=== PATIENT | male | born 1950 | race Hispanic/Latino ===

== ENCOUNTER 2016-08-06 22:38 | Observation (INO) | payer OTHER ==
[2016-08-06 22:49] VITALS: BMI 24.3
--- NOTE | 2016-08-06 23:01 | ED PDOC ---
Arrival/HPI - General Chief Complaint: Alcohol Ingestion Time Seen by Provider: 08/06/16 22:49 Historian: Patient, EMS - History of Present Illness Narrative History of Present Illness (Text): 08/06/16 23:00 Lloyd Sharma is a 65 year old male, whose past medical history includes gastritis, depression, anxiety, hypertension, chronic alcohol abuse, who presents to the Emergency department brought in by EMS for alcohol intoxication. Patient also admits to drinking alcohol. Patient has a history of rib fracture and reports he is also experiencing chronic left-sided rib pain. Patient denies any fever, chills, shortness of breath, nausea, vomiting, diarrhea, urinary symptoms, back pain, neck pain, headache, dizziness, or any other complaints. Time/Duration: Other (tonight) Symptom Onset: Gradual Symptom Course: Unchanged Activities at Onset: Rest, Light Context: Home Past Medical History - Provider Review Nursing Documentation Reviewed: Yes - Infectious Disease Hx of Infectious Diseases: None - Tetanus Immunization Tetanus Immunization: Unknown - Past Medical History Past Medical History: Unable to Obtain - Cardiac Hx Cardiac Disorders: No Hx Hypertension: No - Pulmonary Hx Pneumonia: Yes (01-06-15) - Neurological Hx Seizures: No - HEENT Hx HEENT Disorder: Yes - Renal Hx Renal Disorder: No - Endocrine/Metabolic Hx Endocrine Disorders: No - Hematological/Oncological Hx Blood Disorders: No Hx Cancer: No - Integumentary Hx Dermatological Disorder: Yes Other/Comment: multiple long scars to left forearm, multiple abrasions to right knee and b/l lower legs, poor hygiene - Musculoskeletal/Rheumatological Hx Fractures: Yes (LEFT HIP,LEFT ARM LEG) - Gastrointestinal Hx Gastritis: Yes Hx Gastrointestinal Ulcer: Yes - Genitourinary/Gynecological Hx Sexually Transmitted Diseases: No - Psychiatric Hx Anxiety: Yes Hx Bipolar Disorder: No Hx Depression: Yes Hx Schizophrenia: No Hx Substance Use: No (DENIES) - Past Surgical History Past Surgical History: Unable to Obtain - Surgical History Hx Appendectomy: Yes Hx Cholecystectomy: Yes - Anesthesia Hx Anesthesia: Yes Hx Anesthesia Reactions: No Hx Malignant Hyperthermia: No - Suicidal Assessment Feels Threatened In Home Enviroment: No Family/Social History - Physician Review Nursing Documentation Reviewed: Yes Family/Social History: No Known Family HX Smoking Status: Current Some Days Smoker Hx Alcohol Use: Yes (DRINKS DAILY VODKA 1.5 LITER) Hx Substance Use: No (DENIES) Hx Substance Use Treatment: Yes Allergies/Home Meds Allergies/Adverse Reactions: Allergies No Known Allergies Allergy (Verified 07/24/16 17:32) Home Medications: Home Meds Medication Instructions Recorded Confirmed Docusate Sodium [Col-Rite] 1 - 2 cap PO Q8 PRN 04/28/16 04/28/16 Lubiprostone [Amitiza] 8 mcg PO DAILY 04/28/16 04/28/16 Review of Systems - Physician Review All systems were reviewed & negative as marked: Yes - Review of Systems Constitutional: Normal. absent: Fevers Eyes: Normal ENT: Normal Respiratory: Normal. absent: SOB, Cough Gastrointestinal: Normal. absent: Abdominal Pain, Diarrhea, Nausea, Vomiting Genitourinary Male: Normal. absent: Dysuria, Frequency, Hematuria, Urinary Output Changes Musculoskeletal: Other (+left-sided rib pain). absent: Back Pain, Neck Pain Skin: Normal. absent: Rash Neurological: Normal. absent: Headache, Dizziness Endocrine: Normal Hemo/Lymphatic: Normal Psychiatric: Normal Physical Exam Vital Signs Reviewed: Yes Vital Signs Temp Pulse Resp BP Pulse Ox 08/07/16 18:00 98 F 96 H 18 119/71 96 08/07/16 16:00 95 H 18 111/88 96 08/07/16 13:57 92 H 18 116/88 96 08/07/16 11:50 95 H 20 100/90 96 08/07/16 10:14 102 H 18 105/50 L 97 08/07/16 07:51 99 H 18 123/74 95 08/07/16 05:10 101 H 18 124/79 94 L 08/07/16 04:12 98 H 18 111/67 95 08/07/16 02:05 97.8 F 93 H 16 104/66 95 08/06/16 23:19 97.6 F 100 H 18 112/76 96 Temperature: Afebrile Blood Pressure: Normal Pulse: Regular Respiratory Rate: Normal Appearance: Positive for: Well-Appearing, Non-Toxic, Comfortable Pain Distress: None Mental Status: Positive for: Alert and Oriented X 3 - Systems Exam Head: Present: Atraumatic, Normocephalic Pupils: Present: PERRL Extroacular Muscles: Present: EOMI Conjunctiva: Present: Normal Mouth: Present: Moist Mucous Membranes Neck: Present: Normal Range of Motion Respiratory/Chest: Present: Clear to Auscultation, Good Air Exchange. No: Respiratory Distress, Accessory Muscle Use Cardiovascular: Present: Regular Rate and Rhythm, Normal S1, S2. No: Murmurs Abdomen: Present: Normal Bowel Sounds. No: Tenderness, Distention, Peritoneal Signs Back: Present: Normal Inspection Upper Extremity: Present: Normal Inspection. No: Cyanosis, Edema Lower Extremity: Present: Normal Inspection. No: Edema Neurological: Present: GCS=15, CN II-XII Intact, Speech Normal Skin: Present: Warm, Dry, Normal Color. No: Rashes Psychiatric: Present: Alert, Oriented x 3, Normal Insight, Normal Concentration Medical Decision Making ED Course and Treatment: 08/06/16 23:00 Impression: 65 year old male brought in by EMS for left-sided rib pain and alcohol intoxication tonight. Differential Diagnosis include but are not limited to: alcohol intoxication vs. chronic pain vs. musculoskeletal pain Plan: -- EKG -- Chest X-ray -- Labs, alcohol level -- Reassess and disposition Prior Visits: Notes and results from previous visits were reviewed. - Lab Interpretations I have reviewed the lab results: Yes - EKG Interpretation Interpreted by ED Physician: Yes Type: 12 lead EKG - Medication Orders Current Medication Orders: Discontinued Medications Diazepam (Valium) 2 mg PO STAT STA PRN Reason: Protocol Stop: 08/07/16 07:49 Last Admin: 08/07/16 07:55 Dose: 2 MG Behavioural Document 08/07/16 07:55 [facility] (Rec: 08/07/16 07:55 [facility] [id number]) Maintenance Maintenance Dose No Nonmedicinal Nonmedicinal Interventions See nurse's notes Behavior Behavior for Medication: Anxiety Lorazepam (Ativan) 1 mg PO ONCE ONE PRN Reason: Protocol Stop: 08/07/16 10:00 Last Admin: 08/07/16 10:12 Dose: 1 MG Behavioural Document 08/07/16 10:12 [facility] (Rec: 08/07/16 10:12 [facility] [id number]) Maintenance Maintenance Dose No Nonmedicinal Nonmedicinal Interventions See nurse's notes Behavior Behavior for Medication: Anxiety Lorazepam (Ativan) 1 mg PO ONCE ONE PRN Reason: Protocol Stop: 08/07/16 13:47 Last Admin: 08/07/16 13:55 Dose: 1 MG Behavioural Document 08/07/16 13:55 [facility] (Rec: 08/07/16 13:55 [facility] [id number]) Maintenance Maintenance Dose No Nonmedicinal Nonmedicinal Interventions See nurse's notes Behavior Behavior for Medication: Anxiety ED OBSERVATION Date of observation admission: 08/06/16 Time of observation admission: 23:00 - Observation admission statement Patient is being placed in observation because:: alcohol intoxication - Goals of Observation Goals of observation are:: sobriety, observe for signs of withdrawal - Progress Note Progress Note: 08/06/16 23:00 Pt brought in for alcohol intoxication, chronic left-sided rib pain. Pt in no acute distress. Will observe until morning pending sobriety. 08/07/16 01:00 Reviewed radiology, Chest X-ray shows no active disease, no evidence of acute fracture. 08/07/16 01:41 reviewed labs, alcohol level:343. Pt resting comfortably, in no acute distress. 08/07/16 01:58 Reviewed EKG, sinus tachycardia at 102 bpm. No acute changes. Pt resting comfortably, no new complaints. 08/07/16 03:17 Pt sleeping currently, in no acute distress. 08/07/16 05:17 Pt resting comfortably, no new complaints. 08/07/16 07:[address] Crespo, pending sobriety, re-evaluation, and final disposition. - Scribe Statement The provider has reviewed the documentation as recorded by the Nadiya Jarrett Provider Attestation: All medical record entries made by the Khloeibadán were at my direction and personally dictated by me. I have reviewed the chart and agree that the record accurately reflects my personal performance of the history, physical exam, medical decision making, and the department course for this patient. I have also personally directed, reviewed, and agree with the discharge instructions and disposition. Disposition/Present on Arrival - Present on Arrival Any Indicators Present on Arrival: No History of DVT/PE: No History of Uncontrolled Diabetes: No Urinary Catheter: No History of Decub. Ulcer: No History Surgical Site Infection Following: None - Disposition Have Diagnosis and Disposition been Completed?: No Diagnosis: Alcohol intoxication Disposition: HOME/ ROUTINE Disposition Time: 07:00 Condition: STABLE
[2016-08-07 00:45] LABS: HEMATOCRIT 38.1 % (42.0-52.0); MEAN CORPUSCULAR HEMOGLOBIN 31.5 pg (25.0-35.0); MEAN CORPUSCULAR HGB CONC 35.4 g/dl (31.0-37.0); RED CELL DISTRIBUTION WIDTH 17.4 % (11.5-14.5); WHITE BLOOD COUNT 8.7 10^3/ul (4.5-11.0)
[2016-08-07 01:00] LABS: ALB/GLOB RATIO 1.2 (1.1-1.8); ALKALINE PHOSPHATASE 106 U/L (38-133); ALT/SGPT 40 U/L (7-56); AST/SGOT 67 U/L (15-59); BILIRUBIN,TOTAL 0.7 mg/dL (0.2-1.3); BLOOD UREA NITROGEN 9 mg/dL (7-21); CALCIUM 8.8 mg/dL (8.4-10.5); CARBON DIOXIDE 30 mmol/L (21-33); CHLORIDE 99 mmol/L (95-110); GFR AFRICAN-AMERICAN > 60; GLUCOSE,RANDOM 94 mg/dL (70-110); POTASSIUM 4.1 mmol/L (3.6-5.0); SODIUM 144 mmol/L (132-148); TOTAL PROTEIN 7.4 g/dL (5.8-8.3)
--- NOTE | 2016-08-07 07:46 | RAD ---
HISTORY: fever COMPARISON: Comparison chest dated 07/25/2016. FINDINGS: LUNGS: Hyperinflation consistent with underlying chronic changes of COPD and or emphysema. Mild biapical pleural thickening and associated adjacent parenchymal scarring/ fibrosis right greater than left. Bibasilar atelectasis and or scarring changes left greater than right. . . Re- demonstrated is apparent tiny granuloma left lung apex PLEURA: No significant pleural effusion identified, no pneumothorax apparent. CARDIOVASCULAR: Heart size is within range of normal. OSSEOUS STRUCTURES: No significant abnormalities. VISUALIZED UPPER ABDOMEN: Normal. OTHER FINDINGS: None. IMPRESSION: Hyperinflation consistent with underlying chronic changes of COPD and or emphysema. Mild biapical pleural thickening and associated adjacent parenchymal scarring/ fibrosis right greater than left. Bibasilar atelectasis and or scarring changes left greater than right. . . Re- demonstrated is apparent tiny granuloma left lung apex
--- NOTE | 2016-08-07 08:13 | ED PDOC ---
Physical Exam Vital Signs Reviewed: Yes Vital Signs Temp Pulse Resp BP Pulse Ox 08/07/16 13:57 92 H 18 116/88 96 08/07/16 11:50 95 H 20 100/90 96 08/07/16 10:14 102 H 18 105/50 L 97 08/07/16 07:51 99 H 18 123/74 95 08/07/16 05:10 101 H 18 124/79 94 L 08/07/16 04:12 98 H 18 111/67 95 08/07/16 02:05 97.8 F 93 H 16 104/66 95 08/06/16 23:19 97.6 F 100 H 18 112/76 96 Temperature: Afebrile Blood Pressure: Normal Pulse: Tachycardic Respiratory Rate: Normal Appearance: Positive for: Well-Appearing Pain Distress: None Mental Status: Positive for: Alert and Oriented X 3 Medical Decision Making ED Course and Treatment: 08/07/16 08:12 Patient was brought in to emergency department for public alcohol intoxication. Patient endorsed to me by , pending sobriety and reevaluation. Patient sober and steady. Sister arrived to take patient home. - Medication Orders Current Medication Orders: Discontinued Medications Diazepam (Valium) 2 mg PO STAT STA PRN Reason: Protocol Stop: 08/07/16 07:49 Last Admin: 08/07/16 07:55 Dose: 2 MG Behavioural Document 08/07/16 07:55 [facility] (Rec: 08/07/16 07:55 [facility] [id number]) Maintenance Maintenance Dose No Nonmedicinal Nonmedicinal Interventions See nurse's notes Behavior Behavior for Medication: Anxiety Lorazepam (Ativan) 1 mg PO ONCE ONE PRN Reason: Protocol Stop: 08/07/16 10:00 Last Admin: 08/07/16 10:12 Dose: 1 MG Behavioural Document 08/07/16 10:12 [facility] (Rec: 08/07/16 10:12 [facility] [id number]) Maintenance Maintenance Dose No Nonmedicinal Nonmedicinal Interventions See nurse's notes Behavior Behavior for Medication: Anxiety Lorazepam (Ativan) 1 mg PO ONCE ONE PRN Reason: Protocol Stop: 08/07/16 13:47 Last Admin: 08/07/16 13:55 Dose: 1 MG Behavioural Document 08/07/16 13:55 [facility] (Rec: 08/07/16 13:55 [facility] [place] [id number]) Maintenance Maintenance Dose No Nonmedicinal Nonmedicinal Interventions See nurse's notes Behavior Behavior for Medication: Anxiety Disposition/Present on Arrival - Present on Arrival Any Indicators Present on Arrival: No History of DVT/PE: No History of Uncontrolled Diabetes: No Urinary Catheter: No History of Decub. Ulcer: No History Surgical Site Infection Following: None - Disposition Have Diagnosis and Disposition been Completed?: Yes Diagnosis: Alcohol intoxication Disposition: HOME/ ROUTINE Disposition Time: 16:54 Patient Plan: Discharge Patient Problems: Current Active Problems Problem Status Diagnosed Alcohol intoxication Acute Condition: STABLE
[2016-08-07 11:53] VITALS: O2SAT 96
[2016-08-07 14:00] VITALS: RESP 18
[2016-08-07 18:41] VITALS: BP 119/71; PULSE 96; TEMP 98
--- NOTE | 2016-08-07 20:02 | CARD ---
APPROVED REPORT EKG Measurement Heart [id number] <Conclusion> Sinus tachycardia Otherwise normal ECG
== END 2016-08-07 16:55 | disposition home or self-care (01) ==
LOC: ED 22:38 → EROBSV 23:00
PROVIDERS: ADMIT Emergency Medicine; ATTEND Emergency Medicine
DX: F10.129 Alcohol abuse with intoxication, unspecified (principal); Y90.8 Blood alcohol level of 240 mg/100 ml or more; I10 Essential (primary) hypertension
CPT/HCPCS: 71010; 80053; 80320; 85027; 93005; 99285; G0378

== ENCOUNTER 2016-08-17 09:43 | Inpatient (IN) | payer OTHER, MEDICAID ==
[2016-08-17 09:51] VITALS: BMI 18.6
--- NOTE | 2016-08-17 10:05 | ED PDOC ---
Arrival/HPI - General Chief Complaint: Trauma Time Seen by Provider: 08/17/16 09:50 Historian: Patient - History of Present Illness Narrative History of Present Illness (Text): 08/17/16 10:02 65 year old male with a past medical history that includes gastritis, depression , anxiety, hypertension, hepatomegaly, chronic alcohol abuse, presents to the emergency department after fall today. Patient reports last drink was yesterday. pt angelito historian, well known to er for multiple visits for etoh abuse. No family members present at bedside to give further history. Time/Duration: Prior to Arrival Symptom Onset: Sudden Symptom Course: Unchanged Modifying Factors (Text): None Associated Symptoms (Text): None Past Medical History - Provider Review Nursing Documentation Reviewed: Yes - Infectious Disease Hx of Infectious Diseases: None - Tetanus Immunization Tetanus Immunization: Unknown - Past Medical History Past Medical History: Unable to Obtain - Cardiac Hx Cardiac Disorders: No Hx Hypertension: No - Pulmonary Hx Pneumonia: Yes (01-06-15) - Neurological Hx Seizures: No - HEENT Hx HEENT Disorder: Yes - Renal Hx Renal Disorder: No - Endocrine/Metabolic Hx Endocrine Disorders: No - Hematological/Oncological Hx Blood Disorders: No Hx Cancer: No - Integumentary Hx Dermatological Disorder: Yes Other/Comment: multiple long scars to left forearm, multiple abrasions to right knee and b/l lower legs, poor hygiene - Musculoskeletal/Rheumatological Hx Fractures: Yes (LEFT HIP,LEFT ARM LEG) - Gastrointestinal Hx Gastritis: Yes Hx Gastrointestinal Ulcer: Yes - Genitourinary/Gynecological Hx Sexually Transmitted Diseases: No - Psychiatric Hx Anxiety: Yes Hx Bipolar Disorder: No Hx Depression: Yes Hx Schizophrenia: No Hx Substance Use: No (DENIES) - Past Surgical History Past Surgical History: Unable to Obtain - Surgical History Hx Appendectomy: Yes Hx Cholecystectomy: Yes - Anesthesia Hx Anesthesia: Yes Hx Anesthesia Reactions: No Hx Malignant Hyperthermia: No - Suicidal Assessment Feels Threatened In Home Enviroment: No Family/Social History - Physician Review Nursing Documentation Reviewed: Yes Family/Social History: Unknown Family HX Smoking Status: Current Some Days Smoker Hx Alcohol Use: Yes (DRINKS DAILY VODKA 1.5 LITER) Hx Substance Use: No (DENIES) Hx Substance Use Treatment: Yes Allergies/Home Meds Allergies/Adverse Reactions: Allergies No Known Allergies Allergy (Verified 08/17/16 21:58) Home Medications: Home Meds Medication Instructions Recorded Confirmed No Known Home Med 08/17/16 08/17/16 Physical Exam Vital Signs Reviewed: Yes Vital Signs Temp Pulse Resp BP Pulse Ox 08/17/16 20:13 98.2 F 117 H 22 118/79 95 08/17/16 16:15 90 16 97/59 L 95 08/17/16 15:00 87 18 116/65 95 08/17/16 13:58 111 H 21 118/61 96 08/17/16 12:39 106 H 18 111/73 95 08/17/16 11:43 95 H 16 109/77 92 L 08/17/16 09:51 98.3 F 107 H 18 125/85 100 Temperature: Afebrile Blood Pressure: Normal Pulse: Tachycardic Respiratory Rate: Normal Appearance: Positive for: Well-Appearing, Non-Toxic, Comfortable Pain Distress: None Mental Status: Positive for: other (Awake, alert, cooperative) Finger Stick Blood Glucose: 69 - Systems Exam Head: Present: Normocephalic, Abrasion (to the right side of the forehead) Conjunctiva: Present: Injected (right eye injected, left eye normal) Neck: Present: Normal Range of Motion Respiratory/Chest: Present: Clear to Auscultation, Good Air Exchange. No: Respiratory Distress, Accessory Muscle Use Cardiovascular: Present: Normal S1, S2. No: Murmurs Abdomen: Present: Normal Bowel Sounds. No: Tenderness, Distention, Peritoneal Signs Upper Extremity: Present: Normal Inspection. No: Cyanosis, Edema Lower Extremity: Present: Normal Inspection. No: Edema Neurological: Present: GCS=15, CN II-XII Intact, Speech Normal Skin: Present: Warm, Dry, Normal Color. No: Rashes Psychiatric: Present: Alert, Normal Concentration Medical Decision Making ED Course and Treatment: Impression: 65 year old male, pmhx that includes gastritis, depression, anxiety , htn, hepatomegaly, chronic alcohol abuse, presents to the emergency department with abrasion to the right side of the face s/p fall today. Differential Diagnosis include but are not limited to: Plan: -- CT head, Chest X-ray -- Librium -- Labs -- Reassess and disposition Prior Visits: Notes and results from previous visits were reviewed. Patient last seen in ED on 08/06/16 for alcohol intoxication and discharged home. EKG: Ordered, reviewed, and independently interpreted the EKG. Rate : 100 BPM Rhythm : NSR Interpretation : No ST/T wave changes Comparison : No changes from previous EKG Progress Notes: 08/17/16 11:47 noted mild thromobcytopenia, pt has had in past. suspected 2/2 etoh abuse, hepatosplenomegaly. no e/o of active bleeding. 08/17/16 12:22 pt sleeping in nad. head ct neg. cxr neg as read by me. pt given food/juice for mild hypoglycemia 08/17/16 17:33 pt reassessed. now tachcardic to 130, tremlous. h/o of etoh w/d. ativan givne. dr park accepts - Lab Interpretations Lab Results: 08/17/16 10:45 08/17/16 10:45 Lab Results 08/17/16 10:45: WBC 9.1, RBC 4.35, Hgb 13.8 L, Hct 39.7 L, MCV 91.3, MCH 31.7, MCHC 34.8, RDW 17.7 H, Plt Count 73 L, MPV 11.0, Gran % 85.3 H, Lymph % (Auto) 8.1 L, Haakon % (Auto) 6.5 H, Eos % (Auto) 0.0 L, Baso % (Auto) 0.1, Gran # 7.78 H , Lymph # 0.7 L, Haakon # 0.6, Eos # 0.0, Baso # 0.01, PT 10.0, INR 0.93, APTT 30.5, Sodium 135, Potassium 3.3 L, Chloride 89 L, Carbon Dioxide 21, Anion Gap 28 H, BUN 17, Creatinine 0.7, Est GFR ( Amer) > 60, Est GFR (Non-Af Amer ) > 60, Random Glucose 66 L, Calcium 8.6, Phosphorus 3.6, Magnesium 2.1, Total Bilirubin 1.2, AST 135 H, ALT 67 H, Alkaline Phosphatase 114, Lactate Dehydrogenase 801 H, Total Creatine Kinase 179, Troponin I < 0.01, Total Protein 7.8, Albumin 4.4, Globulin 3.4, Albumin/Globulin Ratio 1.3, Lipase 290, Alcohol, Quantitative 190 H - RAD Interpretation Narrative RAD Interpretations (Text): CT Head Foundation Relations Manager: Dr. Miller Selina Normal CT of the head Radiology Orders: 08/17/16 10:01 HEAD W/O CONTRAST [CT] Stat 08/17/16 10:02 CHEST PORTABLE [RAD] Stat Core Feeder: Radiologist - EKG Interpretation Interpreted by ED Physician: Yes Type: 12 lead EKG - Medication Orders Current Medication Orders: Multivitamins/Vitamin C 10 ml/Thiamine HCl 100 mg/ Folic Acid 1 mg/ Sodium Chloride 1,011.2 mls @ 100 mls/hr IV .[id number] ONE Stop: 08/18/16 17:05 Lorazepam (Ativan) 2 mg IVP Q2H PRN; Protocol PRN Reason: Symptoms of alcohol withdrawl Last Admin: 08/17/16 20:00 Dose: 2 MG Behavioural Document 08/17/16 20:00 [facility] (Rec: 08/17/16 20:01 [id number] Maintenance Maintenance Dose No Nonmedicinal Nonmedicinal Interventions See nurse's notes Behavior Behavior for Medication: Anxiety Behavior Comment alcohol withdrawal IVP Administration Document 08/17/16 20:00 MMA (Rec: 08/17/16 20:01 [id number] Charges for Administration # of IVP Administrations 1 Re-Assess: Reassess Psych Meds Document 08/17/16 20:30 DS (Rec: 08/17/16 20:37 DS [id number]) Reassess Psych Med Effective Lorazepam (Ativan) 2 mg IVP Q4H SUMIT PRN Reason: Protocol Last Admin: 08/18/16 03:46 Dose: 2 MG Behavioural Document 08/18/16 03:46 DS (Rec: 08/18/16 03:47 DS [id number]) Nonmedicinal Nonmedicinal Interventions Therapeutic Communication Behavior Behavior for Medication: Anxiety Continuous pacing/restlessness IVP Administration Document 08/18/16 03:46 DS (Rec: 08/18/16 03:47 DS [id number]) Charges for Administration # of IVP Administrations 1 Re-Assess: Reassess Psych Meds Document 08/18/16 04:16 DS (Rec: 08/18/16 04:22 DS [id number]) Reassess Psych Med Effective Ondansetron HCl (Zofran Inj) 4 mg IVP Q6H PRN PRN Reason: Nausea/Vomiting Pantoprazole Sodium (Protonix Inj) 40 mg IVP DAILY SUMIT Discontinued Medications Chlordiazepoxide (Librium) 50 mg PO STAT STA PRN Reason: Protocol Stop: 08/17/16 10:04 Last Admin: 08/17/16 10:48 Dose: 50 MG Behavioural Document 08/17/16 10:48 [facility] (Rec: 08/17/16 10:48 [id number]) Maintenance Maintenance Dose No Nonmedicinal Nonmedicinal Interventions Redirect Behavior Behavior for Medication: Anxiety Multivitamins/Vitamin C 10 ml/Thiamine HCl 100 mg/ Folic Acid 1 mg/ Potassium Chloride 40 meq/ Sodium Chloride 1,031.2 mls @ 100 mls/hr IV .[id number] ONE Stop: 08/18/16 05:52 Last Admin: 08/17/16 22:15 Dose: 100 MLS/HR eMAR Start Stop Document 08/17/16 22:15 DS (Rec: 08/17/16 22:15 DS [id number]) Intravenous Solution Start Date 08/17/16 Start Time 22:15 End Date 08/18/16 Lorazepam (Ativan) 1 mg IVP STAT STA PRN Reason: Protocol Stop: 08/17/16 17:22 Last Admin: 08/17/16 17:42 Dose: 1 MG Behavioural Document 08/17/16 17:42 MMA (Rec: 08/17/16 17:43 [id number] Maintenance Maintenance Dose No Nonmedicinal Nonmedicinal Interventions Redirect Behavior Behavior for Medication: Anxiety IVP Administration Document 08/17/16 17:42 MMA (Rec: 08/17/16 17:43 MMA [id number]) Charges for Administration # of IVP Administrations 1 Pneumococcal Polyvalent Vaccine (Pneumovax 23 Vaccine) 0.5 ml IM .ONCE ONE Stop: 08/17/16 22:37 Last Admin: 08/17/16 23:39 Dose: Potassium Chloride (K-Dur 20 Meq Er Tab) 40 meq PO STAT STA Stop: 08/17/16 11:42 Last Admin: 08/17/16 12:31 Dose: 40 MEQ ED OBSERVATION Date of observation admission: 08/17/16 Time of observation admission: 12:30 - Observation admission statement Patient is being placed in observation because:: alcohol intoxication - Goals of Observation Goals of observation are:: pending sobriety - Progress Note Progress Note: 08/17/16 12:31 Patient resting comfortably in no acute distress. - Scribe Statement The provider has reviewed the documentation as recorded by the Nadiya Mclean Provider Scribe Attestation: All medical record entries made by the Khloeibe were at my direction and personally dictated by me. I have reviewed the chart and agree that the record accurately reflects my personal performance of the history, physical exam, medical decision making, and the department course for this patient. I have also personally directed, reviewed, and agree with the discharge instructions and disposition. Disposition/Present on Arrival - Present on Arrival Any Indicators Present on Arrival: No History of DVT/PE: No History of Uncontrolled Diabetes: No Urinary Catheter: No History of Decub. Ulcer: No History Surgical Site Infection Following: None - Disposition Have Diagnosis and Disposition been Completed?: Yes Diagnosis: Alcohol withdrawal Disposition: HOSPITALIZED Disposition Time: 18:06 Patient Problems: Current Active Problems Problem Status Diagnosed Alcohol withdrawal Acute Condition: FAIR
[2016-08-17] MEDS ORDERED: TDAP Vaccine 0.5 mL Syr IM ONE (10:32)
[2016-08-17 10:57] LABS: ADD MANUAL DIFF? NO
[2016-08-17 11:00] LABS: BASO # 0.01 K/mm3 (0.0-2.0); BASO % 0.1 % (0.0-3.0); GRAN # 7.78 (1.4-6.5); GRAN % 85.3 % (50.0-68.0); HEMATOCRIT 39.7 % (42.0-52.0); LYMPH # 0.7 (1.2-3.4); LYMPH % 8.1 % (22.0-35.0); MEAN CELL VOLUME 91.3 fL (80.0-105.0); MEAN CORPUSCULAR HEMOGLOBIN 31.7 pg (25.0-35.0); MEAN CORPUSCULAR HGB CONC 34.8 g/dl (31.0-37.0); MONO # 0.6 (0.1-0.6); MONO % 6.5 % (1.0-6.0); PLATELET COUNT 73 10^3/uL (120.0-450.0); RED CELL DISTRIBUTION WIDTH 17.7 % (11.5-14.5); WHITE BLOOD COUNT 9.1 10^3/ul (4.5-11.0)
[2016-08-17 11:10] LABS: ALB/GLOB RATIO 1.3 (1.1-1.8); ALKALINE PHOSPHATASE 114 U/L (38-133); ALT/SGPT 67 U/L (7-56); AST/SGOT 135 U/L (15-59); BILIRUBIN,TOTAL 1.2 mg/dL (0.2-1.3); BLOOD UREA NITROGEN 17 mg/dL (7-21); CALCIUM 8.6 mg/dL (8.4-10.5); CARBON DIOXIDE 21 mmol/L (21-33); CHLORIDE 89 mmol/L (98-107); GFR AFRICAN-AMERICAN > 60; GLUCOSE,RANDOM 66 mg/dL (70-110); POTASSIUM 3.3 mmol/L (3.6-5.0); SODIUM 135 mmol/L (132-148); TOTAL PROTEIN 7.8 g/dL (5.8-8.3)
[2016-08-17 11:11] LABS: INR 0.93 (0.93-1.08); PARTIAL THROMBOPLASTIN TIME 30.5 Seconds (23.7-30.8)
[2016-08-17 11:38] LABS: TROPONIN I < 0.01 ng/mL
[2016-08-17] MEDS ORDERED: Potassium Chloride 20 mEq ER Tab PO STA (11:41)
--- NOTE | 2016-08-17 12:21 | CT ---
PROCEDURE: CT HEAD WITHOUT CONTRAST. HISTORY: fall COMPARISON: None available. TECHNIQUE: Axial computed tomography images were obtained through the head/brain without intravenous contrast. Radiation dose: Total exam DLP = 1500 mGy-cm. FINDINGS: HEMORRHAGE: No intracranial hemorrhage. BRAIN: No mass effect or edema. No atrophy or chronic microvascular ischemic changes. VENTRICLES: Unremarkable. No hydrocephalus. CALVARIUM: Unremarkable. PARANASAL SINUSES: Unremarkable as visualized. No significant inflammatory changes. MASTOID AIR CELLS: Unremarkable as visualized. No inflammatory changes. OTHER FINDINGS: None. IMPRESSION: Normal CT of the Head.
--- NOTE | 2016-08-17 13:48 | RAD ---
HISTORY: fall COMPARISON: No prior. FINDINGS: LUNGS: No active pulmonary disease. PLEURA: No significant pleural effusion identified, no pneumothorax apparent. CARDIOVASCULAR: Normal. OSSEOUS STRUCTURES: No significant abnormalities. VISUALIZED UPPER ABDOMEN: Normal. OTHER FINDINGS: None. IMPRESSION: No active disease.
--- NOTE | 2016-08-17 18:41 | CARD ---
APPROVED REPORT EKG Measurement Heart [id number] <Conclusion> Normal sinus rhythm Voltage criteria for left ventricular hypertrophy Abnormal ECG
[2016-08-17] MEDS ORDERED: Multivitamin (MVI) 10 ML, Thiamine 100 MG, Folic Acid 1 MG, Potassium Chloride 40 MEQ i... IV ONE (19:34)
[2016-08-17 19:59] LABS: URINE BILIRUBIN NEGATIVE (NEGATIVE); URINE BLOOD NEGATIVE (NEGATIVE); URINE GLUCOSE (UA) NEGATIVE (NEGATIVE); URINE KETONE 40 mg/dL (NEGATIVE); URINE LEUKOCYTE ESTERASE NEGATIVE Leu/uL (NEGATIVE); URINE PROTEIN 100 mg/dL (<30 mg/dL)
[2016-08-17 20:02] LABS: URINE APPEARANCE SL CLOUDY (CLEAR); URINE COLOR YELLOW (YELLOW)
--- NOTE | 2016-08-17 20:03 | CP.PCM.HP ---
History of Present Illness - History of Present Illness History of Present Illness: cc: Fall HPI: Patient is a 65 yo Male with past medical history of depression, anxiety, hypertension, hepatomegaly, chronic ETOH abuse that was brought in by EMS s/p fall at home. Patient states that he had one pint of vodka to drink earlier and shortly thereafter fell. He reported that his sister called EMS and he does not recall the specifics of his fall, however denies loss of consciousness. He reported poor appetite, epigastric abdominal tenderness as well as nausea but no vomiting. On arrival to the ED, patient's vitals were as follows: temperature 98.3F, heart rate 107bpm, BP 125/85, RR 18, O2sat 100% on room air. EKG revealed normal sinus rhythm at 100bpm with no acute ST-T wave changes. CXR was negative for acute pathology. Head CT was negative for fractures and acute intracranial pathology. Patient denied chest pain, palpitations, SOB, melena, hematochezia, hematemesis, fever, chills, cough. 12point ROS completed and as stated above, otherwise negative PMHx: depression, anxiety, hypertension, hepatomegaly, chronic ETOH abuse PSHx: Elzbieta oscar Family Hx: Non contributory Social Hx: Chronic ETOH abuse ~1liter vodka everyday, active tobacco user ~1ppd , denies illicit drug use Allergy: NKDA Present on Admission - Present on Admission Any Indicators Present on Admission: No Past Patient History - Infectious Disease Hx of Infectious Diseases: None - Tetanus Immunizations Tetanus Immunization: Unknown - Past Medical History & Family History Past Medical History?: Yes - Past Social History Smoking Status: Current Some Days Smoker - CARDIAC Hx Cardiac Disorders: No Hx Hypertension: No - PULMONARY Hx Pneumonia: Yes (01-06-15) - NEUROLOGICAL Hx Seizures: No - HEENT Hx HEENT Problems: Yes - RENAL Hx Chronic Kidney Disease: No - ENDOCRINE/METABOLIC Hx Endocrine Disorders: No - HEMATOLOGICAL/ONCOLOGICAL Hx Blood Disorders: No Hx Cancer: No - INTEGUMENTARY Hx Dermatological Problems: Yes Other/Comment: multiple long scars to left forearm, multiple abrasions to right knee and b/l lower legs, poor hygiene - MUSCULOSKELETAL/RHEUMATOLOGICAL Hx Fractures: Yes (LEFT HIP,LEFT ARM LEG) - GASTROINTESTINAL Hx Gastritis: Yes - GENITOURINARY/GYNECOLOGICAL Hx Sexually Transmitted Disorders: No - PSYCHIATRIC Hx Anxiety: Yes Hx Bipolar Disorder: No Hx Depression: Yes Hx Schizophrenia: No Hx Substance Use: No (DENIES) - SURGICAL HISTORY Hx Appendectomy: Yes Hx Cholecystectomy: Yes - ANESTHESIA Hx Anesthesia: Yes Hx Anesthesia Reactions: No Hx Malignant Hyperthermia: No Meds Allergies/Adverse Reactions: Allergies Allergy/AdvReac Type Severity Reaction Status Date / Time No Known Allergies Allergy Verified 08/17/16 09:47 Physical Exam - Constitutional Appears: No Acute Distress, Unkempt, Cachectic - Head Exam Head Exam: NORMOCEPHALIC - Eye Exam Eye Exam: EOMI, PERRL. absent: Periorbital swelling, Periorbital tenderness, Scleral icterus Additional comments: right eye conjuctival hemorrhage EOMI, PERRLA - ENT Exam ENT Exam: Mucous Membranes Moist - Respiratory Exam Respiratory Exam: Clear to Auscultation Bilateral. absent: Accessory Muscle Use , Chest Wall Tenderness, Rales, Rhonchi, Wheezes - Cardiovascular Exam Cardiovascular Exam: RRR, +S1, +S2. absent: Clicks, Diastolic murmur, Gallop, Rubs, Systolic Murmur - GI/Abdominal Exam GI & Abdominal Exam: Normal Bowel Sounds, Soft. absent: Distended, Firm, Guarding, Rebound, Tenderness - Neurological Exam Neurological exam: Alert, CN II-XII Intact, Oriented x3 Additional comments: tremulous - Psychiatric Exam Psychiatric exam: Anxious - Skin Skin Exam: Abrasion, Dry, Intact, Normal Color, Warm Results - Vital Signs Recent Vital Signs: Last Vital Signs Temp 98.3 F 08/17/16 09:51 Pulse 90 08/17/16 16:15 Resp 16 08/17/16 16:15 BP 97/59 L 08/17/16 16:15 Pulse Ox 95 08/17/16 16:15 - Labs Result Diagrams: 08/17/16 10:45 08/17/16 10:45 Assessment & Plan - Assessment and Plan (Free Text) Assessment: 65 yo Male with history of depression, anxiety, hypertension, hepatomegaly, chronic ETOH abuse that was brought in by EMS s/p fall at home. Admitted to chronic ETOH abuse and having had one pint of vodka today. 1. Alcohol intoxication/withdrawal 2. Thrombocytopenia likely 2/2 alcohol abuse 3. Hypokalemia 4. Transaminitis Plan: -Ativan 2q2 PRN and 2q4 SUMIT -Banana bag w/ potassium repletion -CIWA protocol -Aspiration/Seizure precautions -Lipase/Magnesium/Phosph pending -Drug screen pending -NPO diet -SCD's -Protonix for GI prophylaxis -EKG reviewed -CT Head and CXR reviewed - Date & Time Date: 08/17/16 Time: 20:12
[2016-08-17 20:06] LABS: URINE RBC NEGATIVE /hpf (0-2); URINE WBC 0 - 2 /hpf (0-6)
[2016-08-17 20:14] LABS: MAGNESIUM 2.1 mg/dL (1.7-2.2); PHOSPHOROUS 3.6 mg/dL (2.5-4.5)
[2016-08-17] MEDS ORDERED: Pneumococcal 23-Valent Vaccine IM ONE (22:36)
[2016-08-18 06:53] LABS: ADD MANUAL DIFF? NO
[2016-08-18] MEDS ORDERED: Multivitamin (MVI) 10 ML, Thiamine 100 MG, Folic Acid 1 MG in Sodium Chloride 0.9% 1,00... IV ONE (06:59)
[2016-08-18 07:01] LABS: GRAN % 84.1 % (50.0-68.0); HEMATOCRIT 33.5 % (42.0-52.0); LYMPH # 1.1 (1.2-3.4); LYMPH % 10.1 % (22.0-35.0); MEAN CELL VOLUME 90.3 fL (80.0-105.0); MEAN CORPUSCULAR HEMOGLOBIN 31.5 pg (25.0-35.0); MEAN CORPUSCULAR HGB CONC 34.9 g/dl (31.0-37.0); MEAN PLATELET VOLUME 10.4 fl (7.0-11.0); MONO # 0.6 (0.1-0.6); MONO % 5.8 % (1.0-6.0); PLATELET COUNT 63 10^3/uL (120.0-450.0); RED CELL DISTRIBUTION WIDTH 17.7 % (11.5-14.5); WHITE BLOOD COUNT 11.1 10^3/ul (4.5-11.0)
[2016-08-18 07:13] LABS: ALB/GLOB RATIO 1.2 (1.1-1.8); ALKALINE PHOSPHATASE 87 U/L (38-133); ALT/SGPT 44 U/L (7-56); AST/SGOT 86 U/L (15-59); BILIRUBIN,TOTAL 1.4 mg/dL (0.2-1.3); BLOOD UREA NITROGEN 17 mg/dL (7-21); CALCIUM 8.9 mg/dL (8.4-10.5); CARBON DIOXIDE 30 mmol/L (21-33); CHLORIDE 93 mmol/L (98-107); GFR AFRICAN-AMERICAN > 60; GLUCOSE,RANDOM 93 mg/dL (70-110); MAGNESIUM 1.9 mg/dL (1.7-2.2); PHOSPHOROUS 2.6 mg/dL (2.5-4.5); POTASSIUM 3.4 mmol/L (3.6-5.0); SODIUM 133 mmol/L (132-148); TOTAL PROTEIN 6.5 g/dL (5.8-8.3)
[2016-08-18] MEDS: Potassium Chloride 20 mEq 100 ML IVPB SCH ×2 (08:38→15:05)
--- NOTE | 2016-08-18 20:21 | CP.PCM.PN ---
Subjective - Date & Time of Evaluation Date of Evaluation: 08/18/16 Time of Evaluation: 20:20 - Subjective Subjective: # 22 angiocath was inserted in right arm. Dx:Poor venous access. Objective - Vital Signs/Intake and Output Vital Signs (last 24 hours): Temp Pulse Resp BP Pulse Ox 99.5 F 108 H 22 127/78 97 08/18/16 18:00 08/18/16 18:00 08/18/16 18:00 08/18/16 18:00 08/18/16 18:00 Intake and Output: 08/18/16 08/19/16 18:59 06:59 Intake Total 1320 Balance 1320 - Medications Medications: Current Medications Chlordiazepoxide (Librium) 25 mg PO Q8 PRN; Protocol PRN Reason: Symptoms of alcohol withdrawl Famotidine (Pepcid) 20 mg PO 1000,2200 [facility] Folic Acid (Folic Acid) 1 mg PO DAILY [facility] Lorazepam (Ativan) 2 mg IVP Q2H PRN; Protocol PRN Reason: Symptoms of alcohol withdrawl Last Admin: 08/18/16 15:11 Dose: 2 mg Lorazepam (Ativan) 2 mg IVP Q4H [facility] PRN Reason: Protocol Last Admin: 08/18/16 20:17 Dose: 2 mg Multivitamins (Thera Tab) 1 tab PO DAILY [facility] Ondansetron HCl (Zofran Inj) 4 mg IVP Q6H PRN PRN Reason: Nausea/Vomiting Thiamine HCl (Vitamin B1 Tab) 100 mg PO DAILY [facility]IT - Labs Labs: 08/18/16 06:51 08/18/16 06:51 PT 10.0 Seconds (9.9-11.8) 08/17/16 10:45 INR 0.93 (0.93-1.08) 08/17/16 10:45 APTT 30.5 Seconds (23.7-30.8) 08/17/16 10:45
[2016-08-19 06:46] LABS: HEMATOCRIT 33.7 % (42.0-52.0); MEAN CELL VOLUME 90.8 fL (80.0-105.0); MEAN CORPUSCULAR HEMOGLOBIN 31.3 pg (25.0-35.0); MEAN CORPUSCULAR HGB CONC 34.4 g/dl (31.0-37.0); MEAN PLATELET VOLUME 10.8 fl (7.0-11.0); RED CELL DISTRIBUTION WIDTH 17.3 % (11.5-14.5); WHITE BLOOD COUNT 7.6 10^3/ul (4.5-11.0)
[2016-08-19 07:11] LABS: ALKALINE PHOSPHATASE 88 U/L (38-133); ALT/SGPT 42 U/L (7-56); AST/SGOT 66 U/L (15-59); BILIRUBIN,TOTAL 1.2 mg/dL (0.2-1.3); BLOOD UREA NITROGEN 10 mg/dL (7-21); CALCIUM 8.9 mg/dL (8.4-10.5); CARBON DIOXIDE 28 mmol/L (21-33); CHLORIDE 95 mmol/L (95-110); GFR AFRICAN-AMERICAN > 60; GLUCOSE,RANDOM 85 mg/dL (70-110); MAGNESIUM 1.7 mg/dL (1.7-2.2); POTASSIUM 3.5 mmol/L (3.6-5.0); SODIUM 133 mmol/L (132-148); TOTAL PROTEIN 6.9 g/dL (5.8-8.3)
[2016-08-19] MEDS: Multivitamin Therapeutic Tab PO SCH (09:41)
--- NOTE | 2016-08-19 11:05 | CP.PCM.PN ---
<Mann Briscoe - Last Filed: 08/19/16 11:01> Subjective - Date & Time of Evaluation Date of Evaluation: 08/19/16 Time of Evaluation: 11:01 - Subjective Subjective: Pt seen and examined at bedside. Pt is lethargic this morning and unable to answer questions. Pt had no acute events overnight. Pt was agitated yesterday and received multiple doses of ativan during the day. Objective - Vital Signs/Intake and Output Vital Signs (last 24 hours): Temp Pulse Resp BP Pulse Ox 98 F 91 H 19 114/79 96 08/19/16 05:32 08/19/16 05:32 08/19/16 05:32 08/19/16 05:32 08/19/16 05:32 Intake and Output: 08/19/16 08/19/16 06:59 18:59 Intake Total 1320 Output Total 0 Balance 1320 - Medications Medications: Current Medications Chlordiazepoxide (Librium) 12.5 mg PO Q8 PRN; Protocol PRN Reason: Symptoms of alcohol withdrawl Famotidine (Pepcid) 20 mg PO 1000,2200 [facility] Last Admin: 08/19/16 09:41 Dose: 20 mg Folic Acid (Folic Acid) 1 mg PO DAILY [facility] Last Admin: 08/19/16 09:41 Dose: 1 mg Lorazepam (Ativan) 2 mg IVP Q2H PRN; Protocol PRN Reason: Symptoms of alcohol withdrawl Last Admin: 08/18/16 15:11 Dose: 2 mg Lorazepam (Ativan) 2 mg IVP Q4H [facility] PRN Reason: Protocol Last Admin: 08/19/16 08:42 Dose: 2 mg Multivitamins (Thera Tab) 1 tab PO DAILY [facility] Last Admin: 08/19/16 09:41 Dose: 1 tab Ondansetron HCl (Zofran Inj) 4 mg IVP Q6H PRN PRN Reason: Nausea/Vomiting Thiamine HCl (Vitamin B1 Tab) 100 mg PO DAILY [facility] Last Admin: 08/19/16 09:41 Dose: 100 mg - Labs Labs: 08/19/16 05:30 08/19/16 05:30 PT 10.0 Seconds (9.9-11.8) 08/17/16 10:45 INR 0.93 (0.93-1.08) 08/17/16 10:45 APTT 30.5 Seconds (23.7-30.8) 08/17/16 10:45 - Constitutional Appears: Non-toxic, No Acute Distress - Head Exam Head Exam: NORMOCEPHALIC - Eye Exam Additional comments: Right orbit hematoma - ENT Exam ENT Exam: Mucous Membranes Moist, Normal Exam - Respiratory Exam Respiratory Exam: Clear to Ausculation Bilateral, NORMAL BREATHING PATTERN. absent: Rhonchi, Wheezes - Cardiovascular Exam Cardiovascular Exam: RRR, +S1, +S2 - GI/Abdominal Exam GI & Abdominal Exam: Soft, Normal Bowel Sounds. absent: Tenderness - Extremities Exam Extremities Exam: Normal Inspection. absent: Calf Tenderness, Pedal Edema - Neurological Exam Neurological Exam: Awake - Skin Skin Exam: Normal Color, Warm Additional comments: Multiple abrasions over the legs b/l Assessment and Plan - Assessment and Plan (Free Text) Plan: 65 y/o M with PMH of depression, anxiety, hypertension, hepatomegaly, chronic ETOH abuse that presents for alcohol intoxication s/p fall. Pt had head CT in ED which was negative for acute pathology. Pt agitated yesterday and was given multiple doses of ativan for sedation. Pt is currently on a ymrna, but is lethargic, likely due to sedation. Pt will have librium tapered today. 1. Alcohol withdrawal - Banana bag - Librium changed to 12.5 mg q8h - Ativan prn - Seizure precautions - Aspiration precautions 2. Thrombocytopenia - likely secondary to alcohol induced bone-marrow suppression - Stable - Continue to monitor 3. Hypokalemia - K-rider given 4. PPX - Pepcid - SCDs Seen, reviewed, and discussed with attending. Luis Felipe, PGY-1 <Christy GOYAL,Lauren - Last Filed: 08/19/16 18:01> Objective - Vital Signs/Intake and Output Vital Signs (last 24 hours): Temp Pulse Resp BP Pulse Ox 98.9 F 103 H 20 108/73 98 08/19/16 15:43 08/19/16 15:43 08/19/16 15:43 08/19/16 15:43 08/19/16 15:43 Intake and Output: 08/19/16 08/19/16 06:59 18:59 Intake Total 1320 Output Total 0 Balance 1320 - Medications Medications: Current Medications Chlordiazepoxide (Librium) 12.5 mg PO Q8 PRN; Protocol PRN Reason: Symptoms of alcohol withdrawl Famotidine (Pepcid) 20 mg PO 1000,2200 [facility] Last Admin: 08/19/16 09:41 Dose: 20 mg Folic Acid (Folic Acid) 1 mg PO DAILY [facility] Last Admin: 08/19/16 09:41 Dose: 1 mg Lorazepam (Ativan) 2 mg IVP Q2H PRN; Protocol PRN Reason: Symptoms of alcohol withdrawl Last Admin: 08/18/16 15:11 Dose: 2 mg Lorazepam (Ativan) 2 mg IVP Q4H [facility] PRN Reason: Protocol Last Admin: 08/19/16 16:01 Dose: 2 mg Multivitamins (Thera Tab) 1 tab PO DAILY [facility] Last Admin: 08/19/16 09:41 Dose: 1 tab Ondansetron HCl (Zofran Inj) 4 mg IVP Q6H PRN PRN Reason: Nausea/Vomiting Thiamine HCl (Vitamin B1 Tab) 100 mg PO DAILY [facility] Last Admin: 08/19/16 09:41 Dose: 100 mg - Labs Labs: 08/19/16 05:30 08/19/16 05:30 PT 10.0 Seconds (9.9-11.8) 08/17/16 10:45 INR 0.93 (0.93-1.08) 08/17/16 10:45 APTT 30.5 Seconds (23.7-30.8) 08/17/16 10:45 Attending/Attestation - Attestation I have personally seen and examined this patient.: Yes I have fully participated in the care of the patient.: Yes I have reviewed all pertinent clinical information, including history, physical exam and plan: Yes Notes (Text): Patient was seen and examined with medical and scientific illustrator .Agreed with resident assessment and plan. Patient alcohol withdrawal are improving, no arrhythmia on telemetry, we will discontinue telemetry.Patient is high risk for fall.We will continue monitoring. Prognosis is guarded due to non compliance.
[2016-08-19] MEDS: Potassium Chloride 10 mEq 100 ML IVPB SCH ×2 (12:04→16:44)
--- NOTE | 2016-08-19 12:55 | CP.PCM.PN ---
Subjective - Date & Time of Evaluation Date of Evaluation: 08/18/16 Time of Evaluation: 08:15 - Subjective Subjective: Patient seen and examined at bedside. No acute events reported overnight. He complaints of tremor. Admits to still drinking about 1 pint daily. He appears comfortable eating breakfast without any other complaints. Review of Systems - Review of Systems All systems: reviewed and no additional remarkable complaints except - Constitutional Constitutional: Weakness. absent: Fever, Chills - EENT Eyes: absent: Blurred Vision Ears: absent: Dizziness - Cardiovascular Cardiovascular: absent: Chest Pain, Dyspnea - Respiratory Respiratory: absent: Cough, Dyspnea - Gastrointestinal Gastrointestinal: absent: Abdominal Pain, Nausea, Vomiting - Genitourinary Genitourinary: absent: Dysuria - Musculoskeletal Additional comments: tremor - Neurological Neurological: Tremor, Weakness - Psychiatric Psychiatric: absent: Anxiety Objective - Vital Signs/Intake and Output Vital Signs (last 24 hours): Temp Pulse Resp BP Pulse Ox 97.8 F 99 H 19 110/78 96 08/18/16 06:00 08/18/16 06:00 08/18/16 06:00 08/18/16 06:00 08/18/16 06:00 Intake and Output: 08/18/16 08/18/16 06:59 18:59 Intake Total 875 Output Total 400 Balance 475 - Medications Medications: Current Medications Multivitamins/Vitamin C 10 ml/Thiamine HCl 100 mg/ Folic Acid 1 mg/ Sodium Chloride 1,011.2 mls @ 100 mls/hr IV .Q10H7M ONE Stop: 08/18/16 17:05 Potassium Chloride (Potassium Chloride 20 Meq/100 Ml) 100 mls @ 50 mls/hr IVPB Q2H [facility] Stop: 08/18/16 11:44 Last Admin: 08/18/16 08:38 Dose: 50 mls/hr Lorazepam (Ativan) 2 mg IVP Q2H PRN; Protocol PRN Reason: Symptoms of alcohol withdrawl Last Admin: 08/17/16 20:00 Dose: 2 mg Lorazepam (Ativan) 2 mg IVP Q4H [facility] PRN Reason: Protocol Last Admin: 08/18/16 08:37 Dose: 2 mg Ondansetron HCl (Zofran Inj) 4 mg IVP Q6H PRN PRN Reason: Nausea/Vomiting Pantoprazole Sodium (Protonix Inj) 40 mg IVP DAILY [facility] Last Admin: 08/18/16 09:33 Dose: 40 mg - Labs Labs: 08/18/16 06:51 08/18/16 06:51 PT 10.0 Seconds (9.9-11.8) 08/17/16 10:45 INR 0.93 (0.93-1.08) 08/17/16 10:45 APTT 30.5 Seconds (23.7-30.8) 08/17/16 10:45 - Constitutional Appears: Well, No Acute Distress - Head Exam Additional comments: superficial cuts on face - Eye Exam Additional comments: eccymosis around right eye - ENT Exam ENT Exam: Normal Exam - Neck Exam Neck Exam: Full ROM - Respiratory Exam Respiratory Exam: Clear to Ausculation Bilateral. absent: Rales, Wheezes - Cardiovascular Exam Cardiovascular Exam: REGULAR RHYTHM, +S1, +S2 - GI/Abdominal Exam GI & Abdominal Exam: Soft, Normal Bowel Sounds. absent: Tenderness, Organomegaly - Extremities Exam Additional comments: +tremor of outstretched hands - Neurological Exam Neurological Exam: Awake, Oriented x3 - Psychiatric Exam Psychiatric exam: Normal Affect Assessment and Plan - Assessment and Plan (Free Text) Plan: This is a 65 year old male with past medical history of chronic alcohol abuse with multiple admissions for alcohol intoxication/withdrawal presented s/p fall at home. Found to have alcohol intoxication in ER, later complicated with withdrawals. 1. Alcohol withdrawal - Continue with banana bag, ativan deepak and ativan prn for withdrawal symptoms. He was counselled on risks of continued alcohol abuse. 2. S/p fall at home - Likely secondary to alcohol intoxication. CT head was negative. Will request for PT evaluation. 3. Elevated LFTs - Likely secondary to chronic etoh abuse. LFTs today are improving; will monitor. Last hepatitis panel was negative. 4. Hypokalemia - Will replete and repeat. 5. Thrombocytopenia - Likely secondary to chronic ETOH abuse. Will continue to monitor. Continue with SCDs for DVT prophylaxis and pepcid for GI prophylaxis.
[2016-08-19] MEDS ORDERED: Potassium Chloride 20 mEq/15 ml LIQ UD PO STA (16:41)
[2016-08-20 07:19] LABS: HEMATOCRIT 31.7 % (42.0-52.0); MEAN CELL VOLUME 92.2 fL (80.0-105.0); MEAN CORPUSCULAR HEMOGLOBIN 31.4 pg (25.0-35.0); MEAN CORPUSCULAR HGB CONC 34.1 g/dl (31.0-37.0); MEAN PLATELET VOLUME 10.4 fl (7.0-11.0); RED CELL DISTRIBUTION WIDTH 17.6 % (11.5-14.5); WHITE BLOOD COUNT 6.9 10^3/ul (4.5-11.0)
[2016-08-20 07:46] LABS: ALKALINE PHOSPHATASE 82 U/L (38-133); ALT/SGPT 41 U/L (7-56); AST/SGOT 54 U/L (15-59); BILIRUBIN,TOTAL 0.8 mg/dL (0.2-1.3); BLOOD UREA NITROGEN 15 mg/dL (7-21); CARBON DIOXIDE 26 mmol/L (21-33); CHLORIDE 96 mmol/L (98-107); GFR AFRICAN-AMERICAN > 60; GLUCOSE,RANDOM 92 mg/dL (70-110); POTASSIUM 4.3 mmol/L (3.6-5.0); SODIUM 130 mmol/L (132-148); TOTAL PROTEIN 6.5 g/dL (5.8-8.3)
[2016-08-20] MEDS ORDERED: Sodium Chloride 0.9% 1,000 ML IV STA (08:48)
[2016-08-20] MEDS: Multivitamin Therapeutic Tab PO SCH (09:39)
[2016-08-20 12:04] LABS: ARTERIAL BLOOD GAS HCO3 27.3 mmol/L (21-28); ARTERIAL BLOOD GAS O2 CAPACITY 14.4 mL/dl (16-24); ARTERIAL BLOOD GAS O2 CONTENT 14.2 ML/dl (15-23); ARTERIAL BLOOD HGB O2 SAT 95.1 % (95.0-98.0); CARBOXYHEMOGLOBIN 2.5 % (0.5-1.5); HHB 1.1 % (0-5); METHEMOGLOBIN 1.3 % (0.0-3.0)
[2016-08-21 07:17] LABS: MEAN CELL VOLUME 92.5 fL (80.0-105.0); MEAN CORPUSCULAR HEMOGLOBIN 31.3 pg (25.0-35.0); MEAN CORPUSCULAR HGB CONC 33.9 g/dl (31.0-37.0); MEAN PLATELET VOLUME 10.2 fl (7.0-11.0); RED CELL DISTRIBUTION WIDTH 17.6 % (11.5-14.5); WHITE BLOOD COUNT 8.5 10^3/ul (4.5-11.0)
[2016-08-21 07:25] LABS: ALKALINE PHOSPHATASE 77 U/L (38-133); ALT/SGPT 45 U/L (7-56); AST/SGOT 54 U/L (15-59); BILIRUBIN,TOTAL 0.7 mg/dL (0.2-1.3); BLOOD UREA NITROGEN 15 mg/dL (7-21); CALCIUM 9.2 mg/dL (8.4-10.5); CARBON DIOXIDE 27 mmol/L (21-33); CHLORIDE 95 mmol/L (98-107); GFR AFRICAN-AMERICAN > 60; GLUCOSE,RANDOM 92 mg/dL (70-110); POTASSIUM 4.1 mmol/L (3.6-5.0); SODIUM 131 mmol/L (132-148); TOTAL PROTEIN 6.6 g/dL (5.8-8.3)
[2016-08-21] MEDS: Multivitamin Therapeutic Tab PO SCH (10:35)
--- NOTE | 2016-08-21 13:06 | CP.PCM.PN ---
<Mann Briscoe - Last Filed: 08/21/16 13:07> Subjective - Date & Time of Evaluation Date of Evaluation: 08/20/16 Time of Evaluation: 09:00 - Subjective Subjective: Pt seen and examined at bedside. Pt not arousable and lethargic. No acute events overnight. Pt awake, but not responding to questions. ROS not obtainable. Objective - Vital Signs/Intake and Output Vital Signs (last 24 hours): Temp Pulse Resp BP Pulse Ox 98 F 93 H 20 108/70 94 L 08/21/16 08:11 08/21/16 08:11 08/21/16 08:11 08/21/16 08:11 08/21/16 08:11 Intake and Output: 08/21/16 08/21/16 06:59 18:59 Intake Total 540 Output Total 500 Balance 40 - Medications Medications: Current Medications Acetaminophen (Tylenol 325mg Tab) 650 mg PO Q4H PRN PRN Reason: Pain, moderate (4-7) Famotidine (Pepcid) 20 mg PO 1000,2200 [facility] Last Admin: 08/21/16 10:35 Dose: 20 mg Folic Acid (Folic Acid) 1 mg PO DAILY [facility] Last Admin: 08/21/16 10:34 Dose: 1 mg Multivitamins (Thera Tab) 1 tab PO DAILY [facility] Last Admin: 08/21/16 10:35 Dose: 1 tab Ondansetron HCl (Zofran Inj) 4 mg IVP Q6H PRN PRN Reason: Nausea/Vomiting Thiamine HCl (Vitamin B1 Tab) 100 mg PO DAILY [facility] Last Admin: 08/21/16 10:35 Dose: 100 mg - Labs Labs: 08/21/16 05:30 08/21/16 05:30 PT 10.0 Seconds (9.9-11.8) 08/17/16 10:45 INR 0.93 (0.93-1.08) 08/17/16 10:45 APTT 30.5 Seconds (23.7-30.8) 08/17/16 10:45 - Constitutional Appears: Non-toxic, No Acute Distress - Head Exam Head Exam: ATRAUMATIC, NORMAL INSPECTION, NORMOCEPHALIC - Respiratory Exam Respiratory Exam: Clear to Ausculation Bilateral, NORMAL BREATHING PATTERN. absent: Rhonchi, Wheezes - Cardiovascular Exam Cardiovascular Exam: RRR, +S1, +S2 - GI/Abdominal Exam GI & Abdominal Exam: Soft, Normal Bowel Sounds. absent: Tenderness - Extremities Exam Extremities Exam: Normal Inspection. absent: Calf Tenderness, Pedal Edema - Neurological Exam Neurological Exam: Alert, Awake Additional comments: Tremulous - Psychiatric Exam Psychiatric exam: Normal Affect, Normal Mood - Skin Skin Exam: Intact, Normal Color, Warm Assessment and Plan - Assessment and Plan (Free Text) Plan: 65 y/o M with PMH of depression, anxiety, hypertension, hepatomegaly, chronic ETOH abuse that presents for alcohol intoxication s/p fall. Head CT was negative. Pt too drowsy, all ativan and librium stopped at this time. Pt is off myrna at this time. Will continue to monitor for alcohol withdrawal. 1. Alcohol withdrawal - IVF stopped - Librium and ativan stopped 2. Thrombocytopenia - likely secondary to alcohol induced bone-marrow suppression - Stable - Continue to monitor 3. PPX - Pepcid - SCDs Seen, reviewed, and discussed with attending. Luis Felipe, PGY-1 <Christy GOYAL,Lauren - Last Filed: 08/21/16 16:59> Objective - Vital Signs/Intake and Output Vital Signs (last 24 hours): Temp Pulse Resp BP Pulse Ox 97.3 F L 98 H 20 97/71 L 97 08/21/16 16:00 08/21/16 16:00 08/21/16 16:00 08/21/16 16:00 08/21/16 16:00 Intake and Output: 08/21/16 08/21/16 06:59 18:59 Intake Total 540 Output Total 500 Balance 40 - Medications Medications: Current Medications Acetaminophen (Tylenol 325mg Tab) 650 mg PO Q4H PRN PRN Reason: Pain, moderate (4-7) Famotidine (Pepcid) 20 mg PO 1000,2200 [facility] Last Admin: 08/21/16 10:35 Dose: 20 mg Folic Acid (Folic Acid) 1 mg PO DAILY [facility] Last Admin: 08/21/16 10:34 Dose: 1 mg Multivitamins (Thera Tab) 1 tab PO DAILY [facility] Last Admin: 08/21/16 10:35 Dose: 1 tab Ondansetron HCl (Zofran Inj) 4 mg IVP Q6H PRN PRN Reason: Nausea/Vomiting Thiamine HCl (Vitamin B1 Tab) 100 mg PO DAILY [facility] Last Admin: 08/21/16 10:35 Dose: 100 mg - Labs Labs: 08/21/16 05:30 08/21/16 05:30 PT 10.0 Seconds (9.9-11.8) 08/17/16 10:45 INR 0.93 (0.93-1.08) 08/17/16 10:45 APTT 30.5 Seconds (23.7-30.8) 08/17/16 10:45 Attending/Attestation - Attestation I have personally seen and examined this patient.: Yes I have fully participated in the care of the patient.: Yes I have reviewed all pertinent clinical information, including history, physical exam and plan: Yes Notes (Text): 08/21/16 16:56 Patient was seen and examined with medical social consultant .Agreed with resident assessment and plan. Patient does not has any sign of alcohol withdrawal at this time.He is drowsy due to ativan given to him, benzodiazepam has been discontinued.There is no focal deficit.We will get physical therapy evaluation.He is very deconditioned , may need to go to rehab. Prognosis is guarded due to non compliance and ongoing alcohol abuse.
--- NOTE | 2016-08-21 13:15 | CP.PCM.PN ---
<Mann Briscoe - Last Filed: 08/21/16 13:12> Subjective - Date & Time of Evaluation Date of Evaluation: 08/21/16 Time of Evaluation: 13:12 - Subjective Subjective: Pt seen and examined at bedside. Pt states he is having left-sided rib pain today, worst with inspiration. Pt received one dose of ativan overnight, but has since been stopped due to prior lethargy. Denies CP, SOB, N/V/D. Objective - Vital Signs/Intake and Output Vital Signs (last 24 hours): Temp Pulse Resp BP Pulse Ox 98 F 93 H 20 108/70 94 L 08/21/16 08:11 08/21/16 08:11 08/21/16 08:11 08/21/16 08:11 08/21/16 08:11 Intake and Output: 08/21/16 08/21/16 06:59 18:59 Intake Total 540 Output Total 500 Balance 40 - Medications Medications: Current Medications Acetaminophen (Tylenol 325mg Tab) 650 mg PO Q4H PRN PRN Reason: Pain, moderate (4-7) Famotidine (Pepcid) 20 mg PO 1000,2200 [facility] Last Admin: 08/21/16 10:35 Dose: 20 mg Folic Acid (Folic Acid) 1 mg PO DAILY [facility] Last Admin: 08/21/16 10:34 Dose: 1 mg Multivitamins (Thera Tab) 1 tab PO DAILY [facility] Last Admin: 08/21/16 10:35 Dose: 1 tab Ondansetron HCl (Zofran Inj) 4 mg IVP Q6H PRN PRN Reason: Nausea/Vomiting Thiamine HCl (Vitamin B1 Tab) 100 mg PO DAILY [facility] Last Admin: 08/21/16 10:35 Dose: 100 mg - Labs Labs: 08/21/16 05:30 08/21/16 05:30 PT 10.0 Seconds (9.9-11.8) 08/17/16 10:45 INR 0.93 (0.93-1.08) 08/17/16 10:45 APTT 30.5 Seconds (23.7-30.8) 08/17/16 10:45 - Constitutional Appears: Non-toxic, No Acute Distress - Head Exam Head Exam: ATRAUMATIC, NORMAL INSPECTION, NORMOCEPHALIC - Eye Exam Eye Exam: absent: Periorbital swelling, Periorbital tenderness Additional comments: Right periorbital trace edema - ENT Exam ENT Exam: Mucous Membranes Moist, Normal Exam - Respiratory Exam Respiratory Exam: Clear to Ausculation Bilateral, NORMAL BREATHING PATTERN. absent: Rhonchi, Wheezes - Cardiovascular Exam Cardiovascular Exam: RRR, +S1, +S2 Additional comments: Left lower ribs tender to palpation - GI/Abdominal Exam GI & Abdominal Exam: Soft, Normal Bowel Sounds. absent: Tenderness - Extremities Exam Extremities Exam: Normal Inspection. absent: Calf Tenderness, Pedal Edema - Neurological Exam Neurological Exam: Alert, Awake, Oriented x3 - Psychiatric Exam Psychiatric exam: Normal Affect, Normal Mood - Skin Skin Exam: Normal Color, Warm Additional comments: Stage 2 ulcerations on lower back and right buttocks. Assessment and Plan - Assessment and Plan (Free Text) Plan: 65 y/o M with PMH of depression, anxiety, hypertension, hepatomegaly, chronic ETOH abuse that presents for alcohol intoxication s/p fall. Head CT negative after fall. Pt has been taken off all sedative medication. Pt will undergo left rib x-ray after complaining of pain today. Pt denied physical therapy today. 1. Alcohol withdrawal - Resolved, at baseline - No ativan or librium at this time - Monitor for worsening 2. Thrombocytopenia - Resolved - Continue to monitor 3. PPX - Pepcid - SCDs Seen, reviewed, and discussed with attending. Luis Felipe, PGY-1 <Christy GOYAL,Lauren - Last Filed: 08/21/16 17:01> Objective - Vital Signs/Intake and Output Vital Signs (last 24 hours): Temp Pulse Resp BP Pulse Ox 97.3 F L 98 H 20 97/71 L 97 08/21/16 16:00 08/21/16 16:00 08/21/16 16:00 08/21/16 16:00 08/21/16 16:00 Intake and Output: 08/21/16 08/21/16 06:59 18:59 Intake Total 540 Output Total 500 Balance 40 - Medications Medications: Current Medications Acetaminophen (Tylenol 325mg Tab) 650 mg PO Q4H PRN PRN Reason: Pain, moderate (4-7) Famotidine (Pepcid) 20 mg PO 1000,2200 [facility] Last Admin: 08/21/16 10:35 Dose: 20 mg Folic Acid (Folic Acid) 1 mg PO DAILY [facility] Last Admin: 08/21/16 10:34 Dose: 1 mg Multivitamins (Thera Tab) 1 tab PO DAILY [facility] Last Admin: 08/21/16 10:35 Dose: 1 tab Ondansetron HCl (Zofran Inj) 4 mg IVP Q6H PRN PRN Reason: Nausea/Vomiting Thiamine HCl (Vitamin B1 Tab) 100 mg PO DAILY [facility] Last Admin: 08/21/16 10:35 Dose: 100 mg - Labs Labs: 08/21/16 05:30 08/21/16 05:30 PT 10.0 Seconds (9.9-11.8) 08/17/16 10:45 INR 0.93 (0.93-1.08) 08/17/16 10:45 APTT 30.5 Seconds (23.7-30.8) 08/17/16 10:45 Attending/Attestation - Attestation I have personally seen and examined this patient.: Yes I have fully participated in the care of the patient.: Yes I have reviewed all pertinent clinical information, including history, physical exam and plan: Yes
[2016-08-22 07:23] LABS: HEMATOCRIT 31.5 % (42.0-52.0); MEAN CELL VOLUME 93.5 fL (80.0-105.0); MEAN CORPUSCULAR HEMOGLOBIN 31.2 pg (25.0-35.0); MEAN CORPUSCULAR HGB CONC 33.3 g/dl (31.0-37.0); MEAN PLATELET VOLUME 9.9 fl (7.0-11.0); RED CELL DISTRIBUTION WIDTH 17.5 % (11.5-14.5); WHITE BLOOD COUNT 4.9 10^3/ul (4.5-11.0)
[2016-08-22 07:25] LABS: ALB/GLOB RATIO 1.1 (1.1-1.8); ALKALINE PHOSPHATASE 70 U/L (38-133); ALT/SGPT 40 U/L (7-56); AST/SGOT 44 U/L (15-59); BILIRUBIN,TOTAL 0.7 mg/dL (0.2-1.3); BLOOD UREA NITROGEN 18 mg/dL (7-21); CALCIUM 8.9 mg/dL (8.4-10.5); CARBON DIOXIDE 29 mmol/L (21-33); CHLORIDE 98 mmol/L (98-107); GFR AFRICAN-AMERICAN > 60; GLUCOSE,RANDOM 96 mg/dL (70-110); POTASSIUM 3.9 mmol/L (3.6-5.0); SODIUM 133 mmol/L (132-148); TOTAL PROTEIN 6.7 g/dL (5.8-8.3)
[2016-08-22] MEDS: Multivitamin Therapeutic Tab PO SCH (09:22)
--- NOTE | 2016-08-22 16:02 | CP.PCM.PN ---
<Mann Briscoe - Last Filed: 08/22/16 16:25> Subjective - Date & Time of Evaluation Date of Evaluation: 08/22/16 Time of Evaluation: 15:59 - Subjective Subjective: Pt seen and examined at bedside. Pt states he is having pain on the left side of his ribs. Pt received tylenol overnight for his pain. Pt denies SOB, fever, chills, diarrhea, vomiting. Objective - Vital Signs/Intake and Output Vital Signs (last 24 hours): Temp Pulse Resp BP Pulse Ox 97.8 F 83 20 103/69 98 08/22/16 07:30 08/22/16 07:30 08/22/16 07:30 08/22/16 07:30 08/22/16 07:30 Intake and Output: 08/22/16 08/22/16 06:59 18:59 Intake Total 960 1420 Output Total 400 900 Balance 560 520 - Medications Medications: Current Medications Famotidine (Pepcid) 20 mg PO 1000,2200 [facility] Last Admin: 08/22/16 09:22 Dose: 20 mg Folic Acid (Folic Acid) 1 mg PO DAILY [facility] Last Admin: 08/22/16 09:21 Dose: 1 mg Ibuprofen (Motrin Tab) 400 mg PO Q6H PRN PRN Reason: Pain, moderate (4-7) Last Admin: 08/22/16 15:27 Dose: 400 mg Lorazepam (Ativan) 0.5 mg PO Q8H PRN; Protocol PRN Reason: Agitation Multivitamins (Thera Tab) 1 tab PO DAILY [facility] Last Admin: 08/22/16 09:22 Dose: 1 tab Ondansetron HCl (Zofran Tab) 4 mg PO Q8H PRN PRN Reason: Nausea/Vomiting Last Admin: 08/22/16 10:39 Dose: 4 mg Thiamine HCl (Vitamin B1 Tab) 100 mg PO DAILY [facility] Last Admin: 08/22/16 09:22 Dose: 100 mg - Labs Labs: 08/22/16 06:15 08/22/16 06:15 PT 10.0 Seconds (9.9-11.8) 08/17/16 10:45 INR 0.93 (0.93-1.08) 08/17/16 10:45 APTT 30.5 Seconds (23.7-30.8) 08/17/16 10:45 - Constitutional Appears: Non-toxic, No Acute Distress - Head Exam Head Exam: NORMOCEPHALIC - Eye Exam Eye Exam: EOMI, Periorbital swelling (Improving), Periorbital tenderness - Respiratory Exam Respiratory Exam: Clear to Ausculation Bilateral, NORMAL BREATHING PATTERN. absent: Rales, Rhonchi, Wheezes - Cardiovascular Exam Cardiovascular Exam: RRR, +S1, +S2 Additional comments: Pain on palpation of left lower ribs at midaxillary line. - GI/Abdominal Exam GI & Abdominal Exam: Soft, Normal Bowel Sounds. absent: Tenderness - Extremities Exam Extremities Exam: Normal Inspection. absent: Calf Tenderness, Pedal Edema - Neurological Exam Neurological Exam: Alert, Awake, Oriented x3 Additional comments: Tremulous, more than previous day - Psychiatric Exam Psychiatric exam: Normal Affect, Normal Mood - Skin Skin Exam: Intact, Normal Color, Warm Assessment and Plan - Assessment and Plan (Free Text) Plan: 65 y/o M with PMH of depression, anxiety, hypertension, hepatomegaly, chronic ETOH abuse that presents for alcohol intoxication s/p fall. Head CT negative. Pt anxious and tremulous earlier today, ativan 0.5 mg q8h added. Pt refusing physical therapy and rib xrays. Will get case management to aid in discharge planning as pt is homeless. Will also get psychiatry eval as pt is displaying increased level of anxiety. 1. Alcohol withdrawal - Tremulous today - Ativan regimen added, will not give too much to sedate pt further - Monitor for worsening symptoms 2. Anxiety - Ativan will help with restlessness and anxiety - Psych consulted - Monitor for worsening of symptoms. 3. PPX - Pepcid - SCDs Seen, reviewed, and discussed with attending. Luis Felipe, PGY-1 <Christy GOYAL,Lauren - Last Filed: 08/22/16 16:42> Objective - Vital Signs/Intake and Output Vital Signs (last 24 hours): Temp Pulse Resp BP Pulse Ox 97.8 F 83 20 103/69 98 08/22/16 07:30 08/22/16 07:30 08/22/16 07:30 08/22/16 07:30 08/22/16 07:30 Intake and Output: 08/22/16 08/22/16 06:59 18:59 Intake Total 960 1420 Output Total 400 900 Balance 560 520 - Medications Medications: Current Medications Famotidine (Pepcid) 20 mg PO 1000,2200 [facility] Last Admin: 08/22/16 09:22 Dose: 20 mg Folic Acid (Folic Acid) 1 mg PO DAILY [facility] Last Admin: 08/22/16 09:21 Dose: 1 mg Ibuprofen (Motrin Tab) 400 mg PO Q6H PRN PRN Reason: Pain, moderate (4-7) Last Admin: 08/22/16 15:27 Dose: 400 mg Lorazepam (Ativan) 0.5 mg PO Q8H PRN; Protocol PRN Reason: Agitation Multivitamins (Thera Tab) 1 tab PO DAILY [facility] Last Admin: 08/22/16 09:22 Dose: 1 tab Ondansetron HCl (Zofran Tab) 4 mg PO Q8H PRN PRN Reason: Nausea/Vomiting Last Admin: 08/22/16 10:39 Dose: 4 mg Thiamine HCl (Vitamin B1 Tab) 100 mg PO DAILY [facility] Last Admin: 08/22/16 09:22 Dose: 100 mg - Labs Labs: 08/22/16 06:15 08/22/16 06:15 PT 10.0 Seconds (9.9-11.8) 08/17/16 10:45 INR 0.93 (0.93-1.08) 08/17/16 10:45 APTT 30.5 Seconds (23.7-30.8) 08/17/16 10:45 Attending/Attestation - Attestation I have personally seen and examined this patient.: Yes I have fully participated in the care of the patient.: Yes I have reviewed all pertinent clinical information, including history, physical exam and plan: Yes Notes (Text): Patient was seen and examined with medical office assistant .Agreed with resident assessment and plan. Patient is having intermittent agitation, no sign of alcohol withdrawal, likely have severe anxiety, also seem depressed, not suicidal, we will get Psychiatry evaluation.
--- NOTE | 2016-08-22 22:39 | CP.PCM.PN ---
Subjective - Date & Time of Evaluation Date of Evaluation: 08/22/16 Time of Evaluation: 22:39 - Subjective Subjective: # 24 angiocath was inserted in right hand dorsum with difficulty. Dx:Poor venous access. Objective - Vital Signs/Intake and Output Vital Signs (last 24 hours): Temp Pulse Resp BP Pulse Ox 97.7 F 86 18 116/78 96 08/22/16 16:00 08/22/16 16:00 08/22/16 16:00 08/22/16 16:00 08/22/16 16:00 Intake and Output: 08/22/16 08/23/16 18:59 06:59 Intake Total 1420 1600 Output Total 900 1200 Balance 520 400 - Medications Medications: Current Medications Famotidine (Pepcid) 20 mg PO 1000,2200 [facility] Last Admin: 08/22/16 09:22 Dose: 20 mg Folic Acid (Folic Acid) 1 mg PO DAILY [facility] Last Admin: 08/22/16 09:21 Dose: 1 mg Ibuprofen (Motrin Tab) 400 mg PO Q6H PRN PRN Reason: Pain, moderate (4-7) Last Admin: 08/22/16 21:25 Dose: 400 mg Lorazepam (Ativan) 1 mg IVP Q4H PRN; Protocol PRN Reason: Anxiety Last Admin: 08/22/16 21:55 Dose: 1 mg Multivitamins (Thera Tab) 1 tab PO DAILY [facility] Last Admin: 08/22/16 09:22 Dose: 1 tab Ondansetron HCl (Zofran Tab) 4 mg PO Q8H PRN PRN Reason: Nausea/Vomiting Last Admin: 08/22/16 20:21 Dose: 4 mg Thiamine HCl (Vitamin B1 Tab) 100 mg PO DAILY [facility] Last Admin: 08/22/16 09:22 Dose: 100 mg - Labs Labs: 08/22/16 06:15 08/22/16 06:15 PT 10.0 Seconds (9.9-11.8) 08/17/16 10:45 INR 0.93 (0.93-1.08) 08/17/16 10:45 APTT 30.5 Seconds (23.7-30.8) 08/17/16 10:45
[2016-08-23] MEDS: Multivitamin Therapeutic Tab PO SCH (11:21)
--- NOTE | 2016-08-23 15:36 | CON ---
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 The patient also has history of delirium tremens. The patient was admitted on the medical floor status post fall. Psych consult was called for evaluation of anxi ety and alcohol withdrawal symptoms. The patient is very familiar to this data analyst report writer from the previous a dmissions on the medical floor as a plan consultant and psychiatric inpatient unit for depressive symptoms . The patient remembered this data analyst report writer by name, knows that he is in the hospital. Besides that, the p atient was not willing to have interview. The patient was staring at this data analyst report writer, vague glance. The patient denied thoughts of harming himself or others, denied intent or plan. VITAL SIGNS: Stable, temperature 97.7, pulse is 83, respirations 18, oxygen saturation is 97, blood pressure 97/60. MEDICATIONS: Reviewed. The patient is on Pepcid, folic acid, Motrin, multivitamins, Zofran, vitamin B1 and Geodon 10 mg q. 8 hours as needed will be given by this data analyst report writer. PAST PSYCHIATRIC HISTORY: The patient has history of depressive symptoms, history of depressive diso rder, history of suicidal attempts which are mostly related to alcohol withdrawal symptoms. The nasreen ent was admitted to the psychiatric inpatient unit, most recently more than a year and a half ago for depression. This data analyst report writer is not sure was he followed up with his outpatient provider or not. The eugene portillo has multiple ER visits and medical floor admissions for alcohol withdrawal symptoms. Medical t earonald did not call for consult in the past, most likely because patient was doing fine. LABORATORY DATA: Reviewed. Hemoglobin and hematocrit are 10.5 and 31.5. Coagulation reviewed. Ethel sobeida reviewed, seems within normal limits. Urinalysis seems to be within normal limits with protei n improving. Toxicology: Benzodiazepines were positive and alcohol 190 at the time of admission. MENTAL STATUS EXAMINATION: The patient appears to be alert. Poor personal hygiene, had hematoma und er his right eye. The patient did not look well, sick looking, seems to have lost a lot of weight. Fair eye contact. Speech was under-productive. Mood described "I'm fine, but anxious." Affect was constricted. Thought process was circumstantial. Thought content: The patient denied thoughts of h arming himself or others, denied intent or plan. Insight and judgment are very limited to the addict ion problems. The patient denied thoughts of harming himself or others. IMPRESSION: The patient has long history of alcohol use disorder, rule out alcohol withdrawal deli rium. The patient has history of mood disorder which is related to alcohol addiction and withdrawal. The patient has multiple medical issues. Please see medical team notes for more detailed informati on. PLAN: Continue current management. Multivitamins, thiamine and folic acid were started medical team . For agitation, Geodon could be given 10 mg q. 8 hours. The patient needs to be evaluated by socia l services in order to get into the rehab. The patient has long and debilitating history of opioid a ddiction. Family involvement. We will follow up and advise accordingly. Thank you very much for letting me to participate in the care of your patient. Should you have any q uestions, give me a call back. In regards of treatment of withdrawal symptoms, the patient was admit marc on 08/17 and today is 08/23. For the past 6 days, vital signs are within normal limits. Withdrawal symptoms are least likely. Viral signs are stable. The patient has fine tremor in upper extremities with episodes of confusion which could be related to alcohol withdrawal delirium as well as delirium due to general medical condition. Dr. Major will follow up on this patient over the weekend. Shoul d you have any questions, give me a call back. Emmie Cardona MD cc: [id number] TT: 08/23/2016 15:35:31 Confirmation # [id number] Dictation # [id number] tn
--- NOTE | 2016-08-23 15:41 | CP.PCM.PN ---
<Mann Briscoe - Last Filed: 08/23/16 15:38> Subjective - Date & Time of Evaluation Date of Evaluation: 08/23/16 Time of Evaluation: 15:38 - Subjective Subjective: Pt seen and examined at bedside. Pt doing very well overnight with no agitation. Pt with no complaints at this time except for stomach pain that he chronically has. Pt denies CP, SOB, N/V/D, fevers, chills. Objective - Vital Signs/Intake and Output Vital Signs (last 24 hours): Temp Pulse Resp BP Pulse Ox 97.7 F 83 18 97/60 L 97 08/23/16 07:30 08/23/16 07:30 08/23/16 07:30 08/23/16 07:30 08/23/16 07:30 Intake and Output: 08/23/16 08/23/16 06:59 18:59 Intake Total 1600 Output Total 1200 Balance 400 - Medications Medications: Current Medications Famotidine (Pepcid) 20 mg PO 1000,2200 [facility] Last Admin: 08/23/16 11:22 Dose: 20 mg Folic Acid (Folic Acid) 1 mg PO DAILY [facility] Last Admin: 08/23/16 11:21 Dose: 1 mg Ibuprofen (Motrin Tab) 400 mg PO Q6H PRN PRN Reason: Pain, moderate (4-7) Last Admin: 08/23/16 11:21 Dose: 400 mg Multivitamins (Thera Tab) 1 tab PO DAILY [facility] Last Admin: 08/23/16 11:21 Dose: 1 tab Ondansetron HCl (Zofran Tab) 4 mg PO Q8H PRN PRN Reason: Nausea/Vomiting Last Admin: 08/22/16 20:21 Dose: 4 mg Thiamine HCl (Vitamin B1 Tab) 100 mg PO DAILY [facility] Last Admin: 08/23/16 11:21 Dose: 100 mg Ziprasidone (Geodon Inj) 10 mg IM Q8H PRN; Protocol PRN Reason: agitation/psychosis - Labs Labs: 08/22/16 06:15 08/22/16 06:15 PT 10.0 Seconds (9.9-11.8) 08/17/16 10:45 INR 0.93 (0.93-1.08) 08/17/16 10:45 APTT 30.5 Seconds (23.7-30.8) 08/17/16 10:45 - Constitutional Appears: Well, No Acute Distress - Head Exam Head Exam: ATRAUMATIC, NORMAL INSPECTION, NORMOCEPHALIC - Respiratory Exam Respiratory Exam: Clear to Ausculation Bilateral, NORMAL BREATHING PATTERN. absent: Rhonchi, Wheezes - Cardiovascular Exam Cardiovascular Exam: RRR, +S1, +S2 - GI/Abdominal Exam GI & Abdominal Exam: Soft, Tenderness (Epigastric), Normal Bowel Sounds - Extremities Exam Extremities Exam: Normal Inspection. absent: Calf Tenderness, Pedal Edema - Neurological Exam Neurological Exam: Alert, Awake, Oriented x3 Additional comments: Baseline tremor - Psychiatric Exam Psychiatric exam: Normal Affect, Normal Mood - Skin Skin Exam: Intact, Normal Color, Warm Assessment and Plan - Assessment and Plan (Free Text) Plan: 65 y/o M with PMH of depression, anxiety, hypertension, hepatomegaly, chronic ETOH abuse that presents for alcohol intoxication s/p fall. Pt will be discharged tomorrow morning. Pt will have all ativan stopped at this time. Psych has seen patient and added Geodon as needed for restlessness and agitation. 1. Alcohol withdrawal - No ativan or librium at this time - Monitor for worsening symptoms 2. Anxiety - Psych consulted, recommends geodon for agitation - Monitor for worsening of symptoms. 3. PPX - Pepcid - SCDs Seen, reviewed, and discussed with attending. Luis Felipe, PGY-1 <Christy GOYAL,Lauren - Last Filed: 08/23/16 16:51> Objective - Vital Signs/Intake and Output Vital Signs (last 24 hours): Temp Pulse Resp BP Pulse Ox 97.6 F 96 H 20 100/61 97 08/23/16 16:00 08/23/16 16:00 08/23/16 16:00 08/23/16 16:00 08/23/16 16:00 Intake and Output: 08/23/16 08/23/16 06:59 18:59 Intake Total 1600 Output Total 1200 Balance 400 - Medications Medications: Current Medications Famotidine (Pepcid) 20 mg PO 1000,2200 [facility] Last Admin: 08/23/16 11:22 Dose: 20 mg Folic Acid (Folic Acid) 1 mg PO DAILY [facility] Last Admin: 08/23/16 11:21 Dose: 1 mg Ibuprofen (Motrin Tab) 400 mg PO Q6H PRN PRN Reason: Pain, moderate (4-7) Last Admin: 08/23/16 11:21 Dose: 400 mg Multivitamins (Thera Tab) 1 tab PO DAILY [facility] Last Admin: 08/23/16 11:21 Dose: 1 tab Ondansetron HCl (Zofran Tab) 4 mg PO Q8H PRN PRN Reason: Nausea/Vomiting Last Admin: 08/22/16 20:21 Dose: 4 mg Thiamine HCl (Vitamin B1 Tab) 100 mg PO DAILY [facility] Last Admin: 08/23/16 11:21 Dose: 100 mg Ziprasidone (Geodon Inj) 10 mg IM Q8H PRN; Protocol PRN Reason: agitation/psychosis - Labs Labs: 08/22/16 06:15 08/22/16 06:15 PT 10.0 Seconds (9.9-11.8) 08/17/16 10:45 INR 0.93 (0.93-1.08) 08/17/16 10:45 APTT 30.5 Seconds (23.7-30.8) 08/17/16 10:45 Attending/Attestation - Attestation I have personally seen and examined this patient.: Yes I have fully participated in the care of the patient.: Yes I have reviewed all pertinent clinical information, including history, physical exam and plan: Yes Notes (Text): Patient was seen and examined with medical clinic manager .Agreed with resident assessment and plan. 65 yrs old male with PMH of depression, anxiety, hypertension, chronic ETOH abuse was admitted with fall and alcohol withdrawal.He is not in any alcohol withdrawal today.He is ambulatory.He will be discharged home today. The issue of ongoing alcohol abuse was discussed in detail with patient. Management plan was discussed in detail with patient Education was provided.
--- NOTE | 2016-08-23 16:34 | CP.PCM.DIS ---
<Mann Briscoe - Last Filed: 08/23/16 18:17> Provider - Provider Date of Admission: 08/17/16 17:32 Attending physician: Brenda Hernandez MD Primary care physician: NO PRIMARY CARE PROVIDER Consults: Psych - Dr. Olea Time Spent in preparation of Discharge (in minutes): 45 Diagnosis - Discharge Diagnosis (1) Alcohol withdrawal Status: Acute Priority: Low (2) Abdominal pain Status: Chronic Priority: Medium (3) Alcohol abuse Status: Chronic Priority: Medium (4) Alcohol intoxication Status: Chronic Priority: Medium (5) Anxiety and depression Status: Chronic Priority: Medium (6) Head injury Status: Acute Hospital Course - Lab Results Lab Results: Most Recent Lab Values WBC 4.9 10^3/ul (4.5-11.0) D 08/22/16 06:15 RBC 3.37 10^6/uL (3.5-6.1) L 08/22/16 06:15 Hgb 10.5 gm/dL (14.0-18.0) L 08/22/16 06:15 Hct 31.5 % (42.0-52.0) L 08/22/16 06:15 MCV 93.5 fL (80.0-105.0) 08/22/16 06:15 MCH 31.2 pg (25.0-35.0) 08/22/16 06:15 MCHC 33.3 g/dl (31.0-37.0) 08/22/16 06:15 RDW 17.5 % (11.5-14.5) H 08/22/16 06:15 Plt Count 209 10^3/uL (120.0-450.0) 08/22/16 06:15 MPV 9.9 fl (7.0-11.0) 08/22/16 06:15 Gran % 84.1 % (50.0-68.0) H 08/18/16 06:51 Lymph % (Auto) 10.1 % (22.0-35.0) L 08/18/16 06:51 [place] % (Auto) 5.8 % (1.0-6.0) 08/18/16 06:51 Eos % (Auto) 0.0 % (1.5-5.0) L 08/18/16 06:51 Baso % (Auto) 0.0 % (0.0-3.0) 08/18/16 06:51 Gran # 9.30 (1.4-6.5) H 08/18/16 06:51 Lymph # 1.1 (1.2-3.4) L 08/18/16 06:51 [place] # 0.6 (0.1-0.6) 08/18/16 06:51 Eos # 0.0 (0.0-0.7) 08/18/16 06:51 Baso # 0.00 K/mm3 (0.0-2.0) 08/18/16 06:51 PT 10.0 Seconds (9.9-11.8) 08/17/16 10:45 INR 0.93 (0.93-1.08) 08/17/16 10:45 APTT 30.5 Seconds (23.7-30.8) 08/17/16 10:45 pCO2 35 mm/Hg (35-45) 08/20/16 12:00 pO2 93.0 mm/Hg (80-100) 08/20/16 12:00 HCO3 27.3 mmol/L (21-28) 08/20/16 12:00 ABG pH 7.50 (7.35-7.45) H 08/20/16 12:00 ABG Total CO2 28.4 mmol.L (22-28) H 08/20/16 12:00 ABG O2 Saturation 98.9 % (95-98) H 08/20/16 12:00 ABG O2 Content 14.2 ML/dl (15-23) L 08/20/16 12:00 ABG Base Excess 4.1 mmol/L (-2.0-3.0) H 08/20/16 12:00 ABG Hemoglobin 10.5 g/dL (11.7-17.4) L 08/20/16 12:00 ABG Carboxyhemoglobin 2.5 % (0.5-1.5) H 08/20/16 12:00 POC ABG HHb (Measured) 1.1 % (0-5) 08/20/16 12:00 ABG Methemoglobin 1.3 % (0.0-3.0) 08/20/16 12:00 ABG O2 Capacity 14.4 mL/dl (16-24) L 08/20/16 12:00 Hgb O2 Saturation 95.1 % (95.0-98.0) 08/20/16 12:00 FiO2 21.0 % 08/20/16 12:00 Sodium 133 mmol/L (132-148) 08/22/16 06:15 Potassium 3.9 mmol/L (3.6-5.0) 08/22/16 06:15 Chloride 98 mmol/L (98-107) 08/22/16 06:15 Carbon Dioxide 29 mmol/L (21-33) 08/22/16 06:15 Anion Gap 10 (10-20) 08/22/16 06:15 BUN 18 mg/dL (7-21) 08/22/16 06:15 Creatinine 0.7 mg/dL (0.5-1.4) 08/22/16 06:15 Est GFR ( Amer) > 60 08/22/16 06:15 Est GFR (Non-Af Amer) > 60 08/22/16 06:15 POC Glucose (mg/dL) 69 mg/dL (65-110) 08/17/16 09:54 Random Glucose 96 mg/dL (70-110) 08/22/16 06:15 Calcium 8.9 mg/dL (8.4-10.5) 08/22/16 06:15 Phosphorus 2.6 mg/dL (2.5-4.5) 08/18/16 06:51 Magnesium 1.7 mg/dL (1.7-2.2) 08/19/16 05:30 Total Bilirubin 0.7 mg/dL (0.2-1.3) 08/22/16 06:15 AST 44 U/L (15-59) 08/22/16 06:15 ALT 40 U/L (7-56) 08/22/16 06:15 Alkaline Phosphatase 70 U/L (38-133) 08/22/16 06:15 Lactate Dehydrogenase 801 U/L (333-699) H 08/17/16 10:45 Total Creatine Kinase 179 U/L (35-230) 08/17/16 10:45 Troponin I < 0.01 ng/mL 08/17/16 10:45 Total Protein 6.7 g/dL (5.8-8.3) 08/22/16 06:15 Albumin 3.5 g/dL (3.0-4.8) 08/22/16 06:15 Globulin 3.2 gm/dL 08/22/16 06:15 Albumin/Globulin Ratio 1.1 (1.1-1.8) 08/22/16 06:15 Lipase 290 U/L (23-300) 08/17/16 10:45 Urine Color Yellow (YELLOW) 08/17/16 19:40 Urine Appearance Sl cloudy (CLEAR) 08/17/16 19:40 Urine pH 6.0 (4.7-8.0) 08/17/16 19:40 Ur Specific [place] 1.025 (1.005-1.035) 08/17/16 19:40 Urine Protein 100 mg/dL (<30 mg/dL) H 08/17/16 19:40 Urine Glucose (UA) Negative mg/dL (NEGATIVE) 08/17/16 19:40 Urine Ketones 40 mg/dL (NEGATIVE) H 08/17/16 19:40 Urine Blood Negative (NEGATIVE) 08/17/16 19:40 Urine Nitrate Negative (NEGATIVE) 08/17/16 19:40 Urine Bilirubin Negative (NEGATIVE) 08/17/16 19:40 Urine Urobilinogen 1.0 E.U./dL (<1 E.U./dL) H 08/17/16 19:40 Ur Leukocyte Esterase Negative Gely/uL (NEGATIVE) 08/17/16 19:40 Urine RBC Negative /hpf (0-2) 08/17/16 19:40 Urine WBC 0 - 2 /hpf (0-6) 08/17/16 19:40 Urine Other Mucus 08/17/16 19:40 Urine Opiates Screen Negative (NEGATIVE) 08/17/16 19:40 Urine Methadone Screen Negative (NEGATIVE) 08/17/16 19:40 Ur Barbiturates Screen Negative (NEGATIVE) 08/17/16 19:40 Ur Phencyclidine Scrn Negative (NEGATIVE) 08/17/16 19:40 Ur Amphetamines Screen Negative (NEGATIVE) 08/17/16 19:40 U Benzodiazepines Scrn Positive (NEGATIVE) H 08/17/16 19:40 U Oth Cocaine Metabols Negative (NEGATIVE) 08/17/16 19:40 U Cannabinoids Screen Negative (NEGATIVE) 08/17/16 19:40 Alcohol, Quantitative 190 mg/dL (0-10) H 08/17/16 10:45 - Hospital Course Hospital Course: 65 y/o Male with PMH of depression, anxiety, hypertension, hepatomegaly, chronic ETOH abuse presented to the hospital s/p fall after alcohol intoxication. Pt was brought to the ED. Pt was found to have hematoma on the right side of his face and eye. Pt received Head CT which showed no acute bleed. Pt was admitted for alcohol withdrawal and intoxication. Pt was placed on ativan and librium, then tapered accordingly. Pt began to have slight agitation towards the end of tapering. Pt was seen by Dr. Olea and placed on [place] prn. Pt will be sent home and was given counseling on alcohol abstinence. Discharge Exam - Head Exam Head Exam: ATRAUMATIC, NORMAL INSPECTION, NORMOCEPHALIC - ENT Exam ENT Exam: Mucous Membranes Moist, Normal Exam - Respiratory Exam Respiratory Exam: NORMAL BREATHING PATTERN, UNREMARKABLE - Cardiovascular Exam Cardiovascular Exam: RRR, +S1, +S2 - GI/Abdominal Exam GI & Abdominal Exam: Normal Bowel Sounds, Soft, Tenderness (Epigastric) - Extremities Exam Extremities exam: normal inspection - Neurological Exam Neurological exam: Alert, Oriented x3 - Psychiatric Exam Psychiatric exam: Normal Affect, Normal Mood - Skin Skin Exam: Intact, Normal Color, Warm Discharge Plan - Discharge Medications Prescriptions: Folic Acid 1 mg PO DAILY #7 tab Famotidine [Pepcid] 20 mg PO 1000,2200 #14 tab Multivitamin Therapeutic Tab [Thera Tab] 1 tab PO DAILY #7 tab Thiamine [Vitamin B1 Tab] 100 mg PO DAILY #7 tab - Follow Up Plan Condition: FAIR Disposition: HOME/ ROUTINE Instructions: Generalized Anxiety Disorder (DC), Abuse of Alcohol (DC), Alcohol Withdrawal (DC), Alcohol Use Disorder (DC) Additional Instructions: Alcohol abstinence Follow up with PMD within 1 week If symptoms worsen, please return to hospital for further treatment Referrals: PCP,NO [Primary Care Provider] - <Christy GOYAL,Lauren - Last Filed: 08/25/16 11:51> Provider - Provider Date of Admission: 08/17/16 17:32 Attending physician: Brenda Hernandez MD Primary care physician: NO PRIMARY CARE PROVIDER Hospital Course - Lab Results Lab Results: Most Recent Lab Values WBC 4.9 10^3/ul (4.5-11.0) D 08/22/16 06:15 RBC 3.37 10^6/uL (3.5-6.1) L 08/22/16 06:15 Hgb 10.5 gm/dL (14.0-18.0) L 08/22/16 06:15 Hct 31.5 % (42.0-52.0) L 08/22/16 06:15 MCV 93.5 fL (80.0-105.0) 08/22/16 06:15 MCH 31.2 pg (25.0-35.0) 08/22/16 06:15 MCHC 33.3 g/dl (31.0-37.0) 08/22/16 06:15 RDW 17.5 % (11.5-14.5) H 08/22/16 06:15 Plt Count 209 10^3/uL (120.0-450.0) 08/22/16 06:15 MPV 9.9 fl (7.0-11.0) 08/22/16 06:15 Gran % 84.1 % (50.0-68.0) H 08/18/16 06:51 Lymph % (Auto) 10.1 % (22.0-35.0) L 08/18/16 06:51 [place] % (Auto) 5.8 % (1.0-6.0) 08/18/16 06:51 Eos % (Auto) 0.0 % (1.5-5.0) L 08/18/16 06:51 Baso % (Auto) 0.0 % (0.0-3.0) 08/18/16 06:51 Gran # 9.30 (1.4-6.5) H 08/18/16 06:51 Lymph # 1.1 (1.2-3.4) L 08/18/16 06:51 [place] # 0.6 (0.1-0.6) 08/18/16 06:51 Eos # 0.0 (0.0-0.7) 08/18/16 06:51 Baso # 0.00 K/mm3 (0.0-2.0) 08/18/16 06:51 PT 10.0 Seconds (9.9-11.8) 08/17/16 10:45 INR 0.93 (0.93-1.08) 08/17/16 10:45 APTT 30.5 Seconds (23.7-30.8) 08/17/16 10:45 pCO2 35 mm/Hg (35-45) 08/20/16 12:00 pO2 93.0 mm/Hg (80-100) 08/20/16 12:00 HCO3 27.3 mmol/L (21-28) 08/20/16 12:00 ABG pH 7.50 (7.35-7.45) H 08/20/16 12:00 ABG Total CO2 28.4 mmol.L (22-28) H 08/20/16 12:00 ABG O2 Saturation 98.9 % (95-98) H 08/20/16 12:00 ABG O2 Content 14.2 ML/dl (15-23) L 08/20/16 12:00 ABG Base Excess 4.1 mmol/L (-2.0-3.0) H 08/20/16 12:00 ABG Hemoglobin 10.5 g/dL (11.7-17.4) L 08/20/16 12:00 ABG Carboxyhemoglobin 2.5 % (0.5-1.5) H 08/20/16 12:00 POC ABG HHb (Measured) 1.1 % (0-5) 08/20/16 12:00 ABG Methemoglobin 1.3 % (0.0-3.0) 08/20/16 12:00 ABG O2 Capacity 14.4 mL/dl (16-24) L 08/20/16 12:00 Hgb O2 Saturation 95.1 % (95.0-98.0) 08/20/16 12:00 FiO2 21.0 % 08/20/16 12:00 Sodium 133 mmol/L (132-148) 08/22/16 06:15 Potassium 3.9 mmol/L (3.6-5.0) 08/22/16 06:15 Chloride 98 mmol/L (98-107) 08/22/16 06:15 Carbon Dioxide 29 mmol/L (21-33) 08/22/16 06:15 Anion Gap 10 (10-20) 08/22/16 06:15 BUN 18 mg/dL (7-21) 08/22/16 06:15 Creatinine 0.7 mg/dL (0.5-1.4) 08/22/16 06:15 Est GFR ( Amer) > 60 08/22/16 06:15 Est GFR (Non-Af Amer) > 60 08/22/16 06:15 POC Glucose (mg/dL) 69 mg/dL (65-110) 08/17/16 09:54 Random Glucose 96 mg/dL (70-110) 08/22/16 06:15 Calcium 8.9 mg/dL (8.4-10.5) 08/22/16 06:15 Phosphorus 2.6 mg/dL (2.5-4.5) 08/18/16 06:51 Magnesium 1.7 mg/dL (1.7-2.2) 08/19/16 05:30 Total Bilirubin 0.7 mg/dL (0.2-1.3) 08/22/16 06:15 AST 44 U/L (15-59) 08/22/16 06:15 ALT 40 U/L (7-56) 08/22/16 06:15 Alkaline Phosphatase 70 U/L (38-133) 08/22/16 06:15 Lactate Dehydrogenase 801 U/L (333-699) H 08/17/16 10:45 Total Creatine Kinase 179 U/L (35-230) 08/17/16 10:45 Troponin I < 0.01 ng/mL 08/17/16 10:45 Total Protein 6.7 g/dL (5.8-8.3) 08/22/16 06:15 Albumin 3.5 g/dL (3.0-4.8) 08/22/16 06:15 Globulin 3.2 gm/dL 08/22/16 06:15 Albumin/Globulin Ratio 1.1 (1.1-1.8) 08/22/16 06:15 Lipase 290 U/L (23-300) 08/17/16 10:45 Urine Color Yellow (YELLOW) 08/17/16 19:40 Urine Appearance Sl cloudy (CLEAR) 08/17/16 19:40 Urine pH 6.0 (4.7-8.0) 08/17/16 19:40 Ur Specific [place] 1.025 (1.005-1.035) 08/17/16 19:40 Urine Protein 100 mg/dL (<30 mg/dL) H 08/17/16 19:40 Urine Glucose (UA) Negative mg/dL (NEGATIVE) 08/17/16 19:40 Urine Ketones 40 mg/dL (NEGATIVE) H 08/17/16 19:40 Urine Blood Negative (NEGATIVE) 08/17/16 19:40 Urine Nitrate Negative (NEGATIVE) 08/17/16 19:40 Urine Bilirubin Negative (NEGATIVE) 08/17/16 19:40 Urine Urobilinogen 1.0 E.U./dL (<1 E.U./dL) H 08/17/16 19:40 Ur Leukocyte Esterase Negative Gely/uL (NEGATIVE) 08/17/16 19:40 Urine RBC Negative /hpf (0-2) 08/17/16 19:40 Urine WBC 0 - 2 /hpf (0-6) 08/17/16 19:40 Urine Other Mucus 08/17/16 19:40 Urine Opiates Screen Negative (NEGATIVE) 08/17/16 19:40 Urine Methadone Screen Negative (NEGATIVE) 08/17/16 19:40 Ur Barbiturates Screen Negative (NEGATIVE) 08/17/16 19:40 Ur Phencyclidine Scrn Negative (NEGATIVE) 08/17/16 19:40 Ur Amphetamines Screen Negative (NEGATIVE) 08/17/16 19:40 U Benzodiazepines Scrn Positive (NEGATIVE) H 08/17/16 19:40 U Oth Cocaine Metabols Negative (NEGATIVE) 08/17/16 19:40 U Cannabinoids Screen Negative (NEGATIVE) 08/17/16 19:40 Alcohol, Quantitative 190 mg/dL (0-10) H 08/17/16 10:45 Attending/Attestation - Attestation I have personally seen and examined this patient.: Yes I have fully participated in the care of the patient.: Yes I have reviewed all pertinent clinical information, including history, physical exam and plan: Yes Notes (Text): Patient was seen and examined with director biomedical engineering .Agreed with resident assessment and plan. 65 yrs old male with PMH of depression, anxiety, hypertension, chronic ETOH abuse was admitted with fall and alcohol withdrawal.He is not in any alcohol withdrawal today.He is ambulatory.He will be discharged home today. The issue of ongoing alcohol abuse was discussed in detail with patient. Management plan was discussed in detail with patient Education was provided.
[2016-08-23 16:40] VITALS: RESP 20
[2016-08-24 07:58] VITALS: BP 102/71; PULSE 86; TEMP 98.7; O2SAT 98
[2016-08-24] MEDS: Multivitamin Therapeutic Tab PO SCH (09:12)
--- NOTE | 2016-08-24 12:24 | CP.PCM.PN ---
<Lucian Alvarez - Last Filed: 08/24/16 12:21> Subjective - Date & Time of Evaluation Date of Evaluation: 08/24/16 Time of Evaluation: 07:50 - Subjective Subjective: Medicine Progress note. Dr. Harrison Patient was discharged yesterday, however, refused to leave yesterday. Patient's family was contacted by nursing staff and states that they will be arriving this afternoon in order to help the patient home. Patient's prescriptions were electronically sent to the [facility] pharmacy yesterday. Since the patient did not pick them up yesterday, We will hand write all necessary prescriptions. Patient was again advised on the importance of alcohol abstinence. Prescriptions on chart: Folic Acid 1mg PO Daily Motrin 400mg PO q6 prn Pepcid 20mg PO BID Multivitamin 1tab PO Daily Thiamine 100mg PO Daily Objective - Vital Signs/Intake and Output Vital Signs (last 24 hours): Temp Pulse Resp BP Pulse Ox 98.7 F 86 20 102/71 98 08/24/16 07:57 08/24/16 07:57 08/24/16 07:57 08/24/16 07:57 08/24/16 07:57 Intake and Output: 08/24/16 08/24/16 06:59 18:59 Intake Total 1260 Output Total 700 Balance 560 - Medications Medications: Current Medications Famotidine (Pepcid) 20 mg PO 1000,2200 [facility] Last Admin: 08/24/16 09:12 Dose: 20 mg Folic Acid (Folic Acid) 1 mg PO DAILY [facility] Last Admin: 08/24/16 09:12 Dose: 1 mg Ibuprofen (Motrin Tab) 400 mg PO Q6H PRN PRN Reason: Pain, moderate (4-7) Last Admin: 08/23/16 21:27 Dose: 400 mg Multivitamins (Thera Tab) 1 tab PO DAILY [facility] Last Admin: 08/24/16 09:12 Dose: 1 tab Ondansetron HCl (Zofran Tab) 4 mg PO Q8H PRN PRN Reason: Nausea/Vomiting Last Admin: 08/22/16 20:21 Dose: 4 mg Thiamine HCl (Vitamin B1 Tab) 100 mg PO DAILY [facility] Last Admin: 08/24/16 09:13 Dose: 100 mg Ziprasidone (Geodon Inj) 10 mg IM Q8H PRN; Protocol PRN Reason: agitation/psychosis - Labs Labs: 08/22/16 06:15 08/22/16 06:15 PT 10.0 Seconds (9.9-11.8) 08/17/16 10:45 INR 0.93 (0.93-1.08) 08/17/16 10:45 APTT 30.5 Seconds (23.7-30.8) 08/17/16 10:45 - Constitutional Appears: Well, No Acute Distress - Head Exam Head Exam: ATRAUMATIC, NORMAL INSPECTION, NORMOCEPHALIC - Eye Exam Eye Exam: EOMI, PERRL Additional comments: Right eye conjunctival hemorrage - ENT Exam ENT Exam: Mucous Membranes Moist - Respiratory Exam Respiratory Exam: Clear to Ausculation Bilateral, NORMAL BREATHING PATTERN. absent: Wheezes - Cardiovascular Exam Cardiovascular Exam: REGULAR RHYTHM, RRR, +S1, +S2. absent: JVD - GI/Abdominal Exam GI & Abdominal Exam: Soft, Normal Bowel Sounds. absent: Tenderness - Extremities Exam Extremities Exam: Normal Inspection - Neurological Exam Neurological Exam: Alert, Awake, Normal Gait, Oriented x3 - Psychiatric Exam Psychiatric exam: Anxious, Normal Affect, Normal Mood - Skin Skin Exam: Dry, Intact, Normal Color, Warm <Christy GOYAL,Lauren - Last Filed: 08/25/16 11:53> Objective - Vital Signs/Intake and Output Vital Signs (last 24 hours): Temp Pulse Resp BP Pulse Ox 98.7 F 86 20 102/71 98 08/24/16 07:57 08/24/16 07:57 08/24/16 07:57 08/24/16 07:57 08/24/16 07:57 - Labs Labs: 08/22/16 06:15 08/22/16 06:15 PT 10.0 Seconds (9.9-11.8) 08/17/16 10:45 INR 0.93 (0.93-1.08) 08/17/16 10:45 APTT 30.5 Seconds (23.7-30.8) 08/17/16 10:45 Attending/Attestation - Attestation I have personally seen and examined this patient.: Yes I have fully participated in the care of the patient.: Yes I have reviewed all pertinent clinical information, including history, physical exam and plan: Yes Notes (Text): 08/25/16 11:52 Patient was seen and examined with medical sonographer .Agreed with resident assessment and plan. 65 yrs old male with PMH of depression, anxiety, hypertension, chronic ETOH abuse was admitted with fall and alcohol withdrawal.He is not in any alcohol withdrawal.He did not leave yesterday.His family is coming to pick him.He remain stable overnight.There is no overnight issue.Patient will be discharged home and will follow up with PCP. The issue of ongoing alcohol abuse was discussed in detail with patient. Management plan was discussed in detail with patient Education was provided.
--- NOTE | 2016-08-24 12:26 | CP.PCM.PCO ---
Addendum Addendum: 08/24/16 12:24 Patient was restless during my visit this AM and indicated that he did not want to participate in an interview even with the aid of a billposter. He did not appear overtly psychotic or disorganized. Appeared anxious for discharge, pacing the room. No threats or agitation noted. Ativan given for anxiety and restlessness.
[2016-08-24] MEDS ORDERED: Alum-Mag Hydrox-Simethicone Susp (30 mL) PO ONE (15:22)
== END 2016-08-24 16:22 | disposition home or self-care (01) | DRG 750 ==
LOC: ED 09:43 → EROBSV 12:33 → ERH 17:32 → OBSVTOIN 17:32 → ERH 18:43 → 2RNO 20:16 → 5RNO 08-19 14:51
PROVIDERS: ADMIT Internal Medicine; ATTEND Internal Medicine
DX: F10.239 Alcohol dependence with withdrawal, unspecified (principal); D69.6 Thrombocytopenia, unspecified; F05 Delirium due to known physiological condition; S09.90XA Unspecified injury of head, initial encounter; R16.2 Hepatomegaly with splenomegaly, not elsewhere classified; E87.6 Hypokalemia; F32.89 Other specified depressive episodes; I10 Essential (primary) hypertension; R74.0 Nonspecific elevation of levels of transaminase and lactic acid dehydrogenase [LDH]; F10.229 Alcohol dependence with intoxication, unspecified; Z72.0 Tobacco use; Z87.01 Personal history of pneumonia (recurrent); Z87.11 Personal history of peptic ulcer disease; Z90.49 Acquired absence of other specified parts of digestive tract; Z91.19 Patient's noncompliance with other medical treatment and regimen; K29.70 Gastritis, unspecified, without bleeding; R00.0 Tachycardia, unspecified; S00.81XA Abrasion of other part of head, initial encounter; E16.2 Hypoglycemia, unspecified; S80.211A Abrasion, right knee, initial encounter; S80.812A Abrasion, left lower leg, initial encounter; S80.811A Abrasion, right lower leg, initial encounter; R10.9 Unspecified abdominal pain; S00.11XA Contusion of right eyelid and periocular area, initial encounter; S00.83XA Contusion of other part of head, initial encounter; F41.1 Generalized anxiety disorder; Y90.6 Blood alcohol level of 120-199 mg/100 ml; W19.XXXA Unspecified fall, initial encounter

== ENCOUNTER 2016-09-04 19:30 | Inpatient (IN) | payer OTHER, MEDICAID ==
[2016-09-04 19:33] VITALS: BMI 20.9
[2016-09-04] MEDS ORDERED: Sodium Chloride 0.9% 1,000 ML IV STA (19:48)
[2016-09-04] MEDS: Folic Acid 1 MG, Thiamine 100 MG, Multivitamin (MVI) 10 ML in Dextrose 5% In Water 1,00... IV SCH (20:48)
[2016-09-04 20:55] LABS: HEMATOCRIT 41.8 % (42.0-52.0); MEAN CORPUSCULAR HEMOGLOBIN 31.6 pg (25.0-35.0); MEAN CORPUSCULAR HGB CONC 32.5 g/dl (31.0-37.0); MEAN PLATELET VOLUME 8.5 fl (7.0-11.0); RED CELL DISTRIBUTION WIDTH 17.6 % (11.5-14.5); WHITE BLOOD COUNT 8.7 10^3/ul (4.5-11.0)
[2016-09-04 21:03] LABS: ALB/GLOB RATIO 1.2 (1.1-1.8); ALKALINE PHOSPHATASE 75 U/L (38-133); ALT/SGPT 27 U/L (7-56); AST/SGOT 33 U/L (15-59); BILIRUBIN,TOTAL 0.4 mg/dL (0.2-1.3); BLOOD UREA NITROGEN 9 mg/dL (7-21); CALCIUM 8.2 mg/dL (8.4-10.5); CARBON DIOXIDE 20 mmol/L (21-33); CHLORIDE 113 mmol/L (98-107); GFR AFRICAN-AMERICAN > 60; GLUCOSE,RANDOM 80 mg/dL (70-110); POTASSIUM 3.6 mmol/L (3.6-5.0); SODIUM 147 mmol/L (132-148); TOTAL PROTEIN 7.1 g/dL (5.8-8.3)
--- NOTE | 2016-09-04 21:11 | ED PDOC ---
Arrival/HPI - General Historian: Patient - History of Present Illness Time/Duration: Other Symptom Onset: Gradual Symptom Course: Unchanged Activities at Onset: Rest, Light Context: Street <Miller Rodarte - Last Filed: 09/05/16 05:12> <Ludwig Villegas - Last Filed: 09/05/16 15:51> - General Chief Complaint: Alcohol Ingestion Time Seen by Provider: 09/04/16 19:39 - History of Present Illness Narrative History of Present Illness (Text): 09/04/16 19:45 Lloyd Sharma is a 65 year old male, whose past medical history includes alcohol abuse, who presents to the Emergency department brought in by EMS for public intoxication tonight. Patient was found outside inebriated and admits to drinking alcohol tonight. Patient denies any fever, chills, chest pain, shortness of breath, nausea, vomiting, diarrhea, urinary symptoms, back pain, neck pain, headache, dizziness, or any other complaints. (Miller Rodarte) Past Medical History - Provider Review Nursing Documentation Reviewed: Yes - Infectious Disease Hx of Infectious Diseases: None - Tetanus Immunization Tetanus Immunization: Unknown - Past Medical History Past Medical History: Unable to Obtain - Cardiac Hx Hypertension: Yes - Pulmonary Hx Pneumonia: Yes (01-06-15) - Neurological Hx Seizures: No - HEENT Hx HEENT Disorder: Yes - Renal Hx Renal Disorder: No - Endocrine/Metabolic Hx Endocrine Disorders: No - Hematological/Oncological Hx Blood Disorders: No Hx Cancer: No - Integumentary Hx Dermatological Disorder: Yes Other/Comment: multiple long scars to left forearm, multiple abrasions to right knee and b/l lower legs, poor hygiene - Musculoskeletal/Rheumatological Hx Fractures: Yes (LEFT HIP,LEFT ARM LEG) - Gastrointestinal Hx Gastritis: Yes Hx Gastrointestinal Ulcer: Yes - Genitourinary/Gynecological Hx Sexually Transmitted Diseases: No - Psychiatric Hx Anxiety: Yes Hx Bipolar Disorder: No Hx Depression: Yes Hx Schizophrenia: No Hx Substance Use: No (DENIES) - Past Surgical History Past Surgical History: Unable to Obtain - Surgical History Hx Appendectomy: Yes Hx Cholecystectomy: Yes - Anesthesia Hx Anesthesia: Yes Hx Anesthesia Reactions: No Hx Malignant Hyperthermia: No - Suicidal Assessment Feels Threatened In Home Enviroment: No <Miller Rodarte - Last Filed: 09/05/16 05:12> Family/Social History - Physician Review Nursing Documentation Reviewed: Yes Family/Social History: No Known Family HX Smoking Status: Current Some Days Smoker Hx Alcohol Use: Yes (DRINKS DAILY VODKA 1.5 LITER) Hx Substance Use: No (DENIES) Hx Substance Use Treatment: Yes <Miller Rodarte - Last Filed: 09/05/16 05:12> Allergies/Home Meds <iMller Rodarte - Last Filed: 09/05/16 05:12> <Ludwig Villegas - Last Filed: 09/05/16 15:51> Allergies/Adverse Reactions: Allergies No Known Allergies Allergy (Verified 08/17/16 21:58) Review of Systems - Physician Review All systems were reviewed & negative as marked: Yes - Review of Systems Constitutional: Normal. absent: Fevers Eyes: Normal ENT: Normal Respiratory: Normal. absent: SOB, Cough Cardiovascular: Normal. absent: Chest Pain Gastrointestinal: Normal. absent: Abdominal Pain, Diarrhea, Nausea, Vomiting Genitourinary Male: Normal. absent: Dysuria, Frequency, Hematuria, Urinary Output Changes Musculoskeletal: Normal. absent: Back Pain, Neck Pain Skin: Normal. absent: Rash Neurological: Normal. absent: Headache, Dizziness Endocrine: Normal Hemo/Lymphatic: Normal Psychiatric: Normal <Miller Rodarte - Last Filed: 09/05/16 05:12> Physical Exam Vital Signs Reviewed: Yes Temperature: Afebrile Blood Pressure: Hypotensive Pulse: Regular Respiratory Rate: Normal Appearance: Positive for: Well-Appearing, Comfortable Pain Distress: None Mental Status: Positive for: Alert and Oriented X 3 - Systems Exam Head: Present: Atraumatic, Normocephalic Pupils: Present: PERRL Extroacular Muscles: Present: EOMI Conjunctiva: Present: Normal Mouth: Present: Moist Mucous Membranes Neck: Present: Normal Range of Motion Respiratory/Chest: Present: Clear to Auscultation, Good Air Exchange. No: Respiratory Distress, Accessory Muscle Use Cardiovascular: Present: Regular Rate and Rhythm, Normal S1, S2. No: Murmurs Abdomen: Present: Normal Bowel Sounds. No: Tenderness, Distention, Peritoneal Signs Back: Present: Normal Inspection Upper Extremity: Present: Normal Inspection. No: Cyanosis, Edema Lower Extremity: Present: Normal Inspection. No: Edema Neurological: Present: GCS=15, CN II-XII Intact, Speech Normal Skin: Present: Warm, Dry, Normal Color. No: Rashes Psychiatric: Present: Alert, Oriented x 3, Normal Insight, Normal Concentration <Miller Rodarte - Last Filed: 09/05/16 05:12> Vital Signs Pulse Resp BP Pulse Ox 09/05/16 13:55 84 18 133/75 98 09/05/16 09:54 71 18 120/78 98 09/05/16 07:40 67 18 108/63 100 09/05/16 06:07 79 18 108/65 97 09/05/16 05:19 75 18 122/60 95 09/05/16 03:15 71 18 93/62 L 100 09/05/16 01:12 71 18 100/65 96 09/04/16 23:30 88 18 95/74 L 95 09/04/16 21:41 75 18 112/50 L 95 09/04/16 19:44 77 18 83/48 L 97 Medical Decision Making <Miller Rodarte - Last Filed: 09/05/16 05:12> <Ludwig Villegas - Last Filed: 09/05/16 15:51> ED Course and Treatment: 09/04/16 19:45 Impression: 65 year old male brought in for public intoxication tonight. Differential Diagnosis included but are not limited to: alcohol intoxication Plan: -- Labs, alcohol level -- IV fluids, banana bag -- Reassess and disposition Prior Visits: Notes and results from previous visits were reviewed. Progress Notes: (Miller Rodarte) - Lab Interpretations Lab Results: 09/04/16 20:46 09/04/16 20:46 Lab Results 09/05/16 09:50: Lactate Dehydrogenase 411, Total Creatine Kinase 50, Troponin I 0.02 D 09/04/16 20:46: WBC 8.7 D, RBC 4.31, Hgb 13.6 L, Hct 41.8 L, MCV 97.0, MCH 31.6 , MCHC 32.5, RDW 17.6 H, Plt Count 453 H, MPV 8.5, Sodium 147, Potassium 3.6, Chloride 113 H, Carbon Dioxide 20 L, Anion Gap 18, BUN 9, Creatinine 0.5, Est GFR ( Amer) > 60, Est GFR (Non-Af Amer) > 60, Random Glucose 80, Calcium 8.2 L, Total Bilirubin 0.4, AST 33, ALT 27, Alkaline Phosphatase 75, Total Protein 7.1, Albumin 3.8, Globulin 3.3, Albumin/Globulin Ratio 1.2, Alcohol, Quantitative 410 H* - RAD Interpretation Radiology Orders: 09/05/16 09:17 CHEST PORTABLE [RAD] Stat - Medication Orders Current Medication Orders: Acetaminophen (Tylenol 325mg Tab) 650 mg PO Q4 PRN PRN Reason: Pain, moderate (4-7) Al Hydrox/Mg Hydrox/Simethicone (Maalox Plus 30 Ml) 30 ml PO DAILY PRN PRN Reason: Indigestion / Heartburn Chlordiazepoxide (Librium) 25 mg PO Q8 SUMIT PRN Reason: Protocol Last Admin: 09/05/16 14:38 Dose: 25 MG Behavioural Document 09/05/16 14:38 ADRIANA (Rec: 09/05/16 14:39 ADRIANA [id number]) Nonmedicinal Nonmedicinal Interventions See nurse's notes Heparin Sodium (Porcine) (Heparin) 5,000 units SC Q12 SUMIT PRN Reason: Protocol Folic Acid 1 mg/ Thiamine HCl 100 mg/ Multivitamins/Vitamin C 10 ml/ Dextrose 1 ,011.2 mls @ 100 mls/hr IV .Q10H7M SUMIT Last Admin: 09/04/16 20:48 Dose: 100 MLS/HR eMAR Start Stop Document 09/04/16 20:48 SB (Rec: 09/04/16 20:48 SB [id number]) Intravenous Solution Start Date 09/04/16 Start Time 20:48 End Date 09/04/16 Lorazepam (Ativan) 2 mg IVP Q3H PRN; Protocol PRN Reason: Agitation Pantoprazole Sodium (Protonix Ec Tab) 40 mg PO 0630 SUMIT Discontinued Medications Al Hydrox/Mg Hydrox/Simethicone (Maalox Plus 30 Ml) 30 ml PO ONCE ONE Stop: 09/05/16 15:44 Sodium Chloride (Sodium Chloride 0.9%) 1,000 mls @ 999 mls/hr IV .Q1H1M STA Stop: 09/04/16 20:48 Last Admin: 09/04/16 20:48 Dose: 999 MLS/HR eMAR Start Stop Document 09/04/16 20:48 SB (Rec: 09/04/16 20:48 SB [id number]) Intravenous Solution Start Date 09/04/16 Start Time 20:48 End Date 09/04/16 Lorazepam (Ativan) 1 mg IVP ONCE ONE Stop: 09/05/16 09:05 Last Admin: 09/05/16 09:30 Dose: 1 MG Behavioural Document 09/05/16 09:30 ADRIANA (Rec: 09/05/16 09:30 ADRIANA [id number]) Nonmedicinal Nonmedicinal Interventions See nurse's notes Behavior Behavior for Medication: Anxiety IVP Administration Document 09/05/16 09:30 ADRIANA (Rec: 09/05/16 09:30 ADRIANA [id number]) Charges for Administration # of IVP Administrations 1 Lorazepam (Ativan) 1 mg IVP ONCE ONE Stop: 09/05/16 12:05 Last Admin: 09/05/16 12:15 Dose: 1 MG Behavioural Document 09/05/16 12:15 ADRIANA (Rec: 09/05/16 12:15 ADRIANA [id number]) Nonmedicinal Nonmedicinal Interventions See nurse's notes Behavior Behavior for Medication: Anxiety IVP Administration Document 09/05/16 12:15 ADRIANA (Rec: 09/05/16 12:15 ADRIANA [id number]) Charges for Administration # of IVP Administrations 1 ED OBSERVATION Date of observation admission: 09/04/16 Time of observation admission: 19:45 <Miller Rodarte - Last Filed: 09/05/16 05:12> <Ludwig Villegas - Last Filed: 09/05/16 15:51> - Observation admission statement Patient is being placed in observation because:: Alcohol abuse (Miller Rodarte) - Goals of Observation Goals of observation are:: sobriety, observe for signs of withdrawal (Miller Rodarte) - Progress Note Progress Note: 09/04/16 19:45 Pt brought in for public intoxication. Will observe pending sobriety. 09/04/16 21:45 Alcohol level: 410. Pt resting comfortably, no new complaints. 09/05/16 23:45 Pt sleeping currently, in no acute distress. 09/05/16 01:45 Pt resting comfortably, no new complaints. 09/05/16 03:45 Pt sleeping currently, in no acute distress. 09/05/16 05:45 Pt resting comfortably, no new complaints. 09/05/16 07:[address] Villegas, pending sobriety, re-evaluation, and final disposition. (Miller Rodarte) 09/05/16 07:00 Patient signed out to be by Dr. Rodarte. Pending sobriety. Patient sleeping currently, in no acute distress. 09/05/16 09:00 Patient resting comfortably, no new complaints. Report Date : 09/05/2016 10:12:48 Procedure: Chest xray Dictator : Zakia Srivastava MD IMPRESSION: No active pulmonary disease. COPD. 09/05/16 11:00 Patient resting currently, in no acute distress. 09/05/16 12:06 On re-examination, patient is tremulous, unsteady on feet with a heart rate of 105. Patient alcohol level was 410 at 08:45 pm last night. Current symptoms are consistent with alcohol withdrawal. IV Ativan administered. Patient will be admitted to telemetry bed. (Ludwig Villegas) - Scribe Statement The provider has reviewed the documentation as recorded by the Scribe <Miller Rodarte - Last Filed: 09/05/16 05:12> <Ludwig Villegas - Last Filed: 09/05/16 15:51> - Scribe Statement Aida Jarrett (Miller Rodarte) Provider Attestation: All medical record entries made by the Scribe were at my direction and personally dictated by me. I have reviewed the chart and agree that the record accurately reflects my personal performance of the history, physical exam, medical decision making, and the department course for this patient. I have also personally directed, reviewed, and agree with the discharge instructions and disposition. (Miller Rodarte) Disposition/Present on Arrival - Present on Arrival Any Indicators Present on Arrival: No History of DVT/PE: No History of Uncontrolled Diabetes: No Urinary Catheter: No History of Decub. Ulcer: No History Surgical Site Infection Following: None - Disposition Have Diagnosis and Disposition been Completed?: No <Miller Rodarte - Last Filed: 09/05/16 05:12> - Disposition Have Diagnosis and Disposition been Completed?: Yes Disposition Time: 11:00 Patient Plan: Admission, Telemetry <Ludwig Villegas - Last Filed: 09/05/16 15:51> - Disposition Diagnosis: Alcohol intoxication, Alcohol withdrawal Disposition: HOSPITALIZED Patient Problems: Current Active Problems Problem Status Diagnosed Alcohol withdrawal Acute Alcohol intoxication Chronic Condition: SERIOUS
--- NOTE | 2016-09-05 10:14 | RAD ---
HISTORY: Chest pain COMPARISON: No prior. FINDINGS: LUNGS: The lungs are hyperinflated and there is peribronchial thickening with chronic changes in both lungs. There is left basilar scarring. There is no focal consolidation. PLEURA: No significant pleural effusion identified, no pneumothorax apparent. CARDIOVASCULAR: Normal. OSSEOUS STRUCTURES: No significant abnormalities. VISUALIZED UPPER ABDOMEN: Normal. OTHER FINDINGS: None. IMPRESSION: No active pulmonary disease. COPD.
[2016-09-05 10:28] LABS: TROPONIN I 0.02 ng/mL
--- NOTE | 2016-09-05 15:23 | CARD ---
APPROVED REPORT EKG Measurement Heart [id number] <Conclusion> Sinus rhythm with premature supraventricular complexes Otherwise normal ECG
[2016-09-05] MEDS ORDERED: Alum-Mag Hydrox-Simethicone Susp (30 mL) PO ONE (15:43)
--- NOTE | 2016-09-05 15:49 | CP.PCM.HP ---
<Lisa Faria - Last Filed: 09/05/16 16:14> History of Present Illness - History of Present Illness History of Present Illness: 65 yo M w/PMHx of alcohol abuse, gerd, gastritis, presents to ED via EMS who found him publicly intoxicated. As per ED note, pt drank 2 L vodka the night before. Pt reports vomiting 7 times without blood. Pt is currently a poor historian. c/o SOB, dizziness, [place], epigastric pain with radiation to midline chest. Denies urinary symptoms and changes in BM. PMHx: alcohol abuse, gerd, gastritis Sx: cholecystectomy, appendectomy all: NKDA social: 1.5 L vodka per day, casual intermittent smoking and unknown illicit drug use. Present on Admission - Present on Admission Any Indicators Present on Admission: No Review of Systems - Review of Systems All systems: reviewed and no additional remarkable complaints except - Constitutional Constitutional: Headache. absent: Fever - Cardiovascular Cardiovascular: Dyspnea. absent: Chest Pain - Gastrointestinal Gastrointestinal: Abdominal Pain, Vomiting. absent: Hematemesis - Genitourinary Genitourinary: absent: Dysuria, Hematuria Past Patient History - Infectious Disease Hx of Infectious Diseases: None - Tetanus Immunizations Tetanus Immunization: Unknown - Past Medical History & Family History Past Medical History?: Yes - Past Social History Smoking Status: Current Some Days Smoker - CARDIAC Hx Hypertension: Yes - PULMONARY Hx Pneumonia: Yes (01-06-15) - NEUROLOGICAL Hx Seizures: No - HEENT Hx HEENT Problems: Yes - RENAL Hx Chronic Kidney Disease: No - ENDOCRINE/METABOLIC Hx Endocrine Disorders: No - HEMATOLOGICAL/ONCOLOGICAL Hx Blood Disorders: No Hx Cancer: No - INTEGUMENTARY Hx Dermatological Problems: Yes Other/Comment: multiple long scars to left forearm, multiple abrasions to right knee and b/l lower legs, poor hygiene - MUSCULOSKELETAL/RHEUMATOLOGICAL Hx Fractures: Yes (LEFT HIP,LEFT ARM LEG) - GASTROINTESTINAL Hx Gastritis: Yes - GENITOURINARY/GYNECOLOGICAL Hx Sexually Transmitted Disorders: No - PSYCHIATRIC Hx Anxiety: Yes Hx Bipolar Disorder: No Hx Depression: Yes Hx Schizophrenia: No Hx Substance Use: No (DENIES) - SURGICAL HISTORY Hx Appendectomy: Yes Hx Cholecystectomy: Yes - ANESTHESIA Hx Anesthesia: Yes Hx Anesthesia Reactions: No Hx Malignant Hyperthermia: No Meds Allergies/Adverse Reactions: Allergies Allergy/AdvReac Type Severity Reaction Status Date / Time No Known Allergies Allergy Verified 08/17/16 21:58 Physical Exam - Constitutional Appears: Unkempt, Agitated - Eye Exam Eye Exam: EOMI, Normal appearance - ENT Exam ENT Exam: Mucous Membranes Moist, Normal Exam - Respiratory Exam Respiratory Exam: Clear to Auscultation Bilateral, NORMAL BREATHING PATTERN - Cardiovascular Exam Cardiovascular Exam: +S1, +S2. absent: Bradycardia - GI/Abdominal Exam GI & Abdominal Exam: Soft. absent: Tenderness - Exam External exam: absent: Erythema, Swelling - Extremities Exam Extremities exam: Negative for: pedal edema, tenderness - Neurological Exam Neurological exam: Alert, Oriented x3 - Psychiatric Exam Psychiatric exam: Anxious - Skin Skin Exam: Intact, Pallor Results - Vital Signs Recent Vital Signs: Last Vital Signs Temp Pulse 84 09/05/16 13:55 Resp 18 09/05/16 13:55 BP 133/75 09/05/16 13:55 Pulse Ox 98 09/05/16 13:55 - Labs Result Diagrams: 09/04/16 20:46 09/04/16 20:46 Assessment & Plan - Assessment and Plan (Free Text) Plan: 65 yo M w/PMhx alcohol abuse, gerd, gastritis, presents from EMS for public intoxication. Alcohol level is 410. Pt is admitted for ETOH intoxication and withdrawal. Etoh withdrawal/intoxication: banana Bag with multivitamin/folic acid/thiamine CIWA protocol ativan and librium PRN abdominal pain with radiation to chest midline: troponins trend, first one negative EKG without ST elevations or depressions Gerd: Maalox prn protonix PPx measures: heparin protonix <Brenda Hernandez - Last Filed: 09/05/16 17:48> Results - Vital Signs Recent Vital Signs: Last Vital Signs Temp Pulse 85 09/05/16 17:36 Resp 16 09/05/16 17:36 BP 125/78 09/05/16 17:36 Pulse Ox 97 09/05/16 17:36 - Labs Result Diagrams: 09/04/16 20:46 09/04/16 20:46 Attending/Attestation - Attestation I have personally seen and examined this patient.: Yes I have fully participated in the care of the patient.: Yes I have reviewed all pertinent clinical information: Yes Notes (Text): 09/05/16 17:45 65 year old male with past medical history of chronic ETOH abuse, GERD, and gastritis who was brought in for alcohol intoxication last night. He is admitted this morning due to alcohol withdrawal. Continue with banana bag, librium and ativan prn for withdrawal symptoms. He was counselled on alcohol abstinence, unfortunately he fails to comply. He also complains of epigastric/chest pain which he states is like heartburn. EKG without any acute changes. Will obtain serial cardiac enzymes and continue with protonix. Brenda Hernandez MD Hospitalist.
[2016-09-05] MEDS: Folic Acid 1 MG, Thiamine 100 MG, Multivitamin (MVI) 10 ML in Dextrose 5% In Water 1,00... IV SCH (21:56)
[2016-09-06] MEDS: Alum-Mag Hydrox-Simethicone Susp (30 mL) PO PRN (00:47)
[2016-09-06 03:12] LABS: TROPONIN I < 0.01 ng/mL
[2016-09-06] MEDS: Pantoprazole 40 mg EC Tab PO SCH (05:32)
[2016-09-06] MEDS: Folic Acid 1 MG, Thiamine 100 MG, Multivitamin (MVI) 10 ML in Dextrose 5% In Water 1,00... IV SCH ×5 (07:31→22:08)
[2016-09-06 07:33] LABS: MEAN CELL VOLUME 94.5 fL (80.0-105.0); MEAN CORPUSCULAR HEMOGLOBIN 31.5 pg (25.0-35.0); MEAN CORPUSCULAR HGB CONC 33.3 g/dl (31.0-37.0); RED CELL DISTRIBUTION WIDTH 16.5 % (11.5-14.5); WHITE BLOOD COUNT 9.5 10^3/ul (4.5-11.0)
[2016-09-06 07:58] LABS: TROPONIN I < 0.01 ng/mL
[2016-09-06 08:24] LABS: ALB/GLOB RATIO 1.1 (1.1-1.8); ALKALINE PHOSPHATASE 66 U/L (38-133); ALT/SGPT 28 U/L (7-56); AST/SGOT 48 U/L (15-59); BILIRUBIN,TOTAL 0.9 mg/dL (0.2-1.3); BLOOD UREA NITROGEN 9 mg/dL (7-21); CALCIUM 8.8 mg/dL (8.4-10.5); CARBON DIOXIDE 27 mmol/L (21-33); CHLORIDE 103 mmol/L (98-107); GFR AFRICAN-AMERICAN > 60; GLUCOSE,RANDOM 85 mg/dL (70-110); POTASSIUM 3.5 mmol/L (3.6-5.0); SODIUM 137 mmol/L (132-148); TOTAL PROTEIN 6.5 g/dL (5.8-8.3)
[2016-09-06] MEDS ORDERED: Potassium Chloride 40 mEq/30 ml LIQ UD PO ONE (09:26)
--- NOTE | 2016-09-06 13:32 | RAD ---
PROCEDURE: Right ribs HISTORY: pain after fall COMPARISON: TECHNIQUE: Three views FINDINGS: There is no displaced fracture. No pneumothorax IMPRESSION: Negative study
--- NOTE | 2016-09-06 16:05 | CP.PCM.PN ---
<BienvenidoLisa - Last Filed: 09/06/16 16:09> Subjective - Date & Time of Evaluation Date of Evaluation: 09/06/16 Time of Evaluation: 08:10 - Subjective Subjective: Pt seen and evaluated at bedside. Pt still tremulous, and has R chest pain complaint. Denies SOB, and N/V. Afebrile overnight. Objective - Vital Signs/Intake and Output Vital Signs (last 24 hours): Temp Pulse Resp BP Pulse Ox 98.6 F 80 20 126/74 97 09/06/16 05:41 09/06/16 05:41 09/06/16 05:41 09/06/16 05:41 09/06/16 05:41 Intake and Output: 09/06/16 09/06/16 06:59 18:59 Intake Total 2040 840 Output Total 2125 2200 Balance -85 -1360 - Medications Medications: Current Medications Acetaminophen (Tylenol 325mg Tab) 650 mg PO Q4 PRN PRN Reason: Pain, moderate (4-7) Last Admin: 09/06/16 14:43 Dose: 650 mg Al Hydrox/Mg Hydrox/Simethicone (Maalox Plus 30 Ml) 30 ml PO DAILY PRN PRN Reason: Indigestion / Heartburn Last Admin: 09/06/16 00:47 Dose: 30 ml Chlordiazepoxide (Librium) 25 mg PO Q8 SUMIT PRN Reason: Protocol Last Admin: 09/06/16 14:41 Dose: 25 mg Heparin Sodium (Porcine) (Heparin) 5,000 units SC Q12 SUMIT PRN Reason: Protocol Last Admin: 09/06/16 09:55 Dose: 5,000 units Folic Acid 1 mg/ Thiamine HCl 100 mg/ Multivitamins/Vitamin C 10 ml/ Dextrose 1 ,011.2 mls @ 100 mls/hr IV .Q10H7M [facility] Last Admin: 09/06/16 12:50 Dose: 100 mls/hr Lorazepam (Ativan) 2 mg IVP Q3H PRN; Protocol PRN Reason: Agitation Last Admin: 09/05/16 19:25 Dose: 2 mg Pantoprazole Sodium (Protonix Ec Tab) 40 mg PO 0630 [facility] Last Admin: 09/06/16 05:32 Dose: 40 mg - Labs Labs: 09/06/16 07:00 09/06/16 07:00 - Constitutional Appears: Unkempt, Agitated - Eye Exam Eye Exam: EOMI, Normal appearance - ENT Exam ENT Exam: Mucous Membranes Moist, Normal Exam - Respiratory Exam Respiratory Exam: Clear to Ausculation Bilateral, NORMAL BREATHING PATTERN - Cardiovascular Exam Cardiovascular Exam: +S1, +S2. absent: Bradycardia - GI/Abdominal Exam GI & Abdominal Exam: Soft. absent: Tenderness - Extremities Exam Extremities Exam: absent: Pedal Edema, Tenderness - Back Exam Back Exam: absent: CVA tenderness (L), CVA tenderness (R) - Neurological Exam Neurological Exam: Alert, Awake, Oriented x3 - Skin Skin Exam: Normal Color, Warm Assessment and Plan - Assessment and Plan (Free Text) Plan: 65 yo M w/PMhx alcohol abuse, gerd, gastritis, presents from EMS for public intoxication. Alcohol level is 410. Pt is admitted for ETOH intoxication and withdrawal. ETOH withdrawal/intoxication: banana Bag with multivitamin/folic acid/thiamine CIWA protocol ativan and librium PRN Abdominal pain with radiation to chest midline: troponins trend, trops neg x3 EKG without ST elevations or depressions Gerd: Maalox prn protonix R chest pain: Rib XR ordered and negative for frx Tylenol prn for pain PPx measures: heparin protonix <Brenda Hernandez - Last Filed: 09/06/16 16:27> Objective - Vital Signs/Intake and Output Vital Signs (last 24 hours): Temp Pulse Resp BP Pulse Ox 98.6 F 80 20 126/74 97 09/06/16 05:41 09/06/16 05:41 09/06/16 05:41 09/06/16 05:41 09/06/16 05:41 Intake and Output: 09/06/16 09/06/16 06:59 18:59 Intake Total 2040 840 Output Total 2125 2200 Balance -85 -1360 - Medications Medications: Current Medications Acetaminophen (Tylenol 325mg Tab) 650 mg PO Q4 PRN PRN Reason: Pain, moderate (4-7) Last Admin: 09/06/16 14:43 Dose: 650 mg Al Hydrox/Mg Hydrox/Simethicone (Maalox Plus 30 Ml) 30 ml PO DAILY PRN PRN Reason: Indigestion / Heartburn Last Admin: 09/06/16 00:47 Dose: 30 ml Chlordiazepoxide (Librium) 25 mg PO Q8 SUMIT PRN Reason: Protocol Last Admin: 09/06/16 14:41 Dose: 25 mg Heparin Sodium (Porcine) (Heparin) 5,000 units SC Q12 SUMIT PRN Reason: Protocol Last Admin: 09/06/16 09:55 Dose: 5,000 units Folic Acid 1 mg/ Thiamine HCl 100 mg/ Multivitamins/Vitamin C 10 ml/ Dextrose 1 ,011.2 mls @ 100 mls/hr IV .Q10H7M [facility] Last Admin: 09/06/16 12:50 Dose: 100 mls/hr Lorazepam (Ativan) 2 mg IVP Q3H PRN; Protocol PRN Reason: Agitation Last Admin: 09/05/16 19:25 Dose: 2 mg Pantoprazole Sodium (Protonix Ec Tab) 40 mg PO 0630 [facility] Last Admin: 09/06/16 05:32 Dose: 40 mg - Labs Labs: 09/06/16 07:00 09/06/16 07:00 Attending/Attestation - Attestation I have personally seen and examined this patient.: Yes I have fully participated in the care of the patient.: Yes I have reviewed all pertinent clinical information, including history, physical exam and plan: Yes Notes (Text): 09/06/16 16:25 65 year old male with past medical history of chronic ETOH abuse, GERD, and gastritis who was brought in for alcohol intoxication. He was admitted for alcohol withdrawal. Continue with banana bag. He is also on librium and ativan prn for withdrawal symptoms. He was counselled on alcohol abstinence. He complains of right sided chest wall pain. He has history of rib fracture. Rib series was ordered by negative for acute fracture. Serial cardiac enzymes were negative and ACS was ruled out. Will replete and repeat potassium. Brenda Hernandez MD Hospitalist.
[2016-09-07] MEDS: Pantoprazole 40 mg EC Tab PO SCH (05:34)
[2016-09-07] MEDS: Folic Acid 1 MG, Thiamine 100 MG, Multivitamin (MVI) 10 ML in Dextrose 5% In Water 1,00... IV SCH (05:34)
[2016-09-07 07:56] LABS: ADD MANUAL DIFF? NO
[2016-09-07 08:01] LABS: BASO # 0.02 K/mm3 (0.0-2.0); BASO % 0.2 % (0.0-3.0); EOS # 0.2 (0.0-0.7); EOS % 1.9 % (1.5-5.0); GRAN # 6.39 (1.4-6.5); GRAN % 72.1 % (50.0-68.0); LYMPH # 1.4 (1.2-3.4); LYMPH % 15.9 % (22.0-35.0); MEAN CELL VOLUME 95.2 fL (80.0-105.0); MEAN CORPUSCULAR HEMOGLOBIN 31.6 pg (25.0-35.0); MEAN CORPUSCULAR HGB CONC 33.2 g/dl (31.0-37.0); MEAN PLATELET VOLUME 8.6 fl (7.0-11.0); MONO # 0.9 (0.1-0.6); MONO % 9.9 % (1.0-6.0); PLATELET COUNT 293 10^3/uL (120.0-450.0); RED CELL DISTRIBUTION WIDTH 16.1 % (11.5-14.5); WHITE BLOOD COUNT 8.9 10^3/ul (4.5-11.0)
[2016-09-07] MEDS ORDERED: Potassium Chloride 20 mEq ER Tab PO STA (08:14)
[2016-09-07 08:22] LABS: ALB/GLOB RATIO 1.2 (1.1-1.8); ALKALINE PHOSPHATASE 68 U/L (38-133); ALT/SGPT 22 U/L (7-56); AST/SGOT 26 U/L (15-59); BILIRUBIN,TOTAL 0.5 mg/dL (0.2-1.3); BLOOD UREA NITROGEN 9 mg/dL (7-21); CARBON DIOXIDE 26 mmol/L (21-33); CHLORIDE 101 mmol/L (95-110); GFR AFRICAN-AMERICAN > 60; GLUCOSE,RANDOM 88 mg/dL (70-110); POTASSIUM 3.9 mmol/L (3.6-5.0); SODIUM 136 mmol/L (132-148); TOTAL PROTEIN 6.5 g/dL (5.8-8.3)
--- NOTE | 2016-09-07 11:38 | CP.PCM.PN ---
<Shorty Najera - Last Filed: 09/07/16 11:35> Subjective - Date & Time of Evaluation Date of Evaluation: 09/07/16 Time of Evaluation: 08:00 - Subjective Subjective: Dr. Najera PGY 1 Hospitalist Note Patient seen and evaluated at bedside with attending physician. Patient continues to complain of chest pain and tenderness in right leg where IV is placed. He exhibits minor withdrawal symptoms but denies any nausea, vomiting, SOB, diarrhea, fever, or chills. He is tolerating his diet well. He reports drinking 3 pints of Vodka daily. Objective - Vital Signs/Intake and Output Vital Signs (last 24 hours): Temp Pulse Resp BP Pulse Ox 97.4 F L 68 18 112/62 96 09/07/16 05:49 09/07/16 05:49 09/07/16 05:49 09/07/16 05:49 09/07/16 05:49 Intake and Output: 09/07/16 09/07/16 06:59 18:59 Intake Total 2620 Output Total 4580 Balance -1960 - Medications Medications: Current Medications Acetaminophen (Tylenol 325mg Tab) 650 mg PO Q4 PRN PRN Reason: Pain, moderate (4-7) Last Admin: 09/06/16 14:43 Dose: 650 mg Al Hydrox/Mg Hydrox/Simethicone (Maalox Plus 30 Ml) 30 ml PO DAILY PRN PRN Reason: Indigestion / Heartburn Last Admin: 09/06/16 00:47 Dose: 30 ml Chlordiazepoxide (Librium) 10 mg PO Q8 [facility] PRN Reason: Protocol Heparin Sodium (Porcine) (Heparin) 5,000 units SC Q12 [facility] PRN Reason: Protocol Last Admin: 09/07/16 09:59 Dose: 5,000 units Folic Acid 1 mg/ Thiamine HCl 100 mg/ Multivitamins/Vitamin C 10 ml/ Dextrose 1 ,011.2 mls @ 100 mls/hr IV .Q10H7M [facility] Last Admin: 09/07/16 05:34 Dose: 100 mls/hr Ketorolac Tromethamine (Toradol) 15 mg IVP Q6 PRN PRN Reason: Pain, severe (8-10) Last Admin: 09/07/16 09:43 Dose: 15 mg Lorazepam (Ativan) 2 mg IVP Q3H PRN; Protocol PRN Reason: Agitation Last Admin: 09/05/16 19:25 Dose: 2 mg Pantoprazole Sodium (Protonix Ec Tab) 40 mg PO 0630 [facility] Last Admin: 09/07/16 05:34 Dose: 40 mg - Labs Labs: 09/07/16 07:53 09/07/16 07:53 - Constitutional Appears: Older Than Stated Age - Head Exam Head Exam: NORMOCEPHALIC. absent: ATRAUMATIC (contusions and echymosis under both eyes) - Eye Exam Eye Exam: EOMI, Normal appearance, PERRL Pupil Exam: NORMAL ACCOMODATION, PERRL - ENT Exam ENT Exam: Mucous Membranes Moist. absent: Normal Oropharynx (poor dentition) - Respiratory Exam Respiratory Exam: Chest Wall Tenderness, NORMAL BREATHING PATTERN. absent: Rales, Rhonchi, Wheezes - Cardiovascular Exam Cardiovascular Exam: REGULAR RHYTHM, +S1, +S2. absent: Gallop, Rubs, Murmur - GI/Abdominal Exam GI & Abdominal Exam: Soft, Normal Bowel Sounds. absent: Tenderness - Extremities Exam Extremities Exam: absent: Normal Inspection (IV in right leg, asterixis, multiple bruises) - Back Exam Back Exam: NORMAL INSPECTION. absent: muscle spasm, rash noted, tenderness - Neurological Exam Neurological Exam: Alert, Awake, CN II-XII Intact, Oriented x3 Additional comments: asterixis - Psychiatric Exam Psychiatric exam: Normal Affect, Normal Mood - Skin Skin Exam: Abrasion, Dry, Normal Color, Warm. absent: Intact (multpiple) Assessment and Plan - Assessment and Plan (Free Text) Assessment: 65 yo M w/PMhx alcohol abuse, gerd, gastritis, presents from EMS for public intoxication. Alcohol level 410 on admission. Pt is admitted for ETOH intoxication and withdrawal symptoms. Plan: ETOH withdrawal/intoxication: * banana Bag with multivitamin/folic acid/thiamine * Continue CIWA protocol * Decreased Librium to 10 mg Q8H * Continue Ativan taper * Monitor for seizure activity Chest pain: * Initial EKG showed Sinus rhythm with PSVC rate 83bpm * Cardiac enzymes negative x3 * Initial Xray showed no acute disease, COPD * Rib series ordered, negative for fractures [see full report] * Likely musculoskeletal in nature * XR ordered and negative for frx * Tylenol prn minor esperanza * Toradol 15mg IVP prn severe pain Hx of GERD * Protonix 40mg PO daily * Maalox prn PPx measures: * heparin * protonix Assessment and plan discussed with attending physician. <Lauren Harrison MD - Last Filed: 09/07/16 13:03> Objective - Vital Signs/Intake and Output Vital Signs (last 24 hours): Temp Pulse Resp BP Pulse Ox 98 F 65 18 111/72 96 09/07/16 12:00 09/07/16 12:00 09/07/16 12:00 09/07/16 12:00 09/07/16 05:49 Intake and Output: 09/07/16 09/07/16 06:59 18:59 Intake Total 2620 Output Total 4580 Balance -1960 - Medications Medications: Current Medications Acetaminophen (Tylenol 325mg Tab) 650 mg PO Q4 PRN PRN Reason: Pain, moderate (4-7) Last Admin: 09/06/16 14:43 Dose: 650 mg Al Hydrox/Mg Hydrox/Simethicone (Maalox Plus 30 Ml) 30 ml PO DAILY PRN PRN Reason: Indigestion / Heartburn Last Admin: 09/06/16 00:47 Dose: 30 ml Chlordiazepoxide (Librium) 10 mg PO Q8 [facility] PRN Reason: Protocol Heparin Sodium (Porcine) (Heparin) 5,000 units SC Q12 [facility] PRN Reason: Protocol Last Admin: 09/07/16 09:59 Dose: 5,000 units Folic Acid 1 mg/ Thiamine HCl 100 mg/ Multivitamins/Vitamin C 10 ml/ Dextrose 1 ,011.2 mls @ 100 mls/hr IV .Q10H7M [facility] Last Admin: 09/07/16 05:34 Dose: 100 mls/hr Ketorolac Tromethamine (Toradol) 15 mg IVP Q6 PRN PRN Reason: Pain, severe (8-10) Last Admin: 09/07/16 09:43 Dose: 15 mg Lorazepam (Ativan) 2 mg IVP Q3H PRN; Protocol PRN Reason: Agitation Last Admin: 09/05/16 19:25 Dose: 2 mg Pantoprazole Sodium (Protonix Ec Tab) 40 mg PO 0630 [facility] Last Admin: 09/07/16 05:34 Dose: 40 mg - Labs Labs: 09/07/16 07:53 09/07/16 07:53 Attending/Attestation - Attestation I have personally seen and examined this patient.: Yes I have fully participated in the care of the patient.: Yes I have reviewed all pertinent clinical information, including history, physical exam and plan: Yes Notes (Text): Patient was seen and examined with medical representative .Agreed with resident assessment and plan. Patient alcohol withdrawal are improving, we will decrease dose of Librium to 10 mg PO TID. We will monitor closely.IV fluid can be discontinued. Management plan was discussed in detail with patient Education was provided.
[2016-09-08] MEDS: Alum-Mag Hydrox-Simethicone Susp (30 mL) PO PRN ×2 (02:01→22:38)
[2016-09-08] MEDS: Pantoprazole 40 mg EC Tab PO SCH (06:30)
[2016-09-08 07:59] LABS: ADD MANUAL DIFF? NO
[2016-09-08 08:04] LABS: BASO # 0.03 K/mm3 (0.0-2.0); BASO % 0.5 % (0.0-3.0); EOS # 0.2 (0.0-0.7); EOS % 3.7 % (1.5-5.0); GRAN # 4.05 (1.4-6.5); HEMATOCRIT 37.7 % (42.0-52.0); LYMPH # 1.6 (1.2-3.4); LYMPH % 24.2 % (22.0-35.0); MEAN CELL VOLUME 96.4 fL (80.0-105.0); MEAN CORPUSCULAR HEMOGLOBIN 31.7 pg (25.0-35.0); MEAN CORPUSCULAR HGB CONC 32.9 g/dl (31.0-37.0); MEAN PLATELET VOLUME 9.5 fl (7.0-11.0); MONO # 0.6 (0.1-0.6); MONO % 9.6 % (1.0-6.0); PLATELET COUNT 246 10^3/uL (120.0-450.0); RED CELL DISTRIBUTION WIDTH 16.1 % (11.5-14.5); WHITE BLOOD COUNT 6.5 10^3/ul (4.5-11.0)
[2016-09-08 08:12] LABS: ALB/GLOB RATIO 1.1 (1.1-1.8); ALKALINE PHOSPHATASE 71 U/L (38-133); ALT/SGPT 19 U/L (7-56); AST/SGOT 24 U/L (15-59); BILIRUBIN,TOTAL 0.3 mg/dL (0.2-1.3); BLOOD UREA NITROGEN 17 mg/dL (7-21); CALCIUM 9.2 mg/dL (8.4-10.5); CARBON DIOXIDE 26 mmol/L (21-33); CHLORIDE 99 mmol/L (95-110); GFR AFRICAN-AMERICAN > 60; GLUCOSE,RANDOM 82 mg/dL (70-110); POTASSIUM 4.4 mmol/L (3.6-5.0); SODIUM 135 mmol/L (132-148); TOTAL PROTEIN 6.8 g/dL (5.8-8.3)
[2016-09-08] MEDS: Multivitamin Therapeutic Tab PO SCH (09:15)
--- NOTE | 2016-09-08 13:36 | CP.PCM.PN ---
<Shorty Najera - Last Filed: 09/08/16 14:03> Subjective - Date & Time of Evaluation Date of Evaluation: 09/08/16 Time of Evaluation: 10:05 - Subjective Subjective: Dr. Najera PGY 1 Hospitalist Note Patient seen and evaluated at bedside with attending physician. He continues to report pain in the chest and face where he fell on the ground but pain is improved. He denies any SOB, palpitations, nausea, vomiting, diarrhea, constipation, fever, or chills. His withdrawal symptoms are noticeably improved. Nursing attempted to ambulate patient and he was unsteady. No other adverse events reported by nursing. Objective - Vital Signs/Intake and Output Vital Signs (last 24 hours): Temp Pulse Resp BP Pulse Ox 97.6 F 70 18 112/70 97 09/08/16 12:00 09/08/16 12:00 09/08/16 12:00 09/08/16 12:00 09/08/16 06:00 Intake and Output: 09/08/16 09/08/16 06:59 18:59 Intake Total 4940 Output Total 7350 Balance -2410 - Medications Medications: Current Medications Acetaminophen (Tylenol 325mg Tab) 650 mg PO Q4 PRN PRN Reason: Pain, moderate (4-7) Last Admin: 09/07/16 15:40 Dose: 650 mg Al Hydrox/Mg Hydrox/Simethicone (Maalox Plus 30 Ml) 30 ml PO DAILY PRN PRN Reason: Indigestion / Heartburn Last Admin: 09/08/16 02:01 Dose: 30 ml Chlordiazepoxide (Librium) 10 mg PO Q8 [facility] PRN Reason: Protocol Last Admin: 09/07/16 21:30 Dose: 10 mg Famotidine (Pepcid) 20 mg PO 1000,2200 [facility] Last Admin: 09/08/16 09:15 Dose: 20 mg Folic Acid (Folic Acid) 1 mg PO DAILY [facility] Last Admin: 09/08/16 09:15 Dose: 1 mg Heparin Sodium (Porcine) (Heparin) 5,000 units SC Q12 [facility] PRN Reason: Protocol Last Admin: 09/08/16 09:15 Dose: 5,000 units Ketorolac Tromethamine (Toradol) 15 mg IVP Q6 PRN PRN Reason: Pain, severe (8-10) Last Admin: 09/08/16 01:52 Dose: 15 mg Lorazepam (Ativan) 1 mg IVP Q4H PRN; Protocol PRN Reason: Symptoms of alcohol withdrawl Multivitamins (Thera Tab) 1 tab PO DAILY [facility] Last Admin: 09/08/16 09:15 Dose: 1 tab Pantoprazole Sodium (Protonix Ec Tab) 40 mg PO 0630 [facility] Last Admin: 09/08/16 06:30 Dose: 40 mg Thiamine HCl (Vitamin B1 Tab) 100 mg PO DAILY [facility] Last Admin: 09/08/16 09:16 Dose: 100 mg - Labs Labs: 09/08/16 07:57 09/08/16 07:57 - Constitutional Appears: Non-toxic, No Acute Distress - Head Exam Head Exam: NORMOCEPHALIC. absent: ATRAUMATIC (broek nose, hematoma below both eyes ), NORMAL INSPECTION - Eye Exam Eye Exam: EOMI, Normal appearance, PERRL Pupil Exam: NORMAL ACCOMODATION, PERRL - ENT Exam ENT Exam: Mucous Membranes Moist. absent: Normal Oropharynx (poor dentition) - Neck Exam Neck Exam: Normal Inspection. absent: Tenderness, Thyromegaly - Respiratory Exam Respiratory Exam: Chest Wall Tenderness, Clear to Ausculation Bilateral, NORMAL BREATHING PATTERN. absent: Rales, Rhonchi, Wheezes - Cardiovascular Exam Cardiovascular Exam: REGULAR RHYTHM, +S1, +S2. absent: Gallop, Rubs, Murmur - GI/Abdominal Exam GI & Abdominal Exam: Soft, Normal Bowel Sounds. absent: Distended, Firm, Tenderness - Extremities Exam Extremities Exam: Normal Capillary Refill, Normal Inspection. absent: Pedal Edema, Tenderness - Back Exam Back Exam: NORMAL INSPECTION. absent: rash noted - Neurological Exam Neurological Exam: Abnormal Gait, Alert, Awake, CN II-XII Intact, Oriented x3 - Psychiatric Exam Psychiatric exam: Depressed, Flat Affect - Skin Skin Exam: Dry, Intact, Normal Color, Warm Assessment and Plan - Assessment and Plan (Free Text) Assessment: 65 yo M w/PMhx alcohol abuse, gerd, gastritis, presents from EMS for public intoxication. Alcohol level 410 on admission. Pt is admitted for ETOH intoxication and withdrawal symptoms. Patient unsteady on his feet this morning. Plan: ETOH withdrawal/intoxication: * Continuemultivitamin/folic acid/thiamine * Continue CIWA protocol * Continue Librium to 10 mg Q8H * Continue Ativan taper- decreased to 1mg Q4H * Monitor for seizure activity * PT evaluation and treatment Chest pain: * Initial EKG showed Sinus rhythm with PSVC rate 83bpm * Cardiac enzymes negative x3 * Initial Xray showed no acute disease, COPD * Rib series ordered, negative for fractures [see full report] * Likely musculo-skeletal in nature * XR ordered and negative for frx * Tylenol prn minor pain * Toradol 15mg IVP prn severe pain Hx of GERD * Protonix 40mg PO daily * Maalox prn PPx measures: * heparin * protonix Assessment and plan discussed with attending physician. <Christy GOYAL,Lauren - Last Filed: 09/08/16 14:25> Objective - Vital Signs/Intake and Output Vital Signs (last 24 hours): Temp Pulse Resp BP Pulse Ox 97.6 F 70 18 112/70 97 09/08/16 12:00 09/08/16 12:00 09/08/16 12:00 09/08/16 12:00 09/08/16 06:00 Intake and Output: 09/08/16 09/08/16 06:59 18:59 Intake Total 4940 Output Total 7350 Balance -2410 - Medications Medications: Current Medications Acetaminophen (Tylenol 325mg Tab) 650 mg PO Q4 PRN PRN Reason: Pain, moderate (4-7) Last Admin: 09/07/16 15:40 Dose: 650 mg Al Hydrox/Mg Hydrox/Simethicone (Maalox Plus 30 Ml) 30 ml PO DAILY PRN PRN Reason: Indigestion / Heartburn Last Admin: 09/08/16 02:01 Dose: 30 ml Chlordiazepoxide (Librium) 10 mg PO Q8 [facility] PRN Reason: Protocol Last Admin: 09/07/16 21:30 Dose: 10 mg Famotidine (Pepcid) 20 mg PO 1000,2200 [facility] Last Admin: 09/08/16 09:15 Dose: 20 mg Folic Acid (Folic Acid) 1 mg PO DAILY [facility] Last Admin: 09/08/16 09:15 Dose: 1 mg Heparin Sodium (Porcine) (Heparin) 5,000 units SC Q12 [facility] PRN Reason: Protocol Last Admin: 09/08/16 09:15 Dose: 5,000 units Ketorolac Tromethamine (Toradol) 15 mg IVP Q6 PRN PRN Reason: Pain, severe (8-10) Last Admin: 09/08/16 01:52 Dose: 15 mg Lorazepam (Ativan) 1 mg IVP Q4H PRN; Protocol PRN Reason: Symptoms of alcohol withdrawl Multivitamins (Thera Tab) 1 tab PO DAILY [facility] Last Admin: 09/08/16 09:15 Dose: 1 tab Pantoprazole Sodium (Protonix Ec Tab) 40 mg PO 0630 [facility] Last Admin: 09/08/16 06:30 Dose: 40 mg Thiamine HCl (Vitamin B1 Tab) 100 mg PO DAILY [facility] Last Admin: 09/08/16 09:16 Dose: 100 mg - Labs Labs: 09/08/16 07:57 09/08/16 07:57 Attending/Attestation - Attestation I have personally seen and examined this patient.: Yes I have fully participated in the care of the patient.: Yes I have reviewed all pertinent clinical information, including history, physical exam and plan: Yes Notes (Text): Patient was seen and examined with medical record specialist .Agreed with resident assessment and plan. 65 year old male who was admitted with ETOH withdrawal, Patient alcohol withdrawal are improved.Chest pain is muscular in nature, better with NSAID, no fracture of ribs on chest X ray.Patient could not go home as he is unsteady, PT evaluation has been requested, if OK by PT , can be discharged home. Management plan was discussed in detail with patient Education was provided.
[2016-09-09] MEDS: Pantoprazole 40 mg EC Tab PO SCH (06:36)
[2016-09-09 07:46] LABS: ADD MANUAL DIFF? NO
[2016-09-09 07:51] LABS: BASO # 0.04 K/mm3 (0.0-2.0); BASO % 0.5 % (0.0-3.0); EOS # 0.3 (0.0-0.7); EOS % 3.9 % (1.5-5.0); GRAN # 5.16 (1.4-6.5); GRAN % 67.3 % (50.0-68.0); HEMATOCRIT 37.8 % (42.0-52.0); LYMPH # 1.5 (1.2-3.4); LYMPH % 19.7 % (22.0-35.0); MEAN CELL VOLUME 95.7 fL (80.0-105.0); MEAN CORPUSCULAR HEMOGLOBIN 31.4 pg (25.0-35.0); MEAN CORPUSCULAR HGB CONC 32.8 g/dl (31.0-37.0); MONO # 0.7 (0.1-0.6); MONO % 8.6 % (1.0-6.0); PLATELET COUNT 276 10^3/uL (120.0-450.0); RED CELL DISTRIBUTION WIDTH 15.6 % (11.5-14.5); WHITE BLOOD COUNT 7.7 10^3/ul (4.5-11.0)
[2016-09-09 08:12] LABS: ALB/GLOB RATIO 1.1 (1.1-1.8); ALKALINE PHOSPHATASE 66 U/L (38-133); ALT/SGPT 21 U/L (7-56); AST/SGOT 30 U/L (15-59); BILIRUBIN,TOTAL 0.5 mg/dL (0.2-1.3); BLOOD UREA NITROGEN 19 mg/dL (7-21); CALCIUM 8.9 mg/dL (8.4-10.5); CARBON DIOXIDE 27 mmol/L (21-33); CHLORIDE 100 mmol/L (95-110); GFR AFRICAN-AMERICAN > 60; GLUCOSE,RANDOM 83 mg/dL (70-110); POTASSIUM 4.6 mmol/L (3.6-5.0); SODIUM 135 mmol/L (132-148); TOTAL PROTEIN 6.9 g/dL (5.8-8.3)
[2016-09-09] MEDS: Multivitamin Therapeutic Tab PO SCH (10:51)
[2016-09-09] MEDS: Alum-Mag Hydrox-Simethicone Susp (30 mL) PO PRN (11:49)
--- NOTE | 2016-09-09 14:25 | CP.PCM.PN ---
<Lisa Faria - Last Filed: 09/09/16 14:29> Subjective - Date & Time of Evaluation Date of Evaluation: 09/09/16 Time of Evaluation: 07:30 - Subjective Subjective: Pt seen and evaluated at the bedside. Pt is lying in bed, arms are tremulous and denies SOB. Pt is responding to some questions and not others. Pt is eating and had not had stool in 2 days. Afebrile overnight. Objective - Vital Signs/Intake and Output Vital Signs (last 24 hours): Temp Pulse Resp BP Pulse Ox 98.2 F 68 20 98/70 L 96 09/09/16 12:00 09/09/16 12:00 09/09/16 12:00 09/09/16 12:00 09/09/16 06:00 Intake and Output: 09/09/16 09/09/16 06:59 18:59 Intake Total 1320 Output Total 1575 Balance -255 - Medications Medications: Current Medications Acetaminophen (Tylenol 325mg Tab) 650 mg PO Q4 PRN PRN Reason: Pain, moderate (4-7) Last Admin: 09/07/16 15:40 Dose: 650 mg Al Hydrox/Mg Hydrox/Simethicone (Maalox Plus 30 Ml) 30 ml PO DAILY PRN PRN Reason: Indigestion / Heartburn Last Admin: 09/09/16 11:49 Dose: 30 ml Chlordiazepoxide (Librium) 10 mg PO Q12 [facility] PRN Reason: Protocol Last Admin: 09/09/16 10:51 Dose: 10 mg Famotidine (Pepcid) 20 mg PO 1000,2200 [facility] Last Admin: 09/09/16 10:51 Dose: 20 mg Folic Acid (Folic Acid) 1 mg PO DAILY [facility] Last Admin: 09/09/16 10:51 Dose: 1 mg Heparin Sodium (Porcine) (Heparin) 5,000 units SC Q12 [facility] PRN Reason: Protocol Last Admin: 09/09/16 10:51 Dose: 5,000 units Lorazepam (Ativan) 1 mg IVP Q6H PRN; Protocol PRN Reason: Symptoms of alcohol withdrawl Multivitamins (Thera Tab) 1 tab PO DAILY [facility] Last Admin: 09/09/16 10:51 Dose: 1 tab Pantoprazole Sodium (Protonix Ec Tab) 40 mg PO 0630 [facility] Last Admin: 09/09/16 06:36 Dose: Not Given Thiamine HCl (Vitamin B1 Tab) 100 mg PO DAILY [facility] Last Admin: 09/09/16 10:51 Dose: 100 mg Tramadol HCl (Ultram) 25 mg PO TID [facility] Last Admin: 09/09/16 11:50 Dose: 25 mg - Labs Labs: 09/09/16 07:30 09/09/16 07:30 - Constitutional Appears: Non-toxic, No Acute Distress - Eye Exam Eye Exam: EOMI, Normal appearance - ENT Exam ENT Exam: Mucous Membranes Moist, Normal Exam - Respiratory Exam Respiratory Exam: Clear to Ausculation Bilateral, NORMAL BREATHING PATTERN - Cardiovascular Exam Cardiovascular Exam: +S1, +S2. absent: Tachycardia - GI/Abdominal Exam GI & Abdominal Exam: Soft. absent: Tenderness - Exam External exam: absent: Ecchymosis, Erythema - Extremities Exam Extremities Exam: Normal Capillary Refill. absent: Tenderness - Neurological Exam Neurological Exam: Alert, Awake - Psychiatric Exam Psychiatric exam: Depressed. absent: Normal Mood - Skin Skin Exam: Intact, Normal Color Assessment and Plan - Assessment and Plan (Free Text) Plan: 65 yo M w/PMhx alcohol abuse, gerd, gastritis, presents from EMS for public intoxication. Alcohol level 410 on admission. Pt is admitted for ETOH intoxication and withdrawal symptoms. Patient unsteady on his feet today. ETOH withdrawal/intoxication: * Continue multivitamin/folic acid/thiamine * Continue CIWA protocol * Continue Librium to 10 mg Q12H, continue taper * Continue Ativan taper- decreased to 1mg Q6H * Monitor for seizure activity * PT evaluation and treatment * OOB to chair ordered and transfer order to med/surg placed. Chest pain: * Initial EKG showed Sinus rhythm with PSVC rate 83bpm * Cardiac enzymes negative x3 * Initial Xray showed no acute disease, COPD * Rib series ordered, negative for fractures [see full report] * Likely musculo-skeletal in nature * XR ordered and negative for frx * Tylenol prn minor pain * Tramadol 25mg PO TID prn severe pain Hx of GERD * Protonix 40mg PO daily * Maalox prn PPx measures: * heparin * protonix Assessment and plan discussed with attending physician. <Brenda Hernandez - Last Filed: 09/09/16 14:55> Objective - Vital Signs/Intake and Output Vital Signs (last 24 hours): Temp Pulse Resp BP Pulse Ox 98.2 F 68 20 98/70 L 96 09/09/16 12:00 09/09/16 12:00 09/09/16 12:00 09/09/16 12:00 09/09/16 06:00 Intake and Output: 09/09/16 09/09/16 06:59 18:59 Intake Total 1320 Output Total 1575 Balance -255 - Medications Medications: Current Medications Acetaminophen (Tylenol 325mg Tab) 650 mg PO Q4 PRN PRN Reason: Pain, moderate (4-7) Last Admin: 09/07/16 15:40 Dose: 650 mg Al Hydrox/Mg Hydrox/Simethicone (Maalox Plus 30 Ml) 30 ml PO DAILY PRN PRN Reason: Indigestion / Heartburn Last Admin: 09/09/16 11:49 Dose: 30 ml Chlordiazepoxide (Librium) 10 mg PO Q12 [facility] PRN Reason: Protocol Last Admin: 09/09/16 10:51 Dose: 10 mg Famotidine (Pepcid) 20 mg PO 1000,2200 [facility] Last Admin: 09/09/16 10:51 Dose: 20 mg Folic Acid (Folic Acid) 1 mg PO DAILY [facility] Last Admin: 09/09/16 10:51 Dose: 1 mg Heparin Sodium (Porcine) (Heparin) 5,000 units SC Q12 [facility] PRN Reason: Protocol Last Admin: 09/09/16 10:51 Dose: 5,000 units Lorazepam (Ativan) 1 mg IVP Q6H PRN; Protocol PRN Reason: Symptoms of alcohol withdrawl Multivitamins (Thera Tab) 1 tab PO DAILY [facility] Last Admin: 09/09/16 10:51 Dose: 1 tab Pantoprazole Sodium (Protonix Ec Tab) 40 mg PO 0630 [facility] Last Admin: 09/09/16 06:36 Dose: Not Given Thiamine HCl (Vitamin B1 Tab) 100 mg PO DAILY [facility] Last Admin: 09/09/16 10:51 Dose: 100 mg Tramadol HCl (Ultram) 25 mg PO TID [facility] Last Admin: 09/09/16 11:50 Dose: 25 mg - Labs Labs: 09/09/16 07:30 09/09/16 07:30 Attending/Attestation - Attestation I have personally seen and examined this patient.: Yes I have fully participated in the care of the patient.: Yes I have reviewed all pertinent clinical information, including history, physical exam and plan: Yes Notes (Text): 09/09/16 14:51 65 year old male with past medical history of chronic ETOH abuse who presented with alcohol intoxication. He was admitted for alcohol withdrawal which is improving as his librium and ativan are being tapered. Continue with multivitamin, folic acid and thiamine. He was counselled on alcohol abstinence. He complains of some chest wall discomfort, likely muscular in nature. Serial cardiac enzymes were negative and ACS was ruled out. Rib series were negative for fracture. He has flat affect on examination. Admits to depressed mood. Will request for psychiatry evaluation. He was seen by PT today. He continues to be unsteady at this time. Continue with physical therapy. Out of bed to chair with assistance. D/c planning once cleared by PT. Brenda Hernandez MD Hospitalist.
--- NOTE | 2016-09-09 15:53 | CON ---
DATE: 09/09/2016 HISTORY OF PRESENT ILLNESS: Shortly, patient is a 65-year-old male, [place] descent. The p atient has history of alcohol use disorder, multiple complications because of that problem. Most lik nilson, patient has mood disorder related to chronic alcoholism as well as possible substance induced mo od disorder. The patient also has history of being admitted to the psychiatric inpatient unit, histo ry of noncompliance with outpatient programs and follow ups. The patient lives in [place] with his m other as well as sister. The patient was admitted on the medical floor for evaluation of alcohol wit hdrawal symptoms after patient was found intoxicated in public. Psych consult was called for evaluat ion of mood symptoms and possible alcohol withdrawal symptoms. The patient was seen and examined tod ay with the medical office assistant. The patient presented to be alert. The patient not willing to partici sarabia in interview that much. Majority of the answers were "I don't know." The patient is [place] pinky kendall and this junior copywriter utilized [place] journalism professor #[id number]. The patient reported that he was drinking o n daily basis, about 1 liter of vodka. The patient reported that at present moment he does not feel good because he has pain all over his body. As per medical team, patient complained of the chest denver n earlier. That is why he was not discharged. The patient reported that he has thoughts of dying be cause of his pain. The patient denied any intent or plan to kill himself. The patient denied hearin g voices or seeing things. The patient does not present to be psychotic. The patient complained of anxiety which could be related to withdrawal symptoms. The patient does not have clear explanation w hy he did not follow up with outpatient psychiatrist, as well as does not have clear explanation why he keeps drinking. The patient also not able to have explanation of why he refused to have physical therapy. This junior copywriter had prolonged conversation with the nursing staff. The patient does not have a ny behavioral disturbances. The patient sleeps through the night. The patient has good appetite and asks for double portions. There are no signs of depression. The patient did not verbalize any thou ghts of killing himself, did not verbalize thoughts of killing others. The patient expressed his int erest to go to inpatient rehab. This junior copywriter spoke to social sciences instructor, Marion Murray. Will ask to prov barby information about [facility]. Besides that, there are no acute changes with the patient's pr esentation. VITAL SIGNS: Temperature 98.2, pulse is 68, blood pressure 98/70, respirations ____, saturation 97. MEDICATIONS: Reviewed. The patient is on Tylenol, ____. The patient is on Librium 10 mg q.12 hours , Pepcid 20 mg twice a day, folic acid, heparin. Vistaril will be recommended 25 mg q.8 hours as nee ded for anxiety. The patient is on p.r.n. order of Ativan, multivitamins, Protonix, thiamine, and tr amadol. LABORATORY DATA: Labs reviewed. Most recent was from today. Hemoglobin and hematocrit 12.4 and 37. 8. Chemistry also reviewed, within normal limits. Toxicology: Benzodiazepines were positive as wel l as alcohol at the time of admission was 410. PAST PSYCHIATRIC HISTORY: The patient had a few admissions to the psychiatric inpatient unit, most r ecent was in 04/2015. MENTAL STATUS EXAMINATION: The patient appears older than his chronological age, has no deformity fr om the old trauma. The patient is thin built. Has ecchymosis under his eye. Personal hygiene is fa r from being ideal, but acceptable. Speech was normal rate, tone, quality, and quantity. Mood descr ibed "I have pain all over the body. That's why I feel depressed." Affect was constricted. Thought process was coherent and goal directed. Thought content: The patient denied visual, auditory, or t actile hallucinations. Denied paranoid ideation. The patient denied thoughts of harming himself or others, denied intent or plan. But, passive wish to be because of pain all over his body. Insi ght and judgment are limited into his alcohol addiction, but is improving because patient verbalized interest to go to inpatient rehab. Impulses are well controlled. IMPRESSION: Rule out substance-induced mood disorder. Rule out alcohol withdrawal, but is improving . Rule out substance-induced anxiety disorder. The patient has alcohol use disorder. The patient h as multiple medical problems because of chronic alcohol consumption. Please see medical team note fo r more detailed information. PLAN: The patient does not have any signs of withdrawal symptoms, fine tremor in upper extremities, vital signs are within normal limits. Physical therapy is recommended. For anxiety, Vistaril could be given as 25 mg q.8 hours as needed. Family involvement. The patient expressed his interest to go to inpatient rehab for alcohol. optical worker involved. Besides that, there is nothing else this w chris could implement into the patient treatment. Thank you very much for letting me participate in care of your patient. This junior copywriter will sign off. Emmie Cardona MD cc: [id number] TT: 09/09/2016 15:52:51 Confirmation # [id number] Dictation # [id number]
[2016-09-10 08:06] LABS: ADD MANUAL DIFF? NO
[2016-09-10 08:09] LABS: BASO # 0.02 K/mm3 (0.0-2.0); BASO % 0.4 % (0.0-3.0); EOS # 0.3 (0.0-0.7); EOS % 4.6 % (1.5-5.0); GRAN # 2.96 (1.4-6.5); HEMATOCRIT 39.6 % (42.0-52.0); LYMPH # 1.9 (1.2-3.4); LYMPH % 33.3 % (22.0-35.0); MEAN CELL VOLUME 97.1 fL (80.0-105.0); MEAN CORPUSCULAR HEMOGLOBIN 31.6 pg (25.0-35.0); MEAN CORPUSCULAR HGB CONC 32.6 g/dl (31.0-37.0); MEAN PLATELET VOLUME 9.2 fl (7.0-11.0); MONO # 0.6 (0.1-0.6); MONO % 9.7 % (1.0-6.0); PLATELET COUNT 265 10^3/uL (120.0-450.0); RED CELL DISTRIBUTION WIDTH 15.6 % (11.5-14.5); WHITE BLOOD COUNT 5.7 10^3/ul (4.5-11.0)
[2016-09-10 08:23] LABS: ALB/GLOB RATIO 1.2 (1.1-1.8); ALKALINE PHOSPHATASE 68 U/L (38-133); ALT/SGPT 23 U/L (7-56); AST/SGOT 28 U/L (15-59); BILIRUBIN,TOTAL 0.5 mg/dL (0.2-1.3); BLOOD UREA NITROGEN 15 mg/dL (7-21); CALCIUM 9.4 mg/dL (8.4-10.5); CARBON DIOXIDE 27 mmol/L (21-33); CHLORIDE 100 mmol/L (95-110); GFR AFRICAN-AMERICAN > 60; GLUCOSE,RANDOM 77 mg/dL (70-110); POTASSIUM 4.3 mmol/L (3.6-5.0); SODIUM 137 mmol/L (132-148); TOTAL PROTEIN 7.1 g/dL (5.8-8.3)
[2016-09-10] MEDS: Multivitamin Therapeutic Tab PO SCH (10:34)
--- NOTE | 2016-09-10 14:54 | CP.PCM.PN ---
<Lisa Faria - Last Filed: 09/10/16 14:56> Subjective - Date & Time of Evaluation Date of Evaluation: 09/10/16 Time of Evaluation: 07:30 - Subjective Subjective: Pt seen and evaluated at bedside. Pt deneis SOB, n/v, and continues to have R chest pain. Afebrile overnight. Objective - Vital Signs/Intake and Output Vital Signs (last 24 hours): Temp Pulse Resp BP Pulse Ox 99 F 57 L 18 97/64 L 97 09/10/16 08:00 09/10/16 08:00 09/10/16 08:00 09/10/16 08:00 09/10/16 08:00 Intake and Output: 09/10/16 09/10/16 06:59 18:59 Intake Total 1260 1680 Output Total 1700 1625 Balance -440 55 - Medications Medications: Current Medications Acetaminophen (Tylenol 325mg Tab) 650 mg PO Q4 PRN PRN Reason: Pain, moderate (4-7) Last Admin: 09/10/16 01:04 Dose: 650 mg Al Hydrox/Mg Hydrox/Simethicone (Maalox Plus 30 Ml) 30 ml PO DAILY PRN PRN Reason: Indigestion / Heartburn Last Admin: 09/09/16 11:49 Dose: 30 ml Famotidine (Pepcid) 20 mg PO 1000,2200 [facility] Last Admin: 09/10/16 10:34 Dose: 20 mg Folic Acid (Folic Acid) 1 mg PO DAILY [facility] Last Admin: 09/10/16 10:34 Dose: 1 mg Heparin Sodium (Porcine) (Heparin) 5,000 units SC Q12 [facility] PRN Reason: Protocol Last Admin: 09/10/16 10:33 Dose: 5,000 units Hydroxyzine Pamoate (Vistaril) 25 mg PO Q8 PRN; Protocol PRN Reason: Anxiety Last Admin: 09/10/16 03:33 Dose: 25 mg Lorazepam (Ativan) 0.5 mg PO TID PRN; Protocol PRN Reason: Symptoms of alcohol withdrawl Multivitamins (Thera Tab) 1 tab PO DAILY [facility] Last Admin: 09/10/16 10:34 Dose: 1 tab Pantoprazole Sodium (Protonix Ec Tab) 40 mg PO 0630 [facility] Last Admin: 09/09/16 06:36 Dose: Not Given Thiamine HCl (Vitamin B1 Tab) 100 mg PO DAILY [facility] Last Admin: 09/10/16 10:34 Dose: 100 mg Tramadol HCl (Ultram) 25 mg PO TID [facility] Last Admin: 09/10/16 10:34 Dose: 25 mg - Labs Labs: 09/10/16 07:36 09/10/16 07:36 - Additional Findings Additional findings: - Constitutional Appears: Non-toxic, No Acute Distress - Eye Exam Eye Exam: EOMI, Normal appearance - ENT Exam ENT Exam: Mucous Membranes Moist, Normal Exam - Respiratory Exam Respiratory Exam: Clear to Ausculation Bilateral, NORMAL BREATHING PATTERN - Cardiovascular Exam Cardiovascular Exam: bradycardia +S1, +S2. - GI/Abdominal Exam GI & Abdominal Exam: Soft. absent: Tenderness - Exam External exam: absent: Ecchymosis, Erythema - Extremities Exam Extremities Exam: Normal Capillary Refill. absent: Tenderness - Neurological Exam Neurological Exam: Alert, Awake - Psychiatric Exam Psychiatric exam: Depressed. absent: Normal Mood - Skin Skin Exam: Intact, Normal Color Assessment and Plan - Assessment and Plan (Free Text) Plan: 65 yo M w/PMhx alcohol abuse, gerd, gastritis, presents from EMS for public intoxication. Alcohol level 410 on admission. Pt is admitted for ETOH intoxication and withdrawal symptoms. Patient unsteady on his feet today. ETOH withdrawal/intoxication: * Continue multivitamin/folic acid/thiamine * Continue CIWA protocol * Continue Ativan taper- decreased to 0.5mg PO TID prn * Monitor for seizure activity * PT evaluation and treatment * OOB to chair ordered and transfer order to med/surg placed. Chest pain: * Initial EKG showed Sinus rhythm with PSVC rate 83bpm * Cardiac enzymes negative x3 * Initial Xray showed no acute disease, COPD * Rib series ordered, negative for fractures [see full report] * Likely musculo-skeletal in nature * XR ordered and negative for frx * Tylenol prn minor pain * Tramadol 25mg PO TID prn severe pain Hx of GERD * Protonix 40mg PO daily * Maalox prn PPx measures: * heparin * protonix Assessment and plan discussed with attending physician. <Brenda Hernandez - Last Filed: 09/10/16 16:32> Objective - Vital Signs/Intake and Output Vital Signs (last 24 hours): Temp Pulse Resp BP Pulse Ox 99 F 57 L 18 97/64 L 97 09/10/16 08:00 09/10/16 08:00 09/10/16 08:00 09/10/16 08:00 09/10/16 08:00 Intake and Output: 09/10/16 09/10/16 06:59 18:59 Intake Total 1260 1680 Output Total 1700 1625 Balance -440 55 - Medications Medications: Current Medications Acetaminophen (Tylenol 325mg Tab) 650 mg PO Q4 PRN PRN Reason: Pain, moderate (4-7) Last Admin: 09/10/16 01:04 Dose: 650 mg Al Hydrox/Mg Hydrox/Simethicone (Maalox Plus 30 Ml) 30 ml PO DAILY PRN PRN Reason: Indigestion / Heartburn Last Admin: 09/09/16 11:49 Dose: 30 ml Famotidine (Pepcid) 20 mg PO 1000,2200 [facility] Last Admin: 09/10/16 10:34 Dose: 20 mg Folic Acid (Folic Acid) 1 mg PO DAILY [facility] Last Admin: 09/10/16 10:34 Dose: 1 mg Heparin Sodium (Porcine) (Heparin) 5,000 units SC Q12 [facility] PRN Reason: Protocol Last Admin: 09/10/16 10:33 Dose: 5,000 units Hydroxyzine Pamoate (Vistaril) 25 mg PO Q8 PRN; Protocol PRN Reason: Anxiety Last Admin: 09/10/16 03:33 Dose: 25 mg Lorazepam (Ativan) 0.5 mg PO TID PRN; Protocol PRN Reason: Symptoms of alcohol withdrawl Multivitamins (Thera Tab) 1 tab PO DAILY [facility] Last Admin: 09/10/16 10:34 Dose: 1 tab Pantoprazole Sodium (Protonix Ec Tab) 40 mg PO 0630 [facility] Last Admin: 09/09/16 06:36 Dose: Not Given Thiamine HCl (Vitamin B1 Tab) 100 mg PO DAILY [facility] Last Admin: 09/10/16 10:34 Dose: 100 mg Tramadol HCl (Ultram) 25 mg PO TID [facility] Last Admin: 09/10/16 16:10 Dose: 25 mg - Labs Labs: 09/10/16 07:36 09/10/16 07:36 Attending/Attestation - Attestation I have personally seen and examined this patient.: Yes I have fully participated in the care of the patient.: Yes I have reviewed all pertinent clinical information, including history, physical exam and plan: Yes Notes (Text): 09/10/16 16:30 65 year old male with past medical history of chronic ETOH abuse who presented with alcohol intoxication and then admitted for alcohol withdrawal. This has improved and his ativan is being tapered. He is on multivitamin, folic acid and thiamine. He was counselled on alcohol abstinence. He continues to have weakness and gait instability. PT is following. His abdominal/chest pain has improved. Serial cardiac enzymes were negative and ACS was ruled out. Rib series were negative for fracture. Psychiatry evaluation was appreciated who added vistaril prn. D/c planning once cleared by PT. Brenda Hernandez MD Hospitalist.
[2016-09-11] MEDS: Pantoprazole 40 mg EC Tab PO SCH ×2 (03:56→05:37)
[2016-09-11] MEDS: Multivitamin Therapeutic Tab PO SCH (11:01)
--- NOTE | 2016-09-11 15:26 | CP.PCM.PN ---
<Lisa Faria - Last Filed: 09/11/16 15:35> Subjective - Date & Time of Evaluation Date of Evaluation: 09/11/16 Time of Evaluation: 07:30 - Subjective Subjective: Pt seen and evaluated at bedside. Pt denies SOB, vomiting, urinary symptoms. C /O of constant and unchanged R chest pain. BM yesterday. Afebrile overnight Objective - Vital Signs/Intake and Output Vital Signs (last 24 hours): Temp Pulse Resp BP Pulse Ox 98.1 F 60 20 114/76 97 09/11/16 08:57 09/11/16 08:57 09/11/16 08:57 09/11/16 08:57 09/11/16 08:57 Intake and Output: 09/11/16 09/11/16 06:59 18:59 Intake Total 600 840 Output Total 2025 800 Balance -1425 40 - Medications Medications: Current Medications Acetaminophen (Tylenol 325mg Tab) 650 mg PO Q4 PRN PRN Reason: Pain, moderate (4-7) Last Admin: 09/11/16 02:51 Dose: 650 mg Al Hydrox/Mg Hydrox/Simethicone (Maalox Plus 30 Ml) 30 ml PO DAILY PRN PRN Reason: Indigestion / Heartburn Last Admin: 09/09/16 11:49 Dose: 30 ml Famotidine (Pepcid) 20 mg PO 1000,2200 [facility] Last Admin: 09/11/16 10:06 Dose: 20 mg Folic Acid (Folic Acid) 1 mg PO DAILY [facility] Last Admin: 09/11/16 10:06 Dose: 1 mg Heparin Sodium (Porcine) (Heparin) 5,000 units SC Q12 [facility] PRN Reason: Protocol Last Admin: 09/11/16 10:05 Dose: 5,000 units Hydroxyzine Pamoate (Vistaril) 25 mg PO Q8 PRN; Protocol PRN Reason: Anxiety Last Admin: 09/10/16 21:39 Dose: 25 mg Lorazepam (Ativan) 0.5 mg PO TID PRN; Protocol PRN Reason: Symptoms of alcohol withdrawl Multivitamins (Thera Tab) 1 tab PO DAILY [facility] Last Admin: 09/11/16 11:01 Dose: 1 tab Pantoprazole Sodium (Protonix Ec Tab) 40 mg PO 0630 [facility] Last Admin: 09/11/16 05:37 Dose: 40 mg Thiamine HCl (Vitamin B1 Tab) 100 mg PO DAILY [facility] Last Admin: 09/11/16 10:06 Dose: 100 mg Tramadol HCl (Ultram) 25 mg PO TID [facility] Last Admin: 09/11/16 13:34 Dose: 25 mg - Labs Labs: 09/10/16 07:36 09/10/16 07:36 - Eye Exam Eye Exam: EOMI, Normal appearance Pupil Exam: NORMAL ACCOMODATION, PERRL - Respiratory Exam Respiratory Exam: Clear to Ausculation Bilateral, NORMAL BREATHING PATTERN - Cardiovascular Exam Cardiovascular Exam: +S1, +S2. absent: Bradycardia - GI/Abdominal Exam GI & Abdominal Exam: Soft. absent: Tenderness - Exam External exam: absent: Ecchymosis, Erythema - Neurological Exam Neurological Exam: Alert, Awake - Skin Skin Exam: Dry, Intact Assessment and Plan - Assessment and Plan (Free Text) Plan: 65 yo M w/PMhx alcohol abuse, gerd, gastritis, presents from EMS for public intoxication. Alcohol level 410 on admission. Pt is admitted for ETOH intoxication and withdrawal symptoms. Patient remains unsteady on his feet. ETOH withdrawal/intoxication: * Continue multivitamin/folic acid/thiamine * Continue CIWA protocol * Continue Ativan taper- decreased to 0.5mg PO TID prn * Monitor for seizure activity * PT evaluation and treatment * OOB to chair ordered Chest pain: * Initial EKG showed Sinus rhythm with PSVC rate 83bpm * Cardiac enzymes negative x3 * Initial Xray showed no acute disease, COPD * Rib series ordered, negative for fractures [see full report] * Likely musculo-skeletal in nature * XR ordered and negative for frx * Tylenol prn minor pain * Tramadol 25mg PO TID prn severe pain * Chest CT ordered today Hx of GERD * Protonix 40mg PO daily * Maalox prn PPx measures: * heparin * protonix * Assessment and plan discussed with attending physician. <Brenda Hernandez - Last Filed: 09/11/16 15:55> Objective - Vital Signs/Intake and Output Vital Signs (last 24 hours): Temp Pulse Resp BP Pulse Ox 98.1 F 60 20 114/76 97 09/11/16 08:57 09/11/16 08:57 09/11/16 08:57 09/11/16 08:57 09/11/16 08:57 Intake and Output: 09/11/16 09/11/16 06:59 18:59 Intake Total 600 840 Output Total 2025 800 Balance -1425 40 - Medications Medications: Current Medications Acetaminophen (Tylenol 325mg Tab) 650 mg PO Q4 PRN PRN Reason: Pain, moderate (4-7) Last Admin: 09/11/16 02:51 Dose: 650 mg Al Hydrox/Mg Hydrox/Simethicone (Maalox Plus 30 Ml) 30 ml PO DAILY PRN PRN Reason: Indigestion / Heartburn Last Admin: 09/09/16 11:49 Dose: 30 ml Famotidine (Pepcid) 20 mg PO 1000,2200 [facility] Last Admin: 09/11/16 10:06 Dose: 20 mg Folic Acid (Folic Acid) 1 mg PO DAILY [facility] Last Admin: 09/11/16 10:06 Dose: 1 mg Heparin Sodium (Porcine) (Heparin) 5,000 units SC Q12 [facility] PRN Reason: Protocol Last Admin: 09/11/16 10:05 Dose: 5,000 units Hydroxyzine Pamoate (Vistaril) 25 mg PO Q8 PRN; Protocol PRN Reason: Anxiety Last Admin: 09/10/16 21:39 Dose: 25 mg Lorazepam (Ativan) 0.5 mg PO TID PRN; Protocol PRN Reason: Symptoms of alcohol withdrawl Multivitamins (Thera Tab) 1 tab PO DAILY [facility] Last Admin: 09/11/16 11:01 Dose: 1 tab Pantoprazole Sodium (Protonix Ec Tab) 40 mg PO 0630 [facility] Last Admin: 09/11/16 05:37 Dose: 40 mg Thiamine HCl (Vitamin B1 Tab) 100 mg PO DAILY [facility] Last Admin: 09/11/16 10:06 Dose: 100 mg Tramadol HCl (Ultram) 25 mg PO TID [facility] Last Admin: 09/11/16 13:34 Dose: 25 mg - Labs Labs: 09/10/16 07:36 09/10/16 07:36 Attending/Attestation - Attestation I have personally seen and examined this patient.: Yes I have fully participated in the care of the patient.: Yes I have reviewed all pertinent clinical information, including history, physical exam and plan: Yes Notes (Text): 09/11/16 15:50 65 year old male with past medical history of chronic ETOH abuse who presented with alcohol intoxication and then admitted for alcohol withdrawal. This has improved with tapering doses of ativan. He is on multivitamin, folic acid and thiamine. He was counselled on alcohol abstinence. He is being followed by PT for gait instability. Today he refused to ambulate with physical therapist complaining of dizziness and tremor. We will request for psychiatry follow up. Today he complains of persistent chest wall pain. Serial cardiac enzymes were negative and ACS was ruled out. Rib series were negative for fracture. He is on tramadol prn. Will obtain CT chest. D/c planning once cleared by PT. Brenda Hernandez MD Hospitalist.
[2016-09-12] MEDS: Pantoprazole 40 mg EC Tab PO SCH (05:31)
[2016-09-12] MEDS: Alum-Mag Hydrox-Simethicone Susp (30 mL) PO PRN ×2 (09:49→16:07)
[2016-09-12] MEDS: Multivitamin Therapeutic Tab PO SCH (09:49)
--- NOTE | 2016-09-12 10:36 | CT ---
PROCEDURE: CT Chest without contrast HISTORY: R chest pain COMPARISON: None. TECHNIQUE: Contiguous axial images were obtained through the chest without intravenous contrast enhancement. Sagittal and coronal reconstructions were performed. Radiation dose (DLP): 254 mGy-cm. This CT exam was performed using one or more of the following dose reduction techniques: Automated exposure control, adjustment of the mA and/or kV according to patient size, and/or use of iterative reconstruction technique. FINDINGS: LUNGS: Multiple bulla are seen in both lung apices. Emphysematous changes are seen throughout the lungs especially the upper lobes. There is no mass or infiltrate. MEDIASTINUM: Unremarkable thoracic aorta. No aneurysm. Normal sized heart. Main pulmonary artery unremarkable. No vascular congestion. No lymphadenopathy. PLEURA: No pleural fluid. No pneumothorax. BONES: No fracture. No destructive lesion. UPPER ABDOMEN: Grossly unremarkable. OTHER FINDINGS: None. IMPRESSION: Multiple bulla are seen in both lung apices. Emphysematous changes are seen throughout the lungs especially the upper lobes. There is no mass or infiltrate.
--- NOTE | 2016-09-12 12:28 | CP.PCM.PN ---
<Lisa Faria - Last Filed: 09/12/16 16:30> Subjective - Date & Time of Evaluation Date of Evaluation: 09/12/16 Time of Evaluation: 09:05 - Subjective Subjective: Pt seen and evaluated at the bedside. Patient is eating, and denies N/V. No hand tremors observed. Afebrile overnight and Pt went for chest CT earlier in morning. Objective - Vital Signs/Intake and Output Vital Signs (last 24 hours): Temp Pulse Resp BP Pulse Ox 97.9 F 61 20 102/59 L 96 09/12/16 09:06 09/12/16 09:06 09/12/16 09:06 09/12/16 09:06 09/12/16 09:06 Intake and Output: 09/12/16 09/12/16 06:59 18:59 Intake Total 840 Output Total 200 Balance 640 - Medications Medications: Current Medications Acetaminophen (Tylenol 325mg Tab) 650 mg PO Q4 PRN PRN Reason: Pain, moderate (4-7) Last Admin: 09/12/16 09:49 Dose: 650 mg Al Hydrox/Mg Hydrox/Simethicone (Maalox Plus 30 Ml) 30 ml PO DAILY PRN PRN Reason: Indigestion / Heartburn Last Admin: 09/12/16 09:49 Dose: 30 ml Famotidine (Pepcid) 20 mg PO 1000,2200 [facility] Last Admin: 09/12/16 09:49 Dose: 20 mg Folic Acid (Folic Acid) 1 mg PO DAILY [facility] Last Admin: 09/12/16 09:49 Dose: 1 mg Heparin Sodium (Porcine) (Heparin) 5,000 units SC Q12 [facility] PRN Reason: Protocol Last Admin: 09/12/16 10:00 Dose: 5,000 units Hydroxyzine Pamoate (Vistaril) 50 mg PO Q8 PRN; Protocol PRN Reason: Anxiety Ibuprofen (Motrin Tab) 400 mg PO Q6H PRN PRN Reason: Pain, moderate (4-7) Last Admin: 09/12/16 11:06 Dose: 400 mg Multivitamins (Thera Tab) 1 tab PO DAILY [facility] Last Admin: 09/12/16 09:49 Dose: 1 tab Pantoprazole Sodium (Protonix Ec Tab) 40 mg PO 0630 [facility] Last Admin: 09/12/16 05:31 Dose: 40 mg Thiamine HCl (Vitamin B1 Tab) 100 mg PO DAILY [facility] Last Admin: 09/12/16 09:49 Dose: 100 mg - Labs Labs: 09/10/16 07:36 09/10/16 07:36 - Constitutional Appears: Non-toxic, No Acute Distress - Eye Exam Eye Exam: EOMI, Normal appearance - ENT Exam ENT Exam: Mucous Membranes Moist, Normal Exam - Respiratory Exam Respiratory Exam: Clear to Ausculation Bilateral, NORMAL BREATHING PATTERN - Cardiovascular Exam Cardiovascular Exam: +S1, +S2. absent: Tachycardia - GI/Abdominal Exam GI & Abdominal Exam: Soft. absent: Tenderness - Exam External exam: absent: Erythema, Lacerations - Extremities Exam Extremities Exam: Normal Capillary Refill. absent: Pedal Edema, Tenderness - Neurological Exam Neurological Exam: Alert, Awake - Skin Skin Exam: Intact, Normal Color Assessment and Plan - Assessment and Plan (Free Text) Plan: 65 yo M w/PMhx alcohol abuse, gerd, gastritis, presents from EMS for public intoxication. Alcohol level 410 on admission. Pt is admitted for ETOH intoxication and withdrawal symptoms. Patient remains unsteady on his feet. ETOH withdrawal/intoxication: * Continue multivitamin/folic acid/thiamine * PT evaluation and treatment * OOB to chair ordered Chest pain: * Initial EKG showed Sinus rhythm with PSVC rate 83bpm * Cardiac enzymes negative x3 * Initial Xray showed no acute disease, COPD * Rib series ordered, negative for fractures [see full report] * Likely musculo-skeletal in nature * XR ordered and negative for frx * Tylenol and motrin prn for minor pain * Chest CT, no contributory findings Depression, anxiety consult Dr. Cardona, help appreciated Vistaril increased today Hx of GERD * Protonix 40mg PO daily * Maalox prn PPx measures: * heparin * protonix * Assessment and plan discussed with attending physician. <Christy GOYAL,Lauren - Last Filed: 09/12/16 17:38> Objective - Vital Signs/Intake and Output Vital Signs (last 24 hours): Temp Pulse Resp BP Pulse Ox 97 F L 62 20 110/64 97 09/12/16 16:00 09/12/16 16:00 09/12/16 16:00 09/12/16 16:00 09/12/16 16:00 Intake and Output: 09/12/16 09/12/16 06:59 18:59 Intake Total 840 1320 Output Total 200 800 Balance 640 520 - Medications Medications: Current Medications Acetaminophen (Tylenol 325mg Tab) 650 mg PO Q4 PRN PRN Reason: Pain, moderate (4-7) Last Admin: 09/12/16 09:49 Dose: 650 mg Al Hydrox/Mg Hydrox/Simethicone (Maalox Plus 30 Ml) 30 ml PO DAILY PRN PRN Reason: Indigestion / Heartburn Last Admin: 09/12/16 16:07 Dose: 30 ml Famotidine (Pepcid) 20 mg PO 1000,2200 [facility] Last Admin: 09/12/16 09:49 Dose: 20 mg Folic Acid (Folic Acid) 1 mg PO DAILY [facility] Last Admin: 09/12/16 09:49 Dose: 1 mg Heparin Sodium (Porcine) (Heparin) 5,000 units SC Q12 [facility] PRN Reason: Protocol Last Admin: 09/12/16 10:00 Dose: 5,000 units Hydroxyzine Pamoate (Vistaril) 50 mg PO Q8 PRN; Protocol PRN Reason: Anxiety Last Admin: 09/12/16 12:38 Dose: 50 mg Ibuprofen (Motrin Tab) 400 mg PO Q6H PRN PRN Reason: Pain, moderate (4-7) Last Admin: 09/12/16 11:06 Dose: 400 mg Multivitamins (Thera Tab) 1 tab PO DAILY [facility] Last Admin: 09/12/16 09:49 Dose: 1 tab Pantoprazole Sodium (Protonix Ec Tab) 40 mg PO 0630 [facility] Last Admin: 09/12/16 05:31 Dose: 40 mg Thiamine HCl (Vitamin B1 Tab) 100 mg PO DAILY [facility] Last Admin: 09/12/16 09:49 Dose: 100 mg - Labs Labs: 09/10/16 07:36 09/10/16 07:36 Attending/Attestation - Attestation I have personally seen and examined this patient.: Yes I have fully participated in the care of the patient.: Yes I have reviewed all pertinent clinical information, including history, physical exam and plan: Yes Notes (Text): Patient was seen and examined with medical assistant prn .Agreed with resident assessment and plan. 65 Yrs old male with history of alcohol abuse and atypical chest pain , CT chest negative for any acute abnormality, will avoid Narcotic as paient is not participating in physical therapy.He is at [place] and is not in any alcohol withdrawal, once cleared by Physical therapy, will discharge home. Management plan was discussed in detail with patient Education was provided.
--- NOTE | 2016-09-12 16:04 | PN ---
DATE: 09/12/2016 This software writer signed off from this case. Medical team consulted this software writer again for evaluation of an xiety symptoms. The patient was seen and examined today. The patient presented well, observed eatin g with good appetite, ate 100% of his meal. The patient reported that he feels anxious, but he has r elief of the symptoms on Vistaril. This software writer offered to increase the dose of Vistaril. The patien t is willing to do so. The patient denied feeling hopeless or helpless. Denied thoughts of harming himself or others, denied intent or plan. The patient has no behavioral problems. VITAL SIGNS: Reviewed, seem to be stable. MEDICATIONS: Reviewed. As this software writer mentioned above, Vistaril will be increased to 50 mg q. 8 tremaine rs as needed for anxiety. LABORATORY DATA: Reviewed. Seems to be stable. Most recent was from the . MENTAL STATUS EXAMINATION: The patient appears to be alert and oriented, pleasant, cooperative. No psychosis. Mood described as nervous. Affect was constricted, but reactive, mood congruent. Though t process was coherent and goal directed. Thought content: The patient denied visual, auditory, tac tile hallucinations. Denied paranoid ideations. The patient denied thoughts of harming himself or o thers, denied intent or plan. Insight and judgment are limited, but improving. Impulses are well pr edictable. IMPRESSION: Alcohol use disorder, rule out substance-induced anxiety disorder, alcohol withdrawal sy mptoms are better, multiple medical issues, please see medical team notes for more detailed informati on. PLAN: Risperdal was increased. Physical therapy recommended. The patient seemed not to be a danger to self or others. This software writer will sign off. Should you have any questions, give me a call back. The patient would benefit from AA meeting meeting. Also, follow up with [facility] program or rehab . Should you have any questions, give me a call back. Emmie Cardona MD cc: [id number] TT: 09/12/2016 16:03:21 Confirmation # [id number] Dictation # [id number]
[2016-09-13] MEDS: Pantoprazole 40 mg EC Tab PO SCH (06:41)
[2016-09-13] MEDS: Multivitamin Therapeutic Tab PO SCH (09:24)
--- NOTE | 2016-09-13 13:15 | CP.PCM.PN ---
<Lisa Faria - Last Filed: 09/13/16 15:12> Subjective - Date & Time of Evaluation Date of Evaluation: 09/13/16 Time of Evaluation: 07:55 - Subjective Subjective: Pt seen and evaluated at bedside. Pt has Rt chest pain unchanged from day before. Denies SOB, N/V. Is eating. Afebrile overnight. Objective - Vital Signs/Intake and Output Vital Signs (last 24 hours): Temp Pulse Resp BP Pulse Ox 97.9 F 61 18 102/62 95 09/13/16 08:00 09/13/16 08:00 09/13/16 08:00 09/13/16 08:00 09/13/16 08:00 Intake and Output: 09/13/16 09/13/16 06:59 18:59 Intake Total 1200 Output Total 1050 Balance 150 - Medications Medications: Current Medications Acetaminophen (Tylenol 325mg Tab) 650 mg PO Q4 PRN PRN Reason: Pain, moderate (4-7) Last Admin: 09/12/16 09:49 Dose: 650 mg Al Hydrox/Mg Hydrox/Simethicone (Maalox Plus 30 Ml) 30 ml PO DAILY PRN PRN Reason: Indigestion / Heartburn Last Admin: 09/12/16 16:07 Dose: 30 ml Famotidine (Pepcid) 20 mg PO 1000,2200 [facility] Last Admin: 09/13/16 09:24 Dose: 20 mg Folic Acid (Folic Acid) 1 mg PO DAILY [facility] Last Admin: 09/13/16 09:24 Dose: 1 mg Heparin Sodium (Porcine) (Heparin) 5,000 units SC Q12 [facility] PRN Reason: Protocol Last Admin: 09/13/16 09:25 Dose: 5,000 units Hydroxyzine Pamoate (Vistaril) 50 mg PO Q8 PRN; Protocol PRN Reason: Anxiety Last Admin: 09/12/16 21:54 Dose: 50 mg Ibuprofen (Motrin Tab) 400 mg PO Q6H PRN PRN Reason: Pain, moderate (4-7) Last Admin: 09/13/16 09:28 Dose: 400 mg Multivitamins (Thera Tab) 1 tab PO DAILY [facility] Last Admin: 09/13/16 09:24 Dose: 1 tab Pantoprazole Sodium (Protonix Ec Tab) 40 mg PO 0630 [facility] Last Admin: 09/13/16 06:41 Dose: 40 mg Thiamine HCl (Vitamin B1 Tab) 100 mg PO DAILY [facility] Last Admin: 09/13/16 09:24 Dose: 100 mg - Labs Labs: 09/10/16 07:36 09/10/16 07:36 - Constitutional Appears: Non-toxic, No Acute Distress - ENT Exam ENT Exam: Mucous Membranes Moist, Normal Exam - Respiratory Exam Respiratory Exam: Clear to Ausculation Bilateral, NORMAL BREATHING PATTERN - Cardiovascular Exam Cardiovascular Exam: +S1, +S2. absent: Bradycardia - GI/Abdominal Exam GI & Abdominal Exam: Soft. absent: Tenderness - Exam External exam: absent: Ecchymosis, Erythema - Extremities Exam Extremities Exam: absent: Pedal Edema, Tenderness - Back Exam Back Exam: absent: CVA tenderness (L), CVA tenderness (R) - Neurological Exam Neurological Exam: Alert, Awake - Skin Skin Exam: Intact, Normal Color Assessment and Plan - Assessment and Plan (Free Text) Plan: 65 yo M w/PMhx alcohol abuse, gerd, gastritis, presents from EMS for public intoxication. Alcohol level 410 on admission. Pt is admitted for ETOH intoxication and withdrawal symptoms. ETOH withdrawal/intoxication: * Continue multivitamin/folic acid/thiamine * PT evaluation and treatment * OOB to chair ordered Chest pain: * Initial EKG showed Sinus rhythm with PSVC rate 83bpm * Cardiac enzymes negative x3 * Initial Xray showed no acute disease, COPD * Rib series ordered, negative for fractures [see full report] * Likely musculo-skeletal in nature * XR ordered and negative for frx * Tylenol and motrin prn for minor pain * Chest CT, no contributory findings * lidocaine patch Depression, anxiety consult Dr. Cardona, help appreciated Vistaril 50mg q8 PRN Hx of GERD * Protonix 40mg PO daily * Maalox prn PPx measures: * heparin * protonix Assessment and plan discussed with attending physician. <Christy GOYAL,Lauren - Last Filed: 09/13/16 15:52> Objective - Vital Signs/Intake and Output Vital Signs (last 24 hours): Temp Pulse Resp BP Pulse Ox 97.9 F 61 18 102/62 95 09/13/16 08:00 09/13/16 08:00 09/13/16 08:00 09/13/16 08:00 09/13/16 15:39 Intake and Output: 09/13/16 09/13/16 06:59 18:59 Intake Total 1200 Output Total 1050 Balance 150 - Medications Medications: Current Medications Acetaminophen (Tylenol 325mg Tab) 650 mg PO Q4 PRN PRN Reason: Pain, moderate (4-7) Last Admin: 09/12/16 09:49 Dose: 650 mg Al Hydrox/Mg Hydrox/Simethicone (Maalox Plus 30 Ml) 30 ml PO DAILY PRN PRN Reason: Indigestion / Heartburn Last Admin: 09/12/16 16:07 Dose: 30 ml Famotidine (Pepcid) 20 mg PO 1000,2200 [facility] Last Admin: 09/13/16 09:24 Dose: 20 mg Folic Acid (Folic Acid) 1 mg PO DAILY [facility] Last Admin: 09/13/16 09:24 Dose: 1 mg Heparin Sodium (Porcine) (Heparin) 5,000 units SC Q12 [facility] PRN Reason: Protocol Last Admin: 09/13/16 09:25 Dose: 5,000 units Hydroxyzine Pamoate (Vistaril) 50 mg PO Q8 PRN; Protocol PRN Reason: Anxiety Last Admin: 09/13/16 14:29 Dose: 50 mg Ibuprofen (Motrin Tab) 400 mg PO Q6H PRN PRN Reason: Pain, moderate (4-7) Last Admin: 09/13/16 09:28 Dose: 400 mg Lidocaine (Lidoderm) 1 ea TD DAILY [facility] Last Admin: 09/13/16 14:31 Dose: 1 ea Multivitamins (Thera Tab) 1 tab PO DAILY [facility] Last Admin: 09/13/16 09:24 Dose: 1 tab Pantoprazole Sodium (Protonix Ec Tab) 40 mg PO 0630 [facility] Last Admin: 09/13/16 06:41 Dose: 40 mg Thiamine HCl (Vitamin B1 Tab) 100 mg PO DAILY [facility] Last Admin: 09/13/16 09:24 Dose: 100 mg - Labs Labs: 09/10/16 07:36 09/10/16 07:36 Attending/Attestation - Attestation I have personally seen and examined this patient.: Yes I have fully participated in the care of the patient.: Yes I have reviewed all pertinent clinical information, including history, physical exam and plan: Yes Notes (Text): Patient was seen and examined with medical claims manager .Agreed with resident assessment and plan. 65 year old male admitted with ETOH withdrawal. Patient has chronic Chest pain, no obvious etiology, Chest X ray and CT chest is negative for any fracture , has chromic emphysematous changes. . Patient is not participating in physical therapy.He is unsteady.Physical therapy has recommended sub acute rehab.He is awaiting for placement. Management plan was discussed in detail with patient Education was provided.
[2016-09-13] MEDS: Lidocaine 5% Patch TD SCH (14:31)
[2016-09-13] MEDS: Alum-Mag Hydrox-Simethicone Susp (30 mL) PO PRN (16:28)
[2016-09-14] MEDS: Pantoprazole 40 mg EC Tab PO SCH (05:40)
[2016-09-14] MEDS: Lidocaine 5% Patch TD SCH (10:15)
[2016-09-14] MEDS: Multivitamin Therapeutic Tab PO SCH (10:28)
--- NOTE | 2016-09-14 10:39 | CP.PCM.PN ---
<Naina Finley - Last Filed: 09/14/16 10:32> Subjective - Date & Time of Evaluation Date of Evaluation: 09/14/16 Time of Evaluation: 10:32 - Subjective Subjective: HOSPITALIST PROGRESS NOTE Pt seen and examined at bedside. No acute events overnight. patient c/o epigastric pain not alleviated by motrin or tylenol. No N/V/D/C, fvers or chills. Objective - Vital Signs/Intake and Output Vital Signs (last 24 hours): Temp Pulse Resp BP Pulse Ox 98.8 F 61 18 106/64 98 09/14/16 08:00 09/14/16 08:00 09/14/16 08:00 09/14/16 08:00 09/14/16 08:00 Intake and Output: 09/14/16 09/14/16 06:59 18:59 Intake Total 840 Output Total 800 Balance 40 - Medications Medications: Current Medications Acetaminophen (Tylenol 325mg Tab) 650 mg PO Q4 PRN PRN Reason: Pain, moderate (4-7) Last Admin: 09/12/16 09:49 Dose: 650 mg Al Hydrox/Mg Hydrox/Simethicone (Maalox Plus 30 Ml) 30 ml PO DAILY PRN PRN Reason: Indigestion / Heartburn Last Admin: 09/13/16 16:28 Dose: 30 ml Famotidine (Pepcid) 20 mg PO 1000,2200 [facility] Last Admin: 09/14/16 10:28 Dose: 20 mg Folic Acid (Folic Acid) 1 mg PO DAILY [facility] Last Admin: 09/14/16 10:28 Dose: 1 mg Heparin Sodium (Porcine) (Heparin) 5,000 units SC Q12 [facility] PRN Reason: Protocol Last Admin: 09/14/16 10:15 Dose: 5,000 units Hydroxyzine Pamoate (Vistaril) 50 mg PO Q8 PRN; Protocol PRN Reason: Anxiety Last Admin: 09/13/16 22:02 Dose: 50 mg Ibuprofen (Motrin Tab) 400 mg PO Q6H PRN PRN Reason: Pain, moderate (4-7) Last Admin: 09/14/16 10:08 Dose: 400 mg Lidocaine (Lidoderm) 1 ea TD DAILY [facility] Last Admin: 09/14/16 10:15 Dose: 1 ea Multivitamins (Thera Tab) 1 tab PO DAILY [facility] Last Admin: 09/14/16 10:28 Dose: 1 tab Pantoprazole Sodium (Protonix Ec Tab) 40 mg PO 0630 [facility] Last Admin: 09/14/16 05:40 Dose: 40 mg Thiamine HCl (Vitamin B1 Tab) 100 mg PO DAILY [facility] Last Admin: 09/14/16 10:28 Dose: 100 mg - Labs Labs: 09/10/16 07:36 09/10/16 07:36 - Constitutional Appears: Non-toxic, No Acute Distress - Head Exam Head Exam: ATRAUMATIC - ENT Exam ENT Exam: Mucous Membranes Moist - Respiratory Exam Respiratory Exam: Clear to Ausculation Bilateral. absent: Rales, Rhonchi, Wheezes, Respiratory Distress - Cardiovascular Exam Cardiovascular Exam: REGULAR RHYTHM, +S1, +S2 - GI/Abdominal Exam GI & Abdominal Exam: Soft, Normal Bowel Sounds. absent: Distended, Firm, Guarding, Rigid, Tenderness - Neurological Exam Neurological Exam: Alert, Awake, Oriented x3 - Psychiatric Exam Psychiatric exam: Normal Affect, Normal Mood - Skin Skin Exam: Dry, Intact, Normal Color, Warm Assessment and Plan - Assessment and Plan (Free Text) Assessment: 65 yo M w/PMhx alcohol abuse, gerd, gastritis, presents from EMS for public intoxication. Alcohol level 410 on admission. Pt is admitted for ETOH intoxication and withdrawal symptoms. ETOH withdrawal/intoxication: * Continue multivitamin/folic acid/thiamine * Continue physical therapy * OOB to chair ordered Chest pain: * Initial EKG showed Sinus rhythm with PSVC rate 83bpm * Cardiac enzymes negative x3 * Initial Xray showed no acute disease, COPD * Rib series ordered, negative for fractures [see full report] * Likely musculo-skeletal in nature * XR ordered and negative for frx * Tylenol and motrin prn for minor pain * Chest CT, no contributory findings * lidocaine patch Depression, anxiety consult Dr. Cardona, help appreciated Vistaril 50mg q8 PRN Hx of GERD * Continue Protonix 40 qd * Maalox prn * Heart healthy diet PPx measures: * heparin * protonix Dispo: awaiting placement Assessment and plan discussed with attending physician. <Brenda Hernandez - Last Filed: 09/14/16 11:02> Objective - Vital Signs/Intake and Output Vital Signs (last 24 hours): Temp Pulse Resp BP Pulse Ox 98.8 F 61 18 106/64 98 09/14/16 08:00 09/14/16 08:00 09/14/16 08:00 09/14/16 08:00 09/14/16 08:00 Intake and Output: 09/14/16 09/14/16 06:59 18:59 Intake Total 840 Output Total 800 Balance 40 - Medications Medications: Current Medications Acetaminophen (Tylenol 325mg Tab) 650 mg PO Q4 PRN PRN Reason: Pain, moderate (4-7) Last Admin: 09/12/16 09:49 Dose: 650 mg Al Hydrox/Mg Hydrox/Simethicone (Maalox Plus 30 Ml) 30 ml PO DAILY PRN PRN Reason: Indigestion / Heartburn Last Admin: 09/13/16 16:28 Dose: 30 ml Folic Acid (Folic Acid) 1 mg PO DAILY [facility] Last Admin: 09/14/16 10:28 Dose: 1 mg Heparin Sodium (Porcine) (Heparin) 5,000 units SC Q12 [facility] PRN Reason: Protocol Last Admin: 09/14/16 10:15 Dose: 5,000 units Hydroxyzine Pamoate (Vistaril) 50 mg PO Q8 PRN; Protocol PRN Reason: Anxiety Last Admin: 09/13/16 22:02 Dose: 50 mg Ibuprofen (Motrin Tab) 400 mg PO Q6H PRN PRN Reason: Pain, moderate (4-7) Last Admin: 09/14/16 10:08 Dose: 400 mg Lidocaine (Lidoderm) 1 ea TD DAILY [facility] Last Admin: 09/14/16 10:15 Dose: 1 ea Multivitamins (Thera Tab) 1 tab PO DAILY [facility] Last Admin: 09/14/16 10:28 Dose: 1 tab Pantoprazole Sodium (Protonix Ec Tab) 40 mg PO 0630 [facility] Last Admin: 09/14/16 05:40 Dose: 40 mg Thiamine HCl (Vitamin B1 Tab) 100 mg PO DAILY [facility] Last Admin: 09/14/16 10:28 Dose: 100 mg - Labs Labs: 09/10/16 07:36 09/10/16 07:36 Attending/Attestation - Attestation I have personally seen and examined this patient.: Yes I have fully participated in the care of the patient.: Yes I have reviewed all pertinent clinical information, including history, physical exam and plan: Yes Notes (Text): 09/14/16 10:59 65 year old male with past medical history of chronic ETOH abuse who presented initially with alcohol intoxication. He was then admitted for alcohol withdrawal. His ativan was tapered. He is on multivitamin, folic acid and thiamine. He was counselled on alcohol abstinence. He complains of chronic chest wall pain. Serial cardiac enzymes were negative and ACS was ruled out. CXR and CT chest were negative for fracture, showed chronic emphysematous changes. He complains of generalized weakness and gait instability. He is being followed by PT who are currently recommending [facility]. Brenda Hernandez MD Hospitalist.
[2016-09-15] MEDS: Pantoprazole 40 mg EC Tab PO SCH (06:48)
[2016-09-15] MEDS: Multivitamin Therapeutic Tab PO SCH (09:13)
[2016-09-15] MEDS: Lidocaine 5% Patch TD SCH (09:13)
[2016-09-15 09:31] LABS: ADD MANUAL DIFF? NO
[2016-09-15 09:41] LABS: BASO # 0.03 K/mm3 (0.0-2.0); BASO % 0.3 % (0.0-3.0); EOS # 0.2 (0.0-0.7); EOS % 2.6 % (1.5-5.0); GRAN # 5.66 (1.4-6.5); GRAN % 62.9 % (50.0-68.0); LYMPH # 1.9 (1.2-3.4); LYMPH % 21.4 % (22.0-35.0); MEAN CELL VOLUME 95.4 fL (80.0-105.0); MEAN CORPUSCULAR HEMOGLOBIN 31.3 pg (25.0-35.0); MEAN CORPUSCULAR HGB CONC 32.8 g/dl (31.0-37.0); MEAN PLATELET VOLUME 9.4 fl (7.0-11.0); MONO # 1.2 (0.1-0.6); MONO % 12.8 % (1.0-6.0); PLATELET COUNT 236 10^3/uL (120.0-450.0); RED CELL DISTRIBUTION WIDTH 14.7 % (11.5-14.5)
[2016-09-15 09:57] LABS: ALB/GLOB RATIO 1.2 (1.1-1.8); ALKALINE PHOSPHATASE 67 U/L (38-133); ALT/SGPT 23 U/L (7-56); AST/SGOT 26 U/L (15-59); BILIRUBIN,TOTAL 0.5 mg/dL (0.2-1.3); BLOOD UREA NITROGEN 16 mg/dL (7-21); CALCIUM 9.4 mg/dL (8.4-10.5); CARBON DIOXIDE 23 mmol/L (21-33); CHLORIDE 104 mmol/L (95-110); GFR AFRICAN-AMERICAN > 60; GLUCOSE,RANDOM 90 mg/dL (70-110); POTASSIUM 4.2 mmol/L (3.6-5.0); SODIUM 138 mmol/L (132-148); TOTAL PROTEIN 7.3 g/dL (5.8-8.3)
--- NOTE | 2016-09-15 10:02 | CP.PCM.PN ---
Subjective - Date & Time of Evaluation Date of Evaluation: 09/15/16 Time of Evaluation: 09:00 - Subjective Subjective: Patient seen and examined at bedside. No acute events reported overnight. Complains of chronic chest wall pain. Denies any other complaints. Appears comfortable watching TV this morning. Review of Systems - Review of Systems All systems: reviewed and no additional remarkable complaints except - Constitutional Constitutional: Weakness. absent: Fever - EENT Eyes: absent: Blurred Vision Ears: absent: Dizziness - Cardiovascular Cardiovascular: As Per HPI - Respiratory Respiratory: absent: Cough, Dyspnea - Gastrointestinal Gastrointestinal: absent: Nausea, Vomiting - Genitourinary Genitourinary: absent: Dysuria - Musculoskeletal Musculoskeletal: absent: Back Pain - Neurological Neurological: Weakness. absent: Tremor - Psychiatric Psychiatric: absent: Anxiety Objective - Vital Signs/Intake and Output Vital Signs (last 24 hours): Temp Pulse Resp BP Pulse Ox 97.7 F 60 18 99/62 L 96 09/15/16 07:30 09/15/16 07:30 09/15/16 07:30 09/15/16 07:30 09/15/16 07:30 Intake and Output: 09/15/16 09/15/16 06:59 18:59 Intake Total 1200 Balance 1200 - Medications Medications: Current Medications Acetaminophen (Tylenol 325mg Tab) 650 mg PO Q4 PRN PRN Reason: Pain, moderate (4-7) Last Admin: 09/14/16 19:55 Dose: 650 mg Al Hydrox/Mg Hydrox/Simethicone (Maalox Plus 30 Ml) 30 ml PO DAILY PRN PRN Reason: Indigestion / Heartburn Last Admin: 09/13/16 16:28 Dose: 30 ml Folic Acid (Folic Acid) 1 mg PO DAILY [facility] Last Admin: 09/15/16 09:12 Dose: 1 mg Heparin Sodium (Porcine) (Heparin) 5,000 units SC Q12 [facility] PRN Reason: Protocol Last Admin: 09/15/16 09:12 Dose: 5,000 units Hydroxyzine Pamoate (Vistaril) 50 mg PO Q8 PRN; Protocol PRN Reason: Anxiety Last Admin: 09/15/16 02:00 Dose: 50 mg Ibuprofen (Motrin Tab) 400 mg PO Q6H PRN PRN Reason: Pain, moderate (4-7) Last Admin: 04/30/17 09:13 Dose: 400 mg Lidocaine (Lidoderm) 1 ea TD DAILY [facility] Last Admin: 09/15/16 09:13 Dose: 1 ea Multivitamins (Thera Tab) 1 tab PO DAILY [facility] Last Admin: 09/15/16 09:13 Dose: 1 tab Pantoprazole Sodium (Protonix Ec Tab) 40 mg PO 0630 [facility] Last Admin: 09/15/16 06:48 Dose: 40 mg Thiamine HCl (Vitamin B1 Tab) 100 mg PO DAILY [facility] Last Admin: 09/15/16 09:13 Dose: 100 mg - Labs Labs: 09/10/16 07:36 09/10/16 07:36 - Constitutional Appears: Well, No Acute Distress - Head Exam Head Exam: NORMAL INSPECTION - Eye Exam Eye Exam: EOMI - ENT Exam ENT Exam: Normal Exam - Respiratory Exam Respiratory Exam: Clear to Ausculation Bilateral. absent: Rales, Wheezes - Cardiovascular Exam Cardiovascular Exam: REGULAR RHYTHM, +S1, +S2 - GI/Abdominal Exam GI & Abdominal Exam: Soft, Normal Bowel Sounds. absent: Tenderness, Organomegaly - Extremities Exam Extremities Exam: Normal Inspection - Neurological Exam Neurological Exam: Alert, Awake, Oriented x3 - Psychiatric Exam Psychiatric exam: Normal Affect, Normal Mood Assessment and Plan - Assessment and Plan (Free Text) Plan: This is a 65 year old male with past medical history of chronic ETOH abuse and GERD who presented initially with alcohol intoxication. He was admitted for alcohol withdrawal. 1. Alcohol withdrawal - This has resolved. He is on multivitamin, folic acid and thiamine. He was counselled on alcohol abstinence. 2. Chest wall pain - Likely musculoskeletal. EKG showed no acute changes. Serial cardiac enzymes were negative and ACS was ruled out. Xray was negative for acute rib fracture. He also had a CT chest which was also negative for fracture, showed chronic emphysematous changes. He is on motrin prn. He is also on lidoderm patch. 3. Gait instability / weakness - Continue with physical therapy as tolerated. 4. GERD - Continue with protonix. Continue with maalox prn. 5. Depression/anxiety - Psychiatry evaluation was appreciated. He is on vistaril prn. Continue with protonix for GI prophylaxis and heparin for DVT prophylaxis. Continue with physical therapy who is currently recommending [facility].
[2016-09-16] MEDS: Pantoprazole 40 mg EC Tab PO SCH (05:58)
[2016-09-16 07:27] LABS: ADD MANUAL DIFF? NO
[2016-09-16 07:35] LABS: BASO # 0.02 K/mm3 (0.0-2.0); BASO % 0.2 % (0.0-3.0); EOS # 0.2 (0.0-0.7); GRAN # 5.01 (1.4-6.5); GRAN % 61.4 % (50.0-68.0); HEMATOCRIT 37.7 % (42.0-52.0); LYMPH # 2.1 (1.2-3.4); LYMPH % 26.1 % (22.0-35.0); MEAN CORPUSCULAR HEMOGLOBIN 31.4 pg (25.0-35.0); MEAN CORPUSCULAR HGB CONC 33.4 g/dl (31.0-37.0); MEAN PLATELET VOLUME 9.2 fl (7.0-11.0); MONO # 0.8 (0.1-0.6); MONO % 10.3 % (1.0-6.0); PLATELET COUNT 248 10^3/uL (120.0-450.0); RED CELL DISTRIBUTION WIDTH 14.5 % (11.5-14.5); WHITE BLOOD COUNT 8.2 10^3/ul (4.5-11.0)
[2016-09-16 08:00] LABS: ALB/GLOB RATIO 1.1 (1.1-1.8); ALKALINE PHOSPHATASE 72 U/L (38-133); ALT/SGPT 27 U/L (7-56); AST/SGOT 29 U/L (15-59); BILIRUBIN,TOTAL 0.5 mg/dL (0.2-1.3); BLOOD UREA NITROGEN 13 mg/dL (7-21); CALCIUM 9.3 mg/dL (8.4-10.5); CARBON DIOXIDE 26 mmol/L (21-33); CHLORIDE 102 mmol/L (98-107); GFR AFRICAN-AMERICAN > 60; GLUCOSE,RANDOM 84 mg/dL (70-110); POTASSIUM 3.9 mmol/L (3.6-5.0); SODIUM 138 mmol/L (132-148); TOTAL PROTEIN 7.2 g/dL (5.8-8.3)
[2016-09-16] MEDS: Lidocaine 5% Patch TD SCH (09:56)
[2016-09-16] MEDS: Multivitamin Therapeutic Tab PO SCH (09:56)
--- NOTE | 2016-09-16 10:50 | CP.PCM.PN ---
<Lisa Faria - Last Filed: 09/16/16 10:55> Subjective - Date & Time of Evaluation Date of Evaluation: 09/16/16 Time of Evaluation: 07:45 - Subjective Subjective: Pt seen and evaluated at bedside. Pt continues to have chronic R chest wall pain complaint, but denies SOB, N/V, and urinary symptoms. Afebrile overnight. Objective - Vital Signs/Intake and Output Vital Signs (last 24 hours): Temp Pulse Resp BP Pulse Ox 97.4 F L 60 19 102/58 L 98 09/16/16 08:35 09/16/16 08:35 09/16/16 08:35 09/16/16 08:35 09/16/16 08:35 - Medications Medications: Current Medications Acetaminophen (Tylenol 325mg Tab) 650 mg PO Q4 PRN PRN Reason: Pain, moderate (4-7) Last Admin: 09/15/16 21:38 Dose: 650 mg Al Hydrox/Mg Hydrox/Simethicone (Maalox Plus 30 Ml) 30 ml PO DAILY PRN PRN Reason: Indigestion / Heartburn Last Admin: 09/13/16 16:28 Dose: 30 ml Folic Acid (Folic Acid) 1 mg PO DAILY [facility] Last Admin: 09/16/16 09:56 Dose: 1 mg Heparin Sodium (Porcine) (Heparin) 5,000 units SC Q12 [facility] PRN Reason: Protocol Last Admin: 09/16/16 09:56 Dose: 5,000 units Hydroxyzine Pamoate (Vistaril) 50 mg PO Q8 PRN; Protocol PRN Reason: Anxiety Last Admin: 09/16/16 01:40 Dose: 50 mg Ibuprofen (Motrin Tab) 400 mg PO Q6H PRN PRN Reason: Pain, moderate (4-7) Last Admin: 09/15/16 15:38 Dose: 400 mg Lidocaine (Lidoderm) 1 ea TD DAILY [facility] Last Admin: 09/16/16 09:56 Dose: 1 ea Multivitamins (Thera Tab) 1 tab PO DAILY [facility] Last Admin: 09/16/16 09:56 Dose: 1 tab Pantoprazole Sodium (Protonix Ec Tab) 40 mg PO 0630 [facility] Last Admin: 09/16/16 05:58 Dose: 40 mg Thiamine HCl (Vitamin B1 Tab) 100 mg PO DAILY [facility] Last Admin: 09/16/16 09:56 Dose: 100 mg - Labs Labs: 09/16/16 06:30 09/16/16 06:30 - Constitutional Appears: Non-toxic, No Acute Distress - Eye Exam Eye Exam: EOMI, Normal appearance - ENT Exam ENT Exam: Mucous Membranes Moist, Normal External Ear Exam - Respiratory Exam Respiratory Exam: Clear to Ausculation Bilateral, NORMAL BREATHING PATTERN - Cardiovascular Exam Cardiovascular Exam: +S1, +S2. absent: Tachycardia - GI/Abdominal Exam GI & Abdominal Exam: Soft. absent: Tenderness - Exam External exam: absent: Ecchymosis, Erythema - Extremities Exam Extremities Exam: absent: Pedal Edema, Tenderness - Neurological Exam Neurological Exam: Alert, Awake - Skin Skin Exam: Intact, Normal Color Assessment and Plan - Assessment and Plan (Free Text) Plan: 65 yo M year w/PMHx of chronic ETOH abuse and GERD who presented initially with alcohol intoxication and admitted for alcohol withdrawal. Alcohol withdrawal: * Resolved * multivitamin, folic acid and thiamine * Counselled on alcohol abstinence R Chest wall pain - * Likely musculoskeletal. EKG showed no acute changes. Serial cardiac enzymes were negative and ACS was ruled out. Xray was negative for acute rib fracture. * CT chest which was also negative for fracture, showed chronic emphysematous changes. He is on motrin prn. He is also on lidoderm patch. Gait instability / weakness * Continue with physical therapy as tolerated. GERD * Continue with protonix. * Continue with maalox prn. Depression/anxiety - * Psychiatry evaluation was appreciated. * vistaril prn PPx measures: * GI prophylaxis protonix * heparin for DVT prophylaxis. Continue with physical therapy who is currently recommending [facility]. <Christy GOYAL,Lauren - Last Filed: 09/16/16 12:00> Objective - Vital Signs/Intake and Output Vital Signs (last 24 hours): Temp Pulse Resp BP Pulse Ox 97.4 F L 60 19 102/58 L 98 09/16/16 08:35 09/16/16 08:35 09/16/16 08:35 09/16/16 08:35 09/16/16 08:35 - Medications Medications: Current Medications Acetaminophen (Tylenol 325mg Tab) 650 mg PO Q4 PRN PRN Reason: Pain, moderate (4-7) Last Admin: 09/15/16 21:38 Dose: 650 mg Al Hydrox/Mg Hydrox/Simethicone (Maalox Plus 30 Ml) 30 ml PO DAILY PRN PRN Reason: Indigestion / Heartburn Last Admin: 09/13/16 16:28 Dose: 30 ml Folic Acid (Folic Acid) 1 mg PO DAILY [facility] Last Admin: 09/16/16 09:56 Dose: 1 mg Heparin Sodium (Porcine) (Heparin) 5,000 units SC Q12 [facility] PRN Reason: Protocol Last Admin: 09/16/16 09:56 Dose: 5,000 units Hydroxyzine Pamoate (Vistaril) 50 mg PO Q8 PRN; Protocol PRN Reason: Anxiety Last Admin: 09/16/16 01:40 Dose: 50 mg Ibuprofen (Motrin Tab) 400 mg PO Q6H PRN PRN Reason: Pain, moderate (4-7) Last Admin: 09/15/16 15:38 Dose: 400 mg Lidocaine (Lidoderm) 1 ea TD DAILY [facility] Last Admin: 09/16/16 09:56 Dose: 1 ea Multivitamins (Thera Tab) 1 tab PO DAILY [facility] Last Admin: 09/16/16 09:56 Dose: 1 tab Pantoprazole Sodium (Protonix Ec Tab) 40 mg PO 0630 [facility] Last Admin: 09/16/16 05:58 Dose: 40 mg Thiamine HCl (Vitamin B1 Tab) 100 mg PO DAILY [facility] Last Admin: 09/16/16 09:56 Dose: 100 mg - Labs Labs: 09/16/16 06:30 09/16/16 06:30 Attending/Attestation - Attestation I have personally seen and examined this patient.: Yes I have fully participated in the care of the patient.: Yes I have reviewed all pertinent clinical information, including history, physical exam and plan: Yes Notes (Text): Patient was seen and examined with medical office specialist .Agreed with resident assessment and plan. 65 year old male admitted with ETOH withdrawal. Patient has chronic Chest pain, no obvious etiology, Chest X ray and CT chest is negative for any fracture, has chromic emphysematous changes. . Patient is unsteady.Physical therapy has recommended sub acute rehab.Patient is also not participation in physical therapy. He is awaiting for placement.He is stable medically and can be discharged once OK by PT or placement is arranged for [facility]. Management plan was discussed in detail with patient Education was provided.
[2016-09-16] MEDS: Alum-Mag Hydrox-Simethicone Susp (30 mL) PO PRN (19:53)
[2016-09-17] MEDS: Pantoprazole 40 mg EC Tab PO SCH (06:05)
[2016-09-17 07:56] LABS: ADD MANUAL DIFF? NO
[2016-09-17 07:59] LABS: BASO # 0.04 K/mm3 (0.0-2.0); BASO % 0.5 % (0.0-3.0); EOS # 0.2 (0.0-0.7); EOS % 2.1 % (1.5-5.0); GRAN # 4.68 (1.4-6.5); GRAN % 60.3 % (50.0-68.0); HEMATOCRIT 39.8 % (42.0-52.0); LYMPH # 2.2 (1.2-3.4); LYMPH % 27.8 % (22.0-35.0); MEAN CELL VOLUME 93.9 fL (80.0-105.0); MEAN CORPUSCULAR HEMOGLOBIN 31.8 pg (25.0-35.0); MEAN CORPUSCULAR HGB CONC 33.9 g/dl (31.0-37.0); MONO # 0.7 (0.1-0.6); MONO % 9.3 % (1.0-6.0); PLATELET COUNT 243 10^3/uL (120.0-450.0); RED CELL DISTRIBUTION WIDTH 14.7 % (11.5-14.5); WHITE BLOOD COUNT 7.8 10^3/ul (4.5-11.0)
[2016-09-17 08:11] LABS: ALB/GLOB RATIO 1.1 (1.1-1.8); ALKALINE PHOSPHATASE 74 U/L (38-133); ALT/SGPT 25 U/L (7-56); AST/SGOT 23 U/L (15-59); BILIRUBIN,TOTAL 0.6 mg/dL (0.2-1.3); BLOOD UREA NITROGEN 15 mg/dL (7-21); CALCIUM 9.6 mg/dL (8.4-10.5); CARBON DIOXIDE 26 mmol/L (21-33); CHLORIDE 101 mmol/L (98-107); GFR AFRICAN-AMERICAN > 60; GLUCOSE,RANDOM 81 mg/dL (70-110); POTASSIUM 4.2 mmol/L (3.6-5.0); SODIUM 139 mmol/L (132-148); TOTAL PROTEIN 7.8 g/dL (5.8-8.3)
[2016-09-17] MEDS: Multivitamin Therapeutic Tab PO SCH (09:38)
[2016-09-17] MEDS: Lidocaine 5% Patch TD SCH (09:38)
--- NOTE | 2016-09-17 15:26 | CP.PCM.PN ---
<Lisa Faria - Last Filed: 09/17/16 15:28> Subjective - Date & Time of Evaluation Date of Evaluation: 09/17/16 Time of Evaluation: 07:50 - Subjective Subjective: Pt seen and evaluated at bedside. Pt makes chronic R chest wall pain complaint. Denies SOB, n/v, urinary symptoms or irregularity of BM. Afebrile overnight. Objective - Vital Signs/Intake and Output Vital Signs (last 24 hours): Temp Pulse Resp BP Pulse Ox 98 F 58 L 20 100/63 98 09/17/16 08:44 09/17/16 08:44 09/17/16 08:44 09/17/16 08:44 09/17/16 11:42 Intake and Output: 09/17/16 09/17/16 06:59 18:59 Intake Total 1260 960 Output Total 1150 700 Balance 110 260 - Medications Medications: Current Medications Acetaminophen (Tylenol 325mg Tab) 650 mg PO Q4 PRN PRN Reason: Pain, moderate (4-7) Last Admin: 09/15/16 21:38 Dose: 650 mg Al Hydrox/Mg Hydrox/Simethicone (Maalox Plus 30 Ml) 30 ml PO DAILY PRN PRN Reason: Indigestion / Heartburn Last Admin: 09/16/16 19:53 Dose: 30 ml Folic Acid (Folic Acid) 1 mg PO DAILY [facility] Last Admin: 09/17/16 09:38 Dose: 1 mg Heparin Sodium (Porcine) (Heparin) 5,000 units SC Q12 [facility] PRN Reason: Protocol Last Admin: 09/17/16 09:38 Dose: 5,000 units Hydroxyzine Pamoate (Vistaril) 50 mg PO Q8 PRN; Protocol PRN Reason: Anxiety Last Admin: 09/17/16 13:50 Dose: 50 mg Ibuprofen (Motrin Tab) 400 mg PO Q6H PRN PRN Reason: Pain, moderate (4-7) Last Admin: 09/16/16 13:30 Dose: 400 mg Lidocaine (Lidoderm) 1 ea TD DAILY [facility] Last Admin: 09/17/16 09:38 Dose: 1 ea Multivitamins (Thera Tab) 1 tab PO DAILY [facility] Last Admin: 09/17/16 09:38 Dose: 1 tab Pantoprazole Sodium (Protonix Ec Tab) 40 mg PO 0630 [facility] Last Admin: 09/17/16 06:05 Dose: 40 mg Thiamine HCl (Vitamin B1 Tab) 100 mg PO DAILY [facility] Last Admin: 09/17/16 09:38 Dose: 100 mg - Labs Labs: 09/17/16 07:30 09/17/16 07:30 - Constitutional Appears: Non-toxic, No Acute Distress - Head Exam Head Exam: ATRAUMATIC, NORMOCEPHALIC - Eye Exam Eye Exam: EOMI, Normal appearance Pupil Exam: NORMAL ACCOMODATION, PERRL - ENT Exam ENT Exam: Mucous Membranes Moist, Normal Exam - Respiratory Exam Respiratory Exam: Clear to Ausculation Bilateral, NORMAL BREATHING PATTERN - Cardiovascular Exam Cardiovascular Exam: +S1, +S2. absent: Tachycardia - GI/Abdominal Exam GI & Abdominal Exam: Soft. absent: Tenderness - Exam External exam: absent: Ecchymosis, Erythema - Extremities Exam Extremities Exam: absent: Pedal Edema, Tenderness - Neurological Exam Neurological Exam: Alert, Awake - Skin Skin Exam: Intact, Normal Color Assessment and Plan - Assessment and Plan (Free Text) Plan: 65 yo M year w/PMHx of chronic ETOH abuse and GERD who presented initially with alcohol intoxication and admitted for alcohol withdrawal. Alcohol withdrawal: * Resolved * multivitamin, folic acid and thiamine * Counselled on alcohol abstinence R Chest wall pain - * Likely musculoskeletal. EKG showed no acute changes. Serial cardiac enzymes were negative and ACS was ruled out. Xray was negative for acute rib fracture. * CT chest which was also negative for fracture, showed chronic emphysematous changes. He is on motrin prn. He is also on lidoderm patch. Gait instability / weakness * Continue with physical therapy as tolerated. GERD * Continue with protonix. * Continue with maalox prn. Depression/anxiety - * Psychiatry evaluation was appreciated. * vistaril prn PPx measures: * GI prophylaxis protonix * heparin for DVT prophylaxis. Continue with physical therapy who is currently recommending [facility]. <Christy GOYAL,Janessalos angelesjuju - Last Filed: 09/18/16 15:41> Objective - Vital Signs/Intake and Output Vital Signs (last 24 hours): Temp Pulse Resp BP Pulse Ox 98.1 F 61 18 101/67 98 09/18/16 07:43 09/18/16 07:43 09/18/16 07:43 09/18/16 07:43 09/18/16 07:43 Intake and Output: 09/18/16 09/18/16 06:59 18:59 Intake Total 540 1020 Output Total 800 Balance 540 220 - Medications Medications: Current Medications Acetaminophen (Tylenol 325mg Tab) 650 mg PO Q4 PRN PRN Reason: Pain, moderate (4-7) Last Admin: 09/18/16 14:47 Dose: 650 mg Al Hydrox/Mg Hydrox/Simethicone (Maalox Plus 30 Ml) 30 ml PO DAILY PRN PRN Reason: Indigestion / Heartburn Last Admin: 09/18/16 05:46 Dose: 30 ml Folic Acid (Folic Acid) 1 mg PO DAILY [facility] Last Admin: 09/18/16 09:09 Dose: 1 mg Heparin Sodium (Porcine) (Heparin) 5,000 units SC Q12 [facility] PRN Reason: Protocol Last Admin: 09/18/16 09:13 Dose: 5,000 units Hydroxyzine Pamoate (Vistaril) 50 mg PO Q8 PRN; Protocol PRN Reason: Anxiety Last Admin: 09/18/16 12:19 Dose: 50 mg Ibuprofen (Motrin Tab) 400 mg PO Q6H PRN PRN Reason: Pain, moderate (4-7) Last Admin: 09/16/16 13:30 Dose: 400 mg Lidocaine (Lidoderm) 1 ea TD DAILY [facility] Last Admin: 09/18/16 09:09 Dose: 1 ea Multivitamins (Thera Tab) 1 tab PO DAILY [facility] Last Admin: 09/18/16 09:09 Dose: 1 tab Pantoprazole Sodium (Protonix Ec Tab) 40 mg PO 0630 [facility] Last Admin: 09/18/16 05:46 Dose: 40 mg Thiamine HCl (Vitamin B1 Tab) 100 mg PO DAILY [facility] Last Admin: 09/18/16 09:09 Dose: 100 mg - Labs Labs: 09/17/16 07:30 09/17/16 07:30 Attending/Attestation - Attestation I have personally seen and examined this patient.: Yes I have fully participated in the care of the patient.: Yes I have reviewed all pertinent clinical information, including history, physical exam and plan: Yes Notes (Text): Patient was seen and examined with medical van driver .Agreed with resident assessment and plan. 65 yo M with PMHx of chronic ETOH abuse and GERD who presented initially with alcohol intoxication and alcohol withdrawal.His alcohol withdrawal has improved.He has chronic chest wall pain, work up was negative, patient was found to be unsteady.Physical therapy has recommended [facility].Patient is awaiting for placement.
--- NOTE | 2016-09-17 16:14 | CP.PCM.PCO ---
Physician Communication Note - Physician Communication Note Physician Communication Note: pt saw thisMD on the floor asked meds for "nervous ",educated about Vistaril
[2016-09-18] MEDS: Alum-Mag Hydrox-Simethicone Susp (30 mL) PO PRN (05:46)
[2016-09-18] MEDS: Pantoprazole 40 mg EC Tab PO SCH (05:46)
[2016-09-18] MEDS: Multivitamin Therapeutic Tab PO SCH (09:09)
[2016-09-18] MEDS: Lidocaine 5% Patch TD SCH (09:09)
--- NOTE | 2016-09-18 16:29 | CP.PCM.PN ---
<Lisa Faria - Last Filed: 09/18/16 16:30> Subjective - Date & Time of Evaluation Date of Evaluation: 09/18/16 Time of Evaluation: 07:25 - Subjective Subjective: Pt seen and evaluated at bedside. Pt denies SOB, fever, n/v. Has chronic R chest and abdominal pain complaint. Afebrile overnight. Reports eating. Objective - Vital Signs/Intake and Output Vital Signs (last 24 hours): Temp Pulse Resp BP Pulse Ox 98.1 F 61 18 101/67 98 09/18/16 07:43 09/18/16 07:43 09/18/16 07:43 09/18/16 07:43 09/18/16 07:43 Intake and Output: 09/18/16 09/18/16 06:59 18:59 Intake Total 540 1020 Output Total 800 Balance 540 220 - Medications Medications: Current Medications Acetaminophen (Tylenol 325mg Tab) 650 mg PO Q4 PRN PRN Reason: Pain, moderate (4-7) Last Admin: 09/18/16 14:47 Dose: 650 mg Al Hydrox/Mg Hydrox/Simethicone (Maalox Plus 30 Ml) 30 ml PO DAILY PRN PRN Reason: Indigestion / Heartburn Last Admin: 09/18/16 05:46 Dose: 30 ml Folic Acid (Folic Acid) 1 mg PO DAILY [facility] Last Admin: 09/18/16 09:09 Dose: 1 mg Heparin Sodium (Porcine) (Heparin) 5,000 units SC Q12 [facility] PRN Reason: Protocol Last Admin: 09/18/16 09:13 Dose: 5,000 units Hydroxyzine Pamoate (Vistaril) 50 mg PO Q8 PRN; Protocol PRN Reason: Anxiety Last Admin: 09/18/16 12:19 Dose: 50 mg Ibuprofen (Motrin Tab) 400 mg PO Q6H PRN PRN Reason: Pain, moderate (4-7) Last Admin: 09/16/16 13:30 Dose: 400 mg Lidocaine (Lidoderm) 1 ea TD DAILY [facility] Last Admin: 09/18/16 09:09 Dose: 1 ea Multivitamins (Thera Tab) 1 tab PO DAILY [facility] Last Admin: 09/18/16 09:09 Dose: 1 tab Pantoprazole Sodium (Protonix Ec Tab) 40 mg PO 0630 [facility] Last Admin: 09/18/16 05:46 Dose: 40 mg Thiamine HCl (Vitamin B1 Tab) 100 mg PO DAILY [facility] Last Admin: 09/18/16 09:09 Dose: 100 mg - Labs Labs: 09/17/16 07:30 09/17/16 07:30 - Constitutional Appears: Non-toxic, No Acute Distress - Head Exam Head Exam: ATRAUMATIC, NORMOCEPHALIC - Eye Exam Eye Exam: EOMI, Normal appearance - ENT Exam ENT Exam: Mucous Membranes Moist, Normal Exam - Respiratory Exam Respiratory Exam: Clear to Ausculation Bilateral, NORMAL BREATHING PATTERN - Cardiovascular Exam Cardiovascular Exam: +S1, +S2. absent: Bradycardia - GI/Abdominal Exam GI & Abdominal Exam: Soft. absent: Tenderness - Exam External exam: absent: Ecchymosis, Erythema - Extremities Exam Extremities Exam: absent: Pedal Edema, Tenderness - Neurological Exam Neurological Exam: Alert, Awake - Skin Skin Exam: Intact, Normal Color Assessment and Plan - Assessment and Plan (Free Text) Plan: 65 yo M year w/PMHx of chronic ETOH abuse and GERD who presented initially with alcohol intoxication and admitted for alcohol withdrawal. Alcohol withdrawal: * Resolved * multivitamin, folic acid and thiamine * Counselled on alcohol abstinence R Chest wall pain - * Likely musculoskeletal. EKG showed no acute changes. Serial cardiac enzymes were negative and ACS was ruled out. Xray was negative for acute rib fracture. * CT chest which was also negative for fracture, showed chronic emphysematous changes. He is on motrin prn. He is also on lidoderm patch. Gait instability / weakness * Continue with physical therapy as tolerated. GERD * Continue with protonix. * Continue with maalox prn. Depression/anxiety - * Psychiatry evaluation was appreciated. * vistaril prn PPx measures: * GI prophylaxis protonix * heparin for DVT prophylaxis. Continue with physical therapy who is currently recommending [facility]. Pt refused Physical therapy today. <Chrisyt GOYAL,Janessamenifeejuju - Last Filed: 09/19/16 16:43> Objective - Vital Signs/Intake and Output Vital Signs (last 24 hours): Temp Pulse Resp BP Pulse Ox 97.6 F 66 20 114/69 98 09/19/16 08:35 09/19/16 08:35 09/19/16 08:35 09/19/16 08:35 09/19/16 08:35 Intake and Output: 09/19/16 09/19/16 06:59 18:59 Intake Total 960 Output Total 925 Balance 35 - Labs Labs: 09/17/16 07:30 09/17/16 07:30 Attending/Attestation - Attestation I have fully participated in the care of the patient.: Yes I have reviewed all pertinent clinical information, including history, physical exam and plan: Yes Notes (Text): 09/19/16 16:41 Patient was seen and examined with medical imaging specialist .Agreed with resident assessment and plan. Patient is stable at base line, he is not participating in Physical therapy but has been found walking with out any assistance by nursing staff.We will ambulate him, and will discharge home . The issue of chronic alcohol abuse was discussed in detail with patient.
[2016-09-18 16:50] VITALS: RESP 20
[2016-09-19] MEDS: Pantoprazole 40 mg EC Tab PO SCH (05:33)
[2016-09-19 08:37] VITALS: BP 114/69; PULSE 66; TEMP 97.6; O2SAT 98
[2016-09-19] MEDS: Lidocaine 5% Patch TD SCH (10:01)
[2016-09-19] MEDS: Multivitamin Therapeutic Tab PO SCH (10:02)
--- NOTE | 2016-09-19 12:36 | CP.PCM.DIS ---
<Lisa Faria - Last Filed: 09/19/16 16:05> Provider - Provider Date of Admission: 09/05/16 12:07 Attending physician: Lauren Harrison MD Primary care physician: Austin Arce MD Consults: Dr. rodriguez, Psychiatry Time Spent in preparation of Discharge (in minutes): 35 Hospital Course - Lab Results Lab Results: Most Recent Lab Values WBC 7.8 10^3/ul (4.5-11.0) 09/17/16 07:30 RBC 4.24 10^6/uL (3.5-6.1) 09/17/16 07:30 Hgb 13.5 gm/dL (14.0-18.0) L 09/17/16 07:30 Hct 39.8 % (42.0-52.0) L 09/17/16 07:30 MCV 93.9 fL (80.0-105.0) 09/17/16 07:30 MCH 31.8 pg (25.0-35.0) 09/17/16 07:30 MCHC 33.9 g/dl (31.0-37.0) 09/17/16 07:30 RDW 14.7 % (11.5-14.5) H 09/17/16 07:30 Plt Count 243 10^3/uL (120.0-450.0) 09/17/16 07:30 MPV 9.0 fl (7.0-11.0) 09/17/16 07:30 Gran % 60.3 % (50.0-68.0) 09/17/16 07:30 Lymph % (Auto) 27.8 % (22.0-35.0) 09/17/16 07:30 [place] % (Auto) 9.3 % (1.0-6.0) H 09/17/16 07:30 Eos % (Auto) 2.1 % (1.5-5.0) 09/17/16 07:30 Baso % (Auto) 0.5 % (0.0-3.0) 09/17/16 07:30 Gran # 4.68 (1.4-6.5) 09/17/16 07:30 Lymph # 2.2 (1.2-3.4) 09/17/16 07:30 [place] # 0.7 (0.1-0.6) H 09/17/16 07:30 Eos # 0.2 (0.0-0.7) 09/17/16 07:30 Baso # 0.04 K/mm3 (0.0-2.0) 09/17/16 07:30 Sodium 139 mmol/L (132-148) 09/17/16 07:30 Potassium 4.2 mmol/L (3.6-5.0) 09/17/16 07:30 Chloride 101 mmol/L (98-107) 09/17/16 07:30 Carbon Dioxide 26 mmol/L (21-33) 09/17/16 07:30 Anion Gap 16 (10-20) 09/17/16 07:30 BUN 15 mg/dL (7-21) 09/17/16 07:30 Creatinine 0.8 mg/dL (0.5-1.4) 09/17/16 07:30 Est GFR ( Amer) > 60 09/17/16 07:30 Est GFR (Non-Af Amer) > 60 09/17/16 07:30 Random Glucose 81 mg/dL (70-110) 09/17/16 07:30 Calcium 9.6 mg/dL (8.4-10.5) 09/17/16 07:30 Magnesium 2.0 mg/dL (1.7-2.2) 09/06/16 07:00 Total Bilirubin 0.6 mg/dL (0.2-1.3) 09/17/16 07:30 AST 23 U/L (15-59) 09/17/16 07:30 ALT 25 U/L (7-56) 09/17/16 07:30 Alkaline Phosphatase 74 U/L (38-133) 09/17/16 07:30 Lactate Dehydrogenase 397 U/L (333-699) 09/06/16 07:00 Total Creatine Kinase 35 U/L (35-230) 09/06/16 07:00 Troponin I < 0.01 ng/mL 09/06/16 07:00 Total Protein 7.8 g/dL (5.8-8.3) 09/17/16 07:30 Albumin 4.1 g/dL (3.0-4.8) 09/17/16 07:30 Globulin 3.6 gm/dL 09/17/16 07:30 Albumin/Globulin Ratio 1.1 (1.1-1.8) 09/17/16 07:30 Urine Opiates Screen Negative (NEGATIVE) 09/06/16 20:05 Urine Methadone Screen Negative (NEGATIVE) 09/06/16 20:05 Ur Barbiturates Screen Negative (NEGATIVE) 09/06/16 20:05 Ur Phencyclidine Scrn Negative (NEGATIVE) 09/06/16 20:05 Ur Amphetamines Screen Negative (NEGATIVE) 09/06/16 20:05 U Benzodiazepines Scrn Positive (NEGATIVE) H 09/06/16 20:05 U Oth Cocaine Metabols Negative (NEGATIVE) 09/06/16 20:05 U Cannabinoids Screen Negative (NEGATIVE) 09/06/16 20:05 Alcohol, Quantitative 410 mg/dL (0-10) H* 09/04/16 20:46 - Hospital Course Hospital Course: 65 yo M w/PMhx alcohol abuse, gerd, gastritis, presents from EMS for public intoxication. Alcohol level is 410. Pt is admitted for ETOH intoxication and withdrawal. Pt was placed on CIWA protocol, IVF and on librium and ativan prn for withdrawal symptoms. He was counselled on alcohol abstinence. LIbrium and ativan were tapered down, and ETOH withdrawal resolved. Pt made right sided chest wall pain complaint, serial cardiac enzymes were negative and ACS was ruled out. He has history of rib fracture. Rib series was ordered and were negative for acute fracture, subsequent CT chest is negative for any fracture. Pain controlled with toradol, tramadol then lidocaine patch. Psychiatry consulted for admitted pt depression and anxiety, for which consult recommended vistaril, which was made available to pt and requested by pt. GERD was treated with protonix and maalox. Pt's unsteady gait was treated with physical therapy. Gait improved throughout admission and deemed independent by physical therapy upon final eval. Pt discharged home in fair condition with instructions to follow with PMD of choice, and [facility], with prescriptions for folic acid, thiamine, multivitamin, lidocaine patch and vistaril 50 mg q8 PO PRN. Discharge Exam - Head Exam Head Exam: NORMAL INSPECTION, NORMOCEPHALIC - Eye Exam Eye Exam: EOMI, Normal appearance Pupil Exam: NORMAL ACCOMODATION, PERRL - ENT Exam ENT Exam: Mucous Membranes Moist, Normal External Ear Exam - Respiratory Exam Respiratory Exam: NORMAL BREATHING PATTERN, UNREMARKABLE - Cardiovascular Exam Cardiovascular Exam: +S1, +S2. absent: Bradycardia - GI/Abdominal Exam GI & Abdominal Exam: Soft. absent: Tenderness - Exam External exam: absent: Ecchymosis, Erythema - Extremities Exam Extremities exam: normal capillary refill, normal inspection - Neurological Exam Neurological exam: Alert - Skin Skin Exam: Intact, Normal Color Discharge Plan - Discharge Medications Prescriptions: Folic Acid 1 mg PO DAILY #14 tab hydrOXYzine Pamoate [Vistaril] 50 mg PO Q8 PRN #10 cap PRN Reason: Anxiety Lidocaine 5% [Lidoderm] 1 ea TD DAILY #14 patch Multivitamin Therapeutic Tab [Thera Tab] 1 tab PO DAILY #14 tab Thiamine [Vitamin B1 Tab] 100 mg PO DAILY #14 tab - Follow Up Plan Condition: FAIR Disposition: HOME/ ROUTINE Instructions: Alcohol Intoxication (DC), Abuse of Alcohol (DC), Alcohol Withdrawal (DC), Anxiety (DC), Alcohol Dependence (GEN) Additional Instructions: You are discharged home. You should follow-up with your primary medical physician of choice within a week. You should follow up with [facility] clinic at within a week. You should continue home medications and take the following new medications: Vistaril 50 mg by mouth every 8 hours as needed for anxiety, folic acid one tab by mouth daily, thiamine one tab by mouth daily and multivitamin one tab by mouth daily. Please return to the emergency department for worsening of symptoms. Referrals: Austin Arce MD [Primary Care Provider] - <Christy GOYAL,Lauren - Last Filed: 09/19/16 16:29> Provider - Provider Date of Admission: 09/05/16 12:07 Attending physician: Lauren Harrison MD Primary care physician: Austin Arce MD Hospital Course - Lab Results Lab Results: Most Recent Lab Values WBC 7.8 10^3/ul (4.5-11.0) 09/17/16 07:30 RBC 4.24 10^6/uL (3.5-6.1) 09/17/16 07:30 Hgb 13.5 gm/dL (14.0-18.0) L 09/17/16 07:30 Hct 39.8 % (42.0-52.0) L 09/17/16 07:30 MCV 93.9 fL (80.0-105.0) 09/17/16 07:30 MCH 31.8 pg (25.0-35.0) 09/17/16 07:30 MCHC 33.9 g/dl (31.0-37.0) 09/17/16 07:30 RDW 14.7 % (11.5-14.5) H 09/17/16 07:30 Plt Count 243 10^3/uL (120.0-450.0) 09/17/16 07:30 MPV 9.0 fl (7.0-11.0) 09/17/16 07:30 Gran % 60.3 % (50.0-68.0) 09/17/16 07:30 Lymph % (Auto) 27.8 % (22.0-35.0) 09/17/16 07:30 [place] % (Auto) 9.3 % (1.0-6.0) H 09/17/16 07:30 Eos % (Auto) 2.1 % (1.5-5.0) 09/17/16 07:30 Baso % (Auto) 0.5 % (0.0-3.0) 09/17/16 07:30 Gran # 4.68 (1.4-6.5) 09/17/16 07:30 Lymph # 2.2 (1.2-3.4) 09/17/16 07:30 [place] # 0.7 (0.1-0.6) H 09/17/16 07:30 Eos # 0.2 (0.0-0.7) 09/17/16 07:30 Baso # 0.04 K/mm3 (0.0-2.0) 09/17/16 07:30 Sodium 139 mmol/L (132-148) 09/17/16 07:30 Potassium 4.2 mmol/L (3.6-5.0) 09/17/16 07:30 Chloride 101 mmol/L (98-107) 09/17/16 07:30 Carbon Dioxide 26 mmol/L (21-33) 09/17/16 07:30 Anion Gap 16 (10-20) 09/17/16 07:30 BUN 15 mg/dL (7-21) 09/17/16 07:30 Creatinine 0.8 mg/dL (0.5-1.4) 09/17/16 07:30 Est GFR ( Amer) > 60 09/17/16 07:30 Est GFR (Non-Af Amer) > 60 09/17/16 07:30 Random Glucose 81 mg/dL (70-110) 09/17/16 07:30 Calcium 9.6 mg/dL (8.4-10.5) 09/17/16 07:30 Magnesium 2.0 mg/dL (1.7-2.2) 09/06/16 07:00 Total Bilirubin 0.6 mg/dL (0.2-1.3) 09/17/16 07:30 AST 23 U/L (15-59) 09/17/16 07:30 ALT 25 U/L (7-56) 09/17/16 07:30 Alkaline Phosphatase 74 U/L (38-133) 09/17/16 07:30 Lactate Dehydrogenase 397 U/L (333-699) 09/06/16 07:00 Total Creatine Kinase 35 U/L (35-230) 09/06/16 07:00 Troponin I < 0.01 ng/mL 09/06/16 07:00 Total Protein 7.8 g/dL (5.8-8.3) 09/17/16 07:30 Albumin 4.1 g/dL (3.0-4.8) 09/17/16 07:30 Globulin 3.6 gm/dL 09/17/16 07:30 Albumin/Globulin Ratio 1.1 (1.1-1.8) 09/17/16 07:30 Urine Opiates Screen Negative (NEGATIVE) 09/06/16 20:05 Urine Methadone Screen Negative (NEGATIVE) 09/06/16 20:05 Ur Barbiturates Screen Negative (NEGATIVE) 09/06/16 20:05 Ur Phencyclidine Scrn Negative (NEGATIVE) 09/06/16 20:05 Ur Amphetamines Screen Negative (NEGATIVE) 09/06/16 20:05 U Benzodiazepines Scrn Positive (NEGATIVE) H 09/06/16 20:05 U Oth Cocaine Metabols Negative (NEGATIVE) 09/06/16 20:05 U Cannabinoids Screen Negative (NEGATIVE) 09/06/16 20:05 Alcohol, Quantitative 410 mg/dL (0-10) H* 09/04/16 20:46 Attending/Attestation - Attestation I have personally seen and examined this patient.: Yes I have fully participated in the care of the patient.: Yes I have reviewed all pertinent clinical information, including history, physical exam and plan: Yes Notes (Text): Patient was seen and examined with medical review specialist .Agreed with resident assessment and plan. 65 Yrs old male was admitted with alcohol intoxication , was watched for alcohol withdrawal, has chronic chest pain , work up Chest X ray, EKG and CT Chest is normal.Patient is chronic and constant got better with tyelnol and lidocain patch.Patient was unsteady initially and NATALIE was recommended as patient was not taking part in PT.At the time of discharge, patient is ambulatory with out any assistance. He is at his base line. Management plan was discussed in detail with patient Education was provided.
== END 2016-09-19 15:30 | disposition home or self-care (01) | DRG 750 ==
LOC: ED 19:30 → EROBSV 19:45 → OBSVTOIN 09-05 12:07 → ERH 09-05 12:07 → 2RSO 09-05 21:22 → 5RSO 09-09 17:41
PROVIDERS: ADMIT Internal Medicine; ATTEND Internal Medicine
DX: F10.239 Alcohol dependence with withdrawal, unspecified (principal); J44.9 Chronic obstructive pulmonary disease, unspecified; F19.94 Other psychoactive substance use, unspecified with psychoactive substance-induced mood disorder; I10 Essential (primary) hypertension; F32.89 Other specified depressive episodes; W19.XXXA Unspecified fall, initial encounter; F41.9 Anxiety disorder, unspecified; F10.229 Alcohol dependence with intoxication, unspecified; G89.29 Other chronic pain; R07.89 Other chest pain; K21.9 Gastro-esophageal reflux disease without esophagitis; Y90.8 Blood alcohol level of 240 mg/100 ml or more; Z87.01 Personal history of pneumonia (recurrent); Z87.11 Personal history of peptic ulcer disease; Z90.49 Acquired absence of other specified parts of digestive tract; Z91.19 Patient's noncompliance with other medical treatment and regimen; K29.70 Gastritis, unspecified, without bleeding; R40.2412 Glasgow coma scale score 13-15, at arrival to emergency department; L90.5 Scar conditions and fibrosis of skin; S80.211A Abrasion, right knee, initial encounter; S80.812A Abrasion, left lower leg, initial encounter; S80.811A Abrasion, right lower leg, initial encounter; Z87.81 Personal history of (healed) traumatic fracture; R26.81 Unsteadiness on feet

== ENCOUNTER 2016-10-03 15:45 | Emergency (ER) | payer OTHER, MEDICAID ==
[2016-10-03 23:20] LABS: ALB/GLOB RATIO 1.3 (1.1-1.8); ALKALINE PHOSPHATASE 111 U/L (38-133); ALT/SGPT 46 U/L (7-56); AST/SGOT 80 U/L (15-59); BILIRUBIN,TOTAL 1.1 mg/dL (0.2-1.3); BLOOD UREA NITROGEN 11 mg/dL (7-21); CALCIUM 9.1 mg/dL (8.4-10.5); CARBON DIOXIDE 24 mmol/L (21-33); CHLORIDE 98 mmol/L (98-107); GFR AFRICAN-AMERICAN > 60; GLUCOSE,RANDOM 95 mg/dL (70-110); POTASSIUM 4.3 mmol/L (3.6-5.0); SODIUM 141 mmol/L (132-148); TOTAL PROTEIN 8.7 g/dL (5.8-8.3)
[2016-10-04 00:10] LABS: URINE BILIRUBIN NEGATIVE (NEGATIVE); URINE BLOOD MODERATE (NEGATIVE); URINE GLUCOSE (UA) NEGATIVE (NEGATIVE); URINE KETONE NEGATIVE (NEGATIVE); URINE LEUKOCYTE ESTERASE NEGATIVE Leu/uL (NEGATIVE); URINE PROTEIN 100 mg/dL (<30 mg/dL)
[2016-10-04 00:24] LABS: URINE APPEARANCE SL CLOUDY (CLEAR); URINE COLOR YELLOW (YELLOW)
[2016-10-04 00:27] LABS: URINE BACTERIA FEW (NEG); URINE EPITHELIAL CELLS 0 - 2 /hpf (0-5); URINE WBC 0 - 2 /hpf (0-6)
--- NOTE | 2016-10-04 13:24 | CT ---
PROCEDURE: CT HEAD WITHOUT CONTRAST. HISTORY: COMPARISON: None available. TECHNIQUE: Axial computed tomography images were obtained through the head/brain without intravenous contrast. Radiation dose: Total exam DLP = 774.23 mGy-cm. This CT exam was performed using one or more of the following dose reduction techniques: Automated exposure control, adjustment of the mA and/or kV according to patient size, and/or use of iterative reconstruction technique. FINDINGS: HEMORRHAGE: No intracranial hemorrhage. BRAIN: Encephalomalacia change left frontal region. No atrophy or chronic microvascular ischemic changes. VENTRICLES: Unremarkable. No hydrocephalus. CALVARIUM: Evidence of prior craniotomy left frontal parietal region. PARANASAL SINUSES: Unremarkable as visualized. No significant inflammatory changes. MASTOID AIR CELLS: Unremarkable as visualized. No inflammatory changes. OTHER FINDINGS: Remote nasal bone fractures. IMPRESSION: Additional benign and/or incidental findings described above. Concordant results (preliminary interpretation) provided by [employer]. Procedure Completed: 23:16 Preliminary ([facility]) Report: Dictated and Authenticated: 23:54. Final Interpretation: 08:07. October 04, 2016.
--- NOTE | 2016-10-04 15:39 | RAD ---
HISTORY: COMPARISON: No prior. FINDINGS: LUNGS: No active pulmonary disease. PLEURA: No significant pleural effusion identified, no pneumothorax apparent. CARDIOVASCULAR: Normal. OSSEOUS STRUCTURES: No significant abnormalities. VISUALIZED UPPER ABDOMEN: Normal. OTHER FINDINGS: None. IMPRESSION: No active disease.
== END 2016-10-03 22:58 | disposition home or self-care (01) ==
LOC: ED 15:45
DX: F10.129 Alcohol abuse with intoxication, unspecified (principal); Y90.8 Blood alcohol level of 240 mg/100 ml or more

== ENCOUNTER 2016-10-29 10:05 | Inpatient (IN) | payer OTHER, MEDICAID ==
[2016-10-29] MEDS ORDERED: Sodium Chloride 0.9% 2,000 ML IV STA (10:40)
[2016-10-29] MEDS ORDERED: Folic Acid 1 MG, Thiamine 100 MG, Multivitamin (MVI) 10 ML in Dextrose 5% In Water 1,00... IV SCH (10:45)
--- NOTE | 2016-10-29 10:55 | ED PDOC ---
Arrival/HPI - General Chief Complaint: Altered Mental Status Time Seen by Provider: 10/29/16 10:17 Historian: Patient, EMS EM Caveat: Altered Mental Status - History of Present Illness Narrative History of Present Illness (Text): 10/29/16 11:03 A 66 year old male brought in by EMS to emergency department for poor living conditions with fecal matter all over house. Neighbors called EMS. Patient with altered mental status. Time/Duration: Prior to Arrival Symptom Onset: Sudden Symptom Course: Unchanged Activities at Onset: Rest Context: Home Past Medical History - Provider Review Nursing Documentation Reviewed: Yes - Infectious Disease Hx of Infectious Diseases: None - Tetanus Immunization Tetanus Immunization: Unknown - Past Medical History Past Medical History: Unable to Obtain - Cardiac Hx Cardiac Disorders: Yes Hx Hypertension: Yes - Pulmonary Hx Chronic Obstructive Pulmonary Disease (COPD): Yes - Neurological HX Cerebrovascular Accident: Yes - HEENT Hx HEENT Disorder: Yes - Renal Hx Renal Disorder: No - Endocrine/Metabolic Hx Endocrine Disorders: No - Hematological/Oncological Hx Blood Disorders: No Hx Cancer: No - Integumentary Hx Dermatological Disorder: Yes Other/Comment: multiple long scars to left forearm, multiple abrasions to right knee and b/l lower legs, poor hygiene - Musculoskeletal/Rheumatological Hx Musculoskeletal Disorders: Yes Hx Falls: Yes Hx Fractures: Yes (LEFT HIP,LEFT ARM LEG) Hx Rhabdomyolysis: Yes - Gastrointestinal Hx Gastrointestinal Disorders: Yes Hx Gastroesophageal Reflux: Yes Hx Gastrointestinal Ulcer: Yes - Genitourinary/Gynecological Hx Sexually Transmitted Diseases: No - Psychiatric Hx Psychophysiologic Disorder: Yes Hx Anxiety: Yes Hx Bipolar Disorder: No Hx Depression: Yes Hx Psychosis: Yes Hx Schizophrenia: No Hx Substance Use: No (DENIES) - Past Surgical History Past Surgical History: Unable to Obtain - Surgical History Hx Appendectomy: Yes Hx Cholecystectomy: Yes Hx Orthopedic Surgery: Yes Other/Comment: Left hip sx. Left arm and left leg sx - Anesthesia Hx Anesthesia: Yes Hx Anesthesia Reactions: No Hx Malignant Hyperthermia: No - Suicidal Assessment Feels Threatened In Home Enviroment: No Family/Social History - Physician Review Nursing Documentation Reviewed: Yes Family/Social History: No Known Family HX Smoking Status: Heavy Smoker > 10 Cigarettes Daily Hx Alcohol Use: Yes (DRINKS DAILY VODKA 1.5 LITER) Hx Substance Use: No (DENIES) Hx Substance Use Treatment: Yes Allergies/Home Meds Allergies/Adverse Reactions: Allergies No Known Allergies Allergy (Verified 10/29/16 10:21) Review of Systems - Review of Systems Systems not reviewed;Unavailable: Altered Mental Status Physical Exam - Physical Exam Narrative Physical Exam (Text): 10/29/16 10:49 - Physical exam Patient appears age appropriate, speaking full sentences without difficulty - Systems Exam Head: Present: Atraumatic, Normocephalic Pupils: Present: PERRL Extraocular Muscles: Present: EOMI Conjunctiva: Present: Normal Mouth: Present: Dry mucous membrane Neck: Present: Normal Range of Motion. No: MIDLINE TENDERNESS, Paraspinal Tenderness Respiratory/Chest: Present: Clear to Auscultation, Good Air Exchange. No: Respiratory Distress, Accessory Muscle Use, Tachypnic Cardiovascular: Present: Tachycardic No: Murmurs Abdomen: Present: Normal Bowel Sounds, No: Tenderness, Peritoneal Signs, Rebound, Guarding, Distention Back: Present: Normal Inspection. No: Midline Tenderness, Paraspinal Tenderness Upper Extremity: Present: Normal Inspection. No: Cyanosis, Edema Lower Extremity: Present: Normal Inspection. No: Edema Neurological: Present: GCS=15, Speech Normal, cranial nerves II through XII fully intact with no cerebellar abnormality, neuro-sensory fully intact. No focal neurological deficits. Skin: Present: stage 1 DQ over coccyx (unkept) No: Rashes Lymphatic: Present: OX3, NI, NC Psychiatric: Present: Alert, not anxious Vital Signs Reviewed: Yes Vital Signs Temp Pulse Resp BP Pulse Ox 10/29/16 10:51 99.0 F 122 H 18 119/74 95 10/29/16 10:07 98.9 F 130 H 20 139/59 L 95 Temperature: Afebrile Blood Pressure: Normal Pulse: Tachycardic Respiratory Rate: Normal Appearance: Positive for: Well-Appearing, Non-Toxic, Comfortable Pain Distress: None Medical Decision Making ED Course and Treatment: 10/29/16 10:47 Impression: A 66 year old male with AMS. On physical exam, stage 1 DQ over coccyx, no focal neurological deficits Differential Diagnosis included but are not limited to: rhabdomyolysis vs. dehydration vs AKA Plan: -- CT head -- EKG -- chest xray -- labs -- Urinalysis -- Ativan, IV fluids, Dextrose -- Reassess and disposition Prior Visits: Notes and results from previous visits were reviewed. Patient last reported to the emergency department on 10/03/16 for evaluation of alcohol intoxication. Progress Notes: EKG: Ordered, reviewed, and independently interpreted the EKG. Rate : 127 BPM Rhythm : Sinus tachycardia Interpretation : No ST-segment elevations or depressions Comparison : No previous EKG for comparison. CT HEAD WITHOUT CONTRAST Creator : Zakia Srivastava MD 10/29/2016 11:32 IMPRESSION: No acute intracranial abnormality. 2. Cystic encephalomalacia in the left inferior frontal lobe and paramedian posterior frontal lobe. Old lacunar infarction in the right caudate head. 3. Moderate chronic microangiopathic changes and mild age-related global parenchymal volume loss. chest xray: Creator : Zakia Srivastava MD 10/29/2016 12:21 IMPRESSION: No active pulmonary disease. COPD. 10/29/16 13:37 labs reviewed pt has an elevated anion gap, ketones in urine ABG ordered possible aka hospitalist paged for admission 10/29/16 14:[address] Santizo, accepted admission to telemetry pt in no distress awake and alert protecting his airway - Lab Interpretations Lab Results: 10/29/16 10:41 10/29/16 10:41 Lab Results 10/29/16 13:00: pCO2 25 L, pO2 86.0, HCO3 13.2 L, ABG pH 7.33 L, ABG Total CO2 14.0 L, ABG O2 Saturation 97.0, ABG O2 Content 15.3, ABG Base Excess -11.2 L, ABG Hemoglobin 11.5 L, ABG Carboxyhemoglobin 2.0 H, POC ABG HHb (Measured) 2.9, ABG Methemoglobin 1.3, ABG O2 Capacity 15.8 L, Hgb O2 Saturation 93.8 L, FiO2 21.0 10/29/16 12:15: Urine Color Yellow, Urine Appearance Clear, Urine pH 6.0, Ur Specific Hana >= 1.030, Urine Protein 100 H, Urine Glucose (UA) Negative, Urine Ketones 40 H, Urine Blood Small H, Urine Nitrate Negative, Urine Bilirubin Negative, Urine Urobilinogen 1.0 H, Ur Leukocyte Esterase Negative, Urine RBC 5 - 10, Urine WBC 0 - 2, Ur Epithelial Cells 0 - 2, Urine Bacteria Mod , Hyaline Casts 2 - 5, Fine Granular Casts 0 - 2, Coarse Granular Casts Trace H , Urine Other Fiber 10/29/16 10:41: Total Creatine Kinase 486 H, CK-MB (CK-2) 2.1, CK-MB (CK-2) % Cancelled 10/29/16 10:41: Sodium 143, Potassium 3.9, Chloride 93 L, Carbon Dioxide 12 L, Anion Gap 42 H, BUN 26 H, Creatinine 1.2, Est GFR ( Amer) > 60, Est GFR ( Non-Af Amer) > 60, Random Glucose 96, Calcium 8.7, Total Bilirubin 0.9, AST 162 H, ALT 74 H, Alkaline Phosphatase 148 H, Total Protein 8.2, Albumin 4.7, Globulin 3.5, Albumin/Globulin Ratio 1.3 10/29/16 10:41: PT 10.5, INR 0.97, APTT 27.5 10/29/16 10:41: WBC 11.7 H D, RBC 4.51, Hgb 14.0, Hct 41.6 L, MCV 92.2, MCH 31.0 , MCHC 33.7, RDW 14.3, Plt Count 153, MPV 9.8, Gran % 94.5 H, Lymph % (Auto) 3.7 L, [place] % (Auto) 1.8, Eos % (Auto) 0.0 L, Baso % (Auto) 0.0, Gran # 11.04 H , Lymph # 0.4 L, [place] # 0.2, Eos # 0.0, Baso # 0.00 I have reviewed the lab results: Yes - RAD Interpretation Radiology Orders: 10/29/16 10:41 HEAD W/O CONTRAST [CT] Stat CHEST ONE VIEW [RAD] Stat - EKG Interpretation Interpreted by ED Physician: Yes Type: 12 lead EKG - Medication Orders Current Medication Orders: Folic Acid 1 mg/ Thiamine HCl 100 mg/ Multivitamins/Vitamin C 10 ml/ Dextrose 1 ,011.2 mls @ 100 mls/hr IV .Q10H7M SUMIT Last Admin: 10/29/16 12:07 Dose: 100 mls/hr Dextrose/Sodium Chloride (Dextrose 5%/0.9% Ns 1000 Ml) 1,000 mls @ 100 mls/hr IV .Q10H STA Stop: 10/29/16 23:30 Discontinued Medications Sodium Chloride (Sodium Chloride 0.9%) 2,000 mls @ 1,000 mls/hr IV .Q2H STA Stop: 10/29/16 12:39 Last Admin: 10/29/16 11:24 Dose: 1,000 mls/hr Lorazepam (Ativan) 2 mg IVP ONCE ONE Stop: 10/29/16 10:41 Last Admin: 10/29/16 11:25 Dose: 2 mg - Scribe Statement The provider has reviewed the documentation as recorded by the Nadiya Jeffery Provider Scribe Attestation: All medical record entries made by the Nadiya were at my direction and personally dictated by me. I have reviewed the chart and agree that the record accurately reflects my personal performance of the history, physical exam, medical decision making, and the department course for this patient. I have also personally directed, reviewed, and agree with the discharge instructions and disposition. Disposition/Present on Arrival - Present on Arrival Any Indicators Present on Arrival: No History of DVT/PE: No History of Uncontrolled Diabetes: No Urinary Catheter: No History of Decub. Ulcer: No History Surgical Site Infection Following: None - Disposition Have Diagnosis and Disposition been Completed?: Yes Diagnosis: Alcoholic ketoacidosis Disposition: HOSPITALIZED Disposition Time: 14:13 Patient Plan: Admission Condition: FAIR Referrals: Austin Arce MD [Primary Care Provider] - Follow up with primary
[2016-10-29 11:11] LABS: ADD MANUAL DIFF? NO
[2016-10-29 11:25] LABS: GRAN # 11.04 (1.4-6.5); GRAN % 94.5 % (50.0-68.0); HEMATOCRIT 41.6 % (42.0-52.0); LYMPH # 0.4 (1.2-3.4); LYMPH % 3.7 % (22.0-35.0); MEAN CELL VOLUME 92.2 fL (80.0-105.0); MEAN CORPUSCULAR HGB CONC 33.7 g/dl (31.0-37.0); MEAN PLATELET VOLUME 9.8 fl (7.0-11.0); MONO # 0.2 (0.1-0.6); MONO % 1.8 % (1.0-6.0); PLATELET COUNT 153 10^3/uL (120.0-450.0); RED CELL DISTRIBUTION WIDTH 14.3 % (11.5-14.5); WHITE BLOOD COUNT 11.7 10^3/ul (4.5-11.0)
--- NOTE | 2016-10-29 11:29 | CT ---
PROCEDURE: CT HEAD WITHOUT CONTRAST. HISTORY: AMS COMPARISON: 10/03/2016. TECHNIQUE: Axial computed tomography images were obtained through the head/brain without intravenous contrast. Radiation dose: Total exam DLP = 774.23 mGy-cm. This CT exam was performed using one or more of the following dose reduction techniques: Automated exposure control, adjustment of the mA and/or kV according to patient size, and/or use of iterative reconstruction technique. FINDINGS: HEMORRHAGE: No intracranial hemorrhage. BRAIN: Again seen is cystic encephalomalacia in the left inferior frontal lobe predominantly in the subcortical white matter and left paramedian posterior parietal lobe. . There is an old lacunar infarction the right caudate head. There are moderate chronic microangiopathic changes. There is no mass, mass effect or abnormal extra-axial fluid collection. VENTRICLES: There is mild age-related global parenchymal volume loss and proportionate enlargement of the ventricles and cortical sulci. CALVARIUM: The skull base and calvarium are normal. PARANASAL SINUSES: There is a retention cyst/ polyp in the left maxillary sinus. The remaining included paranasal sinuses are predominantly clear. MASTOID AIR CELLS: Predominantly clear. OTHER FINDINGS: There are old fracture deformities in the nasal bones. IMPRESSION: No acute intracranial abnormality. 2. Cystic encephalomalacia in the left inferior frontal lobe and paramedian posterior frontal lobe. Old lacunar infarction in the right caudate head. 3. Moderate chronic microangiopathic changes and mild age-related global parenchymal volume loss.
[2016-10-29 11:30] LABS: ALB/GLOB RATIO 1.3 (1.1-1.8); ALKALINE PHOSPHATASE 148 U/L (38-133); ALT/SGPT 74 U/L (7-56); AST/SGOT 162 U/L (15-59); BILIRUBIN,TOTAL 0.9 mg/dL (0.2-1.3); BLOOD UREA NITROGEN 26 mg/dL (7-21); CALCIUM 8.7 mg/dL (8.4-10.5); CARBON DIOXIDE 12 mmol/L (21-33); CHLORIDE 93 mmol/L (98-107); GFR AFRICAN-AMERICAN > 60; GLUCOSE,RANDOM 96 mg/dL (70-110); POTASSIUM 3.9 mmol/L (3.6-5.0); SODIUM 143 mmol/L (132-148); TOTAL PROTEIN 8.2 g/dL (5.8-8.3)
[2016-10-29 11:35] LABS: INR 0.97 (0.93-1.08); PARTIAL THROMBOPLASTIN TIME 27.5 Seconds (23.7-30.8)
--- NOTE | 2016-10-29 12:19 | RAD ---
PROCEDURE: CHEST RADIOGRAPH, 1 VIEW HISTORY: Cough COMPARISON: 09/06/2016 FINDINGS: LUNGS: The lungs are hyperinflated and there is peribronchial thickening with chronic changes in both lungs. There is no lobar pneumonia. PLEURA: No pneumothorax or pleural fluid seen. CARDIOVASCULAR: Normal. OSSEOUS STRUCTURES: No significant abnormalities. VISUALIZED UPPER ABDOMEN: Normal. OTHER FINDINGS: None. IMPRESSION: No active pulmonary disease. COPD.
[2016-10-29 12:24] LABS: URINE BILIRUBIN NEGATIVE (NEGATIVE); URINE BLOOD SMALL (NEGATIVE); URINE GLUCOSE (UA) NEGATIVE (NEGATIVE); URINE KETONE 40 mg/dL (NEGATIVE); URINE LEUKOCYTE ESTERASE NEGATIVE Leu/uL (NEGATIVE); URINE PROTEIN 100 mg/dL (<30 mg/dL)
[2016-10-29 12:26] LABS: URINE APPEARANCE CLEAR (CLEAR); URINE COLOR YELLOW (YELLOW)
[2016-10-29 12:44] LABS: URINE EPITHELIAL CELLS 0 - 2 /hpf (0-5); URINE WBC 0 - 2 /hpf (0-6)
[2016-10-29 12:45] LABS: URINE BACTERIA MOD (NEG)
[2016-10-29] MEDS ORDERED: Dextrose 5%/0.9% NS 1,000 ML IV STA (13:31)
[2016-10-29 13:51] LABS: ARTERIAL BLOOD GAS HCO3 13.2 mmol/L (21-28); ARTERIAL BLOOD GAS O2 CAPACITY 15.8 mL/dl (16-24); ARTERIAL BLOOD GAS O2 CONTENT 15.3 ML/dl (15-23); ARTERIAL BLOOD GAS PH 7.33 (7.35-7.45); ARTERIAL BLOOD HGB O2 SAT 93.8 % (95.0-98.0); HHB 2.9 % (0-5); METHEMOGLOBIN 1.3 % (0.0-3.0)
[2016-10-29] MEDS ORDERED: cefTRIAXone 1 gm 1 GM/100 ML BAG IVPB STA (15:00)
--- NOTE | 2016-10-29 15:06 | CP.PCM.HP ---
<Lalo Cat - Last Filed: 10/29/16 15:02> History of Present Illness - History of Present Illness History of Present Illness: This is a 66 yo male with past medical hx of alcoholism, GERD, gastritis presenting from home with altered mental status. Very limited history obtained due to patient's mental status and intoxication. Alcohol level 349 in ER. Apparently pt's neighbors called police because smell coming from pt's home was intolerable. EMS found pt in home, altered, covered in fecal matter. Pt is unable to answer basic questions during evaluation. He is unkempt in appearance with multiple skin abrasions and looks cachetic. Further hx obtained through previous records. PMH: alcoholism, gerd, gastritis PSH: cholecystectomy, appendectomy Allergies: NKDA FH: unknown Social hx: Current smoker. Alcoholic. Unknown if other illicit drug use. Lives alone. Present on Admission - Present on Admission Any Indicators Present on Admission: No History of DVT/PE: No History of Uncontrolled Diabetes: No Urinary Catheter: No Decubitus Ulcer Present: No Review of Systems - Review of Systems Systems not reviewed;Unavailable: Altered Mental Status Past Patient History - Infectious Disease Hx of Infectious Diseases: None - Tetanus Immunizations Tetanus Immunization: Unknown - Past Medical History & Family History Past Medical History?: Yes Past Family History: Reviewed and not pertinent - Past Social History Smoking Status: Heavy Smoker > 10 Cigarettes Daily Chewing Tobacco Use: No Cigar Use: No Alcohol: > 2 Drinks/Day Drugs: Denies Home Situation {Lives}: Alone Domestic Violence: Negative - CARDIAC Hx Cardiac Disorders: Yes Hx Hypertension: Yes - PULMONARY Hx Chronic Obstructive Pulmonary Disease (COPD): Yes - NEUROLOGICAL HX Cerebrovascular Accident: Yes - HEENT Hx HEENT Problems: Yes - RENAL Hx Chronic Kidney Disease: No - ENDOCRINE/METABOLIC Hx Endocrine Disorders: No - HEMATOLOGICAL/ONCOLOGICAL Hx Blood Disorders: No Hx Cancer: No - INTEGUMENTARY Hx Dermatological Problems: Yes Other/Comment: multiple long scars to left forearm, multiple abrasions to right knee and b/l lower legs, poor hygiene - MUSCULOSKELETAL/RHEUMATOLOGICAL Hx Musculoskeletal Disorders: Yes Hx Falls: Yes Hx Fractures: Yes (LEFT HIP,LEFT ARM LEG) Hx Rhabdomyolysis: Yes - GASTROINTESTINAL Hx Gastrointestinal Disorders: Yes Hx Gastroesophageal Reflux: Yes - GENITOURINARY/GYNECOLOGICAL Hx Sexually Transmitted Disorders: No - PSYCHIATRIC Hx Psychophysiologic Disorder: Yes Hx Anxiety: Yes Hx Bipolar Disorder: No Hx Depression: Yes Hx Psychosis: Yes Hx Schizophrenia: No Hx Substance Use: No (DENIES) - SURGICAL HISTORY Hx Appendectomy: Yes Hx Cholecystectomy: Yes Hx Orthopedic Surgery: Yes Other/Comment: Left hip sx. Left arm and left leg sx - ANESTHESIA Hx Anesthesia: Yes Hx Anesthesia Reactions: No Hx Malignant Hyperthermia: No Meds Allergies/Adverse Reactions: Allergies Allergy/AdvReac Type Severity Reaction Status Date / Time No Known Allergies Allergy Verified 10/29/16 10:21 Physical Exam - Constitutional Appears: Unkempt, Confused, Cachectic - Head Exam Head Exam: absent: NORMAL INSPECTION Additional comments: Pt has sutures on face - Eye Exam Eye Exam: EOMI - ENT Exam ENT Exam: Mucous Membranes Dry - Neck Exam Neck exam: Positive for: Full Rom, Normal Inspection - Respiratory Exam Respiratory Exam: NORMAL BREATHING PATTERN. absent: Respiratory Distress - Cardiovascular Exam Cardiovascular Exam: Tachycardia, +S1, +S2 - GI/Abdominal Exam GI & Abdominal Exam: Normal Bowel Sounds, Soft. absent: Tenderness - Extremities Exam Extremities exam: Negative for: full ROM, normal inspection Additional comments: Multiple abrasions along B/L lower extremities - Neurological Exam Neurological exam: Altered - Psychiatric Exam Additional comments: Unable to assess - Skin Skin Exam: Rash Additional comments: Fungal rash in groin area. Results - Vital Signs Recent Vital Signs: Last Vital Signs Temp 99.0 F 10/29/16 10:51 Pulse 109 H 10/29/16 14:27 Resp 20 10/29/16 14:27 BP 127/75 10/29/16 14:27 Pulse Ox 94 L 10/29/16 14:27 - Labs Result Diagrams: 10/29/16 10:41 10/29/16 10:41 Assessment & Plan - Assessment and Plan (Free Text) Assessment: This is a 66 yo male with past medical hx of alcoholism, gerd, gastritis presenting with alcoholic intoxication, ams, and ketones in urine 1. Alcoholic ketoacidosis -start banana bag with MVs, thiamine, folic acid -will start D5 NS -IV rocephin for skin abrasion -telemetry bed -trop pending -urine drug screen pending -alc level 349 -[facility] protocol ativan 1 q 4 prn -fall precautions -aspiration precautions -seizure precautions 2. Rash in groin -will add topical antifungal 3. GI/DVT ppx -protonix 40 daily -scds discussed with Dr. Santizo <DarlynChris - Last Filed: 10/29/16 17:48> Results - Vital Signs Recent Vital Signs: Last Vital Signs Temp 99.0 F 10/29/16 10:51 Pulse 96 H 10/29/16 16:00 Resp 20 10/29/16 16:00 BP 125/55 L 10/29/16 16:00 Pulse Ox 94 L 10/29/16 16:00 - Labs Result Diagrams: 10/29/16 10:41 10/29/16 10:41 Attending/Attestation - Attestation I have personally seen and examined this patient.: Yes I have fully participated in the care of the patient.: Yes I have reviewed all pertinent clinical information: Yes Notes (Text): 10/29/16 17:37 Attending note; Patient seen and examined with resident in ER. Patient was brought in by EMS to emergency department for poor living conditions with fecal matter all over house. Neighbors called EMS. Patient with altered mental status. Patient is currently alert and awake. Poor historian. Acute alcohol intoxication with alcohol level of 349. Also significant alcoholic ketoacidosis. Continue IV fluids with multivitamin, thiamine, folic acid. CIWA protocaol. IV Ativan for withdrawal symptoms. Follow-up BMP. CT head is negative for any acute ischemic changes. Showed chronic microvascular disease. Monitored mental status closely. Patient with a history of mild cognitive dysfunction. Multiple abrasions in knees and foot. started on IV rocephin. Follow-up culture results. cement worker evaluation requested for discharge planning.
[2016-10-29 17:36] VITALS: BMI 17.2
[2016-10-29] MEDS ORDERED: Pneumococcal 23-Valent Vaccine IM ONE (17:36)
[2016-10-29] MEDS: Folic Acid 1 MG, Thiamine 100 MG, Multivitamin (MVI) 10 ML, Potassium Chloride 40 MEQ i... IV SCH (17:44)
[2016-10-29] MEDS ORDERED: Bacitracin 500 Units/gm Oint Foilpak UD TOP SCH ×2 (18:00)
[2016-10-29 18:03] LABS: BLOOD UREA NITROGEN 21 mg/dL (7-21); CALCIUM 7.5 mg/dL (8.4-10.5); CARBON DIOXIDE 15 mmol/L (21-33); CHLORIDE 93 mmol/L (98-107); GFR AFRICAN-AMERICAN > 60; GLUCOSE,RANDOM 203 mg/dL (70-110); MAGNESIUM 1.8 mg/dL (1.7-2.2); POTASSIUM 4.1 mmol/L (3.6-5.0); SODIUM 133 mmol/L (132-148)
[2016-10-29 18:15] LABS: TROPONIN I 0.03 ng/mL
[2016-10-29] MEDS: Bacitracin Ointment 30 GM TUBE TOP SCH (18:32)
[2016-10-29] MEDS: Nystatin 100,000 Units/gm Topical Pow(15 gm) TOP SCH (18:33)
--- NOTE | 2016-10-29 22:28 | CARD ---
APPROVED REPORT EKG Measurement Heart [id number] <Conclusion> Sinus tachycardia Voltage criteria for left ventricular hypertrophy Abnormal ECG
[2016-10-30] MEDS: Folic Acid 1 MG, Thiamine 100 MG, Multivitamin (MVI) 10 ML, Potassium Chloride 40 MEQ i... IV SCH ×2 (04:15→17:38)
[2016-10-30 10:03] LABS: ADD MANUAL DIFF? NO
[2016-10-30 10:17] LABS: BASO # 0.01 K/mm3 (0.0-2.0); BASO % 0.1 % (0.0-3.0); GRAN # 9.08 (1.4-6.5); GRAN % 83.9 % (50.0-68.0); HEMATOCRIT 34.3 % (42.0-52.0); LYMPH # 0.9 (1.2-3.4); LYMPH % 8.1 % (22.0-35.0); MEAN CORPUSCULAR HGB CONC 34.4 g/dl (31.0-37.0); MEAN PLATELET VOLUME 10.1 fl (7.0-11.0); MONO # 0.9 (0.1-0.6); MONO % 7.9 % (1.0-6.0); PLATELET COUNT 101 10^3/uL (120.0-450.0); RED CELL DISTRIBUTION WIDTH 13.9 % (11.5-14.5); WHITE BLOOD COUNT 10.8 10^3/ul (4.5-11.0)
[2016-10-30 10:24] LABS: ALB/GLOB RATIO 1.3 (1.1-1.8); ALKALINE PHOSPHATASE 114 U/L (38-133); ALT/SGPT 63 U/L (7-56); AST/SGOT 107 U/L (15-59); BILIRUBIN,TOTAL 1.7 mg/dL (0.2-1.3); BLOOD UREA NITROGEN 15 mg/dL (7-21); CALCIUM 8.9 mg/dL (8.4-10.5); CARBON DIOXIDE 27 mmol/L (21-33); CHLORIDE 92 mmol/L (98-107); GFR AFRICAN-AMERICAN > 60; GLUCOSE,RANDOM 170 mg/dL (70-110); MAGNESIUM 1.6 mg/dL (1.7-2.2); POTASSIUM 3.8 mmol/L (3.6-5.0); SODIUM 131 mmol/L (132-148); TOTAL PROTEIN 6.5 g/dL (5.8-8.3)
[2016-10-30 10:32] LABS: PHOSPHOROUS 1.1 mg/dL (2.5-4.5)
[2016-10-30] MEDS: Bacitracin Ointment 30 GM TUBE TOP SCH ×2 (10:58→17:35)
[2016-10-30] MEDS: Nystatin 100,000 Units/gm Topical Pow(15 gm) TOP SCH ×2 (10:58→17:35)
[2016-10-30] MEDS ORDERED: Vancomycin 1gm in NS 250ml 1 GM/250 ML BAG IVPB SCH (12:15)
[2016-10-30] MEDS: Vancomycin 750mg 750 MG/250 ML BAG IVPB SCH (13:07)
--- NOTE | 2016-10-30 13:24 | CP.PCM.PN ---
<Lalo Cat - Last Filed: 10/30/16 13:25> Subjective - Date & Time of Evaluation Date of Evaluation: 10/30/16 Time of Evaluation: 13:20 - Subjective Subjective: Medicine progress note. Attending: Dr. Santizo Pt seen and examined at bedside. No acute distress. No events overnight. CIWA 4 this morning. No fevers, chills, vomiting, diarrhea. Pt not lucid as he alternates between Persian and [place]. ROS limited. Blood cultures positive. Objective - Vital Signs/Intake and Output Vital Signs (last 24 hours): Temp Pulse Resp BP Pulse Ox 99 F 85 16 120/70 99 10/30/16 11:47 10/30/16 11:47 10/30/16 11:47 10/30/16 11:47 10/30/16 06:00 Intake and Output: 10/30/16 10/30/16 06:59 18:59 Intake Total 0 0 Output Total 850 850 Balance -850 -850 - Medications Medications: Current Medications Bacitracin (Bacitracin) 0 gm TOP BID [facility] Last Admin: 10/30/16 10:58 Dose: 1 applic Folic Acid 1 mg/ Thiamine HCl 100 mg/ Multivitamins/Vitamin C 10 ml/ Potassium Chloride 40 meq/ Dextrose 1,031.2 mls @ 100 mls/hr IV .[id number] [facility] Last Admin: 10/30/16 04:15 Dose: 100 mls/hr Vancomycin HCl (Vancomycin 750 Mg In Ns) 750 mg in 250 mls @ 167 mls/hr IVPB Q12H [facility] PRN Reason: Protocol Last Admin: 10/30/16 13:07 Dose: 167 mls/hr Vancomycin HCl 1.5 gm/ Sodium (Chloride) 250 mls @ 167 mls/hr IVPB ONCE ONE PRN Reason: Protocol Stop: 10/31/16 01:24 Lorazepam (Ativan) 1 mg IVP Q4 PRN; Protocol PRN Reason: Seizure activity Last Admin: 10/30/16 12:08 Dose: 1 mg Nystatin (Nystop Topical Powder) 0 gm TOP BID [facility] Last Admin: 10/30/16 10:58 Dose: 1 applic Pantoprazole Sodium (Protonix Inj) 40 mg IVP DAILY [facility] Last Admin: 10/30/16 10:57 Dose: 40 mg - Labs Labs: 10/30/16 10:02 10/30/16 10:02 PT 10.5 Seconds (9.9-11.8) 10/29/16 10:41 INR 0.97 (0.93-1.08) 10/29/16 10:41 APTT 27.5 Seconds (23.7-30.8) 10/29/16 10:41 - Constitutional Appears: Non-toxic, No Acute Distress, Unkempt, Cachectic - Head Exam Head Exam: absent: NORMAL INSPECTION - Eye Exam Eye Exam: EOMI - ENT Exam ENT Exam: Mucous Membranes Moist - Neck Exam Neck Exam: Full ROM, Normal Inspection - Respiratory Exam Respiratory Exam: NORMAL BREATHING PATTERN. absent: Respiratory Distress - Cardiovascular Exam Cardiovascular Exam: +S1, +S2 - GI/Abdominal Exam GI & Abdominal Exam: Soft, Normal Bowel Sounds. absent: Tenderness - Extremities Exam Extremities Exam: absent: Full ROM, Normal Inspection Additional comments: Multiple abrasions along b/l lower extremities - Neurological Exam Neurological Exam: Altered, Awake. absent: Oriented x3 - Psychiatric Exam Psychiatric exam: Flat Affect - Skin Skin Exam: Abrasion Assessment and Plan - Assessment and Plan (Free Text) Assessment: This is a 66 yo male with past medical hx of alcoholism, gerd, gastritis presenting with alcoholic intoxication, ams, and ketones in urine 1. Alcoholic ketoacidosis -continue banana bag with MVs, thiamine, folic acid -telemetry bed -trop neg x 1 -urine drug screen positive for benzos -alc level 349 -wa protocol ativan 1 q 4 prn -fall precautions -aspiration precautions -seizure precautions -will add pureed diet 2. Positive blood culture -2 positive blood cultures -ID consult. Dr. Chowdary. recs appreciated. -IV vancomycin 1 g daily 3. Rash in groin -will add topical antifungal 4. GI/DVT ppx -protonix 40 daily -scds discussed with Dr. Santizo <Chris Santizo - Last Filed: 10/30/16 17:30> Objective - Vital Signs/Intake and Output Vital Signs (last 24 hours): Temp Pulse Resp BP Pulse Ox 99 F 115 H 16 120/70 99 10/30/16 11:47 10/30/16 14:00 10/30/16 11:47 10/30/16 11:47 10/30/16 06:00 Intake and Output: 10/30/16 10/30/16 06:59 18:59 Intake Total 0 240 Output Total 850 1350 Balance -850 -1110 - Medications Medications: Current Medications Bacitracin (Bacitracin) 0 gm TOP BID [facility] Last Admin: 10/30/16 10:58 Dose: 1 applic Folic Acid (Folic Acid) 1 mg PO DAILY [facility] Last Admin: 10/30/16 16:09 Dose: 1 mg Vancomycin HCl (Vancomycin 750 Mg In Ns) 750 mg in 250 mls @ 167 mls/hr IVPB Q12H [facility] PRN Reason: Protocol Last Admin: 10/30/16 13:07 Dose: 167 mls/hr Vancomycin HCl 1.5 gm/ Sodium (Chloride) 250 mls @ 167 mls/hr IVPB ONCE ONE PRN Reason: Protocol Stop: 10/31/16 01:24 Potassium Phosphate 30 mmole/ (Sodium Chloride) 260 mls @ 42.5 mls/hr IVPB ONCE ONE Stop: 10/30/16 21:46 Lorazepam (Ativan) 1 mg IVP Q4 PRN; Protocol PRN Reason: Seizure activity Last Admin: 10/30/16 16:09 Dose: 1 mg Multivitamins/Minerals (Therapeutic-M Tab) 1 tab PO 0800 [facility] Nystatin (Nystop Topical Powder) 0 gm TOP BID [facility] Last Admin: 10/30/16 10:58 Dose: 1 applic Pantoprazole Sodium (Protonix Inj) 40 mg IVP DAILY [facility] Last Admin: 10/30/16 10:57 Dose: 40 mg Potassium Phos/Sodium Phos (Neutra-Phos) 1 pkt PO TID [facility] Thiamine HCl (Vitamin B1 Tab) 100 mg PO DAILY [facility] Last Admin: 10/30/16 16:09 Dose: 100 mg - Labs Labs: 10/30/16 10:02 10/30/16 10:02 PT 10.5 Seconds (9.9-11.8) 10/29/16 10:41 INR 0.97 (0.93-1.08) 10/29/16 10:41 APTT 27.5 Seconds (23.7-30.8) 10/29/16 10:41 Attending/Attestation - Attestation I have personally seen and examined this patient.: Yes I have fully participated in the care of the patient.: Yes I have reviewed all pertinent clinical information, including history, physical exam and plan: Yes Notes (Text): 10/30/16 17:28 Attending note; Patient seen and examined with resident. Patient is currently alert and awake. Able to communicate. Asking for food. Not in any acute distress. alcoholic ketoacidosis.Resolving . Continue multivitamin, thiamine, folic acid. Hypophosphatemia ; IV supplementation given . CT head is negative for any acute ischemic changes. Showed chronic microvascular disease. Monitored mental status closely. Patient with a history of mild cognitive dysfunction. Multiple abrasions in knees and foot. started on IV rocephin. Blood culture is positive for gram-positive cocci. bilingual patient support caseworker evaluation requested for discharge planning. Monitor closely for withdrawal symptoms.
[2016-10-30] MEDS ORDERED: Potassium & Sodium Phosphate PO ONE (15:34)
[2016-10-30] MEDS ORDERED: Potassium Phosphate 30 MMOLE in Sodium Chloride 0.9% 250 ML IVPB ONE (15:39)
--- NOTE | 2016-10-30 20:58 | CP.PCM.CON ---
History of Present Illness - History of Present Illness History of Present Illness: 66 year old male with PMH of chronic alcoholism, GERD, gastritis, S/P cholecystectomy, S/P appendectomy was brought in to [facility] because of altered mental status after neighbors called in and EMS saw the patient lethargic and covered in feces. The patient is now more awake and alert but still with bouts of confusion as well as agitation and shakiness. There is no note of fever, no convulsions, no vomiting, no diarrhea. The patient answers simple questions but there is difficulty in understanding him completely because of language barrier. Blood cx were part of the initial work up and now is showing gram positive cocci. Infectious Diseases consult is requested to further evaluate and manage. Review of Systems - Review of Systems Systems not reviewed;Unavailable: Language Barrier Past Patient History - Infectious Disease Hx of Infectious Diseases: None - Tetanus Immunizations Tetanus Immunization: Unknown - Past Medical History & Family History Past Medical History?: Yes Past Family History: Reviewed and not pertinent - Past Social History Smoking Status: Heavy Smoker > 10 Cigarettes Daily - CARDIAC Hx Cardiac Disorders: Yes Hx Hypertension: Yes - PULMONARY Hx Chronic Obstructive Pulmonary Disease (COPD): Yes Hx Pneumonia: Yes (01/06/15) - NEUROLOGICAL HX Cerebrovascular Accident: Yes - HEENT Hx HEENT Problems: Yes (nasal deformity boxing injury) - RENAL Hx Chronic Kidney Disease: No - ENDOCRINE/METABOLIC Hx Endocrine Disorders: No - HEMATOLOGICAL/ONCOLOGICAL Hx Blood Disorders: No Hx Cancer: No - INTEGUMENTARY Hx Dermatological Problems: Yes Other/Comment: multiple long scars to left forearm, multiple abrasions to both knees and b/l lower legs, poor hygiene,red rash to groin reddened scrotum, 2 small abrasions to forehead and stitches to abrasion between eyebrows, tatoo left arm, left elbow abrasion, multiple abrasions to b/l feet, left foot 2nd toenail black, scrape andreddened, reddened buttocks, and multiple red wounds to sacrum small amt bleeding noted, tip of r great toe small dry wound surrounded by dry skin, poor hygeine - MUSCULOSKELETAL/RHEUMATOLOGICAL Hx Musculoskeletal Disorders: Yes (rhabdomylysis) Hx Falls: Yes (multiple abrasions) Hx Fractures: Yes (LEFT HIP,LEFT ARM LEG) Hx Rhabdomyolysis: Yes Hx Unsteady Gait: Yes Other/Comment: left hip left arm left leg fx - GASTROINTESTINAL Hx Gastrointestinal Disorders: Yes (gastritis) Hx Gastroesophageal Reflux: Yes Hx Ulcer: Yes - GENITOURINARY/GYNECOLOGICAL Hx Sexually Transmitted Disorders: No - PSYCHIATRIC Hx Psychophysiologic Disorder: Yes Hx Anxiety: Yes Hx Bipolar Disorder: No Hx Depression: Yes Hx Panic Symptoms: Yes Hx Psychosis: Yes Hx Schizophrenia: No Hx Substance Use: No Other/Comment: 1.5 liters vodka daily, suicide attempt 40 yrs ago - SURGICAL HISTORY Hx Appendectomy: Yes Hx Cholecystectomy: Yes Hx Orthopedic Surgery: Yes Other/Comment: left femur metal implant, fell off roof of house, sx to left elbow, left hip, left arm - ANESTHESIA Hx Anesthesia: Yes Hx Anesthesia Reactions: No Hx Malignant Hyperthermia: No Meds Allergies/Adverse Reactions: Allergies Allergy/AdvReac Type Severity Reaction Status Date / Time No Known Allergies Allergy Verified 10/29/16 10:21 - Medications Medications: Current Medications Bacitracin (Bacitracin) 0 gm TOP BID [facility] Last Admin: 10/30/16 10:58 Dose: 1 applic Folic Acid 1 mg/ Thiamine HCl 100 mg/ Multivitamins/Vitamin C 10 ml/ Potassium Chloride 40 meq/ Dextrose 1,031.2 mls @ 100 mls/hr IV .[id number] [facility] Last Admin: 10/30/16 04:15 Dose: 100 mls/hr Vancomycin HCl (Vancomycin 1gm) 1 gm in 250 mls @ 167 mls/hr IVPB DAILY [facility] PRN Reason: Protocol Lorazepam (Ativan) 1 mg IVP Q4 PRN; Protocol PRN Reason: Seizure activity Last Admin: 10/30/16 12:08 Dose: 1 mg Nystatin (Nystop Topical Powder) 0 gm TOP BID [facility] Last Admin: 10/30/16 10:58 Dose: 1 applic Pantoprazole Sodium (Protonix Inj) 40 mg IVP DAILY [facility] Last Admin: 10/30/16 10:57 Dose: 40 mg Physical Exam - Constitutional Appears: Non-toxic, No Acute Distress - Head Exam Head Exam: NORMAL INSPECTION - ENT Exam ENT Exam: Mucous Membranes Moist - Neck Exam Neck exam: Negative for: Lymphadenopathy, Meningismus - Respiratory Exam Respiratory Exam: Decreased Breath Sounds - Cardiovascular Exam Cardiovascular Exam: +S1, +S2 - GI/Abdominal Exam GI & Abdominal Exam: Soft. absent: Tenderness Results - Vital Signs Recent Vital Signs: Last Vital Signs Temp 99 F 10/30/16 11:47 Pulse 85 10/30/16 11:47 Resp 16 10/30/16 11:47 BP 120/70 10/30/16 11:47 Pulse Ox 99 10/30/16 06:00 - Labs Result Diagrams: 10/30/16 10:02 10/30/16 10:02 Labs: Laboratory Results - last 24 hr 10/29/16 10/29/16 10/30/16 17:35 17:35 10:02 WBC 10.8 RBC 3.81 Hgb 11.8 L Hct 34.3 L MCV 90.0 MCH 31.0 MCHC 34.4 RDW 13.9 Plt Count 101 L MPV 10.1 Gran % 83.9 H Lymph % (Auto) 8.1 L Cowley % (Auto) 7.9 H Eos % (Auto) 0.0 L Baso % (Auto) 0.1 Gran # 9.08 H Lymph # 0.9 L Cowley # 0.9 H Eos # 0.0 Baso # 0.01 Sodium 133 Potassium 4.1 Chloride 93 L Carbon Dioxide 15 L Anion Gap 29 H BUN 21 Creatinine 0.7 Est GFR ( Amer) > 60 Est GFR (Non-Af Amer) > 60 Random Glucose 203 H Calcium 7.5 L Phosphorus Magnesium 1.8 Total Bilirubin AST ALT Alkaline Phosphatase Lactate Dehydrogenase 704 H Troponin I 0.03 D Total Protein Albumin Globulin Albumin/Globulin Ratio Urine Opiates Screen Negative Urine Methadone Screen Negative Ur Barbiturates Screen Negative Ur Phencyclidine Scrn Negative Ur Amphetamines Screen Negative U Benzodiazepines Scrn Positive H U Oth Cocaine Metabols Negative U Cannabinoids Screen Negative 10/30/16 10:02 WBC RBC Hgb Hct MCV MCH MCHC RDW Plt Count MPV Gran % Lymph % (Auto) Cowley % (Auto) Eos % (Auto) Baso % (Auto) Gran # Lymph # Cowley # Eos # Baso # Sodium 131 L Potassium 3.8 Chloride 92 L Carbon Dioxide 27 Anion Gap 16 BUN 15 Creatinine 0.5 Est GFR ( Amer) > 60 Est GFR (Non-Af Amer) > 60 Random Glucose 170 H Calcium 8.9 Phosphorus 1.1 L* Magnesium 1.6 L Total Bilirubin 1.7 H AST 107 H ALT 63 H Alkaline Phosphatase 114 Lactate Dehydrogenase Troponin I Total Protein 6.5 Albumin 3.7 Globulin 2.8 Albumin/Globulin Ratio 1.3 Urine Opiates Screen Urine Methadone Screen Ur Barbiturates Screen Ur Phencyclidine Scrn Ur Amphetamines Screen U Benzodiazepines Scrn U Oth Cocaine Metabols U Cannabinoids Screen Assessment & Plan - Assessment and Plan (Free Text) Plan: Assessment Gram positive cocci bacteremia, source yet to be determined, R/O contamination Probable alcohol withdrawal syndrome chronic alcoholism GERD gastritis S/P cholecystectomy S/P appendectomy Plan Started Vancomycin pending identification and sensitivities of the gram positive cocci in the blood cx; follow up repeat blood cx will monitor clinically
[2016-10-31] MEDS: Vancomycin 750mg 750 MG/250 ML BAG IVPB SCH ×2 (03:22→15:06)
[2016-10-31 09:14] LABS: ADD MANUAL DIFF? NO
--- NOTE | 2016-10-31 09:22 | PN ---
DATE: 10/31/2016 The patient is in bed in no acute distress. PHYSICAL EXAMINATION: VITAL SIGNS: Temperature is 98. Blood pressure is 115/70, respiratory rate of 16. HEENT: Unremarkable. NECK: Supple. LUNGS: Have decreased breath sounds. HEART: Normal S1, S2. ABDOMEN: Soft, nontender. LABORATORY EXAMINATION: Reveals the white count of 10,000, hemoglobin of 11, platelets of 101. Chem istries reveal the BUN of 15, creatinine of 0.5. LFTs are noted. Microbiology is noted. There is a gram-positive cocci in the blood cultures. Coag negative staph by PNA FISH. Review of the orders reveals that the patient's repeat blood cultures ordered today by Dr. Chavis are pending. The patient is currently on vancomycin. ASSESSMENT AND PLAN: This is a 66-year-old male with chronic alcoholism, gastroesophageal reflux dis ease, gastritis, history of cholecystectomy, history of appendectomy with a gram-positive cocci bacte remia, most likely a contamination in this patient who has coag negative, but it is 2 bottles. We wi ll check on the repeat cultures and continue the vancomycin for now pending initial workup results. Roque Chowdary MD cc: [id number] TT: 10/31/2016 09:21:40 Confirmation # [id number] Dictation # [id number] isabell
[2016-10-31 09:28] LABS: ALB/GLOB RATIO 1.1 (1.1-1.8); ALKALINE PHOSPHATASE 117 U/L (38-133); ALT/SGPT 60 U/L (7-56); AST/SGOT 100 U/L (15-59); BILIRUBIN,TOTAL 1.4 mg/dL (0.2-1.3); BLOOD UREA NITROGEN 11 mg/dL (7-21); CALCIUM 9.4 mg/dL (8.4-10.5); CARBON DIOXIDE 32 mmol/L (21-33); CHLORIDE 89 mmol/L (98-107); GFR AFRICAN-AMERICAN > 60; GLUCOSE,RANDOM 85 mg/dL (70-110); MAGNESIUM 1.5 mg/dL (1.7-2.2); PHOSPHOROUS 2.7 mg/dL (2.5-4.5); POTASSIUM 3.1 mmol/L (3.6-5.0); SODIUM 131 mmol/L (132-148); TOTAL PROTEIN 7.5 g/dL (5.8-8.3)
[2016-10-31 09:40] LABS: TROPONIN I < 0.01 ng/mL
[2016-10-31 09:41] LABS: EOS % 0.3 % (1.5-5.0); GRAN # 7.12 (1.4-6.5); GRAN % 80.1 % (50.0-68.0); HEMATOCRIT 36.8 % (42.0-52.0); LYMPH # 1.2 (1.2-3.4); LYMPH % 13.3 % (22.0-35.0); MEAN CELL VOLUME 90.2 fL (80.0-105.0); MEAN CORPUSCULAR HEMOGLOBIN 30.6 pg (25.0-35.0); MONO # 0.6 (0.1-0.6); MONO % 6.3 % (1.0-6.0); PLATELET COUNT 97 10^3/uL (120.0-450.0); RED CELL DISTRIBUTION WIDTH 13.9 % (11.5-14.5); WHITE BLOOD COUNT 8.9 10^3/ul (4.5-11.0)
[2016-10-31] MEDS: Nystatin 100,000 Units/gm Topical Pow(15 gm) TOP SCH ×2 (10:00→17:59)
[2016-10-31] MEDS: Bacitracin Ointment 30 GM TUBE TOP SCH ×2 (10:00→17:58)
[2016-10-31] MEDS: Multivitamin With Minerals Tab PO SCH (10:00)
--- NOTE | 2016-10-31 12:52 | CP.PCM.PN ---
<Lalo Cat - Last Filed: 10/31/16 12:52> Subjective - Date & Time of Evaluation Date of Evaluation: 10/31/16 Time of Evaluation: 12:50 - Subjective Subjective: Medicine progress note. Attending: Dr. Santizo Pt seen and examined at bedside. No acute distress. Pt agitated and greta out rios overnight. No fevers, chills, vomiting, diarrhea. Objective - Vital Signs/Intake and Output Vital Signs (last 24 hours): Temp Pulse Resp BP Pulse Ox 98.4 F 82 20 115/75 98 10/31/16 05:57 10/31/16 05:57 10/31/16 05:57 10/31/16 05:57 10/31/16 05:57 Intake and Output: 10/31/16 10/31/16 06:59 18:59 Intake Total 1260 Output Total 2500 Balance -1240 - Medications Medications: Current Medications Bacitracin (Bacitracin) 0 gm TOP BID [facility] Last Admin: 10/31/16 10:00 Dose: 1 applic Cephalexin Monohydrate (Keflex) 250 mg PO Q6 [facility] PRN Reason: Protocol Doxycycline Hyclate (Doryx) 100 mg PO Q12 [facility] PRN Reason: Protocol Folic Acid (Folic Acid) 1 mg PO DAILY [facility] Last Admin: 10/31/16 10:00 Dose: 1 mg Vancomycin HCl (Vancomycin 750 Mg In Ns) 750 mg in 250 mls @ 167 mls/hr IVPB Q12H [facility] PRN Reason: Protocol Last Admin: 10/31/16 03:22 Dose: 167 mls/hr Lorazepam (Ativan) 1 mg IVP Q4 PRN; Protocol PRN Reason: Seizure activity Last Admin: 10/30/16 23:18 Dose: 1 mg Lorazepam (Ativan) 1 mg PO Q4 PRN; Protocol PRN Reason: Anxiety Multivitamins/Minerals (Therapeutic-M Tab) 1 tab PO 0800 [facility] Last Admin: 10/31/16 10:00 Dose: 1 tab Nystatin (Nystop Topical Powder) 0 gm TOP BID [facility] Last Admin: 10/31/16 10:00 Dose: 1 applic Potassium Phos/Sodium Phos (Neutra-Phos) 1 pkt PO TID [facility] Thiamine HCl (Vitamin B1 Tab) 100 mg PO DAILY [facility] Last Admin: 10/31/16 10:33 Dose: 100 mg - Labs Labs: 10/31/16 09:13 10/31/16 09:13 PT 10.5 Seconds (9.9-11.8) 10/29/16 10:41 INR 0.97 (0.93-1.08) 10/29/16 10:41 APTT 27.5 Seconds (23.7-30.8) 10/29/16 10:41 - Constitutional Appears: Non-toxic, No Acute Distress - Head Exam Head Exam: absent: NORMAL INSPECTION - Eye Exam Eye Exam: EOMI - ENT Exam ENT Exam: Mucous Membranes Moist - Neck Exam Neck Exam: Full ROM, Normal Inspection - Respiratory Exam Respiratory Exam: NORMAL BREATHING PATTERN. absent: Respiratory Distress - Cardiovascular Exam Cardiovascular Exam: Tachycardia, +S1, +S2 - GI/Abdominal Exam GI & Abdominal Exam: Soft, Normal Bowel Sounds. absent: Tenderness - Extremities Exam Extremities Exam: absent: Normal Inspection Additional comments: Multiple abrasions along b/l lower extremities - Neurological Exam Neurological Exam: Altered, Awake. absent: Oriented x3 - Psychiatric Exam Psychiatric exam: Flat Affect - Skin Skin Exam: Abrasion, Rash Additional comments: Rash in groin Assessment and Plan - Assessment and Plan (Free Text) Assessment: This is a 66 yo male with past medical hx of alcoholism, gerd, gastritis presenting with alcoholic intoxication, ams, and ketones in urine 1. Alcoholic ketoacidosis -po thiamine, folic acid, MVs -will dc tele -urine drug screen positive for benzos -alc level 349 -[facility] protocol -po ativan -fall precautions -aspiration precautions -seizure precautions -will add pureed diet 2. Positive blood culture -2 positive blood cultures -ID consult. Dr. Chowdary. recs appreciated. -IV vancomycin 1 g daily>>> changed to PO doxy and keflex because unable to get iv -repeat cultures pending 3. Rash in groin -will add topical antifungal 4. GI/DVT ppx -protonix 40 daily -scds discussed with Dr. Santizo <Chris Santizo - Last Filed: 10/31/16 17:18> Objective - Vital Signs/Intake and Output Vital Signs (last 24 hours): Temp Pulse Resp BP Pulse Ox 98.4 F 82 20 115/75 98 10/31/16 05:57 10/31/16 05:57 10/31/16 05:57 10/31/16 05:57 10/31/16 05:57 Intake and Output: 10/31/16 10/31/16 06:59 18:59 Intake Total 1260 Output Total 2500 Balance -1240 - Medications Medications: Current Medications Bacitracin (Bacitracin) 0 gm TOP BID [facility] Last Admin: 10/31/16 10:00 Dose: 1 applic Cephalexin Monohydrate (Keflex) 250 mg PO Q6 [facility] PRN Reason: Protocol Doxycycline Hyclate (Doryx) 100 mg PO Q12 [facility] PRN Reason: Protocol Last Admin: 10/31/16 13:05 Dose: 100 mg Folic Acid (Folic Acid) 1 mg PO DAILY [facility] Last Admin: 10/31/16 10:00 Dose: 1 mg Vancomycin HCl (Vancomycin 750 Mg In Ns) 750 mg in 250 mls @ 167 mls/hr IVPB Q12H [facility] PRN Reason: Protocol Last Admin: 10/31/16 15:06 Dose: 167 mls/hr Lorazepam (Ativan) 1 mg IVP Q4 PRN; Protocol PRN Reason: Seizure activity Last Admin: 10/31/16 14:40 Dose: 1 mg Lorazepam (Ativan) 1 mg PO Q4 PRN; Protocol PRN Reason: Anxiety Magnesium Oxide (Mag-Ox) 400 mg PO BID [facility] Multivitamins/Minerals (Therapeutic-M Tab) 1 tab PO 0800 [facility] Last Admin: 10/31/16 10:00 Dose: 1 tab Nystatin (Nystop Topical Powder) 0 gm TOP BID [facility] Last Admin: 10/31/16 10:00 Dose: 1 applic Pantoprazole Sodium (Protonix Ec Tab) 40 mg PO 0600 [facility] Potassium Chloride (K-Dur 20 Meq Er Tab) 40 meq PO STAT STA Stop: 10/31/16 17:14 Potassium Phos/Sodium Phos (Neutra-Phos) 1 pkt PO TID [facility] Thiamine HCl (Vitamin B1 Tab) 100 mg PO DAILY [facility] Last Admin: 10/31/16 10:33 Dose: 100 mg - Labs Labs: 10/31/16 09:13 10/31/16 09:13 PT 10.5 Seconds (9.9-11.8) 10/29/16 10:41 INR 0.97 (0.93-1.08) 10/29/16 10:41 APTT 27.5 Seconds (23.7-30.8) 10/29/16 10:41 Attending/Attestation - Attestation I have personally seen and examined this patient.: Yes I have fully participated in the care of the patient.: Yes I have reviewed all pertinent clinical information, including history, physical exam and plan: Yes Notes (Text): 10/31/16 17:15 Attending note; Patient seen and examined with resident. Patient is currently alert and awake. agitated on anf off. Not in any acute distress. alcoholic ketoacidosis.Resolved. Continue multivitamin, thiamine, folic acid. hypokalemia:po potassium supplementation ordered. CT head is negative for any acute ischemic changes. Showed chronic microvascular disease. Monitored mental status closely. Patient with a history of mild cognitive dysfunction. Multiple abrasions in knees and foot. On IV vancomycin. Blood culture is positive for gram-positive cocci. follow up repeat blood culture results. poor IV access; we try to get peripheral line. child abuse worker evaluation requested for discharge planning. Monitor closely for withdrawal symptoms.
--- NOTE | 2016-10-31 16:17 | CP.PCM.PN ---
Subjective - Date & Time of Evaluation Date of Evaluation: 10/31/16 Time of Evaluation: 14:15 - Subjective Subjective: pt needs angiocath insertion. Objective - Vital Signs/Intake and Output Vital Signs (last 24 hours): Temp Pulse Resp BP Pulse Ox 98.4 F 82 20 115/75 98 10/31/16 05:57 10/31/16 05:57 10/31/16 05:57 10/31/16 05:57 10/31/16 05:57 Intake and Output: 10/31/16 10/31/16 06:59 18:59 Intake Total 1260 Output Total 2500 Balance -1240 - Medications Medications: Current Medications Bacitracin (Bacitracin) 0 gm TOP BID [facility] Last Admin: 10/31/16 10:00 Dose: 1 applic Cephalexin Monohydrate (Keflex) 250 mg PO Q6 [facility] PRN Reason: Protocol Doxycycline Hyclate (Doryx) 100 mg PO Q12 [facility] PRN Reason: Protocol Last Admin: 10/31/16 13:05 Dose: 100 mg Folic Acid (Folic Acid) 1 mg PO DAILY [facility] Last Admin: 10/31/16 10:00 Dose: 1 mg Vancomycin HCl (Vancomycin 750 Mg In Ns) 750 mg in 250 mls @ 167 mls/hr IVPB Q12H [facility] PRN Reason: Protocol Last Admin: 10/31/16 15:06 Dose: 167 mls/hr Lorazepam (Ativan) 1 mg IVP Q4 PRN; Protocol PRN Reason: Seizure activity Last Admin: 10/31/16 14:40 Dose: 1 mg Lorazepam (Ativan) 1 mg PO Q4 PRN; Protocol PRN Reason: Anxiety Multivitamins/Minerals (Therapeutic-M Tab) 1 tab PO 0800 [facility] Last Admin: 10/31/16 10:00 Dose: 1 tab Nystatin (Nystop Topical Powder) 0 gm TOP BID [facility] Last Admin: 10/31/16 10:00 Dose: 1 applic Pantoprazole Sodium (Protonix Ec Tab) 40 mg PO 0600 [facility] Potassium Phos/Sodium Phos (Neutra-Phos) 1 pkt PO TID [facility] Thiamine HCl (Vitamin B1 Tab) 100 mg PO DAILY [facility] Last Admin: 10/31/16 10:33 Dose: 100 mg - Labs Labs: 10/31/16 09:13 10/31/16 09:13 PT 10.5 Seconds (9.9-11.8) 10/29/16 10:41 INR 0.97 (0.93-1.08) 10/29/16 10:41 APTT 27.5 Seconds (23.7-30.8) 10/29/16 10:41 Assessment and Plan - Assessment and Plan (Free Text) Assessment: 20 guage angiocath inseted in rt leg area.
[2016-10-31] MEDS ORDERED: Potassium Chloride 20 mEq ER Tab PO STA (17:13)
[2016-10-31] MEDS: Potassium & Sodium Phosphate PO SCH (18:01)
[2016-10-31] MEDS: Magnesium Oxide 400 mg Tab UD PO SCH (18:01)
--- NOTE | 2016-10-31 22:50 | CARD ---
APPROVED REPORT EKG Measurement Heart [id number] <Conclusion> Sinus tachycardia Voltage criteria for left ventricular hypertrophy Abnormal ECG
[2016-11-01] MEDS: Vancomycin 750mg 750 MG/250 ML BAG IVPB SCH ×2 (00:21→14:26)
[2016-11-01] MEDS: Pantoprazole 40 mg EC Tab PO SCH (05:40)
[2016-11-01 06:53] LABS: ADD MANUAL DIFF? NO
[2016-11-01 07:05] LABS: BASO # 0.01 K/mm3 (0.0-2.0); BASO % 0.1 % (0.0-3.0); EOS # 0.1 (0.0-0.7); EOS % 0.9 % (1.5-5.0); GRAN # 6.04 (1.4-6.5); GRAN % 74.3 % (50.0-68.0); HEMATOCRIT 34.5 % (42.0-52.0); LYMPH # 1.3 (1.2-3.4); LYMPH % 16.1 % (22.0-35.0); MEAN CELL VOLUME 90.8 fL (80.0-105.0); MEAN CORPUSCULAR HEMOGLOBIN 30.5 pg (25.0-35.0); MEAN CORPUSCULAR HGB CONC 33.6 g/dl (31.0-37.0); MEAN PLATELET VOLUME 10.9 fl (7.0-11.0); MONO # 0.7 (0.1-0.6); MONO % 8.6 % (1.0-6.0); PLATELET COUNT 89 10^3/uL (120.0-450.0); RED CELL DISTRIBUTION WIDTH 14.2 % (11.5-14.5); WHITE BLOOD COUNT 8.1 10^3/ul (4.5-11.0)
[2016-11-01 07:19] LABS: ALB/GLOB RATIO 1.2 (1.1-1.8); ALKALINE PHOSPHATASE 107 U/L (38-133); ALT/SGPT 57 U/L (7-56); AST/SGOT 89 U/L (15-59); BILIRUBIN,TOTAL 1.3 mg/dL (0.2-1.3); BLOOD UREA NITROGEN 10 mg/dL (7-21); CALCIUM 9.1 mg/dL (8.4-10.5); CARBON DIOXIDE 26 mmol/L (21-33); CHLORIDE 95 mmol/L (98-107); GFR AFRICAN-AMERICAN > 60; GLUCOSE,RANDOM 88 mg/dL (70-110); MAGNESIUM 1.5 mg/dL (1.7-2.2); PHOSPHOROUS 3.1 mg/dL (2.5-4.5); POTASSIUM 3.5 mmol/L (3.6-5.0); SODIUM 131 mmol/L (132-148); TOTAL PROTEIN 7.1 g/dL (5.8-8.3)
[2016-11-01] MEDS: Multivitamin With Minerals Tab PO SCH (08:16)
[2016-11-01] MEDS ORDERED: Potassium Chloride 20 mEq ER Tab PO ONE (08:46)
[2016-11-01] MEDS ORDERED: Magnesium Sulfate 2 GM in Sodium Chloride 0.9% 100 ML IVPB ONE (08:47)
[2016-11-01] MEDS: Magnesium Oxide 400 mg Tab UD PO SCH ×2 (09:31→17:21)
[2016-11-01] MEDS: Potassium & Sodium Phosphate PO SCH ×2 (09:31→17:22)
[2016-11-01] MEDS: Nystatin 100,000 Units/gm Topical Pow(15 gm) TOP SCH ×2 (09:31→17:25)
[2016-11-01] MEDS: Bacitracin Ointment 30 GM TUBE TOP SCH ×2 (09:32→17:25)
[2016-11-01] MEDS: Enoxaparin 40 mg Syringe SC SCH (09:33)
--- NOTE | 2016-11-01 10:16 | CP.PCM.PN ---
<Lalo Cat - Last Filed: 11/01/16 10:16> Subjective - Date & Time of Evaluation Date of Evaluation: 11/01/16 Time of Evaluation: 10:15 - Subjective Subjective: Medicine progress note. Attending: Dr. Santizo Pt seen and examined at bedside. No acute distress. No events overnight. pt now has iv line in his foot. Repeat blood cultures negative. Objective - Vital Signs/Intake and Output Vital Signs (last 24 hours): Temp Pulse Resp BP Pulse Ox 99.4 F 94 H 18 125/76 98 11/01/16 05:31 11/01/16 05:31 11/01/16 05:31 11/01/16 05:31 11/01/16 05:31 - Medications Medications: Current Medications Bacitracin (Bacitracin) 0 gm TOP BID [facility] Last Admin: 11/01/16 09:32 Dose: 1 applic Doxycycline Hyclate (Doryx) 100 mg PO Q12 [facility] PRN Reason: Protocol Last Admin: 11/01/16 09:32 Dose: 100 mg Enoxaparin Sodium (Lovenox) 40 mg SC DAILY [facility] PRN Reason: Protocol Last Admin: 11/01/16 09:33 Dose: 40 mg Folic Acid (Folic Acid) 1 mg PO DAILY [facility] Last Admin: 11/01/16 09:31 Dose: 1 mg Vancomycin HCl (Vancomycin 750 Mg In Ns) 750 mg in 250 mls @ 167 mls/hr IVPB Q12H [facility] PRN Reason: Protocol Last Admin: 11/01/16 00:21 Dose: 167 mls/hr Lorazepam (Ativan) 1 mg IVP Q4 PRN; Protocol PRN Reason: Seizure activity Last Admin: 11/01/16 04:33 Dose: 1 mg Lorazepam (Ativan) 1 mg PO Q4 PRN; Protocol PRN Reason: Anxiety Last Admin: 11/01/16 07:09 Dose: 1 mg Magnesium Oxide (Mag-Ox) 400 mg PO BID [facility] Last Admin: 11/01/16 09:31 Dose: 400 mg Multivitamins/Minerals (Therapeutic-M Tab) 1 tab PO 0800 [facility] Last Admin: 11/01/16 08:16 Dose: 1 tab Nystatin (Nystop Topical Powder) 0 gm TOP BID [facility] Last Admin: 11/01/16 09:31 Dose: 1 applic Pantoprazole Sodium (Protonix Ec Tab) 40 mg PO 0600 [facility] Last Admin: 11/01/16 05:40 Dose: Not Given Potassium Phos/Sodium Phos (Neutra-Phos) 1 pkt PO TID [facility] Last Admin: 11/01/16 09:31 Dose: 1 pkt Thiamine HCl (Vitamin B1 Tab) 100 mg PO DAILY [facility] Last Admin: 11/01/16 09:37 Dose: 100 mg - Labs Labs: 11/01/16 06:00 11/01/16 06:00 PT 10.5 Seconds (9.9-11.8) 10/29/16 10:41 INR 0.97 (0.93-1.08) 10/29/16 10:41 APTT 27.5 Seconds (23.7-30.8) 10/29/16 10:41 - Constitutional Appears: Non-toxic, No Acute Distress, Cachectic - Head Exam Head Exam: absent: NORMAL INSPECTION - Eye Exam Eye Exam: EOMI - ENT Exam ENT Exam: Mucous Membranes Dry - Respiratory Exam Respiratory Exam: NORMAL BREATHING PATTERN. absent: Respiratory Distress - Cardiovascular Exam Cardiovascular Exam: +S1, +S2 - GI/Abdominal Exam GI & Abdominal Exam: Soft, Normal Bowel Sounds. absent: Tenderness - Extremities Exam Extremities Exam: absent: Full ROM, Normal Inspection - Neurological Exam Neurological Exam: Awake. absent: Oriented x3 - Psychiatric Exam Psychiatric exam: Flat Affect - Skin Skin Exam: Abrasion Assessment and Plan - Assessment and Plan (Free Text) Assessment: This is a 66 yo male with past medical hx of alcoholism, gerd, gastritis presenting with alcoholic intoxication, ams, and ketones in urine 1. Alcoholic ketoacidosis -po thiamine, folic acid, MVs -will dc tele -urine drug screen positive for benzos -alc level 349 -[facility] protocol -po ativan -fall precautions -aspiration precautions -seizure precautions -will add pureed diet 2. Positive blood culture -2 positive blood cultures -ID consult. Dr. Chowdary. recs appreciated. -repeat blood cultures negative -added doxycycline and keflex yesterday, may need to restart vanco depending on ID recs 3. Rash in groin -will add topical antifungal nystatin cream 4. GI/DVT ppx -protonix 40 daily -scds discussed with Dr. Santizo <Chris Santizo - Last Filed: 11/01/16 16:12> Objective - Vital Signs/Intake and Output Vital Signs (last 24 hours): Temp Pulse Resp BP Pulse Ox 98.5 F 91 H 16 107/77 98 11/01/16 12:00 11/01/16 12:00 11/01/16 12:00 11/01/16 12:00 11/01/16 05:31 - Medications Medications: Current Medications Bacitracin (Bacitracin) 0 gm TOP BID [facility] Last Admin: 11/01/16 09:32 Dose: 1 applic Doxycycline Hyclate (Doryx) 100 mg PO Q12 [facility] PRN Reason: Protocol Last Admin: 11/01/16 09:32 Dose: 100 mg Enoxaparin Sodium (Lovenox) 40 mg SC DAILY [facility] PRN Reason: Protocol Last Admin: 11/01/16 09:33 Dose: 40 mg Folic Acid (Folic Acid) 1 mg PO DAILY [facility] Last Admin: 11/01/16 09:31 Dose: 1 mg Vancomycin HCl (Vancomycin 750 Mg In Ns) 750 mg in 250 mls @ 167 mls/hr IVPB Q12H [facility] PRN Reason: Protocol Last Admin: 11/01/16 14:26 Dose: 167 mls/hr Lorazepam (Ativan) 1 mg IVP Q4 PRN; Protocol PRN Reason: Seizure activity Last Admin: 11/01/16 13:17 Dose: 1 mg Lorazepam (Ativan) 1 mg PO Q4 PRN; Protocol PRN Reason: Anxiety Last Admin: 11/01/16 07:09 Dose: 1 mg Magnesium Oxide (Mag-Ox) 400 mg PO BID [facility] Last Admin: 11/01/16 09:31 Dose: 400 mg Multivitamins/Minerals (Therapeutic-M Tab) 1 tab PO 0800 [facility] Last Admin: 11/01/16 08:16 Dose: 1 tab Nystatin (Nystop Topical Powder) 0 gm TOP BID [facility] Last Admin: 11/01/16 09:31 Dose: 1 applic Pantoprazole Sodium (Protonix Ec Tab) 40 mg PO 0600 [facility] Last Admin: 11/01/16 05:40 Dose: Not Given Potassium Phos/Sodium Phos (Neutra-Phos) 1 pkt PO TID [facility] Last Admin: 11/01/16 09:31 Dose: 1 pkt Thiamine HCl (Vitamin B1 Tab) 100 mg PO DAILY [facility] Last Admin: 11/01/16 09:37 Dose: 100 mg - Labs Labs: 11/01/16 06:00 11/01/16 06:00 PT 10.5 Seconds (9.9-11.8) 10/29/16 10:41 INR 0.97 (0.93-1.08) 10/29/16 10:41 APTT 27.5 Seconds (23.7-30.8) 10/29/16 10:41 Attending/Attestation - Attestation I have personally seen and examined this patient.: Yes I have fully participated in the care of the patient.: Yes I have reviewed all pertinent clinical information, including history, physical exam and plan: Yes Notes (Text): 11/01/16 16:07 Attending note; Patient seen and examined with resident. Patient is currently alert and awake. agitated on anf off. 1;1 by bed side. alcoholic abuse: Continue multivitamin, thiamine, folic acid. hypomagnesemia; IV supplementation ordered. CT head is negative for any acute ischemic changes. Showed chronic microvascular disease. Monitored mental status closely. Patient with a history of mild cognitive dysfunction. Multiple abrasions in knees and foot. Blood culture is positive coagulase-negative staph. repeat blood culture is negative. Case discussed with ID. We will discontinue IV vancomycin. spring salvage worker evaluation requested for discharge planning. Monitor closely for withdrawal symptoms.
--- NOTE | 2016-11-01 18:50 | CP.PCM.PN ---
Subjective - Date & Time of Evaluation Date of Evaluation: 11/01/16 Time of Evaluation: 09:50 - Subjective Subjective: Comfortable, not in distress, afebrile. Objective - Vital Signs/Intake and Output Vital Signs (last 24 hours): Temp Pulse Resp BP Pulse Ox 98.4 F 107 H 20 109/83 98 11/01/16 16:00 11/01/16 16:00 11/01/16 16:00 11/01/16 16:00 11/01/16 16:00 - Medications Medications: Current Medications Bacitracin (Bacitracin) 0 gm TOP BID [facility] Last Admin: 11/01/16 17:25 Dose: 1 applic Doxycycline Hyclate (Doryx) 100 mg PO Q12 [facility] PRN Reason: Protocol Last Admin: 11/01/16 09:32 Dose: 100 mg Enoxaparin Sodium (Lovenox) 40 mg SC DAILY [facility] PRN Reason: Protocol Last Admin: 11/01/16 09:33 Dose: 40 mg Folic Acid (Folic Acid) 1 mg PO DAILY [facility] Last Admin: 11/01/16 09:31 Dose: 1 mg Lorazepam (Ativan) 1 mg IVP Q4 PRN; Protocol PRN Reason: Seizure activity Last Admin: 11/01/16 13:17 Dose: 1 mg Lorazepam (Ativan) 1 mg PO Q4 PRN; Protocol PRN Reason: Anxiety Last Admin: 11/01/16 07:09 Dose: 1 mg Magnesium Oxide (Mag-Ox) 400 mg PO BID [facility] Last Admin: 11/01/16 17:21 Dose: 400 mg Multivitamins/Minerals (Therapeutic-M Tab) 1 tab PO 0800 [facility] Last Admin: 11/01/16 08:16 Dose: 1 tab Nystatin (Nystop Topical Powder) 0 gm TOP BID [facility] Last Admin: 11/01/16 17:25 Dose: 1 applic Pantoprazole Sodium (Protonix Ec Tab) 40 mg PO 0600 [facility] Last Admin: 11/01/16 05:40 Dose: Not Given Potassium Phos/Sodium Phos (Neutra-Phos) 1 pkt PO TID [facility] Last Admin: 11/01/16 17:22 Dose: 1 pkt Thiamine HCl (Vitamin B1 Tab) 100 mg PO DAILY [facility] Last Admin: 11/01/16 09:37 Dose: 100 mg - Labs Labs: 11/01/16 06:00 11/01/16 06:00 PT 10.5 Seconds (9.9-11.8) 10/29/16 10:41 INR 0.97 (0.93-1.08) 10/29/16 10:41 APTT 27.5 Seconds (23.7-30.8) 10/29/16 10:41 - Constitutional Appears: Non-toxic, No Acute Distress - Head Exam Head Exam: NORMAL INSPECTION - Neck Exam Neck Exam: absent: Meningismus - Respiratory Exam Respiratory Exam: Decreased Breath Sounds - Cardiovascular Exam Cardiovascular Exam: +S1, +S2 - GI/Abdominal Exam GI & Abdominal Exam: Soft. absent: Tenderness Assessment and Plan - Assessment and Plan (Free Text) Plan: Assessment coagulase negative staph bacteremia, probably contamination Probable alcohol withdrawal syndrome, clinically improving chronic alcoholism GERD gastritis S/P cholecystectomy S/P appendectomy Plan will d/c Vancomycin and monitor off antibiotics
[2016-11-02] MEDS: Pantoprazole 40 mg EC Tab PO SCH (06:20)
[2016-11-02 07:47] LABS: ALB/GLOB RATIO 1.1 (1.1-1.8); ALKALINE PHOSPHATASE 90 U/L (38-133); ALT/SGPT 62 U/L (7-56); AST/SGOT 81 U/L (15-59); BILIRUBIN,TOTAL 0.7 mg/dL (0.2-1.3); BLOOD UREA NITROGEN 13 mg/dL (7-21); CALCIUM 8.9 mg/dL (8.4-10.5); CARBON DIOXIDE 24 mmol/L (21-33); CHLORIDE 99 mmol/L (98-107); GFR AFRICAN-AMERICAN > 60; GLUCOSE,RANDOM 85 mg/dL (70-110); PHOSPHOROUS 4.1 mg/dL (2.5-4.5); POTASSIUM 4.1 mmol/L (3.6-5.0); SODIUM 134 mmol/L (132-148); TOTAL PROTEIN 6.3 g/dL (5.8-8.3)
[2016-11-02 08:09] LABS: ADD MANUAL DIFF? NO
[2016-11-02 08:11] LABS: BASO # 0.02 K/mm3 (0.0-2.0); BASO % 0.2 % (0.0-3.0); EOS # 0.3 (0.0-0.7); EOS % 3.3 % (1.5-5.0); GRAN # 4.87 (1.4-6.5); HEMATOCRIT 36.3 % (42.0-52.0); LYMPH # 2.6 (1.2-3.4); LYMPH % 31.6 % (22.0-35.0); MEAN CELL VOLUME 84.2 fL (80.0-105.0); MEAN CORPUSCULAR HEMOGLOBIN 27.1 pg (25.0-35.0); MEAN CORPUSCULAR HGB CONC 32.2 g/dl (31.0-37.0); MONO # 0.5 (0.1-0.6); MONO % 5.9 % (1.0-6.0); PLATELET COUNT 292 10^3/uL (120.0-450.0); RED CELL DISTRIBUTION WIDTH 15.5 % (11.5-14.5); WHITE BLOOD COUNT 8.3 10^3/ul (4.5-11.0)
[2016-11-02] MEDS: Bacitracin Ointment 30 GM TUBE TOP SCH ×2 (10:24→17:36)
[2016-11-02] MEDS: Nystatin 100,000 Units/gm Topical Pow(15 gm) TOP SCH ×2 (10:24→17:36)
[2016-11-02] MEDS: Magnesium Oxide 400 mg Tab UD PO SCH ×2 (10:34→17:35)
[2016-11-02] MEDS: Multivitamin With Minerals Tab PO SCH (10:34)
[2016-11-02] MEDS: Enoxaparin 40 mg Syringe SC SCH (10:35)
[2016-11-02] MEDS: Potassium & Sodium Phosphate PO SCH ×3 (10:35→17:35)
--- NOTE | 2016-11-02 10:42 | CP.PCM.PN ---
Subjective - Date & Time of Evaluation Date of Evaluation: 11/02/16 Time of Evaluation: 08:10 - Subjective Subjective: Patient seen and examined at bedside. He complains of generalized pain. He is a poor historian. Overnight he was reported as agitated requiring ativan and geodon. However at this time he is calm. Review of Systems - Review of Systems All systems: reviewed and no additional remarkable complaints except - Constitutional Constitutional: absent: Fever, Chills - EENT Eyes: absent: Blurred Vision Ears: absent: Dizziness - Cardiovascular Cardiovascular: absent: Chest Pain, Dyspnea - Respiratory Respiratory: absent: Cough, Dyspnea - Gastrointestinal Gastrointestinal: absent: Abdominal Pain, Nausea, Vomiting - Genitourinary Genitourinary: absent: Dysuria - Musculoskeletal Additional comments: generalized pain - Neurological Neurological: Tremor. absent: Dizziness - Psychiatric Psychiatric: absent: Depression Objective - Vital Signs/Intake and Output Vital Signs (last 24 hours): Temp Pulse Resp BP Pulse Ox 98.4 F 107 H 20 109/83 98 11/01/16 16:00 11/01/16 16:00 11/01/16 16:00 11/01/16 16:00 11/01/16 16:00 - Medications Medications: Current Medications Bacitracin (Bacitracin) 0 gm TOP BID [facility] Last Admin: 11/01/16 17:25 Dose: 1 applic Doxycycline Hyclate (Doryx) 100 mg PO Q12 [facility] PRN Reason: Protocol Last Admin: 11/01/16 21:04 Dose: 100 mg Enoxaparin Sodium (Lovenox) 40 mg SC DAILY [facility] PRN Reason: Protocol Last Admin: 11/01/16 09:33 Dose: 40 mg Folic Acid (Folic Acid) 1 mg PO DAILY [facility] Last Admin: 11/01/16 09:31 Dose: 1 mg Lorazepam (Ativan) 1 mg IVP Q4 PRN; Protocol PRN Reason: Seizure activity Last Admin: 11/01/16 13:17 Dose: 1 mg Lorazepam (Ativan) 2 mg PO Q4 PRN; Protocol PRN Reason: Anxiety Last Admin: 11/01/16 21:04 Dose: 2 mg Magnesium Oxide (Mag-Ox) 400 mg PO BID [facility] Last Admin: 11/01/16 17:21 Dose: 400 mg Multivitamins/Minerals (Therapeutic-M Tab) 1 tab PO 0800 [facility] Last Admin: 11/01/16 08:16 Dose: 1 tab Nystatin (Nystop Topical Powder) 0 gm TOP BID [facility] Last Admin: 11/01/16 17:25 Dose: 1 applic Pantoprazole Sodium (Protonix Ec Tab) 40 mg PO 0600 [facility] Last Admin: 11/02/16 06:20 Dose: 40 mg Potassium Phos/Sodium Phos (Neutra-Phos) 1 pkt PO TID [facility] Last Admin: 11/01/16 17:22 Dose: 1 pkt Thiamine HCl (Vitamin B1 Tab) 100 mg PO DAILY [facility] Last Admin: 11/01/16 09:37 Dose: 100 mg Tramadol HCl (Ultram) 50 mg PO Q8H PRN PRN Reason: Pain, moderate (4-7) Last Admin: 11/01/16 19:40 Dose: 50 mg Ziprasidone (Geodon Inj) 20 mg IM HS PRN; Protocol PRN Reason: Last Admin: 11/01/16 22:46 Dose: 20 mg - Labs Labs: 11/02/16 07:00 11/02/16 07:00 PT 10.5 Seconds (9.9-11.8) 10/29/16 10:41 INR 0.97 (0.93-1.08) 10/29/16 10:41 APTT 27.5 Seconds (23.7-30.8) 10/29/16 10:41 - Constitutional Appears: Well, No Acute Distress - Head Exam Head Exam: NORMAL INSPECTION - Eye Exam Eye Exam: EOMI - ENT Exam ENT Exam: Normal Exam - Respiratory Exam Respiratory Exam: Clear to Ausculation Bilateral. absent: Rales - Cardiovascular Exam Cardiovascular Exam: REGULAR RHYTHM, +S1, +S2 - GI/Abdominal Exam GI & Abdominal Exam: Soft, Normal Bowel Sounds. absent: Tenderness, Organomegaly - Extremities Exam Extremities Exam: Normal Inspection - Neurological Exam Neurological Exam: Alert, Awake, Oriented x3 - Psychiatric Exam Psychiatric exam: absent: Agitated Assessment and Plan - Assessment and Plan (Free Text) Plan: This is a 66 year old male with past medical history of alcohol abuse who presented with alcohol intoxication complicated with alcohol withdrawal. 1. Alcohol withdrawal - Continue with multivitamin, folic acid and thiamine. Continue with ativan prn for withdrawal symptoms. He has been on 1:1 for past few days for agitation. We can seen this afternoon if this can be discontinued. Out of bed to chair is ordered. 2. Positive blood culture - Initial blood cultures grew coag negative staph; likely contaminant. Repeat blood cultures are negative to date. Will continue to monitor off antibiotics as per ID. 3. Elevated LFTs - Likely secondary to chronic ETOH abuse. Will continue to monitor. His last hepatitis panel was negative. Continue with protonix for GI prophylaxis and SCDs for DVT prophylaxis.
--- NOTE | 2016-11-02 15:45 | CARD ---
APPROVED REPORT EKG Measurement Heart [id number] <Conclusion> Sinus rhythm with premature atrial complexes Voltage criteria for left ventricular hypertrophy Abnormal ECG
[2016-11-02 16:00] LABS: TROPONIN I < 0.01 ng/mL
[2016-11-03] MEDS: Pantoprazole 40 mg EC Tab PO SCH (06:47)
[2016-11-03] MEDS: Multivitamin With Minerals Tab PO SCH (08:41)
[2016-11-03] MEDS: Potassium & Sodium Phosphate PO SCH ×3 (09:46→17:16)
[2016-11-03] MEDS: Magnesium Oxide 400 mg Tab UD PO SCH ×2 (09:46→17:17)
[2016-11-03] MEDS: Bacitracin Ointment 30 GM TUBE TOP SCH ×2 (09:47→17:17)
[2016-11-03] MEDS: Enoxaparin 40 mg Syringe SC SCH (09:47)
[2016-11-03] MEDS: Nystatin 100,000 Units/gm Topical Pow(15 gm) TOP SCH ×2 (09:47→17:17)
[2016-11-03 10:19] LABS: ADD MANUAL DIFF? NO
[2016-11-03 10:33] LABS: BLOOD UREA NITROGEN 13 mg/dL (7-21); CALCIUM 9.1 mg/dL (8.4-10.5); CARBON DIOXIDE 29 mmol/L (21-33); CHLORIDE 95 mmol/L (98-107); GFR AFRICAN-AMERICAN > 60; GLUCOSE,RANDOM 101 mg/dL (70-110); POTASSIUM 4.2 mmol/L (3.6-5.0); SODIUM 129 mmol/L (132-148)
[2016-11-03 10:44] LABS: BASO # 0.01 K/mm3 (0.0-2.0); BASO % 0.1 % (0.0-3.0); EOS # 0.1 (0.0-0.7); EOS % 1.7 % (1.5-5.0); GRAN # 4.88 (1.4-6.5); GRAN % 62.8 % (50.0-68.0); HEMATOCRIT 32.9 % (42.0-52.0); LYMPH # 1.5 (1.2-3.4); LYMPH % 19.2 % (22.0-35.0); MEAN CELL VOLUME 92.2 fL (80.0-105.0); MEAN CORPUSCULAR HEMOGLOBIN 30.8 pg (25.0-35.0); MEAN CORPUSCULAR HGB CONC 33.4 g/dl (31.0-37.0); MEAN PLATELET VOLUME 9.9 fl (7.0-11.0); MONO # 1.3 (0.1-0.6); MONO % 16.2 % (1.0-6.0); PLATELET COUNT 187 10^3/uL (120.0-450.0); RED CELL DISTRIBUTION WIDTH 14.3 % (11.5-14.5); WHITE BLOOD COUNT 7.8 10^3/ul (4.5-11.0)
[2016-11-03 10:52] LABS: TROPONIN I < 0.01 ng/mL
--- NOTE | 2016-11-03 11:19 | CP.PCM.PN ---
Subjective - Date & Time of Evaluation Date of Evaluation: 11/03/16 Time of Evaluation: 08:10 - Subjective Subjective: Patient seen and examined at bedside. He complains of chronic chest wall pain. Denies any nausea, vomiting or abdominal pain. Per nursing staff he requires few doses of ativan last night for agitation/ anxiety and tremor. He has been off 1:1 since yesterday. He states he doesn't want to go home today and will go home tomorrow. Review of Systems - Review of Systems All systems: reviewed and no additional remarkable complaints except - Constitutional Constitutional: absent: Fever, Chills - EENT Eyes: absent: Blurred Vision Ears: absent: Dizziness - Cardiovascular Cardiovascular: As Per HPI. absent: Dyspnea - Respiratory Respiratory: absent: Cough, Dyspnea - Gastrointestinal Gastrointestinal: absent: Abdominal Pain, Nausea, Vomiting - Musculoskeletal Musculoskeletal: absent: Back Pain - Neurological Neurological: Tremor - Psychiatric Psychiatric: Anxiety Objective - Vital Signs/Intake and Output Vital Signs (last 24 hours): Temp Pulse Resp BP Pulse Ox 98 F 73 20 109/76 99 11/03/16 08:28 11/03/16 08:28 11/03/16 08:28 11/03/16 08:28 11/03/16 08:28 Intake and Output: 11/03/16 11/03/16 06:59 18:59 Intake Total 1960 Output Total 1250 Balance 710 - Medications Medications: Current Medications Bacitracin (Bacitracin) 0 gm TOP BID [facility] Last Admin: 11/03/16 09:47 Dose: 1 applic Doxycycline Hyclate (Doryx) 100 mg PO Q12 [facility] PRN Reason: Protocol Last Admin: 11/03/16 09:47 Dose: 100 mg Enoxaparin Sodium (Lovenox) 40 mg SC DAILY [facility] PRN Reason: Protocol Last Admin: 11/03/16 09:47 Dose: 40 mg Folic Acid (Folic Acid) 1 mg PO DAILY [facility] Last Admin: 11/03/16 09:46 Dose: 1 mg Lorazepam (Ativan) 1 mg PO Q4 PRN; Protocol PRN Reason: Anxiety Magnesium Oxide (Mag-Ox) 400 mg PO BID [facility] Last Admin: 11/03/16 09:46 Dose: 400 mg Multivitamins/Minerals (Therapeutic-M Tab) 1 tab PO 0800 [facility] Last Admin: 11/03/16 08:41 Dose: 1 tab Nystatin (Nystop Topical Powder) 0 gm TOP BID [facility] Last Admin: 11/03/16 09:47 Dose: 1 applic Pantoprazole Sodium (Protonix Ec Tab) 40 mg PO 0600 [facility] Last Admin: 11/03/16 06:47 Dose: 40 mg Potassium Phos/Sodium Phos (Neutra-Phos) 1 pkt PO TID [facility] Last Admin: 11/03/16 09:46 Dose: 1 pkt Thiamine HCl (Vitamin B1 Tab) 100 mg PO DAILY [facility] Last Admin: 11/03/16 09:46 Dose: 100 mg Tramadol HCl (Ultram) 50 mg PO Q8H PRN PRN Reason: Pain, moderate (4-7) Last Admin: 11/03/16 06:47 Dose: 50 mg - Labs Labs: 11/03/16 10:00 11/03/16 10:00 PT 10.5 Seconds (9.9-11.8) 10/29/16 10:41 INR 0.97 (0.93-1.08) 10/29/16 10:41 APTT 27.5 Seconds (23.7-30.8) 10/29/16 10:41 - Constitutional Appears: Chronically Ill - Head Exam Head Exam: NORMAL INSPECTION - Eye Exam Eye Exam: EOMI - ENT Exam ENT Exam: Normal Exam - Respiratory Exam Respiratory Exam: Clear to Ausculation Bilateral. absent: Rales, Wheezes - Cardiovascular Exam Cardiovascular Exam: REGULAR RHYTHM, +S1, +S2 - GI/Abdominal Exam GI & Abdominal Exam: Soft, Normal Bowel Sounds. absent: Tenderness, Organomegaly - Extremities Exam Extremities Exam: Normal Inspection - Neurological Exam Neurological Exam: Alert, Awake, Oriented x3 - Psychiatric Exam Psychiatric exam: Normal Affect, Normal Mood Assessment and Plan - Assessment and Plan (Free Text) Plan: This is a 66 year old male with past medical history of alcohol abuse who presented with alcohol intoxication complicated with alcohol withdrawal. 1. Alcohol withdrawal - Continue with multivitamin, folic acid and thiamine. Continue with ativan prn for withdrawal symptoms. Will begin to taper his ativan and monitor. He has been off 1:1 since yesterday. Again out of bed to chair is ordered for today. bench worker apprentice evaluation was requested for d/c planning. He was counselled on alcohol abstinence on multiple occasions, unfortunately he fails to comply. 2. Positive blood culture - Initial blood cultures grew coag negative staph; likely contaminant. Repeat blood cultures are negative to date. Will continue to monitor off antibiotics as per ID. 3. Elevated LFTs - Likely secondary to chronic ETOH abuse. Will continue to monitor. His last hepatitis panel was negative. 4. Atypical chest pain - EKG did not show any acute changes and serial cardiac enzymes have been negative. Continue with protonix for GI prophylaxis and SCDs for DVT prophylaxis. bench worker apprentice evaluation was requested for d/c planning.
--- NOTE | 2016-11-03 23:47 | CP.PCM.PN ---
Subjective - Date & Time of Evaluation Date of Evaluation: 11/03/16 Time of Evaluation: 23:46 - Subjective Subjective: # 24 angiocath was inserted in right forearm. Dx: Poor venous access. Objective - Vital Signs/Intake and Output Vital Signs (last 24 hours): Temp Pulse Resp BP Pulse Ox 97.4 F L 98 H 20 109/69 100 11/03/16 16:00 11/03/16 16:00 11/03/16 16:00 11/03/16 16:00 11/03/16 16:00 Intake and Output: 11/03/16 11/04/16 18:59 06:59 Intake Total 4000 Output Total 2400 Balance 1600 - Medications Medications: Current Medications Bacitracin (Bacitracin) 0 gm TOP BID [facility] Last Admin: 11/03/16 17:17 Dose: 1 applic Doxycycline Hyclate (Doryx) 100 mg PO Q12 [facility] PRN Reason: Protocol Last Admin: 11/03/16 21:14 Dose: 100 mg Enoxaparin Sodium (Lovenox) 40 mg SC DAILY [facility] PRN Reason: Protocol Last Admin: 11/03/16 09:47 Dose: 40 mg Folic Acid (Folic Acid) 1 mg PO DAILY [facility] Last Admin: 11/03/16 09:46 Dose: 1 mg Lorazepam (Ativan) 1 mg PO Q4 PRN; Protocol PRN Reason: Anxiety Last Admin: 11/03/16 21:14 Dose: 1 mg Magnesium Oxide (Mag-Ox) 400 mg PO BID [facility] Last Admin: 11/03/16 17:17 Dose: 400 mg Multivitamins/Minerals (Therapeutic-M Tab) 1 tab PO 0800 [facility] Last Admin: 11/03/16 08:41 Dose: 1 tab Nystatin (Nystop Topical Powder) 0 gm TOP BID [facility] Last Admin: 11/03/16 17:17 Dose: 1 applic Pantoprazole Sodium (Protonix Ec Tab) 40 mg PO 0600 [facility] Last Admin: 11/03/16 06:47 Dose: 40 mg Potassium Phos/Sodium Phos (Neutra-Phos) 1 pkt PO TID [facility] Last Admin: 11/03/16 17:16 Dose: 1 pkt Thiamine HCl (Vitamin B1 Tab) 100 mg PO DAILY [facility] Last Admin: 11/03/16 09:46 Dose: 100 mg Tramadol HCl (Ultram) 50 mg PO Q8H PRN PRN Reason: Pain, moderate (4-7) Last Admin: 11/03/16 22:27 Dose: 50 mg - Labs Labs: 11/03/16 10:00 11/03/16 10:00 PT 10.5 Seconds (9.9-11.8) 10/29/16 10:41 INR 0.97 (0.93-1.08) 10/29/16 10:41 APTT 27.5 Seconds (23.7-30.8) 10/29/16 10:41
[2016-11-04] MEDS: Pantoprazole 40 mg EC Tab PO SCH (05:45)
[2016-11-04 08:07] LABS: ADD MANUAL DIFF? NO
[2016-11-04 08:10] LABS: EOS # 0.1 (0.0-0.7); EOS % 1.8 % (1.5-5.0); GRAN # 4.93 (1.4-6.5); GRAN % 62.4 % (50.0-68.0); HEMATOCRIT 32.5 % (42.0-52.0); LYMPH # 1.3 (1.2-3.4); LYMPH % 16.3 % (22.0-35.0); MEAN CELL VOLUME 91.5 fL (80.0-105.0); MEAN CORPUSCULAR HEMOGLOBIN 30.7 pg (25.0-35.0); MEAN CORPUSCULAR HGB CONC 33.5 g/dl (31.0-37.0); MEAN PLATELET VOLUME 9.7 fl (7.0-11.0); MONO # 1.5 (0.1-0.6); MONO % 19.5 % (1.0-6.0); PLATELET COUNT 251 10^3/uL (120.0-450.0); RED CELL DISTRIBUTION WIDTH 14.3 % (11.5-14.5); WHITE BLOOD COUNT 7.9 10^3/ul (4.5-11.0)
[2016-11-04 08:40] LABS: ALB/GLOB RATIO 1.1 (1.1-1.8); ALKALINE PHOSPHATASE 92 U/L (38-133); ALT/SGPT 52 U/L (7-56); AST/SGOT 52 U/L (15-59); BILIRUBIN,TOTAL 0.5 mg/dL (0.2-1.3); BLOOD UREA NITROGEN 10 mg/dL (7-21); CALCIUM 9.1 mg/dL (8.4-10.5); CARBON DIOXIDE 28 mmol/L (21-33); CHLORIDE 96 mmol/L (98-107); GFR AFRICAN-AMERICAN > 60; GLUCOSE,RANDOM 86 mg/dL (70-110); PHOSPHOROUS 3.7 mg/dL (2.5-4.5); POTASSIUM 3.8 mmol/L (3.6-5.0); SODIUM 130 mmol/L (132-148); TOTAL PROTEIN 6.8 g/dL (5.8-8.3)
[2016-11-04] MEDS: Potassium & Sodium Phosphate PO SCH ×3 (10:17→17:44)
[2016-11-04] MEDS: Magnesium Oxide 400 mg Tab UD PO SCH ×2 (10:18→17:47)
[2016-11-04] MEDS: Enoxaparin 40 mg Syringe SC SCH (10:18)
[2016-11-04] MEDS: Nystatin 100,000 Units/gm Topical Pow(15 gm) TOP SCH (10:19)
[2016-11-04] MEDS: Bacitracin Ointment 30 GM TUBE TOP SCH (12:43)
[2016-11-04] MEDS: Multivitamin With Minerals Tab PO SCH (12:43)
--- NOTE | 2016-11-04 12:53 | CP.PCM.PN ---
<Lalo Cat - Last Filed: 11/04/16 12:58> Subjective - Date & Time of Evaluation Date of Evaluation: 11/04/16 Time of Evaluation: 12:50 - Subjective Subjective: Med progress note. Attending: Dr. Hernandez Pt seen and examined at bedside. Pt is very anxious and shaking a little bit. No fevers, chills, vomiting, diarrhea. Psych consult pending. Objective - Vital Signs/Intake and Output Vital Signs (last 24 hours): Temp Pulse Resp BP Pulse Ox 97.9 F 92 H 20 128/86 95 11/04/16 08:46 11/04/16 08:46 11/04/16 08:46 11/04/16 08:46 11/04/16 08:46 Intake and Output: 11/04/16 11/04/16 06:59 18:59 Intake Total 5500 Output Total 3300 Balance 2200 - Medications Medications: Current Medications Bacitracin (Bacitracin) 0 gm TOP BID [facility] Last Admin: 11/04/16 12:43 Dose: 1 applic Doxycycline Hyclate (Doryx) 100 mg PO Q12 [facility] PRN Reason: Protocol Last Admin: 11/04/16 10:18 Dose: 100 mg Enoxaparin Sodium (Lovenox) 40 mg SC DAILY [facility] PRN Reason: Protocol Last Admin: 11/04/16 10:18 Dose: 40 mg Folic Acid (Folic Acid) 1 mg PO DAILY [facility] Last Admin: 11/04/16 10:18 Dose: 1 mg Lorazepam (Ativan) 1 mg IVP Q6H PRN; Protocol PRN Reason: Anxiety Last Admin: 11/04/16 10:39 Dose: 1 mg Magnesium Oxide (Mag-Ox) 400 mg PO BID [facility] Last Admin: 11/04/16 10:18 Dose: 400 mg Multivitamins/Minerals (Therapeutic-M Tab) 1 tab PO 0800 [facility] Last Admin: 11/04/16 12:43 Dose: Not Given Nystatin (Nystop Topical Powder) 0 gm TOP BID [facility] Last Admin: 11/04/16 10:19 Dose: 1 applic Pantoprazole Sodium (Protonix Ec Tab) 40 mg PO 0600 [facility] Last Admin: 11/04/16 05:45 Dose: 40 mg Potassium Phos/Sodium Phos (Neutra-Phos) 1 pkt PO TID [facility] Last Admin: 11/04/16 10:17 Dose: 1 pkt Thiamine HCl (Vitamin B1 Tab) 100 mg PO DAILY [facility] Last Admin: 11/04/16 10:18 Dose: 100 mg Tramadol HCl (Ultram) 50 mg PO Q8H PRN PRN Reason: Pain, moderate (4-7) Last Admin: 11/04/16 06:31 Dose: 50 mg - Labs Labs: 11/04/16 07:45 11/04/16 07:45 PT 10.5 Seconds (9.9-11.8) 10/29/16 10:41 INR 0.97 (0.93-1.08) 10/29/16 10:41 APTT 27.5 Seconds (23.7-30.8) 10/29/16 10:41 - Constitutional Appears: Non-toxic, No Acute Distress - Head Exam Head Exam: ATRAUMATIC, NORMAL INSPECTION, NORMOCEPHALIC - Eye Exam Eye Exam: EOMI - ENT Exam ENT Exam: Mucous Membranes Moist - Neck Exam Neck Exam: Full ROM, Normal Inspection - Respiratory Exam Respiratory Exam: NORMAL BREATHING PATTERN. absent: Respiratory Distress - Cardiovascular Exam Cardiovascular Exam: +S1, +S2 - GI/Abdominal Exam GI & Abdominal Exam: Soft, Normal Bowel Sounds. absent: Tenderness - Back Exam Back Exam: NORMAL INSPECTION - Neurological Exam Neurological Exam: Alert, Awake, Oriented x3 - Psychiatric Exam Psychiatric exam: Anxious, Flat Affect - Skin Skin Exam: Dry, Intact, Normal Color, Warm Assessment and Plan - Assessment and Plan (Free Text) Assessment: This is a 66 yo male with past medical hx of alcoholism, gerd, gastritis presenting with alcoholic intoxication, ams, and ketones in urine 1. Alcoholic ketoacidosis -po thiamine, folic acid, MVs -will dc tele -urine drug screen positive for benzos -alc level 349 -[facility] protocol -po ativan 1mg q 4 prn -fall precautions -aspiration precautions -seizure precautions -pt still anxious with tremors -psych consult placed. recs appreciated. 2. Positive blood culture -2 positive blood cultures -ID consult. Dr. Chowdary. recs appreciated. -repeat blood cultures negative -continue doxy 100 q 12 3. Rash in groin -will add topical antifungal nystatin cream 4. Elevated LFTs -continue to monitor -trending down 5. GI/DVT ppx -protonix 40 daily -scds dw Dr. Hernandez <Brenda Hernandez - Last Filed: 11/04/16 17:25> Objective - Vital Signs/Intake and Output Vital Signs (last 24 hours): Temp Pulse Resp BP Pulse Ox 97.9 F 108 H 20 134/93 H 98 11/04/16 16:00 11/04/16 16:00 11/04/16 16:00 11/04/16 16:00 11/04/16 16:00 Intake and Output: 11/04/16 11/04/16 06:59 18:59 Intake Total 5500 960 Output Total 3300 575 Balance 2200 385 - Medications Medications: Current Medications Bacitracin (Bacitracin) 0 gm TOP BID [facility] Last Admin: 11/04/16 12:43 Dose: 1 applic Doxycycline Hyclate (Doryx) 100 mg PO Q12 [facility] PRN Reason: Protocol Last Admin: 11/04/16 10:18 Dose: 100 mg Enoxaparin Sodium (Lovenox) 40 mg SC DAILY [facility] PRN Reason: Protocol Last Admin: 11/04/16 10:18 Dose: 40 mg Folic Acid (Folic Acid) 1 mg PO DAILY [facility] Last Admin: 11/04/16 10:18 Dose: 1 mg Lorazepam (Ativan) 1 mg IVP Q6H PRN; Protocol PRN Reason: Anxiety Last Admin: 11/04/16 10:39 Dose: 1 mg Magnesium Oxide (Mag-Ox) 400 mg PO BID [facility] Last Admin: 11/04/16 10:18 Dose: 400 mg Mirtazapine (Remeron) 30 mg PO HS [facility] Multivitamins/Minerals (Therapeutic-M Tab) 1 tab PO 0800 [facility] Last Admin: 11/04/16 12:43 Dose: Not Given Nystatin (Nystop Topical Powder) 0 gm TOP BID [facility] Last Admin: 11/04/16 10:19 Dose: 1 applic Pantoprazole Sodium (Protonix Ec Tab) 40 mg PO 0600 [facility] Last Admin: 11/04/16 05:45 Dose: 40 mg Potassium Phos/Sodium Phos (Neutra-Phos) 1 pkt PO TID [facility] Last Admin: 11/04/16 10:17 Dose: 1 pkt Thiamine HCl (Vitamin B1 Tab) 100 mg PO DAILY [facility] Last Admin: 11/04/16 10:18 Dose: 100 mg Tramadol HCl (Ultram) 50 mg PO Q8H PRN PRN Reason: Pain, moderate (4-7) Last Admin: 11/04/16 06:31 Dose: 50 mg Ziprasidone (Geodon Inj) 20 mg IM Q8 PRN; Protocol PRN Reason: Agitation Last Admin: 11/04/16 15:57 Dose: 20 mg - Labs Labs: 11/04/16 07:45 11/04/16 07:45 PT 10.5 Seconds (9.9-11.8) 10/29/16 10:41 INR 0.97 (0.93-1.08) 10/29/16 10:41 APTT 27.5 Seconds (23.7-30.8) 10/29/16 10:41 Attending/Attestation - Attestation I have personally seen and examined this patient.: Yes I have fully participated in the care of the patient.: Yes I have reviewed all pertinent clinical information, including history, physical exam and plan: Yes Notes (Text): 11/04/16 17:20 66 year old male with past medical history of chronic ETOH abuse who presented with alcohol intoxication complicated with alcohol withdrawal. He is on multivitamin, folic acid and thiamine. He was on tapering ativan. Over past 24 hours he has been increasingly anxious. I'm not sure if this is panic attack or seeking secondary gain to stay in hospital as he had been doing well the prior days. Will switch po to iv ativan and request psychiatry evaluation. Will need to discuss with addiction social worker as well. He continues to complain of chronic chest wall pain. He is on tramadol. Serial cardiac enzymes were negative. His LFTs have improved. Likely were elevated secondary to chronic ETOH abuse. His initial blood cultures grew coag negative staph; likely contaminant. Repeat blood cultures are negative to date. Will continue to monitor off antibiotics as per ID. Brenda Hernandez MD Hospitalist.
[2016-11-05] MEDS: Pantoprazole 40 mg EC Tab PO SCH (06:23)
[2016-11-05 07:34] LABS: ADD MANUAL DIFF? NO
[2016-11-05 07:44] LABS: BASO # 0.01 K/mm3 (0.0-2.0); BASO % 0.2 % (0.0-3.0); EOS # 0.1 (0.0-0.7); EOS % 1.8 % (1.5-5.0); GRAN % 49.8 % (50.0-68.0); HEMATOCRIT 33.3 % (42.0-52.0); LYMPH # 1.4 (1.2-3.4); LYMPH % 23.2 % (22.0-35.0); MEAN CORPUSCULAR HEMOGLOBIN 29.9 pg (25.0-35.0); MEAN CORPUSCULAR HGB CONC 32.1 g/dl (31.0-37.0); MEAN PLATELET VOLUME 9.2 fl (7.0-11.0); MONO # 1.5 (0.1-0.6); PLATELET COUNT 316 10^3/uL (120.0-450.0); RED CELL DISTRIBUTION WIDTH 14.7 % (11.5-14.5)
[2016-11-05 07:47] LABS: ALB/GLOB RATIO 1.1 (1.1-1.8); ALKALINE PHOSPHATASE 92 U/L (38-133); ALT/SGPT 56 U/L (7-56); AST/SGOT 66 U/L (15-59); BILIRUBIN,TOTAL 0.4 mg/dL (0.2-1.3); BLOOD UREA NITROGEN 11 mg/dL (7-21); CALCIUM 9.1 mg/dL (8.4-10.5); CARBON DIOXIDE 31 mmol/L (21-33); CHLORIDE 98 mmol/L (98-107); GFR AFRICAN-AMERICAN > 60; GLUCOSE,RANDOM 78 mg/dL (70-110); MAGNESIUM 2.3 mg/dL (1.7-2.2); PHOSPHOROUS 3.7 mg/dL (2.5-4.5); POTASSIUM 3.7 mmol/L (3.6-5.0); SODIUM 133 mmol/L (132-148); TOTAL PROTEIN 7.2 g/dL (5.8-8.3)
[2016-11-05] MEDS: Magnesium Oxide 400 mg Tab UD PO SCH ×2 (09:00→18:33)
[2016-11-05] MEDS: Enoxaparin 40 mg Syringe SC SCH (09:01)
[2016-11-05] MEDS: Potassium & Sodium Phosphate PO SCH ×3 (09:02→18:33)
[2016-11-05] MEDS: Multivitamin With Minerals Tab PO SCH (09:02)
--- NOTE | 2016-11-05 11:55 | CP.PCM.PN ---
<Lalo Cat - Last Filed: 11/05/16 11:55> Subjective - Date & Time of Evaluation Date of Evaluation: 11/05/16 Time of Evaluation: 11:55 - Subjective Subjective: Med progress note. Attending: Dr. Hernandez Pt seen and examined at bedside. Pt doing much better. Pt less anxious and sitting comfortably in chair. No fevers, chills, vomiting, diarrhea. Objective - Vital Signs/Intake and Output Vital Signs (last 24 hours): Temp Pulse Resp BP Pulse Ox 98.6 F 98 H 20 134/88 98 11/05/16 07:30 11/05/16 07:30 11/05/16 07:30 11/05/16 07:30 11/05/16 07:30 Intake and Output: 11/05/16 11/05/16 06:59 18:59 Intake Total 2160 Balance 2160 - Medications Medications: Current Medications Bacitracin (Bacitracin) 0 gm TOP BID [facility] Last Admin: 11/04/16 12:43 Dose: 1 applic Doxycycline Hyclate (Doryx) 100 mg PO Q12 [facility] PRN Reason: Protocol Last Admin: 11/05/16 09:00 Dose: 100 mg Enoxaparin Sodium (Lovenox) 40 mg SC DAILY [facility] PRN Reason: Protocol Last Admin: 11/05/16 09:01 Dose: 40 mg Folic Acid (Folic Acid) 1 mg PO DAILY [facility] Last Admin: 11/05/16 09:03 Dose: 1 mg Lorazepam (Ativan) 1 mg PO Q6H PRN; Protocol PRN Reason: Anxiety Last Admin: 11/05/16 09:01 Dose: 1 mg Magnesium Oxide (Mag-Ox) 400 mg PO BID [facility] Last Admin: 11/05/16 09:00 Dose: 400 mg Mirtazapine (Remeron) 30 mg PO HS [facility] Last Admin: 11/04/16 21:18 Dose: 30 mg Multivitamins/Minerals (Therapeutic-M Tab) 1 tab PO 0800 [facility] Last Admin: 11/05/16 09:02 Dose: 1 tab Nystatin (Nystop Topical Powder) 0 gm TOP BID [facility] Last Admin: 11/04/16 10:19 Dose: 1 applic Pantoprazole Sodium (Protonix Ec Tab) 40 mg PO 0600 [facility] Last Admin: 11/05/16 06:23 Dose: 40 mg Potassium Phos/Sodium Phos (Neutra-Phos) 1 pkt PO TID [facility] Last Admin: 11/05/16 09:02 Dose: 1 pkt Thiamine HCl (Vitamin B1 Tab) 100 mg PO DAILY [facility] Last Admin: 11/05/16 09:02 Dose: 100 mg Tramadol HCl (Ultram) 50 mg PO Q8H PRN PRN Reason: Pain, moderate (4-7) Last Admin: 11/05/16 09:02 Dose: 50 mg Ziprasidone (Geodon Inj) 20 mg IM Q8 PRN; Protocol PRN Reason: Agitation Last Admin: 11/05/16 00:56 Dose: 20 mg - Labs Labs: 11/05/16 07:00 11/05/16 07:00 PT 10.5 Seconds (9.9-11.8) 10/29/16 10:41 INR 0.97 (0.93-1.08) 10/29/16 10:41 APTT 27.5 Seconds (23.7-30.8) 10/29/16 10:41 - Constitutional Appears: Non-toxic, No Acute Distress, Cachectic, Chronically Ill - Head Exam Head Exam: ATRAUMATIC, NORMAL INSPECTION, NORMOCEPHALIC - Eye Exam Eye Exam: EOMI - ENT Exam ENT Exam: Mucous Membranes Moist - Respiratory Exam Respiratory Exam: NORMAL BREATHING PATTERN. absent: Respiratory Distress - Cardiovascular Exam Cardiovascular Exam: +S1, +S2 - GI/Abdominal Exam GI & Abdominal Exam: Soft, Normal Bowel Sounds. absent: Tenderness - Extremities Exam Extremities Exam: Full ROM, Normal Inspection - Neurological Exam Neurological Exam: Alert, Awake - Psychiatric Exam Psychiatric exam: Flat Affect - Skin Skin Exam: Dry, Intact, Normal Color, Warm Assessment and Plan - Assessment and Plan (Free Text) Assessment: This is a 66 yo male with past medical hx of alcoholism, gerd, gastritis presenting with alcoholic intoxication, ams, and ketones in urine 1. Alcoholic ketoacidosis -po thiamine, folic acid, MVs -will dc tele -urine drug screen positive for benzos -alc level 349 -[facility] protocol -po ativan 1mg q 6 prn -fall precautions -aspiration precautions -seizure precautions -continue mirtazapine 30 mg po hs -continue ziprasidone 20 IM q 8 prn -psych consult placed. recs appreciated. 2. Positive blood culture -2 positive blood cultures -ID consult. Dr. Chowdary. recs appreciated. -repeat blood cultures negative -continue doxy 100 q 12 3. Rash in groin -will add topical antifungal nystatin cream 4. Elevated LFTs -continue to monitor -trending down 5. GI/DVT ppx -protonix 40 daily -scds -repleting phos with neutra phos dw Dr. Hernandez <Brenda Hernandez - Last Filed: 11/05/16 17:30> Objective - Vital Signs/Intake and Output Vital Signs (last 24 hours): Temp Pulse Resp BP Pulse Ox 98.6 F 98 H 20 134/88 98 11/05/16 07:30 11/05/16 07:30 11/05/16 07:30 11/05/16 07:30 11/05/16 07:30 Intake and Output: 11/05/16 11/05/16 06:59 18:59 Intake Total 2160 Balance 2160 - Medications Medications: Current Medications Bacitracin (Bacitracin) 0 gm TOP BID [facility] Last Admin: 11/05/16 13:08 Dose: Not Given Doxycycline Hyclate (Doryx) 100 mg PO Q12 [facility] PRN Reason: Protocol Last Admin: 11/05/16 09:00 Dose: 100 mg Enoxaparin Sodium (Lovenox) 40 mg SC DAILY [facility] PRN Reason: Protocol Last Admin: 11/05/16 09:01 Dose: 40 mg Folic Acid (Folic Acid) 1 mg PO DAILY [facility] Last Admin: 11/05/16 09:03 Dose: 1 mg Lorazepam (Ativan) 1.5 mg PO Q6H PRN; Protocol PRN Reason: Anxiety Last Admin: 11/05/16 16:41 Dose: 1.5 mg Magnesium Oxide (Mag-Ox) 400 mg PO BID [facility] Last Admin: 11/05/16 09:00 Dose: 400 mg Mirtazapine (Remeron) 30 mg PO HS [facility] Last Admin: 11/04/16 21:18 Dose: 30 mg Multivitamins/Minerals (Therapeutic-M Tab) 1 tab PO 0800 [facility] Last Admin: 11/05/16 09:02 Dose: 1 tab Nystatin (Nystop Topical Powder) 0 gm TOP BID [facility] Last Admin: 11/05/16 13:08 Dose: Not Given Pantoprazole Sodium (Protonix Ec Tab) 40 mg PO 0600 [facility] Last Admin: 11/05/16 06:23 Dose: 40 mg Potassium Phos/Sodium Phos (Neutra-Phos) 1 pkt PO TID [facility] Last Admin: 11/05/16 09:02 Dose: 1 pkt Thiamine HCl (Vitamin B1 Tab) 100 mg PO DAILY [facility] Last Admin: 11/05/16 09:02 Dose: 100 mg Tramadol HCl (Ultram) 50 mg PO Q8H PRN PRN Reason: Pain, moderate (4-7) Last Admin: 11/05/16 16:40 Dose: 50 mg Ziprasidone (Geodon Inj) 20 mg IM Q8 PRN; Protocol PRN Reason: Agitation Last Admin: 11/05/16 13:25 Dose: 20 mg - Labs Labs: 11/05/16 07:00 11/05/16 07:00 PT 10.5 Seconds (9.9-11.8) 10/29/16 10:41 INR 0.97 (0.93-1.08) 10/29/16 10:41 APTT 27.5 Seconds (23.7-30.8) 10/29/16 10:41 Attending/Attestation - Attestation I have personally seen and examined this patient.: Yes I have fully participated in the care of the patient.: Yes I have reviewed all pertinent clinical information, including history, physical exam and plan: Yes Notes (Text): 11/05/16 17:27 66 year old male with past medical history of chronic ETOH abuse who presented with alcohol intoxication complicated with alcohol withdrawal. He is on multivitamin, folic acid and thiamine. He is on ativan prn. He has been increasingly anxious for the past few days, rule out anxiety disorder vs seeking secondary gain to stay in hospital. Psychiatry evaluation was requested. Will follow up with her recommendations. Today his anxiety and tremor seem to be improved. He is out of bed to chair. Chest wall pain also has improved. He is on tramadol. Serial cardiac enzymes were negative. His LFTs have improved. Likely were elevated secondary to chronic ETOH abuse. His initial blood cultures grew coag negative staph; likely contaminant. Repeat blood cultures are negative to date. Brenda Hernandez MD Hospitalist.
[2016-11-05] MEDS: Bacitracin Ointment 30 GM TUBE TOP SCH ×2 (13:08→18:27)
[2016-11-05] MEDS: Nystatin 100,000 Units/gm Topical Pow(15 gm) TOP SCH ×2 (13:08→18:28)
--- NOTE | 2016-11-05 16:21 | CON ---
DATE: 11/05/2016 Shortly, the patient is a 66-year-old [place] descent male. The patient has long history of alcohol u se disorder. The patient also has history of being admitted to the psychiatric inpatient unit. The patient has chronic noncompliance with medications and followup appointments. The patient was admitted to the medical floor for evaluation of altered mental status. Alcohol level at the time of admission was 349. Neighbors called police because of fecal smell was coming from th e patient's apartment. The patient was found to be in altered mental status and covered in fecal mat ter. The patient was admitted on the medical side on 10/29. Psych consult was called yesterday on 0 11/04. The patient was seen and examined today. The patient presented better to compare with the previous a dmissions to the psychiatric inpatient unit. The patient was alert and oriented, seems to gain a lit tle weight. The patient was calm. The patient denied being depressed. Denied thoughts of killing h imself or others. The patient reported to feel anxious, most likely due to alcohol withdrawal sympto ms. The patient denied hearing voices, denied seeing things, denied paranoid ideations. The patient does not present to be psychotic. The patient has good appetite, but has insomnia. That is why thi s service writer advisor initiated Remeron yesterday. The patient ate 100% of his meal. There are no behavioral iss ues. PAST PSYCHIATRIC HISTORY: The patient was admitted on the psychiatric inpatient unit in 2014 most re cently, and the patient was not followed up by psychiatrist, and did not go to inpatient rehab and di d not go to [facility]. SOCIAL HISTORY: The patient has stable home. The patient lives with his mother, as well as the nasreen ent has a sister who used to be very involved in the patient's care. VITAL SIGNS: Stable. Temperature 98.6. Pulse is 98, blood pressure 134/88, respirations 20. Oxyge n saturation is 98. MEDICATIONS: Reviewed. This service writer advisor initiated Librium as needed 25 mg 3 times a day for alcohol with drawal symptoms. The patient is on bacitracin, doxycycline, folic acid, Ativan as needed. The patie nt is on magnesium oxide, Remeron 30 mg at the nighttime, multivitamins, thiamine, Ultram, and Geodon as needed for agitation. MENTAL STATUS EXAMINATION: The patient appears to be alert and oriented, pleasant, appears to be bet ter to compare with the previous admissions to the psychiatric inpatient unit. The patient seems to have gained some weight. Intermittent eye contact. Speech was underproductive. Mood described "I a m fine." Affect was constricted. Thought process seems to be goal-directed. Thought content: The patient denied visual, auditory, or tactile hallucinations. Denied paranoid ideation. The patient d enied thoughts of killing himself or others, denied intent or plan. Insight and judgment in regards of his alcohol addiction is very poor, but at the same time ____ the patient does not feel good. He comes to the hospital. Impulses are well-controlled. There is no agitation, no aggression. No beha vioral incident. The patient has good appetite, eating 100% of his meal. IMPRESSION: Alcohol use disorder, rule out substance-induced mood disorder, rule out mood disorder d ue to general medical condition. The patient has multiple medical issues. Please see medical team n bob for more detailed information. PLAN: Continue current management. Continue multivitamins, Tylenol, and folic acid. For insomnia, Remeron was started. The patient is on Ativan as needed for anxiety and alcohol withdrawal symptoms. Meanwhile, the patient needs to be seen by physical therapy. This service writer advisor will sign off. The patie nt is not agitated, not aggressive, not psychotic. The patient needs to be seen by a web content & social media manager soo n order to explore if the patient wants to go to inpatient rehab. Family involvement. Should you jaramillo ve any questions, give me a call back, but the patient is deemed not to be in danger to self or other s, but ____ is very high for this patient. Emmie Cardona MD cc: [id number] TT: 11/05/2016 15:20:21 Confirmation # [id number] Dictation # [id number]
[2016-11-06] MEDS: Pantoprazole 40 mg EC Tab PO SCH (05:11)
[2016-11-06 07:35] LABS: ADD MANUAL DIFF? NO
[2016-11-06 07:39] LABS: BASO # 0.02 K/mm3 (0.0-2.0); BASO % 0.3 % (0.0-3.0); EOS # 0.1 (0.0-0.7); EOS % 1.1 % (1.5-5.0); GRAN # 3.49 (1.4-6.5); GRAN % 53.2 % (50.0-68.0); HEMATOCRIT 32.2 % (42.0-52.0); LYMPH % 15.7 % (22.0-35.0); MEAN CELL VOLUME 93.3 fL (80.0-105.0); MEAN CORPUSCULAR HEMOGLOBIN 29.9 pg (25.0-35.0); MEAN PLATELET VOLUME 9.1 fl (7.0-11.0); MONO % 29.7 % (1.0-6.0); PLATELET COUNT 397 10^3/uL (120.0-450.0); RED CELL DISTRIBUTION WIDTH 14.6 % (11.5-14.5); WHITE BLOOD COUNT 6.6 10^3/ul (4.5-11.0)
[2016-11-06 08:25] LABS: ALB/GLOB RATIO 1.1 (1.1-1.8); ALKALINE PHOSPHATASE 86 U/L (38-133); ALT/SGPT 46 U/L (7-56); AST/SGOT 53 U/L (15-59); BILIRUBIN,TOTAL 0.3 mg/dL (0.2-1.3); BLOOD UREA NITROGEN 15 mg/dL (7-21); CALCIUM 9.1 mg/dL (8.4-10.5); CARBON DIOXIDE 29 mmol/L (21-33); CHLORIDE 101 mmol/L (95-110); GFR AFRICAN-AMERICAN > 60; GLUCOSE,RANDOM 86 mg/dL (70-110); MAGNESIUM 2.1 mg/dL (1.7-2.2); PHOSPHOROUS 4.4 mg/dL (2.5-4.5); POTASSIUM 3.8 mmol/L (3.6-5.0); SODIUM 136 mmol/L (132-148); TOTAL PROTEIN 6.6 g/dL (5.8-8.3)
[2016-11-06] MEDS: Potassium & Sodium Phosphate PO SCH ×3 (09:38→19:25)
[2016-11-06] MEDS: Magnesium Oxide 400 mg Tab UD PO SCH ×2 (09:42→17:03)
[2016-11-06] MEDS: Enoxaparin 40 mg Syringe SC SCH (09:42)
[2016-11-06] MEDS: Multivitamin With Minerals Tab PO SCH (09:43)
--- NOTE | 2016-11-06 10:54 | CP.PCM.PN ---
<Lalo Cat - Last Filed: 11/06/16 10:54> Subjective - Date & Time of Evaluation Date of Evaluation: 11/06/16 Time of Evaluation: 10:50 - Subjective Subjective: Med progress note. Attending: Dr. Hernandez Pt seen/examined at bedside. No acute distress. Pt feeling better, less shaking and tremor. Psych has signed off. No fevers, chills, vomiting, diarrhea. Objective - Vital Signs/Intake and Output Vital Signs (last 24 hours): Temp Pulse Resp BP Pulse Ox 98.2 F 103 H 20 131/86 97 11/06/16 07:30 11/06/16 07:30 11/06/16 07:30 11/06/16 07:30 11/06/16 07:30 Intake and Output: 11/06/16 11/06/16 06:59 18:59 Intake Total 2100 Output Total 400 Balance 1700 - Medications Medications: Current Medications Bacitracin (Bacitracin) 0 gm TOP BID [facility] Last Admin: 11/05/16 18:27 Dose: Not Given Doxycycline Hyclate (Doryx) 100 mg PO Q12 [facility] PRN Reason: Protocol Last Admin: 11/06/16 09:41 Dose: 100 mg Enoxaparin Sodium (Lovenox) 40 mg SC DAILY [facility] PRN Reason: Protocol Last Admin: 11/06/16 09:42 Dose: 40 mg Folic Acid (Folic Acid) 1 mg PO DAILY [facility] Last Admin: 11/06/16 09:42 Dose: 1 mg Lorazepam (Ativan) 1.5 mg PO Q6H PRN; Protocol PRN Reason: Anxiety Last Admin: 11/06/16 08:51 Dose: 1.5 mg Magnesium Oxide (Mag-Ox) 400 mg PO BID [facility] Last Admin: 11/06/16 09:42 Dose: 400 mg Mirtazapine (Remeron) 30 mg PO HS [facility] Last Admin: 11/05/16 21:01 Dose: 30 mg Multivitamins/Minerals (Therapeutic-M Tab) 1 tab PO 0800 [facility] Last Admin: 11/06/16 09:43 Dose: 1 tab Nystatin (Nystop Topical Powder) 0 gm TOP BID [facility] Last Admin: 11/05/16 18:28 Dose: Not Given Pantoprazole Sodium (Protonix Ec Tab) 40 mg PO 0600 [facility] Last Admin: 11/06/16 05:11 Dose: Not Given Potassium Phos/Sodium Phos (Neutra-Phos) 1 pkt PO TID [facility] Last Admin: 11/06/16 09:38 Dose: 1 pkt Thiamine HCl (Vitamin B1 Tab) 100 mg PO DAILY [facility] Last Admin: 11/06/16 09:43 Dose: 100 mg Tramadol HCl (Ultram) 50 mg PO Q8H PRN PRN Reason: Pain, moderate (4-7) Last Admin: 11/05/16 23:40 Dose: 50 mg Ziprasidone (Geodon Inj) 20 mg IM Q8 PRN; Protocol PRN Reason: Agitation Last Admin: 11/06/16 09:35 Dose: 20 mg - Labs Labs: 11/06/16 07:20 11/06/16 07:20 PT 10.5 Seconds (9.9-11.8) 10/29/16 10:41 INR 0.97 (0.93-1.08) 10/29/16 10:41 APTT 27.5 Seconds (23.7-30.8) 10/29/16 10:41 - Constitutional Appears: Non-toxic, No Acute Distress - Head Exam Head Exam: ATRAUMATIC, NORMOCEPHALIC - Eye Exam Eye Exam: EOMI - ENT Exam ENT Exam: Mucous Membranes Moist - Neck Exam Neck Exam: Full ROM, Normal Inspection - Respiratory Exam Respiratory Exam: NORMAL BREATHING PATTERN. absent: Chest Wall Tenderness, Respiratory Distress - Cardiovascular Exam Cardiovascular Exam: +S1, +S2 - GI/Abdominal Exam GI & Abdominal Exam: Soft, Normal Bowel Sounds. absent: Tenderness - Extremities Exam Extremities Exam: Full ROM, Normal Inspection - Back Exam Back Exam: NORMAL INSPECTION - Neurological Exam Neurological Exam: Alert, Awake - Psychiatric Exam Psychiatric exam: Normal Affect, Normal Mood - Skin Skin Exam: Dry, Intact, Normal Color, Warm Assessment and Plan - Assessment and Plan (Free Text) Assessment: This is a 66 yo male with past medical hx of alcoholism, gerd, gastritis presenting with alcoholic intoxication, ams, and ketones in urine 1. Alcoholic ketoacidosis -po thiamine, folic acid, MVs -will dc tele -urine drug screen positive for benzos -alc level 349 -[facility] protocol -po ativan 1.5 mg q 6 prn -fall precautions -aspiration precautions -seizure precautions -continue mirtazapine 30 mg po hs -continue ziprasidone 20 IM q 8 prn -psych consult placed. recs appreciated. -psychiatry has signed off -pt's tremor greatly improved 2. Positive blood culture -2 positive blood cultures -ID consult. Dr. Chowdary. recs appreciated. -repeat blood cultures negative -will stop doxycycline 3. Rash in groin -will add topical antifungal nystatin cream 4. Elevated LFTs -continue to monitor -trending down 5. GI/DVT ppx -protonix 40 daily -scds -repleting phos with neutra phos dw Dr. Hernandez <Brenda Hernandez - Last Filed: 11/06/16 17:52> Objective - Vital Signs/Intake and Output Vital Signs (last 24 hours): Temp Pulse Resp BP Pulse Ox 98.2 F 84 20 101/68 98 11/06/16 16:00 11/06/16 16:00 11/06/16 16:00 11/06/16 16:00 11/06/16 16:00 Intake and Output: 11/06/16 11/06/16 06:59 18:59 Intake Total 2100 840 Output Total 400 Balance 1700 840 - Medications Medications: Current Medications Bacitracin (Bacitracin) 0 gm TOP BID [facility] Last Admin: 11/05/16 18:27 Dose: Not Given Enoxaparin Sodium (Lovenox) 40 mg SC DAILY [facility] PRN Reason: Protocol Last Admin: 11/06/16 09:42 Dose: 40 mg Folic Acid (Folic Acid) 1 mg PO DAILY [facility] Last Admin: 11/06/16 09:42 Dose: 1 mg Lorazepam (Ativan) 1.5 mg PO Q6H PRN; Protocol PRN Reason: Anxiety Last Admin: 11/06/16 17:03 Dose: 1.5 mg Magnesium Oxide (Mag-Ox) 400 mg PO BID [facility] Last Admin: 11/06/16 17:03 Dose: 400 mg Mirtazapine (Remeron) 30 mg PO HS [facility] Last Admin: 11/05/16 21:01 Dose: 30 mg Multivitamins/Minerals (Therapeutic-M Tab) 1 tab PO 0800 [facility] Last Admin: 11/06/16 09:43 Dose: 1 tab Nystatin (Nystop Topical Powder) 0 gm TOP BID [facility] Last Admin: 11/05/16 18:28 Dose: Not Given Pantoprazole Sodium (Protonix Ec Tab) 40 mg PO 0600 [facility] Last Admin: 11/06/16 05:11 Dose: Not Given Potassium Phos/Sodium Phos (Neutra-Phos) 1 pkt PO TID [facility] Last Admin: 11/06/16 09:38 Dose: 1 pkt Thiamine HCl (Vitamin B1 Tab) 100 mg PO DAILY [facility] Last Admin: 11/06/16 09:43 Dose: 100 mg Tramadol HCl (Ultram) 50 mg PO Q8H PRN PRN Reason: Pain, moderate (4-7) Last Admin: 11/06/16 15:09 Dose: 50 mg Ziprasidone (Geodon Inj) 20 mg IM Q8 PRN; Protocol PRN Reason: Agitation Last Admin: 11/06/16 09:35 Dose: 20 mg - Labs Labs: 11/06/16 07:20 11/06/16 07:20 PT 10.5 Seconds (9.9-11.8) 10/29/16 10:41 INR 0.97 (0.93-1.08) 10/29/16 10:41 APTT 27.5 Seconds (23.7-30.8) 10/29/16 10:41 Attending/Attestation - Attestation I have personally seen and examined this patient.: Yes I have fully participated in the care of the patient.: Yes I have reviewed all pertinent clinical information, including history, physical exam and plan: Yes Notes (Text): 11/06/16 17:50 66 year old male with past medical history of chronic ETOH abuse who presented with alcohol intoxication complicated with alcohol withdrawal. He is on multivitamin, folic acid and thiamine. He is on ativan prn. Psychiatry had seen him yesterday for increased agitation and anxiety. Today he is doing better. States he will go home tomorrow. He is restless at times as per nursing staff. Psychiatry follow up was requested. Chest wall pain has improved. He is on tramadol. Serial cardiac enzymes were negative. His LFTs have improved. Likely were elevated secondary to chronic ETOH abuse. His initial blood cultures grew coag negative staph; likely contaminant. Repeat blood cultures are negative to date. Brenda Hernandez MD Hospitalist.
--- NOTE | 2016-11-06 17:49 | CP.PCM.PN ---
Subjective - Date & Time of Evaluation Date of Evaluation: 11/06/16 Time of Evaluation: 11:40 - Subjective Subjective: Comfortable, afebrile, not in distress, at times with agitation. Objective - Vital Signs/Intake and Output Vital Signs (last 24 hours): Temp Pulse Resp BP Pulse Ox 98.2 F 103 H 20 131/86 97 11/06/16 07:30 11/06/16 07:30 11/06/16 07:30 11/06/16 07:30 11/06/16 07:30 Intake and Output: 11/06/16 11/06/16 06:59 18:59 Intake Total 2100 Output Total 400 Balance 1700 - Medications Medications: Current Medications Bacitracin (Bacitracin) 0 gm TOP BID [facility] Last Admin: 11/05/16 18:27 Dose: Not Given Doxycycline Hyclate (Doryx) 100 mg PO Q12 [facility] PRN Reason: Protocol Last Admin: 11/05/16 21:00 Dose: 100 mg Enoxaparin Sodium (Lovenox) 40 mg SC DAILY [facility] PRN Reason: Protocol Last Admin: 11/05/16 09:01 Dose: 40 mg Folic Acid (Folic Acid) 1 mg PO DAILY [facility] Last Admin: 11/05/16 09:03 Dose: 1 mg Lorazepam (Ativan) 1.5 mg PO Q6H PRN; Protocol PRN Reason: Anxiety Last Admin: 11/06/16 08:51 Dose: 1.5 mg Magnesium Oxide (Mag-Ox) 400 mg PO BID [facility] Last Admin: 11/05/16 18:33 Dose: 400 mg Mirtazapine (Remeron) 30 mg PO HS [facility] Last Admin: 11/05/16 21:01 Dose: 30 mg Multivitamins/Minerals (Therapeutic-M Tab) 1 tab PO 0800 [facility] Last Admin: 11/05/16 09:02 Dose: 1 tab Nystatin (Nystop Topical Powder) 0 gm TOP BID [facility] Last Admin: 11/05/16 18:28 Dose: Not Given Pantoprazole Sodium (Protonix Ec Tab) 40 mg PO 0600 [facility] Last Admin: 11/06/16 05:11 Dose: Not Given Potassium Phos/Sodium Phos (Neutra-Phos) 1 pkt PO TID [facility] Last Admin: 11/05/16 18:33 Dose: 1 pkt Thiamine HCl (Vitamin B1 Tab) 100 mg PO DAILY [facility] Last Admin: 11/05/16 09:02 Dose: 100 mg Tramadol HCl (Ultram) 50 mg PO Q8H PRN PRN Reason: Pain, moderate (4-7) Last Admin: 11/05/16 23:40 Dose: 50 mg Ziprasidone (Geodon Inj) 20 mg IM Q8 PRN; Protocol PRN Reason: Agitation Last Admin: 11/06/16 01:30 Dose: 20 mg - Labs Labs: 11/06/16 07:20 11/06/16 07:20 PT 10.5 Seconds (9.9-11.8) 10/29/16 10:41 INR 0.97 (0.93-1.08) 10/29/16 10:41 APTT 27.5 Seconds (23.7-30.8) 10/29/16 10:41 - Constitutional Appears: Non-toxic, No Acute Distress - Head Exam Head Exam: NORMAL INSPECTION - Neck Exam Neck Exam: absent: Meningismus - Respiratory Exam Respiratory Exam: Decreased Breath Sounds - Cardiovascular Exam Cardiovascular Exam: +S1, +S2 - GI/Abdominal Exam GI & Abdominal Exam: Soft. absent: Tenderness Assessment and Plan - Assessment and Plan (Free Text) Plan: Assessment coagulase negative staph bacteremia, probably contamination Probable alcohol withdrawal syndrome, clinically improving chronic alcoholism GERD gastritis S/P cholecystectomy S/P appendectomy Plan continue to monitor off antibiotics since he is at risk for nosocomial infections
[2016-11-07] MEDS: Pantoprazole 40 mg EC Tab PO SCH (05:23)
[2016-11-07 07:17] LABS: ADD MANUAL DIFF? NO
[2016-11-07 07:30] LABS: BASO # 0.05 K/mm3 (0.0-2.0); BASO % 0.8 % (0.0-3.0); EOS # 0.1 (0.0-0.7); EOS % 1.7 % (1.5-5.0); GRAN # 2.87 (1.4-6.5); GRAN % 47.7 % (50.0-68.0); HEMATOCRIT 34.8 % (42.0-52.0); LYMPH # 1.7 (1.2-3.4); LYMPH % 28.3 % (22.0-35.0); MEAN CELL VOLUME 94.3 fL (80.0-105.0); MEAN CORPUSCULAR HEMOGLOBIN 30.1 pg (25.0-35.0); MEAN CORPUSCULAR HGB CONC 31.9 g/dl (31.0-37.0); MONO # 1.3 (0.1-0.6); MONO % 21.5 % (1.0-6.0); PLATELET COUNT 505 10^3/uL (120.0-450.0); RED CELL DISTRIBUTION WIDTH 14.7 % (11.5-14.5)
[2016-11-07 07:37] LABS: ALB/GLOB RATIO 1.2 (1.1-1.8); ALKALINE PHOSPHATASE 86 U/L (38-133); ALT/SGPT 44 U/L (7-56); AST/SGOT 44 U/L (15-59); BILIRUBIN,TOTAL 0.3 mg/dL (0.2-1.3); BLOOD UREA NITROGEN 13 mg/dL (7-21); CALCIUM 9.1 mg/dL (8.4-10.5); CARBON DIOXIDE 30 mmol/L (21-33); CHLORIDE 100 mmol/L (95-110); GFR AFRICAN-AMERICAN > 60; GLUCOSE,RANDOM 86 mg/dL (70-110); MAGNESIUM 2.2 mg/dL (1.7-2.2); PHOSPHOROUS 4.1 mg/dL (2.5-4.5); POTASSIUM 4.2 mmol/L (3.6-5.0); SODIUM 138 mmol/L (132-148); TOTAL PROTEIN 6.9 g/dL (5.8-8.3)
[2016-11-07] MEDS: Magnesium Oxide 400 mg Tab UD PO SCH ×2 (10:03→18:05)
[2016-11-07] MEDS: Bacitracin Ointment 30 GM TUBE TOP SCH ×2 (10:03→18:02)
[2016-11-07] MEDS: Nystatin 100,000 Units/gm Topical Pow(15 gm) TOP SCH (10:04)
[2016-11-07] MEDS: Potassium & Sodium Phosphate PO SCH ×3 (10:04→18:03)
[2016-11-07] MEDS: Enoxaparin 40 mg Syringe SC SCH (10:11)
--- NOTE | 2016-11-07 14:17 | CP.PCM.PN ---
<Lalo Cat - Last Filed: 11/07/16 14:18> Subjective - Date & Time of Evaluation Date of Evaluation: 11/07/16 Time of Evaluation: 14:15 - Subjective Subjective: Med progress note. Attending: Dr Hernandez Pt seen/examined at bedside. No acute distress. Pt getting geodon because of agitation. Pt now ambulating without difficulty. DC plan for tomorrow. No fevers , chills, vomiting, diarrhea. Objective - Vital Signs/Intake and Output Vital Signs (last 24 hours): Temp Pulse Resp BP Pulse Ox 98.4 F 90 17 115/78 98 11/07/16 09:50 11/07/16 09:50 11/07/16 09:50 11/07/16 09:50 11/07/16 09:50 Intake and Output: 11/07/16 11/07/16 06:59 18:59 Intake Total 1500 Output Total 650 Balance 850 - Medications Medications: Current Medications Bacitracin (Bacitracin) 0 gm TOP BID [facility] Last Admin: 11/05/16 18:27 Dose: Not Given Enoxaparin Sodium (Lovenox) 40 mg SC DAILY [facility] PRN Reason: Protocol Last Admin: 11/06/16 09:42 Dose: 40 mg Folic Acid (Folic Acid) 1 mg PO DAILY [facility] Last Admin: 11/06/16 09:42 Dose: 1 mg Lorazepam (Ativan) 1.5 mg PO Q6H PRN; Protocol PRN Reason: Anxiety Last Admin: 11/07/16 05:23 Dose: 1.5 mg Magnesium Oxide (Mag-Ox) 400 mg PO BID [facility] Last Admin: 11/06/16 17:03 Dose: 400 mg Mirtazapine (Remeron) 45 mg PO HS [facility] Multivitamins/Minerals (Therapeutic-M Tab) 1 tab PO 0800 [facility] Last Admin: 11/06/16 09:43 Dose: 1 tab Nystatin (Nystop Topical Powder) 0 gm TOP BID [facility] Last Admin: 11/05/16 18:28 Dose: Not Given Pantoprazole Sodium (Protonix Ec Tab) 40 mg PO 0600 [facility] Last Admin: 11/07/16 05:23 Dose: 40 mg Potassium Phos/Sodium Phos (Neutra-Phos) 1 pkt PO TID [facility] Last Admin: 11/06/16 19:25 Dose: Not Given Thiamine HCl (Vitamin B1 Tab) 100 mg PO DAILY [facility] Last Admin: 11/06/16 09:43 Dose: 100 mg Tramadol HCl (Ultram) 50 mg PO Q8H PRN PRN Reason: Pain, moderate (4-7) Last Admin: 11/06/16 22:12 Dose: 50 mg - Labs Labs: 11/07/16 07:00 11/07/16 07:00 PT 10.5 Seconds (9.9-11.8) 10/29/16 10:41 INR 0.97 (0.93-1.08) 10/29/16 10:41 APTT 27.5 Seconds (23.7-30.8) 10/29/16 10:41 - Constitutional Appears: Non-toxic, No Acute Distress, Cachectic, Chronically Ill - Head Exam Head Exam: ATRAUMATIC, NORMAL INSPECTION, NORMOCEPHALIC - Eye Exam Eye Exam: EOMI - ENT Exam ENT Exam: Mucous Membranes Moist - Neck Exam Neck Exam: Full ROM - Respiratory Exam Respiratory Exam: NORMAL BREATHING PATTERN. absent: Respiratory Distress - Cardiovascular Exam Cardiovascular Exam: +S1, +S2 - GI/Abdominal Exam GI & Abdominal Exam: Soft, Normal Bowel Sounds. absent: Tenderness - Extremities Exam Extremities Exam: Full ROM, Normal Inspection - Back Exam Back Exam: NORMAL INSPECTION - Neurological Exam Neurological Exam: Alert, Awake - Psychiatric Exam Psychiatric exam: Flat Affect - Skin Skin Exam: Dry, Intact, Normal Color, Warm Assessment and Plan - Assessment and Plan (Free Text) Assessment: This is a 66 yo male with past medical hx of alcoholism, gerd, gastritis presenting with alcoholic intoxication, ams, and ketones in urine 1. Alcoholic ketoacidosis -po thiamine, folic acid, MVs -will dc tele -urine drug screen positive for benzos -alc level 349 -[facility] protocol -po ativan 1.5 mg q 6 prn -fall precautions -aspiration precautions -seizure precautions -continue mirtazapine 30 mg po hs -continue ziprasidone 20 IM q 8 prn>> we will discontinue -psych consult placed. recs appreciated. -psychiatry has signed off -pt's tremor greatly improved -plan for dc tomorrow -pt ambulating without difficulty 2. Positive blood culture -2 positive blood cultures -ID consult. Dr. Chowdary. recs appreciated. -repeat blood cultures negative -will stop doxycycline 3. Rash in groin -will add topical antifungal nystatin cream 4. Elevated LFTs -continue to monitor -trending down 5. GI/DVT ppx -protonix 40 daily -scds -repleting phos with neutra phos dw Dr. Hernandez <Brenda Hernandez - Last Filed: 11/07/16 16:57> Objective - Vital Signs/Intake and Output Vital Signs (last 24 hours): Temp Pulse Resp BP Pulse Ox 98.4 F 90 17 115/78 98 11/07/16 09:50 11/07/16 09:50 11/07/16 09:50 11/07/16 09:50 11/07/16 09:50 Intake and Output: 11/07/16 11/07/16 06:59 18:59 Intake Total 1500 Output Total 650 Balance 850 - Medications Medications: Current Medications Bacitracin (Bacitracin) 0 gm TOP BID [facility] Last Admin: 11/07/16 10:03 Dose: Not Given Enoxaparin Sodium (Lovenox) 40 mg SC DAILY [facility] PRN Reason: Protocol Last Admin: 11/06/16 09:42 Dose: 40 mg Folic Acid (Folic Acid) 1 mg PO DAILY [facility] Last Admin: 11/06/16 09:42 Dose: 1 mg Lorazepam (Ativan) 1.5 mg PO Q6H PRN; Protocol PRN Reason: Anxiety Last Admin: 11/07/16 05:23 Dose: 1.5 mg Magnesium Oxide (Mag-Ox) 400 mg PO BID [facility] Last Admin: 11/07/16 10:03 Dose: Not Given Mirtazapine (Remeron) 45 mg PO HS [facility] Multivitamins/Minerals (Therapeutic-M Tab) 1 tab PO 0800 [facility] Last Admin: 11/06/16 09:43 Dose: 1 tab Nystatin (Nystop Topical Powder) 0 gm TOP BID [facility] Last Admin: 11/07/16 10:04 Dose: Not Given Pantoprazole Sodium (Protonix Ec Tab) 40 mg PO 0600 [facility] Last Admin: 11/07/16 05:23 Dose: 40 mg Potassium Phos/Sodium Phos (Neutra-Phos) 1 pkt PO TID [facility] Last Admin: 11/07/16 10:04 Dose: Not Given Thiamine HCl (Vitamin B1 Tab) 100 mg PO DAILY [facility] Last Admin: 11/06/16 09:43 Dose: 100 mg Tramadol HCl (Ultram) 50 mg PO Q8H PRN PRN Reason: Pain, moderate (4-7) Last Admin: 11/06/16 22:12 Dose: 50 mg - Labs Labs: 11/07/16 07:00 11/07/16 07:00 PT 10.5 Seconds (9.9-11.8) 10/29/16 10:41 INR 0.97 (0.93-1.08) 10/29/16 10:41 APTT 27.5 Seconds (23.7-30.8) 10/29/16 10:41 Attending/Attestation - Attestation I have personally seen and examined this patient.: Yes I have fully participated in the care of the patient.: Yes I have reviewed all pertinent clinical information, including history, physical exam and plan: Yes Notes (Text): 11/07/16 16:49 66 year old male with past medical history of chronic ETOH abuse who presented with alcohol intoxication complicated with alcohol withdrawal. He is on multivitamin, folic acid and thiamine. He is on ativan prn. His anxiety and tremor is better. He is still on geodon prn. Psychiatry follow up was requested for medication adjustment for d/c planning tomorrow. We spoke with the patient with psychotherapist social worker and Romanian speaking nurse regarding d/c planning. Patient stated he feels unsteady with leg pain and other nonspecific complaints. However nurse has noted several times during the day he is ambulating in the room and hallways. Chest wall pain has improved. He is on tramadol. Serial cardiac enzymes were negative. His LFTs have improved. Likely were elevated secondary to chronic ETOH abuse. His initial blood cultures grew coag negative staph; likely contaminant. Repeat blood cultures are negative to date. Brenda Hernandez MD Hospitalist.
--- NOTE | 2016-11-07 16:12 | PN ---
DATE: 11/07/2016 Medical team requested followup for this patient because the patient was on p.r.n. Geodon and needed to have IM through the night and medical team was planning to discharge patient and they needed to jaramillo ve advice about medications. The patient was seen today for followup. The patient presented to be s leepy, easily arousable. The patient reported that he feels okay. Denied being depressed, denied th oughts of killing himself. This sheet writer had prolonged conversation with the nursing staff. Overnight patient had episodes of wandering behavior, but was not agitated or aggressive. That is why Geodon IM was given. From this sheet writer's perspective, the patient does not need to be IM as long as patient is not a danger to self or others. Going back to the patient, the patient was alert and oriented to self, place. The patient remembered this sheet writer by her name. The patient reported to have good appe tite, ate 100% of his meal. Denied feeling anxious at the moment of the interview. Vital signs are stable. MEDICATIONS: Reviewed. This sheet writer will increase the dose of Remeron to 45 mg for insomnia and depr essive symptoms. Geodon was discontinued. This sheet writer will implement Seroquel 50 mg at the nighttim e. The patient was on that medication before for mood stabilization. Labs reviewed. MENTAL STATUS EXAMINATION: The patient presented to be sleepy, easily arousable. The patient knows that he is in the hospital and knows this sheet writer by name. Intermittent eye contact. Speech was unde rproductive. Yes/no answers. The patient is Grenadian speaking, but has basic understanding of Yi . Mood described okay. Affect is constricted, mood congruent. Thought process was concrete. Thoug ht content: The patient denied visual, auditory, tactile hallucinations. Denied paranoid ideation. Denied thoughts of harming himself or others, denied intent or plan. Insight and judgment into his addiction to the alcohol is limited. Impulses are predictable. IMPRESSION: Rule out alcohol withdrawal delirium, alcohol use disorder, alcohol withdrawal symptoms which are better. The patient has history of mood disorder secondary to chronic alcohol consumption, has history of alcohol withdrawal delirium. Please see medical team notes for more detailed informa tion. PLAN: Continue current management. Continue multivitamins, thiamine and folic acid. Discontinue Ge odon. Seroquel 50 mg will be started. Remeron was increased to 45 mg for depressive symptoms and in somnia. Social work evaluation. The patient is able to ambulate. This sheet writer will follow up on thi s patient tomorrow, but most likely patient does not need to be in the psychiatric inpatient unit. Thank you very much for letting me participate in the care of your patient. Should you have any ques tions, give me a call back. The patient was discussed with Dr. Hernandez. Emmie Cardona MD cc: [phone] TT: 11/07/2016 16:12:19 Confirmation # [id number] Dictation # [id number] barron
[2016-11-07] MEDS: Multivitamin With Minerals Tab PO SCH (18:05)
--- NOTE | 2016-11-07 18:57 | PN ---
DATE: 11/07/2016 The patient is in bed in no acute distress, nontoxic. PHYSICAL EXAMINATION: VITAL SIGNS: Temperature is 98, blood pressure is 130/80, respiratory rate of 20. HEENT: Unremarkable. NECK: Supple. LUNGS: Have decreased breath sounds. HEART: Normal S1, S2. ABDOMEN: Soft, nontender. LABORATORY DATA: Reveals a white count of 6, hemoglobin of 11, platelets of 505. BUN of 13, creatini ne of 0.7. ASSESSMENT AND PLAN: This is a 66-year-old male with coagulase negative staph, probable contaminatio n in patient with alcoholism, gastroesophageal reflux disease and gastritis. Currently, patient seen early this morning. Off of antibiotics. Review of the orders reveals the patient to be off of anti biotics, afebrile with a white count of 6.0. He is at risk for developing nosocomial infections. Roque Chowdary MD cc: [id number] TT: 11/07/2016 18:56:48 Confirmation # [id number] Dictation # [id number] barron
[2016-11-08] MEDS: Pantoprazole 40 mg EC Tab PO SCH (09:07)
[2016-11-08] MEDS: Magnesium Oxide 400 mg Tab UD PO SCH (10:06)
[2016-11-08] MEDS: Enoxaparin 40 mg Syringe SC SCH (10:06)
[2016-11-08] MEDS: Potassium & Sodium Phosphate PO SCH ×2 (10:07→14:57)
[2016-11-08] MEDS: Multivitamin With Minerals Tab PO SCH (10:07)
--- NOTE | 2016-11-08 10:14 | PN ---
DATE: 11/08/2016 The patient is in bed, in no acute distress, nontoxic. PHYSICAL EXAMINATION: VITAL SIGNS: Temperature is 98, blood pressure is 116/70, respiratory rate 22, heart rate of 90. HEENT: Unremarkable. NECK: Supple. LUNGS: Decreased. HEART: Normal S1, S2. ABDOMEN: Soft, nontender. LABORATORY DATA: Reveals a white count of 6.0 and hemoglobin of 11. Chemistries are noted. Urinaly sis is noted. Review of orders reveals the patient to be off of antibiotics. ASSESSMENT AND PLAN: This is a 66-year-old male with coagulase-negative Staphylococcus most likely c onsistent with a contamination. The patient with alcoholism, gastroesophageal reflux disease and gas tritis. Currently off of antibiotics, afebrile, normal white count. The patient is at risk for deve loping nosocomial infections. Roque Chowdary MD cc: 350 TT: 11/08/2016 10:13:51 Confirmation # [id number] Dictation # [id number] mn
[2016-11-08] MEDS: Bacitracin Ointment 30 GM TUBE TOP SCH ×3 (10:44→12:49)
[2016-11-08] MEDS: Nystatin 100,000 Units/gm Topical Pow(15 gm) TOP SCH (12:50)
--- NOTE | 2016-11-08 15:40 | PN ---
DATE: 11/08/2016 Shortly, the patient is a 66-year-old alcoholic Azeri speaking nancy. This group underwriter was involved into t he patient's care because of possible change in mental status. The patient also has alcohol withdraw al symptoms. This group underwriter adjusted medications. The patient was followed up today. The patient tole rates medications well. No acute events overnight. The patient tolerated Remeron well. Ativan was on tapering dose. Labs within normal limits. The patient is able to ambulate. Case was discussed w ith the nursing staff. The patient does not have any behavioral incidents. The patient had a good n ight sleep. No behavioral disturbances. MENTAL STATUS EXAMINATION: The patient is alert. The patient has good appetite and sleep. The nasreen ent ate 100% of his meal. Intermittent eye contact. Speech was underproductive, yes/no answers. Mo od described, "I'm fine." Affect was flat. Thought process seems to be goal directed. Thought cont ent: The patient denied visual, auditory, tactile hallucinations; denied paranoid ideations. The pa bandar denied thoughts of harming himself or others, denied intent or plan. Insight and judgment are limited into his addiction problems. Impulses are better controlled. IMPRESSION: Alcohol withdrawal symptoms are better. The patient has tolerated Remeron well. On tap ering dose of Ativan. Vital signs are stable. PLAN: The patient was educated about importance to go to inpatient rehab. The patient has history o f noncompliance with medications and feeling resistance with day treatment program. Meanwhile, the p reuben has stable home. The patient has mother and sister who are involved into the patient's care. At the same time, the patient suffers from severe addiction to alcohol. The patient also would bene fit from AA meeting and NA meeting. Physical therapy evaluation in order to make sure that patient i s able to ambulate. Meanwhile, this group underwriter will sign off. The patient needs to be continued on mult ivitamins, thiamine and folic acid. Discussed with the medical team. Thank you very much for letting me participate in the care of your patient. Should you have any ques tions, give me a call back. Emmie Cardona MD cc: [phone] TT: 11/08/2016 12:47:03 Confirmation # [id number] Dictation # [id number] mn
[2016-11-08 17:56] VITALS: BP 141/86; PULSE 107; RESP 20; TEMP 98.7; O2SAT 96
--- NOTE | 2016-11-09 09:55 | CP.PCM.DIS ---
<Lalo Cat - Last Filed: 11/09/16 10:00> Provider - Provider Date of Admission: 10/29/16 14:14 Attending physician: Brenda Hernandez MD Primary care physician: Austin Arce MD Consults: Consults Dr. Dimitris Chowdary/[place] Time Spent in preparation of Discharge (in minutes): 45 Hospital Course - Lab Results Lab Results: Micro Results 10/30/16 21:30 Blood-Venous Blood Culture - Final NO GROWTH AFTER 5 DAYS 10/30/16 21:30 Blood-Venous Gram Stain - Final TEST NOT PERFORMED 10/30/16 21:15 Blood-Venous Blood Culture - Final NO GROWTH AFTER 5 DAYS 10/30/16 21:15 Blood-Venous Gram Stain - Final TEST NOT PERFORMED Most Recent Lab Values WBC 6.0 10^3/ul (4.5-11.0) 11/07/16 07:00 RBC 3.69 10^6/uL (3.5-6.1) 11/07/16 07:00 Hgb 11.1 gm/dL (14.0-18.0) L 11/07/16 07:00 Hct 34.8 % (42.0-52.0) L 11/07/16 07:00 MCV 94.3 fL (80.0-105.0) 11/07/16 07:00 MCH 30.1 pg (25.0-35.0) 11/07/16 07:00 MCHC 31.9 g/dl (31.0-37.0) 11/07/16 07:00 RDW 14.7 % (11.5-14.5) H 11/07/16 07:00 Plt Count 505 10^3/uL (120.0-450.0) H 11/07/16 07:00 MPV 9.0 fl (7.0-11.0) 11/07/16 07:00 Gran % 47.7 % (50.0-68.0) L 11/07/16 07:00 Lymph % (Auto) 28.3 % (22.0-35.0) 11/07/16 07:00 Hartley % (Auto) 21.5 % (1.0-6.0) H 11/07/16 07:00 Eos % (Auto) 1.7 % (1.5-5.0) 11/07/16 07:00 Baso % (Auto) 0.8 % (0.0-3.0) 11/07/16 07:00 Gran # 2.87 (1.4-6.5) 11/07/16 07:00 Lymph # 1.7 (1.2-3.4) 11/07/16 07:00 Hartley # 1.3 (0.1-0.6) H 11/07/16 07:00 Eos # 0.1 (0.0-0.7) 11/07/16 07:00 Baso # 0.05 K/mm3 (0.0-2.0) 11/07/16 07:00 PT 10.5 Seconds (9.9-11.8) 10/29/16 10:41 INR 0.97 (0.93-1.08) 10/29/16 10:41 APTT 27.5 Seconds (23.7-30.8) 10/29/16 10:41 pCO2 25 mm/Hg (35-45) L 10/29/16 13:00 pO2 86.0 mm/Hg (80-100) 10/29/16 13:00 HCO3 13.2 mmol/L (21-28) L 10/29/16 13:00 ABG pH 7.33 (7.35-7.45) L 10/29/16 13:00 ABG Total CO2 14.0 mmol.L (22-28) L 10/29/16 13:00 ABG O2 Saturation 97.0 % (95-98) 10/29/16 13:00 ABG O2 Content 15.3 ML/dl (15-23) 10/29/16 13:00 ABG Base Excess -11.2 mmol/L (-2.0-3.0) L 10/29/16 13:00 ABG Hemoglobin 11.5 g/dL (11.7-17.4) L 10/29/16 13:00 ABG Carboxyhemoglobin 2.0 % (0.5-1.5) H 10/29/16 13:00 POC ABG HHb (Measured) 2.9 % (0-5) 10/29/16 13:00 ABG Methemoglobin 1.3 % (0.0-3.0) 10/29/16 13:00 ABG O2 Capacity 15.8 mL/dl (16-24) L 10/29/16 13:00 Hgb O2 Saturation 93.8 % (95.0-98.0) L 10/29/16 13:00 FiO2 21.0 % 10/29/16 13:00 Sodium 138 mmol/L (132-148) 11/07/16 07:00 Potassium 4.2 mmol/L (3.6-5.0) 11/07/16 07:00 Chloride 100 mmol/L (95-110) 11/07/16 07:00 Carbon Dioxide 30 mmol/L (21-33) 11/07/16 07:00 Anion Gap 12 (10-20) 11/07/16 07:00 BUN 13 mg/dL (7-21) 11/07/16 07:00 Creatinine 0.7 mg/dL (0.5-1.4) 11/07/16 07:00 Est GFR ( Amer) > 60 11/07/16 07:00 Est GFR (Non-Af Amer) > 60 11/07/16 07:00 Random Glucose 86 mg/dL (70-110) 11/07/16 07:00 Calcium 9.1 mg/dL (8.4-10.5) 11/07/16 07:00 Phosphorus 4.1 mg/dL (2.5-4.5) 11/07/16 07:00 Magnesium 2.2 mg/dL (1.7-2.2) 11/07/16 07:00 Total Bilirubin 0.3 mg/dL (0.2-1.3) 11/07/16 07:00 AST 44 U/L (15-59) 11/07/16 07:00 ALT 44 U/L (7-56) 11/07/16 07:00 Alkaline Phosphatase 86 U/L (38-133) 11/07/16 07:00 Lactate Dehydrogenase 438 U/L (333-699) 11/03/16 10:00 Total Creatine Kinase 23 U/L (35-230) L 11/03/16 10:00 CK-MB (CK-2) 2.1 ng/mL (0.0-3.6) 10/29/16 10:41 CK-MB (CK-2) % Cancelled 10/29/16 10:41 Troponin I < 0.01 ng/mL 11/03/16 10:00 Total Protein 6.9 g/dL (5.8-8.3) 11/07/16 07:00 Albumin 3.8 g/dL (3.0-4.8) 11/07/16 07:00 Globulin 3.1 gm/dL 11/07/16 07:00 Albumin/Globulin Ratio 1.2 (1.1-1.8) 11/07/16 07:00 Urine Color Yellow (YELLOW) 10/29/16 12:15 Urine Appearance Clear (CLEAR) 10/29/16 12:15 Urine pH 6.0 (4.7-8.0) 10/29/16 12:15 Ur Specific [place] >= 1.030 (1.005-1.035) 10/29/16 12:15 Urine Protein 100 mg/dL (<30 mg/dL) H 10/29/16 12:15 Urine Glucose (UA) Negative mg/dL (NEGATIVE) 10/29/16 12:15 Urine Ketones 40 mg/dL (NEGATIVE) H 10/29/16 12:15 Urine Blood Small (NEGATIVE) H 10/29/16 12:15 Urine Nitrate Negative (NEGATIVE) 10/29/16 12:15 Urine Bilirubin Negative (NEGATIVE) 10/29/16 12:15 Urine Urobilinogen 1.0 E.U./dL (<1 E.U./dL) H 10/29/16 12:15 Ur Leukocyte Esterase Negative Gely/uL (NEGATIVE) 10/29/16 12:15 Urine RBC 5 - 10 /hpf (0-2) 10/29/16 12:15 Urine WBC 0 - 2 /hpf (0-6) 10/29/16 12:15 Ur Epithelial Cells 0 - 2 /hpf (0-5) 10/29/16 12:15 Urine Bacteria Mod (NEG) 10/29/16 12:15 Hyaline Casts 2 - 5 /hpf 10/29/16 12:15 Fine Granular Casts 0 - 2 /hpf (0-2) 10/29/16 12:15 Coarse Granular Casts Trace /hpf (0-2) H 10/29/16 12:15 Urine Other Fiber 10/29/16 12:15 Urine Opiates Screen Negative (NEGATIVE) 10/29/16 17:35 Urine Methadone Screen Negative (NEGATIVE) 10/29/16 17:35 Ur Barbiturates Screen Negative (NEGATIVE) 10/29/16 17:35 Ur Phencyclidine Scrn Negative (NEGATIVE) 10/29/16 17:35 Ur Amphetamines Screen Negative (NEGATIVE) 10/29/16 17:35 U Benzodiazepines Scrn Positive (NEGATIVE) H 10/29/16 17:35 U Oth Cocaine Metabols Negative (NEGATIVE) 10/29/16 17:35 U Cannabinoids Screen Negative (NEGATIVE) 10/29/16 17:35 Alcohol, Quantitative 349 mg/dL (0-10) H* 10/29/16 14:00 - Hospital Course Hospital Course: Admit date- 10/29 DC date- 11-08 Attending: Mary Consults Psych ID Procedures- none Complications- none Stable for dc HPI: see h/p Labs: see lab data Hospital course This is a 66 yo male with past medical hx of alcoholism, gerd, gastritis presenting with alcoholic intoxication, ams, and ketones in urine 1. Alcoholic ketoacidosis -initially banana bag then po thiamine, folic acid, MVs -will dc tele -urine drug screen positive for benzos -alc level 349 -[facility] protocol -po ativan 1.5 mg q 6 prn -fall precautions -aspiration precautions -seizure precautions -continue mirtazapine 30 mg po hs -continue ziprasidone 20 IM q 8 prn>> we will discontinue -psych consult placed. recs appreciated. -psychiatry has signed off -pt's tremor greatly improved -PT eval -pt ambulating without difficulty 2. Positive blood culture -2 positive blood cultures -ID consult. Dr. Chowdary. recs appreciated. -repeat blood cultures negative -doxy and vanco given -will stop doxycycline and vanco 3. Rash in groin -will add topical antifungal nystatin cream 4. Elevated LFTs -continue to monitor -trending down 5. GI/DVT ppx -protonix 40 daily -scds -repleting phos with neutra phos DC instructions Please return if condition worsens. Please f/u with PMD in 3 days. Please stop drinking all meds and take all meds. DC meds 1. folic acid 2. remeron 3. MVs 4. thiamine - Date & Time of H&P Date of H&P: 10/29/16 Time of H&P: 15:02 Discharge Exam - Head Exam Head Exam: ATRAUMATIC, NORMAL INSPECTION, NORMOCEPHALIC - Eye Exam Eye Exam: EOMI - ENT Exam ENT Exam: Mucous Membranes Moist - Neck Exam Neck exam: Full Rom, Normal Inspection - Respiratory Exam Respiratory Exam: NORMAL BREATHING PATTERN, UNREMARKABLE - Cardiovascular Exam Cardiovascular Exam: +S1, +S2 - GI/Abdominal Exam GI & Abdominal Exam: Normal Bowel Sounds - Extremities Exam Extremities exam: full ROM, normal inspection - Neurological Exam Neurological exam: Alert, CN II-XII Intact - Psychiatric Exam Psychiatric exam: Flat Affect - Skin Skin Exam: Dry, Intact, Normal Color, Warm Discharge Plan - Discharge Medications Prescriptions: Folic Acid 1 mg PO DAILY #30 tab Mirtazapine [Remeron] 45 mg PO HS #30 tab Multimineral/Multivitamin [Therapeutic-M Tab] 1 tab PO 0800 #30 tab Thiamine [Vitamin B1 Tab] 100 mg PO DAILY #30 tab - Follow Up Plan Condition: STABLE Disposition: HOME/ ROUTINE Instructions: Depression (DC), Fall Prevention for Older Adults (GEN), Alcohol Intoxication (DC), Abuse of Alcohol (DC), At-Risk Alcohol Use (DC), Anxiety (DC) Additional Instructions: Follow up with PMD in 2-3 days. If your symptoms recur come back to the closest ED. Take your meds as prescribed. Referrals: Austin Arce MD [Primary Care Provider] - <Brenda Hernandez - Last Filed: 11/09/16 13:53> Provider - Provider Date of Admission: 10/29/16 14:14 Attending physician: Brenda Hernandez MD Primary care physician: Austin Arce MD Hospital Course - Lab Results Lab Results: Micro Results 10/30/16 21:30 Blood-Venous Blood Culture - Final NO GROWTH AFTER 5 DAYS 10/30/16 21:30 Blood-Venous Gram Stain - Final TEST NOT PERFORMED 10/30/16 21:15 Blood-Venous Blood Culture - Final NO GROWTH AFTER 5 DAYS 10/30/16 21:15 Blood-Venous Gram Stain - Final TEST NOT PERFORMED Most Recent Lab Values WBC 6.0 10^3/ul (4.5-11.0) 11/07/16 07:00 RBC 3.69 10^6/uL (3.5-6.1) 11/07/16 07:00 Hgb 11.1 gm/dL (14.0-18.0) L 11/07/16 07:00 Hct 34.8 % (42.0-52.0) L 11/07/16 07:00 MCV 94.3 fL (80.0-105.0) 11/07/16 07:00 MCH 30.1 pg (25.0-35.0) 11/07/16 07:00 MCHC 31.9 g/dl (31.0-37.0) 11/07/16 07:00 RDW 14.7 % (11.5-14.5) H 11/07/16 07:00 Plt Count 505 10^3/uL (120.0-450.0) H 11/07/16 07:00 MPV 9.0 fl (7.0-11.0) 11/07/16 07:00 Gran % 47.7 % (50.0-68.0) L 11/07/16 07:00 Lymph % (Auto) 28.3 % (22.0-35.0) 11/07/16 07:00 Hartley % (Auto) 21.5 % (1.0-6.0) H 11/07/16 07:00 Eos % (Auto) 1.7 % (1.5-5.0) 11/07/16 07:00 Baso % (Auto) 0.8 % (0.0-3.0) 11/07/16 07:00 Gran # 2.87 (1.4-6.5) 11/07/16 07:00 Lymph # 1.7 (1.2-3.4) 11/07/16 07:00 Hartley # 1.3 (0.1-0.6) H 11/07/16 07:00 Eos # 0.1 (0.0-0.7) 11/07/16 07:00 Baso # 0.05 K/mm3 (0.0-2.0) 11/07/16 07:00 PT 10.5 Seconds (9.9-11.8) 10/29/16 10:41 INR 0.97 (0.93-1.08) 10/29/16 10:41 APTT 27.5 Seconds (23.7-30.8) 10/29/16 10:41 pCO2 25 mm/Hg (35-45) L 10/29/16 13:00 pO2 86.0 mm/Hg (80-100) 10/29/16 13:00 HCO3 13.2 mmol/L (21-28) L 10/29/16 13:00 ABG pH 7.33 (7.35-7.45) L 10/29/16 13:00 ABG Total CO2 14.0 mmol.L (22-28) L 10/29/16 13:00 ABG O2 Saturation 97.0 % (95-98) 10/29/16 13:00 ABG O2 Content 15.3 ML/dl (15-23) 10/29/16 13:00 ABG Base Excess -11.2 mmol/L (-2.0-3.0) L 10/29/16 13:00 ABG Hemoglobin 11.5 g/dL (11.7-17.4) L 10/29/16 13:00 ABG Carboxyhemoglobin 2.0 % (0.5-1.5) H 10/29/16 13:00 POC ABG HHb (Measured) 2.9 % (0-5) 10/29/16 13:00 ABG Methemoglobin 1.3 % (0.0-3.0) 10/29/16 13:00 ABG O2 Capacity 15.8 mL/dl (16-24) L 10/29/16 13:00 Hgb O2 Saturation 93.8 % (95.0-98.0) L 10/29/16 13:00 FiO2 21.0 % 10/29/16 13:00 Sodium 138 mmol/L (132-148) 11/07/16 07:00 Potassium 4.2 mmol/L (3.6-5.0) 11/07/16 07:00 Chloride 100 mmol/L (95-110) 11/07/16 07:00 Carbon Dioxide 30 mmol/L (21-33) 11/07/16 07:00 Anion Gap 12 (10-20) 11/07/16 07:00 BUN 13 mg/dL (7-21) 11/07/16 07:00 Creatinine 0.7 mg/dL (0.5-1.4) 11/07/16 07:00 Est GFR ( Amer) > 60 11/07/16 07:00 Est GFR (Non-Af Amer) > 60 11/07/16 07:00 Random Glucose 86 mg/dL (70-110) 11/07/16 07:00 Calcium 9.1 mg/dL (8.4-10.5) 11/07/16 07:00 Phosphorus 4.1 mg/dL (2.5-4.5) 11/07/16 07:00 Magnesium 2.2 mg/dL (1.7-2.2) 11/07/16 07:00 Total Bilirubin 0.3 mg/dL (0.2-1.3) 11/07/16 07:00 AST 44 U/L (15-59) 11/07/16 07:00 ALT 44 U/L (7-56) 11/07/16 07:00 Alkaline Phosphatase 86 U/L (38-133) 11/07/16 07:00 Lactate Dehydrogenase 438 U/L (333-699) 11/03/16 10:00 Total Creatine Kinase 23 U/L (35-230) L 11/03/16 10:00 CK-MB (CK-2) 2.1 ng/mL (0.0-3.6) 10/29/16 10:41 CK-MB (CK-2) % Cancelled 10/29/16 10:41 Troponin I < 0.01 ng/mL 11/03/16 10:00 Total Protein 6.9 g/dL (5.8-8.3) 11/07/16 07:00 Albumin 3.8 g/dL (3.0-4.8) 11/07/16 07:00 Globulin 3.1 gm/dL 11/07/16 07:00 Albumin/Globulin Ratio 1.2 (1.1-1.8) 11/07/16 07:00 Urine Color Yellow (YELLOW) 10/29/16 12:15 Urine Appearance Clear (CLEAR) 10/29/16 12:15 Urine pH 6.0 (4.7-8.0) 10/29/16 12:15 Ur Specific [place] >= 1.030 (1.005-1.035) 10/29/16 12:15 Urine Protein 100 mg/dL (<30 mg/dL) H 10/29/16 12:15 Urine Glucose (UA) Negative mg/dL (NEGATIVE) 10/29/16 12:15 Urine Ketones 40 mg/dL (NEGATIVE) H 10/29/16 12:15 Urine Blood Small (NEGATIVE) H 10/29/16 12:15 Urine Nitrate Negative (NEGATIVE) 10/29/16 12:15 Urine Bilirubin Negative (NEGATIVE) 10/29/16 12:15 Urine Urobilinogen 1.0 E.U./dL (<1 E.U./dL) H 10/29/16 12:15 Ur Leukocyte Esterase Negative Gely/uL (NEGATIVE) 10/29/16 12:15 Urine RBC 5 - 10 /hpf (0-2) 10/29/16 12:15 Urine WBC 0 - 2 /hpf (0-6) 10/29/16 12:15 Ur Epithelial Cells 0 - 2 /hpf (0-5) 10/29/16 12:15 Urine Bacteria Mod (NEG) 10/29/16 12:15 Hyaline Casts 2 - 5 /hpf 10/29/16 12:15 Fine Granular Casts 0 - 2 /hpf (0-2) 10/29/16 12:15 Coarse Granular Casts Trace /hpf (0-2) H 10/29/16 12:15 Urine Other Fiber 10/29/16 12:15 Urine Opiates Screen Negative (NEGATIVE) 10/29/16 17:35 Urine Methadone Screen Negative (NEGATIVE) 10/29/16 17:35 Ur Barbiturates Screen Negative (NEGATIVE) 10/29/16 17:35 Ur Phencyclidine Scrn Negative (NEGATIVE) 10/29/16 17:35 Ur Amphetamines Screen Negative (NEGATIVE) 10/29/16 17:35 U Benzodiazepines Scrn Positive (NEGATIVE) H 10/29/16 17:35 U Oth Cocaine Metabols Negative (NEGATIVE) 10/29/16 17:35 U Cannabinoids Screen Negative (NEGATIVE) 10/29/16 17:35 Alcohol, Quantitative 349 mg/dL (0-10) H* 10/29/16 14:00 Attending/Attestation - Attestation I have personally seen and examined this patient.: Yes I have fully participated in the care of the patient.: Yes I have reviewed all pertinent clinical information, including history, physical exam and plan: Yes Notes (Text): 11/09/16 13:49 66 year old male with past medical history of chronic ETOH abuse who presented with alcohol intoxication complicated with alcohol withdrawal. He was started on ativan prn, multivitamin, folic acid and thiamine. His anxiety and tremor improved. He is still on geodon prn. He was seen by psychiatry and started on remeron. He was counselled on alcohol abstinence. He complained on nonspecific chest wall pain which improved. Serial cardiac enzymes were negative and ACS was ruled out. He had elevated LFTs, likely secondary to chronic ETOH abuse, which improved. His initial blood cultures grew coag negative staph; likely contaminant. Repeat blood cultures are negative to date. He is discharged home to follow up with pmd. Counselled on alcohol abstinence. Brenda Hernandez MD Hospitalist.
== END 2016-11-08 07:39 | disposition home or self-care (01) | DRG 750 ==
LOC: ED 10:05 → ERH 14:14 → 2RSO 17:18 → 5RSO 11-01 12:25
PROVIDERS: ADMIT Internal Medicine; ATTEND Internal Medicine
DX: F10.231 Alcohol dependence with withdrawal delirium (principal); E87.2 Acidosis; E87.6 Hypokalemia; R64 Cachexia; F10.229 Alcohol dependence with intoxication, unspecified; K29.70 Gastritis, unspecified, without bleeding; K21.9 Gastro-esophageal reflux disease without esophagitis; R21 Rash and other nonspecific skin eruption; E83.39 Other disorders of phosphorus metabolism; E83.42 Hypomagnesemia; R07.89 Other chest pain; F10.24 Alcohol dependence with alcohol-induced mood disorder; Y90.8 Blood alcohol level of 240 mg/100 ml or more; Z68.1 Body mass index [BMI] 19.9 or less, adult; Z91.14 Patient's other noncompliance with medication regimen

== ENCOUNTER 2016-11-16 11:33 | Emergency (ER) | payer SELFPAY ==
[2016-11-16 11:34] VITALS: BMI 17.2
[2016-11-16 22:44] VITALS: TEMP 99.9
[2016-11-17 01:58] VITALS: BP 123/77; PULSE 105; RESP 18; O2SAT 97
== END 2016-11-17 06:38 | disposition home or self-care (01) ==
LOC: ED 11:33
DX: F10.129 Alcohol abuse with intoxication, unspecified (principal); F41.9 Anxiety disorder, unspecified

== ENCOUNTER 2016-12-27 11:00 | Observation (INO) | payer OTHER, MEDICAID ==
[2016-12-27 11:01] VITALS: BMI 17.2
[2016-12-27 11:54] VITALS: TEMP 97.8
[2016-12-27] MEDS ORDERED: Sodium Chloride 0.9% 1,000 ML IV SCH (12:00)
[2016-12-27 13:35] LABS: BASO # 0.01 K/mm3 (0.0-2.0); BASO % 0.1 % (0.0-3.0); GRAN # 6.31 (1.4-6.5); GRAN % 78.4 % (50.0-68.0); HEMOGLOBIN 13.2 g/dL (14.0-18.0); LYMPH % 12.7 % (22.0-35.0); MEAN CELL VOLUME 88.7 fl (80.0-105.0); MEAN CORPUSCULAR HEMOGLOBIN 30.6 pg (25.0-35.0); MEAN CORPUSCULAR HGB CONC 34.5 g/dl (31.0-37.0); MEAN PLATELET VOLUME 10.3 fl (7.0-11.0); MONO # 0.7 (0.1-0.6); MONO % 8.8 % (1.0-6.0); PLATELET COUNT 121 10^3/uL (120.0-450.0); RBC 4.32 10^6/uL (3.5-6.1); WHITE BLOOD COUNT 8.1 10^3/ul (4.5-11.0)
--- NOTE | 2016-12-27 13:48 | ED PDOC ---
Arrival/HPI - General Historian: Patient, EMS - History of Present Illness Time/Duration: Prior to Arrival - General Chief Complaint: Medical Clearance Time Seen by Provider: 12/27/16 11:12 - History of Present Illness Narrative History of Present Illness (Text): 12/27/16 13:45 Patient is a 66 yo male, past medical history of alcohol abuse, presents to ED after reportedly "he was found walking outside on the street covered in feces" and appeared "intoxicated". Patient has no complaints. Admits to drinking. Denies headache. Denies recent acute trauma. Denies chest pain or shortness of breath. Patient denies dark or bloody stool or urine. (Ludwig Villegas) Past Medical History - Infectious Disease Hx of Infectious Diseases: None - Tetanus Immunization Tetanus Immunization: Unknown - Past Medical History Past Medical History: Unable to Obtain - Cardiac Hx Cardiac Disorders: Yes Hx Hypertension: Yes - Pulmonary Hx Chronic Obstructive Pulmonary Disease (COPD): Yes - Neurological HX Cerebrovascular Accident: Yes - HEENT Hx HEENT Disorder: Yes (nasal deformity boxing injury) - Renal Hx Renal Disorder: No - Endocrine/Metabolic Hx Endocrine Disorders: No - Hematological/Oncological Hx Blood Disorders: No Hx Cancer: No - Integumentary Hx Dermatological Disorder: Yes Other/Comment: multiple long scars to left forearm, multiple abrasions to both knees and b/l lower legs, poor hygiene,red rash to groin reddened scrotum, 2 small abrasions to forehead and stitches to abrasion between eyebrows, tatoo left arm, left elbow abrasion, multiple abrasions to b/l feet, left foot 2nd toenail black, scrape andreddened, reddened buttocks, and multiple red wounds to sacrum small amt bleeding noted, tip of r great toe small dry wound surrounded by dry skin, poor hygeine - Musculoskeletal/Rheumatological Hx Musculoskeletal Disorders: Yes (rhabdomylysis) Hx Falls: Yes (multiple abrasions) Hx Fractures: Yes (LEFT HIP,LEFT ARM LEG) Hx Rhabdomyolysis: Yes Hx Unsteady Gait: Yes Other/Comment: left hip left arm left leg fx - Gastrointestinal Hx Gastrointestinal Disorders: Yes (gastritis) Hx Gastroesophageal Reflux: Yes - Genitourinary/Gynecological Hx Sexually Transmitted Diseases: No - Psychiatric Hx Psychophysiologic Disorder: Yes Hx Anxiety: Yes Hx Bipolar Disorder: No Hx Depression: Yes Hx Panic Disorder: Yes Hx Psychosis: Yes Hx Schizophrenia: No Hx Substance Use: No Other/Comment: 1.5 liters vodka daily, suicide attempt 40 yrs ago - Past Surgical History Past Surgical History: Unable to Obtain - Surgical History Hx Appendectomy: Yes Hx Cholecystectomy: Yes Hx Orthopedic Surgery: Yes Other/Comment: left femur metal implant, fell off roof of house, sx to left elbow, left hip, left arm - Anesthesia Hx Anesthesia: Yes Hx Anesthesia Reactions: No Hx Malignant Hyperthermia: No - Suicidal Assessment Feels Threatened In Home Enviroment: No Family/Social History Smoking Status: Heavy Smoker > 10 Cigarettes Daily Hx Alcohol Use: Yes (vodka 1.5 liters daily) Hx Substance Use: No Hx Substance Use Treatment: Yes Allergies/Home Meds Allergies/Adverse Reactions: Allergies No Known Allergies Allergy (Verified 12/27/16 11:10) Home Medications: Home Meds Medication Instructions Recorded Confirmed No Known Home Med 12/27/16 12/27/16 Review of Systems - Review of Systems Systems not reviewed;Unavailable: Intoxicated Constitutional: absent: Fevers Eyes: absent: Vision Changes Respiratory: absent: SOB Cardiovascular: absent: Chest Pain, [place] Gastrointestinal: absent: Abdominal Pain, Diarrhea, Nausea, Vomiting, Hematochezia, Hematemesis Musculoskeletal: absent: Back Pain Skin: absent: Rash Neurological: absent: Headache, Dizziness, Focal Weakness Endocrine: absent: Polyuria Psychiatric: absent: Depression, Suicidal Ideation Physical Exam Vital Signs Reviewed: Yes Temperature: Afebrile Pulse: Tachycardic Appearance: Positive for: Unkept Mental Status: Positive for: Alert and Oriented X 3 - Systems Exam Head: Present: Other (old abrasion noted to forehead, no acute bony deformity) Pupils: Present: PERRL Extroacular Muscles: Present: EOMI Nose (External): Present: Other (deformity, appears chornic) Neck: Present: Normal Range of Motion. No: Meningeal Signs Respiratory/Chest: Present: Clear to Auscultation. No: Respiratory Distress Cardiovascular: Present: Regular Rate and Rhythm, Murmurs Abdomen: No: Tenderness, Distention Rectal: No: Gross Blood Upper Extremity: Present: Normal ROM. No: Edema, Deformity Lower Extremity: Present: NORMAL PULSES, Neurovascularly Intact. No: Edema, CALF TENDERNESS Neurological: Present: Motor Func Grossly Intact, Normal Sensory Function Skin: Present: Warm Psychiatric: Present: Alert, Intoxicated. No: Suicidal Ideation, Homicidal Ideation Medical Decision Making - EKG Interpretation Interpreted by ED Physician: Yes Type: 12 lead EKG ED Course and Treatment: 12/27/16 13:49 Patient admits to drinking alcohol. On re-exam, not tremulous or tachycardic. No acute trauma noted. No respiratory distress. Will continue serial exams in ED and monitor for symptoms given apparent alcohol intoxication. Patient was washed and cleaned in the ED. (Ludwig Villegas) 12/28/16 05:23 Patient awake, alert, oriented. Stable for discharge. (Srikanth Carroll) - EKG Interpretation EKG Interpretation (Text): 12/27/16 13:49 normal sinus rhythm rate of 97 with moderate voltage criteria for LVH (Ludwig Villegas ) - Medication Orders Current Medication Orders: Sodium Chloride (Sodium Chloride 0.9%) 1,000 mls @ 100 mls/hr IV .Q10H SUMIT Last Admin: 12/27/16 13:30 Dose: 100 mls/hr Discontinued Medications Chlordiazepoxide (Librium) 50 mg PO STAT STA PRN Reason: Protocol Stop: 12/27/16 17:38 Last Admin: 12/27/16 17:51 Dose: 50 mg Chlordiazepoxide (Librium) 50 mg PO STAT STA PRN Reason: Protocol Stop: 12/27/16 22:42 Last Admin: 12/27/16 23:05 Dose: 50 mg Potassium Chloride (K-Dur 20 Meq Er Tab) 20 meq PO ONCE ONE Stop: 12/27/16 17:31 Last Admin: 12/27/16 17:51 Dose: 20 meq ED OBSERVATION Date of observation admission: 12/27/16 Time of observation admission: 11:30 - Observation admission statement Patient is being placed in observation because:: Serial examinations for apparent alcohol intoxication. (Ludwig Villegas) - Goals of Observation Goals of observation are:: Monitoring of symptoms until clinically sober. (Ludwig Villegas) - Progress Note Progress Note: 12/27/16 13:53 Patient sleeping. Easily arousable. Not tachycardic or tremulous on re-exam. Denies pain or discomfort. 12/27/16 22:51 Patient has eaten. Unsteady on feet. Not hypotensive or tachycardic. Patient with no chest pain currently. EKG unremarkable. Patient endorsed to next shift to continue serial exams, monitoring. (Ludwig Villegas) Disposition/Present on Arrival - Present on Arrival Any Indicators Present on Arrival: No History of DVT/PE: No History of Uncontrolled Diabetes: No Urinary Catheter: No History of Decub. Ulcer: No History Surgical Site Infection Following: None - Disposition Have Diagnosis and Disposition been Completed?: Yes Disposition Time: 23:00 Patient Plan: Observation - Disposition Diagnosis: Alcohol intoxication Disposition: HOME/ ROUTINE Condition: STABLE
[2016-12-27 15:15] LABS: ALB/GLOB RATIO 1.2 (1.1-1.8); ALBUMIN 3.6 g/dL (3.0-4.8); ALT/SGPT 42 U/L (7-56); AST/SGOT 95 U/L (15-59); BLOOD UREA NITROGEN 17 mg/dL (7-21); CALCIUM 8.2 mg/dL (8.4-10.5); GFR AFRICAN-AMERICAN > 60; GFR NON-AFRICAN AMERICAN > 60
[2016-12-27] MEDS ORDERED: Potassium Chloride 20 mEq ER Tab PO ONE (17:30)
--- NOTE | 2016-12-27 23:25 | CARD ---
APPROVED REPORT EKG Measurement Heart [id number] <Conclusion> Normal sinus rhythm Moderate voltage criteria for LVH, may be normal variant Borderline ECG
[2016-12-28 03:07] VITALS: BP 135/69; PULSE 82; RESP 18; O2SAT 98
--- NOTE | 2016-12-28 18:56 | CARD ---
APPROVED REPORT EKG Measurement Heart [id number] <Conclusion> Normal sinus rhythm Moderate voltage criteria for LVH, may be normal variant Borderline ECG
== END 2016-12-28 05:08 | disposition home or self-care (01) ==
LOC: ED 11:00 → EROBSV 11:30
PROVIDERS: ADMIT Emergency Medicine; ATTEND Emergency Medicine
DX: F10.129 Alcohol abuse with intoxication, unspecified (principal); Y90.8 Blood alcohol level of 240 mg/100 ml or more; I10 Essential (primary) hypertension; Z86.73 Personal history of transient ischemic attack (TIA), and cerebral infarction without residual deficits; F17.210 Nicotine dependence, cigarettes, uncomplicated
CPT/HCPCS: 80053; 80320; 85025; 93005; 99284; G0378; J7040

== ENCOUNTER 2017-01-15 19:11 | Observation (INO) | payer OTHER ==
[2017-01-15 19:16] VITALS: BMI 23.7
[2017-01-15 19:32] VITALS: TEMP 97.9
[2017-01-15 19:33] VITALS: RESP 16
--- NOTE | 2017-01-15 19:37 | ED PDOC ---
Arrival/HPI - General Historian: Patient, EMS - History of Present Illness Time/Duration: Prior to Arrival Context: Home <Nat Bae Radha - Last Filed: 01/15/17 23:48> <Tra Vick - Last Filed: 01/16/17 06:44> - General Chief Complaint: Alcohol Ingestion Time Seen by Provider: 01/15/17 19:35 - History of Present Illness Narrative History of Present Illness (Text): 01/15/17 19:35 This 61 yo male is brought to this this ED by BLS for evaluation of alcohol intoxication. According to BLS, patient brother found patient on his bed, drunk and covered with feces. Patient is arousable. . (Nat Bae) Past Medical History - Provider Review Nursing Documentation Reviewed: Yes - Infectious Disease Hx of Infectious Diseases: None - Psychiatric Hx Substance Use: No (unknown) <Toyin Baemartha P - Last Filed: 01/15/17 23:48> Family/Social History - Physician Review Nursing Documentation Reviewed: Yes Family/Social History: Other (non-contributory) Smoking Status: Current Some Days Smoker Hx Alcohol Use: Yes Frequency of alcohol use: Daily Hx Substance Use: No (unknown) <Toyin Baemartha Garcia - Last Filed: 01/15/17 23:48> Allergies/Home Meds <Nat Bae Radha - Last Filed: 01/15/17 23:48> <Tra Vick - Last Filed: 01/16/17 06:44> Allergies/Adverse Reactions: Allergies Unobtainable Allergy (Verified 01/15/17 19:16) Home Medications: Home Meds Medication Instructions Recorded Confirmed Unobtainable 01/15/17 01/15/17 Review of Systems - Review of Systems Systems not reviewed;Unavailable: Intoxicated Constitutional: Normal. absent: Fatigue, Weight Change, Fevers Eyes: Normal ENT: Normal Respiratory: Normal. absent: SOB, Cough Cardiovascular: Normal Gastrointestinal: Normal. absent: Abdominal Pain, Nausea, Vomiting Genitourinary Male: Normal Musculoskeletal: Normal Skin: Normal Neurological: Normal Endocrine: Normal Hemo/Lymphatic: Normal Psychiatric: Normal. absent: Suicidal Ideation <Toyin Baemartha P - Last Filed: 01/15/17 23:48> Physical Exam Temperature: Afebrile Blood Pressure: Normal Pulse: Regular Respiratory Rate: Normal Appearance: Positive for: Well-Appearing, Non-Toxic, Comfortable Pain Distress: None Mental Status: Positive for: other (mild alcohol intoxicated) - Systems Exam Head: Present: Atraumatic, Normocephalic. No: Tenderness, Contusion, Swelling, Ecchymosis, Abrasion, Laceration Pupils: Present: PERRL Extroacular Muscles: Present: EOMI Conjunctiva: Present: Normal Mouth: Present: Moist Mucous Membranes, Normal Tounge Pharnyx: Present: Normal. No: ERYTHEMA, EXUDATE, TONSILS ENLARGED Nose (External): Present: Atraumatic Nose (Internal): Present: Normal Inspection Neck: Present: Normal Range of Motion, Trachea Midline. No: Meningeal Signs, MIDLINE TENDERNESS Respiratory/Chest: Present: Clear to Auscultation, Good Air Exchange. No: Respiratory Distress, Accessory Muscle Use, Tender to Palpation Cardiovascular: Present: Regular Rate and Rhythm, Normal S1, S2. No: Murmurs Abdomen: Present: Normal Bowel Sounds. No: Tenderness, Distention, Peritoneal Signs Back: Present: Normal Inspection Upper Extremity: Present: Normal Inspection, Normal ROM, NORMAL PULSES, Neurovascularly Intact, Capillary Refill < 2s. No: Cyanosis, Edema Lower Extremity: Present: Normal Inspection, NORMAL PULSES, Normal ROM, Neurovascularly Intact, Capillary Refill < 2 s. No: Edema, CALF TENDERNESS Neurological: Present: GCS=15, CN II-XII Intact, Speech Normal Skin: Present: Warm, Dry, Normal Color. No: Rashes Psychiatric: Present: Alert, Intoxicated <Nat Bae P - Last Filed: 01/15/17 23:48> Medical Decision Making <Nat Bae - Last Filed: 01/15/17 23:48> <Tra Vick - Last Filed: 01/16/17 06:44> ED Course and Treatment: 01/15/17 23:50 Patient is awake. Patient tolerated juice, and food. Patient stated his right forearm hurts, and he would like pain medication. Right forearm was evaluated and appears without swelling, ecchymosis, erythema, or deformity. I v site was inserted in the right forearm. I reviewed previous labs with normal BUN/ creatine. Toradol IVP will be ordered (Nat Bae) - Medication Orders Current Medication Orders: Discontinued Medications Multivitamins/Vitamin C 10 ml/Thiamine HCl 100 mg/ Folic Acid 1 mg/ Sodium Chloride 1,011.2 mls @ 1,000 mls/hr IV .Q1H1M ONE Stop: 01/15/17 20:57 Last Admin: 01/15/17 21:08 Dose: 1,000 mls/hr Ketorolac Tromethamine (Toradol) 15 mg IVP STAT STA Stop: 01/15/17 23:55 Last Admin: 01/16/17 00:23 Dose: 15 mg Lorazepam (Ativan) 1 mg IVP ONCE ONE PRN Reason: Protocol Stop: 01/15/17 19:58 Last Admin: 01/15/17 21:16 Dose: 1 mg Morphine Sulfate (Morphine) 2 mg IVP STAT STA Stop: 01/16/17 05:14 Last Admin: 01/16/17 05:33 Dose: 2 mg ED OBSERVATION Date of observation admission: 01/15/17 Time of observation admission: 19:35 <Nat Bae P - Last Filed: 01/15/17 23:48> Discharge: Yes <Tra Vick - Last Filed: 01/16/17 06:44> - Observation admission statement Patient is being placed in observation because:: Alcohol intoxication (CatalinoNahim P) - Goals of Observation Goals of observation are:: monitoring for symptoms (Toyin Baeim P) - Progress Note Progress Note: 01/15/17 19:35 Pt presented for alcohol intoxication. Will observe pending sobriety. 01/15/17 21:35 Pt resting comfortably, no new complaints. 01/15/17 23:35 Pt sleeping, in no acute distress. 01/16/17 01:35 Pt resting comfortably, no new complaints. 01/16/17 03:35 Pt sleeping, in no acute distress. 01/16/17 05:30 Pt resting comfortably, no new complaints. (Tra Vick) - PA / [employer] / Resident Statement / has reviewed & agrees with the documentation as recorded. <Tra Vick - Last Filed: 01/16/17 06:44> Disposition/Present on Arrival - Present on Arrival History of DVT/PE: No History of Uncontrolled Diabetes: No Urinary Catheter: No History of Decub. Ulcer: No History Surgical Site Infection Following: None <Bae,Nahim P - Last Filed: 01/15/17 23:48> - Present on Arrival Any Indicators Present on Arrival: No - Disposition Have Diagnosis and Disposition been Completed?: Yes Disposition Time: 06:44 <Tra Vick - Last Filed: 01/16/17 06:44> - Disposition Diagnosis: Alcohol abuse Disposition: HOME/ ROUTINE Condition: GOOD
[2017-01-15] MEDS ORDERED: Multivitamin (MVI) 10 ML, Thiamine 100 MG, Folic Acid 1 MG in Sodium Chloride 0.9% 1,00... IV ONE (19:57)
[2017-01-15 23:51] VITALS: O2SAT 96
[2017-01-16] MEDS ORDERED: Morphine 2 mg/ml ISec IVP STA (05:13)
[2017-01-16 06:32] VITALS: BP 148/73; PULSE 82
== END 2017-01-16 06:44 | disposition home or self-care (01) ==
LOC: ED 19:11 → EROBSV 19:35
PROVIDERS: ADMIT Emergency Medicine; ATTEND Emergency Medicine
DX: F10.10 Alcohol abuse, uncomplicated (principal)
CPT/HCPCS: 96374; 96375; 99284; G0378; J1885; J2060; J2270; J3411; J7040

== ENCOUNTER 2017-01-18 20:37 | Inpatient (IN) | payer OTHER, MEDICAID ==
[2017-01-18 21:44] LABS: GRAN # 12.5 (1.4-6.5); HEMATOCRIT 29.2 % (42.0-52.0); LYMPH % 6.9 % (22.0-35.0); MEAN CELL VOLUME 89.3 fl (80.0-105.0); MEAN CORPUSCULAR HEMOGLOBIN 29.7 pg (25.0-35.0); MEAN CORPUSCULAR HGB CONC 33.2 g/dl (31.0-37.0); MEAN PLATELET VOLUME 9.8 fl (7.0-11.0); MONO % 7.1 % (1.0-6.0); RED CELL DISTRIBUTION WIDTH 15.2 % (11.5-14.5); WHITE BLOOD COUNT 14.5 10^3/ul (4.5-11.0)
--- NOTE | 2017-01-18 21:49 | ED PDOC ---
Arrival/HPI - General Chief Complaint: Alcohol Ingestion Time Seen by Provider: 01/18/17 20:55 Historian: Patient - History of Present Illness Narrative History of Present Illness (Text): 01/18/17 21:49 A 66 year old male current heavy smoker, whose past medical history includes gastritis, syncope, nicotine dependence, etoh abuse, anxiety, depression, CVA, and panic disorder, presents to the emergency department brought in by EMS after being found on the ground. The patient family states that he was drinking earlier today and he fell down due to intoxication. The patient denies chest pain, fever, nausea, abdominal pain, or any complaints at this time. . Time/Duration: Prior to Arrival Symptom Onset: Other Symptom Course: Unchanged Activities at Onset: Significant (etoh use ) Past Medical History - Provider Review Nursing Documentation Reviewed: Yes - Infectious Disease Hx of Infectious Diseases: None - Tetanus Immunization Tetanus Immunization: Unknown - Past Medical History Past Medical History: Unable to Obtain - Cardiac Hx Cardiac Disorders: Yes Hx Hypertension: Yes - Pulmonary Hx Respiratory Disorders: Yes Hx Chronic Obstructive Pulmonary Disease (COPD): Yes - Neurological Hx Neurological Disorder: Yes HX Cerebrovascular Accident: Yes - HEENT Hx HEENT Disorder: Yes (nasal deformity boxing injury) - Renal Hx Renal Disorder: No - Endocrine/Metabolic Hx Endocrine Disorders: No - Hematological/Oncological Hx Blood Disorders: No Hx Cancer: No - Integumentary Hx Dermatological Disorder: Yes Other/Comment: black, scrape andreddened, reddened buttocks, and multiple red wounds to sacrum small amt bleeding noted, tip of r great toe small dry wound surrounded by dry skin, poor hygeine - Musculoskeletal/Rheumatological Hx Musculoskeletal Disorders: Yes Hx Falls: Yes Hx Fractures: Yes Hx Rhabdomyolysis: Yes Hx Unsteady Gait: Yes Other/Comment: left hip left arm left leg fx - Gastrointestinal Hx Gastrointestinal Disorders: Yes (gastritis) Hx Gastroesophageal Reflux: Yes - Genitourinary/Gynecological Hx Genitourinary Disorders: No Hx Sexually Transmitted Diseases: No - Psychiatric Hx Psychophysiologic Disorder: Yes Hx Anxiety: Yes Hx Bipolar Disorder: No Hx Depression: Yes Hx Panic Disorder: Yes Hx Psychosis: Yes Hx Schizophrenia: No Hx Substance Use: No Other/Comment: 1.5 liters vodka daily, suicide attempt 40 yrs ago - Past Surgical History Past Surgical History: Unable to Obtain - Surgical History Hx Appendectomy: Yes Hx Cholecystectomy: Yes Hx Orthopedic Surgery: Yes Other/Comment: left femur metal implant, fell off roof of house, sx to left elbow, left hip, left arm - Anesthesia Hx Anesthesia: Yes Hx Anesthesia Reactions: No Hx Malignant Hyperthermia: No - Suicidal Assessment Feels Threatened In Home Enviroment: No Family/Social History - Physician Review Nursing Documentation Reviewed: Yes Family/Social History: No Known Family HX Smoking Status: Heavy Smoker > 10 Cigarettes Daily Hx Alcohol Use: Yes (vodka 1.5 liters daily) Frequency of alcohol use: Daily Hx Substance Use: No Hx Substance Use Treatment: Yes Allergies/Home Meds Allergies/Adverse Reactions: Allergies No Known Allergies Allergy (Verified 01/18/17 20:42) Home Medications: Home Meds Medication Instructions Recorded Confirmed Unobtainable 01/18/17 01/18/17 Review of Systems - Physician Review All systems were reviewed & negative as marked: Yes - Review of Systems Constitutional: absent: Fevers Cardiovascular: absent: Chest Pain Gastrointestinal: absent: Nausea, Appetite Changes Physical Exam Vital Signs Reviewed: Yes Vital Signs Temp Pulse Resp BP Pulse Ox 01/18/17 20:55 97.5 F L 90 26 H 123/75 97 Temperature: Afebrile Blood Pressure: Normal Pulse: Regular Respiratory Rate: Normal Appearance: Positive for: Well-Appearing, Non-Toxic, Comfortable Pain Distress: None Mental Status: Positive for: Alert and Oriented X 3 Finger Stick Blood Glucose: 117 - Systems Exam Head: Present: Atraumatic, Normocephalic Pupils: Present: PERRL Extroacular Muscles: Present: EOMI Conjunctiva: Present: Normal Mouth: Present: Moist Mucous Membranes Neck: Present: Normal Range of Motion Respiratory/Chest: Present: Clear to Auscultation, Good Air Exchange. No: Respiratory Distress, Accessory Muscle Use Cardiovascular: Present: Regular Rate and Rhythm, Normal S1, S2. No: Murmurs Abdomen: Present: Normal Bowel Sounds. No: Tenderness, Distention, Peritoneal Signs Back: Present: Normal Inspection Upper Extremity: Present: Normal Inspection. No: Cyanosis, Edema Lower Extremity: Present: Normal Inspection. No: Edema Neurological: Present: GCS=15, CN II-XII Intact, Speech Normal Skin: Present: Warm, Dry, Normal Color. No: Rashes Psychiatric: Present: Alert, Oriented x 3, Normal Insight, Normal Concentration Medical Decision Making ED Course and Treatment: 01/18/17 21:47 Impression: A 66 year old male brought in by EMS for intoxication. Differential Diagnosis included but are not limited to: Plan: -- Head CT -- Labs -- Reassess and disposition Prior Visits: Notes and results from previous visits were reviewed. The patient was last seen in the emergency department on 12/27/16 for alcohol intoxication. The patient was discharged home same day Progress Notes: - Lab Interpretations Lab Results: 01/18/17 21:26 01/18/17 21:26 Lab Results 01/18/17 21:26: Alcohol, Quantitative 264 H 01/18/17 21:26: Sodium 133, Potassium 2.8 L*, Chloride 91 L, Carbon Dioxide 24, Anion Gap 21 H, BUN 16, Creatinine 0.6, Est GFR ( Amer) > 60, Est GFR ( Non-Af Amer) > 60, Random Glucose 122 H, Calcium 8.5, Total Bilirubin 1.0, AST 99 H, ALT 60 H, Alkaline Phosphatase 89, Total Protein 7.0, Albumin 4.1, Globulin 2.9, Albumin/Globulin Ratio 1.4 01/18/17 21:26: WBC 14.5 H D, RBC 3.27 L, Hgb 9.7 L D, Hct 29.2 L, MCV 89.3, MCH 29.7, MCHC 33.2, RDW 15.2 H, Plt Count 137, MPV 9.8, Gran % 86.0 H, Lymph % (Auto) 6.9 L, [place] % (Auto) 7.1 H, Eos % (Auto) 0.0 L, Baso % (Auto) 0.0, Gran # 12.50 H, Lymph # 1.0 L, [place] # 1.0 H, Eos # 0.0, Baso # 0.00 - RAD Interpretation Radiology Orders: 01/18/17 20:58 HEAD W/O CONTRAST [CT] Stat - Medication Orders Current Medication Orders: Magnesium Sulfate 2 gm/ Sodium (Chloride) 104 mls @ 102 mls/hr IVPB ONCE ONE Stop: 01/18/17 23:08 Potassium Chloride (Potassium Chloride 10 Meq/100 Ml) 10 meq in 100 mls @ 100 mls/hr IVPB Q2H SUMIT Stop: 01/19/17 01:14 Discontinued Medications Potassium Chloride (Potassium Chloride Oral Soln) 40 meq PO STAT STA Stop: 01/18/17 22:09 - Scribe Statement The provider has reviewed the documentation as recorded by the Nadiya Capps Provider Khloeibe Attestation: All medical record entries made by the Scribe were at my direction and personally dictated by me. I have reviewed the chart and agree that the record accurately reflects my personal performance of the history, physical exam, medical decision making, and the department course for this patient. I have also personally directed, reviewed, and agree with the discharge instructions and disposition. Disposition/Present on Arrival - Present on Arrival Any Indicators Present on Arrival: No History of DVT/PE: No History of Uncontrolled Diabetes: No Urinary Catheter: No History of Decub. Ulcer: No History Surgical Site Infection Following: None - Disposition Have Diagnosis and Disposition been Completed?: Yes Diagnosis: Alcohol intoxication, Hypokalemia Disposition Time: 23:00 Condition: UNKNOWN Referrals: PCP,NO [Primary Care Provider] - Follow up with primary Forms: [employer] ([place]ian)
[2017-01-18 21:55] LABS: ALB/GLOB RATIO 1.4 (1.1-1.8); ALKALINE PHOSPHATASE 89 U/L (38-126); ALT/SGPT 60 U/L (7-56); AST/SGOT 99 U/L (17-59); BLOOD UREA NITROGEN 16 mg/dL (7-21); CALCIUM 8.5 mg/dL (8.4-10.5); CARBON DIOXIDE 24 mmol/L (21-33); CHLORIDE 91 mmol/L (98-107); GFR AFRICAN-AMERICAN > 60; GLUCOSE,RANDOM 122 mg/dL (70-110); SODIUM 133 mmol/L (132-148)
[2017-01-18 21:57] LABS: POTASSIUM 2.8 mmol/L (3.6-5.0)
[2017-01-18] MEDS ORDERED: Magnesium Sulfate 2 GM in Sodium Chloride 0.9% 100 ML IVPB ONE (22:07)
[2017-01-18] MEDS ORDERED: Potassium Chloride 40 mEq/30 ml LIQ UD PO STA (22:08)
--- NOTE | 2017-01-18 22:41 | CT ---
EXAM: CT Head Without Intravenous Contrast CLINICAL HISTORY: 66 years old, male; Injury or trauma; Fall; Initial encounter; Concussion / head injury; Additional info: R/O ich TECHNIQUE: Axial computed tomography images of the head/brain without intravenous contrast. All CT scans at this facility use one or more dose reduction techniques, viz.: automated exposure control; ma/kV adjustment per patient size (including targeted exams where dose is matched to indication; i.e. head); or iterative reconstruction technique. COMPARISON: CT - HEAD W/O CONTRAST 10/29/2016 11:03:55 AM FINDINGS: Brain: Subdural hemorrhage is identified within the left cerebral hemisphere. This measures a maximum width of 11.2 mm. A 10.6 mm shift is identified (left to right). A smaller right frontal subdural hemorrhage is also identified, measuring 3 mm in greatest dimension. Acute hemorrhage extends along the falx. Area of decreased attenuation within the left frontal lobe, consistent with prior cerebral infarction. Otherwise, age-appropriate periventricular white matter disease. Ventricles: Age-appropriate ventriculomegaly. Bones: No acute displaced fracture. Prior efra hole defect within the left parietal cranium. Prior fracture deformity within the bilateral nasal bones. Sinuses: Unremarkable as visualized. No acute sinusitis. Mastoid air cells: Unremarkable as visualized. No mastoid effusion. IMPRESSION: Acute subdural hemorrhage within the left cerebral hemisphere and right frontal region, with small midline shift, from left to right, as detailed above.
--- NOTE | 2017-01-18 22:43 | ED PDOC ---
Physical Exam Vital Signs Temp Pulse Resp BP Pulse Ox 01/19/17 00:48 86 20 108/76 99 01/18/17 22:48 86 20 136/63 99 01/18/17 20:55 97.5 F L 90 26 H 123/75 97 Finger Stick Blood Glucose: 117 Medical Decision Making ED Course and Treatment: 01/18/17 22:35 Case endorsed to me by Dr. Kumar, pending CT scan and final disposition. 01/18/17 22:43 Reviewed radiology, CT Head shows: Brain: Subdural hemorrhage is identified within the left cerebral hemisphere. This measures a maximum width of 11.2 mm. A 10.6 mm shift is identified (left to right). A smaller right frontal subdural hemorrhage is also identified, measuring 3 mm in greatest dimension. Acute hemorrhage extends along the falx. Area of decreased attenuation within the left frontal lobe, consistent with prior cerebral infarction. Otherwise, age-appropriate periventricular white matter disease. Ventricles: Age-appropriate ventriculomegaly. Bones: No acute displaced fracture. Prior efra hole defect within the left parietal cranium. Prior fracture deformity within the bilateral nasal bones. Sinuses: Unremarkable as visualized. No acute sinusitis. Mastoid air cells: Unremarkable as visualized. No mastoid effusion. IMPRESSION: Acute subdural hemorrhage within the left cerebral hemisphere and right frontal region, with small midline shift, from left to right, as detailed above. Neurosurgeon physician non invasive cardiologist paged. 01/18/17 22:[address] Lindsey, neurosurgeon physician non invasive cardiologist, who states pt can go to ICU. 01/18/17 23:[address] Lyon, placement officer. Pt will be admitted to ICU for subdural hemorrhage under the hospitalist service. - Critical Care Critical Care Minutes: 30 minutes Narrative Critical Care (Text): Management of subdural hemorrhage - Lab Interpretations Lab Results: 01/18/17 21:26 01/18/17 21:26 Lab Results 01/18/17 21:26: PT 10.5, INR 0.97, APTT 29.5 01/18/17 21:26: Magnesium 1.8 01/18/17 21:26: Alcohol, Quantitative 264 H 01/18/17 21:26: Sodium 133, Potassium 2.8 L*, Chloride 91 L, Carbon Dioxide 24, Anion Gap 21 H, BUN 16, Creatinine 0.6, Est GFR ( Amer) > 60, Est GFR ( Non-Af Amer) > 60, Random Glucose 122 H, Calcium 8.5, Total Bilirubin 1.0, AST 99 H, ALT 60 H, Alkaline Phosphatase 89, Total Protein 7.0, Albumin 4.1, Globulin 2.9, Albumin/Globulin Ratio 1.4 01/18/17 21:26: WBC 14.5 H D, RBC 3.27 L, Hgb 9.7 L D, Hct 29.2 L, MCV 89.3, MCH 29.7, MCHC 33.2, RDW 15.2 H, Plt Count 137, MPV 9.8, Gran % 86.0 H, Lymph % (Auto) 6.9 L, Buchanan % (Auto) 7.1 H, Eos % (Auto) 0.0 L, Baso % (Auto) 0.0, Gran # 12.50 H, Lymph # 1.0 L, Buchanan # 1.0 H, Eos # 0.0, Baso # 0.00 I have reviewed the lab results: Yes - RAD Interpretation Radiology Orders: 01/18/17 20:58 HEAD W/O CONTRAST [CT] Stat Gray Tender: Radiologist - Medication Orders Current Medication Orders: Multivitamins/Vitamin C 10 ml/Thiamine HCl 100 mg/ Folic Acid 1 mg/ Sodium Chloride 1,011.2 mls @ 100 mls/hr IV .Q10H7M ONE Stop: 01/19/17 10:47 Lorazepam (Ativan) 1 mg IVP Q2H PRN; Protocol PRN Reason: Symptoms of alcohol withdrawl Pantoprazole Sodium (Protonix Inj) 40 mg IVP DAILY SUMIT Discontinued Medications Magnesium Sulfate 2 gm/ Sodium (Chloride) 104 mls @ 102 mls/hr IVPB ONCE ONE Stop: 01/18/17 23:08 Potassium Chloride (Potassium Chloride 10 Meq/100 Ml) 10 meq in 100 mls @ 100 mls/hr IVPB Q2H SUMIT Stop: 01/19/17 01:14 Last Admin: 01/19/17 01:26 Dose: 100 mls/hr Potassium Chloride (Potassium Chloride Oral Soln) 40 meq PO STAT STA Stop: 01/18/17 22:09 Last Admin: 01/18/17 23:15 Dose: 40 meq Disposition/Present on Arrival - Present on Arrival Any Indicators Present on Arrival: No History of DVT/PE: No History of Uncontrolled Diabetes: No Urinary Catheter: No History of Decub. Ulcer: No History Surgical Site Infection Following: None - Disposition Have Diagnosis and Disposition been Completed?: Yes Diagnosis: Alcohol intoxication, Hypokalemia, Subdural hematoma Disposition: HOSPITALIZED Disposition Time: 23:30 Patient Problems: Current Active Problems Problem Status Onset Alcohol intoxication Acute Hypokalemia Acute Subdural hematoma Acute Condition: UNKNOWN NIHSS Scale ([place]) Time Performed: 22:35 - How Severe is the Stoke Baseline Level of Consciousness: 0=Alert LOC to Questions: 0=Both comments correct LOC to commands: 0=Obeys both correctly Best Gaze: 0=Normal Visual: 0=No visual loss Facial: 0=Normal Motor Arm - Left: 0=No drift Motor Arm - Right: 0=No drift Motor Leg - Left: 0=No drift Motor Leg - Right: 0=No drift Limb Ataxia: 0=Absent Sensory: 0=Normal Best Language: 0=No aphasia Dysarthia: 0=Normal articulation Extinction & Inattention (Neglect): 0=Normal, no object Score: 0 Risk Level: No Stroke Risk rTPA Inclusion/Exclusion - Refusal of Treatment Patient Refused Treatment: No - Inclusion Criteria for Altepase Patient is 18 years or Older: Yes The Clinical Diagnosis of Ischemic Stroke That is Causing a Potentially Disabling Neurological Deficit: No Time of Onset is Well Established to be Less Than 270 Minute Before Treatment Would Begin: No Risk/Benefit Discussed With Patient/Family Member Present: No - Exclusion Criteria for Altepase Uncontrolled Hypertension at Time of Treatment (Systolic BP above 185 or Diastolic BP above 110 mmHg): No History of: Intracranial hemorrhage Active Internal Bleeding: No Known Bleeding Diathesis Including but Not Limited to: Platelets Below 100,000/ mm,PTT Above 40 sec After Heparin Use, Current Use of Oral Anitcoagulant With INR Greater Than 1.7 or PT Greater Than 15 secs: Yes Evidence of an Intracranial Hemorrhage: Yes Evidence of Major Acute Infarct With Signs Greater Than 1/3 MCA Territory: No Suspicion of Subarachnoid Hemorrhage on Pretreatment Evaluation Even if CT Head Negative For Hemorrhage: Yes - Warning to TPA With Conditions Following Conditions Weighed Against Anticipated Benefit: Yes Condition: Increase Risk of Bleed Due to Comorbid Condition
[2017-01-18 23:08] LABS: INR 0.97 (0.93-1.08); PARTIAL THROMBOPLASTIN TIME 29.5 Seconds (23.7-30.8)
[2017-01-19] MEDS ORDERED: Multivitamin (MVI) 10 ML, Thiamine 100 MG, Folic Acid 1 MG in Sodium Chloride 0.9% 1,00... IV ONE ×2 (00:41→16:16)
--- NOTE | 2017-01-19 01:22 | CP.PCM.CON ---
History of Present Illness - History of Present Illness History of Present Illness: Elena Pathak, PGY1, ICU Consult Note for Dr. Lyon: CC: fall x1 HPI: 66M with PMH alcoholism, presents s/p fall, found down by family member on the floor. Family stated that the pt fell due to intoxication. ROS limited bc patient intoxicated, no family member at bedside. Pt drowsy/intoxicated, awakens on command, oriented to self only, ROS thus obtained from previous chart records. Pt denies cp, f/c, n/v, headache, blurry vision, abdominal pain. In ED, NS stable, CT head showed 11.2 mm acute subdural hemorrhage within left cerebral hemishphere and R frontal region, with small 10.6 mm midline shift from L to R. Neurosurgery - Dr. Lindsey, on board, no acute intervention at this time. PMH: alcoholism, gerd, gastritis PSH: cholecystectomy, appendectomy Allergies: NKDA FH: unknown Social hx: Current smoker. Alcoholic. Unknown if other illicit drug use. Lives alone. Review of Systems - Review of Systems Systems not reviewed;Unavailable: Altered Mental Status, Intoxicated Past Patient History - Infectious Disease Hx of Infectious Diseases: None - Tetanus Immunizations Tetanus Immunization: Unknown - Past Medical History & Family History Past Medical History?: Yes - Past Social History Smoking Status: Heavy Smoker > 10 Cigarettes Daily - CARDIAC Hx Cardiac Disorders: Yes Hx Hypertension: Yes - PULMONARY Hx Respiratory Disorders: Yes Hx Chronic Obstructive Pulmonary Disease (COPD): Yes - NEUROLOGICAL Hx Neurological Disorder: Yes HX Cerebrovascular Accident: Yes - HEENT Hx HEENT Problems: Yes (nasal deformity boxing injury) - RENAL Hx Chronic Kidney Disease: No - ENDOCRINE/METABOLIC Hx Endocrine Disorders: No - HEMATOLOGICAL/ONCOLOGICAL Hx Blood Disorders: No Hx Cancer: No - INTEGUMENTARY Hx Dermatological Problems: Yes Other/Comment: black, scrape andreddened, reddened buttocks, and multiple red wounds to sacrum small amt bleeding noted, tip of r great toe small dry wound surrounded by dry skin, poor hygeine - MUSCULOSKELETAL/RHEUMATOLOGICAL Hx Musculoskeletal Disorders: Yes Hx Falls: Yes Hx Fractures: Yes Hx Rhabdomyolysis: Yes Hx Unsteady Gait: Yes Other/Comment: left hip left arm left leg fx - GASTROINTESTINAL Hx Gastrointestinal Disorders: Yes (gastritis) Hx Gastroesophageal Reflux: Yes - GENITOURINARY/GYNECOLOGICAL Hx Genitourinary Disorders: No Hx Sexually Transmitted Disorders: No - PSYCHIATRIC Hx Psychophysiologic Disorder: Yes Hx Anxiety: Yes Hx Bipolar Disorder: No Hx Depression: Yes Hx Panic Symptoms: Yes Hx Psychosis: Yes Hx Schizophrenia: No Hx Substance Use: No Other/Comment: 1.5 liters vodka daily, suicide attempt 40 yrs ago - SURGICAL HISTORY Hx Appendectomy: Yes Hx Cholecystectomy: Yes Hx Orthopedic Surgery: Yes Other/Comment: left femur metal implant, fell off roof of house, sx to left elbow, left hip, left arm - ANESTHESIA Hx Anesthesia: Yes Hx Anesthesia Reactions: No Hx Malignant Hyperthermia: No Meds Allergies/Adverse Reactions: Allergies Allergy/AdvReac Type Severity Reaction Status Date / Time No Known Allergies Allergy Verified 01/18/17 20:42 - Medications Medications: Current Medications Multivitamins/Vitamin C 10 ml/Thiamine HCl 100 mg/ Folic Acid 1 mg/ Sodium Chloride 1,011.2 mls @ 100 mls/hr IV .Q10H7M ONE Stop: 01/19/17 10:47 Lorazepam (Ativan) 1 mg IVP Q2H PRN; Protocol PRN Reason: Symptoms of alcohol withdrawl Pantoprazole Sodium (Protonix Inj) 40 mg IVP DAILY SUMIT Physical Exam - Constitutional Appears: Older Than Stated Age - Head Exam Head Exam: ATRAUMATIC, NORMOCEPHALIC - Eye Exam Eye Exam: PERRL. absent: Conjunctival injection, Scleral icterus Pupil Exam: PERRL - ENT Exam ENT Exam: Mucous Membranes Moist - Neck Exam Neck exam: Negative for: Lymphadenopathy, Thyromegaly - Respiratory Exam Respiratory Exam: Clear to Auscultation Bilateral. absent: Accessory Muscle Use , Rales, Rhonchi, Wheezes, Respiratory Distress - Cardiovascular Exam Cardiovascular Exam: RRR, +S1, +S2. absent: Systolic Murmur - GI/Abdominal Exam GI & Abdominal Exam: Normal Bowel Sounds, Soft. absent: Guarding, Rebound, Tenderness - Extremities Exam Extremities exam: Positive for: pedal pulses present. Negative for: calf tenderness, pedal edema - Neurological Exam Additional comments: oriented to self only. drowsy/intoxicated - Skin Skin Exam: Dry, Warm Results - Vital Signs Recent Vital Signs: Last Vital Signs Temp 97.5 F L 01/18/17 20:55 Pulse 86 01/19/17 00:48 Resp 20 01/19/17 00:48 BP 108/76 01/19/17 00:48 Pulse Ox 99 01/19/17 00:48 - Labs Result Diagrams: 01/18/17 21:26 01/18/17 21:26 Assessment & Plan - Assessment and Plan (Free Text) Assessment: 66 M with PMH alcoholism, presents s/p fall, found to have a subdural hemorrhage. Plan: Subdural hemorrhage 2/2 likely fall: - CT head shows acute 11.2 mm subdural hemorrhage within left cerebral hemishphere and right frontal region. small midline shift 10.6 mm from left to right. - Neurocheck q1h - Neurosurgery - dr lindsey on board - no acute intervention now - Neurology c/w, f/u recs - Avoid heaprin/any AC - fall, seizure precautions - HOB>30 Fall 2/2 likely alcohol intoxication: - ETOH level 264, CIWA protocol, Ativan prn - Seizure/fall precautions GERD: - IV Protonix Please obtain home meds from pharmacy in AM. Discussed with Dr Sonali Pathak, PGY1 - Date & Time Date: 01/19/17 Time: 01:37
[2017-01-19 05:16] VITALS: BMI 23.6
[2017-01-19 08:23] LABS: HEMATOCRIT 28.4 % (42.0-52.0); MEAN CELL VOLUME 89.3 fl (80.0-105.0); MEAN CORPUSCULAR HEMOGLOBIN 29.6 pg (25.0-35.0); MEAN CORPUSCULAR HGB CONC 33.1 g/dl (31.0-37.0); MEAN PLATELET VOLUME 9.8 fl (7.0-11.0); RED CELL DISTRIBUTION WIDTH 15.1 % (11.5-14.5); WHITE BLOOD COUNT 11.3 10^3/ul (4.5-11.0)
--- NOTE | 2017-01-19 08:34 | CT ---
PROCEDURE: CT HEAD WITHOUT CONTRAST. HISTORY: subdural hematoma COMPARISON: Head CT 01/18/2017. TECHNIQUE: Axial computed tomography images were obtained through the head/brain without intravenous contrast. Radiation dose: Total exam DLP = 790 mGy-cm. This CT exam was performed using one or more of the following dose reduction techniques: Automated exposure control, adjustment of the mA and/or kV according to patient size, and/or use of iterative reconstruction technique. FINDINGS: HEMORRHAGE: Multifocal subdural hematomas are stable at the left cerebral convexity as well as both sides of the falx. Posterior component of the left convexity subdural extends to the posterior margin of the upper left tentorium. The minimal right epidural or subdural hematoma is appreciate the right temporal region once again. The dominant hemorrhage at the left cerebral convexity measures approximately a mm greatest thickness with 8 mm rightward midline shift evident. Mass effect effaces the through the majority of left cerebral sulci partially effacing segments of the left lateral ventricle once again. BRAIN: Diffuse cerebral atrophy and chronic microangiopathy are again identified as well as it as well as chronic right caudate head lacune. VENTRICLES: Unremarkable. No hydrocephalus. CALVARIUM: Left frontal efra hole again identified. Overall, calvarium appears stable. PARANASAL SINUSES: Unremarkable as visualized. No significant inflammatory changes. MASTOID AIR CELLS: Unremarkable as visualized. No inflammatory changes. OTHER FINDINGS: None. IMPRESSION: Stable subdural hematoma is identified at the left cerebral convexity diffusely, bilateral prior fall seen in posterior left tentorial distributions as discussed above. A small subdural or epidural at the right temporal extra-axial spaces stable as well. Sub cm rightward midline shift now evident. No definite new intracranial hemorrhage appreciable. Continued clinical and CT follow-up are advised. Chronic lacune right caudate head again evident as well as age-related neuro degenerative changes.
[2017-01-19 08:35] LABS: ALB/GLOB RATIO 1.3 (1.1-1.8); ALKALINE PHOSPHATASE 87 U/L (38-126); ALT/SGPT 50 U/L (7-56); AST/SGOT 81 U/L (17-59); BILIRUBIN,TOTAL 1.2 mg/dL (0.2-1.3); BLOOD UREA NITROGEN 12 mg/dL (7-21); CALCIUM 8.2 mg/dL (8.4-10.5); CARBON DIOXIDE 23 mmol/L (21-33); CHLORIDE 97 mmol/L (98-107); CHOLESTEROL 193 mg/dL (130-200); GFR AFRICAN-AMERICAN > 60; GLUCOSE,RANDOM 80 mg/dL (70-110); PHOSPHOROUS 1.7 mg/dL (2.5-4.5); POTASSIUM 3.7 mmol/L (3.6-5.0); SODIUM 131 mmol/L (132-148); TOTAL PROTEIN 6.9 g/dL (5.8-8.3)
--- NOTE | 2017-01-19 09:44 | PN ---
DATE: 01/19/2017 ESCROW SECRETARY NOTE SUBJECTIVE: The patient is resting in bed, awake and alert, seems to be moving all extremities. The patient does speak Malay, but his primary language is [place] Citizen, but he does understand when we speak to him. At this time, no complaints of shortness of breath, cough, wheezing or chest congestion. The patient has no complaints of headaches or blurred vision. He is scheduled for repeat CT of his head. Note that the patient does have a long history of ETOH abuse and presented to the hospital intoxicated. At this time, he does have some slight tremors of the hand, felt that the early signs of delirium tremors. The patient at this time is getting a banana bag. PHYSICAL EXAMINATION: VITAL SIGNS: Note that his temperature is 97.5, his pulse is 90, respirations are 20 and BP is 123/75, O2 saturation on room air is 97%. SKIN: Warm and dry. HEENT: Head atraumatic and normocephalic. Eyes are reactive to light. Ear, nose and throat seem to be within normal limits. NECK: Supple. No JVD. No thyroid enlargement. No lymph nodes. HEART: Regular rate and rhythm. Normal S1 and S2. LUNGS: Reveal good breath sounds bilaterally. ABDOMEN: Soft, but decreased bowel sounds. GENITALIA: Deferred. RECTAL: Deferred. MUSCULOSKELETAL: No joint deformities. EXTREMITIES: Reveal no significant edema. NEUROLOGICAL: The patient is moving all extremities at this time and is awake and speaking appropriately. LABORATORY DATA: As far as laboratories, his white count is 14.5, hemoglobin is 9.7, hematocrit 29.2 with platelets of 137,000. Sodium is 133, potassium 2.8, chloride 91, CO2 of 24 with a BUN of 16, creatinine is 0.6 and a glucose of 122. CT of the head reveals acute subdural hemorrhage within the left cerebral hemisphere and right frontal region. There is a small midline shift from the left to the right. IMPRESSION: This patient has subdural hemorrhage with midline shift. He has history of ETOH abuse, presented to the hospital intoxicated. The patient at this time seems to be developing delirium tremors. It is noted that he does have anemia as well as hypokalemia. PLAN: We will repeat the CAT scan of the head as per Neurology and Neurosurgery has been consulted as well. The patient will be given potassium to correct his level and values will be followed. He is getting IV fluids, a banana bag, and we will start Ativan for the DTs. The patient will continue with Protonix and we will follow closely and treat aggressively along with the other consultants and the primary care doctor. Chilango Siu MD
--- NOTE | 2017-01-19 14:20 | CON ---
DATE: HISTORY OF PRESENT ILLNESS: Mr. Sharma is a 66-year-old male known to the emergency room with a history of alcoholism. He was found last night status post fall. He was intoxicated. He was brought to the emergency room, at the time, in the emergency room he was awake to command, he was oriented to self. He denied headache, nausea, vomiting, abdominal pain, numbness, weakness or paresthesias. He had a CT scan showing a subdural hematoma extensively left-sided, fairly thin, circumferentially around the entire hemisphere with small amount of shift. I reviewed his prior CT from October there was no evidence of subdural there, but he had massive atrophy particularly on the left side and very large subarachnoid spaces. Repeat CT this morning was done which I reviewed. It does not show any significant change from last night study. In addition, there is a right-sided lacunar infarct in the head of the caudate. PHYSICAL EXAMINATION: GENERAL: At this point, he is awake and alert. He is oriented to self. He says he only speaks Citizen [place]. NEUROLOGIC: He does follow a simple commands. He is very tremulous. He has no drift. He has good strength in all limbs. His pupils are equal. His EOM's are full. His tongue is midline and protrudes without deviation, but he has fasciculations on his tongue. IMPRESSION AND PLAN: At this point, he is tolerating the subdural well, most likely because of the significant atrophy. The problem with removing this is that is essentially completely around the left hemisphere and any attempt to remove this will only remove a very small portion and will not affect the bulk of this subdural. Therefore, unless there is a clinical change or a gross increase in the size of the subdural, I would prefer to try to ride him out conservatively. The other problem is that he is apparently going into alcohol withdrawal and this needs to be addressed before becomes a major problem, the concern, however, is that he might become over sedated and we loose our handle on his neurologic exam. At this point, we will repeat the CAT scan in the morning and make a decision. If there is either a change in his clinical condition or CT. Angelo Lindsey MD [facility] # [id number]
[2017-01-19] MEDS ORDERED: [UNRECOGNIZED DRUG - OTHER] IV SCH (15:00)
[2017-01-19] MEDS ORDERED: THIAMINE IV SCH (15:00)
[2017-01-19] MEDS ORDERED: FOLIC ACID IV SCH (15:00)
[2017-01-19] MEDS ORDERED: MULTIVITAMIN IV SCH (15:00)
--- NOTE | 2017-01-19 16:49 | CP.PCM.CON ---
History of Present Illness - History of Present Illness History of Present Illness: Mr. Sharma is a 66-year-old man with a past medical history of alcoholism, who had a fall with head injury and subsequent subdural hematoma formation of the left frontal, temporal and parietal region also involving the midline between the tentorium. He is currently confused and has generalized weakness. He is awake, and follows simple commands intermittently. Review of Systems - Review of Systems All systems: reviewed and no additional remarkable complaints except Past Patient History - Infectious Disease Hx of Infectious Diseases: None - Tetanus Immunizations Tetanus Immunization: Unknown - Past Medical History & Family History Past Medical History?: Yes - Past Social History Smoking Status: Heavy Smoker > 10 Cigarettes Daily - CARDIAC Hx Cardiac Disorders: Yes Hx Hypertension: Yes - PULMONARY Hx Respiratory Disorders: Yes Hx Chronic Obstructive Pulmonary Disease (COPD): Yes - NEUROLOGICAL Hx Neurological Disorder: Yes HX Cerebrovascular Accident: Yes - HEENT Hx HEENT Problems: Yes (nasal deformity boxing injury) - RENAL Hx Chronic Kidney Disease: No - ENDOCRINE/METABOLIC Hx Endocrine Disorders: No - HEMATOLOGICAL/ONCOLOGICAL Hx Blood Disorders: No Hx Cancer: No - INTEGUMENTARY Hx Dermatological Problems: Yes Other/Comment: black, scrape andreddened, reddened buttocks, and multiple red wounds to sacrum small amt bleeding noted, tip of r great toe small dry wound surrounded by dry skin, poor hygeine - MUSCULOSKELETAL/RHEUMATOLOGICAL Hx Falls: Yes - GASTROINTESTINAL Hx Gastrointestinal Disorders: Yes (gastritis) Hx Gastroesophageal Reflux: Yes - GENITOURINARY/GYNECOLOGICAL Hx Genitourinary Disorders: No Hx Sexually Transmitted Disorders: No - PSYCHIATRIC Hx Psychophysiologic Disorder: Yes Hx Anxiety: Yes Hx Bipolar Disorder: No Hx Depression: Yes Hx Panic Symptoms: Yes Hx Psychosis: Yes Hx Schizophrenia: No Hx Substance Use: No Other/Comment: 1.5 liters vodka daily, suicide attempt 40 yrs ago - SURGICAL HISTORY Hx Appendectomy: Yes Hx Cholecystectomy: Yes Hx Orthopedic Surgery: Yes Other/Comment: left femur metal implant, fell off roof of house, sx to left elbow, left hip, left arm - ANESTHESIA Hx Anesthesia: Yes Hx Anesthesia Reactions: No Hx Malignant Hyperthermia: No Meds Allergies/Adverse Reactions: Allergies Allergy/AdvReac Type Severity Reaction Status Date / Time No Known Allergies Allergy Verified 01/18/17 20:42 - Medications Medications: Current Medications Chlordiazepoxide (Librium) 5 mg PO Q8 [facility] PRN Reason: Protocol Last Admin: 01/19/17 14:43 Dose: 5 mg Gabapentin (Neurontin) 300 mg PO TID [facility] PRN Reason: Protocol Multivitamins/Vitamin C 10 ml/Thiamine HCl 100 mg/ Folic Acid 1 mg/ Sodium Chloride 1,011.2 mls @ 100 mls/hr IV .Q10H7M ONE Stop: 01/20/17 02:22 Lorazepam (Ativan) 1 mg IVP Q2H PRN; Protocol PRN Reason: Symptoms of alcohol withdrawl Last Admin: 01/19/17 16:16 Dose: 1 mg Pantoprazole Sodium (Protonix Inj) 40 mg IVP DAILY [facility] Last Admin: 01/19/17 11:09 Dose: 40 mg Physical Exam - Constitutional Appears: Well - Head Exam Head Exam: ATRAUMATIC, NORMAL INSPECTION, NORMOCEPHALIC - Eye Exam Eye Exam: EOMI, Normal appearance, PERRL - ENT Exam ENT Exam: Mucous Membranes Moist, Normal Exam Additional comments: Fractured nose - Neck Exam Neck exam: Positive for: Normal Inspection - Respiratory Exam Respiratory Exam: Clear to Auscultation Bilateral, NORMAL BREATHING PATTERN - Cardiovascular Exam Cardiovascular Exam: REGULAR RHYTHM, +S1, +S2 - GI/Abdominal Exam GI & Abdominal Exam: Normal Bowel Sounds, Soft. absent: Tenderness - Rectal Exam Rectal Exam: Deferred - Extremities Exam Extremities exam: Positive for: normal inspection - Back Exam Back exam: NORMAL INSPECTION - Neurological Exam Neurological exam: Altered, CN II-XII Intact Additional comments: RLE appears weaker than the left, but difficult to determine since he is not following commands appropriately. He lifted both legs but did not maintain the right leg longer than 5 seconds. 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 He is awake and alert, but confused and agitated. Appears to be withdrawing. He denied headache and asked to go home. GCS was 14. Results - Vital Signs Recent Vital Signs: Last Vital Signs Temp 98 F 01/19/17 03:44 Pulse 95 H 01/19/17 15:00 Resp 19 01/19/17 12:07 BP 173/85 H 01/19/17 12:07 Pulse Ox 96 01/19/17 12:07 - Labs Result Diagrams: 01/19/17 08:10 01/19/17 08:10 Labs: Laboratory Results - last 24 hr 01/19/17 01/19/17 08:10 08:10 WBC 11.3 H D RBC 3.18 L Hgb 9.4 L Hct 28.4 L MCV 89.3 MCH 29.6 MCHC 33.1 RDW 15.1 H Plt Count 129 MPV 9.8 Sodium 131 L Potassium 3.7 Chloride 97 L Carbon Dioxide 23 Anion Gap 15 BUN 12 Creatinine 0.5 Est GFR ( Amer) > 60 Est GFR (Non-Af Amer) > 60 Random Glucose 80 Calcium 8.2 L Phosphorus 1.7 L Total Bilirubin 1.2 AST 81 H ALT 50 Alkaline Phosphatase 87 Total Protein 6.9 Albumin 3.9 Globulin 3.0 Albumin/Globulin Ratio 1.3 Triglycerides 65 Cholesterol 193 LDL Cholesterol Direct 71 HDL Cholesterol 109 H - Imaging and Cardiology CT scan - head Status: Image reviewed by me, Report reviewed by me (About 5.5 mm midline shift with evidence of ischemic changes in the left temporal and parietal lobe. SDH is about 1.8 cm thickness.) Assessment & Plan (1) Subdural hematoma Assessment and Plan: There is significant blood around the left temporal lobe and apparent edema in that region. This finding could promote seizures. I will start Keppra 500 mg Q12 IV and Neurontin 300 mg TID (can help with withdrawal symptoms as well). Monitor neurological exam every hour and follow GCS. Repeat CT head [address] for evaluation of midline shift. Keep head of bed elevated. PT/ OT eval and treat. Avoid antiplatelet agents or anticoagulants until further notice. DVT Px with SCDs. [facility] protocol. Status: Acute
[2017-01-19] MEDS ORDERED: levETIRAcetam 500 MG in Sodium Chloride 0.9% 100 ML IV SCH (22:00)
[2017-01-19] MEDS: levETIRAcetam 500mg IVPB 500 MG/100 ML BAG IVPB SCH (22:02)
--- NOTE | 2017-01-19 22:03 | CT ---
EXAM: CT Head Without Intravenous Contrast CLINICAL HISTORY: 66 years old, male; Condition or disease; Other: Sdh with midline shift TECHNIQUE: Axial computed tomography images of the head/brain without intravenous contrast. All CT scans at this facility use one or more dose reduction techniques, viz.: automated exposure control; ma/kV adjustment per patient size (including targeted exams where dose is matched to indication; i.e. head); or iterative reconstruction technique. COMPARISON: CT - HEAD W/O CONTRAST 01/19/2017 8:00:50 AM FINDINGS: Brain: Again identified is a subdural hematoma within the left cerebral hemisphere measuring 9.3 mm in greatest transverse width. The hemorrhage extends along the falx, unchanged from prior. A small subdural component is also detected within the right temporal lobe, measuring 6.4 mm. Decreased rightward midline shift now measuring only 7.3 mm. Decreased attenuation within the left frontal lobe, consistent with prior cerebral infarction. Otherwise, age-appropriate periventricular white matter disease. No edema. Ventricles: Age-appropriate ventriculomegaly. Bones: No acute displaced fracture. Prior efra hole defect within the left parietal bone prior fracture deformity within the bilateral nasal bones. Sinuses: Unremarkable as visualized. No acute sinusitis. Mastoid air cells: Unremarkable as visualized. No mastoid effusion. IMPRESSION: Stable CT examination of the brain demonstrating bilateral subdural hematomas, as detailed above. Decreased rightward midline shift is now noted.
[2017-01-20] MEDS ORDERED: Folic Acid 1 MG, Thiamine 100 MG, Multivitamin (MVI) 10 ML in Dextrose 5% In Water 1,00... IV SCH (06:15)
[2017-01-20 07:11] LABS: BASO # 0.01 K/mm3 (0.0-2.0); BASO % 0.2 % (0.0-3.0); EOS % 0.2 % (1.5-5.0); GRAN # 4.94 (1.4-6.5); GRAN % 75.3 % (50.0-68.0); HEMATOCRIT 30.3 % (42.0-52.0); LYMPH % 15.4 % (22.0-35.0); MEAN CELL VOLUME 89.6 fl (80.0-105.0); MEAN CORPUSCULAR HEMOGLOBIN 29.3 pg (25.0-35.0); MEAN CORPUSCULAR HGB CONC 32.7 g/dl (31.0-37.0); MEAN PLATELET VOLUME 10.7 fl (7.0-11.0); MONO # 0.6 (0.1-0.6); MONO % 8.9 % (1.0-6.0); RED CELL DISTRIBUTION WIDTH 14.9 % (11.5-14.5); WHITE BLOOD COUNT 6.6 10^3/ul (4.5-11.0)
--- NOTE | 2017-01-20 07:20 | CARD ---
APPROVED REPORT EKG Measurement Heart [id number] <Conclusion> Normal sinus rhythm Minimal voltage criteria for LVH, may be normal variant Septal infarct, age undetermined Abnormal ECG
[2017-01-20 08:20] LABS: ALB/GLOB RATIO 1.3 (1.1-1.8); ALKALINE PHOSPHATASE 91 U/L (38-126); ALT/SGPT 51 U/L (7-56); AST/SGOT 87 U/L (17-59); BLOOD UREA NITROGEN 8 mg/dL (7-21); CALCIUM 8.5 mg/dL (8.4-10.5); CARBON DIOXIDE 24 mmol/L (21-33); CHLORIDE 89 mmol/L (98-107); GFR AFRICAN-AMERICAN > 60; GLUCOSE,RANDOM 70 mg/dL (70-110); MAGNESIUM 1.6 mg/dL (1.7-2.2); POTASSIUM 3.3 mmol/L (3.6-5.0); SODIUM 127 mmol/L (132-148); TOTAL PROTEIN 7.4 g/dL (5.8-8.3)
[2017-01-20] MEDS ORDERED: Sodium Phosphate 15 MMOLE in Sodium Chloride 0.9% 250 ML IVPB ONE (08:35)
[2017-01-20] MEDS ORDERED: Magnesium Sulfate 2 GM in Sodium Chloride 0.9% 100 ML IVPB ONE (08:35)
--- NOTE | 2017-01-20 09:19 | CP.PCM.PN ---
Subjective - Date & Time of Evaluation Date of Evaluation: 01/20/17 Time of Evaluation: 09:18 - Subjective Subjective: pt remains waake and alert clearly in DT's moves all to commands very trmulous CT shows SDH on Left stable less shift now visible small R sdh Suggest watch clinically if change in MS get stat CT and recall Objective - Vital Signs/Intake and Output Vital Signs (last 24 hours): Temp Pulse Resp BP Pulse Ox 98.8 F 89 31 H 145/85 96 01/20/17 06:00 01/20/17 07:00 01/20/17 07:00 01/20/17 07:00 01/20/17 07:00 Intake and Output: 01/20/17 01/20/17 06:59 18:59 Intake Total 600 Balance 600 - Medications Medications: Current Medications Chlordiazepoxide (Librium) 25 mg PO Q8 PRN; Protocol PRN Reason: Symptoms of alcohol withdrawl Last Admin: 01/19/17 17:42 Dose: 25 mg Gabapentin (Neurontin) 300 mg PO TID [facility] PRN Reason: Protocol Last Admin: 01/19/17 17:43 Dose: 300 mg Levetiracetam (Keppra 500mg Ivpb) 500 mg in 100 mls @ 400 mls/hr IVPB Q12 [facility] Last Admin: 01/19/17 22:02 Dose: 400 mls/hr Folic Acid 1 mg/ Thiamine HCl 100 mg/ Multivitamins/Vitamin C 10 ml/ Dextrose 1 ,011.2 mls @ 100 mls/hr IV .Q10H7M [facility] Last Admin: 01/20/17 07:25 Dose: 100 mls/hr Magnesium Sulfate 2 gm/ Sodium (Chloride) 104 mls @ 102 mls/hr IVPB ONCE ONE Stop: 01/20/17 09:36 Potassium Chloride (Potassium Chloride 20 Meq/100 Ml) 20 meq in 100 mls @ 50 mls/hr IVPB Q2H [facility] Stop: 01/20/17 12:44 Sodium Phosphate 15 mmole/ (Sodium Chloride) 255 mls @ 42.5 mls/hr IVPB ONCE ONE Stop: 01/20/17 14:34 Lorazepam (Ativan) 1 mg IVP Q2H PRN; Protocol PRN Reason: Symptoms of alcohol withdrawl Last Admin: 01/20/17 05:32 Dose: 1 mg Pantoprazole Sodium (Protonix Inj) 40 mg IVP DAILY [facility] Last Admin: 01/19/17 11:09 Dose: 40 mg - Labs Labs: 01/20/17 06:35 01/20/17 06:35 PT 10.5 Seconds (9.9-11.8) 01/18/17 21:26 INR 0.97 (0.93-1.08) 01/18/17 21:26 APTT 29.5 Seconds (23.7-30.8) 01/18/17 21:26
[2017-01-20] MEDS: levETIRAcetam 500mg IVPB 500 MG/100 ML BAG IVPB SCH ×2 (09:42→21:30)
[2017-01-20 09:45] LABS: IRON 53 ug/dL (45-180)
[2017-01-20] MEDS: Sodium Chloride 0.9% 1,000 ML IV SCH (09:49)
--- NOTE | 2017-01-20 10:23 | CP.CCUPN ---
<Tammy Munoz - Last Filed: 01/20/17 10:29> CCU Subjective - Physician Review Events Since Last Encounter (Free Text): 01/20/17 10:19 Agitation overnight as per nursing. Subjective (Free Text): 01/20/17 10:19 Critical care progress note for Dr. Viki Munoz, PGY-1 Pt S & E at bedside. 1:1 sitter at bedside- reports agitation overnight, foul smelling stool. Pt sedated, unarousable to verbal or tactile stimuli- episodes of agitation/DTs overnight. Critical Care Time Spent (in minutes): 40 CCU Objective - Vital Signs / Intake & Output Vital Signs (Last 4 hours): Vital Signs Pulse Resp BP Pulse Ox 01/20/17 07:00 89 31 H 145/85 96 Intake and Output (Last 8hrs): Intake & Output 01/19/17 01/20/17 01/20/17 22:59 06:59 14:59 Intake Total 1380 600 Balance 1380 600 Intake: IV 1200 600 Left External Jugular 1200 600 Oral 180 Other: Voiding Method Incontinent Incontinent # Bowel Movements 1 3 - Physical Exam Head: Positive for: Normocephalic. Negative for: Atraumatic (nasal bone displaced- well healed) Pupils: Negative for: PERRL (unable to assess) Extroacular Muscles: Negative for: EOMI (unable to assess) Conjunctiva: Negative for: Normal (unable to assess) Ears: Positive for: Normal Mouth: Positive for: Dry Nose (External): Negative for: Atraumatic (nasal bone displaced) Respiratory/Chest: Positive for: Clear to Auscultation. Negative for: Good Air Exchange (shallow breathing pattern), Respiratory Distress, Accessory Muscle Use Cardiovascular: Positive for: Regular Rate and Rhythm, Normal S1, S2. Negative for: Murmurs Abdomen: Positive for: Normal Bowel Sounds. Negative for: Tenderness, Distention, Peritoneal Signs Upper Extremity: Positive for: Normal Inspection. Negative for: Cyanosis, Edema Lower Extremity: Positive for: Normal Inspection. Negative for: Edema Neurological: Negative for: GCS=15 (unable to assess), CN II-XII Intact (unable to assess), Speech Normal (unable to assess) Skin: Positive for: Warm, Dry, Normal Color. Negative for: Rashes Psychiatric: Negative for: Alert, Oriented x 3, Normal Insight, Normal Concentration Other physical findings (Free Text): sedated - Medications Active Medications: Active Medications Generic Name Dose Route Start Last Admin Trade Name Freq PRN Reason Stop Dose Admin Chlordiazepoxide 50 mg 01/20/17 14:00 Librium PO Q8 SUMIT Protocol Folic Acid 1 mg 01/20/17 10:00 Folic Acid PO DAILY SUMIT Gabapentin 300 mg 01/19/17 18:00 01/20/17 09:43 Neurontin PO 300 mg TID SUMIT Administration Protocol Levetiracetam 500 mg in 100 mls @ 400 mls/hr 01/19/17 22:00 01/20/17 09:42 Keppra 500mg Ivpb IVPB 400 mls/hr Q12 [facility] Administration Potassium Chloride 20 meq in 100 mls @ 50 mls/hr 01/20/17 08:45 01/20/17 09: 47 Potassium Chloride 20 Meq/100 Ml IVPB 01/20/17 12:44 50 mls/hr Q2H SUMIT Administration Sodium Phosphate 15 mmole/ 255 mls @ 42.5 mls/hr 01/20/17 08:35 Sodium Chloride IVPB 01/20/17 14:34 ONCE ONE Sodium Chloride 1,000 mls @ 100 mls/hr 01/20/17 09:30 01/20/17 09:49 Sodium Chloride 0.9% IV 100 mls/hr .Q10H [facility]IT Administration Lorazepam 1 mg 01/19/17 00:42 01/20/17 09:42 Ativan IVP 1 mg Q2H PRN Administration Symptoms of alcohol withdrawl Protocol Multivitamins/Minerals 1 tab 01/21/17 08:00 Therapeutic-M Tab PO 0800 [facility] Pantoprazole Sodium 40 mg 01/19/17 10:00 01/20/17 09:44 Protonix Inj IVP 40 mg DAILY SUMIT Administration Thiamine HCl 100 mg 01/20/17 10:00 Vitamin B1 Tab PO DAILY SUMIT - Patient Studies Lab Studies: Lab Studies 01/20/17 01/20/17 01/20/17 Range/Units 08:36 07:30 06:35 WBC (4.5-11.0) 10^3/ul RBC (3.5-6.1) 10^6/uL Hgb (14.0-18.0) g/dL Hct (42.0-52.0) % MCV (80.0-105.0) fl MCH (25.0-35.0) pg MCHC (31.0-37.0) g/dl RDW (11.5-14.5) % Plt Count (120.0-450.0) 10^3/uL MPV (7.0-11.0) fl Gran % (50.0-68.0) % Lymph % (Auto) (22.0-35.0) % Person % (Auto) (1.0-6.0) % Eos % (Auto) (1.5-5.0) % Baso % (Auto) (0.0-3.0) % Gran # (1.4-6.5) Lymph # (1.2-3.4) Person # (0.1-0.6) Eos # (0.0-0.7) Baso # (0.0-2.0) K/mm3 Sodium 127 L (132-148) mmol/L Potassium 3.3 L (3.6-5.0) mmol/L Chloride 89 L (98-107) mmol/L Carbon Dioxide 24 (21-33) mmol/L Anion Gap 17 (10-20) BUN 8 (7-21) mg/dL Creatinine 0.5 (0.5-1.4) mg/dL Est GFR ( Amer) > 60 Est GFR (Non-Af Amer) > 60 Random Glucose 70 (70-110) mg/dL Calcium 8.5 (8.4-10.5) mg/dL Phosphorus 2.0 L (2.5-4.5) mg/dL Magnesium 1.6 L (1.7-2.2) mg/dL Iron 53 (45-180) ug/dL TIBC 294 (261-462) ug/dL % Saturation 18 L (20-55) % Total Bilirubin 2.0 H (0.2-1.3) mg/dL AST 87 H (17-59) U/L ALT 51 (7-56) U/L Alkaline Phosphatase 91 (38-126) U/L Total Protein 7.4 (5.8-8.3) g/dL Albumin 4.2 (3.0-4.8) g/dL Globulin 3.3 gm/dL Albumin/Globulin Ratio 1.3 (1.1-1.8) Stool Occult Blood Positive H (NEGATIVE) 01/20/17 Range/Units 06:35 WBC 6.6 D (4.5-11.0) 10^3/ul RBC 3.38 L (3.5-6.1) 10^6/uL Hgb 9.9 L (14.0-18.0) g/dL Hct 30.3 L (42.0-52.0) % MCV 89.6 (80.0-105.0) fl MCH 29.3 (25.0-35.0) pg MCHC 32.7 (31.0-37.0) g/dl RDW 14.9 H (11.5-14.5) % Plt Count 151 (120.0-450.0) 10^3/uL MPV 10.7 (7.0-11.0) fl Gran % 75.3 H (50.0-68.0) % Lymph % (Auto) 15.4 L (22.0-35.0) % Person % (Auto) 8.9 H (1.0-6.0) % Eos % (Auto) 0.2 L (1.5-5.0) % Baso % (Auto) 0.2 (0.0-3.0) % Gran # 4.94 (1.4-6.5) Lymph # 1.0 L (1.2-3.4) Person # 0.6 (0.1-0.6) Eos # 0.0 (0.0-0.7) Baso # 0.01 (0.0-2.0) K/mm3 Sodium (132-148) mmol/L Potassium (3.6-5.0) mmol/L Chloride (98-107) mmol/L Carbon Dioxide (21-33) mmol/L Anion Gap (10-20) BUN (7-21) mg/dL Creatinine (0.5-1.4) mg/dL Est GFR ( Amer) Est GFR (Non-Af Amer) Random Glucose (70-110) mg/dL Calcium (8.4-10.5) mg/dL Phosphorus (2.5-4.5) mg/dL Magnesium (1.7-2.2) mg/dL Iron (45-180) ug/dL TIBC (261-462) ug/dL % Saturation (20-55) % Total Bilirubin (0.2-1.3) mg/dL AST (17-59) U/L ALT (7-56) U/L Alkaline Phosphatase (38-126) U/L Total Protein (5.8-8.3) g/dL Albumin (3.0-4.8) g/dL Globulin gm/dL Albumin/Globulin Ratio (1.1-1.8) Stool Occult Blood (NEGATIVE) Laboratory Results - last 24 hr 01/20/17 01/20/17 01/20/17 06:35 06:35 07:30 WBC 6.6 D RBC 3.38 L Hgb 9.9 L Hct 30.3 L MCV 89.6 MCH 29.3 MCHC 32.7 RDW 14.9 H Plt Count 151 MPV 10.7 Gran % 75.3 H Lymph % (Auto) 15.4 L Person % (Auto) 8.9 H Eos % (Auto) 0.2 L Baso % (Auto) 0.2 Gran # 4.94 Lymph # 1.0 L Person # 0.6 Eos # 0.0 Baso # 0.01 Sodium 127 L Potassium 3.3 L Chloride 89 L Carbon Dioxide 24 Anion Gap 17 BUN 8 Creatinine 0.5 Est GFR ( Amer) > 60 Est GFR (Non-Af Amer) > 60 Random Glucose 70 Calcium 8.5 Phosphorus 2.0 L Magnesium 1.6 L Iron TIBC % Saturation Total Bilirubin 2.0 H AST 87 H ALT 51 Alkaline Phosphatase 91 Total Protein 7.4 Albumin 4.2 Globulin 3.3 Albumin/Globulin Ratio 1.3 Stool Occult Blood Positive H 01/20/17 08:36 WBC RBC Hgb Hct MCV MCH MCHC RDW Plt Count MPV Gran % Lymph % (Auto) Person % (Auto) Eos % (Auto) Baso % (Auto) Gran # Lymph # Person # Eos # Baso # Sodium Potassium Chloride Carbon Dioxide Anion Gap BUN Creatinine Est GFR ( Amer) Est GFR (Non-Af Amer) Random Glucose Calcium Phosphorus Magnesium Iron 53 TIBC 294 % Saturation 18 L Total Bilirubin AST ALT Alkaline Phosphatase Total Protein Albumin Globulin Albumin/Globulin Ratio Stool Occult Blood Fingerstick Blood Sugar Results: 117 Review of Systems - Review of Systems Systems not reviewed;Unavailable: Other (sedated) Critical Care Progress Note - Extremities/Vascular Does the Patient have a Central Venous Catheter?: No Does the Patient need a Central Venous Catheter?: No Does the Patient have a Gordon Catheter?: No Does the Patient need a Gordon Catheter?: No - Prophylaxis GI Prophylaxis GI: PPI - Prophylaxis DVT Prophylaxis DVT: Not Indicated (contraindicated) - Nutrition Nutrition: Nutrition Category Date Time Status NPO Diet [DIET] Diets 01/19/17 Dinner Ordered Assessment/Plan - Assessment and Plan (Free Text) Assessment: 66M w/subdural hematoma s/p fall and ETOH withdrawal, with agitation overnight, slightly improving midline shift on CT scan, continuing to require ICU care. Plan: Neuro Currently sedated ETOH intoxication/withdrawal/DTs Librium 50mg Q8 Ativan PRN Thiamine FOlic Acid Keppra Neurontin MV daily CIWA protocol Restraints PRN HOB to 30 degrees 1:1 Fall precautions Seizure precautions Aspiration precautions neuro checks Subdural hematoma- midline shift resolving Swallow eval CT brain at 4pm Contraindications to VTE ppx Neuro following Neurosurgery following CVS Some tachycardia overnight BP mostly WNL Monitor Pulm Tachypneic overnight Stable on RA Target SaO2>94% GI Diarrhea FU C diff NPO Hyperbilirubinemia T bili 2.0 from 1.2 Aspiration precautions [place] catheter urinating freely Nephro Changed IVF to NS from D5W Hyponatremia Na 127 from 141 Hypokalemia K 3.3 from 3.7 Hypomagnesemia Mg 1.6 from 1.8 Hypophosphatemia 2.0 from 1.7 Replaced K, Mg, Phos Nephro consulted Heme/Onc Hgb 9.9 from 9.4 Hct 30.3 from 28.4 FOB positive TIBC 294 Fe 52 %sat 18 (low) Monitor for bleeding ID Afebrile Leukocytosis resolved Monitor Endo BS WNL MSK Monitor for skin break down GI/DVT ppx Protonix SCDs Contraindications to VTE ppx 2/[address] head at 4pm OT [facility]AC[facility] ICU attending Tammy, PGY-1 - Date & Time Date: 01/20/17 Time: 07:15 <Kaiser Mooney - Last Filed: 01/20/17 11:51> CCU Objective - Vital Signs / Intake & Output Vital Signs (Last 4 hours): Vital Signs Temp Pulse Resp BP Pulse Ox 01/20/17 10:06 99 H 42 H 01/20/17 09:12 98 H 40 H 01/20/17 09:01 102 H 33 H 142/64 95 01/20/17 09:00 103 H 33 H 88 L 01/20/17 08:00 83 30 H 142/87 97 01/20/17 07:43 99.5 F Intake and Output (Last 8hrs): Intake & Output 01/19/17 01/20/17 01/20/17 22:59 06:59 14:59 Intake Total 1380 600 Balance 1380 600 Weight 125 lb Intake: IV 1200 600 Left External Jugular 1200 600 Oral 180 Other: Voiding Method Incontinent Incontinent Incontinent # Bowel Movements 1 3 - Medications Active Medications: Active Medications Generic Name Dose Route Start Last Admin Trade Name Freq PRN Reason Stop Dose Admin Chlordiazepoxide 50 mg 01/20/17 14:00 Librium PO Q8 SUMIT Protocol Folic Acid 1 mg 01/20/17 10:00 Folic Acid PO DAILY [facility]IT Gabapentin 300 mg 01/19/17 18:00 01/20/17 09:43 Neurontin PO 300 mg TID SUMIT Administration Protocol Levetiracetam 500 mg in 100 mls @ 400 mls/hr 01/19/17 22:00 01/20/17 09:42 Keppra 500mg Ivpb IVPB 400 mls/hr Q12 SUMIT Administration Potassium Chloride 20 meq in 100 mls @ 50 mls/hr 01/20/17 08:45 01/20/17 09: 47 Potassium Chloride 20 Meq/100 Ml IVPB 01/20/17 12:44 50 mls/hr Q2H SUMIT Administration Sodium Phosphate 15 mmole/ 255 mls @ 42.5 mls/hr 01/20/17 08:35 Sodium Chloride IVPB 01/20/17 14:34 ONCE ONE Sodium Chloride 1,000 mls @ 100 mls/hr 01/20/17 09:30 01/20/17 09:49 Sodium Chloride 0.9% IV 100 mls/hr .Q10H SUMIT Administration Lorazepam 1 mg 01/19/17 00:42 01/20/17 09:42 Ativan IVP 1 mg Q2H PRN Administration Symptoms of alcohol withdrawl Protocol Multivitamins/Minerals 1 tab 01/21/17 08:00 Therapeutic-M Tab PO 0800 [facility] Pantoprazole Sodium 40 mg 01/19/17 10:00 01/20/17 09:44 Protonix Inj IVP 40 mg DAILY SUMIT Administration Thiamine HCl 100 mg 01/20/17 10:00 Vitamin B1 Tab PO DAILY SUMIT - Patient Studies Lab Studies: Lab Studies 01/20/17 01/20/17 01/20/17 Range/Units 08:36 07:30 06:35 WBC (4.5-11.0) 10^3/ul RBC (3.5-6.1) 10^6/uL Hgb (14.0-18.0) g/dL Hct (42.0-52.0) % MCV (80.0-105.0) fl MCH (25.0-35.0) pg MCHC (31.0-37.0) g/dl RDW (11.5-14.5) % Plt Count (120.0-450.0) 10^3/uL MPV (7.0-11.0) fl Gran % (50.0-68.0) % Lymph % (Auto) (22.0-35.0) % Person % (Auto) (1.0-6.0) % Eos % (Auto) (1.5-5.0) % Baso % (Auto) (0.0-3.0) % Gran # (1.4-6.5) Lymph # (1.2-3.4) Person # (0.1-0.6) Eos # (0.0-0.7) Baso # (0.0-2.0) K/mm3 Sodium 127 L (132-148) mmol/L Potassium 3.3 L (3.6-5.0) mmol/L Chloride 89 L (98-107) mmol/L Carbon Dioxide 24 (21-33) mmol/L Anion Gap 17 (10-20) BUN 8 (7-21) mg/dL Creatinine 0.5 (0.5-1.4) mg/dL Est GFR ( Amer) > 60 Est GFR (Non-Af Amer) > 60 Random Glucose 70 (70-110) mg/dL Calcium 8.5 (8.4-10.5) mg/dL Phosphorus 2.0 L (2.5-4.5) mg/dL Magnesium 1.6 L (1.7-2.2) mg/dL Iron 53 (45-180) ug/dL TIBC 294 (261-462) ug/dL % Saturation 18 L (20-55) % Total Bilirubin 2.0 H (0.2-1.3) mg/dL AST 87 H (17-59) U/L ALT 51 (7-56) U/L Alkaline Phosphatase 91 (38-126) U/L Total Protein 7.4 (5.8-8.3) g/dL Albumin 4.2 (3.0-4.8) g/dL Globulin 3.3 gm/dL Albumin/Globulin Ratio 1.3 (1.1-1.8) Stool Occult Blood Positive H (NEGATIVE) 01/20/17 Range/Units 06:35 WBC 6.6 D (4.5-11.0) 10^3/ul RBC 3.38 L (3.5-6.1) 10^6/uL Hgb 9.9 L (14.0-18.0) g/dL Hct 30.3 L (42.0-52.0) % MCV 89.6 (80.0-105.0) fl MCH 29.3 (25.0-35.0) pg MCHC 32.7 (31.0-37.0) g/dl RDW 14.9 H (11.5-14.5) % Plt Count 151 (120.0-450.0) 10^3/uL MPV 10.7 (7.0-11.0) fl Gran % 75.3 H (50.0-68.0) % Lymph % (Auto) 15.4 L (22.0-35.0) % Person % (Auto) 8.9 H (1.0-6.0) % Eos % (Auto) 0.2 L (1.5-5.0) % Baso % (Auto) 0.2 (0.0-3.0) % Gran # 4.94 (1.4-6.5) Lymph # 1.0 L (1.2-3.4) Person # 0.6 (0.1-0.6) Eos # 0.0 (0.0-0.7) Baso # 0.01 (0.0-2.0) K/mm3 Sodium (132-148) mmol/L Potassium (3.6-5.0) mmol/L Chloride (98-107) mmol/L Carbon Dioxide (21-33) mmol/L Anion Gap (10-20) BUN (7-21) mg/dL Creatinine (0.5-1.4) mg/dL Est GFR ( Amer) Est GFR (Non-Af Amer) Random Glucose (70-110) mg/dL Calcium (8.4-10.5) mg/dL Phosphorus (2.5-4.5) mg/dL Magnesium (1.7-2.2) mg/dL Iron (45-180) ug/dL TIBC (261-462) ug/dL % Saturation (20-55) % Total Bilirubin (0.2-1.3) mg/dL AST (17-59) U/L ALT (7-56) U/L Alkaline Phosphatase (38-126) U/L Total Protein (5.8-8.3) g/dL Albumin (3.0-4.8) g/dL Globulin gm/dL Albumin/Globulin Ratio (1.1-1.8) Stool Occult Blood (NEGATIVE) Laboratory Results - last 24 hr 01/20/17 01/20/17 01/20/17 06:35 06:35 07:30 WBC 6.6 D RBC 3.38 L Hgb 9.9 L Hct 30.3 L MCV 89.6 MCH 29.3 MCHC 32.7 RDW 14.9 H Plt Count 151 MPV 10.7 Gran % 75.3 H Lymph % (Auto) 15.4 L Person % (Auto) 8.9 H Eos % (Auto) 0.2 L Baso % (Auto) 0.2 Gran # 4.94 Lymph # 1.0 L Person # 0.6 Eos # 0.0 Baso # 0.01 Sodium 127 L Potassium 3.3 L Chloride 89 L Carbon Dioxide 24 Anion Gap 17 BUN 8 Creatinine 0.5 Est GFR ( Amer) > 60 Est GFR (Non-Af Amer) > 60 Random Glucose 70 Calcium 8.5 Phosphorus 2.0 L Magnesium 1.6 L Iron TIBC % Saturation Total Bilirubin 2.0 H AST 87 H ALT 51 Alkaline Phosphatase 91 Total Protein 7.4 Albumin 4.2 Globulin 3.3 Albumin/Globulin Ratio 1.3 Stool Occult Blood Positive H 01/20/17 08:36 WBC RBC Hgb Hct MCV MCH MCHC RDW Plt Count MPV Gran % Lymph % (Auto) Person % (Auto) Eos % (Auto) Baso % (Auto) Gran # Lymph # Person # Eos # Baso # Sodium Potassium Chloride Carbon Dioxide Anion Gap BUN Creatinine Est GFR ( Amer) Est GFR (Non-Af Amer) Random Glucose Calcium Phosphorus Magnesium Iron 53 TIBC 294 % Saturation 18 L Total Bilirubin AST ALT Alkaline Phosphatase Total Protein Albumin Globulin Albumin/Globulin Ratio Stool Occult Blood Critical Care Progress Note - Nutrition Nutrition: Nutrition Category Date Time Status NPO Diet [DIET] Diets 01/19/17 Dinner Ordered Assessment/Plan - Assessment and Plan (Free Text) Plan: Patient seen and examined, with Resident Dr Munoz, agree with note. Patient is 66yo male, with hx of heavy etoh abuse, presented s/p fall, and SDH which has radiographically improved, and EtOH withdrawal. Currently the patient is awake, but not alert, no focal neurological deficits. neurology, and Neurosurgery following. Patient on Librium and CIWA protocol. Na today 127, will DC all hypotonic fluids, start on NS, renal consulted. HH stable. Will need repeat CT head today. SDH EtOh withdrawal EtOH abuse Anemia Hyponatremia Hypokalemia Hypomagnesemia Hypophosphatemia Recommend: - q1hr neuro checks - repeat CT head today - follow up NSG, Neurology - Keppra IV, and neurontin for seizure ppx as per neurology - monitor resp status - aspiration precautions - HOB to 30 degrees - 1:1 - Fall precautions - Seizure precautions - Thiamine, Folic Acid, MVT - Librium - Ativan PRN, CIWA protocol - Start NS IVF - DC D5W - Nephrology consult - replete electrolytes - GI ppx, PPI - DVT ppx, SCDs Critical care time: 35minutes
[2017-01-20 12:30] LABS: FOLATE > 20.0 ng/mL
[2017-01-20 12:44] LABS: PH,URINE 6.5 (4.7-8.0); URINE BILIRUBIN NEGATIVE (NEGATIVE); URINE BLOOD NEGATIVE (NEGATIVE); URINE GLUCOSE (UA) NEGATIVE (NEGATIVE); URINE KETONE 40 mg/dL (NEGATIVE); URINE LEUKOCYTE ESTERASE NEGATIVE Leu/uL (NEGATIVE); URINE PROTEIN NEGATIVE mg/dL (<30 mg/dL)
[2017-01-20 12:45] LABS: URINE APPEARANCE CLEAR (CLEAR); URINE COLOR YELLOW (YELLOW)
--- NOTE | 2017-01-20 13:01 | CP.PCM.PN ---
<Pritesh Briggs - Last Filed: 01/20/17 16:56> Subjective - Date & Time of Evaluation Date of Evaluation: 01/20/17 Time of Evaluation: 07:15 - Subjective Subjective: Pritesh Briggs DO PGY1- Internal Medicine Progress Note Patient seen and examined bedside in the ICU. No acute events overnight. Objective - Vital Signs/Intake and Output Vital Signs (last 24 hours): Temp Pulse Resp BP Pulse Ox 99.5 F 81 42 H 142/64 95 01/20/17 07:43 01/20/17 11:00 01/20/17 10:06 01/20/17 09:01 01/20/17 09:01 Intake and Output: 01/20/17 01/20/17 06:59 18:59 Intake Total 600 Balance 600 - Medications Medications: Current Medications Chlordiazepoxide (Librium) 50 mg PO Q8 [facility]IT PRN Reason: Protocol Folic Acid (Folic Acid) 1 mg PO DAILY [facility] Gabapentin (Neurontin) 300 mg PO TID [facility]IT PRN Reason: Protocol Last Admin: 01/20/17 09:43 Dose: 300 mg Levetiracetam (Keppra 500mg Ivpb) 500 mg in 100 mls @ 400 mls/hr IVPB Q12 [facility] Last Admin: 01/20/17 09:42 Dose: 400 mls/hr Sodium Phosphate 15 mmole/ (Sodium Chloride) 255 mls @ 42.5 mls/hr IVPB ONCE ONE Stop: 01/20/17 14:34 Sodium Chloride (Sodium Chloride 0.9%) 1,000 mls @ 100 mls/hr IV .Q10H [facility] Last Admin: 01/20/17 09:49 Dose: 100 mls/hr Lorazepam (Ativan) 1 mg IVP Q2H PRN; Protocol PRN Reason: Symptoms of alcohol withdrawl Last Admin: 01/20/17 09:42 Dose: 1 mg Multivitamins/Minerals (Therapeutic-M Tab) 1 tab PO 0800 [facility] Pantoprazole Sodium (Protonix Inj) 40 mg IVP DAILY [facility] Last Admin: 01/20/17 09:44 Dose: 40 mg Thiamine HCl (Vitamin B1 Tab) 100 mg PO DAILY [facility] - Labs Labs: 01/20/17 06:35 01/20/17 06:35 PT 10.5 Seconds (9.9-11.8) 01/18/17 21:26 INR 0.97 (0.93-1.08) 01/18/17 21:26 APTT 29.5 Seconds (23.7-30.8) 01/18/17 21:26 - Constitutional Appears: No Acute Distress, Older Than Stated Age - Head Exam Head Exam: ATRAUMATIC, NORMAL INSPECTION, NORMOCEPHALIC - Eye Exam Eye Exam: Normal appearance Pupil Exam: PERRL - Respiratory Exam Respiratory Exam: NORMAL BREATHING PATTERN - Cardiovascular Exam Cardiovascular Exam: REGULAR RHYTHM, +S1, +S2 - GI/Abdominal Exam GI & Abdominal Exam: Normal Bowel Sounds - Neurological Exam Additional comments: Patient was drowsy Assessment and Plan - Assessment and Plan (Free Text) Assessment: 66 M with PMH alcoholism, presents s/p fall, found to have a subdural hemorrhage. Plan: 1. Subdural hemorrhage 2/2 likely fall: - CT head showed acute 11.2 mm subdural hemorrhage within left cerebral hemishphere and right frontal region yesterday with a midline shift of 10.6 mm from left to right. Repeat CT was done and the midline shift decreased to 7.3mm. - Neurocheck q1h - Neurosurgery is on board - Neurology on board - head of bed is raised > 30 degrees - Avoid heparin/any AC - fall, seizure precautions 2. Fall 2/2 likely alcohol intoxication: - CIWA protocol, Ativan prn, Librium 50 mg PO Q8 SUMIT - Seizure/fall precautions 3. Hyponatremia - Na was 127 - urinalysis ordered - Nephrology consulted - Hyponatremia workup ordered - Sodium Phosphate administered - continue to monitor electrolytes 4. Diarrhea -C Diff testing ordered 3. GERD: - IV Protonix <Brenda Hernandez A - Last Filed: 01/20/17 17:35> Objective - Vital Signs/Intake and Output Vital Signs (last 24 hours): Temp Pulse Resp BP Pulse Ox 99.5 F 126 H 27 H 152/88 H 96 01/20/17 07:43 01/20/17 17:00 01/20/17 17:00 01/20/17 16:00 01/20/17 17:00 Intake and Output: 01/20/17 01/20/17 06:59 18:59 Intake Total 600 Balance 600 - Medications Medications: Current Medications Chlordiazepoxide (Librium) 50 mg PO Q8 [facility] PRN Reason: Protocol Last Admin: 01/20/17 13:15 Dose: 50 mg Folic Acid (Folic Acid) 1 mg PO DAILY [facility] Last Admin: 01/20/17 13:15 Dose: 1 mg Gabapentin (Neurontin) 300 mg PO TID [facility] PRN Reason: Protocol Last Admin: 01/20/17 13:15 Dose: 300 mg Levetiracetam (Keppra 500mg Ivpb) 500 mg in 100 mls @ 400 mls/hr IVPB Q12 [facility] Last Admin: 01/20/17 09:42 Dose: 400 mls/hr Sodium Chloride (Sodium Chloride 0.9%) 1,000 mls @ 100 mls/hr IV .Q10H [facility] Last Admin: 01/20/17 09:49 Dose: 100 mls/hr Lorazepam (Ativan) 1 mg IVP Q2H PRN; Protocol PRN Reason: Symptoms of alcohol withdrawl Last Admin: 01/20/17 09:42 Dose: 1 mg Multivitamins/Minerals (Therapeutic-M Tab) 1 tab PO 0800 [facility] Pantoprazole Sodium (Protonix Inj) 40 mg IVP DAILY [facility] Last Admin: 01/20/17 09:44 Dose: 40 mg Thiamine HCl (Vitamin B1 Tab) 100 mg PO DAILY [facility] - Labs Labs: 01/20/17 06:35 01/20/17 06:35 PT 10.5 Seconds (9.9-11.8) 01/18/17 21:26 INR 0.97 (0.93-1.08) 01/18/17 21:26 APTT 29.5 Seconds (23.7-30.8) 01/18/17 21:26 Attending/Attestation - Attestation I have personally seen and examined this patient.: Yes I have fully participated in the care of the patient.: Yes I have reviewed all pertinent clinical information, including history, physical exam and plan: Yes Notes (Text): 01/20/17 17:28 66 year old male with past medical history of chronic ETOH abuse who presented s /p fall secondary to alcohol intoxication. He was found to have subdural hemorrhage and admitted to the ICU. Neurology and neurosurgery are following the patient. Continue with serial neurochecks and CT head imaging as per NS. He is on ativan prn and librium for acute alcohol withdrawal as per ICU. Would avoid oversedation. He is on multivitamin, folic acid and thiamine. He has hyponatremia today. Nephrology evaluation was requested. Will replete and repeat lytes. Anemia workup is ordered for anemia. Brenda Hernandez MD Hospitalist.
--- NOTE | 2017-01-20 16:25 | CP.PCM.PN ---
Subjective - Date & Time of Evaluation Date of Evaluation: 01/20/17 Time of Evaluation: 11:00 - Subjective Subjective: Mr. Sharma was seen and examined today at bedside in the ICU. He was found in NAD. There were no acute events overnight. He is in CIWA protocol and is being treated for signs of withdrawal. He was somnolent when I examined him, but followed simple commands in all extremities. Objective - Vital Signs/Intake and Output Vital Signs (last 24 hours): Temp Pulse Resp BP Pulse Ox 99.5 F 89 23 144/85 98 01/20/17 07:43 01/20/17 14:00 01/20/17 14:00 01/20/17 14:00 01/20/17 14:00 Intake and Output: 01/20/17 01/20/17 06:59 18:59 Intake Total 600 Balance 600 - Medications Medications: Current Medications Chlordiazepoxide (Librium) 50 mg PO Q8 SUMIT PRN Reason: Protocol Last Admin: 01/20/17 13:15 Dose: 50 mg Folic Acid (Folic Acid) 1 mg PO DAILY [facility] Last Admin: 01/20/17 13:15 Dose: 1 mg Gabapentin (Neurontin) 300 mg PO TID SUMIT PRN Reason: Protocol Last Admin: 01/20/17 13:15 Dose: 300 mg Levetiracetam (Keppra 500mg Ivpb) 500 mg in 100 mls @ 400 mls/hr IVPB Q12 SUMIT Last Admin: 01/20/17 09:42 Dose: 400 mls/hr Sodium Chloride (Sodium Chloride 0.9%) 1,000 mls @ 100 mls/hr IV .Q10H [facility] Last Admin: 01/20/17 09:49 Dose: 100 mls/hr Lorazepam (Ativan) 1 mg IVP Q2H PRN; Protocol PRN Reason: Symptoms of alcohol withdrawl Last Admin: 01/20/17 09:42 Dose: 1 mg Multivitamins/Minerals (Therapeutic-M Tab) 1 tab PO 0800 [facility] Pantoprazole Sodium (Protonix Inj) 40 mg IVP DAILY [facility] Last Admin: 01/20/17 09:44 Dose: 40 mg Thiamine HCl (Vitamin B1 Tab) 100 mg PO DAILY [facility] - Labs Labs: 01/20/17 06:35 01/20/17 06:35 PT 10.5 Seconds (9.9-11.8) 01/18/17 21:26 INR 0.97 (0.93-1.08) 01/18/17 21:26 APTT 29.5 Seconds (23.7-30.8) 01/18/17 21:26 - Neurological Exam Additional comments: Neurologically unchanged compared with previous examination. Assessment and Plan (1) Subdural hematoma Assessment & Plan: Continue conservative management: avoid hypertension, fever, hyperglycemia, hyponatremia. Continue Q2 hour neuro-checks. Discuss DVT prophylaxis with neurosurgery. Continue SCDs. Status: Acute
--- NOTE | 2017-01-20 17:53 | CT ---
EXAM: CT Head Without Intravenous Contrast CLINICAL HISTORY: 66 years old, male; Signs and symptoms; Patient HX: Sdh TECHNIQUE: Axial computed tomography images of the head/brain without intravenous contrast. All CT scans at this facility use one or more dose reduction techniques, viz.: automated exposure control; ma/kV adjustment per patient size (including targeted exams where dose is matched to indication; i.e. head); or iterative reconstruction technique. COMPARISON: CT - HEAD W/O CONTRAST 01/19/2017 9:28:44 PM FINDINGS: Brain: Mild atrophy. Redemonstration of bilateral subdural hematomas, LEFT greater than RIGHT, grossly stable. Redemonstration of subdural hematoma along falx, grossly stable. No mass. Minimal encephalomalacia within LEFT frontal region. Few scattered foci of decreased attenuation within periventricular/subcortical white matter. Grossly preserved madrigal-white matter differentiation. Patent basilar cisterns. Midline shift: 0.7 cm LEFT to RIGHT shift, grossly stable. Ventricles: No hydrocephalus. Bones/joints: No acute fracture. Chronic deformity nasal bones. Mauro hole. Soft tissues: Unremarkable. Vasculature: Mild atherosclerotic disease of intracranial arteries. Sinuses: Scattered mild mucosal thickening of ethmoid sinuses. Mastoid air cells: No mastoid effusion. Orbits: Unremarkable as visualized. IMPRESSION: 1. Intracranial hemorrhage as above without significant interval change. 2. Nonspecific white matter changes. 3. Incidental/non-acute findings are described above.
--- NOTE | 2017-01-20 19:32 | CON ---
NEPHROLOGY CONSULTATION DATE: HISTORY OF PRESENT ILLNESS: A 66-year-old male with past medical history of alcohol abuse, found down by family member on the floor. Family member reportedly saying that the patient fell due to being intoxicated. Review of systems limited on presentation due to patient being intoxicated when no family member present at that time at bedside. Patient found to have acute subdural hemorrhage. Nephrology service is being consulted for hyponatremia. PAST MEDICAL HISTORY: Alcoholism, GERD, gastritis. FAMILY HISTORY: Unknown. SOCIAL HISTORY: Current smoker, alcoholic. REVIEW OF SYSTEMS: Limited as patient is currently in alcohol withdrawal. PHYSICAL EXAMINATION GENERAL: Patient agitated, tremulous. VITAL SIGNS: This morning, blood pressure 142/64, heart rate 102, respirations 33, temperature 99.5, O2 sat 95% on room air. HEENT: Moist mucous membranes, nonicteric. RESPIRATORY: Lungs are clear to auscultation bilaterally. No rales, no rhonchi, no wheezes. HEART: S1 and S2 normal, tachycardic. No murmurs, no gallops, no rubs. GASTROINTESTINAL: Abdomen is soft, nontender, nondistended. : No bladder distention. EXTREMITIES: Nonedematous legs. SKIN: Warm. No cyanosis. Peeling of skin in bottom of feet. PSYCHIATRIC: Currently agitated. NEUROLOGIC: Not following commands. CARDIOVASCULAR: No carotid bruit. LABORATORY DATA: This morning CBC: WBC 6.6, hemoglobin 9.9, hematocrit 30.3, platelets 151. Chemistry panel: Sodium 127 down from 133 last night, potassium 3.3, chloride 89, bicarbonate 24, BUN 8, creatinine 0.5, glucose 70, calcium 8.5, phosphorus 2.0, magnesium 1.6, albumin 4.2. Iron saturation 18%, iron 53. TIBC 294. Alcohol level on presentation 264. ASSESSMENT AND PLAN: 1. Hyponatremia. Patient appears euvolemic on exam; however, may have some underlying volume deficit in the setting of alcohol withdrawal and being mildly diaphoretic. Concern is for cerebral salt wasting which would make volume depletion even worse in the setting of acute subdural hematoma. Obtaining urine electrolytes, urine sodium, urine osmolality. Continue IV fluids with normal saline at 100 mL per hour. Obtain 24-hour urine for urine sodium and urine creatinine. 2. Hypokalemia in the setting of alcohol abuse, potassium improved to 3.3; however, may still be having urinary loss. Continue to supplement magnesium and potassium p.o. and IV. Checking urine potassium osmolality and creatinine. 3. Hypophosphatemia. Again, secondary to poor p.o. intake due to alcohol abuse. Continue to supplement p.r.n. 4. Metabolic acidosis. Increased anion gap metabolic acidosis in the setting of alcohol abuse, likely due to ketosis and anion gap currently improved with IV fluids. Continue the same. Jair Holder MD [facility] # [id number]
[2017-01-21] MEDS: Sodium Chloride 0.9% 1,000 ML IV SCH (02:00)
[2017-01-21 06:08] LABS: BASO # 0.01 K/mm3 (0.0-2.0); BASO % 0.2 % (0.0-3.0); EOS % 0.5 % (1.5-5.0); GRAN # 4.36 (1.4-6.5); GRAN % 68.4 % (50.0-68.0); HEMATOCRIT 31.4 % (42.0-52.0); LYMPH % 15.5 % (22.0-35.0); MEAN CELL VOLUME 88.7 fl (80.0-105.0); MEAN CORPUSCULAR HEMOGLOBIN 29.9 pg (25.0-35.0); MEAN CORPUSCULAR HGB CONC 33.8 g/dl (31.0-37.0); MEAN PLATELET VOLUME 9.4 fl (7.0-11.0); MONO % 15.4 % (1.0-6.0); RED CELL DISTRIBUTION WIDTH 14.6 % (11.5-14.5); WHITE BLOOD COUNT 6.4 10^3/ul (4.5-11.0)
[2017-01-21 07:53] LABS: ALB/GLOB RATIO 1.3 (1.1-1.8); ALKALINE PHOSPHATASE 90 U/L (38-126); ALT/SGPT 45 U/L (7-56); AST/SGOT 74 U/L (17-59); BILIRUBIN,TOTAL 1.6 mg/dL (0.2-1.3); BLOOD UREA NITROGEN 5 mg/dL (7-21); CALCIUM 8.4 mg/dL (8.4-10.5); CARBON DIOXIDE 21 mmol/L (21-33); CHLORIDE 89 mmol/L (98-107); GFR AFRICAN-AMERICAN > 60; GLUCOSE,RANDOM 85 mg/dL (70-110); MAGNESIUM 1.6 mg/dL (1.7-2.2); PHOSPHOROUS 2.5 mg/dL (2.5-4.5); POTASSIUM 3.2 mmol/L (3.6-5.0); SODIUM 125 mmol/L (132-148); TOTAL PROTEIN 7.3 g/dL (5.8-8.3)
[2017-01-21] MEDS: Multivitamin With Minerals Tab PO SCH (08:05)
[2017-01-21] MEDS ORDERED: Magnesium Sulfate 2 GM in Sodium Chloride 0.9% 100 ML IV ONE (08:56)
[2017-01-21] MEDS: levETIRAcetam 500mg IVPB 500 MG/100 ML BAG IVPB SCH ×2 (09:06→21:54)
[2017-01-21] MEDS: Potassium Chloride 20 mEq ER Tab PO SCH ×2 (09:26→15:44)
--- NOTE | 2017-01-21 09:28 | CP.PCM.HP ---
History of Present Illness - History of Present Illness History of Present Illness: Elena Pathak, PGY1, ICU Consult Note for Dr. Lyon: CC: fall x1 HPI: 66M with PMH alcoholism, presents s/p fall, found down by family member on the floor. Family stated that the pt fell due to intoxication. ROS limited bc patient intoxicated, no family member at bedside. Pt drowsy/intoxicated, awakens on command, oriented to self only, ROS thus obtained from previous chart records. Pt denies cp, f/c, n/v, headache, blurry vision, abdominal pain. In ED, NS stable, CT head showed 11.2 mm acute subdural hemorrhage within left cerebral hemishphere and R frontal region, with small 10.6 mm midline shift from L to R. Neurosurgery - Dr. Lindsey, on board, no acute intervention at this time. PMH: alcoholism, gerd, gastritis PSH: cholecystectomy, appendectomy Allergies: NKDA FH: unknown Social hx: Current smoker. Alcoholic. Unknown if other illicit drug use. Lives alone. Review of Systems - Review of Systems Systems not reviewed;Unavailable: Altered Mental Status, Intoxicated Past Patient History - Infectious Disease Hx of Infectious Diseases: None - Tetanus Immunizations Tetanus Immunization: Unknown - Past Medical History & Family History Past Medical History?: Yes - Past Social History Smoking Status: Heavy Smoker > 10 Cigarettes Daily - CARDIAC Hx Cardiac Disorders: Yes Hx Hypertension: Yes - PULMONARY Hx Respiratory Disorders: Yes Hx Chronic Obstructive Pulmonary Disease (COPD): Yes - NEUROLOGICAL Hx Neurological Disorder: Yes HX Cerebrovascular Accident: Yes - HEENT Hx HEENT Problems: Yes (nasal deformity boxing injury) - RENAL Hx Chronic Kidney Disease: No - ENDOCRINE/METABOLIC Hx Endocrine Disorders: No - HEMATOLOGICAL/ONCOLOGICAL Hx Blood Disorders: No Hx Cancer: No - INTEGUMENTARY Hx Dermatological Problems: Yes Other/Comment: black, scrape andreddened, reddened buttocks, and multiple red wounds to sacrum small amt bleeding noted, tip of r great toe small dry wound surrounded by dry skin, poor hygeine - MUSCULOSKELETAL/RHEUMATOLOGICAL Hx Musculoskeletal Disorders: Yes Hx Falls: Yes Hx Fractures: Yes Hx Rhabdomyolysis: Yes Hx Unsteady Gait: Yes Other/Comment: left hip left arm left leg fx - GASTROINTESTINAL Hx Gastrointestinal Disorders: Yes (gastritis) Hx Gastroesophageal Reflux: Yes - GENITOURINARY/GYNECOLOGICAL Hx Genitourinary Disorders: No Hx Sexually Transmitted Disorders: No - PSYCHIATRIC Hx Psychophysiologic Disorder: Yes Hx Anxiety: Yes Hx Bipolar Disorder: No Hx Depression: Yes Hx Panic Symptoms: Yes Hx Psychosis: Yes Hx Schizophrenia: No Hx Substance Use: No Other/Comment: 1.5 liters vodka daily, suicide attempt 40 yrs ago - SURGICAL HISTORY Hx Appendectomy: Yes Hx Cholecystectomy: Yes Hx Orthopedic Surgery: Yes Other/Comment: left femur metal implant, fell off roof of house, sx to left elbow, left hip, left arm - ANESTHESIA Hx Anesthesia: Yes Hx Anesthesia Reactions: No Hx Malignant Hyperthermia: No Meds Allergies/Adverse Reactions: Allergies Allergy/AdvReac Type Severity Reaction Status Date / Time No Known Allergies Allergy Verified 01/18/17 20:42 - Medications Medications: Current Medications Multivitamins/Vitamin C 10 ml/Thiamine HCl 100 mg/ Folic Acid 1 mg/ Sodium Chloride 1,011.2 mls @ 100 mls/hr IV .Q10H7M ONE Stop: 01/19/17 10:47 Lorazepam (Ativan) 1 mg IVP Q2H PRN; Protocol PRN Reason: Symptoms of alcohol withdrawl Pantoprazole Sodium (Protonix Inj) 40 mg IVP DAILY SUMIT Physical Exam - Constitutional Appears: Older Than Stated Age - Head Exam Head Exam: ATRAUMATIC, NORMOCEPHALIC - Eye Exam Eye Exam: PERRL. absent: Conjunctival injection, Scleral icterus Pupil Exam: PERRL - ENT Exam ENT Exam: Mucous Membranes Moist - Neck Exam Neck exam: Negative for: Lymphadenopathy, Thyromegaly - Respiratory Exam Respiratory Exam: Clear to Auscultation Bilateral. absent: Accessory Muscle Use , Rales, Rhonchi, Wheezes, Respiratory Distress - Cardiovascular Exam Cardiovascular Exam: RRR, +S1, +S2. absent: Systolic Murmur - GI/Abdominal Exam GI & Abdominal Exam: Normal Bowel Sounds, Soft. absent: Guarding, Rebound, Tenderness - Extremities Exam Extremities exam: Positive for: pedal pulses present. Negative for: calf tenderness, pedal edema - Neurological Exam Additional comments: oriented to self only. drowsy/intoxicated - Skin Skin Exam: Dry, Warm Results - Vital Signs Recent Vital Signs: Last Vital Signs Temp 97.5 F L 01/18/17 20:55 Pulse 86 01/19/17 00:48 Resp 20 01/19/17 00:48 BP 108/76 01/19/17 00:48 Pulse Ox 99 01/19/17 00:48 - Labs Result Diagrams: 01/18/17 21:26 01/18/17 21:26 Assessment & Plan - Assessment and Plan (Free Text) Assessment: 66 M with PMH alcoholism, presents s/p fall, found to have a subdural hemorrhage. Plan: Subdural hemorrhage 2/2 likely fall: - CT head shows acute 11.2 mm subdural hemorrhage within left cerebral hemishphere and right frontal region. small midline shift 10.6 mm from left to right. - Neurocheck q1h - Neurosurgery - dr lindsey on board - no acute intervention now - Neurology c/w, f/u recs - Avoid heaprin/any AC - fall, seizure precautions - HOB>30 Fall 2/2 likely alcohol intoxication: - ETOH level 264, CIWA protocol, Ativan prn - Seizure/fall precautions GERD: - IV Protonix Please obtain home meds from pharmacy in AM. Discussed with Dr Sonali Pathak, PGY1 - Date & Time Date: 01/19/17 Time: 01:37 Present on Admission - Present on Admission Any Indicators Present on Admission: No Past Patient History - Infectious Disease Hx of Infectious Diseases: None - Tetanus Immunizations Tetanus Immunization: Unknown - Past Medical History & Family History Past Medical History?: Yes - Past Social History Smoking Status: Heavy Smoker > 10 Cigarettes Daily - CARDIAC Hx Cardiac Disorders: Yes Hx Hypertension: Yes - PULMONARY Hx Respiratory Disorders: Yes Hx Chronic Obstructive Pulmonary Disease (COPD): Yes - NEUROLOGICAL HX Cerebrovascular Accident: Yes - HEENT Hx HEENT Problems: Yes (nasal deformity boxing injury) - RENAL Hx Chronic Kidney Disease: No - ENDOCRINE/METABOLIC Hx Endocrine Disorders: No - HEMATOLOGICAL/ONCOLOGICAL Hx Blood Disorders: No Hx Cancer: No - INTEGUMENTARY Hx Dermatological Problems: Yes Other/Comment: black, scrape andreddened, reddened buttocks, and multiple red wounds to sacrum small amt bleeding noted, tip of r great toe small dry wound surrounded by dry skin, poor hygeine - MUSCULOSKELETAL/RHEUMATOLOGICAL Hx Falls: Yes - GASTROINTESTINAL Hx Gastroesophageal Reflux: Yes - GENITOURINARY/GYNECOLOGICAL Hx Genitourinary Disorders: No Hx Sexually Transmitted Disorders: No - PSYCHIATRIC Hx Psychophysiologic Disorder: Yes Hx Anxiety: Yes Hx Bipolar Disorder: No Hx Depression: Yes Hx Panic Symptoms: Yes Hx Psychosis: Yes Hx Schizophrenia: No Hx Substance Use: No Other/Comment: 1.5 liters vodka daily, suicide attempt 40 yrs ago - SURGICAL HISTORY Hx Appendectomy: Yes Hx Cholecystectomy: Yes Hx Orthopedic Surgery: Yes Other/Comment: left femur metal implant, fell off roof of house, sx to left elbow, left hip, left arm - ANESTHESIA Hx Anesthesia: Yes Hx Anesthesia Reactions: No Hx Malignant Hyperthermia: No Meds Allergies/Adverse Reactions: Allergies Allergy/AdvReac Type Severity Reaction Status Date / Time No Known Allergies Allergy Verified 01/18/17 20:42 Results - Vital Signs Recent Vital Signs: Last Vital Signs Temp 100.2 F H 01/21/17 00:00 Pulse 102 H 01/21/17 06:01 Resp 26 H 01/21/17 06:01 BP 137/85 01/21/17 06:01 Pulse Ox 74 L 01/21/17 02:02 - Labs Result Diagrams: 01/21/17 05:30 01/21/17 05:30 Labs: Laboratory Results - last 24 hr 01/20/17 01/20/17 01/20/17 08:36 08:36 09:38 WBC RBC Hgb Hct MCV MCH MCHC RDW Plt Count MPV Gran % Lymph % (Auto) [place] % (Auto) Eos % (Auto) Baso % (Auto) Gran # Lymph # [place] # Eos # Baso # Sodium Potassium Chloride Carbon Dioxide Anion Gap BUN Creatinine Est GFR ( Amer) Est GFR (Non-Af Amer) Random Glucose Serum Osmolality 260 L Uric Acid Calcium Phosphorus Magnesium Iron 53 TIBC 294 % Saturation 18 L Ferritin 226.0 Total Bilirubin AST ALT Alkaline Phosphatase Total Protein Albumin Globulin Albumin/Globulin Ratio Vitamin B12 675 Folate > 20.0 TSH 3rd Generation Urine Color Urine Appearance Urine pH Ur Specific [place] Urine Protein Urine Glucose (UA) Urine Ketones Urine Blood Urine Nitrate Urine Bilirubin Urine Urobilinogen Ur Leukocyte Esterase Urine Osmolality Ur Random Sodium Ur Random Potassium 01/20/17 01/20/17 01/20/17 09:38 09:38 12:08 WBC RBC Hgb Hct MCV MCH MCHC RDW Plt Count MPV Gran % Lymph % (Auto) [place] % (Auto) Eos % (Auto) Baso % (Auto) Gran # Lymph # [place] # Eos # Baso # Sodium Potassium Chloride Carbon Dioxide Anion Gap BUN Creatinine Est GFR ( Amer) Est GFR (Non-Af Amer) Random Glucose Serum Osmolality Uric Acid 2.3 L Calcium Phosphorus Magnesium Iron TIBC % Saturation Ferritin Total Bilirubin AST ALT Alkaline Phosphatase Total Protein Albumin Globulin Albumin/Globulin Ratio Vitamin B12 Folate TSH 3rd Generation Urine Color Yellow Urine Appearance Clear Urine pH 6.5 Ur Specific [place] 1.020 Urine Protein Negative Urine Glucose (UA) Negative Urine Ketones 40 H Urine Blood Negative Urine Nitrate Negative Urine Bilirubin Negative Urine Urobilinogen 2.0 H Ur Leukocyte Esterase Negative Urine Osmolality 589 Ur Random Sodium 204 Ur Random Potassium 30.3 01/20/17 01/21/17 01/21/17 12:08 05:30 05:30 WBC 6.4 RBC 3.54 Hgb 10.6 L Hct 31.4 L MCV 88.7 MCH 29.9 MCHC 33.8 RDW 14.6 H Plt Count 144 MPV 9.4 Gran % 68.4 H Lymph % (Auto) 15.5 L Knox % (Auto) 15.4 H Eos % (Auto) 0.5 L Baso % (Auto) 0.2 Gran # 4.36 Lymph # 1.0 L Knox # 1.0 H Eos # 0.0 Baso # 0.01 Sodium 125 L Potassium 3.2 L Chloride 89 L Carbon Dioxide 21 Anion Gap 18 BUN 5 L Creatinine 0.5 Est GFR ( Amer) > 60 Est GFR (Non-Af Amer) > 60 Random Glucose 85 Serum Osmolality Uric Acid Calcium 8.4 Phosphorus 2.5 Magnesium 1.6 L Iron TIBC % Saturation Ferritin Total Bilirubin 1.6 H AST 74 H ALT 45 Alkaline Phosphatase 90 Total Protein 7.3 Albumin 4.1 Globulin 3.2 Albumin/Globulin Ratio 1.3 Vitamin B12 Folate TSH 3rd Generation 1.33 Urine Color Urine Appearance Urine pH Ur Specific [place] Urine Protein Urine Glucose (UA) Urine Ketones Urine Blood Urine Nitrate Urine Bilirubin Urine Urobilinogen Ur Leukocyte Esterase Urine Osmolality Ur Random Sodium Ur Random Potassium Attending/Attestation - Attestation I have personally seen and examined this patient.: Yes I have fully participated in the care of the patient.: Yes I have reviewed all pertinent clinical information: Yes Notes (Text): -I agree with the above H&P completed by the resident physician with the following additions and/or changes: -The patient is a 66 year old Urdu man with a history of chronic alcohol abuse who presented to ED after suffering a ground level fall (reportedly hitting his head). In the ED he was found to have bilateral subdural hematomas with midline shift. Of note, only minimal history could be obtained from the patient because the he was intoxicated with alcohol during the interview. Neurosurgery did not feel urgent surgical intervention was and therefore he will be admitted to the ICU for close monitoring of neuro symptoms. We will obtain a repeat CT-head in the morning.
[2017-01-21] MEDS ORDERED: Sodium Chloride 0.9% 1,000 ML IV SCH (10:30)
[2017-01-21] MEDS ORDERED: Sodium Chloride 3% 500 ML IV SCH (10:30)
--- NOTE | 2017-01-21 11:11 | CP.PCM.PN ---
<Pritesh Briggs - Last Filed: 01/21/17 20:08> Subjective - Date & Time of Evaluation Date of Evaluation: 01/21/17 Time of Evaluation: 11:03 - Subjective Subjective: Medicine Progress Note for Hospitalist Service Patient was seen and evaluated in the ICU. Patient was sleeping, and was able to wake up when his name was called. Patient has no complaints, unable to get ROS because the patient was not interested in talking. Objective - Vital Signs/Intake and Output Vital Signs (last 24 hours): Temp Pulse Resp BP Pulse Ox 100.2 F H 102 H 26 H 137/85 74 L 01/21/17 00:00 01/21/17 06:01 01/21/17 06:01 01/21/17 06:01 01/21/17 02:02 Intake and Output: 01/21/17 01/21/17 06:59 18:59 Output Total 350 Balance -350 - Medications Medications: Current Medications Chlordiazepoxide (Librium) 25 mg PO Q8 PRN; Protocol PRN Reason: Symptoms of alcohol withdrawl Chlordiazepoxide (Librium) 25 mg PO Q6 SUMIT PRN Reason: Protocol Folic Acid (Folic Acid) 1 mg PO DAILY SUMIT Last Admin: 01/21/17 09:05 Dose: 1 mg Gabapentin (Neurontin) 300 mg PO TID SUMIT PRN Reason: Protocol Last Admin: 01/21/17 09:05 Dose: 300 mg Levetiracetam (Keppra 500mg Ivpb) 500 mg in 100 mls @ 400 mls/hr IVPB Q12 SUMIT Last Admin: 01/21/17 09:06 Dose: 400 mls/hr Acetaminophen (Ofirmev) 1,000 mg in 100 mls @ 400 mls/hr IVPB Q6H PRN PRN Reason: Temperature Stop: 01/23/17 09:17 Last Admin: 01/21/17 09:35 Dose: 400 mls/hr Sodium Chloride (Hypertonic Saline 3%) 500 mls @ 20 mls/hr IV .Q24H SUMIT Lorazepam (Ativan) 1 mg IVP Q6H PRN; Protocol PRN Reason: Symptoms of alcohol withdrawl Last Admin: 01/21/17 09:20 Dose: 1 mg Multivitamins/Minerals (Therapeutic-M Tab) 1 tab PO 0800 SUMIT Last Admin: 01/21/17 08:05 Dose: 1 tab Pantoprazole Sodium (Protonix Inj) 40 mg IVP DAILY SUMIT Last Admin: 01/21/17 09:06 Dose: 40 mg Potassium Chloride (K-Dur 20 Meq Er Tab) 40 meq PO Q3 SUMIT Stop: 01/21/17 12:01 Last Admin: 01/21/17 09:26 Dose: 40 meq Thiamine HCl (Vitamin B1 Tab) 100 mg PO DAILY SUMIT Last Admin: 01/21/17 09:05 Dose: 100 mg - Labs Labs: 01/21/17 05:30 01/21/17 05:30 PT 10.5 Seconds (9.9-11.8) 01/18/17 21:26 INR 0.97 (0.93-1.08) 01/18/17 21:26 APTT 29.5 Seconds (23.7-30.8) 01/18/17 21:26 - Constitutional Appears: No Acute Distress - Head Exam Head Exam: ATRAUMATIC, NORMAL INSPECTION, NORMOCEPHALIC - Eye Exam Eye Exam: Normal appearance - Respiratory Exam Respiratory Exam: Clear to Ausculation Bilateral, NORMAL BREATHING PATTERN. absent: Rales, Rhonchi, Stridor - Cardiovascular Exam Cardiovascular Exam: REGULAR RHYTHM, +S1, +S2. absent: Murmur - GI/Abdominal Exam GI & Abdominal Exam: Normal Bowel Sounds - Neurological Exam Neurological Exam: Awake Assessment and Plan - Assessment and Plan (Free Text) Assessment: 66 yo M with PMH alcoholism, GERD, and Gastritis presents s/p fall, found to have a subdural hemorrhage. Patiently currently in ICU for monitoring. Furthermore the patient was found in alcohol withdrawal and is being currently treated for it. Plan: 1. Subdural hemorrhage 2/2 likely fall: - repeat CT head revealed stable hematoma with decreased midline shift of 0.7 cm - neurosurgeon saw the patient, will continue to monitor mental status, will repeat CT scan if mental status changes - Neurology saw the patient and we will monitor blood pressure and continue to have neurochek q1h - head of bed is raised > 30 degrees - Avoid heparin/any AC 2. Fall 2/2 likely alcohol intoxication: - Seizure/fall precautions 3. Alcohol Withdrawal - CIWA potocol - continuing MVI, Folic Acid, Thiamine - patient is less agitated, will decrease librium to 25Q6H, - will continue Ativan 1mg PRN 4. Hyponatremia-possibly euvolemic likely secondary to SIADH vs cerebral salt wasting - Na continued to trend down despite receiving NS IV - Nephrology saw the patient and hypertonic saline was started - will monitor BMP Q4H to prevent correcting rapidly - continue to monitor electrolytes -24 hour urine study as ordered by attending are pending 5.Hypophosphatemia secondary to poor oral intake to due to alcoholism- resolved - continue phosphate 6. Hypomagnesia secondary to poor oral intake due to alcoholism - will replete - continue to monitor 7. Hypokalemia secondary to poral oral intake due to alcoholism - continue Potassium - continue to monitor 8. Anemia- acute on chronic, normocytic - iron studies show anemia of chronic disease - Vitmain B12 and Folate was normal - patient had possible FOBT but no active GI bleed, - H/H appears stable will continue to monitor for now 9. Diarrhea -C Diff testing came back negative -patient had a bowel movement 10. Mild Transaminatis- secondary to alcohol abuse - AST trending down - continue to monitor 11. GERD: - IV Protonix 12. DVT Prophylaxis -SCD Patient reviewed and discussed with the attending <Brenda Hernandez - Last Filed: 01/22/17 06:49> Objective - Vital Signs/Intake and Output Vital Signs (last 24 hours): Temp Pulse Resp BP Pulse Ox 100.6 F H 99 H 26 H 134/68 96 01/21/17 20:00 01/22/17 03:34 01/22/17 03:34 01/22/17 03:00 01/22/17 03:00 Intake and Output: 01/21/17 01/22/17 18:59 06:59 Intake Total 1025 180 Output Total 325 280 Balance 700 -100 - Medications Medications: Current Medications Chlordiazepoxide (Librium) 25 mg PO Q8 SUMIT PRN Reason: Protocol Last Admin: 01/22/17 05:41 Dose: 25 mg Folic Acid (Folic Acid) 1 mg PO DAILY [facility] Last Admin: 01/21/17 09:05 Dose: 1 mg Gabapentin (Neurontin) 300 mg PO TID SUMIT PRN Reason: Protocol Last Admin: 01/21/17 19:26 Dose: Not Given Levetiracetam (Keppra 500mg Ivpb) 500 mg in 100 mls @ 400 mls/hr IVPB Q12 SUMIT Last Admin: 01/21/17 21:54 Dose: 400 mls/hr Acetaminophen (Ofirmev) 1,000 mg in 100 mls @ 400 mls/hr IVPB Q6H PRN PRN Reason: Temperature Stop: 01/23/17 09:17 Last Admin: 01/21/17 18:55 Dose: 400 mls/hr Sodium Chloride (Hypertonic Saline 3%) 500 mls @ 20 mls/hr IV .Q24H SUMIT Last Admin: 01/21/17 11:09 Dose: 20 mls/hr Lorazepam (Ativan) 1 mg IVP Q6H PRN; Protocol PRN Reason: Symptoms of alcohol withdrawl Last Admin: 01/21/17 21:27 Dose: 1 mg Multivitamins/Minerals (Therapeutic-M Tab) 1 tab PO 0800 [facility] Last Admin: 01/21/17 08:05 Dose: 1 tab Pantoprazole Sodium (Protonix Inj) 40 mg IVP DAILY [facility] Last Admin: 01/21/17 09:06 Dose: 40 mg Thiamine HCl (Vitamin B1 Tab) 100 mg PO DAILY [facility] Last Admin: 01/21/17 09:05 Dose: 100 mg - Labs Labs: 01/21/17 05:30 01/21/17 23:35 PT 10.5 Seconds (9.9-11.8) 01/18/17 21:26 INR 0.97 (0.93-1.08) 01/18/17 21:26 APTT 29.5 Seconds (23.7-30.8) 01/18/17 21:26 Attending/Attestation - Attestation I have personally seen and examined this patient.: Yes I have fully participated in the care of the patient.: Yes I have reviewed all pertinent clinical information, including history, physical exam and plan: Yes Notes (Text): 01/21/17 66 year old male with past medical history of chronic ETOH abuse who presented s /p fall secondary to alcohol intoxication. He was found to have subdural hemorrhage and admitted to the ICU. Neurology and neurosurgery are following the patient. Continue with serial neurochecks. Repeat CT head showed stable findings. He is on ativan prn and tapering librium for acute alcohol withdrawal. He is on multivitamin, folic acid and thiamine. Nephrology is following for hyponatremia. He is started on hypertonic saline today. Noted to have fever this morning. Septic workup is ordered. Will monitor. Repeat stool for cdiff is ordered as he was having diarrhea prior. Will replete and repeat lytes. Brenda Hernandez MD Hospitalist.
--- NOTE | 2017-01-21 11:36 | RAD ---
HISTORY: Fever of unknown origin COMPARISON: 10/29/2016 FINDINGS: LUNGS: No active pulmonary disease. PLEURA: No significant pleural effusion identified, no pneumothorax apparent. CARDIOVASCULAR: Normal. OSSEOUS STRUCTURES: No significant abnormalities. VISUALIZED UPPER ABDOMEN: Normal. OTHER FINDINGS: None. IMPRESSION: No active disease.
--- NOTE | 2017-01-21 11:56 | CP.CCUPN ---
<LIO PHAM - Last Filed: 01/21/17 11:42> CCU Subjective - Physician Review Subjective (Free Text): 01/21/17 11:43 Patient seen and assessed at bedside. Through slip injector and applicator, patient reports that he has some pain with deep breathing. He denies cough, headache, abdominal pain , and N/V. The rest of his ROS was unobtainable as patient then refused to answer questions while stating "that is enough". No acute overnight events were reported by nursing staff. CCU Objective - Vital Signs / Intake & Output Vital Signs (Last 4 hours): Vital Signs Pulse Resp BP 01/21/17 11:00 107 H 32 H 144/79 01/21/17 10:00 104 H 48 H 152/78 H 01/21/17 09:20 25 H 01/21/17 09:00 114 H 42 H 135/95 H 01/21/17 08:00 102 H 28 H 140/84 Intake and Output (Last 8hrs): Intake & Output 01/20/17 01/21/17 01/21/17 22:59 06:59 14:59 Intake Total 1570 Output Total 500 350 Balance 1070 -350 Weight 122 lb 4 oz Intake: IV 1450 Left External Jugular 1450 Oral 120 Output: Urine 500 350 Urethral (Gordon) 500 350 Other: Voiding Method Incontinent # Bowel Movements 1 1 - Physical Exam Physical Exam Limitations: Positive for: Altered Mental Status Head: Positive for: Normocephalic. Negative for: Atraumatic (nasal bone displaced- well healed) Pupils: Positive for: PERRL (unable to assess) Extroacular Muscles: Negative for: EOMI (unable to assess) Conjunctiva: Positive for: Normal (unable to assess) Ears: Positive for: Normal Mouth: Positive for: Dry Nose (External): Negative for: Atraumatic (nasal bone displaced) Neck: Positive for: Normal Range of Motion Respiratory/Chest: Positive for: Clear to Auscultation. Negative for: Good Air Exchange (shallow breathing pattern), Respiratory Distress, Accessory Muscle Use Cardiovascular: Positive for: Regular Rate and Rhythm, Normal S1, S2. Negative for: Murmurs Abdomen: Positive for: Normal Bowel Sounds. Negative for: Tenderness, Distention, Peritoneal Signs Back: Positive for: Normal Inspection Upper Extremity: Positive for: Normal Inspection. Negative for: Cyanosis, Edema Lower Extremity: Positive for: Normal Inspection. Negative for: Edema Neurological: Negative for: GCS=15 (unable to assess), CN II-XII Intact (unable to assess), Speech Normal (unable to assess) Skin: Positive for: Warm, Dry, Normal Color. Negative for: Rashes Psychiatric: Positive for: Alert. Negative for: Oriented x 3 (Oriented to person and place), Normal Insight, Normal Concentration - Medications Active Medications: Active Medications Generic Name Dose Route Start Last Admin Trade Name Freq PRN Reason Stop Dose Admin Chlordiazepoxide 25 mg 01/21/17 09:10 Librium PO Q8 PRN Symptoms of alcohol withdrawl Protocol Chlordiazepoxide 25 mg 01/21/17 12:00 Librium PO Q6 SUMIT Protocol Folic Acid 1 mg 01/20/17 10:00 01/21/17 09:05 Folic Acid PO 1 mg DAILY SUMIT Administration Gabapentin 300 mg 01/19/17 18:00 01/21/17 09:05 Neurontin PO 300 mg TID SUMIT Administration Protocol Levetiracetam 500 mg in 100 mls @ 400 mls/hr 01/19/17 22:00 01/21/17 09:06 Keppra 500mg Ivpb IVPB 400 mls/hr Q12 SUMIT Administration Acetaminophen 1,000 mg in 100 mls @ 400 mls/hr 01/21/17 09:16 01/21/17 09:35 Ofirmev IVPB 01/23/17 09:17 400 mls/hr Q6H PRN Administration Temperature Sodium Chloride 500 mls @ 20 mls/hr 01/21/17 10:30 01/21/17 11:09 Hypertonic Saline 3% IV 20 mls/hr .Q24H SUMIT Administration Lorazepam 1 mg 01/21/17 07:14 01/21/17 09:20 Ativan IVP 1 mg Q6H PRN Administration Symptoms of alcohol withdrawl Protocol Multivitamins/Minerals 1 tab 01/21/17 08:00 01/21/17 08:05 Therapeutic-M Tab PO 1 tab 0800 SUMIT Administration Pantoprazole Sodium 40 mg 01/19/17 10:00 01/21/17 09:06 Protonix Inj IVP 40 mg DAILY SUMIT Administration Potassium Chloride 40 meq 01/21/17 09:00 01/21/17 09:26 K-Dur 20 Meq Er Tab PO 01/21/17 12:01 40 meq Q3 SUMIT Administration Thiamine HCl 100 mg 01/20/17 10:00 01/21/17 09:05 Vitamin B1 Tab PO 100 mg DAILY SUMIT Administration - Patient Studies Lab Studies: Microbiology Studies 01/20/17 08:47 C. difficile Antigen & Toxin A,B (M - Final Stool 01/19/17 04:15 MRSA Culture (Admit) - Final Naris MRSA NOT DETECTED Lab Studies 01/21/17 01/21/17 01/20/17 Range/Units 05:30 05:30 12:08 WBC 6.4 (4.5-11.0) 10^3/ul RBC 3.54 (3.5-6.1) 10^6/uL Hgb 10.6 L (14.0-18.0) g/dL Hct 31.4 L (42.0-52.0) % MCV 88.7 (80.0-105.0) fl MCH 29.9 (25.0-35.0) pg MCHC 33.8 (31.0-37.0) g/dl RDW 14.6 H (11.5-14.5) % Plt Count 144 (120.0-450.0) 10^3/uL MPV 9.4 (7.0-11.0) fl Gran % 68.4 H (50.0-68.0) % Lymph % (Auto) 15.5 L (22.0-35.0) % [place] % (Auto) 15.4 H (1.0-6.0) % Eos % (Auto) 0.5 L (1.5-5.0) % Baso % (Auto) 0.2 (0.0-3.0) % Gran # 4.36 (1.4-6.5) Lymph # 1.0 L (1.2-3.4) [place] # 1.0 H (0.1-0.6) Eos # 0.0 (0.0-0.7) Baso # 0.01 (0.0-2.0) K/mm3 Sodium 125 L (132-148) mmol/L Potassium 3.2 L (3.6-5.0) mmol/L Chloride 89 L (98-107) mmol/L Carbon Dioxide 21 (21-33) mmol/L Anion Gap 18 (10-20) BUN 5 L (7-21) mg/dL Creatinine 0.5 (0.5-1.4) mg/dL Est GFR ( Amer) > 60 Est GFR (Non-Af Amer) > 60 Random Glucose 85 (70-110) mg/dL Serum Osmolality (271-296) mosm/kg Uric Acid (3.5-8.5) mg/dL Calcium 8.4 (8.4-10.5) mg/dL Phosphorus 2.5 (2.5-4.5) mg/dL Magnesium 1.6 L (1.7-2.2) mg/dL Ferritin ng/mL Total Bilirubin 1.6 H (0.2-1.3) mg/dL AST 74 H (17-59) U/L ALT 45 (7-56) U/L Alkaline Phosphatase 90 (38-126) U/L Total Protein 7.3 (5.8-8.3) g/dL Albumin 4.1 (3.0-4.8) g/dL Globulin 3.2 gm/dL Albumin/Globulin Ratio 1.3 (1.1-1.8) Vitamin B12 (239-931) pg/mL Folate ng/mL TSH 3rd Generation 1.33 (0.46-4.68) mIU/mL Urine Color (YELLOW) Urine Appearance (CLEAR) Urine pH (4.7-8.0) Ur Specific [place] (1.005-1.035) Urine Protein (<30 mg/dL) mg/dL Urine Glucose (UA) (NEGATIVE) mg/dL Urine Ketones (NEGATIVE) mg/dL Urine Blood (NEGATIVE) Urine Nitrate (NEGATIVE) Urine Bilirubin (NEGATIVE) Urine Urobilinogen (<1 E.U./dL) E.U./dL Ur Leukocyte Esterase (NEGATIVE) Gely/uL Urine Osmolality (50-645) mosm/kg Ur Random Sodium meq/L Ur Random Potassium meq/L 01/20/17 01/20/17 01/20/17 Range/Units 12:08 09:38 09:38 WBC (4.5-11.0) 10^3/ul RBC (3.5-6.1) 10^6/uL Hgb (14.0-18.0) g/dL Hct (42.0-52.0) % MCV (80.0-105.0) fl MCH (25.0-35.0) pg MCHC (31.0-37.0) g/dl RDW (11.5-14.5) % Plt Count (120.0-450.0) 10^3/uL MPV (7.0-11.0) fl Gran % (50.0-68.0) % Lymph % (Auto) (22.0-35.0) % [place] % (Auto) (1.0-6.0) % Eos % (Auto) (1.5-5.0) % Baso % (Auto) (0.0-3.0) % Gran # (1.4-6.5) Lymph # (1.2-3.4) [place] # (0.1-0.6) Eos # (0.0-0.7) Baso # (0.0-2.0) K/mm3 Sodium (132-148) mmol/L Potassium (3.6-5.0) mmol/L Chloride (98-107) mmol/L Carbon Dioxide (21-33) mmol/L Anion Gap (10-20) BUN (7-21) mg/dL Creatinine (0.5-1.4) mg/dL Est GFR ( Amer) Est GFR (Non-Af Amer) Random Glucose (70-110) mg/dL Serum Osmolality (271-296) mosm/kg Uric Acid 2.3 L (3.5-8.5) mg/dL Calcium (8.4-10.5) mg/dL Phosphorus (2.5-4.5) mg/dL Magnesium (1.7-2.2) mg/dL Ferritin ng/mL Total Bilirubin (0.2-1.3) mg/dL AST (17-59) U/L ALT (7-56) U/L Alkaline Phosphatase (38-126) U/L Total Protein (5.8-8.3) g/dL Albumin (3.0-4.8) g/dL Globulin gm/dL Albumin/Globulin Ratio (1.1-1.8) Vitamin B12 (239-931) pg/mL Folate ng/mL TSH 3rd Generation (0.46-4.68) mIU/mL Urine Color Yellow (YELLOW) Urine Appearance Clear (CLEAR) Urine pH 6.5 (4.7-8.0) Ur Specific [place] 1.020 (1.005-1.035) Urine Protein Negative (<30 mg/dL) mg/dL Urine Glucose (UA) Negative (NEGATIVE) mg/dL Urine Ketones 40 H (NEGATIVE) mg/dL Urine Blood Negative (NEGATIVE) Urine Nitrate Negative (NEGATIVE) Urine Bilirubin Negative (NEGATIVE) Urine Urobilinogen 2.0 H (<1 E.U./dL) E.U./dL Ur Leukocyte Esterase Negative (NEGATIVE) Gely/uL Urine Osmolality 589 (50-645) mosm/kg Ur Random Sodium 204 meq/L Ur Random Potassium 30.3 meq/L 01/20/17 01/20/17 Range/Units 09:38 08:36 WBC (4.5-11.0) 10^3/ul RBC (3.5-6.1) 10^6/uL Hgb (14.0-18.0) g/dL Hct (42.0-52.0) % MCV (80.0-105.0) fl MCH (25.0-35.0) pg MCHC (31.0-37.0) g/dl RDW (11.5-14.5) % Plt Count (120.0-450.0) 10^3/uL MPV (7.0-11.0) fl Gran % (50.0-68.0) % Lymph % (Auto) (22.0-35.0) % [place] % (Auto) (1.0-6.0) % Eos % (Auto) (1.5-5.0) % Baso % (Auto) (0.0-3.0) % Gran # (1.4-6.5) Lymph # (1.2-3.4) [place] # (0.1-0.6) Eos # (0.0-0.7) Baso # (0.0-2.0) K/mm3 Sodium (132-148) mmol/L Potassium (3.6-5.0) mmol/L Chloride (98-107) mmol/L Carbon Dioxide (21-33) mmol/L Anion Gap (10-20) BUN (7-21) mg/dL Creatinine (0.5-1.4) mg/dL Est GFR ( Amer) Est GFR (Non-Af Amer) Random Glucose (70-110) mg/dL Serum Osmolality 260 L (271-296) mosm/kg Uric Acid (3.5-8.5) mg/dL Calcium (8.4-10.5) mg/dL Phosphorus (2.5-4.5) mg/dL Magnesium (1.7-2.2) mg/dL Ferritin 226.0 ng/mL Total Bilirubin (0.2-1.3) mg/dL AST (17-59) U/L ALT (7-56) U/L Alkaline Phosphatase (38-126) U/L Total Protein (5.8-8.3) g/dL Albumin (3.0-4.8) g/dL Globulin gm/dL Albumin/Globulin Ratio (1.1-1.8) Vitamin B12 675 (239-931) pg/mL Folate > 20.0 ng/mL TSH 3rd Generation (0.46-4.68) mIU/mL Urine Color (YELLOW) Urine Appearance (CLEAR) Urine pH (4.7-8.0) Ur Specific [place] (1.005-1.035) Urine Protein (<30 mg/dL) mg/dL Urine Glucose (UA) (NEGATIVE) mg/dL Urine Ketones (NEGATIVE) mg/dL Urine Blood (NEGATIVE) Urine Nitrate (NEGATIVE) Urine Bilirubin (NEGATIVE) Urine Urobilinogen (<1 E.U./dL) E.U./dL Ur Leukocyte Esterase (NEGATIVE) Gely/uL Urine Osmolality (50-645) mosm/kg Ur Random Sodium meq/L Ur Random Potassium meq/L Laboratory Results - last 24 hr 01/20/17 01/20/17 01/20/17 08:36 09:38 09:38 WBC RBC Hgb Hct MCV MCH MCHC RDW Plt Count MPV Gran % Lymph % (Auto) [place] % (Auto) Eos % (Auto) Baso % (Auto) Gran # Lymph # [place] # Eos # Baso # Sodium Potassium Chloride Carbon Dioxide Anion Gap BUN Creatinine Est GFR ( Amer) Est GFR (Non-Af Amer) Random Glucose Serum Osmolality 260 L Uric Acid Calcium Phosphorus Magnesium Ferritin 226.0 Total Bilirubin AST ALT Alkaline Phosphatase Total Protein Albumin Globulin Albumin/Globulin Ratio Vitamin B12 675 Folate > 20.0 TSH 3rd Generation Urine Color Urine Appearance Urine pH Ur Specific [place] Urine Protein Urine Glucose (UA) Urine Ketones Urine Blood Urine Nitrate Urine Bilirubin Urine Urobilinogen Ur Leukocyte Esterase Urine Osmolality 589 Ur Random Sodium 204 Ur Random Potassium 30.3 01/20/17 01/20/17 01/20/17 09:38 12:08 12:08 WBC RBC Hgb Hct MCV MCH MCHC RDW Plt Count MPV Gran % Lymph % (Auto) [place] % (Auto) Eos % (Auto) Baso % (Auto) Gran # Lymph # [place] # Eos # Baso # Sodium Potassium Chloride Carbon Dioxide Anion Gap BUN Creatinine Est GFR ( Amer) Est GFR (Non-Af Amer) Random Glucose Serum Osmolality Uric Acid 2.3 L Calcium Phosphorus Magnesium Ferritin Total Bilirubin AST ALT Alkaline Phosphatase Total Protein Albumin Globulin Albumin/Globulin Ratio Vitamin B12 Folate TSH 3rd Generation 1.33 Urine Color Yellow Urine Appearance Clear Urine pH 6.5 Ur Specific [place] 1.020 Urine Protein Negative Urine Glucose (UA) Negative Urine Ketones 40 H Urine Blood Negative Urine Nitrate Negative Urine Bilirubin Negative Urine Urobilinogen 2.0 H Ur Leukocyte Esterase Negative Urine Osmolality Ur Random Sodium Ur Random Potassium 01/21/17 01/21/17 05:30 05:30 WBC 6.4 RBC 3.54 Hgb 10.6 L Hct 31.4 L MCV 88.7 MCH 29.9 MCHC 33.8 RDW 14.6 H Plt Count 144 MPV 9.4 Gran % 68.4 H Lymph % (Auto) 15.5 L [place] % (Auto) 15.4 H Eos % (Auto) 0.5 L Baso % (Auto) 0.2 Gran # 4.36 Lymph # 1.0 L [place] # 1.0 H Eos # 0.0 Baso # 0.01 Sodium 125 L Potassium 3.2 L Chloride 89 L Carbon Dioxide 21 Anion Gap 18 BUN 5 L Creatinine 0.5 Est GFR ( Amer) > 60 Est GFR (Non-Af Amer) > 60 Random Glucose 85 Serum Osmolality Uric Acid Calcium 8.4 Phosphorus 2.5 Magnesium 1.6 L Ferritin Total Bilirubin 1.6 H AST 74 H ALT 45 Alkaline Phosphatase 90 Total Protein 7.3 Albumin 4.1 Globulin 3.2 Albumin/Globulin Ratio 1.3 Vitamin B12 Folate TSH 3rd Generation Urine Color Urine Appearance Urine pH Ur Specific [place] Urine Protein Urine Glucose (UA) Urine Ketones Urine Blood Urine Nitrate Urine Bilirubin Urine Urobilinogen Ur Leukocyte Esterase Urine Osmolality Ur Random Sodium Ur Random Potassium Fingerstick Blood Sugar Results: 117 Review of Systems - Review of Systems Review of Systems: Please refer to [facility] Critical Care Progress Note - Ventilator Checklist Head of Bed 30 Degrees: Yes PUD Prophalyxis: Yes DVT Prophylaxis: Yes - Extremities/Vascular Does the Patient have a Central Venous Catheter?: No Does the Patient have a Gordon Catheter?: Yes - Restraints Justification for Restraints: High risk for removing IV access - Prophylaxis GI Prophylaxis GI: PPI - Prophylaxis DVT Prophylaxis DVT: SCDs - Nutrition Nutrition: Nutrition Category Date Time Status Dysphagia/Modified Consistency Diet [DIET] Diets 01/20/17 Dinner Ordered Assessment/Plan - Assessment and Plan (Free Text) Assessment: 66 year old male with past medical history of chronic alcohol abuse who presented s/p fall secondary to alcohol intoxication. He was found to have subdural hemorrhage and admitted to the ICU. Neurology and neurosurgery are following the patient. Plan: Neuro: -Initial CT head showed acute 11.2 mm subdural hemorrhage within left cerebral hemishphere and right frontal region with a midline shift of 10.6 mm from left to right. -Most recent repeat CT head was done and the midline shift decreased to 7.0mm. -Continue Keppra and Neurontin -Continue Q2H neuro-checks, avoid hypertension, fever, hyperglycemia, and hyponatremia -Most recent CIWA score: 13 -Tapered librium dosage from 50mg Q8H to 25mg Q8H -Tapered Ativan dosage from 1mg Q2H to 1mg Q6H -Continue folic acid, thiamine, and MV supplementation -Continue CIWA protocol, fall, seizure and aspiration precautions -Neurology and Neurosurgery consulted, appreciate all recommendations Cardio: -Maintain HDS -Continue to monitor for tachycardia and hypertension Pulm: -Chest X-Ray pending -Currently stable oxygen saturation with minimal tachypnea on room air -Will continue to monitor GI: -Swallow evaluation recommended pureed, thin liquids diet with crushed medications -C. Diff toxin/antigen negative -Previous uptrending LFT's are now downtrending -Continue with protonix for GI prophylaxis Renal: -Worsening hyponatremia with Na at 125 from 127, despite NS administration -Uosm, Urine Electrolytes WNL and Sosm low at 260 -Repeat urine electrolytes and 24 hour urine creatinine pending -Started hypertonic saline at 20mls/hr and will recheck BMP at 1800 on 01/21 -Hypokalemia with K+ 3.2 from 3.3, despite repleting -Started K-Dur 40meq PO, will give two doses and check repeat BMP -Hypomagnesemia with Mg 1.6 from 1.6, despite repleting -Started 2g Magnesium Sulfate IV -Continue Gordon catheter to measure I/O's -Nephrology consulted, appreciate all recommendations Heme/Onc: -H/H stable at 10.6/31.4 -FOBT positive -All anemia workup has been negative other than an isolated low TIBC -Platelets at 144 ID: -Reported fever of 101.9 at 1000 on 01/21, repeat temp after 1g IV tylenol was 100.9 -Currently meeting SIRS criteria with tachycardia to 110's, tachypnea and febrile to 101.9 -Leukocytosis resolved and at 6.4 -Blood culture, Chest X-Ray and UA pending -Will continue to monitor clinically and correlate with previously mentioned pending studies GI Prophylaxis: Protonix DVT Prophylaxis: SCD's (in setting of acute intracranial hemorrhage) Disposition: Continuation of monitoring for AMS, DT's and alcohol withdrawal as well as monitoring of electrolyte abnormalities. Patient seen and case discussed with attending, Dr. Mooney. - Date & Time Date: 01/21/17 Time: 11:58 <Kaiser Mooney - Last Filed: 01/21/17 13:11> CCU Objective - Vital Signs / Intake & Output Vital Signs (Last 4 hours): Vital Signs Temp Pulse Resp BP 01/21/17 11:56 100.9 F H 01/21/17 11:00 101.4 F H 107 H 32 H 144/79 01/21/17 10:00 101.9 F H 104 H 48 H 152/78 H 01/21/17 09:20 25 H Intake and Output (Last 8hrs): Intake & Output 01/20/17 01/21/17 01/21/17 22:59 06:59 14:59 Intake Total 1570 Output Total 500 350 Balance 1070 -350 Weight 122 lb 4 oz Intake: IV 1450 Left External Jugular 1450 Oral 120 Output: Urine 500 350 Urethral (Gordon) 500 350 Other: Voiding Method Incontinent Incontinent # Bowel Movements 1 1 - Medications Active Medications: Active Medications Generic Name Dose Route Start Last Admin Trade Name Freq PRN Reason Stop Dose Admin Chlordiazepoxide 25 mg 01/21/17 09:10 Librium PO Q8 PRN Symptoms of alcohol withdrawl Protocol Chlordiazepoxide 25 mg 01/21/17 12:00 Librium PO Q6 SUMIT Protocol Folic Acid 1 mg 01/20/17 10:00 01/21/17 09:05 Folic Acid PO 1 mg DAILY SUMIT Administration Gabapentin 300 mg 01/19/17 18:00 01/21/17 09:05 Neurontin PO 300 mg TID SUMIT Administration Protocol Levetiracetam 500 mg in 100 mls @ 400 mls/hr 01/19/17 22:00 01/21/17 09:06 Keppra 500mg Ivpb IVPB 400 mls/hr Q12 SUMIT Administration Acetaminophen 1,000 mg in 100 mls @ 400 mls/hr 01/21/17 09:16 01/21/17 09:35 Ofirmev IVPB 01/23/17 09:17 400 mls/hr Q6H PRN Administration Temperature Sodium Chloride 500 mls @ 20 mls/hr 01/21/17 10:30 01/21/17 11:09 Hypertonic Saline 3% IV 20 mls/hr .Q24H SUMIT Administration Potassium Chloride 20 meq in 100 mls @ 50 mls/hr 01/21/17 12:55 Potassium Chloride 20 Meq/100 Ml IVPB 01/21/17 14:54 ONCE ONE Lorazepam 1 mg 01/21/17 07:14 01/21/17 09:20 Ativan IVP 1 mg Q6H PRN Administration Symptoms of alcohol withdrawl Protocol Multivitamins/Minerals 1 tab 01/21/17 08:00 01/21/17 08:05 Therapeutic-M Tab PO 1 tab 0800 SUMIT Administration Pantoprazole Sodium 40 mg 01/19/17 10:00 01/21/17 09:06 Protonix Inj IVP 40 mg DAILY SUMIT Administration Thiamine HCl 100 mg 01/20/17 10:00 01/21/17 09:05 Vitamin B1 Tab PO 100 mg DAILY SUMIT Administration - Patient Studies Lab Studies: Microbiology Studies 01/20/17 08:47 C. difficile Antigen & Toxin A,B (M - Final Stool 01/19/17 04:15 MRSA Culture (Admit) - Final Naris MRSA NOT DETECTED Lab Studies 01/21/17 01/21/17 01/21/17 Range/Units 11:50 11:50 05:30 WBC (4.5-11.0) 10^3/ul RBC (3.5-6.1) 10^6/uL Hgb (14.0-18.0) g/dL Hct (42.0-52.0) % MCV (80.0-105.0) fl MCH (25.0-35.0) pg MCHC (31.0-37.0) g/dl RDW (11.5-14.5) % Plt Count (120.0-450.0) 10^3/uL MPV (7.0-11.0) fl Gran % (50.0-68.0) % Lymph % (Auto) (22.0-35.0) % [place] % (Auto) (1.0-6.0) % Eos % (Auto) (1.5-5.0) % Baso % (Auto) (0.0-3.0) % Gran # (1.4-6.5) Lymph # (1.2-3.4) [place] # (0.1-0.6) Eos # (0.0-0.7) Baso # (0.0-2.0) K/mm3 Sodium 125 L (132-148) mmol/L Potassium 3.2 L (3.6-5.0) mmol/L Chloride 89 L (98-107) mmol/L Carbon Dioxide 21 (21-33) mmol/L Anion Gap 18 (10-20) BUN 5 L (7-21) mg/dL Creatinine 0.5 (0.5-1.4) mg/dL Est GFR ( Amer) > 60 Est GFR (Non-Af Amer) > 60 Random Glucose 85 (70-110) mg/dL Serum Osmolality (271-296) mosm/kg Calcium 8.4 (8.4-10.5) mg/dL Phosphorus 2.5 (2.5-4.5) mg/dL Magnesium 1.6 L (1.7-2.2) mg/dL Total Bilirubin 1.6 H (0.2-1.3) mg/dL AST 74 H (17-59) U/L ALT 45 (7-56) U/L Alkaline Phosphatase 90 (38-126) U/L Total Protein 7.3 (5.8-8.3) g/dL Albumin 4.1 (3.0-4.8) g/dL Globulin 3.2 gm/dL Albumin/Globulin Ratio 1.3 (1.1-1.8) TSH 3rd Generation (0.46-4.68) mIU/mL Urine Color Yellow (YELLOW) Urine Appearance Clear (CLEAR) Urine pH 5.5 (4.7-8.0) Ur Specific [place] <= 1.005 (1.005-1.035) Urine Protein Negative (<30 mg/dL) mg/dL Urine Glucose (UA) Negative (NEGATIVE) mg/dL Urine Ketones Negative (NEGATIVE) mg/dL Urine Blood Negative (NEGATIVE) Urine Nitrate Negative (NEGATIVE) Urine Bilirubin Negative (NEGATIVE) Urine Urobilinogen 0.2 (<1 E.U./dL) E.U./dL Ur Leukocyte Esterase Negative (NEGATIVE) Gely/uL Urine Osmolality 53 (50-645) mosm/kg 01/21/17 01/20/17 01/20/17 Range/Units 05:30 12:08 09:38 WBC 6.4 (4.5-11.0) 10^3/ul RBC 3.54 (3.5-6.1) 10^6/uL Hgb 10.6 L (14.0-18.0) g/dL Hct 31.4 L (42.0-52.0) % MCV 88.7 (80.0-105.0) fl MCH 29.9 (25.0-35.0) pg MCHC 33.8 (31.0-37.0) g/dl RDW 14.6 H (11.5-14.5) % Plt Count 144 (120.0-450.0) 10^3/uL MPV 9.4 (7.0-11.0) fl Gran % 68.4 H (50.0-68.0) % Lymph % (Auto) 15.5 L (22.0-35.0) % [place] % (Auto) 15.4 H (1.0-6.0) % Eos % (Auto) 0.5 L (1.5-5.0) % Baso % (Auto) 0.2 (0.0-3.0) % Gran # 4.36 (1.4-6.5) Lymph # 1.0 L (1.2-3.4) [place] # 1.0 H (0.1-0.6) Eos # 0.0 (0.0-0.7) Baso # 0.01 (0.0-2.0) K/mm3 Sodium (132-148) mmol/L Potassium (3.6-5.0) mmol/L Chloride (98-107) mmol/L Carbon Dioxide (21-33) mmol/L Anion Gap (10-20) BUN (7-21) mg/dL Creatinine (0.5-1.4) mg/dL Est GFR ( Amer) Est GFR (Non-Af Amer) Random Glucose (70-110) mg/dL Serum Osmolality (271-296) mosm/kg Calcium (8.4-10.5) mg/dL Phosphorus (2.5-4.5) mg/dL Magnesium (1.7-2.2) mg/dL Total Bilirubin (0.2-1.3) mg/dL AST (17-59) U/L ALT (7-56) U/L Alkaline Phosphatase (38-126) U/L Total Protein (5.8-8.3) g/dL Albumin (3.0-4.8) g/dL Globulin gm/dL Albumin/Globulin Ratio (1.1-1.8) TSH 3rd Generation 1.33 (0.46-4.68) mIU/mL Urine Color (YELLOW) Urine Appearance (CLEAR) Urine pH (4.7-8.0) Ur Specific [place] (1.005-1.035) Urine Protein (<30 mg/dL) mg/dL Urine Glucose (UA) (NEGATIVE) mg/dL Urine Ketones (NEGATIVE) mg/dL Urine Blood (NEGATIVE) Urine Nitrate (NEGATIVE) Urine Bilirubin (NEGATIVE) Urine Urobilinogen (<1 E.U./dL) E.U./dL Ur Leukocyte Esterase (NEGATIVE) Gely/uL Urine Osmolality 589 (50-645) mosm/kg 01/20/17 Range/Units 09:38 WBC (4.5-11.0) 10^3/ul RBC (3.5-6.1) 10^6/uL Hgb (14.0-18.0) g/dL Hct (42.0-52.0) % MCV (80.0-105.0) fl MCH (25.0-35.0) pg MCHC (31.0-37.0) g/dl RDW (11.5-14.5) % Plt Count (120.0-450.0) 10^3/uL MPV (7.0-11.0) fl Gran % (50.0-68.0) % Lymph % (Auto) (22.0-35.0) % [place] % (Auto) (1.0-6.0) % Eos % (Auto) (1.5-5.0) % Baso % (Auto) (0.0-3.0) % Gran # (1.4-6.5) Lymph # (1.2-3.4) [place] # (0.1-0.6) Eos # (0.0-0.7) Baso # (0.0-2.0) K/mm3 Sodium (132-148) mmol/L Potassium (3.6-5.0) mmol/L Chloride (98-107) mmol/L Carbon Dioxide (21-33) mmol/L Anion Gap (10-20) BUN (7-21) mg/dL Creatinine (0.5-1.4) mg/dL Est GFR ( Amer) Est GFR (Non-Af Amer) Random Glucose (70-110) mg/dL Serum Osmolality 260 L (271-296) mosm/kg Calcium (8.4-10.5) mg/dL Phosphorus (2.5-4.5) mg/dL Magnesium (1.7-2.2) mg/dL Total Bilirubin (0.2-1.3) mg/dL AST (17-59) U/L ALT (7-56) U/L Alkaline Phosphatase (38-126) U/L Total Protein (5.8-8.3) g/dL Albumin (3.0-4.8) g/dL Globulin gm/dL Albumin/Globulin Ratio (1.1-1.8) TSH 3rd Generation (0.46-4.68) mIU/mL Urine Color (YELLOW) Urine Appearance (CLEAR) Urine pH (4.7-8.0) Ur Specific [place] (1.005-1.035) Urine Protein (<30 mg/dL) mg/dL Urine Glucose (UA) (NEGATIVE) mg/dL Urine Ketones (NEGATIVE) mg/dL Urine Blood (NEGATIVE) Urine Nitrate (NEGATIVE) Urine Bilirubin (NEGATIVE) Urine Urobilinogen (<1 E.U./dL) E.U./dL Ur Leukocyte Esterase (NEGATIVE) Gely/uL Urine Osmolality (50-645) mosm/kg Laboratory Results - last 24 hr 01/20/17 01/20/17 01/20/17 09:38 09:38 12:08 WBC RBC Hgb Hct MCV MCH MCHC RDW Plt Count MPV Gran % Lymph % (Auto) [place] % (Auto) Eos % (Auto) Baso % (Auto) Gran # Lymph # [place] # Eos # Baso # Sodium Potassium Chloride Carbon Dioxide Anion Gap BUN Creatinine Est GFR ( Amer) Est GFR (Non-Af Amer) Random Glucose Serum Osmolality 260 L Calcium Phosphorus Magnesium Total Bilirubin AST ALT Alkaline Phosphatase Total Protein Albumin Globulin Albumin/Globulin Ratio TSH 3rd Generation 1.33 Urine Color Urine Appearance Urine pH Ur Specific [place] Urine Protein Urine Glucose (UA) Urine Ketones Urine Blood Urine Nitrate Urine Bilirubin Urine Urobilinogen Ur Leukocyte Esterase Urine Osmolality 589 01/21/17 01/21/17 01/21/17 05:30 05:30 11:50 WBC 6.4 RBC 3.54 Hgb 10.6 L Hct 31.4 L MCV 88.7 MCH 29.9 MCHC 33.8 RDW 14.6 H Plt Count 144 MPV 9.4 Gran % 68.4 H Lymph % (Auto) 15.5 L [place] % (Auto) 15.4 H Eos % (Auto) 0.5 L Baso % (Auto) 0.2 Gran # 4.36 Lymph # 1.0 L [place] # 1.0 H Eos # 0.0 Baso # 0.01 Sodium 125 L Potassium 3.2 L Chloride 89 L Carbon Dioxide 21 Anion Gap 18 BUN 5 L Creatinine 0.5 Est GFR ( Amer) > 60 Est GFR (Non-Af Amer) > 60 Random Glucose 85 Serum Osmolality Calcium 8.4 Phosphorus 2.5 Magnesium 1.6 L Total Bilirubin 1.6 H AST 74 H ALT 45 Alkaline Phosphatase 90 Total Protein 7.3 Albumin 4.1 Globulin 3.2 Albumin/Globulin Ratio 1.3 TSH 3rd Generation Urine Color Urine Appearance Urine pH Ur Specific [place] Urine Protein Urine Glucose (UA) Urine Ketones Urine Blood Urine Nitrate Urine Bilirubin Urine Urobilinogen Ur Leukocyte Esterase Urine Osmolality 53 01/21/17 11:50 WBC RBC Hgb Hct MCV MCH MCHC RDW Plt Count MPV Gran % Lymph % (Auto) [place] % (Auto) Eos % (Auto) Baso % (Auto) Gran # Lymph # [place] # Eos # Baso # Sodium Potassium Chloride Carbon Dioxide Anion Gap BUN Creatinine Est GFR ( Amer) Est GFR (Non-Af Amer) Random Glucose Serum Osmolality Calcium Phosphorus Magnesium Total Bilirubin AST ALT Alkaline Phosphatase Total Protein Albumin Globulin Albumin/Globulin Ratio TSH 3rd Generation Urine Color Yellow Urine Appearance Clear Urine pH 5.5 Ur Specific [place] <= 1.005 Urine Protein Negative Urine Glucose (UA) Negative Urine Ketones Negative Urine Blood Negative Urine Nitrate Negative Urine Bilirubin Negative Urine Urobilinogen 0.2 Ur Leukocyte Esterase Negative Urine Osmolality Critical Care Progress Note - Nutrition Nutrition: Nutrition Category Date Time Status Dysphagia/Modified Consistency Diet [DIET] Diets 01/20/17 Dinner Ordered Assessment/Plan - Assessment and Plan (Free Text) Plan: Patient seen and examined on rounds with resident, agree with note. Patient is currently HD stable, comfortable with complaints of pleuritic chest pain. Spiked temp given, tylenol 1g, panculture, UA, CXR pending, WBC downtrending, no clinical evidence of infection otherwise. Repeat CT head done last night shows improvement in midline shift, stable SDH. Na not improving, latest 125, will start on 3% as per renal. SDH EtOh withdrawal Hyponatremia Fever Anemia Recommend: - cont wiht supp o2, monitor resp status - q2hr neuro checks - follow up NSG, neurology - avoid fever, hyperglycemia, hyponatremia - Neurontin, Keppra as per neurology - Taper Librium, Ativan 1mg Q4hr PRN - Control fever, Tylenol - Panculture - CXR, UA - check procalcitonin - monitor HH - replete eletrolytes - DVT ppx, SCDs - GI ppx, Pepcid - monitor in MICU
[2017-01-21 12:55] LABS: PH,URINE 5.5 (4.7-8.0); URINE BILIRUBIN NEGATIVE (NEGATIVE); URINE BLOOD NEGATIVE (NEGATIVE); URINE GLUCOSE (UA) NEGATIVE (NEGATIVE); URINE KETONE NEGATIVE (NEGATIVE); URINE LEUKOCYTE ESTERASE NEGATIVE Leu/uL (NEGATIVE); URINE PROTEIN NEGATIVE mg/dL (<30 mg/dL); URINE UROBILINOGEN 0.2 E.U./dL (<1 E.U./dL)
[2017-01-21 13:00] LABS: URINE APPEARANCE CLEAR (CLEAR); URINE COLOR YELLOW (YELLOW)
[2017-01-21 18:29] LABS: BLOOD UREA NITROGEN 4 mg/dL (7-21); CARBON DIOXIDE 25 mmol/L (21-33); CHLORIDE 94 mmol/L (98-107); GFR AFRICAN-AMERICAN > 60; GLUCOSE,RANDOM 94 mg/dL (70-110); POTASSIUM 3.5 mmol/L (3.6-5.0); SODIUM 127 mmol/L (132-148)
[2017-01-21] MEDS ORDERED: Potassium Chloride 40 mEq/30 ml LIQ UD PO ONE (18:35)
--- NOTE | 2017-01-21 20:00 | CP.PCM.PN ---
Subjective - Date & Time of Evaluation Date of Evaluation: 01/21/17 Time of Evaluation: 11:00 - Subjective Subjective: Patient sedated after being given ativan on becoming agitated; Objective - Vital Signs/Intake and Output Vital Signs (last 24 hours): Temp Pulse Resp BP Pulse Ox 100.9 F H 100 H 27 H 128/78 74 L 01/21/17 11:56 01/21/17 18:00 01/21/17 18:00 01/21/17 17:00 01/21/17 02:02 - Medications Medications: Current Medications Chlordiazepoxide (Librium) 25 mg PO Q8 SUMIT PRN Reason: Protocol Folic Acid (Folic Acid) 1 mg PO DAILY [facility] Last Admin: 01/21/17 09:05 Dose: 1 mg Gabapentin (Neurontin) 300 mg PO TID SUMIT PRN Reason: Protocol Last Admin: 01/21/17 19:26 Dose: Not Given Levetiracetam (Keppra 500mg Ivpb) 500 mg in 100 mls @ 400 mls/hr IVPB Q12 SUMIT Last Admin: 01/21/17 09:06 Dose: 400 mls/hr Acetaminophen (Ofirmev) 1,000 mg in 100 mls @ 400 mls/hr IVPB Q6H PRN PRN Reason: Temperature Stop: 01/23/17 09:17 Last Admin: 01/21/17 18:55 Dose: 400 mls/hr Sodium Chloride (Hypertonic Saline 3%) 500 mls @ 20 mls/hr IV .Q24H SUMIT Last Admin: 01/21/17 11:09 Dose: 20 mls/hr Lorazepam (Ativan) 1 mg IVP Q6H PRN; Protocol PRN Reason: Symptoms of alcohol withdrawl Last Admin: 01/21/17 09:20 Dose: 1 mg Multivitamins/Minerals (Therapeutic-M Tab) 1 tab PO 0800 SUMIT Last Admin: 01/21/17 08:05 Dose: 1 tab Pantoprazole Sodium (Protonix Inj) 40 mg IVP DAILY [facility] Last Admin: 01/21/17 09:06 Dose: 40 mg Thiamine HCl (Vitamin B1 Tab) 100 mg PO DAILY [facility] Last Admin: 01/21/17 09:05 Dose: 100 mg - Labs Labs: 01/21/17 05:30 01/21/17 18:13 PT 10.5 Seconds (9.9-11.8) 01/18/17 21:26 INR 0.97 (0.93-1.08) 01/18/17 21:26 APTT 29.5 Seconds (23.7-30.8) 01/18/17 21:26 - Constitutional Appears: Non-toxic, No Acute Distress - Head Exam Head Exam: NORMOCEPHALIC - Eye Exam Eye Exam: Normal appearance - ENT Exam ENT Exam: Mucous Membranes Moist - Respiratory Exam Respiratory Exam: Clear to Ausculation Bilateral. absent: Rales, Rhonchi, Wheezes - Cardiovascular Exam Cardiovascular Exam: REGULAR RHYTHM, +S1, +S2 - GI/Abdominal Exam GI & Abdominal Exam: Soft. absent: Distended - Extremities Exam Additional comments: no leg edema; - Neurological Exam Additional comments: sedated - Skin Skin Exam: Normal Color, Warm. absent: Cyanosis Assessment and Plan (1) Hyponatremia Assessment & Plan: SIADH v cerebral salt wasting; decreasing serum Na after giving NS tends to favor SIADH; also, no overt signs of volume depletion to suggest [employer]; -being started on 3% hypertonic saline at 20 cc/hr to prevent further drop in serum Na, especially in setting of subdural hematoma; will stop once serum Na in low 130's -repeat Ur Na and Osm (extremely low Ur osm seen this morning doesn't make sense clinically as serum Na continued to drop) Status: Acute (2) Subdural hematoma Assessment & Plan: Likely causing SIADH; see above; Status: Acute (3) Alcohol withdrawal Assessment & Plan: Severe; need to avoid volume depletion in setting of hyponatremia; getting hypertonic saline for now; Status: Acute (4) Hypokalemia Assessment & Plan: In the setting of ETOH abuse and decreased PO intake; continue to replenish prn; Status: Acute
[2017-01-21 23:53] LABS: BLOOD UREA NITROGEN 7 mg/dL (7-21); CALCIUM 8.5 mg/dL (8.4-10.5); CARBON DIOXIDE 25 mmol/L (21-33); CHLORIDE 96 mmol/L (98-107); GFR AFRICAN-AMERICAN > 60; GLUCOSE,RANDOM 153 mg/dL (70-110); POTASSIUM 4.2 mmol/L (3.6-5.0); SODIUM 129 mmol/L (132-148)
[2017-01-22] MEDS: Multivitamin With Minerals Tab PO SCH (08:00)
--- NOTE | 2017-01-22 08:56 | CT ---
PROCEDURE: CT HEAD WITHOUT CONTRAST. HISTORY: follow up COMPARISON: 01/20/2017 TECHNIQUE: Axial computed tomography images were obtained through the head/brain without intravenous contrast. Radiation dose: Total exam DLP = 859 mGy-cm. This CT exam was performed using one or more of the following dose reduction techniques: Automated exposure control, adjustment of the mA and/or kV according to patient size, and/or use of iterative reconstruction technique. FINDINGS: HEMORRHAGE: Bilateral subdural hematomas are seen over both cerebral convexities left greater than right and on both sides of the falx. The maximal thickness of the left-sided subdural is 11 mm the right side measures 6 mm in its thickest portion. BRAIN: There is 7 mm of midline shift to the right. Areas of encephalomalacia are seen anteriorly in the frontal white matter. There is an area of poorly defined hypodensity in the left occipital parietal white matter which is unchanged. This is consistent with cerebral edema. VENTRICLES: Unremarkable. No hydrocephalus. CALVARIUM: Unremarkable. PARANASAL SINUSES: Unremarkable as visualized. No significant inflammatory changes. MASTOID AIR CELLS: Unremarkable as visualized. No inflammatory changes. OTHER FINDINGS: None. IMPRESSION: No change in appearance of bilateral subdural hematomas and left parietal-occipital cerebral edema. Persistent mass effect with 7 mm of midline shift to the right
[2017-01-22 09:01] LABS: BASO # 0.02 K/mm3 (0.0-2.0); BASO % 0.3 % (0.0-3.0); EOS # 0.1 (0.0-0.7); EOS % 0.9 % (1.5-5.0); GRAN # 4.61 (1.4-6.5); GRAN % 69.3 % (50.0-68.0); HEMATOCRIT 31.3 % (42.0-52.0); LYMPH # 0.8 (1.2-3.4); LYMPH % 11.6 % (22.0-35.0); MEAN CELL VOLUME 92.1 fl (80.0-105.0); MEAN CORPUSCULAR HEMOGLOBIN 30.3 pg (25.0-35.0); MEAN CORPUSCULAR HGB CONC 32.9 g/dl (31.0-37.0); MEAN PLATELET VOLUME 10.1 fl (7.0-11.0); MONO # 1.2 (0.1-0.6); MONO % 17.9 % (1.0-6.0); RED CELL DISTRIBUTION WIDTH 15.2 % (11.5-14.5); WHITE BLOOD COUNT 6.7 10^3/ul (4.5-11.0)
[2017-01-22 09:17] LABS: ALB/GLOB RATIO 1.1 (1.1-1.8); ALKALINE PHOSPHATASE 78 U/L (38-126); ALT/SGPT 35 U/L (7-56); AST/SGOT 38 U/L (17-59); BILIRUBIN,TOTAL 1.1 mg/dL (0.2-1.3); BLOOD UREA NITROGEN 7 mg/dL (7-21); CALCIUM 8.4 mg/dL (8.4-10.5); CARBON DIOXIDE 22 mmol/L (21-33); CHLORIDE 99 mmol/L (95-110); GFR AFRICAN-AMERICAN > 60; GLUCOSE,RANDOM 104 mg/dL (70-110); MAGNESIUM 1.6 mg/dL (1.7-2.2); PHOSPHOROUS 2.7 mg/dL (2.5-4.5); POTASSIUM 3.8 mmol/L (3.6-5.0); SODIUM 129 mmol/L (132-148); TOTAL PROTEIN 6.6 g/dL (5.8-8.3)
[2017-01-22] MEDS ORDERED: Magnesium Sulfate 2 GM in Sodium Chloride 0.9% 100 ML IV ONE (09:39)
[2017-01-22] MEDS: levETIRAcetam 500mg IVPB 500 MG/100 ML BAG IVPB SCH ×2 (10:05→23:32)
[2017-01-22 11:39] LABS: VENOUS BLOOD GAS BASE EXCESS 3.9 mmol/L (0.0-2.0); VENOUS BLOOD PH 7.47 (7.32-7.43)
--- NOTE | 2017-01-22 11:50 | CP.CCUPN ---
<LIO PHAM - Last Filed: 01/22/17 11:47> CCU Subjective - Physician Review Subjective (Free Text): 01/22/17 11:47 Patient seen and assessed at bedside. Patient uncooperative during interview and repeatedly asks for water, despite having water on bedside table. Patient observed sitting upright while eating breakfast with no problems or any acute distress. Patient tried to get out of bed once overnight with appropriate response to redirection and no other acute overnight events were reported by nursing staff. ROS unobtainable otherwise as patient refusing to answer questions at this time. CCU Objective - Vital Signs / Intake & Output Vital Signs (Last 4 hours): Vital Signs Temp Pulse Resp Pulse Ox 01/22/17 09:30 96 H 23 97 01/22/17 09:19 103 H 17 01/22/17 09:18 102 H 25 H 01/22/17 09:17 101 H 15 01/22/17 09:16 105 H 16 01/22/17 09:13 99.5 F 104 H 27 H 78 L 01/22/17 09:12 99.7 F H 103 H 22 01/22/17 09:11 99.5 F 114 H 84 L 01/22/17 09:09 99.5 F 102 H 23 01/22/17 09:08 99.5 F 100 H 23 01/22/17 09:07 99.5 F 110 H 25 H 01/22/17 09:03 99.5 F 107 H 88 L 01/22/17 09:02 99.5 F 104 H 31 H 01/22/17 09:00 99.5 F 110 H 26 H 01/22/17 08:59 99.5 F 109 H 23 01/22/17 08:58 99.5 F 110 H 28 H 01/22/17 08:57 99.5 F 105 H 15 01/22/17 08:55 99.5 F 102 H 22 01/22/17 08:54 99.5 F 100 H 51 H 01/22/17 08:53 99.5 F 96 H 49 H 01/22/17 08:52 99.5 F 102 H 43 H 01/22/17 08:51 99.5 F 104 H 97 01/22/17 08:50 99.5 F 99 H 22 01/22/17 08:48 99.5 F 110 H 86 L 01/22/17 08:43 99.5 F 110 H 94 L 01/22/17 08:42 99.5 F 102 H 28 H 01/22/17 08:41 99.5 F 110 H 26 H 01/22/17 08:34 99.5 F 92 H 27 H 01/22/17 08:33 99.5 F 95 H 25 H 01/22/17 08:12 99.9 F H 99 H 27 H 01/22/17 08:11 99.9 F H 104 H 17 01/22/17 08:10 99.9 F H 111 H 17 01/22/17 08:09 99.9 F H 99 H 19 Intake and Output (Last 8hrs): Intake & Output 01/21/17 01/22/17 01/22/17 22:59 06:59 14:59 Intake Total 1025 220 140 Output Total 325 280 320 Balance 700 -60 -180 Intake: IV 725 120 140 Left External Jugular 725 120 140 Oral 300 100 Output: Urine 325 280 320 Urethral (Gordon) 325 280 320 Other: Voiding Method Incontinent # Bowel Movements 0 0 - Physical Exam Physical Exam Limitations: Positive for: Uncooperative Head: Positive for: Normocephalic. Negative for: Atraumatic (nasal bone displaced- well healed) Pupils: Positive for: PERRL (unable to assess) Extroacular Muscles: Positive for: EOMI Conjunctiva: Positive for: Normal (unable to assess) Ears: Positive for: Normal Mouth: Positive for: Moist Mucous Membranes Nose (External): Negative for: Atraumatic (nasal bone displaced) Neck: Positive for: Normal Range of Motion, Other (Peripheral IV line in place with dressing clean, dry and intact) Respiratory/Chest: Positive for: Clear to Auscultation. Negative for: Good Air Exchange (shallow breathing pattern), Respiratory Distress, Accessory Muscle Use Cardiovascular: Positive for: Regular Rate and Rhythm, Normal S1, S2. Negative for: Murmurs Abdomen: Positive for: Normal Bowel Sounds. Negative for: Tenderness, Distention, Peritoneal Signs Back: Positive for: Normal Inspection Upper Extremity: Positive for: Normal Inspection. Negative for: Cyanosis, Edema Lower Extremity: Positive for: Normal Inspection. Negative for: Edema Neurological: Negative for: GCS=15 (unable to assess due to uncooperative disposition), CN II-XII Intact (unable to assess), Speech Normal (unable to assess) Skin: Positive for: Warm, Dry, Normal Color. Negative for: Rashes Psychiatric: Positive for: Alert. Negative for: Oriented x 3 (Oriented to person and place), Normal Insight, Normal Concentration - Medications Active Medications: Active Medications Generic Name Dose Route Start Last Admin Trade Name Freq PRN Reason Stop Dose Admin Chlordiazepoxide 25 mg 01/22/17 22:00 Librium PO Q12 SUMIT Protocol Folic Acid 1 mg 01/20/17 10:00 01/22/17 10:03 Folic Acid PO 1 mg DAILY SUMIT Administration Gabapentin 300 mg 01/19/17 18:00 01/22/17 10:04 Neurontin PO 300 mg TID SUMIT Administration Protocol Levetiracetam 500 mg in 100 mls @ 400 mls/hr 01/19/17 22:00 01/22/17 10:05 Keppra 500mg Ivpb IVPB 400 mls/hr Q12 SUMIT Administration Acetaminophen 1,000 mg in 100 mls @ 400 mls/hr 01/21/17 09:16 01/22/17 05:46 Ofirmev IVPB 01/23/17 09:17 400 mls/hr Q6H PRN Administration Temperature Cefepime HCl 1 gm in 100 mls @ 100 mls/hr 01/22/17 14:00 Maxipime 1gm IVPB Q8 SUMIT Protocol Lorazepam 1 mg 01/21/17 07:14 01/21/17 21:27 Ativan IVP 1 mg Q6H PRN Administration Symptoms of alcohol withdrawl Protocol Multivitamins/Minerals 1 tab 01/21/17 08:00 01/22/17 08:00 Therapeutic-M Tab PO 1 tab 0800 SUMIT Administration Pantoprazole Sodium 40 mg 01/22/17 18:00 Protonix Inj IVP BID SUMIT Sodium Chloride 30 ml 01/22/17 11:45 Hypertonic Saline 3% IV DAILY SUMIT Thiamine HCl 100 mg 01/20/17 10:00 01/22/17 10:04 Vitamin B1 Tab PO 100 mg DAILY SUMIT Administration - Patient Studies Lab Studies: Lab Studies 01/22/17 01/22/17 01/22/17 Range/Units 11:00 08:50 08:50 WBC 6.7 (4.5-11.0) 10^3/ul RBC 3.40 L (3.5-6.1) 10^6/uL Hgb 10.3 L (14.0-18.0) g/dL Hct 31.3 L (42.0-52.0) % MCV 92.1 D (80.0-105.0) fl MCH 30.3 (25.0-35.0) pg MCHC 32.9 (31.0-37.0) g/dl RDW 15.2 H (11.5-14.5) % Plt Count 121 (120.0-450.0) 10^3/uL MPV 10.1 (7.0-11.0) fl Gran % 69.3 H (50.0-68.0) % Lymph % (Auto) 11.6 L (22.0-35.0) % [place] % (Auto) 17.9 H (1.0-6.0) % Eos % (Auto) 0.9 L (1.5-5.0) % Baso % (Auto) 0.3 (0.0-3.0) % Gran # 4.61 (1.4-6.5) Lymph # 0.8 L (1.2-3.4) [place] # 1.2 H (0.1-0.6) Eos # 0.1 (0.0-0.7) Baso # 0.02 (0.0-2.0) K/mm3 pO2 50 (30-55) mm/Hg VBG pH 7.47 H (7.32-7.43) VBG pCO2 38.0 L (40-60) VBG HCO3 27.7 (21-28) mmol/l VBG O2 Sat (Calc) 92.6 H (40-65) % VBG Base Excess 3.9 H (0.0-2.0) mmol/L Sodium 129 L (132-148) mmol/L Potassium 3.8 (3.6-5.0) mmol/L Chloride 99 (98-107) mmol/L Carbon Dioxide 22 (21-33) mmol/L Anion Gap 12 (10-20) BUN 7 (7-21) mg/dL Creatinine 0.4 L (0.5-1.4) mg/dL Est GFR ( Amer) > 60 Est GFR (Non-Af Amer) > 60 Random Glucose 104 (70-110) mg/dL Calcium 8.4 (8.4-10.5) mg/dL Phosphorus 2.7 (2.5-4.5) mg/dL Magnesium 1.6 L (1.7-2.2) mg/dL Total Bilirubin 1.1 (0.2-1.3) mg/dL AST 38 (17-59) U/L ALT 35 (7-56) U/L Alkaline Phosphatase 78 (38-126) U/L Total Protein 6.6 (5.8-8.3) g/dL Albumin 3.4 (3.0-4.8) g/dL Globulin 3.2 gm/dL Albumin/Globulin Ratio 1.1 (1.1-1.8) Urine Color (YELLOW) Urine Appearance (CLEAR) Urine pH (4.7-8.0) Ur Specific [place] (1.005-1.035) Urine Protein (<30 mg/dL) mg/dL Urine Glucose (UA) (NEGATIVE) mg/dL Urine Ketones (NEGATIVE) mg/dL Urine Blood (NEGATIVE) Urine Nitrate (NEGATIVE) Urine Bilirubin (NEGATIVE) Urine Urobilinogen (<1 E.U./dL) E.U./dL Ur Leukocyte Esterase (NEGATIVE) Gely/uL Urine Osmolality (50-645) mosm/kg Urine Collection Time HOURS Urine Total Volume (800-1400) mL 01/21/17 01/21/17 01/21/17 Range/Units 23:35 19:30 18:13 WBC (4.5-11.0) 10^3/ul RBC (3.5-6.1) 10^6/uL Hgb (14.0-18.0) g/dL Hct (42.0-52.0) % MCV (80.0-105.0) fl MCH (25.0-35.0) pg MCHC (31.0-37.0) g/dl RDW (11.5-14.5) % Plt Count (120.0-450.0) 10^3/uL MPV (7.0-11.0) fl Gran % (50.0-68.0) % Lymph % (Auto) (22.0-35.0) % [place] % (Auto) (1.0-6.0) % Eos % (Auto) (1.5-5.0) % Baso % (Auto) (0.0-3.0) % Gran # (1.4-6.5) Lymph # (1.2-3.4) [place] # (0.1-0.6) Eos # (0.0-0.7) Baso # (0.0-2.0) K/mm3 pO2 (30-55) mm/Hg VBG pH (7.32-7.43) VBG pCO2 (40-60) VBG HCO3 (21-28) mmol/l VBG O2 Sat (Calc) (40-65) % VBG Base Excess (0.0-2.0) mmol/L Sodium 129 L 127 L (132-148) mmol/L Potassium 4.2 3.5 L (3.6-5.0) mmol/L Chloride 96 L 94 L (98-107) mmol/L Carbon Dioxide 25 25 (21-33) mmol/L Anion Gap 12 12 (10-20) BUN 7 4 L (7-21) mg/dL Creatinine 0.6 0.5 (0.5-1.4) mg/dL Est GFR ( Amer) > 60 > 60 Est GFR (Non-Af Amer) > 60 > 60 Random Glucose 153 H 94 (70-110) mg/dL Calcium 8.5 8.0 L (8.4-10.5) mg/dL Phosphorus (2.5-4.5) mg/dL Magnesium (1.7-2.2) mg/dL Total Bilirubin (0.2-1.3) mg/dL AST (17-59) U/L ALT (7-56) U/L Alkaline Phosphatase (38-126) U/L Total Protein (5.8-8.3) g/dL Albumin (3.0-4.8) g/dL Globulin gm/dL Albumin/Globulin Ratio (1.1-1.8) Urine Color (YELLOW) Urine Appearance (CLEAR) Urine pH (4.7-8.0) Ur Specific [place] (1.005-1.035) Urine Protein (<30 mg/dL) mg/dL Urine Glucose (UA) (NEGATIVE) mg/dL Urine Ketones (NEGATIVE) mg/dL Urine Blood (NEGATIVE) Urine Nitrate (NEGATIVE) Urine Bilirubin (NEGATIVE) Urine Urobilinogen (<1 E.U./dL) E.U./dL Ur Leukocyte Esterase (NEGATIVE) Gely/uL Urine Osmolality (50-645) mosm/kg Urine Collection Time 24 HOURS Urine Total Volume 2950 H (800-1400) mL 01/21/17 01/21/17 Range/Units 11:50 11:50 WBC (4.5-11.0) 10^3/ul RBC (3.5-6.1) 10^6/uL Hgb (14.0-18.0) g/dL Hct (42.0-52.0) % MCV (80.0-105.0) fl MCH (25.0-35.0) pg MCHC (31.0-37.0) g/dl RDW (11.5-14.5) % Plt Count (120.0-450.0) 10^3/uL MPV (7.0-11.0) fl Gran % (50.0-68.0) % Lymph % (Auto) (22.0-35.0) % [place] % (Auto) (1.0-6.0) % Eos % (Auto) (1.5-5.0) % Baso % (Auto) (0.0-3.0) % Gran # (1.4-6.5) Lymph # (1.2-3.4) [place] # (0.1-0.6) Eos # (0.0-0.7) Baso # (0.0-2.0) K/mm3 pO2 (30-55) mm/Hg VBG pH (7.32-7.43) VBG pCO2 (40-60) VBG HCO3 (21-28) mmol/l VBG O2 Sat (Calc) (40-65) % VBG Base Excess (0.0-2.0) mmol/L Sodium (132-148) mmol/L Potassium (3.6-5.0) mmol/L Chloride (98-107) mmol/L Carbon Dioxide (21-33) mmol/L Anion Gap (10-20) BUN (7-21) mg/dL Creatinine (0.5-1.4) mg/dL Est GFR ( Amer) Est GFR (Non-Af Amer) Random Glucose (70-110) mg/dL Calcium (8.4-10.5) mg/dL Phosphorus (2.5-4.5) mg/dL Magnesium (1.7-2.2) mg/dL Total Bilirubin (0.2-1.3) mg/dL AST (17-59) U/L ALT (7-56) U/L Alkaline Phosphatase (38-126) U/L Total Protein (5.8-8.3) g/dL Albumin (3.0-4.8) g/dL Globulin gm/dL Albumin/Globulin Ratio (1.1-1.8) Urine Color Yellow (YELLOW) Urine Appearance Clear (CLEAR) Urine pH 5.5 (4.7-8.0) Ur Specific [place] <= 1.005 (1.005-1.035) Urine Protein Negative (<30 mg/dL) mg/dL Urine Glucose (UA) Negative (NEGATIVE) mg/dL Urine Ketones Negative (NEGATIVE) mg/dL Urine Blood Negative (NEGATIVE) Urine Nitrate Negative (NEGATIVE) Urine Bilirubin Negative (NEGATIVE) Urine Urobilinogen 0.2 (<1 E.U./dL) E.U./dL Ur Leukocyte Esterase Negative (NEGATIVE) Gely/uL Urine Osmolality 53 (50-645) mosm/kg Urine Collection Time HOURS Urine Total Volume (800-1400) mL Laboratory Results - last 24 hr 01/21/17 01/21/17 01/21/17 11:50 11:50 18:13 WBC RBC Hgb Hct MCV MCH MCHC RDW Plt Count MPV Gran % Lymph % (Auto) [place] % (Auto) Eos % (Auto) Baso % (Auto) Gran # Lymph # [place] # Eos # Baso # pO2 VBG pH VBG pCO2 VBG HCO3 VBG O2 Sat (Calc) VBG Base Excess Sodium 127 L Potassium 3.5 L Chloride 94 L Carbon Dioxide 25 Anion Gap 12 BUN 4 L Creatinine 0.5 Est GFR ( Amer) > 60 Est GFR (Non-Af Amer) > 60 Random Glucose 94 Calcium 8.0 L Phosphorus Magnesium Total Bilirubin AST ALT Alkaline Phosphatase Total Protein Albumin Globulin Albumin/Globulin Ratio Urine Color Yellow Urine Appearance Clear Urine pH 5.5 Ur Specific [place] <= 1.005 Urine Protein Negative Urine Glucose (UA) Negative Urine Ketones Negative Urine Blood Negative Urine Nitrate Negative Urine Bilirubin Negative Urine Urobilinogen 0.2 Ur Leukocyte Esterase Negative Urine Osmolality 53 Urine Collection Time Urine Total Volume 01/21/17 01/21/17 01/22/17 19:30 23:35 08:50 WBC 6.7 RBC 3.40 L Hgb 10.3 L Hct 31.3 L MCV 92.1 D MCH 30.3 MCHC 32.9 RDW 15.2 H Plt Count 121 MPV 10.1 Gran % 69.3 H Lymph % (Auto) 11.6 L [place] % (Auto) 17.9 H Eos % (Auto) 0.9 L Baso % (Auto) 0.3 Gran # 4.61 Lymph # 0.8 L [place] # 1.2 H Eos # 0.1 Baso # 0.02 pO2 VBG pH VBG pCO2 VBG HCO3 VBG O2 Sat (Calc) VBG Base Excess Sodium 129 L Potassium 4.2 Chloride 96 L Carbon Dioxide 25 Anion Gap 12 BUN 7 Creatinine 0.6 Est GFR ( Amer) > 60 Est GFR (Non-Af Amer) > 60 Random Glucose 153 H Calcium 8.5 Phosphorus Magnesium Total Bilirubin AST ALT Alkaline Phosphatase Total Protein Albumin Globulin Albumin/Globulin Ratio Urine Color Urine Appearance Urine pH Ur Specific [place] Urine Protein Urine Glucose (UA) Urine Ketones Urine Blood Urine Nitrate Urine Bilirubin Urine Urobilinogen Ur Leukocyte Esterase Urine Osmolality Urine Collection Time 24 Urine Total Volume 2950 H 01/22/17 01/22/17 08:50 11:00 WBC RBC Hgb Hct MCV MCH MCHC RDW Plt Count MPV Gran % Lymph % (Auto) [place] % (Auto) Eos % (Auto) Baso % (Auto) Gran # Lymph # [place] # Eos # Baso # pO2 50 VBG pH 7.47 H VBG pCO2 38.0 L VBG HCO3 27.7 VBG O2 Sat (Calc) 92.6 H VBG Base Excess 3.9 H Sodium 129 L Potassium 3.8 Chloride 99 Carbon Dioxide 22 Anion Gap 12 BUN 7 Creatinine 0.4 L Est GFR ( Amer) > 60 Est GFR (Non-Af Amer) > 60 Random Glucose 104 Calcium 8.4 Phosphorus 2.7 Magnesium 1.6 L Total Bilirubin 1.1 AST 38 ALT 35 Alkaline Phosphatase 78 Total Protein 6.6 Albumin 3.4 Globulin 3.2 Albumin/Globulin Ratio 1.1 Urine Color Urine Appearance Urine pH Ur Specific [place] Urine Protein Urine Glucose (UA) Urine Ketones Urine Blood Urine Nitrate Urine Bilirubin Urine Urobilinogen Ur Leukocyte Esterase Urine Osmolality Urine Collection Time Urine Total Volume Fingerstick Blood Sugar Results: 117 Review of Systems - Review of Systems Review of Systems: As per [facility] Critical Care Progress Note - Ventilator Checklist Head of Bed 30 Degrees: Yes PUD Prophalyxis: Yes DVT Prophylaxis: Yes - Nutrition Nutrition: Nutrition Category Date Time Status Dysphagia/Modified Consistency Diet [DIET] Diets 01/20/17 Dinner Ordered Assessment/Plan - Assessment and Plan (Free Text) Assessment: 66 year old male with past medical history of chronic alcohol abuse who presented s/p fall secondary to alcohol intoxication. He was found to have subdural hemorrhage and admitted to the ICU. Neurology and neurosurgery are following the patient. Patient was later found to have hyponatremia to 125 and nephrology was consulted. Plan: Neuro: -Initial CT head showed acute 11.2 mm subdural hemorrhage within left cerebral hemishphere and right frontal region with a midline shift of 10.6 mm from left to right. -Most recent repeat CT head was done showing hemorrhages stable and the midline shift is stable at 7.0mm. -Continue Keppra and Neurontin, which was most recently held for lethargy -Continue Q2H neuro-checks, avoid hypertension, fever, hyperglycemia, and hyponatremia -Most recent CIWA score: 13 -Tapered librium dosage from 25mg Q8H to 25mg Q12H, most recent dose held due to lethargy -Continue Ativan 1mg Q6H -Continue folic acid, thiamine, and MV supplementation -Continue CIWA protocol, fall, seizure and aspiration precautions -Neurology and Neurosurgery consulted and both signed off of patient on 01/22/17, appreciate all recommendations Cardio: -Maintain HDS -Continue to monitor for tachycardia and hypertension Pulm: -Chest X-Ray showing no active disease process -Currently stable oxygen saturation on room air -Will continue to monitor GI: -Swallow evaluation recommended pureed, thin liquids diet with crushed medications -C. Diff toxin/antigen negative -Previous uptrending LFT's are now downtrending -Increased protonix dosage from 40mg daily to BID for GI prophylaxis Renal: -Hyponatremia improving with Na at 129 from 125 over the past 18 hours on hypertonic saline at 20ml/hr, will increase this to 30ml/hr and repeat BMP at 1600 -Uosm, Urine Electrolytes WNL and Sosm low at 260 -Repeat urine electrolytes and 24 hour urine creatinine pending -Hypokalemia resolved with K+ at 3.8 -Hypomagnesemia with Mg 1.6, despite repleting -Started 2g Magnesium Sulfate IV, 2nd dose in 24 hours -Continue Gordon catheter to measure I/O's, with UOP of 605ml over the past 24 hours -Nephrology consulted, appreciate all recommendations Heme/Onc: -H/H stable at 10.3/31.3 -FOBT positive -All anemia workup has been negative other than an isolated low TIBC -Platelets at 121 ID: -Continues to have intermittent fevers, with a Tmax of 102.2, has been given 3 doses of IV tylenol and currently with a temperature of 99.1 -Started Cefepime 1gm IV Q8H, per ID -Leukocytosis resolved and at 6.5 -Procal, Blood, Urine and MRSA culture pending -Chest X-Ray and UA both read as normal -Will continue to monitor clinically and correlate with previously mentioned pending studies -ID consulted, all recommendations appreciated GI Prophylaxis: Protonix DVT Prophylaxis: SCD's (in setting of acute intracranial hemorrhage) Disposition: Continuation of monitoring for AMS, DT's and alcohol withdrawal as well as monitoring of electrolyte abnormalities while on hypertonic saline. Patient seen and case discussed with attending, Dr. Mooney. - Date & Time Date: 01/22/17 Time: 11:56 <Kaiser Mooney - Last Filed: 01/22/17 13:22> CCU Objective - Vital Signs / Intake & Output Vital Signs (Last 4 hours): Vital Signs Pulse Resp Pulse Ox 01/22/17 09:30 96 H 23 97 01/22/17 09:19 103 H 17 01/22/17 09:18 102 H 25 H Intake and Output (Last 8hrs): Intake & Output 01/21/17 01/22/17 01/22/17 22:59 06:59 14:59 Intake Total 1025 220 140 Output Total 325 280 320 Balance 700 -60 -180 Intake: IV 725 120 140 Left External Jugular 725 120 140 Oral 300 100 Output: Urine 325 280 320 Urethral (Gordon) 325 280 320 Other: Voiding Method Incontinent # Bowel Movements 0 0 - Medications Active Medications: Active Medications Generic Name Dose Route Start Last Admin Trade Name Freq PRN Reason Stop Dose Admin Chlordiazepoxide 25 mg 01/22/17 22:00 Librium PO Q12 SUMIT Protocol Folic Acid 1 mg 01/20/17 10:00 01/22/17 10:03 Folic Acid PO 1 mg DAILY SUMIT Administration Gabapentin 300 mg 01/19/17 18:00 01/22/17 10:04 Neurontin PO 300 mg TID SUMIT Administration Protocol Levetiracetam 500 mg in 100 mls @ 400 mls/hr 01/19/17 22:00 01/22/17 10:05 Keppra 500mg Ivpb IVPB 400 mls/hr Q12 SUMIT Administration Acetaminophen 1,000 mg in 100 mls @ 400 mls/hr 01/21/17 09:16 01/22/17 05:46 Ofirmev IVPB 01/23/17 09: 400 mls/hr Q6H PRN Administration Temperature Cefepime HCl 1 gm in 100 mls @ 100 mls/hr 01/22/17 14:00 01/22/17 13:02 Maxipime 1gm IVPB 100 mls/hr Q8 SUMIT Administration Protocol Sodium Chloride 500 mls @ 30 mls/hr 01/22/17 12:00 01/22/17 12:41 Hypertonic Saline 3% IV 01/23/17 04:39 30 mls/hr .[id number] SUMIT Administration Vancomycin HCl 1 gm in 250 mls @ 167 mls/hr 01/22/17 12:31 01/22/17 13:02 Vancomycin 1gm IVPB 01/22/17 14:00 167 mls/hr STAT STA Administration Protocol Ketorolac Tromethamine 15 mg 01/22/17 13:11 Toradol IVP Q6 PRN Headache Lorazepam 1 mg 01/21/17 07:14 01/21/17 21:27 Ativan IVP 1 mg Q6H PRN Administration Symptoms of alcohol withdrawl Protocol Multivitamins/Minerals 1 tab 01/21/17 08:00 01/22/17 08:00 Therapeutic-M Tab PO 1 tab 0800 SUMIT Administration Pantoprazole Sodium 40 mg 01/22/17 18:00 Protonix Inj IVP BID SUMIT Thiamine HCl 100 mg 01/20/17 10:00 01/22/17 10:04 Vitamin B1 Tab PO 100 mg DAILY SUMIT Administration - Patient Studies Lab Studies: Microbiology Studies 01/21/17 10:40 Blood Culture - Preliminary Blood NO GROWTH AFTER 24 HOURS Lab Studies 01/22/17 01/22/17 01/22/17 Range/Units 11:00 08:50 08:50 WBC 6.7 (4.5-11.0) 10^3/ul RBC 3.40 L (3.5-6.1) 10^6/uL Hgb 10.3 L (14.0-18.0) g/dL Hct 31.3 L (42.0-52.0) % MCV 92.1 D (80.0-105.0) fl MCH 30.3 (25.0-35.0) pg MCHC 32.9 (31.0-37.0) g/dl RDW 15.2 H (11.5-14.5) % Plt Count 121 (120.0-450.0) 10^3/uL MPV 10.1 (7.0-11.0) fl Gran % 69.3 H (50.0-68.0) % Lymph % (Auto) 11.6 L (22.0-35.0) % [place] % (Auto) 17.9 H (1.0-6.0) % Eos % (Auto) 0.9 L (1.5-5.0) % Baso % (Auto) 0.3 (0.0-3.0) % Gran # 4.61 (1.4-6.5) Lymph # 0.8 L (1.2-3.4) [place] # 1.2 H (0.1-0.6) Eos # 0.1 (0.0-0.7) Baso # 0.02 (0.0-2.0) K/mm3 pO2 50 (30-55) mm/Hg VBG pH 7.47 H (7.32-7.43) VBG pCO2 38.0 L (40-60) VBG HCO3 27.7 (21-28) mmol/l VBG O2 Sat (Calc) 92.6 H (40-65) % VBG Base Excess 3.9 H (0.0-2.0) mmol/L Sodium 129 L (132-148) mmol/L Potassium 3.8 (3.6-5.0) mmol/L Chloride 99 (98-107) mmol/L Carbon Dioxide 22 (21-33) mmol/L Anion Gap 12 (10-20) BUN 7 (7-21) mg/dL Creatinine 0.4 L (0.5-1.4) mg/dL Est GFR ( Amer) > 60 Est GFR (Non-Af Amer) > 60 Random Glucose 104 (70-110) mg/dL Calcium 8.4 (8.4-10.5) mg/dL Phosphorus 2.7 (2.5-4.5) mg/dL Magnesium 1.6 L (1.7-2.2) mg/dL Total Bilirubin 1.1 (0.2-1.3) mg/dL AST 38 (17-59) U/L ALT 35 (7-56) U/L Alkaline Phosphatase 78 (38-126) U/L Total Protein 6.6 (5.8-8.3) g/dL Albumin 3.4 (3.0-4.8) g/dL Globulin 3.2 gm/dL Albumin/Globulin Ratio 1.1 (1.1-1.8) Urine Collection Time HOURS Urine Total Volume (800-1400) mL 01/21/17 01/21/17 01/21/17 Range/Units 23:35 19:30 18:13 WBC (4.5-11.0) 10^3/ul RBC (3.5-6.1) 10^6/uL Hgb (14.0-18.0) g/dL Hct (42.0-52.0) % MCV (80.0-105.0) fl MCH (25.0-35.0) pg MCHC (31.0-37.0) g/dl RDW (11.5-14.5) % Plt Count (120.0-450.0) 10^3/uL MPV (7.0-11.0) fl Gran % (50.0-68.0) % Lymph % (Auto) (22.0-35.0) % [place] % (Auto) (1.0-6.0) % Eos % (Auto) (1.5-5.0) % Baso % (Auto) (0.0-3.0) % Gran # (1.4-6.5) Lymph # (1.2-3.4) [place] # (0.1-0.6) Eos # (0.0-0.7) Baso # (0.0-2.0) K/mm3 pO2 (30-55) mm/Hg VBG pH (7.32-7.43) VBG pCO2 (40-60) VBG HCO3 (21-28) mmol/l VBG O2 Sat (Calc) (40-65) % VBG Base Excess (0.0-2.0) mmol/L Sodium 129 L 127 L (132-148) mmol/L Potassium 4.2 3.5 L (3.6-5.0) mmol/L Chloride 96 L 94 L (98-107) mmol/L Carbon Dioxide 25 25 (21-33) mmol/L Anion Gap 12 12 (10-20) BUN 7 4 L (7-21) mg/dL Creatinine 0.6 0.5 (0.5-1.4) mg/dL Est GFR ( Amer) > 60 > 60 Est GFR (Non-Af Amer) > 60 > 60 Random Glucose 153 H 94 (70-110) mg/dL Calcium 8.5 8.0 L (8.4-10.5) mg/dL Phosphorus (2.5-4.5) mg/dL Magnesium (1.7-2.2) mg/dL Total Bilirubin (0.2-1.3) mg/dL AST (17-59) U/L ALT (7-56) U/L Alkaline Phosphatase (38-126) U/L Total Protein (5.8-8.3) g/dL Albumin (3.0-4.8) g/dL Globulin gm/dL Albumin/Globulin Ratio (1.1-1.8) Urine Collection Time 24 HOURS Urine Total Volume 2950 H (800-1400) mL Laboratory Results - last 24 hr 01/21/17 01/21/17 01/21/17 18:13 19:30 23:35 WBC RBC Hgb Hct MCV MCH MCHC RDW Plt Count MPV Gran % Lymph % (Auto) [place] % (Auto) Eos % (Auto) Baso % (Auto) Gran # Lymph # [place] # Eos # Baso # pO2 VBG pH VBG pCO2 VBG HCO3 VBG O2 Sat (Calc) VBG Base Excess Sodium 127 L 129 L Potassium 3.5 L 4.2 Chloride 94 L 96 L Carbon Dioxide 25 25 Anion Gap 12 12 BUN 4 L 7 Creatinine 0.5 0.6 Est GFR ( Amer) > 60 > 60 Est GFR (Non-Af Amer) > 60 > 60 Random Glucose 94 153 H Calcium 8.0 L 8.5 Phosphorus Magnesium Total Bilirubin AST ALT Alkaline Phosphatase Total Protein Albumin Globulin Albumin/Globulin Ratio Urine Collection Time 24 Urine Total Volume 2950 H 01/22/17 01/22/17 01/22/17 08:50 08:50 11:00 WBC 6.7 RBC 3.40 L Hgb 10.3 L Hct 31.3 L MCV 92.1 D MCH 30.3 MCHC 32.9 RDW 15.2 H Plt Count 121 MPV 10.1 Gran % 69.3 H Lymph % (Auto) 11.6 L [place] % (Auto) 17.9 H Eos % (Auto) 0.9 L Baso % (Auto) 0.3 Gran # 4.61 Lymph # 0.8 L [place] # 1.2 H Eos # 0.1 Baso # 0.02 pO2 50 VBG pH 7.47 H VBG pCO2 38.0 L VBG HCO3 27.7 VBG O2 Sat (Calc) 92.6 H VBG Base Excess 3.9 H Sodium 129 L Potassium 3.8 Chloride 99 Carbon Dioxide 22 Anion Gap 12 BUN 7 Creatinine 0.4 L Est GFR ( Amer) > 60 Est GFR (Non-Af Amer) > 60 Random Glucose 104 Calcium 8.4 Phosphorus 2.7 Magnesium 1.6 L Total Bilirubin 1.1 AST 38 ALT 35 Alkaline Phosphatase 78 Total Protein 6.6 Albumin 3.4 Globulin 3.2 Albumin/Globulin Ratio 1.1 Urine Collection Time Urine Total Volume Critical Care Progress Note - Nutrition Nutrition: Nutrition Category Date Time Status Dysphagia/Modified Consistency Diet [DIET] Diets 01/20/17 Dinner Ordered Assessment/Plan - Assessment and Plan (Free Text) Plan: Patient seen and examined on rounds with resident, agree with note. Patient is 66yo male with EtOH abuse who wad amitted for DTs, and bilateral SDH. Patient had repeat CTH today which showed no progression of SDH, stable, midline shift stable. On exam patient is awake, alert, oriented x 2, with no focal neurological deficits. Na remains at 129 today, will increase 3% to 30cc/hr. Patients alcohol withdrawal symptoms vastly improved, will continue to taper librium. ID consulted for persistent fevers. Alcohol withdrawal SDH Hyponatremia Fever Recommend: - supp O2 as needed - follow up cultures, thus far negative, C diff neg - ID consult - Anti-pyretics - increase 3% to 30cc/hr - repeat BMP in the PM - taper Librium - Neurology, and NSG have signed off the case, no fruther imaging needed, stable SDH on consecutive imaging - DVT ppx, SCDs - PPI - Transfer to general medical floor
[2017-01-22] MEDS ORDERED: Sodium Chloride 3% 500 ML IV SCH (12:00)
[2017-01-22] MEDS ORDERED: Vancomycin 1gm in NS 250ml 1 GM/250 ML BAG IVPB STA (12:31)
--- NOTE | 2017-01-22 12:41 | CP.PCM.CON ---
History of Present Illness - History of Present Illness History of Present Illness: 66 year old male with PMH of chronic alcoholism, GERD, gastritis, S/P cholecystectomy, S/P appendectomy was brought in to [facility] because of alcohol intoxication and trauma to the head. CT scan of the head revealed subdural hemorrhage/hematoma, left greater than right. He has been in the ICU for treatment of alcohol withdrawal and monitoring of the subdural hematoma. He developed fever last night and Infectious diseases consult is requested to further evaluate and manage. Currently the patient is quiet in bed , not very cooperative. He answers a few questions, but refuses to answer most questions. He is not vomiting, has no diarrhea, denies abdominal pain, no SOB at rest. Review of Systems - Review of Systems Systems not reviewed;Unavailable: Uncooperative Past Patient History - Infectious Disease Hx of Infectious Diseases: None - Tetanus Immunizations Tetanus Immunization: Unknown - Past Medical History & Family History Past Medical History?: Yes - Past Social History Smoking Status: Heavy Smoker > 10 Cigarettes Daily - CARDIAC Hx Cardiac Disorders: Yes Hx Hypertension: Yes - PULMONARY Hx Respiratory Disorders: Yes Hx Chronic Obstructive Pulmonary Disease (COPD): Yes - NEUROLOGICAL HX Cerebrovascular Accident: Yes - HEENT Hx HEENT Problems: Yes (nasal deformity boxing injury) - RENAL Hx Chronic Kidney Disease: No - ENDOCRINE/METABOLIC Hx Endocrine Disorders: No - HEMATOLOGICAL/ONCOLOGICAL Hx Blood Disorders: No Hx Cancer: No - INTEGUMENTARY Hx Dermatological Problems: Yes Other/Comment: black, scrape andreddened, reddened buttocks, and multiple red wounds to sacrum small amt bleeding noted, tip of r great toe small dry wound surrounded by dry skin, poor hygeine - MUSCULOSKELETAL/RHEUMATOLOGICAL Hx Falls: Yes - GASTROINTESTINAL Hx Gastroesophageal Reflux: Yes - GENITOURINARY/GYNECOLOGICAL Hx Genitourinary Disorders: No Hx Sexually Transmitted Disorders: No - PSYCHIATRIC Hx Psychophysiologic Disorder: Yes Hx Anxiety: Yes Hx Bipolar Disorder: No Hx Depression: Yes Hx Panic Symptoms: Yes Hx Psychosis: Yes Hx Schizophrenia: No Hx Substance Use: No Other/Comment: 1.5 liters vodka daily, suicide attempt 40 yrs ago - SURGICAL HISTORY Hx Appendectomy: Yes Hx Cholecystectomy: Yes Hx Orthopedic Surgery: Yes Other/Comment: left femur metal implant, fell off roof of house, sx to left elbow, left hip, left arm - ANESTHESIA Hx Anesthesia: Yes Hx Anesthesia Reactions: No Hx Malignant Hyperthermia: No Meds Allergies/Adverse Reactions: Allergies Allergy/AdvReac Type Severity Reaction Status Date / Time No Known Allergies Allergy Verified 01/18/17 20:42 - Medications Medications: Current Medications Chlordiazepoxide (Librium) 25 mg PO Q12 [facility] PRN Reason: Protocol Folic Acid (Folic Acid) 1 mg PO DAILY [facility] Last Admin: 01/22/17 10:03 Dose: 1 mg Gabapentin (Neurontin) 300 mg PO TID [facility] PRN Reason: Protocol Last Admin: 01/22/17 10:04 Dose: 300 mg Levetiracetam (Keppra 500mg Ivpb) 500 mg in 100 mls @ 400 mls/hr IVPB Q12 [facility] Last Admin: 01/22/17 10:05 Dose: 400 mls/hr Acetaminophen (Ofirmev) 1,000 mg in 100 mls @ 400 mls/hr IVPB Q6H PRN PRN Reason: Temperature Stop: 01/23/17 09:17 Last Admin: 01/22/17 05:46 Dose: 400 mls/hr Cefepime HCl (Maxipime 1gm) 1 gm in 100 mls @ 100 mls/hr IVPB Q8 [facility] PRN Reason: Protocol Sodium Chloride (Hypertonic Saline 3%) 500 mls @ 30 mls/hr IV .[id number] [facility] Stop: 01/23/17 04:39 Vancomycin HCl (Vancomycin 1gm) 1 gm in 250 mls @ 167 mls/hr IVPB STAT STA PRN Reason: Protocol Stop: 01/22/17 14:00 Lorazepam (Ativan) 1 mg IVP Q6H PRN; Protocol PRN Reason: Symptoms of alcohol withdrawl Last Admin: 01/21/17 21:27 Dose: 1 mg Multivitamins/Minerals (Therapeutic-M Tab) 1 tab PO 0800 [facility] Last Admin: 01/22/17 08:00 Dose: 1 tab Pantoprazole Sodium (Protonix Inj) 40 mg IVP BID [facility] Thiamine HCl (Vitamin B1 Tab) 100 mg PO DAILY [facility] Last Admin: 01/22/17 10:04 Dose: 100 mg Physical Exam - Constitutional Appears: Non-toxic, No Acute Distress - Head Exam Head Exam: NORMAL INSPECTION - ENT Exam ENT Exam: Mucous Membranes Moist - Neck Exam Neck exam: Negative for: Lymphadenopathy, Meningismus - Respiratory Exam Respiratory Exam: Decreased Breath Sounds - Cardiovascular Exam Cardiovascular Exam: +S1, +S2 - GI/Abdominal Exam GI & Abdominal Exam: Soft. absent: Tenderness Results - Vital Signs Recent Vital Signs: Last Vital Signs Temp 99.5 F 01/22/17 09:13 Pulse 96 H 01/22/17 09:30 Resp 23 01/22/17 09:30 BP 141/68 01/22/17 07:05 Pulse Ox 97 01/22/17 09:30 - Labs Result Diagrams: 01/22/17 08:50 01/22/17 08:50 Labs: Laboratory Results - last 24 hr 01/21/17 01/21/17 01/21/17 11:50 11:50 18:13 WBC RBC Hgb Hct MCV MCH MCHC RDW Plt Count MPV Gran % Lymph % (Auto) [place] % (Auto) Eos % (Auto) Baso % (Auto) Gran # Lymph # [place] # Eos # Baso # pO2 VBG pH VBG pCO2 VBG HCO3 VBG O2 Sat (Calc) VBG Base Excess Sodium 127 L Potassium 3.5 L Chloride 94 L Carbon Dioxide 25 Anion Gap 12 BUN 4 L Creatinine 0.5 Est GFR ( Amer) > 60 Est GFR (Non-Af Amer) > 60 Random Glucose 94 Calcium 8.0 L Phosphorus Magnesium Total Bilirubin AST ALT Alkaline Phosphatase Total Protein Albumin Globulin Albumin/Globulin Ratio Urine Color Yellow Urine Appearance Clear Urine pH 5.5 Ur Specific [place] <= 1.005 Urine Protein Negative Urine Glucose (UA) Negative Urine Ketones Negative Urine Blood Negative Urine Nitrate Negative Urine Bilirubin Negative Urine Urobilinogen 0.2 Ur Leukocyte Esterase Negative Urine Osmolality 53 Urine Collection Time Urine Total Volume 01/21/17 01/21/17 01/22/17 19:30 23:35 08:50 WBC 6.7 RBC 3.40 L Hgb 10.3 L Hct 31.3 L MCV 92.1 D MCH 30.3 MCHC 32.9 RDW 15.2 H Plt Count 121 MPV 10.1 Gran % 69.3 H Lymph % (Auto) 11.6 L [place] % (Auto) 17.9 H Eos % (Auto) 0.9 L Baso % (Auto) 0.3 Gran # 4.61 Lymph # 0.8 L [place] # 1.2 H Eos # 0.1 Baso # 0.02 pO2 VBG pH VBG pCO2 VBG HCO3 VBG O2 Sat (Calc) VBG Base Excess Sodium 129 L Potassium 4.2 Chloride 96 L Carbon Dioxide 25 Anion Gap 12 BUN 7 Creatinine 0.6 Est GFR ( Amer) > 60 Est GFR (Non-Af Amer) > 60 Random Glucose 153 H Calcium 8.5 Phosphorus Magnesium Total Bilirubin AST ALT Alkaline Phosphatase Total Protein Albumin Globulin Albumin/Globulin Ratio Urine Color Urine Appearance Urine pH Ur Specific [place] Urine Protein Urine Glucose (UA) Urine Ketones Urine Blood Urine Nitrate Urine Bilirubin Urine Urobilinogen Ur Leukocyte Esterase Urine Osmolality Urine Collection Time 24 Urine Total Volume 2950 H 01/22/17 01/22/17 08:50 11:00 WBC RBC Hgb Hct MCV MCH MCHC RDW Plt Count MPV Gran % Lymph % (Auto) [place] % (Auto) Eos % (Auto) Baso % (Auto) Gran # Lymph # [place] # Eos # Baso # pO2 50 VBG pH 7.47 H VBG pCO2 38.0 L VBG HCO3 27.7 VBG O2 Sat (Calc) 92.6 H VBG Base Excess 3.9 H Sodium 129 L Potassium 3.8 Chloride 99 Carbon Dioxide 22 Anion Gap 12 BUN 7 Creatinine 0.4 L Est GFR ( Amer) > 60 Est GFR (Non-Af Amer) > 60 Random Glucose 104 Calcium 8.4 Phosphorus 2.7 Magnesium 1.6 L Total Bilirubin 1.1 AST 38 ALT 35 Alkaline Phosphatase 78 Total Protein 6.6 Albumin 3.4 Globulin 3.2 Albumin/Globulin Ratio 1.1 Urine Color Urine Appearance Urine pH Ur Specific [place] Urine Protein Urine Glucose (UA) Urine Ketones Urine Blood Urine Nitrate Urine Bilirubin Urine Urobilinogen Ur Leukocyte Esterase Urine Osmolality Urine Collection Time Urine Total Volume Assessment & Plan - Assessment and Plan (Free Text) Plan: Assessment systemic inflammatory response syndrome, R/O due to alcohol withdrawal syndrome , R/O due to subdural hematoma, R/O sepsis, source to be identified chronic alcoholism GERD gastritis S/P cholecystectomy S/P appendectomy Plan gave a dose of IV Vancomycin and started Cefepime pending blood cx, urine cx, repeat CXR (yesterday's CXR did not reveal pneumonia), sputum cx, PCT patient to be continued on monitoring for subdural hematoma by ICU team will monitor clinically
[2017-01-22] MEDS: Cefepime 1gm in NS 100ml 1 GM/100 ML BAG IVPB SCH ×2 (13:02→22:03)
--- NOTE | 2017-01-22 13:32 | CP.PCM.PN ---
<Pritesh Briggs - Last Filed: 01/22/17 18:25> Subjective - Date & Time of Evaluation Date of Evaluation: 01/22/17 Time of Evaluation: 07:00 - Subjective Subjective: Internal Medicine Note Medicine Patient was seen and evaluated in the ICU today. Patient was sleeping, and was able to wake up when he was called upon. I was unable to get a ROS because the patient was not interested in talking and continued to sleep. Objective - Vital Signs/Intake and Output Vital Signs (last 24 hours): Temp Pulse Resp BP Pulse Ox 99.5 F 96 H 23 141/68 97 01/22/17 09:13 01/22/17 09:30 01/22/17 09:30 01/22/17 07:05 01/22/17 09:30 Intake and Output: 01/22/17 01/22/17 06:59 18:59 Intake Total 220 140 Output Total 280 320 Balance -60 -180 - Medications Medications: Current Medications Chlordiazepoxide (Librium) 25 mg PO Q12 [facility] PRN Reason: Protocol Folic Acid (Folic Acid) 1 mg PO DAILY [facility] Last Admin: 01/22/17 10:03 Dose: 1 mg Gabapentin (Neurontin) 300 mg PO TID [facility] PRN Reason: Protocol Last Admin: 01/22/17 10:04 Dose: 300 mg Levetiracetam (Keppra 500mg Ivpb) 500 mg in 100 mls @ 400 mls/hr IVPB Q12 [facility] Last Admin: 01/22/17 10:05 Dose: 400 mls/hr Acetaminophen (Ofirmev) 1,000 mg in 100 mls @ 400 mls/hr IVPB Q6H PRN PRN Reason: Temperature Stop: 01/23/17 09:17 Last Admin: 01/22/17 05:46 Dose: 400 mls/hr Cefepime HCl (Maxipime 1gm) 1 gm in 100 mls @ 100 mls/hr IVPB Q8 [facility] PRN Reason: Protocol Last Admin: 01/22/17 13:02 Dose: 100 mls/hr Sodium Chloride (Hypertonic Saline 3%) 500 mls @ 30 mls/hr IV .[id number] [facility] Stop: 01/23/17 04:39 Last Admin: 01/22/17 12:41 Dose: 30 mls/hr Vancomycin HCl (Vancomycin 1gm) 1 gm in 250 mls @ 167 mls/hr IVPB STAT STA PRN Reason: Protocol Stop: 01/22/17 14:00 Last Admin: 01/22/17 13:02 Dose: 167 mls/hr Ketorolac Tromethamine (Toradol) 15 mg IVP Q6 PRN PRN Reason: Headache Lorazepam (Ativan) 1 mg IVP Q6H PRN; Protocol PRN Reason: Symptoms of alcohol withdrawl Last Admin: 01/21/17 21:27 Dose: 1 mg Multivitamins/Minerals (Therapeutic-M Tab) 1 tab PO 0800 [facility] Last Admin: 01/22/17 08:00 Dose: 1 tab Pantoprazole Sodium (Protonix Inj) 40 mg IVP BID [facility] Thiamine HCl (Vitamin B1 Tab) 100 mg PO DAILY [facility] Last Admin: 01/22/17 10:04 Dose: 100 mg - Labs Labs: 01/22/17 08:50 01/22/17 08:50 PT 10.5 Seconds (9.9-11.8) 01/18/17 21:26 INR 0.97 (0.93-1.08) 01/18/17 21:26 APTT 29.5 Seconds (23.7-30.8) 01/18/17 21:26 - Constitutional Appears: No Acute Distress - Head Exam Head Exam: ATRAUMATIC, NORMAL INSPECTION, NORMOCEPHALIC - Eye Exam Eye Exam: Normal appearance - Respiratory Exam Respiratory Exam: Clear to Ausculation Bilateral, NORMAL BREATHING PATTERN. absent: Stridor - Cardiovascular Exam Cardiovascular Exam: REGULAR RHYTHM, +S1, +S2 - GI/Abdominal Exam GI & Abdominal Exam: Normal Bowel Sounds - Neurological Exam Additional comments: patient is drowsy Assessment and Plan - Assessment and Plan (Free Text) Assessment: 66 yo M with PMH alcoholism, GERD, and Gastritis presents s/p fall, found to have a subdural hemorrhage. Patiently currently in ICU for monitoring. Furthermore the patient was found in alcohol withdrawal. He is being evaluated for alcohol withdrawal and also being worked up for sepsis. Plan: 1. Subdural hemorrhage 2/2 likely fall: - repeat CT head revealed stable hematoma with same size 7 mm rightward shift - continue to monitor mental status, will repeat CT scan if mental status changes - Neurology saw the patient and we will monitor blood pressure and continue to have neurochek q1h - head of bed is raised > 30 degrees - Avoid heparin/any AC 2. SIRS- 2/4 criteria met -possible sepsis from unkown source, work up pending -T max 101.9 -HR range from 96 to 121 in past 24 hours -ID consulted bcx ucx pending -CXR showed no active disease -UA did not show any leukocyte esterase, or nitrate 3. Fall 2/2 likely alcohol intoxication: - Seizure/fall precautions 4. Alcohol Withdrawal - CIWA potocol - continuing MVI, Folic Acid, Thiamine - patient is less agitated, - patient having slight tremors, maybe sign of withdrawal - descrease librium to 25Q12H - will continue Ativan 1mg PRN 5. Hyponatremia-possibly euvolemic likely secondary to SIADH vs cerebral salt wasting - Na now 125 - Nephrology saw the patient - Hypertonic saline at 30ml/hr - will monitor BMP Q4H to prevent correcting rapidly - continue to monitor electrolytes - collect urine sodium and osmolarity 6.Hypophosphatemia secondary to poor oral intake to due to alcoholism- resolved - continue to monitor 7. Hypomagnesia secondary to poor oral intake due to alcoholism - will replete - continue to monitor 8. Hypokalemia secondary to poor oral intake due to alcoholism-resolved - continue to monitor 9. Anemia- acute on chronic, normocytic - iron studies show anemia of chronic disease - Vitamin B12 and Folate was normal - patient had possible FOBT but no active GI bleed, - H/H appears stable will continue to monitor for now 10. Diarrhea- resolved -C Diff testing came back negative 11. Mild Transaminatis- secondary to alcohol abuse - AST trending down to 38 now - continue to monitor 12. GERD: - IV Protonix 13. DVT Prophylaxis -SCD <Brenda Hernandez - Last Filed: 01/22/17 18:34> Objective - Vital Signs/Intake and Output Vital Signs (last 24 hours): Temp Pulse Resp BP Pulse Ox 100.2 F H 108 H 28 H 144/95 H 99 01/22/17 14:09 01/22/17 14:09 01/22/17 14:00 01/22/17 14:00 01/22/17 14:09 Intake and Output: 01/22/17 01/22/17 06:59 18:59 Intake Total 220 140 Output Total 280 320 Balance -60 -180 - Medications Medications: Current Medications Chlordiazepoxide (Librium) 25 mg PO Q12 [facility] PRN Reason: Protocol Folic Acid (Folic Acid) 1 mg PO DAILY [facility] Last Admin: 01/22/17 10:03 Dose: 1 mg Gabapentin (Neurontin) 300 mg PO TID [facility] PRN Reason: Protocol Last Admin: 01/22/17 14:28 Dose: 300 mg Levetiracetam (Keppra 500mg Ivpb) 500 mg in 100 mls @ 400 mls/hr IVPB Q12 [facility] Last Admin: 01/22/17 10:05 Dose: 400 mls/hr Acetaminophen (Ofirmev) 1,000 mg in 100 mls @ 400 mls/hr IVPB Q6H PRN PRN Reason: Temperature Stop: 01/23/17 09:17 Last Admin: 01/22/17 16:58 Dose: 400 mls/hr Cefepime HCl (Maxipime 1gm) 1 gm in 100 mls @ 100 mls/hr IVPB Q8 [facility] PRN Reason: Protocol Last Admin: 01/22/17 13:02 Dose: 100 mls/hr Sodium Chloride (Hypertonic Saline 3%) 500 mls @ 30 mls/hr IV .[id number] [facility] Stop: 01/23/17 04:39 Last Admin: 01/22/17 12:41 Dose: 30 mls/hr Ketorolac Tromethamine (Toradol) 15 mg IVP Q6 PRN PRN Reason: Headache Last Admin: 01/22/17 15:25 Dose: 15 mg Lorazepam (Ativan) 1 mg IVP Q6H PRN; Protocol PRN Reason: Symptoms of alcohol withdrawl Last Admin: 01/21/17 21:27 Dose: 1 mg Multivitamins/Minerals (Therapeutic-M Tab) 1 tab PO 0800 [facility] Last Admin: 01/22/17 08:00 Dose: 1 tab Pantoprazole Sodium (Protonix Inj) 40 mg IVP BID [facility] Thiamine HCl (Vitamin B1 Tab) 100 mg PO DAILY [facility] Last Admin: 01/22/17 10:04 Dose: 100 mg - Labs Labs: 01/22/17 08:50 01/22/17 17:00 PT 10.5 Seconds (9.9-11.8) 01/18/17 21:26 INR 0.97 (0.93-1.08) 01/18/17 21:26 APTT 29.5 Seconds (23.7-30.8) 01/18/17 21:26 Attending/Attestation - Attestation I have personally seen and examined this patient.: Yes I have fully participated in the care of the patient.: Yes I have reviewed all pertinent clinical information, including history, physical exam and plan: Yes Notes (Text): 01/22/17 18:32 66 year old male with past medical history of chronic ETOH abuse who presented s /p fall secondary to alcohol intoxication. He was found to have subdural hemorrhage and admitted to the ICU. He was seen by neurology and neurosurgery. Continue with serial neurochecks. Repeat CT head showed stable findings. He is on ativan prn and tapering librium for acute alcohol withdrawal. He is on multivitamin, folic acid and thiamine. He was counselled on alcohol abstinence. Nephrology is following for hyponatremia. Continue to monitor closely. Will follow up neurology recommendations. ID evaluation was appreciated for fever. He is started empirically on antibiotics. Septic workup is negative so far. Will monitor. Will replete and repeat lytes. Brenda Hernandez MD Hospitalist.
--- NOTE | 2017-01-22 14:43 | RAD ---
HISTORY: rule out pneumonia COMPARISON: 01/21/2017 FINDINGS: LUNGS: There is some linear scarring in both lung apices. There is no focal consolidation PLEURA: No significant pleural effusion identified, no pneumothorax apparent. CARDIOVASCULAR: Normal. OSSEOUS STRUCTURES: No significant abnormalities. VISUALIZED UPPER ABDOMEN: Normal. OTHER FINDINGS: None. IMPRESSION: No active disease.
[2017-01-22 17:35] LABS: BLOOD UREA NITROGEN 6 mg/dL (7-21); CALCIUM 8.4 mg/dL (8.4-10.5); CARBON DIOXIDE 23 mmol/L (21-33); CHLORIDE 99 mmol/L (98-107); GFR AFRICAN-AMERICAN > 60; GLUCOSE,RANDOM 109 mg/dL (70-110); POTASSIUM 3.5 mmol/L (3.6-5.0); SODIUM 130 mmol/L (132-148)
[2017-01-22] MEDS ORDERED: Potassium Chloride 40 mEq/30 ml LIQ UD PO ONE (17:53)
--- NOTE | 2017-01-22 19:13 | CP.PCM.PN ---
Subjective - Date & Time of Evaluation Date of Evaluation: 01/22/17 Time of Evaluation: 19:10 - Subjective Subjective: Paged by RN informing me that 3% NS cannot be administered on the gen med/surg floor as per hospital policy. Spoke with Dr. 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 Additionally was advised to change diet to fluid restriction at 1000ml. Aforementioned orders have been placed. Nurse also informed of attaining urine lytes required by scroll shear operator. Additionally, I was informed by RN that IV Tylenol cannot be administered on the gen med/surg floor. Tylenol order changed to rectal as patient is experiencing dysphagia. Objective - Vital Signs/Intake and Output Vital Signs (last 24 hours): Temp Pulse Resp BP Pulse Ox 100.2 F H 108 H 28 H 144/95 H 99 01/22/17 14:09 01/22/17 14:09 01/22/17 14:00 01/22/17 14:00 01/22/17 14:09 Intake and Output: 01/22/17 01/23/17 18:59 06:59 Intake Total 140 Output Total 320 Balance -180 - Medications Medications: Current Medications Chlordiazepoxide (Librium) 25 mg PO Q12 [facility] PRN Reason: Protocol Folic Acid (Folic Acid) 1 mg PO DAILY [facility] Last Admin: 01/22/17 10:03 Dose: 1 mg Gabapentin (Neurontin) 300 mg PO TID [facility] PRN Reason: Protocol Last Admin: 01/22/17 14:28 Dose: 300 mg Levetiracetam (Keppra 500mg Ivpb) 500 mg in 100 mls @ 400 mls/hr IVPB Q12 [facility] Last Admin: 01/22/17 10:05 Dose: 400 mls/hr Acetaminophen (Ofirmev) 1,000 mg in 100 mls @ 400 mls/hr IVPB Q6H PRN PRN Reason: Temperature Stop: 01/23/17 09:17 Last Admin: 01/22/17 16:58 Dose: 400 mls/hr Cefepime HCl (Maxipime 1gm) 1 gm in 100 mls @ 100 mls/hr IVPB Q8 [facility] PRN Reason: Protocol Last Admin: 01/22/17 13:02 Dose: 100 mls/hr Lorazepam (Ativan) 1 mg IVP Q6H PRN; Protocol PRN Reason: Symptoms of alcohol withdrawl Last Admin: 01/21/17 21:27 Dose: 1 mg Multivitamins/Minerals (Therapeutic-M Tab) 1 tab PO 0800 [facility] Last Admin: 01/22/17 08:00 Dose: 1 tab Pantoprazole Sodium (Protonix Inj) 40 mg IVP BID [facility] Thiamine HCl (Vitamin B1 Tab) 100 mg PO DAILY [facility] Last Admin: 01/22/17 10:04 Dose: 100 mg - Labs Labs: 01/22/17 08:50 01/22/17 17:00 PT 10.5 Seconds (9.9-11.8) 01/18/17 21:26 INR 0.97 (0.93-1.08) 01/18/17 21:26 APTT 29.5 Seconds (23.7-30.8) 01/18/17 21:26
--- NOTE | 2017-01-22 22:58 | PN ---
NEPHROLOGY FOLLOWUP NOTE DATE: SUBJECTIVE: The patient is a 66-year-old male with past medical history of alcohol abuse, admitted with acute subdural hematoma, nephrology following for hyponatremia. The patient reportedly more alert per nursing staff after sedation decreased. When asked if he has any pain, the patient motions to his head, otherwise slow to respond. PHYSICAL EXAMINATION GENERAL: No distress. Slow to respond. VITAL SIGNS: This morning, blood pressure 141/68, heart rate 112, respirations 18, temperature 101.1, and O2 sat 94% on room air. HEENT: Moist mucous membrane. Nonicteric. RESPIRATORY: Lungs clear to auscultation bilaterally. No rales, no rhonchi or no wheezes. HEART: S1 and S2, normal. No murmurs, no gallops, no rubs. GASTROINTESTINAL: Abdomen soft, nontender and nondistended. GENITOURINARY: Gordon in place. EXTREMITIES: No lower leg edema. SKIN: Warm to touch. No cyanosis. PSYCHIATRIC; Appears lethargic. LABORATORY DATA: This morning, CBC; WBC 6.7, hemoglobin 10.3, hematocrit 31.3 and platelets 121. Chemistry panel; sodium 129, potassium 3.8, chloride 99, bicarb 22, BUN 7, creatinine 0.4, glucose 104 and magnesium 1.6. ASSESSMENT AND PLAN: 1. Hyponatremia, main differentials are syndrome of inappropriate secretion of antidiuretic hormone, rest is cerebral salt wasting. No overt signs of volume depletion to suggest cerebral salt wasting. The patient most likely with syndrome of inappropriate secretion of antidiuretic hormone with drop in serum sodium, on giving IV fluids also consistent with this diagnosis. The patient started on 3% hypotonic saline yesterday at 20 mL an hour with only mild improvement in hyponatremia. Agree with increasing rate to 30 mL per hour. Repeat urine sodium and osmolality has significant drop in urine osmolality may be more suggestive of cerebral salt wasting. 2. Subdural hematoma, likely causing syndrome of inappropriate secretion of antidiuretic hormone, see above. 3. Headache. The patient started on ketorolac p.r.n. for headache; however, it should be noted that NSAIDs can potentiate the affect of antidiuretic hormone in the setting of hyponatremia, should use an alternative agent. 4. Systemic inflammatory response syndrome, the patient spiking temperatures, started on cefepime, need to ensure the patient does not get volume depleted as this also would serve as a stimulus for antidiuretic hormone release and, therefore, hyponatremia. Jair Hloder MD [facility] # [id number]
[2017-01-23] MEDS: Cefepime 1gm in NS 100ml 1 GM/100 ML BAG IVPB SCH ×3 (05:58→21:05)
[2017-01-23 07:19] LABS: EOS # 0.1 (0.0-0.7); EOS % 0.8 % (1.5-5.0); GRAN # 5.42 (1.4-6.5); GRAN % 70.4 % (50.0-68.0); HEMATOCRIT 30.9 % (42.0-52.0); LYMPH # 0.9 (1.2-3.4); LYMPH % 11.9 % (22.0-35.0); MEAN CELL VOLUME 92.2 fl (80.0-105.0); MEAN CORPUSCULAR HEMOGLOBIN 29.6 pg (25.0-35.0); MEAN PLATELET VOLUME 9.4 fl (7.0-11.0); MONO # 1.3 (0.1-0.6); MONO % 16.9 % (1.0-6.0); RED CELL DISTRIBUTION WIDTH 15.3 % (11.5-14.5); WHITE BLOOD COUNT 7.7 10^3/ul (4.5-11.0)
[2017-01-23 07:33] LABS: ALB/GLOB RATIO 1.1 (1.1-1.8); ALKALINE PHOSPHATASE 84 U/L (38-126); ALT/SGPT 36 U/L (7-56); AST/SGOT 39 U/L (17-59); BILIRUBIN,TOTAL 0.8 mg/dL (0.2-1.3); BLOOD UREA NITROGEN 7 mg/dL (7-21); CALCIUM 8.6 mg/dL (8.4-10.5); CARBON DIOXIDE 24 mmol/L (21-33); CHLORIDE 99 mmol/L (98-107); GFR AFRICAN-AMERICAN > 60; GLUCOSE,RANDOM 99 mg/dL (70-110); MAGNESIUM 1.6 mg/dL (1.7-2.2); PHOSPHOROUS 2.8 mg/dL (2.5-4.5); POTASSIUM 4.1 mmol/L (3.6-5.0); SODIUM 131 mmol/L (132-148); TOTAL PROTEIN 6.6 g/dL (5.8-8.3)
[2017-01-23] MEDS ORDERED: Magnesium Sulfate 2 GM in Sodium Chloride 0.9% 100 ML IVPB ONE (07:53)
[2017-01-23] MEDS: Multivitamin With Minerals Tab PO SCH (08:38)
--- NOTE | 2017-01-23 08:54 | PN ---
DATE: 01/23/2017 This is coverage for Dr. Holder. SUBJECTIVE: The patient has no complaints. PHYSICAL EXAMINATION: VITAL SIGNS: Temperature is 99.1, pulse is 97, blood pressure is 140/80, respirations is 20. GENERAL: The patient is lying in bed, flat, comfortable. HEENT: No oral lesion. Anicteric sclerae. Moist mucosa. NECK: No JVD, adenopathy, or thyromegaly. CARDIOVASCULAR: S1 and S2, regular. No murmurs, rubs, or gallops. LUNGS: Clear to auscultation bilaterally. No wheeze, rales, or rhonchi. ABDOMEN: Bowel sounds are positive, soft, nontender and nondistended. EXTREMITIES: No cyanosis, clubbing or edema. LABORATORY DATA: Sodium is 131, creatinine is 0.5. ASSESSMENT: 1. Hyponatremia. 2. Subdural hematoma. 3. Anemia. 4. Hypomagnesemia. 5. Heme positive stool. PLAN: The patient has urine osmolality of 658. His sodium is currently 131, this is stable. He is on Keppra for seizures. He was given magnesium replacement this morning because of the hypomagnesemia. He is on IV Protonix. The patient is receiving thiamine. He is currently comfortable. We will continue to follow his electrolytes. Vinnie Servin MD
[2017-01-23] MEDS: levETIRAcetam 500mg IVPB 500 MG/100 ML BAG IVPB SCH ×2 (10:02→21:04)
--- NOTE | 2017-01-23 13:31 | CP.PCM.PN ---
<Pritesh Briggs - Last Filed: 01/23/17 14:05> Subjective - Date & Time of Evaluation Date of Evaluation: 01/23/17 Time of Evaluation: 07:30 - Subjective Subjective: Internal Medicine Progress Note Patient was seen and evaluated in the ICU today. Patient was awake and lying in bed with head raised. Patient asked me to give him water. I was unable to get a ROS because of patients mental status. Objective - Vital Signs/Intake and Output Vital Signs (last 24 hours): Temp Pulse Resp BP Pulse Ox 99.1 F 97 H 20 140/80 99 01/23/17 07:30 01/23/17 07:30 01/23/17 07:30 01/23/17 07:30 01/23/17 07:30 Intake and Output: 01/23/17 01/23/17 06:59 18:59 Intake Total 0 240 Output Total 0 550 Balance 0 -310 - Medications Medications: Current Medications Acetaminophen (Tylenol 325 Mg Supp) 325 mg RC Q6H PRN PRN Reason: Fever >100.4 F Last Admin: 01/23/17 06:00 Dose: 325 mg Chlordiazepoxide (Librium) 25 mg PO Q12 [facility] PRN Reason: Protocol Last Admin: 01/23/17 10:05 Dose: 25 mg Folic Acid (Folic Acid) 1 mg PO DAILY [facility] Last Admin: 01/23/17 10:02 Dose: 1 mg Gabapentin (Neurontin) 300 mg PO TID [facility] PRN Reason: Protocol Last Admin: 01/23/17 10:02 Dose: 300 mg Levetiracetam (Keppra 500mg Ivpb) 500 mg in 100 mls @ 400 mls/hr IVPB Q12 [facility] Last Admin: 01/23/17 10:02 Dose: 400 mls/hr Cefepime HCl (Maxipime 1gm) 1 gm in 100 mls @ 100 mls/hr IVPB Q8 [facility] PRN Reason: Protocol Last Admin: 01/23/17 05:58 Dose: 100 mls/hr Lorazepam (Ativan) 1 mg IVP Q6H PRN; Protocol PRN Reason: Symptoms of alcohol withdrawl Last Admin: 01/21/17 21:27 Dose: 1 mg Multivitamins/Minerals (Therapeutic-M Tab) 1 tab PO 0800 [facility] Last Admin: 01/23/17 08:38 Dose: 1 tab Pantoprazole Sodium (Protonix Inj) 40 mg IVP BID [facility] Last Admin: 01/23/17 10:02 Dose: 40 mg Sodium Chloride (Sodium Chloride Tab) 2 gm PO Q8H [facility] Last Admin: 01/23/17 05:57 Dose: 2 gm Thiamine HCl (Vitamin B1 Tab) 100 mg PO DAILY [facility] Last Admin: 01/23/17 10:02 Dose: 100 mg - Labs Labs: 01/23/17 06:15 01/23/17 06:15 PT 10.5 Seconds (9.9-11.8) 01/18/17 21:26 INR 0.97 (0.93-1.08) 01/18/17 21:26 APTT 29.5 Seconds (23.7-30.8) 01/18/17 21:26 - Constitutional Appears: No Acute Distress - Head Exam Head Exam: ATRAUMATIC, NORMAL INSPECTION, NORMOCEPHALIC - Eye Exam Eye Exam: Normal appearance - Respiratory Exam Respiratory Exam: Clear to Ausculation Bilateral, NORMAL BREATHING PATTERN - Cardiovascular Exam Cardiovascular Exam: REGULAR RHYTHM, +S1, +S2 - GI/Abdominal Exam GI & Abdominal Exam: Normal Bowel Sounds - Neurological Exam Neurological Exam: Awake Assessment and Plan - Assessment and Plan (Free Text) Assessment: 66 yo M with PMH alcoholism, GERD, and Gastritis presents s/p fall, found to have a subdural hemorrhage. Patiently currently in ICU for monitoring. Furthermore the patient was found in alcohol withdrawal. He is being evaluated for alcohol withdrawal and also being worked up for sepsis. Plan: 1. Subdural hemorrhage 2/2 likely fall: - Hematoma is stable - continue to monitor mental status, will contact Dr. Lindsey and discuss when to repeat CT - will also consult for PT - Neurology saw the patient and we will monitor blood pressure and continue to have neurochek q1h - head of bed is raised > 30 degrees - Avoid heparin/any AC 2. SIRS- 2/4 criteria met -possible sepsis from unknown source, work up pending -T max today was 100.4 -HR range lower from yesterday to 97 -ID consulted bcx ucx pending -CXR no active disease -UA did not show any leukocyte esterase, or nitrate 3. Fall 2/2 likely alcohol intoxication: - Seizure/fall precautions 4. Alcohol Withdrawal - CIWA potocol - continuing MVI, Folic Acid, Thiamine - patient is less agitated, more alert and awake - patients tremors improving - Librium decreased to 10Q8 - will continue Ativan 1mg PRN 5. Hyponatremia-resolved - Na 131 - Nephrology saw the patient - monitor BMP - continue to monitor electrolytes 6.Hypophosphatemia secondary to poor oral intake to due to alcoholism- resolved - continue to monitor 7. Hypomagnesia secondary to poor oral intake due to alcoholism - given magnesium - continue to monitor 8. Hypokalemia secondary to poor oral intake due to alcoholism-resolved - continue to monitor 9. Anemia- acute on chronic, normocytic - iron studies show anemia of chronic disease - Vitamin B12 and Folate was normal - patient had possible FOBT but no active GI bleed, - H/H appears stable will continue to monitor for now 10. Diarrhea- resolved -C Diff testing came back negative 11. Mild Transaminatis- secondary to alcohol abuse - AST trending down to 38 now - continue to monitor 12. GERD: - IV Protonix 13. DVT Prophylaxis -SCD <Brenda Hernandez - Last Filed: 01/23/17 15:01> Objective - Vital Signs/Intake and Output Vital Signs (last 24 hours): Temp Pulse Resp BP Pulse Ox 99.1 F 97 H 20 140/80 99 01/23/17 07:30 01/23/17 07:30 01/23/17 07:30 01/23/17 07:30 01/23/17 07:30 Intake and Output: 01/23/17 01/23/17 06:59 18:59 Intake Total 0 240 Output Total 0 550 Balance 0 -310 - Medications Medications: Current Medications Acetaminophen (Tylenol 325 Mg Supp) 325 mg RC Q6H PRN PRN Reason: Fever >100.4 F Last Admin: 01/23/17 06:00 Dose: 325 mg Chlordiazepoxide (Librium) 10 mg PO Q8 [facility] PRN Reason: Protocol Folic Acid (Folic Acid) 1 mg PO DAILY [facility] Last Admin: 01/23/17 10:02 Dose: 1 mg Gabapentin (Neurontin) 300 mg PO TID [facility] PRN Reason: Protocol Last Admin: 01/23/17 10:02 Dose: 300 mg Levetiracetam (Keppra 500mg Ivpb) 500 mg in 100 mls @ 400 mls/hr IVPB Q12 [facility] Last Admin: 01/23/17 10:02 Dose: 400 mls/hr Cefepime HCl (Maxipime 1gm) 1 gm in 100 mls @ 100 mls/hr IVPB Q8 [facility] PRN Reason: Protocol Last Admin: 01/23/17 05:58 Dose: 100 mls/hr Lorazepam (Ativan) 1 mg IVP Q6H PRN; Protocol PRN Reason: Symptoms of alcohol withdrawl Last Admin: 01/21/17 21:27 Dose: 1 mg Multivitamins/Minerals (Therapeutic-M Tab) 1 tab PO 0800 [facility] Last Admin: 01/23/17 08:38 Dose: 1 tab Pantoprazole Sodium (Protonix Inj) 40 mg IVP BID [facility] Last Admin: 01/23/17 10:02 Dose: 40 mg Sodium Chloride (Sodium Chloride Tab) 2 gm PO Q8H [facility] Last Admin: 01/23/17 05:57 Dose: 2 gm Thiamine HCl (Vitamin B1 Tab) 100 mg PO DAILY [facility] Last Admin: 01/23/17 10:02 Dose: 100 mg - Labs Labs: 01/23/17 06:15 01/23/17 06:15 PT 10.5 Seconds (9.9-11.8) 01/18/17 21:26 INR 0.97 (0.93-1.08) 01/18/17 21:26 APTT 29.5 Seconds (23.7-30.8) 01/18/17 21:26 Attending/Attestation - Attestation I have personally seen and examined this patient.: Yes I have fully participated in the care of the patient.: Yes I have reviewed all pertinent clinical information, including history, physical exam and plan: Yes Notes (Text): 01/23/17 14:59 66 year old male with past medical history of chronic ETOH abuse who presented s /p fall secondary to alcohol intoxication. He was found to have subdural hemorrhage and admitted to the ICU. He was seen by neurology and neurosurgery. Continue with serial neurochecks. Repeat CT head showed stable findings. He was downgraded from ICU yesterday. He is more alert today. Consider PT evaluation if okay with neurosurgery. He is on ativan prn and tapering librium for acute alcohol withdrawal. He is on multivitamin, folic acid and thiamine. He was counselled on alcohol abstinence. Nephrology is following for hyponatremia. Sodium level has been improving and stable. Continue to monitor closely. Will follow up neurology recommendations. ID evaluation was appreciated for fever. He is started empirically on antibiotics. Septic workup is negative so far. Will monitor. Fever trend has come down. Will replete and repeat lytes. Brenda Hernandez MD Hospitalist.
--- NOTE | 2017-01-23 18:12 | PN ---
DATE: 01/23/2017 SUBJECTIVE: The patient is in bed, in no acute distress, nontoxic. PHYSICAL EXAMINATION: VITAL SIGNS: Temperature is 99, T-max 100.4. Blood pressure is 140/80. HEENT: Unremarkable. NECK: Supple. LUNGS: Decreased breath sounds. HEART: Normal S1 and S2. ABDOMEN: Soft. LABORATORY DATA: Reveals a white count of 7.4, hemoglobin of 9, platelet of 233. Chemistries reveals the BUN of 7, creatinine of 0.5. Procalcitonin is revealed 0.11. Urinalysis is noted. HIV is negative. Blood cultures, there is no growth. ASSESSMENT AND PLAN: This is a 66-year-old with systemic inflammatory response syndrome due to alcohol withdrawal syndrome, chronic alcohol, gastroesophageal reflux disease, gastritis, on intravenous vancomycin and cefepime. Pending final cultures results and workup results. Thus far the HIV is negative. Procalcitonin is negative and preliminary cultures, blood cultures had no growth. We will follow with you. Roque Chowdary MD
[2017-01-24] MEDS: Cefepime 1gm in NS 100ml 1 GM/100 ML BAG IVPB SCH ×3 (05:34→22:18)
[2017-01-24] MEDS: Pantoprazole 40 mg Susp UD PO SCH ×2 (06:24→16:58)
[2017-01-24 07:14] LABS: BASO # 0.01 K/mm3 (0.0-2.0); BASO % 0.1 % (0.0-3.0); EOS % 0.4 % (1.5-5.0); GRAN # 6.94 (1.4-6.5); GRAN % 67.4 % (50.0-68.0); HEMATOCRIT 28.1 % (42.0-52.0); LYMPH # 0.8 (1.2-3.4); LYMPH % 7.7 % (22.0-35.0); MEAN CELL VOLUME 88.9 fl (80.0-105.0); MEAN CORPUSCULAR HEMOGLOBIN 29.1 pg (25.0-35.0); MEAN CORPUSCULAR HGB CONC 32.7 g/dl (31.0-37.0); MEAN PLATELET VOLUME 8.9 fl (7.0-11.0); MONO # 2.5 (0.1-0.6); MONO % 24.4 % (1.0-6.0); PLATELET COUNT 261 10^3/uL (120.0-450.0); RED CELL DISTRIBUTION WIDTH 14.7 % (11.5-14.5); WHITE BLOOD COUNT 10.3 10^3/ul (4.5-11.0)
[2017-01-24 07:26] LABS: ALKALINE PHOSPHATASE 79 U/L (38-126); ALT/SGPT 29 U/L (7-56); AST/SGOT 36 U/L (17-59); BILIRUBIN,TOTAL 1.2 mg/dL (0.2-1.3); BLOOD UREA NITROGEN 6 mg/dL (7-21); CALCIUM 8.2 mg/dL (8.4-10.5); CARBON DIOXIDE 25 mmol/L (21-33); CHLORIDE 91 mmol/L (95-110); GFR AFRICAN-AMERICAN > 60; GLUCOSE,RANDOM 118 mg/dL (70-110); MAGNESIUM 1.4 mg/dL (1.7-2.2); POTASSIUM 3.6 mmol/L (3.6-5.0); SODIUM 123 mmol/L (132-148)
[2017-01-24 07:37] LABS: PHOSPHOROUS 2.8 mg/dL (2.5-4.5); TOTAL PROTEIN 6.6 g/dL (5.8-8.3)
[2017-01-24 08:26] LABS: PH,URINE 8.5 (4.7-8.0); URINE BILIRUBIN NEGATIVE (NEGATIVE); URINE BLOOD NEGATIVE (NEGATIVE); URINE GLUCOSE (UA) NEGATIVE (NEGATIVE); URINE KETONE NEGATIVE (NEGATIVE); URINE LEUKOCYTE ESTERASE NEGATIVE Leu/uL (NEGATIVE); URINE PROTEIN NEGATIVE mg/dL (<30 mg/dL)
[2017-01-24 08:27] LABS: URINE APPEARANCE CLEAR (CLEAR); URINE COLOR YELLOW (YELLOW)
[2017-01-24 08:41] LABS: ANISOCYTOSIS 1+; BAND 2 % (0-2); EOSINOPHIL 2 % (0.0-3.0); HYPOCHROMIA 1+; NEUTROPHIL 72 % (50.0-70.0); PLATELET ESTIMATE NORMAL (NORMAL)
[2017-01-24 08:42] LABS: GIANT PLATELETS PRESENT; LARGE PLATELETS PRESENT; TEAR DROP CELLS SLIGHT; TOXIC GRANULATION 1+
[2017-01-24] MEDS: Multivitamin With Minerals Tab PO SCH (09:06)
[2017-01-24] MEDS: levETIRAcetam 500mg IVPB 500 MG/100 ML BAG IVPB SCH ×2 (09:06→22:00)
--- NOTE | 2017-01-24 10:32 | PN ---
DATE: 01/24/2017 SUBJECTIVE: The patient is not responding much. PHYSICAL EXAMINATION: VITAL SIGNS: Temperature 99, pulse is 71, blood pressure 140/81, and respirations 20. GENERAL: The patient is lying in bed, flat, comfortable. HEENT: No oral lesion. Anicteric sclerae. Moist mucosa. NECK: No JVD, adenopathy, or thyromegaly. CARDIOVASCULAR: S1 and S2, regular. No murmurs, rubs, or gallops. LUNGS: Clear to auscultation bilaterally. No wheeze, rales, or rhonchi. ABDOMEN: Bowel sounds are positive, soft, nontender and nondistended. EXTREMITIES: No cyanosis, clubbing or edema. LABORATORY DATA: Sodium is 123. Hemoglobin is 9.2. ASSESSMENT: 1. Hyponatremia, worse. 2. Subdural hematoma. 3. Anemia. 4. Hypomagnesemia. 5. Heme-positive stool. PLAN: The patient has a worsening hyponatremia. We will add-on Lasix. The patient will have another urine osmolality done. Yesterday's serum osmolality is elevated at 658. We will also order urine sodium. He is already on sodium tablets. There are concerns for SIADH, although possibility of salt-wasting from the subdural may be a possibility. Vinnie Servin MD
--- NOTE | 2017-01-24 16:31 | CP.PCM.PN ---
<Nazario Stoll - Last Filed: 01/25/17 19:08> Subjective - Date & Time of Evaluation Date of Evaluation: 01/24/17 Time of Evaluation: 16:30 - Subjective Subjective: Nazario Stoll DO, PGY-1, Hospitalist Service Patient seen and examined at bedside. Patient reports no complaints. Nurse reports he was stable and manageable overnight. Objective - Vital Signs/Intake and Output Vital Signs (last 24 hours): Temp Pulse Resp BP Pulse Ox 99.9 F H 71 20 140/80 98 01/24/17 08:00 01/24/17 08:00 01/24/17 08:00 01/24/17 09:05 01/24/17 08:00 Intake and Output: 01/24/17 01/24/17 06:59 18:59 Intake Total 1600 640 Output Total 2200 1600 Balance -600 -960 - Medications Medications: Current Medications Acetaminophen (Tylenol 325 Mg Supp) 325 mg RC Q6H PRN PRN Reason: Fever >100.4 F Last Admin: 01/23/17 06:00 Dose: 325 mg Chlordiazepoxide (Librium) 10 mg PO Q8 [facility] PRN Reason: Protocol Last Admin: 01/24/17 13:49 Dose: 10 mg Folic Acid (Folic Acid) 1 mg PO DAILY [facility] Last Admin: 01/24/17 09:06 Dose: 1 mg Furosemide (Lasix) 40 mg IVP DAILY [facility] Last Admin: 01/24/17 09:05 Dose: 40 mg Gabapentin (Neurontin) 300 mg PO TID [facility] PRN Reason: Protocol Last Admin: 01/24/17 13:49 Dose: 300 mg Levetiracetam (Keppra 500mg Ivpb) 500 mg in 100 mls @ 400 mls/hr IVPB Q12 [facility] Last Admin: 01/24/17 09:06 Dose: 400 mls/hr Cefepime HCl (Maxipime 1gm) 1 gm in 100 mls @ 100 mls/hr IVPB Q8 [facility] PRN Reason: Protocol Last Admin: 01/24/17 13:48 Dose: 100 mls/hr Lorazepam (Ativan) 1 mg IVP Q6H PRN; Protocol PRN Reason: Symptoms of alcohol withdrawl Last Admin: 01/24/17 15:04 Dose: 1 mg Multivitamins/Minerals (Therapeutic-M Tab) 1 tab PO 0800 [facility] Last Admin: 01/24/17 09:06 Dose: 1 tab Pantoprazole Sodium (Protonix Susp) 40 mg PO 0600,1600 [facility] Last Admin: 01/24/17 06:24 Dose: 40 mg Sodium Chloride (Sodium Chloride Tab) 2 gm PO Q8H [facility] Last Admin: 01/24/17 13:49 Dose: 2 gm Thiamine HCl (Vitamin B1 Tab) 100 mg PO DAILY [facility] Last Admin: 01/24/17 09:06 Dose: 100 mg - Labs Labs: 01/24/17 07:00 01/24/17 07:00 PT 10.5 Seconds (9.9-11.8) 01/18/17 21:26 INR 0.97 (0.93-1.08) 01/18/17 21:26 APTT 29.5 Seconds (23.7-30.8) 01/18/17 21:26 - Head Exam Additional comments: - Constitutional Appears: Well, No Acute Distress - Head Exam Head Exam: NORMAL INSPECTION - Eye Exam Eye Exam: EOMI - ENT Exam ENT Exam: Normal Exam - Neck Exam Neck Exam: Full ROM - Respiratory Exam Respiratory Exam: Clear to Ausculation Bilateral. absent: Rales - Cardiovascular Exam Cardiovascular Exam: REGULAR RHYTHM, +S1, +S2 - GI/Abdominal Exam GI & Abdominal Exam: Soft, Normal Bowel Sounds. absent: Tenderness, Organomegaly - Extremities Exam Extremities Exam: Normal Inspection - Neurological Exam Neurological Exam: Alert, Awake, Oriented x3 - Psychiatric Exam Psychiatric exam: Normal Affect, Normal Mood Assessment and Plan - Assessment and Plan (Free Text) Assessment: 66 year old male with past medical history of chronic ETOH abuse who presented s /p fall secondary to alcohol intoxication. He was found to have subdural hemorrhage. Plan: 1. Subdural hemorrhage s/p fall - Serial CT heads have been stable. Neurology and neurosurgery evaluation were appreciated. Recommended to repeat CT head in 2 weeks. PT evaluation is requested. 2. Alcohol withdrawal - He was counselled on alcohol abstinence. He is on multivitamin, folic acid and thiamine. He is on ativan prn and tapering librium. 3. Hyponatremia - Sodium is improving to 126 this morning. Will follow up with nephrology recommendations. 4. SIRS - Patient has now been afebrile x 48 hrs. Workup was negative. He is empirically on cefepime. Consider to discontinue if okay with ID. 5. Hypokalemia / hypomagnesemia - Will replete and repeat. Continue with protonix for GI prophylaxis and SCDs for DVT prophylaxis. <Lauren Harrison MD - Last Filed: 01/27/17 14:59> Objective - Vital Signs/Intake and Output Vital Signs (last 24 hours): Temp Pulse Resp BP Pulse Ox 99.6 F 86 24 143/82 96 01/27/17 08:00 01/27/17 08:00 01/27/17 08:00 01/27/17 08:00 01/27/17 08:00 Intake and Output: 01/27/17 01/27/17 06:59 18:59 Intake Total 780 Balance 780 - Medications Medications: Current Medications Acetaminophen (Tylenol 325 Mg Supp) 325 mg RC Q6H PRN PRN Reason: Fever >100.4 F Last Admin: 01/23/17 06:00 Dose: 325 mg Acetaminophen (Tylenol 325mg Tab) 650 mg PO Q4H PRN PRN Reason: Fever >100.4 F Last Admin: 01/26/17 15:10 Dose: 650 mg Chlordiazepoxide (Librium) 5 mg PO Q8 [facility] PRN Reason: Protocol Last Admin: 01/27/17 14:24 Dose: 5 mg Folic Acid (Folic Acid) 1 mg PO DAILY [facility] Last Admin: 01/27/17 11:01 Dose: 1 mg Gabapentin (Neurontin) 300 mg PO TID [facility] PRN Reason: Protocol Last Admin: 01/27/17 14:23 Dose: 300 mg Levetiracetam (Keppra) 500 mg PO BID [facility] Last Admin: 01/27/17 11:00 Dose: 500 mg Lorazepam (Ativan) 1 mg IM Q6H PRN; Protocol PRN Reason: Symptoms of alcohol withdrawl Last Admin: 01/27/17 11:05 Dose: 1 mg Multivitamins/Minerals (Therapeutic-M Tab) 1 tab PO 0800 [facility] Last Admin: 01/27/17 08:34 Dose: 1 tab Pantoprazole Sodium (Protonix Susp) 40 mg PO 0600,1600 [facility] Last Admin: 01/27/17 06:22 Dose: Not Given Sodium Chloride (Sodium Chloride Tab) 2 gm PO Q8H [facility] Last Admin: 01/27/17 12:33 Dose: 2 gm Thiamine HCl (Vitamin B1 Tab) 100 mg PO DAILY [facility] Last Admin: 01/27/17 11:01 Dose: 100 mg - Labs Labs: 01/27/17 09:14 01/27/17 09:14 PT 10.5 Seconds (9.9-11.8) 01/18/17 21:26 INR 0.97 (0.93-1.08) 01/18/17 21:26 APTT 29.5 Seconds (23.7-30.8) 01/18/17 21:26 Attending/Attestation - Attestation I have personally seen and examined this patient.: Yes I have fully participated in the care of the patient.: Yes I have reviewed all pertinent clinical information, including history, physical exam and plan: Yes Notes (Text): 01/27/17 14:55 66 year old male with past medical history of chronic ETOH abuse who presented with H/O fall secondary to alcohol intoxication. He was found to have subdural hemorrhage and was admitted to the ICU. He was seen by neurology and neurosurgery and was managed conservatively. Repeat CT head showed stable findings. Patient alcohol withdrawal are better.. He was counselled on alcohol abstinence. Hyponatremia is worsened today, but patient is asymptometic.Nephrology is following.The etiology of hyponatremia is likely due to cerebral salt wasting syndrome or inappropriate ADH secretion. Prognosis is guarded.
--- NOTE | 2017-01-24 22:06 | CP.PCM.PN ---
Subjective - Date & Time of Evaluation Date of Evaluation: 01/24/17 Time of Evaluation: 22:03 - Subjective Subjective: S: It was requested to insert a heparin lock. has no complaints now. Pertinent medical record was reviewed. O: Last Vital Signs 3 Temp 99.4 F 01/24/17 16:00 Pulse 64 01/24/17 16:00 Resp 22 01/24/17 16:00 BP 131/76 01/24/17 16:00 Pulse Ox 98 01/24/17 16:00 Awake, alert, not in distress. LUNGS:Normal breathing pattern. A:Poor venous access. Encounter for intravenous line placement. P: # 24 angiocath was inserted in left index finger base. Objective - Vital Signs/Intake and Output Vital Signs (last 24 hours): Temp Pulse Resp BP Pulse Ox 99.4 F 64 22 131/76 98 01/24/17 16:00 01/24/17 16:00 01/24/17 16:00 01/24/17 16:00 01/24/17 16:00 Intake and Output: 01/24/17 01/25/17 18:59 06:59 Intake Total 640 180 Output Total 1600 Balance -960 180 - Medications Medications: Current Medications Acetaminophen (Tylenol 325 Mg Supp) 325 mg RC Q6H PRN PRN Reason: Fever >100.4 F Last Admin: 01/23/17 06:00 Dose: 325 mg Chlordiazepoxide (Librium) 10 mg PO Q8 [facility] PRN Reason: Protocol Last Admin: 01/24/17 13:49 Dose: 10 mg Folic Acid (Folic Acid) 1 mg PO DAILY [facility] Last Admin: 01/24/17 09:06 Dose: 1 mg Furosemide (Lasix) 40 mg IVP DAILY [facility] Last Admin: 01/24/17 09:05 Dose: 40 mg Gabapentin (Neurontin) 300 mg PO TID [facility] PRN Reason: Protocol Last Admin: 01/24/17 17:00 Dose: 300 mg Levetiracetam (Keppra 500mg Ivpb) 500 mg in 100 mls @ 400 mls/hr IVPB Q12 [facility] Last Admin: 01/24/17 22:00 Dose: 400 mls/hr Cefepime HCl (Maxipime 1gm) 1 gm in 100 mls @ 100 mls/hr IVPB Q8 [facility] PRN Reason: Protocol Last Admin: 01/24/17 13:48 Dose: 100 mls/hr Lorazepam (Ativan) 1 mg IVP Q6H PRN; Protocol PRN Reason: Symptoms of alcohol withdrawl Last Admin: 01/24/17 15:04 Dose: 1 mg Multivitamins/Minerals (Therapeutic-M Tab) 1 tab PO 0800 [facility] Last Admin: 01/24/17 09:06 Dose: 1 tab Pantoprazole Sodium (Protonix Susp) 40 mg PO 0600,1600 [facility] Last Admin: 01/24/17 16:58 Dose: 40 mg Sodium Chloride (Sodium Chloride Tab) 2 gm PO Q8H [facility] Last Admin: 01/24/17 13:49 Dose: 2 gm Thiamine HCl (Vitamin B1 Tab) 100 mg PO DAILY [facility] Last Admin: 01/24/17 09:06 Dose: 100 mg - Labs Labs: 01/24/17 07:00 01/24/17 07:00 PT 10.5 Seconds (9.9-11.8) 01/18/17 21:26 INR 0.97 (0.93-1.08) 01/18/17 21:26 APTT 29.5 Seconds (23.7-30.8) 01/18/17 21:26
[2017-01-25] MEDS: Cefepime 1gm in NS 100ml 1 GM/100 ML BAG IVPB SCH (06:39)
[2017-01-25] MEDS: Pantoprazole 40 mg Susp UD PO SCH ×2 (06:39→16:12)
[2017-01-25 07:10] LABS: BASO # 0.01 K/mm3 (0.0-2.0); BASO % 0.1 % (0.0-3.0); EOS # 0.2 (0.0-0.7); EOS % 2.2 % (1.5-5.0); GRAN # 5.79 (1.4-6.5); GRAN % 62.4 % (50.0-68.0); HEMATOCRIT 28.2 % (42.0-52.0); LYMPH # 1.3 (1.2-3.4); LYMPH % 14.1 % (22.0-35.0); MEAN CORPUSCULAR HEMOGLOBIN 29.7 pg (25.0-35.0); MEAN CORPUSCULAR HGB CONC 33.3 g/dl (31.0-37.0); MEAN PLATELET VOLUME 9.3 fl (7.0-11.0); MONO % 21.2 % (1.0-6.0); RED CELL DISTRIBUTION WIDTH 14.6 % (11.5-14.5); WHITE BLOOD COUNT 9.3 10^3/ul (4.5-11.0)
[2017-01-25 07:13] LABS: ALB/GLOB RATIO 1.1 (1.1-1.8); ALKALINE PHOSPHATASE 78 U/L (38-126); ALT/SGPT 34 U/L (7-56); AST/SGOT 46 U/L (17-59); BILIRUBIN,TOTAL 0.9 mg/dL (0.2-1.3); BLOOD UREA NITROGEN 11 mg/dL (7-21); CALCIUM 8.5 mg/dL (8.4-10.5); CARBON DIOXIDE 26 mmol/L (21-33); CHLORIDE 92 mmol/L (98-107); GFR AFRICAN-AMERICAN > 60; GLUCOSE,RANDOM 97 mg/dL (70-110); MAGNESIUM 1.6 mg/dL (1.7-2.2); PHOSPHOROUS 3.3 mg/dL (2.5-4.5); POTASSIUM 3.3 mmol/L (3.6-5.0); SODIUM 126 mmol/L (132-148); TOTAL PROTEIN 6.5 g/dL (5.8-8.3)
[2017-01-25] MEDS ORDERED: Magnesium Sulfate 2 GM in Sodium Chloride 0.9% 100 ML IVPB ONE (07:50)
[2017-01-25] MEDS: Multivitamin With Minerals Tab PO SCH (10:05)
[2017-01-25] MEDS: levETIRAcetam 500mg IVPB 500 MG/100 ML BAG IVPB SCH ×2 (10:07→21:57)
--- NOTE | 2017-01-25 11:23 | CP.PCM.PN ---
Subjective - Date & Time of Evaluation Date of Evaluation: 01/25/17 Time of Evaluation: 09:00 - Subjective Subjective: Patient seen and examined at bedside. No acute events reported overnight. Appears comfortable eating breakfast. Review of Systems - Review of Systems Systems not reviewed;Unavailable: Language Barrier All systems: reviewed and no additional remarkable complaints except - Constitutional Constitutional: absent: Fever, Chills - Cardiovascular Cardiovascular: absent: Chest Pain, Dyspnea - Respiratory Respiratory: absent: Cough, Dyspnea - Gastrointestinal Gastrointestinal: absent: Abdominal Pain, Nausea, Vomiting - Genitourinary Genitourinary: absent: Urinary Incontinence - Musculoskeletal Musculoskeletal: absent: Back Pain Objective - Vital Signs/Intake and Output Vital Signs (last 24 hours): Temp Pulse Resp BP Pulse Ox 97.5 F L 89 20 138/88 98 01/25/17 07:54 01/25/17 07:54 01/25/17 07:54 01/25/17 10:05 01/25/17 07:54 Intake and Output: 01/25/17 01/25/17 06:59 18:59 Intake Total 680 Balance 680 - Medications Medications: Current Medications Acetaminophen (Tylenol 325 Mg Supp) 325 mg RC Q6H PRN PRN Reason: Fever >100.4 F Last Admin: 01/23/17 06:00 Dose: 325 mg Chlordiazepoxide (Librium) 10 mg PO Q8 [facility] PRN Reason: Protocol Last Admin: 01/25/17 06:39 Dose: 10 mg Folic Acid (Folic Acid) 1 mg PO DAILY [facility] Last Admin: 01/25/17 10:05 Dose: 1 mg Furosemide (Lasix) 40 mg IVP DAILY [facility] Last Admin: 01/25/17 10:05 Dose: 40 mg Gabapentin (Neurontin) 300 mg PO TID [facility] PRN Reason: Protocol Last Admin: 01/25/17 10:05 Dose: 300 mg Levetiracetam (Keppra 500mg Ivpb) 500 mg in 100 mls @ 400 mls/hr IVPB Q12 [facility] Last Admin: 01/25/17 10:07 Dose: 400 mls/hr Cefepime HCl (Maxipime 1gm) 1 gm in 100 mls @ 100 mls/hr IVPB Q8 [facility] PRN Reason: Protocol Last Admin: 01/25/17 06:39 Dose: 100 mls/hr Potassium Chloride (Potassium Chloride 20 Meq/100 Ml) 20 meq in 100 mls @ 50 mls/hr IVPB Q2H [facility] Stop: 01/25/17 11:59 Lorazepam (Ativan) 1 mg IVP Q6H PRN; Protocol PRN Reason: Symptoms of alcohol withdrawl Last Admin: 01/24/17 15:04 Dose: 1 mg Multivitamins/Minerals (Therapeutic-M Tab) 1 tab PO 0800 [facility] Last Admin: 01/25/17 10:05 Dose: 1 tab Pantoprazole Sodium (Protonix Susp) 40 mg PO 0600,1600 [facility] Last Admin: 01/25/17 06:39 Dose: 40 mg Sodium Chloride (Sodium Chloride Tab) 2 gm PO Q8H [facility] Last Admin: 01/25/17 06:39 Dose: 2 gm Thiamine HCl (Vitamin B1 Tab) 100 mg PO DAILY [facility] Last Admin: 01/25/17 10:05 Dose: 100 mg - Labs Labs: 01/25/17 06:30 01/25/17 06:30 PT 10.5 Seconds (9.9-11.8) 01/18/17 21:26 INR 0.97 (0.93-1.08) 01/18/17 21:26 APTT 29.5 Seconds (23.7-30.8) 01/18/17 21:26 - Constitutional Appears: Well, No Acute Distress - Head Exam Head Exam: NORMAL INSPECTION - Eye Exam Eye Exam: EOMI - ENT Exam ENT Exam: Normal Exam - Neck Exam Neck Exam: Full ROM - Respiratory Exam Respiratory Exam: Clear to Ausculation Bilateral. absent: Rales - Cardiovascular Exam Cardiovascular Exam: REGULAR RHYTHM, +S1, +S2 - GI/Abdominal Exam GI & Abdominal Exam: Soft, Normal Bowel Sounds. absent: Tenderness, Organomegaly - Extremities Exam Extremities Exam: Normal Inspection - Neurological Exam Neurological Exam: Alert, Awake, Oriented x3 - Psychiatric Exam Psychiatric exam: Normal Affect, Normal Mood Assessment and Plan - Assessment and Plan (Free Text) Plan: 66 year old male with past medical history of chronic ETOH abuse who presented s /p fall secondary to alcohol intoxication. He was found to have subdural hemorrhage. 1. Subdural hemorrhage s/p fall - Serial CT heads have been stable. Neurology and neurosurgery evaluation were appreciated. Recommended to repeat CT head in 2 weeks. PT evaluation is requested. 2. Alcohol withdrawal - He was counselled on alcohol abstinence. He is on multivitamin, folic acid and thiamine. He is on ativan prn and tapering librium. 3. Hyponatremia - Sodium is improving to 126 this morning. Will follow up with nephrology recommendations. 4. SIRS - Patient has now been afebrile x 48 hrs. Workup was negative. He is empirically on cefepime. Consider to discontinue if okay with ID. 5. Hypokalemia / hypomagnesemia - Will replete and repeat. Continue with protonix for GI prophylaxis and SCDs for DVT prophylaxis.
[2017-01-25] MEDS ORDERED: Sodium Chloride 3% 500 ML IV SCH (12:15)
[2017-01-25 13:31] LABS: BLOOD UREA NITROGEN 11 mg/dL (7-21); CALCIUM 8.6 mg/dL (8.4-10.5); CARBON DIOXIDE 30 mmol/L (21-33); CHLORIDE 89 mmol/L (98-107); GFR AFRICAN-AMERICAN > 60; GLUCOSE,RANDOM 132 mg/dL (70-110); POTASSIUM 3.3 mmol/L (3.6-5.0); SODIUM 127 mmol/L (132-148)
--- NOTE | 2017-01-25 13:38 | PN ---
DATE: 01/25/2017 SUBJECTIVE: The patient is seen lying in bed. He is awake, able to talk unintelligibly, not following commands. PHYSICAL EXAMINATION: GENERAL: Thinly built elderly male lying in bed. VITAL SIGNS: Blood pressure 138/88, heart rate 89, respiratory rate 20, temperature 97.5. HEENT: Normocephalic, atraumatic. NECK: Supple, no JVD. LUNGS: Bilateral equal air entry, rales. CARDIAC: S1, S2. Regular, rate and rhythm, no murmur, no rub. ABDOMEN: Soft, nondistended, nontender, bowel sounds present. EXTREMITIES: No lower extremity edema. INTAKE AND OUTPUT: 1320/1600. LABORATORY DATA: WBC 9.3, hemoglobin 9.4, hematocrit 28, platelets 302. Sodium 126, potassium 3.3, chloride 92, CO2 of 26, BUN 11, creatinine 0.5, glucose 97, calcium 8.5, phosphorus 3.3 magnesium 1.7, albumin 3.4. Urinalysis yellow clear; pH 8.5; specific gravity 1015; protein, negative; ketones, negative; urobilinogen 2.0; leukocyte esterase, negative; urine osmolality 525 and stool occults positive. Cultures all negative. CURRENT MEDICATIONS: Ativan, folic acid, Keppra, Lasix 40 IV daily, Librium, Neurontin, Protonix, sodium chloride 2 g q. 8 h., Tylenol, thiamine, magnesium sulfate 2 g given this morning, cefepime 1 g q. 8 h., potassium 20 mEq to bags given this morning. ASSESSMENT: 1. Severe hyponatremia. 2. Subdural hematoma. 3. Alcohol intoxication. 4. Anemia with occult positive stools. 5. Hypomagnesemia. 6. Severe hypokalemia. PLAN 1. Continue salt tablets. 2. 3% sodium chloride at 10 mL/minute. 3. Agree with potassium supplementation. 4. Agree with magnesium supplementation. 5. Push p.o. intake. 6. Monitor daily electrolytes. Portia Vargas MD
[2017-01-26] MEDS: Pantoprazole 40 mg Susp UD PO SCH ×2 (05:49→15:10)
[2017-01-26 07:00] LABS: BASO # 0.03 K/mm3 (0.0-2.0); BASO % 0.4 % (0.0-3.0); EOS # 0.2 (0.0-0.7); EOS % 2.4 % (1.5-5.0); GRAN # 5.06 (1.4-6.5); GRAN % 59.5 % (50.0-68.0); HEMATOCRIT 30.8 % (42.0-52.0); LYMPH # 1.1 (1.2-3.4); LYMPH % 12.4 % (22.0-35.0); MEAN CELL VOLUME 90.9 fl (80.0-105.0); MEAN CORPUSCULAR HEMOGLOBIN 29.5 pg (25.0-35.0); MEAN CORPUSCULAR HGB CONC 32.5 g/dl (31.0-37.0); MONO # 2.2 (0.1-0.6); MONO % 25.3 % (1.0-6.0); RED CELL DISTRIBUTION WIDTH 14.6 % (11.5-14.5); WHITE BLOOD COUNT 8.5 10^3/ul (4.5-11.0)
[2017-01-26 07:10] LABS: ALKALINE PHOSPHATASE 76 U/L (38-126); ALT/SGPT 39 U/L (7-56); AST/SGOT 42 U/L (17-59); BILIRUBIN,TOTAL 0.7 mg/dL (0.2-1.3); BLOOD UREA NITROGEN 13 mg/dL (7-21); CALCIUM 8.7 mg/dL (8.4-10.5); CARBON DIOXIDE 29 mmol/L (21-33); CHLORIDE 94 mmol/L (98-107); GFR AFRICAN-AMERICAN > 60; GLUCOSE,RANDOM 101 mg/dL (70-110); MAGNESIUM 1.9 mg/dL (1.7-2.2); PHOSPHOROUS 3.2 mg/dL (2.5-4.5); POTASSIUM 3.6 mmol/L (3.6-5.0); SODIUM 129 mmol/L (132-148); TOTAL PROTEIN 6.7 g/dL (5.8-8.3)
[2017-01-26] MEDS: Multivitamin With Minerals Tab PO SCH (08:39)
--- NOTE | 2017-01-26 10:21 | CP.PCM.PN ---
Subjective - Date & Time of Evaluation Date of Evaluation: 01/26/17 Time of Evaluation: 08:00 - Subjective Subjective: Patient seen and examined at bedside. No acute events reported overnight. He appears comfortable and had breakfast earlier this morning. Exam in unchanged. He refused physical therapy yesterday and is not conversant this morning. Review of Systems - Review of Systems Systems not reviewed;Unavailable: Other (language barrier; not conversant this morning) Objective - Vital Signs/Intake and Output Vital Signs (last 24 hours): Temp Pulse Resp BP Pulse Ox 98 F 78 24 116/74 97 01/26/17 07:57 01/26/17 07:57 01/26/17 07:57 01/26/17 07:57 01/26/17 07:57 Intake and Output: 01/26/17 01/26/17 06:59 18:59 Intake Total 1280 Balance 1280 - Medications Medications: Current Medications Acetaminophen (Tylenol 325 Mg Supp) 325 mg RC Q6H PRN PRN Reason: Fever >100.4 F Last Admin: 01/23/17 06:00 Dose: 325 mg Acetaminophen (Tylenol 325mg Tab) 650 mg PO Q4H PRN PRN Reason: Fever >100.4 F Last Admin: 01/26/17 00:16 Dose: 650 mg Chlordiazepoxide (Librium) 10 mg PO Q8 [facility] PRN Reason: Protocol Last Admin: 01/26/17 05:48 Dose: 10 mg Folic Acid (Folic Acid) 1 mg PO DAILY [facility] Last Admin: 01/25/17 10:05 Dose: 1 mg Furosemide (Lasix) 40 mg IVP DAILY [facility] Last Admin: 01/25/17 10:05 Dose: 40 mg Gabapentin (Neurontin) 300 mg PO TID [facility] PRN Reason: Protocol Last Admin: 01/25/17 14:55 Dose: 300 mg Levetiracetam (Keppra 500mg Ivpb) 500 mg in 100 mls @ 400 mls/hr IVPB Q12 [facility] Last Admin: 01/25/17 21:57 Dose: 400 mls/hr Lorazepam (Ativan) 1 mg IVP Q6H PRN; Protocol PRN Reason: Symptoms of alcohol withdrawl Last Admin: 01/24/17 15:04 Dose: 1 mg Multivitamins/Minerals (Therapeutic-M Tab) 1 tab PO 0800 [facility] Last Admin: 01/26/17 08:39 Dose: 1 tab Pantoprazole Sodium (Protonix Susp) 40 mg PO 0600,1600 [facility] Last Admin: 01/26/17 05:49 Dose: 40 mg Sodium Chloride (Sodium Chloride Tab) 2 gm PO Q8H [facility] Last Admin: 01/26/17 05:49 Dose: 2 gm Thiamine HCl (Vitamin B1 Tab) 100 mg PO DAILY [facility] Last Admin: 01/25/17 10:05 Dose: 100 mg - Labs Labs: 01/26/17 06:40 01/26/17 06:40 PT 10.5 Seconds (9.9-11.8) 01/18/17 21:26 INR 0.97 (0.93-1.08) 01/18/17 21:26 APTT 29.5 Seconds (23.7-30.8) 01/18/17 21:26 - Constitutional Appears: Well, No Acute Distress, Chronically Ill - Head Exam Head Exam: NORMAL INSPECTION - Eye Exam Eye Exam: EOMI - Neck Exam Neck Exam: Full ROM - Respiratory Exam Respiratory Exam: Clear to Ausculation Bilateral. absent: Rales - Cardiovascular Exam Cardiovascular Exam: REGULAR RHYTHM, +S1, +S2 - GI/Abdominal Exam GI & Abdominal Exam: Soft, Normal Bowel Sounds. absent: Tenderness, Organomegaly - Extremities Exam Extremities Exam: Normal Inspection - Neurological Exam Neurological Exam: Alert, Awake - Psychiatric Exam Additional comments: not conversant Assessment and Plan - Assessment and Plan (Free Text) Plan: 66 year old male with past medical history of chronic ETOH abuse who presented s /p fall secondary to alcohol intoxication. He was found to have subdural hemorrhage. 1. Subdural hemorrhage s/p fall - Serial CT heads have been stable. Neurology and neurosurgery evaluation were appreciated. Recommended to repeat CT head in 2 weeks. PT evaluation is pending for d/c planning, although he refused yesterday. 2. Alcohol withdrawal - He was counselled on alcohol abstinence. He is on multivitamin, folic acid and thiamine. Will taper his librium to 5 mg q8h. He is on ativan prn as well which he has not been requiring. 3. Hyponatremia - Sodium is improving to 129 this morning. Nephrology is following the patient. 4. SIRS - Patient had temperatur of 100.4 last night. Workup was been negative. He is empirically on cefepime. Will follow up with ID recommendations. Continue with protonix for GI prophylaxis and SCDs for DVT prophylaxis. Will follow up with PT recommendations and discuss with test case developer / psych social worker regarding d/c planning.
[2017-01-26] MEDS: levETIRAcetam 500mg IVPB 500 MG/100 ML BAG IVPB SCH ×2 (10:50→19:03)
--- NOTE | 2017-01-26 15:35 | CP.PCM.PN ---
<Franny Dean - Last Filed: 01/26/17 15:33> Subjective - Date & Time of Evaluation Date of Evaluation: 01/26/17 Time of Evaluation: 15:33 - Subjective Subjective: PGY-2 as house doc on behalf of Dr Hernandez Attempted IV access with vein finder unsuccessful. Rash on neck so avoided EJ. A: Difficult IV access P: Mid-line consult tomorrow change IV ativan to IM s.r.d.w.Dr Hernandez Objective - Vital Signs/Intake and Output Vital Signs (last 24 hours): Temp Pulse Resp BP Pulse Ox 98 F 78 24 116/74 97 01/26/17 07:57 01/26/17 07:57 01/26/17 07:57 01/26/17 07:57 01/26/17 07:57 Intake and Output: 01/26/17 01/26/17 06:59 18:59 Intake Total 1280 Balance 1280 - Medications Medications: Current Medications Acetaminophen (Tylenol 325 Mg Supp) 325 mg RC Q6H PRN PRN Reason: Fever >100.4 F Last Admin: 01/23/17 06:00 Dose: 325 mg Acetaminophen (Tylenol 325mg Tab) 650 mg PO Q4H PRN PRN Reason: Fever >100.4 F Last Admin: 01/26/17 15:10 Dose: 650 mg Chlordiazepoxide (Librium) 5 mg PO Q8 [facility] PRN Reason: Protocol Last Admin: 01/26/17 13:13 Dose: 5 mg Folic Acid (Folic Acid) 1 mg PO DAILY [facility] Last Admin: 01/26/17 10:51 Dose: 1 mg Gabapentin (Neurontin) 300 mg PO TID [facility] PRN Reason: Protocol Last Admin: 01/26/17 13:17 Dose: 300 mg Levetiracetam (Keppra) 500 mg PO BID [facility] Last Admin: 01/26/17 15:10 Dose: 500 mg Lorazepam (Ativan) 1 mg IVP Q6H PRN; Protocol PRN Reason: Symptoms of alcohol withdrawl Last Admin: 01/24/17 15:04 Dose: 1 mg Multivitamins/Minerals (Therapeutic-M Tab) 1 tab PO 0800 [facility] Last Admin: 01/26/17 08:39 Dose: 1 tab Pantoprazole Sodium (Protonix Susp) 40 mg PO 0600,1600 [facility] Last Admin: 01/26/17 15:10 Dose: 40 mg Sodium Chloride (Sodium Chloride Tab) 2 gm PO Q8H [facility] Last Admin: 01/26/17 12:59 Dose: 2 gm Thiamine HCl (Vitamin B1 Tab) 100 mg PO DAILY [facility] Last Admin: 01/26/17 10:51 Dose: 100 mg - Labs Labs: 01/26/17 06:40 01/26/17 06:40 PT 10.5 Seconds (9.9-11.8) 01/18/17 21:26 INR 0.97 (0.93-1.08) 01/18/17 21:26 APTT 29.5 Seconds (23.7-30.8) 01/18/17 21:26 <Brenda Hernandez - Last Filed: 01/26/17 15:38> Objective - Vital Signs/Intake and Output Vital Signs (last 24 hours): Temp Pulse Resp BP Pulse Ox 98 F 78 24 116/74 97 01/26/17 07:57 01/26/17 07:57 01/26/17 07:57 01/26/17 07:57 01/26/17 07:57 Intake and Output: 01/26/17 01/26/17 06:59 18:59 Intake Total 1280 Balance 1280 - Medications Medications: Current Medications Acetaminophen (Tylenol 325 Mg Supp) 325 mg RC Q6H PRN PRN Reason: Fever >100.4 F Last Admin: 01/23/17 06:00 Dose: 325 mg Acetaminophen (Tylenol 325mg Tab) 650 mg PO Q4H PRN PRN Reason: Fever >100.4 F Last Admin: 01/26/17 15:10 Dose: 650 mg Chlordiazepoxide (Librium) 5 mg PO Q8 [facility] PRN Reason: Protocol Last Admin: 01/26/17 13:13 Dose: 5 mg Folic Acid (Folic Acid) 1 mg PO DAILY [facility] Last Admin: 01/26/17 10:51 Dose: 1 mg Gabapentin (Neurontin) 300 mg PO TID [facility] PRN Reason: Protocol Last Admin: 01/26/17 13:17 Dose: 300 mg Levetiracetam (Keppra) 500 mg PO BID [facility] Last Admin: 01/26/17 15:10 Dose: 500 mg Lorazepam (Ativan) 1 mg IM Q6H PRN; Protocol PRN Reason: Symptoms of alcohol withdrawl Multivitamins/Minerals (Therapeutic-M Tab) 1 tab PO 0800 [facility] Last Admin: 01/26/17 08:39 Dose: 1 tab Pantoprazole Sodium (Protonix Susp) 40 mg PO 0600,1600 [facility] Last Admin: 01/26/17 15:10 Dose: 40 mg Sodium Chloride (Sodium Chloride Tab) 2 gm PO Q8H [facility] Last Admin: 01/26/17 12:59 Dose: 2 gm Thiamine HCl (Vitamin B1 Tab) 100 mg PO DAILY [facility] Last Admin: 01/26/17 10:51 Dose: 100 mg - Labs Labs: 01/26/17 06:40 01/26/17 06:40 PT 10.5 Seconds (9.9-11.8) 01/18/17 21:26 INR 0.97 (0.93-1.08) 01/18/17 21:26 APTT 29.5 Seconds (23.7-30.8) 01/18/17 21:26
--- NOTE | 2017-01-26 18:28 | CP.PCM.PN ---
Subjective - Date & Time of Evaluation Date of Evaluation: 01/26/17 Time of Evaluation: 11:15 - Subjective Subjective: Still having occasional low grade fevers. Not in distress. Objective - Vital Signs/Intake and Output Vital Signs (last 24 hours): Temp Pulse Resp BP Pulse Ox 99.9 F H 71 20 140/80 98 01/24/17 08:00 01/24/17 08:00 01/24/17 08:00 01/24/17 09:05 01/24/17 08:00 Intake and Output: 01/24/17 01/24/17 06:59 18:59 Intake Total 1600 Output Total 2200 Balance -600 - Medications Medications: Current Medications Acetaminophen (Tylenol 325 Mg Supp) 325 mg RC Q6H PRN PRN Reason: Fever >100.4 F Last Admin: 01/23/17 06:00 Dose: 325 mg Chlordiazepoxide (Librium) 10 mg PO Q8 [facility] PRN Reason: Protocol Last Admin: 01/24/17 06:23 Dose: 10 mg Folic Acid (Folic Acid) 1 mg PO DAILY [facility] Last Admin: 01/24/17 09:06 Dose: 1 mg Furosemide (Lasix) 40 mg IVP DAILY [facility] Last Admin: 01/24/17 09:05 Dose: 40 mg Gabapentin (Neurontin) 300 mg PO TID [facility] PRN Reason: Protocol Last Admin: 01/24/17 09:06 Dose: 300 mg Levetiracetam (Keppra 500mg Ivpb) 500 mg in 100 mls @ 400 mls/hr IVPB Q12 [facility] Last Admin: 01/24/17 09:06 Dose: 400 mls/hr Cefepime HCl (Maxipime 1gm) 1 gm in 100 mls @ 100 mls/hr IVPB Q8 [facility] PRN Reason: Protocol Last Admin: 01/24/17 05:34 Dose: 100 mls/hr Lorazepam (Ativan) 1 mg IVP Q6H PRN; Protocol PRN Reason: Symptoms of alcohol withdrawl Last Admin: 01/24/17 01:02 Dose: 1 mg Multivitamins/Minerals (Therapeutic-M Tab) 1 tab PO 0800 [facility] Last Admin: 01/24/17 09:06 Dose: 1 tab Pantoprazole Sodium (Protonix Susp) 40 mg PO 0600,1600 [facility] Last Admin: 01/24/17 06:24 Dose: 40 mg Sodium Chloride (Sodium Chloride Tab) 2 gm PO Q8H [facility] Last Admin: 01/24/17 04:26 Dose: 2 gm Thiamine HCl (Vitamin B1 Tab) 100 mg PO DAILY [facility] Last Admin: 01/24/17 09:06 Dose: 100 mg - Labs Labs: 01/24/17 07:00 01/24/17 07:00 PT 10.5 Seconds (9.9-11.8) 01/18/17 21:26 INR 0.97 (0.93-1.08) 01/18/17 21:26 APTT 29.5 Seconds (23.7-30.8) 01/18/17 21:26 - Constitutional Appears: Non-toxic, No Acute Distress - Head Exam Head Exam: NORMAL INSPECTION - ENT Exam ENT Exam: Mucous Membranes Moist - Neck Exam Neck Exam: absent: Meningismus - Respiratory Exam Respiratory Exam: Decreased Breath Sounds - Cardiovascular Exam Cardiovascular Exam: +S1, +S2 - GI/Abdominal Exam GI & Abdominal Exam: Soft. absent: Tenderness Assessment and Plan - Assessment and Plan (Free Text) Plan: Assessment systemic inflammatory response syndrome, R/O due to alcohol withdrawal syndrome , R/O due to subdural hematoma, no source of sepsis identified chronic alcoholism GERD gastritis S/P cholecystectomy S/P appendectomy Plan will continue to monitor off antibiotics since he is at risk for nosocomial infections
--- NOTE | 2017-01-26 20:12 | PN ---
NEPHROLOGY FOLLOWUP NOTE SUBJECTIVE: A 66-year-old male with past medical history of alcohol abuse, admitted with acute subdural hematoma, nephrology following for hyponatremia. Per nursing staff, the patient is eating well, refused physical therapy when they came to evaluate him today, not getting out of bed. PHYSICAL EXAMINATION VITAL SIGNS: This afternoon, blood pressure 108/70, heart rate 99, respirations 20, temperature 98.7, T-max 100.4 over past 24 hours, O2 sat 97% on room air. GENERAL: No distress. HEENT: Moist mucous membranes. Nonicteric. RESPIRATORY: Lungs clear to auscultation bilaterally. No rales, no rhonchi, no wheezes. HEART: S1 and S2 normal. No murmurs, no gallops, no rubs. ABDOMEN: Soft, nontender, nondistended. GENITOURINARY: No bladder distention. EXTREMITIES: No leg edema. SKIN: Warm. No cyanosis. LABORATORY DATA: This morning, CBC; WBC 8.5, hemoglobin 10.0, hematocrit 30.8, platelets 359. Chemistry panel: Sodium 129, potassium 3.6, chloride 94, bicarb 29, BUN 13, creatinine 0.5, glucose 101, albumin 3.4. ASSESSMENT AND PLAN: 1. Hyponatremia. Again, main differentials are cerebral salt wasting versus syndrome of inappropriate antidiuretic hormone secretion. Tend to favor syndrome of inappropriate antidiuretic hormone secretion as we cannot find any objective sign of volume depletion. The patient currently getting salt tablets 2 g q. 8 hours and had IV Lasix 40 mg daily added; while this combination has been helpful in increasing serum sodium, but the patient has been mildly hypokalemic and Lasix can result in volume depletion depending on the patient's p.o. intake; we will discontinue Lasix and assess hyponatremia with just salt tablets, continue to fluid restrict the patient to less than 1 liter free water per day. 2. Subdural hematoma likely causing syndrome of inappropriate antidiuretic hormone secretion, see above. 3. Systemic inflammatory response syndrome. The patient again spiking fever, currently not on any antibiotics, follow up repeat blood cultures. Jair Holder MD [facility] # [id number]
--- NOTE | 2017-01-26 20:51 | CP.PCM.PN ---
Subjective - Date & Time of Evaluation Date of Evaluation: 01/26/17 Time of Evaluation: 20:50 - Subjective Subjective: # 22 angiocath was inserted in left hand with difficulty. Objective - Vital Signs/Intake and Output Vital Signs (last 24 hours): Temp Pulse Resp BP Pulse Ox 98.8 F 99 H 20 108/70 97 01/26/17 16:21 01/26/17 16:21 01/26/17 16:21 01/26/17 16:21 01/26/17 16:21 Intake and Output: 01/26/17 01/27/17 18:59 06:59 Intake Total 640 Balance 640 - Medications Medications: Current Medications Acetaminophen (Tylenol 325 Mg Supp) 325 mg RC Q6H PRN PRN Reason: Fever >100.4 F Last Admin: 01/23/17 06:00 Dose: 325 mg Acetaminophen (Tylenol 325mg Tab) 650 mg PO Q4H PRN PRN Reason: Fever >100.4 F Last Admin: 01/26/17 15:10 Dose: 650 mg Chlordiazepoxide (Librium) 5 mg PO Q8 [facility] PRN Reason: Protocol Last Admin: 01/26/17 13:13 Dose: 5 mg Folic Acid (Folic Acid) 1 mg PO DAILY [facility] Last Admin: 01/26/17 10:51 Dose: 1 mg Gabapentin (Neurontin) 300 mg PO TID [facility] PRN Reason: Protocol Last Admin: 01/26/17 18:02 Dose: 300 mg Levetiracetam (Keppra) 500 mg PO BID [facility] Last Admin: 01/26/17 15:10 Dose: 500 mg Lorazepam (Ativan) 1 mg IM Q6H PRN; Protocol PRN Reason: Symptoms of alcohol withdrawl Multivitamins/Minerals (Therapeutic-M Tab) 1 tab PO 0800 [facility] Last Admin: 01/26/17 08:39 Dose: 1 tab Pantoprazole Sodium (Protonix Susp) 40 mg PO 0600,1600 [facility] Last Admin: 01/26/17 15:10 Dose: 40 mg Sodium Chloride (Sodium Chloride Tab) 2 gm PO Q8H [facility] Last Admin: 01/26/17 12:59 Dose: 2 gm Thiamine HCl (Vitamin B1 Tab) 100 mg PO DAILY [facility] Last Admin: 01/26/17 10:51 Dose: 100 mg - Labs Labs: 01/26/17 06:40 01/26/17 06:40 PT 10.5 Seconds (9.9-11.8) 01/18/17 21:26 INR 0.97 (0.93-1.08) 01/18/17 21:26 APTT 29.5 Seconds (23.7-30.8) 01/18/17 21:26
[2017-01-27] MEDS: Pantoprazole 40 mg Susp UD PO SCH ×2 (06:22→16:41)
[2017-01-27 07:55] LABS: MAGNESIUM 1.6 mg/dL (1.7-2.2); PHOSPHOROUS 2.9 mg/dL (2.5-4.5)
[2017-01-27] MEDS: Multivitamin With Minerals Tab PO SCH (08:34)
[2017-01-27] MEDS ORDERED: Magnesium Sulfate 2 GM in Sodium Chloride 0.9% 100 ML IV ONE (09:13)
[2017-01-27 09:25] LABS: BASO # 0.05 K/mm3 (0.0-2.0); BASO % 0.5 % (0.0-3.0); EOS # 0.2 (0.0-0.7); EOS % 2.1 % (1.5-5.0); GRAN # 6.56 (1.4-6.5); GRAN % 66.7 % (50.0-68.0); HEMATOCRIT 30.4 % (42.0-52.0); LYMPH # 1.3 (1.2-3.4); LYMPH % 12.7 % (22.0-35.0); MEAN CELL VOLUME 91.3 fl (80.0-105.0); MEAN CORPUSCULAR HEMOGLOBIN 29.7 pg (25.0-35.0); MEAN CORPUSCULAR HGB CONC 32.6 g/dl (31.0-37.0); MEAN PLATELET VOLUME 9.3 fl (7.0-11.0); MONO # 1.8 (0.1-0.6); RED CELL DISTRIBUTION WIDTH 14.6 % (11.5-14.5); WHITE BLOOD COUNT 9.8 10^3/ul (4.5-11.0)
[2017-01-27 09:36] LABS: BLOOD UREA NITROGEN 11 mg/dL (7-21); CALCIUM 9.1 mg/dL (8.4-10.5); CARBON DIOXIDE 28 mmol/L (21-33); CHLORIDE 91 mmol/L (95-110); GFR AFRICAN-AMERICAN > 60; GLUCOSE,RANDOM 108 mg/dL (70-110); POTASSIUM 3.9 mmol/L (3.6-5.0); SODIUM 127 mmol/L (132-148)
--- NOTE | 2017-01-27 14:20 | CP.PCM.PN ---
Subjective - Date & Time of Evaluation Date of Evaluation: 01/27/17 Time of Evaluation: 12:35 - Subjective Subjective: Eating his lunch ok, no fevers overnight, not in distress. Objective - Vital Signs/Intake and Output Vital Signs (last 24 hours): Temp Pulse Resp BP Pulse Ox 98.8 F 99 H 20 108/70 97 01/26/17 16:21 01/26/17 16:21 01/26/17 16:21 01/26/17 16:21 01/26/17 16:21 Intake and Output: 01/26/17 01/26/17 06:59 18:59 Intake Total 1280 640 Balance 1280 640 - Medications Medications: Current Medications Acetaminophen (Tylenol 325 Mg Supp) 325 mg RC Q6H PRN PRN Reason: Fever >100.4 F Last Admin: 01/23/17 06:00 Dose: 325 mg Acetaminophen (Tylenol 325mg Tab) 650 mg PO Q4H PRN PRN Reason: Fever >100.4 F Last Admin: 01/26/17 15:10 Dose: 650 mg Chlordiazepoxide (Librium) 5 mg PO Q8 [facility] PRN Reason: Protocol Last Admin: 01/26/17 13:13 Dose: 5 mg Folic Acid (Folic Acid) 1 mg PO DAILY [facility] Last Admin: 01/26/17 10:51 Dose: 1 mg Gabapentin (Neurontin) 300 mg PO TID [facility] PRN Reason: Protocol Last Admin: 01/26/17 18:02 Dose: 300 mg Levetiracetam (Keppra) 500 mg PO BID [facility] Last Admin: 01/26/17 15:10 Dose: 500 mg Lorazepam (Ativan) 1 mg IM Q6H PRN; Protocol PRN Reason: Symptoms of alcohol withdrawl Multivitamins/Minerals (Therapeutic-M Tab) 1 tab PO 0800 [facility] Last Admin: 01/26/17 08:39 Dose: 1 tab Pantoprazole Sodium (Protonix Susp) 40 mg PO 0600,1600 [facility] Last Admin: 01/26/17 15:10 Dose: 40 mg Sodium Chloride (Sodium Chloride Tab) 2 gm PO Q8H [facility] Last Admin: 01/26/17 12:59 Dose: 2 gm Thiamine HCl (Vitamin B1 Tab) 100 mg PO DAILY [facility] Last Admin: 01/26/17 10:51 Dose: 100 mg - Labs Labs: 01/26/17 06:40 01/26/17 06:40 PT 10.5 Seconds (9.9-11.8) 01/18/17 21:26 INR 0.97 (0.93-1.08) 01/18/17 21:26 APTT 29.5 Seconds (23.7-30.8) 01/18/17 21:26 - Constitutional Appears: Non-toxic, No Acute Distress - Head Exam Head Exam: NORMAL INSPECTION - ENT Exam ENT Exam: Mucous Membranes Moist - Neck Exam Neck Exam: absent: Meningismus - Respiratory Exam Respiratory Exam: Decreased Breath Sounds - Cardiovascular Exam Cardiovascular Exam: +S1, +S2 - GI/Abdominal Exam GI & Abdominal Exam: Soft. absent: Tenderness Assessment and Plan - Assessment and Plan (Free Text) Plan: Assessment systemic inflammatory response syndrome, probably due to alcohol withdrawal syndrome, R/O due to subdural hematoma, no source of sepsis identified chronic alcoholism GERD gastritis S/P cholecystectomy S/P appendectomy Plan will continue to monitor off antibiotics since he is at risk for hospital- acquired infections
--- NOTE | 2017-01-27 18:24 | CP.PCM.PN ---
Subjective - Date & Time of Evaluation Date of Evaluation: 01/27/17 Time of Evaluation: 11:00 - Subjective Subjective: Patient repeatedly reporting pain per nursing staff; tolerating diet well; not getting out of bed; Objective - Vital Signs/Intake and Output Vital Signs (last 24 hours): Temp Pulse Resp BP Pulse Ox 98.8 F 94 H 22 130/86 96 01/27/17 16:09 01/27/17 16:09 01/27/17 16:09 01/27/17 16:09 01/27/17 16:09 Intake and Output: 01/27/17 01/27/17 06:59 18:59 Intake Total 780 Balance 780 - Medications Medications: Current Medications Acetaminophen (Tylenol 325 Mg Supp) 325 mg RC Q6H PRN PRN Reason: Fever >100.4 F Last Admin: 01/23/17 06:00 Dose: 325 mg Acetaminophen (Tylenol 325mg Tab) 650 mg PO Q4H PRN PRN Reason: Fever >100.4 F Last Admin: 01/26/17 15:10 Dose: 650 mg Chlordiazepoxide (Librium) 5 mg PO Q8 [facility] PRN Reason: Protocol Last Admin: 01/27/17 14:24 Dose: 5 mg Folic Acid (Folic Acid) 1 mg PO DAILY [facility] Last Admin: 01/27/17 11:01 Dose: 1 mg Gabapentin (Neurontin) 300 mg PO TID [facility] PRN Reason: Protocol Last Admin: 01/27/17 18:14 Dose: 300 mg Levetiracetam (Keppra) 500 mg PO BID [facility] Last Admin: 01/27/17 18:14 Dose: 500 mg Lorazepam (Ativan) 1 mg IM Q6H PRN; Protocol PRN Reason: Symptoms of alcohol withdrawl Last Admin: 01/27/17 11:05 Dose: 1 mg Multivitamins/Minerals (Therapeutic-M Tab) 1 tab PO 0800 [facility] Last Admin: 01/27/17 08:34 Dose: 1 tab Pantoprazole Sodium (Protonix Susp) 40 mg PO 0600,1600 [facility] Last Admin: 01/27/17 16:41 Dose: 40 mg Sodium Chloride (Sodium Chloride Tab) 2 gm PO Q8H [facility] Last Admin: 01/27/17 18:14 Dose: 2 gm Thiamine HCl (Vitamin B1 Tab) 100 mg PO DAILY [facility] Last Admin: 01/27/17 11:01 Dose: 100 mg - Labs Labs: 01/27/17 09:14 01/27/17 09:14 PT 10.5 Seconds (9.9-11.8) 01/18/17 21:26 INR 0.97 (0.93-1.08) 01/18/17 21:26 APTT 29.5 Seconds (23.7-30.8) 01/18/17 21:26 - Constitutional Appears: Non-toxic, No Acute Distress - Head Exam Head Exam: NORMAL INSPECTION - Eye Exam Eye Exam: Normal appearance - ENT Exam ENT Exam: Mucous Membranes Moist - Respiratory Exam Respiratory Exam: Clear to Ausculation Bilateral. absent: Rales, Rhonchi, Wheezes, Respiratory Distress - Cardiovascular Exam Cardiovascular Exam: RRR, +S1, +S2 - GI/Abdominal Exam GI & Abdominal Exam: Soft. absent: Distended, Tenderness - Extremities Exam Additional comments: no leg edema; - Neurological Exam Neurological Exam: Alert, Awake - Skin Skin Exam: Normal Color, Warm. absent: Cyanosis Assessment and Plan (1) Hyponatremia Assessment & Plan: Still question of SIADH v cerebral salt wasting in the setting of subdural hematoma; has orthostatic changes on nursing assessment today (BP previously stable but patient not getting out of bed); also, despite fluid restriction and on salt tabs, serum Na has been decreasing; -Giving saline load with NS at 200 cc/hr (patient's Na had remained stable on hypertonic 3% saline at 30 cc/hr, our goal is to double the salt load and assess ) -If serum Na drops further, likely SIADH and will start tolvaptan -Repeat Ur Na and Osm Status: Acute (2) Subdural hematoma Assessment & Plan: Stable but likely causing hyponatremia as above; unclear how long effect will last although should be self limited; Status: Acute (3) Alcohol withdrawal Assessment & Plan: Stable; lasix stopped as patient will be prone to metabolic deficiencies in the setting of ETOH abuse as outpatient (lasix was actually helping hyponatremia); Status: Acute (4) Hypokalemia Assessment & Plan: Resolved; mag being replenished today; monitor; Status: Acute
[2017-01-27] MEDS: Sodium Chloride 0.9% 1,000 ML IV SCH (18:48)
[2017-01-27 20:33] LABS: BLOOD UREA NITROGEN 9 mg/dL (7-21); CALCIUM 8.7 mg/dL (8.4-10.5); CARBON DIOXIDE 27 mmol/L (21-33); CHLORIDE 93 mmol/L (98-107); GFR AFRICAN-AMERICAN > 60; GLUCOSE,RANDOM 121 mg/dL (70-110); SODIUM 126 mmol/L (132-148)
--- NOTE | 2017-01-27 21:35 | CP.PCM.PN ---
<Nazario Stoll - Last Filed: 01/30/17 07:20> Subjective - Date & Time of Evaluation Date of Evaluation: 01/27/17 Time of Evaluation: 21:34 - Subjective Subjective: Patient seen and examined at bedside. Patient is new to me, and I was told he did speak before, but since this admission, he has not spoken a word (in Welsh or in [place]) or answered a question. Objective - Vital Signs/Intake and Output Vital Signs (last 24 hours): Temp Pulse Resp BP Pulse Ox 98.8 F 94 H 22 130/86 96 01/27/17 16:09 01/27/17 16:09 01/27/17 16:09 01/27/17 16:09 01/27/17 16:09 Intake and Output: 01/27/17 01/28/17 18:59 06:59 Intake Total 540 Output Total 200 Balance 340 - Medications Medications: Current Medications Acetaminophen (Tylenol 325 Mg Supp) 325 mg RC Q6H PRN PRN Reason: Fever >100.4 F Last Admin: 01/23/17 06:00 Dose: 325 mg Acetaminophen (Tylenol 325mg Tab) 650 mg PO Q4H PRN PRN Reason: Fever >100.4 F Last Admin: 01/26/17 15:10 Dose: 650 mg Chlordiazepoxide (Librium) 5 mg PO Q8 [facility] PRN Reason: Protocol Last Admin: 01/27/17 14:24 Dose: 5 mg Folic Acid (Folic Acid) 1 mg PO DAILY [facility] Last Admin: 01/27/17 11:01 Dose: 1 mg Gabapentin (Neurontin) 300 mg PO TID [facility] PRN Reason: Protocol Last Admin: 01/27/17 18:14 Dose: 300 mg Sodium Chloride (Sodium Chloride 0.9%) 1,000 mls @ 200 mls/hr IV .Q5H [facility] Last Admin: 01/27/17 18:48 Dose: 200 mls/hr Levetiracetam (Keppra) 500 mg PO BID [facility] Last Admin: 01/27/17 18:14 Dose: 500 mg Lorazepam (Ativan) 1 mg IM Q6H PRN; Protocol PRN Reason: Symptoms of alcohol withdrawl Last Admin: 01/27/17 11:05 Dose: 1 mg Multivitamins/Minerals (Therapeutic-M Tab) 1 tab PO 0800 [facility] Last Admin: 01/27/17 08:34 Dose: 1 tab Pantoprazole Sodium (Protonix Susp) 40 mg PO 0600,1600 [facility] Last Admin: 01/27/17 16:41 Dose: 40 mg Sodium Chloride (Sodium Chloride Tab) 2 gm PO Q8H [facility] Last Admin: 01/27/17 18:14 Dose: 2 gm Thiamine HCl (Vitamin B1 Tab) 100 mg PO DAILY [facility] Last Admin: 01/27/17 11:01 Dose: 100 mg - Labs Labs: 01/27/17 09:14 01/27/17 20:19 PT 10.5 Seconds (9.9-11.8) 01/18/17 21:26 INR 0.97 (0.93-1.08) 01/18/17 21:26 APTT 29.5 Seconds (23.7-30.8) 01/18/17 21:26 - Constitutional Appears: Well Assessment and Plan - Assessment and Plan (Free Text) Assessment: 66 year old male with past medical history of chronic ETOH abuse who presented with H/O fall secondary to alcohol intoxication. He was found to have subdural hemorrhage and was admitted to the ICU. He was seen by neurology and neurosurgery and was managed conservatively. Repeat CT head showed stable findings. Patient is also hyponatremic. Plan: 66 year old male with past medical history of chronic ETOH abuse who presented with H/O fall secondary to alcohol intoxication. He was found to have subdural hemorrhage and was admitted to the ICU. He was seen by neurology and neurosurgery and was managed conservatively. Repeat CT head showed stable findings. Patient is also hyponatremic. 1. Subdural hemorrhage s/p fall - Serial CT heads have been stable. Neurology and neurosurgery evaluation were appreciated. Recommended to repeat CT head in 2 weeks. Patient does not has any focal deficit, he is not ambulatory, he was encouraged to participate in physical therapy. 2. 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 2. Alcohol withdrawal - He was counselled on alcohol abstinence. He is on multivitamin, folic acid and thiamine.No sign of alcohol withdrawal at this time. 4. Leukocytosis.- Patient has now been afebrile x 48 hrs. Workup was negative. He is off antibiotics, we will monitor. 5. Deconditiong, Prognosis is guarded. Management plan was discussed in detail with patient Education was provided. <Christy GOYAL,Lauren - Last Filed: 01/31/17 18:08> Objective - Vital Signs/Intake and Output Vital Signs (last 24 hours): Temp Pulse Resp BP Pulse Ox 99 F 95 H 22 140/89 96 01/31/17 00:00 01/31/17 00:00 01/31/17 00:00 01/31/17 00:00 01/31/17 00:00 Intake and Output: 01/31/17 01/31/17 06:59 18:59 Intake Total 1000 Balance 1000 - Medications Medications: Current Medications Acetaminophen (Tylenol 325 Mg Supp) 325 mg RC Q6H PRN PRN Reason: Fever >100.4 F Last Admin: 01/23/17 06:00 Dose: 325 mg Acetaminophen (Tylenol 325mg Tab) 650 mg PO Q4H PRN PRN Reason: Fever >100.4 F Last Admin: 01/30/17 16:33 Dose: 650 mg Folic Acid (Folic Acid) 1 mg PO DAILY [facility] Last Admin: 01/31/17 10:51 Dose: 1 mg Gabapentin (Neurontin) 300 mg PO TID [facility] PRN Reason: Protocol Last Admin: 01/31/17 14:21 Dose: 300 mg Levetiracetam (Keppra) 500 mg PO BID [facility] Last Admin: 01/31/17 10:50 Dose: 500 mg Lorazepam (Ativan) 1 mg IM Q6H PRN; Protocol PRN Reason: Symptoms of alcohol withdrawl Last Admin: 01/29/17 10:02 Dose: 1 mg Multivitamins/Minerals (Therapeutic-M Tab) 1 tab PO 0800 [facility] Last Admin: 01/31/17 08:17 Dose: 1 tab Pantoprazole Sodium (Protonix Susp) 40 mg PO 0600,1600 [facility] Last Admin: 01/31/17 06:18 Dose: 40 mg Sodium Chloride (Sodium Chloride Tab) 2 gm PO Q6H [facility] Last Admin: 01/31/17 14:21 Dose: 2 gm Thiamine HCl (Vitamin B1 Tab) 100 mg PO DAILY [facility] Last Admin: 01/31/17 10:50 Dose: 100 mg - Labs Labs: 01/29/17 09:07 01/31/17 06:30 PT 10.5 Seconds (9.9-11.8) 01/18/17 21:26 INR 0.97 (0.93-1.08) 01/18/17 21:26 APTT 29.5 Seconds (23.7-30.8) 01/18/17 21:26 Attending/Attestation - Attestation I have personally seen and examined this patient.: Yes I have fully participated in the care of the patient.: Yes I have reviewed all pertinent clinical information, including history, physical exam and plan: Yes Notes (Text): 01/31/17 18:07 66 year old male with past medical history of chronic ETOH abuse who presented with H/O fall secondary to alcohol intoxication. He was found to have subdural hemorrhage and was admitted to the ICU. He was seen by neurology and neurosurgery and was managed conservatively. Repeat CT head showed stable findings. Patient is also hyponatremic.- Serial CT heads have been stable. Neurology and neurosurgery evaluation were appreciated. Recommended to repeat CT head in 2 weeks. Patient does not has any focal deficit, he is not ambulatory, he was encouraged to participate in physical therapy. 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 Alcohol withdrawal - He was counselled on alcohol abstinence. He is on multivitamin, folic acid and thiamine.No sign of alcohol withdrawal at this time. Management plan was discussed in detail with patient Education was provided.
[2017-01-28] MEDS: Sodium Chloride 0.9% 1,000 ML IV SCH ×5 (02:15→20:07)
[2017-01-28] MEDS: Pantoprazole 40 mg Susp UD PO SCH ×2 (05:43→17:25)
[2017-01-28] MEDS: Multivitamin With Minerals Tab PO SCH (09:48)
[2017-01-28 10:24] LABS: ALKALINE PHOSPHATASE 81 U/L (38-126); ALT/SGPT 48 U/L (7-56); AST/SGOT 62 U/L (17-59); BILIRUBIN,TOTAL 0.9 mg/dL (0.2-1.3); BLOOD UREA NITROGEN 6 mg/dL (7-21); CALCIUM 8.3 mg/dL (8.4-10.5); CARBON DIOXIDE 26 mmol/L (21-33); CHLORIDE 95 mmol/L (98-107); GFR AFRICAN-AMERICAN > 60; GLUCOSE,RANDOM 104 mg/dL (70-110); SODIUM 127 mmol/L (132-148); TOTAL PROTEIN 6.7 g/dL (5.8-8.3)
[2017-01-28 10:31] LABS: BASO # 0.08 K/mm3 (0.0-2.0); BASO % 0.7 % (0.0-3.0); EOS # 0.1 (0.0-0.7); EOS % 1.2 % (1.5-5.0); GRAN % 76.5 % (50.0-68.0); HEMATOCRIT 29.4 % (42.0-52.0); LYMPH # 1.1 (1.2-3.4); LYMPH % 9.2 % (22.0-35.0); MEAN CORPUSCULAR HEMOGLOBIN 29.4 pg (25.0-35.0); MEAN CORPUSCULAR HGB CONC 32.3 g/dl (31.0-37.0); MEAN PLATELET VOLUME 9.4 fl (7.0-11.0); MONO # 1.5 (0.1-0.6); MONO % 12.4 % (1.0-6.0); RED CELL DISTRIBUTION WIDTH 14.1 % (11.5-14.5); WHITE BLOOD COUNT 11.8 10^3/ul (4.5-11.0)
--- NOTE | 2017-01-28 13:32 | CP.PCM.PN ---
Subjective - Date & Time of Evaluation Date of Evaluation: 01/28/17 Time of Evaluation: 10:20 - Subjective Subjective: Patient was seen and examined with medical office secretary. Patient is c/o generalized weakness, he is afebrile, denies chest pain, palpitation or dyspnea Objective - Vital Signs/Intake and Output Vital Signs (last 24 hours): Temp Pulse Resp BP Pulse Ox 98.9 F 87 22 152/89 H 97 01/28/17 08:23 01/28/17 08:23 01/28/17 08:23 01/28/17 08:23 01/28/17 08:23 Intake and Output: 01/28/17 01/28/17 06:59 18:59 Intake Total 600 Output Total 200 Balance 400 - Medications Medications: Current Medications Acetaminophen (Tylenol 325 Mg Supp) 325 mg RC Q6H PRN PRN Reason: Fever >100.4 F Last Admin: 01/23/17 06:00 Dose: 325 mg Acetaminophen (Tylenol 325mg Tab) 650 mg PO Q4H PRN PRN Reason: Fever >100.4 F Last Admin: 01/26/17 15:10 Dose: 650 mg Chlordiazepoxide (Librium) 5 mg PO Q8 [facility] PRN Reason: Protocol Last Admin: 01/28/17 13:14 Dose: 5 mg Folic Acid (Folic Acid) 1 mg PO DAILY [facility] Last Admin: 01/28/17 09:48 Dose: 1 mg Gabapentin (Neurontin) 300 mg PO TID [facility] PRN Reason: Protocol Last Admin: 01/28/17 13:15 Dose: 300 mg Sodium Chloride (Sodium Chloride 0.9%) 1,000 mls @ 200 mls/hr IV .Q5H [facility] Last Admin: 01/28/17 09:48 Dose: 200 mls/hr Levetiracetam (Keppra) 500 mg PO BID [facility] Last Admin: 01/28/17 09:48 Dose: 500 mg Lorazepam (Ativan) 1 mg IM Q6H PRN; Protocol PRN Reason: Symptoms of alcohol withdrawl Last Admin: 01/27/17 11:05 Dose: 1 mg Multivitamins/Minerals (Therapeutic-M Tab) 1 tab PO 0800 [facility] Last Admin: 01/28/17 09:48 Dose: 1 tab Pantoprazole Sodium (Protonix Susp) 40 mg PO 0600,1600 [facility] Last Admin: 01/28/17 05:43 Dose: 40 mg Sodium Chloride (Sodium Chloride Tab) 2 gm PO Q8H [facility] Last Admin: 01/28/17 10:27 Dose: 2 gm Thiamine HCl (Vitamin B1 Tab) 100 mg PO DAILY [facility] Last Admin: 01/28/17 09:48 Dose: 100 mg - Labs Labs: 01/28/17 09:30 01/28/17 09:30 PT 10.5 Seconds (9.9-11.8) 01/18/17 21:26 INR 0.97 (0.93-1.08) 01/18/17 21:26 APTT 29.5 Seconds (23.7-30.8) 01/18/17 21:26 - Constitutional Appears: Non-toxic, No Acute Distress - Head Exam Head Exam: NORMAL INSPECTION, NORMOCEPHALIC - ENT Exam ENT Exam: Mucous Membranes Moist - Neck Exam Neck Exam: Full ROM - Respiratory Exam Respiratory Exam: Clear to Ausculation Bilateral, NORMAL BREATHING PATTERN - Cardiovascular Exam Cardiovascular Exam: REGULAR RHYTHM Additional comments: no rub or gallop - GI/Abdominal Exam GI & Abdominal Exam: Soft, Normal Bowel Sounds - Extremities Exam Additional comments: no edema, no clubbing - Neurological Exam Neurological Exam: Alert, Awake, CN II-XII Intact Additional comments: no focal deficit, able to move both upper and lower extremities. Assessment and Plan - Assessment and Plan (Free Text) Plan: 66 year old male with past medical history of chronic ETOH abuse who presented with H/O fall secondary to alcohol intoxication. He was found to have subdural hemorrhage and was admitted to the ICU. He was seen by neurology and neurosurgery and was managed conservatively. Repeat CT head showed stable findings. Patient is also hyponatremic. 1. Subdural hemorrhage s/p fall - Serial CT heads have been stable. Neurology and neurosurgery evaluation were appreciated. Recommended to repeat CT head in 2 weeks. Patient does not has any focal deficit, he is not ambulatory, he was encouraged to participate in physical therapy. 2. 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 2. Alcohol withdrawal - He was counselled on alcohol abstinence. He is on multivitamin, folic acid and thiamine.No sign of alcohol withdrawal at this time. 4. Leukocytosis.- Patient has now been afebrile x 48 hrs. Workup was negative. He is off antibiotics, we will monitor. 5. Deconditiong, Prognosis is guarded. Management plan was discussed in detail with patient Education was provided.
--- NOTE | 2017-01-28 15:36 | PN ---
DATE: 01/28/2017 SUBJECTIVE: The patient is seen earlier this morning. No fevers. No chills. PHYSICAL EXAMINATION: VITAL SIGNS: Temperature is 98, blood pressure is 150/80, respiratory rate of 18. HEENT: Unremarkable. NECK: Supple. LUNGS: Decreased breath sounds. HEART: Normal S1 and S2. ABDOMEN: Soft. LABORATORY DATA: Reveals a white count of 11,800, hemoglobin 9. BUN of 6, creatinine of 0.5. Microbiology reveals a cultures are negative. Review of orders, reveals the patient to be on no antibiotics. ASSESSMENT AND PLAN: A 66-year-old male with systemic inflammatory response syndrome probably alcohol withdrawal and currently off of antibiotics, he has mild leukocytosis. We will repeat the white count clinically, stable follow with you. Roque Chowdary MD
--- NOTE | 2017-01-28 22:15 | CP.PCM.PN ---
Subjective - Date & Time of Evaluation Date of Evaluation: 01/28/17 Time of Evaluation: 22:00 - Subjective Subjective: Per nursing staff, patient less active than previous admissions, not making an effort to get out of bed or even reach for urinal; Objective - Vital Signs/Intake and Output Vital Signs (last 24 hours): Temp Pulse Resp BP Pulse Ox 97.9 F 75 18 150/72 95 01/28/17 16:00 01/28/17 16:00 01/28/17 16:00 01/28/17 16:00 01/28/17 16:00 Intake and Output: 01/28/17 01/29/17 18:59 06:59 Intake Total 420 Output Total 700 Balance -280 - Medications Medications: Current Medications Acetaminophen (Tylenol 325 Mg Supp) 325 mg RC Q6H PRN PRN Reason: Fever >100.4 F Last Admin: 01/23/17 06:00 Dose: 325 mg Acetaminophen (Tylenol 325mg Tab) 650 mg PO Q4H PRN PRN Reason: Fever >100.4 F Last Admin: 01/26/17 15:10 Dose: 650 mg Chlordiazepoxide (Librium) 5 mg PO Q8 [facility] PRN Reason: Protocol Last Admin: 01/28/17 21:31 Dose: 5 mg Folic Acid (Folic Acid) 1 mg PO DAILY [facility] Last Admin: 01/28/17 09:48 Dose: 1 mg Gabapentin (Neurontin) 300 mg PO TID [facility] PRN Reason: Protocol Last Admin: 01/28/17 17:24 Dose: 300 mg Sodium Chloride (Sodium Chloride 0.9%) 1,000 mls @ 200 mls/hr IV .Q5H [facility] Last Admin: 01/28/17 20:07 Dose: Not Given Levetiracetam (Keppra) 500 mg PO BID [facility] Last Admin: 01/28/17 17:24 Dose: 500 mg Lorazepam (Ativan) 1 mg IM Q6H PRN; Protocol PRN Reason: Symptoms of alcohol withdrawl Last Admin: 01/27/17 11:05 Dose: 1 mg Multivitamins/Minerals (Therapeutic-M Tab) 1 tab PO 0800 [facility] Last Admin: 01/28/17 09:48 Dose: 1 tab Pantoprazole Sodium (Protonix Susp) 40 mg PO 0600,1600 [facility] Last Admin: 01/28/17 17:25 Dose: 40 mg Sodium Chloride (Sodium Chloride Tab) 2 gm PO Q8H [facility] Last Admin: 01/28/17 18:20 Dose: 2 gm Thiamine HCl (Vitamin B1 Tab) 100 mg PO DAILY [facility] Last Admin: 01/28/17 09:48 Dose: 100 mg - Labs Labs: 01/28/17 09:30 01/28/17 09:30 PT 10.5 Seconds (9.9-11.8) 01/18/17 21:26 INR 0.97 (0.93-1.08) 01/18/17 21:26 APTT 29.5 Seconds (23.7-30.8) 01/18/17 21:26 - Constitutional Appears: Non-toxic, No Acute Distress - Eye Exam Eye Exam: Normal appearance. absent: Scleral icterus - ENT Exam ENT Exam: Mucous Membranes Moist - Respiratory Exam Respiratory Exam: Clear to Ausculation Bilateral. absent: Respiratory Distress - Cardiovascular Exam Cardiovascular Exam: +S1, +S2 Additional comments: irregular rate; - GI/Abdominal Exam GI & Abdominal Exam: Soft. absent: Distended, Tenderness - Extremities Exam Additional comments: no leg edema; - Neurological Exam Neurological Exam: Alert, Awake - Skin Skin Exam: Normal Color, Warm. absent: Cyanosis Assessment and Plan (1) Hyponatremia Assessment & Plan: Due to SIADH v cerebral salt wasting; sodium not dropping with NS more indicative of the latter; generally a self limited process but in the interim will need to keep on NS as salt tabs doesn't yet seem sufficient; -continue NS at 200 cc/hr, will seek to decrease tomorrow; Status: Acute (2) Subdural hematoma Assessment & Plan: Causing hyponatremia, see above; Status: Acute (3) Alcohol withdrawal Status: Resolved (4) Hypokalemia Status: Resolved
[2017-01-29] MEDS: Sodium Chloride 0.9% 1,000 ML IV SCH ×3 (01:46→09:30)
[2017-01-29] MEDS: Pantoprazole 40 mg Susp UD PO SCH ×2 (05:43→17:03)
[2017-01-29 09:15] LABS: BASO # 0.03 K/mm3 (0.0-2.0); BASO % 0.3 % (0.0-3.0); EOS # 0.1 (0.0-0.7); EOS % 1.2 % (1.5-5.0); GRAN # 7.19 (1.4-6.5); GRAN % 70.5 % (50.0-68.0); LYMPH # 1.3 (1.2-3.4); LYMPH % 12.7 % (22.0-35.0); MEAN CELL VOLUME 88.7 fl (80.0-105.0); MEAN CORPUSCULAR HEMOGLOBIN 29.1 pg (25.0-35.0); MEAN CORPUSCULAR HGB CONC 32.8 g/dl (31.0-37.0); MEAN PLATELET VOLUME 8.8 fl (7.0-11.0); MONO # 1.6 (0.1-0.6); MONO % 15.3 % (1.0-6.0); RED CELL DISTRIBUTION WIDTH 14.1 % (11.5-14.5); WHITE BLOOD COUNT 10.2 10^3/ul (4.5-11.0)
[2017-01-29 09:21] LABS: ALB/GLOB RATIO 1.1 (1.1-1.8); ALKALINE PHOSPHATASE 81 U/L (38-126); ALT/SGPT 43 U/L (7-56); AST/SGOT 52 U/L (17-59); BILIRUBIN,TOTAL 0.8 mg/dL (0.2-1.3); BLOOD UREA NITROGEN 5 mg/dL (7-21); CALCIUM 8.7 mg/dL (8.4-10.5); CARBON DIOXIDE 27 mmol/L (21-33); CHLORIDE 94 mmol/L (98-107); GFR AFRICAN-AMERICAN > 60; GLUCOSE,RANDOM 112 mg/dL (70-110); POTASSIUM 3.4 mmol/L (3.6-5.0); SODIUM 128 mmol/L (132-148); TOTAL PROTEIN 6.8 g/dL (5.8-8.3)
[2017-01-29] MEDS: Multivitamin With Minerals Tab PO SCH (09:31)
[2017-01-29] MEDS ORDERED: Potassium Chloride 20 mEq ER Tab PO ONE (09:36)
--- NOTE | 2017-01-29 18:01 | CP.PCM.PN ---
<Nazario Stoll - Last Filed: 01/29/17 18:13> Subjective - Date & Time of Evaluation Date of Evaluation: 01/29/17 Time of Evaluation: 09:00 - Subjective Subjective: Nazario Stoll DO, PGY-1, Hospitalist Service Patient seen and examined at bedside. Patient not responsive to questioning. Nurse reports that the patient doesn't speak and that his family isn't happy with him. Objective - Vital Signs/Intake and Output Vital Signs (last 24 hours): Temp Pulse Resp BP Pulse Ox 97.4 F L 75 20 155/83 H 96 01/29/17 07:30 01/29/17 07:30 01/29/17 07:30 01/29/17 07:30 01/29/17 07:30 - Medications Medications: Current Medications Acetaminophen (Tylenol 325 Mg Supp) 325 mg RC Q6H PRN PRN Reason: Fever >100.4 F Last Admin: 01/23/17 06:00 Dose: 325 mg Acetaminophen (Tylenol 325mg Tab) 650 mg PO Q4H PRN PRN Reason: Fever >100.4 F Last Admin: 01/29/17 10:16 Dose: 650 mg Chlordiazepoxide (Librium) 5 mg PO Q8 [facility] PRN Reason: Protocol Last Admin: 01/29/17 14:27 Dose: 5 mg Folic Acid (Folic Acid) 1 mg PO DAILY [facility] Last Admin: 01/29/17 09:32 Dose: 1 mg Gabapentin (Neurontin) 300 mg PO TID [facility] PRN Reason: Protocol Last Admin: 01/29/17 17:34 Dose: 300 mg Sodium Chloride (Sodium Chloride 0.9%) 1,000 mls @ 100 mls/hr IV .Q10H [facility] Last Admin: 01/29/17 09:30 Dose: 100 mls/hr Levetiracetam (Keppra) 500 mg PO BID [facility] Last Admin: 01/29/17 17:34 Dose: 500 mg Lorazepam (Ativan) 1 mg IM Q6H PRN; Protocol PRN Reason: Symptoms of alcohol withdrawl Last Admin: 01/29/17 10:02 Dose: 1 mg Multivitamins/Minerals (Therapeutic-M Tab) 1 tab PO 0800 [facility] Last Admin: 01/29/17 09:31 Dose: 1 tab Pantoprazole Sodium (Protonix Susp) 40 mg PO 0600,1600 [facility] Last Admin: 01/29/17 17:03 Dose: Not Given Sodium Chloride (Sodium Chloride Tab) 2 gm PO Q8H [facility] Last Admin: 01/29/17 12:25 Dose: 2 gm Thiamine HCl (Vitamin B1 Tab) 100 mg PO DAILY [facility] Last Admin: 01/29/17 09:31 Dose: 100 mg - Labs Labs: 01/29/17 09:07 01/29/17 09:07 PT 10.5 Seconds (9.9-11.8) 01/18/17 21:26 INR 0.97 (0.93-1.08) 01/18/17 21:26 APTT 29.5 Seconds (23.7-30.8) 01/18/17 21:26 - Constitutional Appears: Non-toxic, Chronically Ill - Head Exam Head Exam: ATRAUMATIC, NORMOCEPHALIC - Eye Exam Eye Exam: EOMI, Normal appearance, PERRL - ENT Exam ENT Exam: Mucous Membranes Moist, Normal Oropharynx - Neck Exam Neck Exam: Full ROM, Normal Inspection - Respiratory Exam Respiratory Exam: Clear to Ausculation Bilateral, NORMAL BREATHING PATTERN - Cardiovascular Exam Cardiovascular Exam: RRR, +S1, +S2 - GI/Abdominal Exam GI & Abdominal Exam: Soft, Normal Bowel Sounds. absent: Guarding, Rebound - Extremities Exam Extremities Exam: Normal Capillary Refill, Normal Inspection. absent: Calf Tenderness - Back Exam Back Exam: NORMAL INSPECTION. absent: CVA tenderness (L), CVA tenderness (R) - Neurological Exam Neurological Exam: absent: Oriented x3 Assessment and Plan - Assessment and Plan (Free Text) Assessment: 66 year old male with past medical history of chronic ETOH abuse who presented with H/O fall secondary to alcohol intoxication. He was found to have subdural hemorrhage and was admitted to the ICU. He was seen by neurology and neurosurgery and was managed conservatively. Repeat CT head showed stable findings. Patient is also hyponatremic. Plan: 1. Subdural hemorrhage s/p fall - Serial CT heads have been stable. Neurology and neurosurgery evaluation were appreciated. Recommended to repeat CT head in 2 weeks. Patient does not has any focal deficit, he is not ambulatory, he was encouraged to participate in physical therapy. 2. 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 2. Alcohol withdrawal - He was counselled on alcohol abstinence. He is on multivitamin, folic acid and thiamine.No sign of alcohol withdrawal at this time. 4. Leukocytosis.- Patient has now been afebrile x 48 hrs. Workup was negative. He is off antibiotics, we will monitor. 5. Deconditiong, Prognosis is guarded. Management plan was discussed in detail with patient Education was provided <Emma Lyles - Last Filed: 02/02/17 14:40> Objective - Vital Signs/Intake and Output Vital Signs (last 24 hours): Temp Pulse Resp BP Pulse Ox 98.7 F 87 20 120/79 98 02/02/17 07:30 02/02/17 07:30 02/02/17 07:30 02/02/17 07:30 02/02/17 07:30 Intake and Output: 02/02/17 02/02/17 06:59 18:59 Intake Total 1240 Balance 1240 - Medications Medications: Current Medications Acetaminophen (Tylenol 325 Mg Supp) 325 mg RC Q6H PRN PRN Reason: Fever >100.4 F Last Admin: 01/23/17 06:00 Dose: 325 mg Acetaminophen (Tylenol 325mg Tab) 650 mg PO Q4H PRN PRN Reason: Fever >100.4 F Last Admin: 01/30/17 16:33 Dose: 650 mg Folic Acid (Folic Acid) 1 mg PO DAILY [facility] Last Admin: 02/02/17 10:30 Dose: 1 mg Gabapentin (Neurontin) 300 mg PO TID [facility] PRN Reason: Protocol Last Admin: 02/01/17 19:13 Dose: 300 mg Levetiracetam (Keppra) 500 mg PO BID [facility] Last Admin: 02/02/17 10:30 Dose: 500 mg Lorazepam (Ativan) 1 mg IM Q6H PRN; Protocol PRN Reason: Symptoms of alcohol withdrawl Last Admin: 01/29/17 10:02 Dose: 1 mg Multivitamins/Minerals (Therapeutic-M Tab) 1 tab PO 0800 [facility] Last Admin: 02/02/17 10:29 Dose: 1 tab Pantoprazole Sodium (Protonix Susp) 40 mg PO 0600,1600 [facility] Last Admin: 02/01/17 19:13 Dose: 40 mg Sodium Chloride (Sodium Chloride Tab) 2 gm PO Q6H [facility] Last Admin: 02/02/17 03:22 Dose: 2 gm Thiamine HCl (Vitamin B1 Tab) 100 mg PO DAILY [facility] Last Admin: 02/02/17 10:30 Dose: 100 mg Zinc Sulfate (Zinc Sulfate 220 Mg Cap) 220 mg PO DAILY [facility] Last Admin: 02/02/17 10:29 Dose: 220 mg - Labs Labs: 02/02/17 10:00 02/02/17 10:00 PT 10.5 Seconds (9.9-11.8) 01/18/17 21:26 INR 0.97 (0.93-1.08) 01/18/17 21:26 APTT 29.5 Seconds (23.7-30.8) 01/18/17 21:26 Attending/Attestation - Attestation I have personally seen and examined this patient.: Yes I have fully participated in the care of the patient.: Yes I have reviewed all pertinent clinical information, including history, physical exam and plan: Yes Notes (Text): I have seen and examined the patient with the resident. Agree with the above note with the following additions/ exceptions: Briefly this is 66 year old male with history of chronic alcohol abuse who presented s/p fall due to alcohol intoxication and developed SDH. Decision was made to manage him conservatively. NS and neuro recommended to repeat CT scan in 2 weeks. He does not have any focal deficits. He also has hyponatremia due to SIADH vs [employer]. Continue NS and sodium tabs. Upon discharge patient will follow up with [facility] clinic. Dr Emma Lyles
--- NOTE | 2017-01-29 19:29 | CP.PCM.PN ---
Subjective - Date & Time of Evaluation Date of Evaluation: 01/29/17 Time of Evaluation: 18:55 - Subjective Subjective: Comfortable, afebrile, not in distress. Objective - Vital Signs/Intake and Output Vital Signs (last 24 hours): Temp Pulse Resp BP Pulse Ox 97.4 F L 75 20 155/83 H 96 01/29/17 07:30 01/29/17 07:30 01/29/17 07:30 01/29/17 07:30 01/29/17 07:30 - Medications Medications: Current Medications Acetaminophen (Tylenol 325 Mg Supp) 325 mg RC Q6H PRN PRN Reason: Fever >100.4 F Last Admin: 01/23/17 06:00 Dose: 325 mg Acetaminophen (Tylenol 325mg Tab) 650 mg PO Q4H PRN PRN Reason: Fever >100.4 F Last Admin: 01/29/17 10:16 Dose: 650 mg Chlordiazepoxide (Librium) 5 mg PO Q8 [facility] PRN Reason: Protocol Last Admin: 01/29/17 05:43 Dose: 5 mg Folic Acid (Folic Acid) 1 mg PO DAILY [facility] Last Admin: 01/29/17 09:32 Dose: 1 mg Gabapentin (Neurontin) 300 mg PO TID [facility] PRN Reason: Protocol Last Admin: 01/29/17 09:31 Dose: 300 mg Sodium Chloride (Sodium Chloride 0.9%) 1,000 mls @ 100 mls/hr IV .Q10H [facility] Last Admin: 01/29/17 09:30 Dose: 100 mls/hr Levetiracetam (Keppra) 500 mg PO BID [facility] Last Admin: 01/29/17 09:31 Dose: 500 mg Lorazepam (Ativan) 1 mg IM Q6H PRN; Protocol PRN Reason: Symptoms of alcohol withdrawl Last Admin: 01/29/17 10:02 Dose: 1 mg Multivitamins/Minerals (Therapeutic-M Tab) 1 tab PO 0800 [facility] Last Admin: 01/29/17 09:31 Dose: 1 tab Pantoprazole Sodium (Protonix Susp) 40 mg PO 0600,1600 [facility] Last Admin: 01/29/17 05:43 Dose: 40 mg Sodium Chloride (Sodium Chloride Tab) 2 gm PO Q8H [facility] Last Admin: 01/29/17 12:25 Dose: 2 gm Thiamine HCl (Vitamin B1 Tab) 100 mg PO DAILY [facility] Last Admin: 01/29/17 09:31 Dose: 100 mg - Labs Labs: 01/29/17 09:07 01/29/17 09:07 PT 10.5 Seconds (9.9-11.8) 01/18/17 21:26 INR 0.97 (0.93-1.08) 01/18/17 21:26 APTT 29.5 Seconds (23.7-30.8) 01/18/17 21:26 - Constitutional Appears: Non-toxic, No Acute Distress - Head Exam Head Exam: NORMAL INSPECTION - ENT Exam ENT Exam: Mucous Membranes Moist - Neck Exam Neck Exam: absent: Lymphadenopathy, Meningismus - Respiratory Exam Respiratory Exam: Decreased Breath Sounds - Cardiovascular Exam Cardiovascular Exam: +S1, +S2 - GI/Abdominal Exam GI & Abdominal Exam: Soft. absent: Tenderness Assessment and Plan - Assessment and Plan (Free Text) Plan: Assessment systemic inflammatory response syndrome, probably due to alcohol withdrawal syndrome, R/O due to subdural hematoma, no source of sepsis identified chronic alcoholism GERD gastritis S/P cholecystectomy S/P appendectomy Plan will continue to monitor off antibiotics since he is at risk for healthcare- associated infections
--- NOTE | 2017-01-29 20:44 | CP.PCM.PN ---
Subjective - Date & Time of Evaluation Date of Evaluation: 01/29/17 Time of Evaluation: 11:00 - Subjective Subjective: Still not getting out of bed per nursing staff; eating well; Objective - Vital Signs/Intake and Output Vital Signs (last 24 hours): Temp Pulse Resp BP Pulse Ox 97.5 F L 90 20 145/92 H 98 01/29/17 16:00 01/29/17 16:00 01/29/17 16:00 01/29/17 16:00 01/29/17 16:00 - Medications Medications: Current Medications Acetaminophen (Tylenol 325 Mg Supp) 325 mg RC Q6H PRN PRN Reason: Fever >100.4 F Last Admin: 01/23/17 06:00 Dose: 325 mg Acetaminophen (Tylenol 325mg Tab) 650 mg PO Q4H PRN PRN Reason: Fever >100.4 F Last Admin: 01/29/17 10:16 Dose: 650 mg Chlordiazepoxide (Librium) 5 mg PO Q8 [facility] PRN Reason: Protocol Last Admin: 01/29/17 14:27 Dose: 5 mg Folic Acid (Folic Acid) 1 mg PO DAILY [facility] Last Admin: 01/29/17 09:32 Dose: 1 mg Gabapentin (Neurontin) 300 mg PO TID [facility] PRN Reason: Protocol Last Admin: 01/29/17 17:34 Dose: 300 mg Sodium Chloride (Sodium Chloride 0.9%) 1,000 mls @ 100 mls/hr IV .Q10H [facility] Last Admin: 01/29/17 09:30 Dose: 100 mls/hr Levetiracetam (Keppra) 500 mg PO BID [facility] Last Admin: 01/29/17 17:34 Dose: 500 mg Lorazepam (Ativan) 1 mg IM Q6H PRN; Protocol PRN Reason: Symptoms of alcohol withdrawl Last Admin: 01/29/17 10:02 Dose: 1 mg Multivitamins/Minerals (Therapeutic-M Tab) 1 tab PO 0800 [facility] Last Admin: 01/29/17 09:31 Dose: 1 tab Pantoprazole Sodium (Protonix Susp) 40 mg PO 0600,1600 [facility] Last Admin: 01/29/17 17:03 Dose: Not Given Sodium Chloride (Sodium Chloride Tab) 2 gm PO Q8H [facility] Last Admin: 01/29/17 18:39 Dose: 2 gm Thiamine HCl (Vitamin B1 Tab) 100 mg PO DAILY [facility] Last Admin: 01/29/17 09:31 Dose: 100 mg - Labs Labs: 01/29/17 09:07 01/29/17 09:07 PT 10.5 Seconds (9.9-11.8) 01/18/17 21:26 INR 0.97 (0.93-1.08) 01/18/17 21:26 APTT 29.5 Seconds (23.7-30.8) 01/18/17 21:26 - Constitutional Appears: Non-toxic, No Acute Distress - Head Exam Head Exam: NORMAL INSPECTION - Eye Exam Eye Exam: Normal appearance - ENT Exam ENT Exam: Mucous Membranes Moist - Respiratory Exam Respiratory Exam: Clear to Ausculation Bilateral. absent: Respiratory Distress - Cardiovascular Exam Cardiovascular Exam: +S1, +S2 - GI/Abdominal Exam GI & Abdominal Exam: Soft. absent: Distended - Exam Exam: absent: Bladder Distension - Extremities Exam Additional comments: no leg edema; - Neurological Exam Neurological Exam: Alert, Awake - Skin Skin Exam: Warm. 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
[2017-01-30] MEDS: Sodium Chloride 0.9% 1,000 ML IV SCH (04:02)
[2017-01-30] MEDS: Pantoprazole 40 mg Susp UD PO SCH ×2 (06:00→16:33)
[2017-01-30 07:33] LABS: BLOOD UREA NITROGEN 7 mg/dL (7-21); CALCIUM 8.9 mg/dL (8.4-10.5); CARBON DIOXIDE 25 mmol/L (21-33); CHLORIDE 94 mmol/L (98-107); GFR AFRICAN-AMERICAN > 60; GLUCOSE,RANDOM 113 mg/dL (70-110); MAGNESIUM 1.7 mg/dL (1.7-2.2); POTASSIUM 3.9 mmol/L (3.6-5.0); SODIUM 127 mmol/L (132-148)
[2017-01-30] MEDS: Multivitamin With Minerals Tab PO SCH (10:55)
--- NOTE | 2017-01-30 13:23 | CP.PCM.PN ---
<Nazario Stoll - Last Filed: 01/30/17 14:10> Subjective - Date & Time of Evaluation Date of Evaluation: 01/30/17 Time of Evaluation: 13:19 - Subjective Subjective: Nazario Stoll DO, PGY-1, Hospitalist Service Patient seen and examined at bedside. Patient refuses to get out of bed and refuses PT evaluation. Apparently, this gentleman does not want to go home. Objective - Vital Signs/Intake and Output Vital Signs (last 24 hours): Temp Pulse Resp BP Pulse Ox 98.8 F 83 24 147/85 99 01/30/17 08:29 01/30/17 08:29 01/30/17 08:29 01/30/17 08:29 01/30/17 08:29 Intake and Output: 01/30/17 01/30/17 06:59 18:59 Intake Total 900 Balance 900 - Medications Medications: Current Medications Acetaminophen (Tylenol 325 Mg Supp) 325 mg RC Q6H PRN PRN Reason: Fever >100.4 F Last Admin: 01/23/17 06:00 Dose: 325 mg Acetaminophen (Tylenol 325mg Tab) 650 mg PO Q4H PRN PRN Reason: Fever >100.4 F Last Admin: 01/29/17 10:16 Dose: 650 mg Chlordiazepoxide (Librium) 5 mg PO Q8 [facility] PRN Reason: Protocol Last Admin: 01/30/17 05:55 Dose: 5 mg Folic Acid (Folic Acid) 1 mg PO DAILY [facility] Last Admin: 01/30/17 10:55 Dose: 1 mg Gabapentin (Neurontin) 300 mg PO TID [facility] PRN Reason: Protocol Last Admin: 01/30/17 10:55 Dose: 300 mg Sodium Chloride (Sodium Chloride 0.9%) 1,000 mls @ 100 mls/hr IV .Q10H [facility] Last Admin: 01/30/17 04:02 Dose: 100 mls/hr Levetiracetam (Keppra) 500 mg PO BID [facility] Last Admin: 01/30/17 10:56 Dose: 500 mg Lorazepam (Ativan) 1 mg IM Q6H PRN; Protocol PRN Reason: Symptoms of alcohol withdrawl Last Admin: 01/29/17 10:02 Dose: 1 mg Multivitamins/Minerals (Therapeutic-M Tab) 1 tab PO 0800 [facility] Last Admin: 01/30/17 10:55 Dose: 1 tab Pantoprazole Sodium (Protonix Susp) 40 mg PO 0600,1600 [facility] Last Admin: 01/30/17 06:00 Dose: 40 mg Sodium Chloride (Sodium Chloride Tab) 2 gm PO Q8H [facility] Last Admin: 01/30/17 10:59 Dose: 2 gm Thiamine HCl (Vitamin B1 Tab) 100 mg PO DAILY [facility] Last Admin: 01/30/17 10:55 Dose: 100 mg - Labs Labs: 01/29/17 09:07 01/30/17 06:45 PT 10.5 Seconds (9.9-11.8) 01/18/17 21:26 INR 0.97 (0.93-1.08) 01/18/17 21:26 APTT 29.5 Seconds (23.7-30.8) 01/18/17 21:26 - Constitutional Appears: Well, Non-toxic - Head Exam Head Exam: ATRAUMATIC, NORMOCEPHALIC - Eye Exam Eye Exam: EOMI, Normal appearance, PERRL - ENT Exam ENT Exam: Mucous Membranes Moist, Normal Oropharynx Additional comments: Nose is deviated to the left - Neck Exam Neck Exam: Normal Inspection. absent: Lymphadenopathy, Thyromegaly - Respiratory Exam Respiratory Exam: Clear to Ausculation Bilateral. absent: NORMAL BREATHING PATTERN - Cardiovascular Exam Cardiovascular Exam: RRR, +S1, +S2 - GI/Abdominal Exam GI & Abdominal Exam: Soft, Normal Bowel Sounds. absent: Rebound - Back Exam Back Exam: NORMAL INSPECTION. absent: CVA tenderness (L), CVA tenderness (R) - Neurological Exam Neurological Exam: Alert, Awake, CN II-XII Intact, Reflexes Normal Neuro motor strength exam: Left Upper Extremity: 4, Right Upper Extremity: 4, Left Lower Extremity: 4, Right Lower Extremity: 4 - Psychiatric Exam Psychiatric exam: Normal Affect, Normal Mood - Skin Skin Exam: Dry, Intact, Normal Color, Warm Additional comments: patient has pressure ulcer in sacrum and one on left elbow Assessment and Plan - Assessment and Plan (Free Text) Assessment: 66 year old male with past medical history of chronic ETOH abuse who presented with H/O fall secondary to alcohol intoxication. He has to have bilateral subdural hematomas and was admitted to the ICU. He was seen by neurology and neurosurgery and was managed conservatively. Plan: 1) Subdural hematomas - Last CT of head (01/22/17) showed 7 mm midline shift to the right. - Patient does not has any focal deficit, responds to questions appropriately, has appropriate affect. - Repeat CT of the head to be performed on 02/05/17 per Neurosurgery. 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 Holder is on board, will follow with his recommendations - 1 L NS administered daily and 2 gms of NaCl given three times a day 3) Alcohol withdrawal in a patient with a history of seizures. - Patient is showing absolutely no signs of alcohol withdrawal; no tachycardia, hallucinations, or tremor of x Hz. - Discontinued Librium 5 mg q8h - Keeping Ativan 1 mg q6h PRN for seizure-like activity - Multivitamin, Folic acid 1mg, B1 100 mg - Keppra 500 mg BID - Continue with Neurontin 300 mg TID 4) Deconditioning - Patient is OOB to chair - I personally spoke to the patient of the benefit of rehab and going back to living a normal life. He nodded in approval of allowing PT to valuate him; however, if he does not , he can still be discharged based on my assessment of his gait and neurologic function. <Emma Lyles - Last Filed: 02/02/17 14:44> Objective - Vital Signs/Intake and Output Vital Signs (last 24 hours): Temp Pulse Resp BP Pulse Ox 98.7 F 87 20 120/79 98 02/02/17 07:30 02/02/17 07:30 02/02/17 07:30 02/02/17 07:30 02/02/17 07:30 Intake and Output: 02/02/17 02/02/17 06:59 18:59 Intake Total 1240 Balance 1240 - Medications Medications: Current Medications Acetaminophen (Tylenol 325 Mg Supp) 325 mg RC Q6H PRN PRN Reason: Fever >100.4 F Last Admin: 01/23/17 06:00 Dose: 325 mg Acetaminophen (Tylenol 325mg Tab) 650 mg PO Q4H PRN PRN Reason: Fever >100.4 F Last Admin: 01/30/17 16:33 Dose: 650 mg Folic Acid (Folic Acid) 1 mg PO DAILY [facility] Last Admin: 02/02/17 10:30 Dose: 1 mg Gabapentin (Neurontin) 300 mg PO TID [facility] PRN Reason: Protocol Last Admin: 02/01/17 19:13 Dose: 300 mg Levetiracetam (Keppra) 500 mg PO BID [facility] Last Admin: 02/02/17 10:30 Dose: 500 mg Lorazepam (Ativan) 1 mg IM Q6H PRN; Protocol PRN Reason: Symptoms of alcohol withdrawl Last Admin: 01/29/17 10:02 Dose: 1 mg Multivitamins/Minerals (Therapeutic-M Tab) 1 tab PO 0800 [facility] Last Admin: 02/02/17 10:29 Dose: 1 tab Pantoprazole Sodium (Protonix Susp) 40 mg PO 0600,1600 [facility] Last Admin: 02/01/17 19:13 Dose: 40 mg Sodium Chloride (Sodium Chloride Tab) 2 gm PO Q6H [facility] Last Admin: 02/02/17 03:22 Dose: 2 gm Thiamine HCl (Vitamin B1 Tab) 100 mg PO DAILY [facility] Last Admin: 02/02/17 10:30 Dose: 100 mg Zinc Sulfate (Zinc Sulfate 220 Mg Cap) 220 mg PO DAILY [facility] Last Admin: 02/02/17 10:29 Dose: 220 mg - Labs Labs: 02/02/17 10:00 02/02/17 10:00 PT 10.5 Seconds (9.9-11.8) 01/18/17 21:26 INR 0.97 (0.93-1.08) 01/18/17 21:26 APTT 29.5 Seconds (23.7-30.8) 01/18/17 21:26 Attending/Attestation - Attestation I have personally seen and examined this patient.: Yes I have fully participated in the care of the patient.: Yes I have reviewed all pertinent clinical information, including history, physical exam and plan: Yes Notes (Text): I have seen and examined the patient with the resident. Agree with the above note with the following additions/ exceptions: Briefly this is 66 year old male with history of chronic alcohol abuse who presented s/p fall due to alcohol intoxication and developed SDH. Decision was made to manage him conservatively. NS and neuro recommended to repeat CT scan in 1 week. He does not have any focal deficits. 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 DC IVF. Continue sodium tabs. Patient is not going thru any symptoms of alcohol withdrawal. DC librium and continue ativan prn. PT cleared the patient to go home. Upon discharge patient will follow up with [facility]. Dr Emma Lyles
--- NOTE | 2017-01-30 16:35 | PN ---
DATE: 01/30/2017 SUBJECTIVE: The patient is in bed in no acute distress, nontoxic. PHYSICAL EXAMINATION: VITAL SIGNS: Temperature is 98, blood pressure is 140/80, respiratory rate of 24. HEENT: Unremarkable. NECK: Supple. LUNGS: Decreased breath sounds. HEART: Normal S1 and S2. ABDOMEN: Soft. LABORATORY DATA: Reveals a white count of 10,000, hemoglobin of 9, BUN of 7, creatinine of 0.5 and procalcitonin is 0.11 and urinalysis is noted. HIV is negative. ASSESSMENT AND PLAN: A 66-year-old with systemic inflammatory response syndrome due to alcohol withdrawal syndrome due to a subdural hematoma. No evidence of sepsis in a patient with chronic alcoholism, GERD, gastritis, history of cholecystectomy, appendectomy, off of antibiotics. We will follow closely with you. He is at risk for developing nosocomial infections. Roque Chowdary MD
--- NOTE | 2017-01-30 21:32 | CP.PCM.PN ---
Subjective - Date & Time of Evaluation Date of Evaluation: 01/30/17 Time of Evaluation: 18:00 - Subjective Subjective: Patient eating well; finally got out of bed to chair today; Objective - Vital Signs/Intake and Output Vital Signs (last 24 hours): Temp Pulse Resp BP Pulse Ox 98.9 F 92 H 22 145/92 H 96 01/30/17 16:00 01/30/17 16:00 01/30/17 16:00 01/30/17 16:00 01/30/17 16:00 Intake and Output: 01/30/17 01/31/17 18:59 06:59 Intake Total 540 640 Balance 540 640 - Medications Medications: Current Medications Acetaminophen (Tylenol 325 Mg Supp) 325 mg RC Q6H PRN PRN Reason: Fever >100.4 F Last Admin: 01/23/17 06:00 Dose: 325 mg Acetaminophen (Tylenol 325mg Tab) 650 mg PO Q4H PRN PRN Reason: Fever >100.4 F Last Admin: 01/30/17 16:33 Dose: 650 mg Folic Acid (Folic Acid) 1 mg PO DAILY [facility] Last Admin: 01/30/17 10:55 Dose: 1 mg Gabapentin (Neurontin) 300 mg PO TID [facility] PRN Reason: Protocol Last Admin: 01/30/17 17:14 Dose: 300 mg Levetiracetam (Keppra) 500 mg PO BID [facility] Last Admin: 01/30/17 17:14 Dose: 500 mg Lorazepam (Ativan) 1 mg IM Q6H PRN; Protocol PRN Reason: Symptoms of alcohol withdrawl Last Admin: 01/29/17 10:02 Dose: 1 mg Multivitamins/Minerals (Therapeutic-M Tab) 1 tab PO 0800 [facility] Last Admin: 01/30/17 10:55 Dose: 1 tab Pantoprazole Sodium (Protonix Susp) 40 mg PO 0600,1600 [facility] Last Admin: 01/30/17 16:33 Dose: 40 mg Sodium Chloride (Sodium Chloride Tab) 2 gm PO Q6H [facility] Last Admin: 01/30/17 13:59 Dose: Not Given Thiamine HCl (Vitamin B1 Tab) 100 mg PO DAILY [facility] Last Admin: 01/30/17 10:55 Dose: 100 mg - Labs Labs: 01/29/17 09:07 01/30/17 06:45 PT 10.5 Seconds (9.9-11.8) 01/18/17 21:26 INR 0.97 (0.93-1.08) 01/18/17 21:26 APTT 29.5 Seconds (23.7-30.8) 01/18/17 21:26 - Constitutional Appears: Non-toxic, No Acute Distress - Head Exam Head Exam: NORMAL INSPECTION - Eye Exam Eye Exam: Normal appearance - ENT Exam ENT Exam: Mucous Membranes Moist - Respiratory Exam Respiratory Exam: Clear to Ausculation Bilateral. absent: Rales, Respiratory Distress - Cardiovascular Exam Cardiovascular Exam: RRR, +S1, +S2 - GI/Abdominal Exam GI & Abdominal Exam: Distended, Soft. absent: Tenderness - Extremities Exam Extremities Exam: Normal Inspection Additional comments: no leg edema - Neurological Exam Neurological Exam: Alert, Awake - Skin Skin Exam: Normal Color, Warm. absent: Cyanosis Assessment and Plan (1) Hyponatremia Assessment & Plan: SIADH v cerebral salt wasting; serum Na relatively stable but not improving; no orthostatic changes on our assessment today; repeat Ur osm yesterday has decreased possibly indicating that any volume deficit is correcting; -IVF discontinued -Increasing salt tabs to 2g q6h Status: Acute (2) Subdural hematoma Status: Acute (3) Hypokalemia Assessment & Plan: Improved; monitor and replenish prn; Status: Acute (4) Alcohol abuse Assessment & Plan: Poses major risk for electrolyte abnormalities after d/c; Status: Chronic
[2017-01-31] MEDS: Pantoprazole 40 mg Susp UD PO SCH ×2 (06:18→18:23)
[2017-01-31 07:21] LABS: BLOOD UREA NITROGEN 11 mg/dL (7-21); CALCIUM 9.2 mg/dL (8.4-10.5); CARBON DIOXIDE 28 mmol/L (21-33); CHLORIDE 95 mmol/L (98-107); GFR AFRICAN-AMERICAN > 60; GLUCOSE,RANDOM 139 mg/dL (70-110); POTASSIUM 3.8 mmol/L (3.6-5.0); SODIUM 130 mmol/L (132-148)
[2017-01-31] MEDS: Multivitamin With Minerals Tab PO SCH (08:17)
--- NOTE | 2017-01-31 09:21 | CP.PCM.PN ---
Subjective - Date & Time of Evaluation Date of Evaluation: 01/31/17 Time of Evaluation: 09:19 - Subjective Subjective: PGY-[address] Holder's nephrology service: Pt seen and examined at bedside. Pt found in bed eating. Nursing reports he is refusing to get out of bed. Objective - Vital Signs/Intake and Output Vital Signs (last 24 hours): Temp Pulse Resp BP Pulse Ox 99 F 95 H 22 140/89 96 01/31/17 00:00 01/31/17 00:00 01/31/17 00:00 01/31/17 00:00 01/31/17 00:00 Intake and Output: 01/31/17 01/31/17 06:59 18:59 Intake Total 1000 Balance 1000 - Medications Medications: Current Medications Acetaminophen (Tylenol 325 Mg Supp) 325 mg RC Q6H PRN PRN Reason: Fever >100.4 F Last Admin: 01/23/17 06:00 Dose: 325 mg Acetaminophen (Tylenol 325mg Tab) 650 mg PO Q4H PRN PRN Reason: Fever >100.4 F Last Admin: 01/30/17 16:33 Dose: 650 mg Folic Acid (Folic Acid) 1 mg PO DAILY [facility] Last Admin: 01/30/17 10:55 Dose: 1 mg Gabapentin (Neurontin) 300 mg PO TID [facility] PRN Reason: Protocol Last Admin: 01/30/17 17:14 Dose: 300 mg Levetiracetam (Keppra) 500 mg PO BID [facility] Last Admin: 01/30/17 17:14 Dose: 500 mg Lorazepam (Ativan) 1 mg IM Q6H PRN; Protocol PRN Reason: Symptoms of alcohol withdrawl Last Admin: 01/29/17 10:02 Dose: 1 mg Multivitamins/Minerals (Therapeutic-M Tab) 1 tab PO 0800 [facility] Last Admin: 01/31/17 08:17 Dose: 1 tab Pantoprazole Sodium (Protonix Susp) 40 mg PO 0600,1600 [facility] Last Admin: 01/31/17 06:18 Dose: 40 mg Sodium Chloride (Sodium Chloride Tab) 2 gm PO Q6H [facility] Last Admin: 01/31/17 07:05 Dose: 2 gm Thiamine HCl (Vitamin B1 Tab) 100 mg PO DAILY [facility] Last Admin: 01/30/17 10:55 Dose: 100 mg - Labs Labs: 01/29/17 09:07 01/31/17 06:30 PT 10.5 Seconds (9.9-11.8) 01/18/17 21:26 INR 0.97 (0.93-1.08) 01/18/17 21:26 APTT 29.5 Seconds (23.7-30.8) 01/18/17 21:26 - Constitutional Appears: Non-toxic, No Acute Distress - Head Exam Head Exam: NORMAL INSPECTION - Eye Exam Eye Exam: Normal appearance - ENT Exam ENT Exam: Mucous Membranes Moist - Respiratory Exam Respiratory Exam: Clear to Ausculation Bilateral. absent: Rales, Rhonchi, Wheezes - Cardiovascular Exam Cardiovascular Exam: REGULAR RHYTHM, +S1, +S2 - GI/Abdominal Exam GI & Abdominal Exam: Distended, Soft, Normal Bowel Sounds. absent: Tenderness - Extremities Exam Extremities Exam: Normal Inspection. absent: Pedal Edema - Back Exam Back Exam: NORMAL INSPECTION - Neurological Exam Neurological Exam: Alert, Awake - Psychiatric Exam Psychiatric exam: Normal Affect, Normal Mood - Skin Skin Exam: Normal Color, Warm Assessment and Plan - Assessment and Plan (Free Text) Plan: (1) Hyponatremia Assessment & Plan: SIADH v cerebral salt wasting serum Na improving - repeat Ur osm has decreased possibly indicating that any volume deficit is correcting -Salt tabs 2g PO q6h Status: Acute (2) Subdural hematoma Status: Acute (3) Hypokalemia Assessment & Plan: Improved; monitor and replenish prn; Status: Acute (4) Alcohol abuse Assessment & Plan: Poses major risk for electrolyte abnormalities after d/c; Status: Chronic
--- NOTE | 2017-01-31 09:48 | PN ---
DATE: 01/31/2017 SUBJECTIVE: The patient is seen in bed, in no acute distress. PHYSICAL EXAMINATION: VITAL SIGNS: Temperature is 99, blood pressure is 140/80, respiratory rate of 22. HEENT: Unremarkable. NECK: Supple. LUNGS: Decreased breath sounds. HEART: Normal S1 and S2. ABDOMEN: Soft. LABORATORY EXAMINATION: Reveals a white count of 10,000, hemoglobin of 9, platelets of 592. Chemistries reveal the BUN of 11, creatinine of 0.6. Urinalysis is noted. HIV is negative. Blood cultures have no growth. Urine cultures not available. Review of the medications reveal the patient to be off of antibiotics. ASSESSMENT AND PLAN: This is a 66-year-old with systemic inflammatory response syndrome, alcohol withdrawal syndrome due to a subdural hematoma, no evidence of sepsis in a patient with chronic alcoholism, gastroesophageal reflux disease, gastritis, history of cholecystectomy, appendectomy; currently off of antibiotics. Roque Chowdary MD
--- NOTE | 2017-01-31 12:56 | CP.PCM.DIS ---
<Nazario Stoll - Last Filed: 02/01/17 17:26> Provider - Provider Date of Admission: 01/18/17 23:33 Attending physician: Emma Lyles MD Primary care physician: NO PRIMARY CARE PROVIDER Consults: Dr. Ricarda Gonzales Time Spent in preparation of Discharge (in minutes): 33 Hospital Course - Lab Results Lab Results: Micro Results 01/22/17 11:15 Blood-Venous Blood Culture - Final NO GROWTH AFTER 5 DAYS 01/22/17 11:15 Blood-Venous Gram Stain - Final TEST NOT PERFORMED 01/22/17 11:00 Blood-Venous Blood Culture - Final NO GROWTH AFTER 5 DAYS 01/22/17 11:00 Blood-Venous Gram Stain - Final TEST NOT PERFORMED 01/21/17 10:40 Blood Blood Culture - Final NO GROWTH AFTER 5 DAYS 01/21/17 10:40 Blood Gram Stain - Final TEST NOT PERFORMED 01/20/17 08:47 Stool C. difficile Antigen & Toxin A,B (M - Final 01/19/17 04:15 Naris MRSA Culture (Admit) - Final MRSA NOT DETECTED Most Recent Lab Values WBC 10.2 10^3/ul (4.5-11.0) 01/29/17 09:07 RBC 3.27 10^6/uL (3.5-6.1) L 01/29/17 09:07 Hgb 9.5 g/dL (14.0-18.0) L 01/29/17 09:07 Hct 29.0 % (42.0-52.0) L 01/29/17 09:07 MCV 88.7 fl (80.0-105.0) 01/29/17 09:07 MCH 29.1 pg (25.0-35.0) 01/29/17 09:07 MCHC 32.8 g/dl (31.0-37.0) 01/29/17 09:07 RDW 14.1 % (11.5-14.5) 01/29/17 09:07 Plt Count 592 10^3/uL (120.0-450.0) H 01/29/17 09:07 MPV 8.8 fl (7.0-11.0) 01/29/17 09:07 Gran % 70.5 % (50.0-68.0) H 01/29/17 09:07 Lymph % (Auto) 12.7 % (22.0-35.0) L 01/29/17 09:07 [place] % (Auto) 15.3 % (1.0-6.0) H 01/29/17 09:07 Eos % (Auto) 1.2 % (1.5-5.0) L 01/29/17 09:07 Baso % (Auto) 0.3 % (0.0-3.0) 01/29/17 09:07 Gran # 7.19 (1.4-6.5) H 01/29/17 09:07 Lymph # 1.3 (1.2-3.4) 01/29/17 09:07 [place] # 1.6 (0.1-0.6) H 01/29/17 09:07 Eos # 0.1 (0.0-0.7) 01/29/17 09:07 Baso # 0.03 K/mm3 (0.0-2.0) 01/29/17 09:07 Neutrophils % (Manual) 72 % (50.0-70.0) H 01/24/17 07:00 Band Neutrophils % 2 % (0-2) 01/24/17 07:00 Lymphocytes % (Manual) 7 % (22.0-35.0) L 01/24/17 07:00 Monocytes % (Manual) 17 % (1.0-6.0) H 01/24/17 07:00 Eosinophils % (Manual) 2 % (0.0-3.0) 01/24/17 07:00 Toxic Granulation 1+ 01/24/17 07:00 Platelet Evaluation Normal (NORMAL) 01/24/17 07:00 Large Platelets Present 01/24/17 07:00 Giant Platelets Present 01/24/17 07:00 Hypochromasia 1+ 01/24/17 07:00 Anisocytosis (manual) 1+ 01/24/17 07:00 Tear Drop Cells Slight 01/24/17 07:00 PT 10.5 Seconds (9.9-11.8) 01/18/17 21:26 INR 0.97 (0.93-1.08) 01/18/17 21:26 APTT 29.5 Seconds (23.7-30.8) 01/18/17 21:26 pO2 50 mm/Hg (30-55) 01/22/17 11:00 VBG pH 7.47 (7.32-7.43) H 01/22/17 11:00 VBG pCO2 38.0 (40-60) L 01/22/17 11:00 VBG HCO3 27.7 mmol/l (21-28) 01/22/17 11:00 VBG O2 Sat (Calc) 92.6 % (40-65) H 01/22/17 11:00 VBG Base Excess 3.9 mmol/L (0.0-2.0) H 01/22/17 11:00 Sodium 130 mmol/L (132-148) L 01/31/17 06:30 Potassium 3.8 mmol/L (3.6-5.0) 01/31/17 06:30 Chloride 95 mmol/L (98-107) L 01/31/17 06:30 Carbon Dioxide 28 mmol/L (21-33) 01/31/17 06:30 Anion Gap 11 (10-20) 01/31/17 06:30 BUN 11 mg/dL (7-21) 01/31/17 06:30 Creatinine 0.6 mg/dL (0.5-1.4) 01/31/17 06:30 Est GFR ( Amer) > 60 01/31/17 06:30 Est GFR (Non-Af Amer) > 60 01/31/17 06:30 Random Glucose 139 mg/dL (70-110) H 01/31/17 06:30 Serum Osmolality 260 mosm/kg (271-296) L 01/20/17 09:38 Uric Acid 2.3 mg/dL (3.5-8.5) L 01/20/17 12:08 Calcium 9.2 mg/dL (8.4-10.5) 01/31/17 06:30 Phosphorus 2.9 mg/dL (2.5-4.5) 01/27/17 07:44 Magnesium 1.7 mg/dL (1.7-2.2) 01/30/17 06:45 Iron 53 ug/dL (45-180) 01/20/17 08:36 TIBC 294 ug/dL (261-462) 01/20/17 08:36 % Saturation 18 % (20-55) L 01/20/17 08:36 Ferritin 226.0 ng/mL 01/20/17 08:36 Total Bilirubin 0.8 mg/dL (0.2-1.3) 01/29/17 09:07 AST 52 U/L (17-59) 01/29/17 09:07 ALT 43 U/L (7-56) 01/29/17 09:07 Alkaline Phosphatase 81 U/L (38-126) 01/29/17 09:07 Total Protein 6.8 g/dL (5.8-8.3) 01/29/17 09:07 Albumin 3.5 g/dL (3.0-4.8) 01/29/17 09:07 Globulin 3.3 gm/dL 01/29/17 09:07 Albumin/Globulin Ratio 1.1 (1.1-1.8) 01/29/17 09:07 Triglycerides 65 mg/dL (35-160) 01/19/17 08:10 Cholesterol 193 mg/dL (130-200) 01/19/17 08:10 LDL Cholesterol Direct 71 mg/dL (0-129) 01/19/17 08:10 HDL Cholesterol 109 mg/dL (29-60) H 01/19/17 08:10 Vitamin B12 675 pg/mL (239-931) 01/20/17 08:36 Folate > 20.0 ng/mL 01/20/17 08:36 Procalcitonin 0.11 NG/ML (0.19-0.49) L 01/22/17 08:52 TSH 3rd Generation 1.33 mIU/mL (0.46-4.68) 01/20/17 12:08 Urine Color Yellow (YELLOW) 01/24/17 08:00 Urine Appearance Clear (CLEAR) 01/24/17 08:00 Urine pH 8.5 (4.7-8.0) 01/24/17 08:00 Ur Specific [place] 1.015 (1.005-1.035) 01/24/17 08:00 Urine Protein Negative mg/dL (<30 mg/dL) 01/24/17 08:00 Urine Glucose (UA) Negative mg/dL (NEGATIVE) 01/24/17 08:00 Urine Ketones Negative mg/dL (NEGATIVE) 01/24/17 08:00 Urine Blood Negative (NEGATIVE) 01/24/17 08:00 Urine Nitrate Negative (NEGATIVE) 01/24/17 08:00 Urine Bilirubin Negative (NEGATIVE) 01/24/17 08:00 Urine Urobilinogen 2.0 E.U./dL (<1 E.U./dL) H 01/24/17 08:00 Ur Leukocyte Esterase Negative Gely/uL (NEGATIVE) 01/24/17 08:00 Urine Osmolality 190 mosm/kg (50-645) 01/29/17 14:35 Ur Random Creatinine 87 mg/dL 01/22/17 21:30 Ur Random Sodium 66 meq/L 01/29/17 14:35 Ur Random Potassium 30.3 meq/L 01/22/17 21:30 Urine Collection Time 24 HOURS 01/21/17 19:30 Urine Total Volume 2950 mL (800-1400) H 01/21/17 19:30 Stool Occult Blood Positive (NEGATIVE) H 01/20/17 07:30 Alcohol, Quantitative 264 mg/dL (0-10) H 01/18/17 21:26 HIV 1&2 Ag/Ab, 4th Gen Nonreactive (Nonreactive) 01/22/17 17:00 - Hospital Course Hospital Course: The patient is a 66 year old [place] man with a history of chronic alcohol abuse who presented to ED after suffering a ground level fall (reportedly hitting his head). In the ED he was found to have bilateral subdural hematomas with midline shift, initially 11 mm to the right and later 7 mm after conservative therapy.. Neurosurgery did not feel urgent surgical intervention was needed and therefore the patient was admitted to the ICU for close monitoring of neurologic symptoms. Through the patient's hospital couse, he was managed for alcohol withdrawal, cerebral salt wasting/SIADH, and treated for deconditioning with physical therapy that the patient mostly refused. He was discharged with his routine medications along with NaCl tablets. - Date & Time of H&P Date of H&P: 01/31/17 Time of H&P: 17:26 Discharge Exam - Head Exam Head Exam: NORMAL INSPECTION - Eye Exam Eye Exam: EOMI, Normal appearance - ENT Exam ENT Exam: Mucous Membranes Moist, Normal Oropharynx Additional comments: nose deviated to right - Neck Exam Neck exam: Normal Inspection - Respiratory Exam Respiratory Exam: Clear to PA & Lateral, NORMAL BREATHING PATTERN - Cardiovascular Exam Cardiovascular Exam: RRR, +S1, +S2 - GI/Abdominal Exam GI & Abdominal Exam: Normal Bowel Sounds, Unremarkable - Extremities Exam Extremities exam: normal capillary refill, pedal pulses present - Back Exam Back exam: NORMAL INSPECTION. absent: CVA tenderness (L), CVA tenderness (R) - Neurological Exam Neurological exam: Alert, CN II-XII Intact, Oriented x3 - Psychiatric Exam Psychiatric exam: Normal Affect, Normal Mood - Skin Skin Exam: Dry, Intact, Normal Color, Warm Discharge Plan - Discharge Medications Prescriptions: Folic Acid 1 mg PO DAILY #30 tab Gabapentin [Neurontin] 300 mg PO TID #90 cap levETIRAcetam [Keppra] 500 mg PO BID #60 tab Sodium Chloride [Sodium Chloride Tab] 2 gm PO Q6H #120 tab Thiamine [Vitamin B1 Tab] 100 mg PO DAILY #30 tab Zinc [Zinc Sulfate 220 mg Cap] 220 mg PO DAILY #30 cap - Follow Up Plan Condition: UNKNOWN Disposition: HOME/ ROUTINE Instructions: Hyponatremia (DC), Hyponatremia (GEN) Additional Instructions: Patient to abstain from alcohol and other drugs. Patient to follow-up with a PMD, or if he does not have one, come to the [facility] clinic located on the ground floor. Patient to take all medications as prescribed, unless otherwise indicated. Patient should report to an Emergency Deparment should any new or worsening of symptoms occur. Thanks Domenic Monte PGY1 Dr. Lyles, Attending Physician Referrals: PCP,RANI [Primary Care Provider] - <Emma Lyles - Last Filed: 02/02/17 14:49> Provider - Provider Date of Admission: 01/18/17 23:33 Attending physician: Emma Lyles MD Primary care physician: RANI PRIMARY CARE PROVIDER Time Spent in preparation of Discharge (in minutes): 35 Hospital Course - Lab Results Lab Results: Micro Results 01/22/17 11:15 Blood-Venous Blood Culture - Final NO GROWTH AFTER 5 DAYS 01/22/17 11:15 Blood-Venous Gram Stain - Final TEST NOT PERFORMED 01/22/17 11:00 Blood-Venous Blood Culture - Final NO GROWTH AFTER 5 DAYS 01/22/17 11:00 Blood-Venous Gram Stain - Final TEST NOT PERFORMED 01/21/17 10:40 Blood Blood Culture - Final NO GROWTH AFTER 5 DAYS 01/21/17 10:40 Blood Gram Stain - Final TEST NOT PERFORMED 01/20/17 08:47 Stool C. difficile Antigen & Toxin A,B (M - Final 01/19/17 04:15 Naris MRSA Culture (Admit) - Final MRSA NOT DETECTED Most Recent Lab Values WBC 9.0 10^3/ul (4.5-11.0) 02/02/17 10:00 RBC 3.53 10^6/uL (3.5-6.1) 02/02/17 10:00 Hgb 10.3 g/dL (14.0-18.0) L 02/02/17 10:00 Hct 31.5 % (42.0-52.0) L 02/02/17 10:00 MCV 89.2 fl (80.0-105.0) 02/02/17 10:00 MCH 29.2 pg (25.0-35.0) 02/02/17 10:00 MCHC 32.7 g/dl (31.0-37.0) 02/02/17 10:00 RDW 14.3 % (11.5-14.5) 02/02/17 10:00 Plt Count 534 10^3/uL (120.0-450.0) H 02/02/17 10:00 MPV 8.6 fl (7.0-11.0) 02/02/17 10:00 Gran % 70.1 % (50.0-68.0) H 02/02/17 10:00 Lymph % (Auto) 16.7 % (22.0-35.0) L 02/02/17 10:00 [place] % (Auto) 10.6 % (1.0-6.0) H 02/02/17 10:00 Eos % (Auto) 1.7 % (1.5-5.0) 02/02/17 10:00 Baso % (Auto) 0.9 % (0.0-3.0) 02/02/17 10:00 Gran # 6.32 (1.4-6.5) 02/02/17 10:00 Lymph # 1.5 (1.2-3.4) 02/02/17 10:00 [place] # 1.0 (0.1-0.6) H 02/02/17 10:00 Eos # 0.2 (0.0-0.7) 02/02/17 10:00 Baso # 0.08 K/mm3 (0.0-2.0) 02/02/17 10:00 Neutrophils % (Manual) 72 % (50.0-70.0) H 01/24/17 07:00 Band Neutrophils % 2 % (0-2) 01/24/17 07:00 Lymphocytes % (Manual) 7 % (22.0-35.0) L 01/24/17 07:00 Monocytes % (Manual) 17 % (1.0-6.0) H 01/24/17 07:00 Eosinophils % (Manual) 2 % (0.0-3.0) 01/24/17 07:00 Toxic Granulation 1+ 01/24/17 07:00 Platelet Evaluation Normal (NORMAL) 01/24/17 07:00 Large Platelets Present 01/24/17 07:00 Giant Platelets Present 01/24/17 07:00 Hypochromasia 1+ 01/24/17 07:00 Anisocytosis (manual) 1+ 01/24/17 07:00 Tear Drop Cells Slight 01/24/17 07:00 PT 10.5 Seconds (9.9-11.8) 01/18/17 21:26 INR 0.97 (0.93-1.08) 01/18/17 21:26 APTT 29.5 Seconds (23.7-30.8) 01/18/17 21:26 pO2 50 mm/Hg (30-55) 01/22/17 11:00 VBG pH 7.47 (7.32-7.43) H 01/22/17 11:00 VBG pCO2 38.0 (40-60) L 01/22/17 11:00 VBG HCO3 27.7 mmol/l (21-28) 01/22/17 11:00 VBG O2 Sat (Calc) 92.6 % (40-65) H 01/22/17 11:00 VBG Base Excess 3.9 mmol/L (0.0-2.0) H 01/22/17 11:00 Sodium 131 mmol/L (132-148) L 02/02/17 10:00 Potassium 4.1 mmol/L (3.6-5.0) 02/02/17 10:00 Chloride 96 mmol/L (98-107) L 02/02/17 10:00 Carbon Dioxide 24 mmol/L (21-33) 02/02/17 10:00 Anion Gap 15 (10-20) 02/02/17 10:00 BUN 15 mg/dL (7-21) 02/02/17 10:00 Creatinine 0.5 mg/dL (0.5-1.4) 02/02/17 10:00 Est GFR ( Amer) > 60 02/02/17 10:00 Est GFR (Non-Af Amer) > 60 02/02/17 10:00 Random Glucose 105 mg/dL (70-110) 02/02/17 10:00 Serum Osmolality 260 mosm/kg (271-296) L 01/20/17 09:38 Uric Acid 2.3 mg/dL (3.5-8.5) L 01/20/17 12:08 Calcium 9.3 mg/dL (8.4-10.5) 02/02/17 10:00 Phosphorus 2.9 mg/dL (2.5-4.5) 01/27/17 07:44 Magnesium 1.7 mg/dL (1.7-2.2) 01/30/17 06:45 Iron 53 ug/dL (45-180) 01/20/17 08:36 TIBC 294 ug/dL (261-462) 01/20/17 08:36 % Saturation 18 % (20-55) L 01/20/17 08:36 Ferritin 226.0 ng/mL 01/20/17 08:36 Total Bilirubin 0.5 mg/dL (0.2-1.3) 02/02/17 10:00 AST 65 U/L (17-59) H D 02/02/17 10:00 ALT 59 U/L (7-56) H 02/02/17 10:00 Alkaline Phosphatase 80 U/L (38-126) 02/02/17 10:00 Troponin I < 0.01 ng/mL 02/02/17 10:00 Total Protein 7.4 g/dL (5.8-8.3) 02/02/17 10:00 Albumin 3.9 g/dL (3.0-4.8) 02/02/17 10:00 Globulin 3.5 gm/dL 02/02/17 10:00 Albumin/Globulin Ratio 1.1 (1.1-1.8) 02/02/17 10:00 Triglycerides 65 mg/dL (35-160) 01/19/17 08:10 Cholesterol 193 mg/dL (130-200) 01/19/17 08:10 LDL Cholesterol Direct 71 mg/dL (0-129) 01/19/17 08:10 HDL Cholesterol 109 mg/dL (29-60) H 01/19/17 08:10 Vitamin B12 675 pg/mL (239-931) 01/20/17 08:36 Folate > 20.0 ng/mL 01/20/17 08:36 Procalcitonin 0.11 NG/ML (0.19-0.49) L 01/22/17 08:52 TSH 3rd Generation 1.33 mIU/mL (0.46-4.68) 01/20/17 12:08 Urine Color Yellow (YELLOW) 01/24/17 08:00 Urine Appearance Clear (CLEAR) 01/24/17 08:00 Urine pH 8.5 (4.7-8.0) 01/24/17 08:00 Ur Specific [place] 1.015 (1.005-1.035) 01/24/17 08:00 Urine Protein Negative mg/dL (<30 mg/dL) 01/24/17 08:00 Urine Glucose (UA) Negative mg/dL (NEGATIVE) 01/24/17 08:00 Urine Ketones Negative mg/dL (NEGATIVE) 01/24/17 08:00 Urine Blood Negative (NEGATIVE) 01/24/17 08:00 Urine Nitrate Negative (NEGATIVE) 01/24/17 08:00 Urine Bilirubin Negative (NEGATIVE) 01/24/17 08:00 Urine Urobilinogen 2.0 E.U./dL (<1 E.U./dL) H 01/24/17 08:00 Ur Leukocyte Esterase Negative Gely/uL (NEGATIVE) 01/24/17 08:00 Urine Osmolality 190 mosm/kg (50-645) 01/29/17 14:35 Ur Random Creatinine 87 mg/dL 01/22/17 21:30 Ur Random Sodium 66 meq/L 01/29/17 14:35 Ur Random Potassium 30.3 meq/L 01/22/17 21:30 Urine Collection Time 24 HOURS 01/21/17 19:30 Urine Total Volume 2950 mL (800-1400) H 01/21/17 19:30 Stool Occult Blood Positive (NEGATIVE) H 01/20/17 07:30 Alcohol, Quantitative 264 mg/dL (0-10) H 01/18/17 21:26 HIV 1&2 Ag/Ab, 4th Gen Nonreactive (Nonreactive) 01/22/17 17:00 Attending/Attestation - Attestation I have personally seen and examined this patient.: Yes I have fully participated in the care of the patient.: Yes I have reviewed all pertinent clinical information, including history, physical exam and plan: Yes Notes (Text): I have seen and examined the patient with the resident. Agree with the above note with the following additions/ exceptions: Briefly this is 66 year old male with history of chronic alcohol abuse who presented s/p fall due to alcohol intoxication and developed SDH. Decision was made to manage him conservatively. NS and neuro recommended to repeat CT scan in 1 week. He does not have any focal deficits. He also has hyponatremia due to SIADH vs [employer]G [employer]. Continue sodium tabs. Patient is not going thru any symptoms of alcohol withdrawal. PT cleared the patient to go home. Upon discharge patient will follow up with [facility] clinic. Dr Emma Lyles
[2017-02-01] MEDS: Pantoprazole 40 mg Susp UD PO SCH ×2 (05:43→19:13)
[2017-02-01] MEDS: Multivitamin With Minerals Tab PO SCH (08:43)
[2017-02-01 13:39] LABS: BLOOD UREA NITROGEN 12 mg/dL (7-21); CARBON DIOXIDE 24 mmol/L (21-33); CHLORIDE 97 mmol/L (98-107); GFR AFRICAN-AMERICAN > 60; GLUCOSE,RANDOM 125 mg/dL (70-110); POTASSIUM 3.7 mmol/L (3.6-5.0); SODIUM 132 mmol/L (132-148)
--- NOTE | 2017-02-01 16:03 | PN ---
DATE: NEPHROLOGY FOLLOWUP NOTE SUBJECTIVE: A 66-year-old male with past medical history of alcohol abuse admitted with acute subdural hematoma. Nephrology following for hyponatremia. The patient tolerating diet well. He has not been out of bed today. PHYSICAL EXAMINATION: GENERAL: No distress. VITAL SIGNS: Blood pressure 120/79, heart rate 78, respirations 22, temperature 98.9, O2 sat 97% on room air. HEENT: Moist mucous membranes. Nonicteric. RESPIRATORY: Lungs clear to auscultation bilaterally. No rales, no rhonchi, no wheezes. HEART: S1 and S2 normal. Irregular rate. ABDOMEN: Soft, nondistended. GENITOURINARY: No bladder distention. EXTREMITIES: No leg edema. SKIN: Warm. No cyanosis. LABORATORY DATA: CBC from 3 days ago; WBC 10.2, hemoglobin 9.5, hematocrit 29.0, platelets 592. Chemistry panel from today; sodium 132, potassium 3.7, chloride 97, bicarbonate 24, BUN 12, creatinine 0.5, calcium 9.0, glucose 125. ASSESSMENT AND PLAN: 1. Hyponatremia. 2. 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 3. The patient is stable for discharge from renal point of view. She will continue on salt tablets and 1 liter fluid restriction. Jair Holder MD
--- NOTE | 2017-02-01 23:38 | CP.PCM.PN ---
<KANDICE MONTE - Last Filed: 02/01/17 23:34> Subjective - Date & Time of Evaluation Date of Evaluation: 02/01/17 Time of Evaluation: 09:00 - Subjective Subjective: patient was seen and examined bedside. still not verbal enough to speak coherently but does answer simple questions. Objective - Vital Signs/Intake and Output Vital Signs (last 24 hours): Temp Pulse Resp BP Pulse Ox 100.4 F H 94 H 18 123/78 95 02/01/17 16:00 02/01/17 16:00 02/01/17 16:00 02/01/17 16:00 02/01/17 16:00 Intake and Output: 02/01/17 02/02/17 18:59 06:59 Intake Total 1204 520 Balance 1204 520 - Medications Medications: Current Medications Acetaminophen (Tylenol 325 Mg Supp) 325 mg RC Q6H PRN PRN Reason: Fever >100.4 F Last Admin: 01/23/17 06:00 Dose: 325 mg Acetaminophen (Tylenol 325mg Tab) 650 mg PO Q4H PRN PRN Reason: Fever >100.4 F Last Admin: 01/30/17 16:33 Dose: 650 mg Folic Acid (Folic Acid) 1 mg PO DAILY [facility] Last Admin: 02/01/17 09:51 Dose: 1 mg Gabapentin (Neurontin) 300 mg PO TID SUMIT PRN Reason: Protocol Last Admin: 02/01/17 19:13 Dose: 300 mg Levetiracetam (Keppra) 500 mg PO BID [facility] Last Admin: 02/01/17 19:13 Dose: 500 mg Lorazepam (Ativan) 1 mg IM Q6H PRN; Protocol PRN Reason: Symptoms of alcohol withdrawl Last Admin: 01/29/17 10:02 Dose: 1 mg Multivitamins/Minerals (Therapeutic-M Tab) 1 tab PO 0800 [facility] Last Admin: 02/01/17 08:43 Dose: 1 tab Pantoprazole Sodium (Protonix Susp) 40 mg PO 0600,1600 [facility] Last Admin: 02/01/17 19:13 Dose: 40 mg Sodium Chloride (Sodium Chloride Tab) 2 gm PO Q6H SUMIT Last Admin: 02/01/17 21:23 Dose: 2 gm Thiamine HCl (Vitamin B1 Tab) 100 mg PO DAILY [facility] Last Admin: 02/01/17 09:51 Dose: 100 mg Zinc Sulfate (Zinc Sulfate 220 Mg Cap) 220 mg PO DAILY SUMIT Last Admin: 02/01/17 10:23 Dose: 220 mg - Labs Labs: 01/29/17 09:07 02/01/17 12:45 PT 10.5 Seconds (9.9-11.8) 01/18/17 21:26 INR 0.97 (0.93-1.08) 01/18/17 21:26 APTT 29.5 Seconds (23.7-30.8) 01/18/17 21:26 - Additional Findings Additional findings: - Constitutional Appears: Well, Non-toxic - Head Exam Head Exam: ATRAUMATIC, NORMOCEPHALIC - Eye Exam Eye Exam: EOMI, Normal appearance, PERRL - ENT Exam ENT Exam: Mucous Membranes Moist, Normal Oropharynx Additional comments: Nose is erythematous and deviated to the left - Neck Exam Neck Exam: Normal Inspection. absent: Lymphadenopathy, Thyromegaly - Respiratory Exam Respiratory Exam: Clear to Ausculation Bilateral. absent: NORMAL BREATHING PATTERN - Cardiovascular Exam Cardiovascular Exam: RRR, +S1, +S2 - GI/Abdominal Exam GI & Abdominal Exam: Soft, Normal Bowel Sounds. absent: Rebound - Back Exam Back Exam: NORMAL INSPECTION. absent: CVA tenderness (L), CVA tenderness (R) - Neurological Exam Neurological Exam: Alert, Awake, CN II-XII Intact, Reflexes Normal Neuro motor strength exam: Left Upper Extremity: 4, Right Upper Extremity: 4, Left Lower Extremity: 4, Right Lower Extremity: 4 Additional comments: patient is confused and not verbal; answers simple questions, unclear if language barrier (pt is english) or due to AMS - Psychiatric Exam Psychiatric exam: Normal Affect, Normal Mood - Skin Skin Exam: Dry, Intact, Normal Color, Warm Additional comments: patient has pressure ulcer in sacrum and one on left elbow Assessment and Plan - Assessment and Plan (Free Text) Assessment: 66 year old male with past medical history of chronic ETOH abuse who presented with H/O fall secondary to alcohol intoxication. He has to have bilateral subdural hematomas and was admitted to the ICU. He was seen by neurology and neurosurgery and was managed conservatively. Pt was cleared for d/c, however, the sister has given an excuse twice as to why she can't pick her brother up from the hospital and so he has not been able to be d/c yet. Plan: cont mgmt as outlined in prior progress notes and for d/c info, refer to d/c summary. Patient was seen, evaluated and discussed with attending, Dr Trupti Monte PGY1 <Emma Lyles - Last Filed: 02/02/17 14:49> Objective - Vital Signs/Intake and Output Vital Signs (last 24 hours): Temp Pulse Resp BP Pulse Ox 98.7 F 87 20 120/79 98 02/02/17 07:30 02/02/17 07:30 02/02/17 07:30 02/02/17 07:30 02/02/17 07:30 Intake and Output: 02/02/17 02/02/17 06:59 18:59 Intake Total 1240 Balance 1240 - Medications Medications: Current Medications Acetaminophen (Tylenol 325 Mg Supp) 325 mg RC Q6H PRN PRN Reason: Fever >100.4 F Last Admin: 01/23/17 06:00 Dose: 325 mg Acetaminophen (Tylenol 325mg Tab) 650 mg PO Q4H PRN PRN Reason: Fever >100.4 F Last Admin: 01/30/17 16:33 Dose: 650 mg Folic Acid (Folic Acid) 1 mg PO DAILY SUMIT Last Admin: 02/02/17 10:30 Dose: 1 mg Gabapentin (Neurontin) 300 mg PO TID SUMIT PRN Reason: Protocol Last Admin: 02/01/17 19:13 Dose: 300 mg Levetiracetam (Keppra) 500 mg PO BID SUMIT Last Admin: 02/02/17 10:30 Dose: 500 mg Lorazepam (Ativan) 1 mg IM Q6H PRN; Protocol PRN Reason: Symptoms of alcohol withdrawl Last Admin: 01/29/17 10:02 Dose: 1 mg Multivitamins/Minerals (Therapeutic-M Tab) 1 tab PO 0800 SUMIT Last Admin: 02/02/17 10:29 Dose: 1 tab Pantoprazole Sodium (Protonix Susp) 40 mg PO 0600,1600 SUMIT Last Admin: 02/01/17 19:13 Dose: 40 mg Sodium Chloride (Sodium Chloride Tab) 2 gm PO Q6H SUMIT Last Admin: 02/02/17 03:22 Dose: 2 gm Thiamine HCl (Vitamin B1 Tab) 100 mg PO DAILY SUMIT Last Admin: 02/02/17 10:30 Dose: 100 mg Zinc Sulfate (Zinc Sulfate 220 Mg Cap) 220 mg PO DAILY SUMIT Last Admin: 02/02/17 10:29 Dose: 220 mg - Labs Labs: 02/02/17 10:00 02/02/17 10:00 PT 10.5 Seconds (9.9-11.8) 01/18/17 21:26 INR 0.97 (0.93-1.08) 01/18/17 21:26 APTT 29.5 Seconds (23.7-30.8) 01/18/17 21:26 Attending/Attestation - Attestation I have personally seen and examined this patient.: Yes I have fully participated in the care of the patient.: Yes I have reviewed all pertinent clinical information, including history, physical exam and plan: Yes Notes (Text): I have seen and examined the patient with the resident. Agree with the above note with the following additions/ exceptions: Briefly this is 66 year old male with history of chronic alcohol abuse who presented s/p fall due to alcohol intoxication and developed SDH. Decision was made to manage him conservatively. NS and neuro recommended to repeat CT scan in 1 week. He does not have any focal deficits. 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 Continue sodium tabs. Patient is not going thru any symptoms of alcohol withdrawal. PT cleared the patient to go home. We are waiting for family to pick him up. Upon discharge patient will [place] [facility] Emma Lyles
[2017-02-02] MEDS ORDERED: Pantoprazole 40 mg EC Tab PO STA (09:57)
[2017-02-02] MEDS: Multivitamin With Minerals Tab PO SCH (10:29)
[2017-02-02 11:19] LABS: BASO # 0.08 K/mm3 (0.0-2.0); BASO % 0.9 % (0.0-3.0); EOS # 0.2 (0.0-0.7); EOS % 1.7 % (1.5-5.0); GRAN # 6.32 (1.4-6.5); GRAN % 70.1 % (50.0-68.0); HEMATOCRIT 31.5 % (42.0-52.0); LYMPH # 1.5 (1.2-3.4); LYMPH % 16.7 % (22.0-35.0); MEAN CELL VOLUME 89.2 fl (80.0-105.0); MEAN CORPUSCULAR HEMOGLOBIN 29.2 pg (25.0-35.0); MEAN CORPUSCULAR HGB CONC 32.7 g/dl (31.0-37.0); MEAN PLATELET VOLUME 8.6 fl (7.0-11.0); MONO % 10.6 % (1.0-6.0); RED CELL DISTRIBUTION WIDTH 14.3 % (11.5-14.5)
[2017-02-02 11:26] LABS: ALB/GLOB RATIO 1.1 (1.1-1.8); ALKALINE PHOSPHATASE 80 U/L (38-126); ALT/SGPT 59 U/L (7-56); AST/SGOT 65 U/L (17-59); BILIRUBIN,TOTAL 0.5 mg/dL (0.2-1.3); BLOOD UREA NITROGEN 15 mg/dL (7-21); CALCIUM 9.3 mg/dL (8.4-10.5); CARBON DIOXIDE 24 mmol/L (21-33); CHLORIDE 96 mmol/L (98-107); GFR AFRICAN-AMERICAN > 60; GLUCOSE,RANDOM 105 mg/dL (70-110); POTASSIUM 4.1 mmol/L (3.6-5.0); SODIUM 131 mmol/L (132-148); TOTAL PROTEIN 7.4 g/dL (5.8-8.3)
[2017-02-02 11:39] LABS: TROPONIN I < 0.01 ng/mL
--- NOTE | 2017-02-02 14:15 | CARD ---
APPROVED REPORT EKG Measurement Heart [id number] <Conclusion> Sinus rhythm with premature atrial complexes Voltage criteria for left ventricular hypertrophy Abnormal ECG
--- NOTE | 2017-02-02 14:28 | PN ---
DATE: 02/02/2017 SUBJECTIVE: The patient is seen in bed, in no acute distress, nontoxic. PHYSICAL EXAMINATION VITAL SIGNS: Temperature is 98, T-max is 100.4, blood pressure is 120/70, respiratory rate of 20, heart rate of 87. HEENT: Unremarkable. NECK: Supple. LUNGS: Have decreased breath sounds. HEART: Normal S1 and S2. ABDOMEN: Soft and nontender. LABORATORY DATA: Reveals a white count of 9, hemoglobin of 10, platelets of 534. Chemistry reveals a BUN of 13, creatinine of 0.5, and procalcitonin is 0.11. Review of orders revealed the patient should be off of antibiotics and appeared to have a low-grade fever yesterday, was resolved today and the patient did have white count on 01/28/2017 of 11,800, which has also resolved 9,000 today. The patient is at risk for developing nosocomial infections. ASSESSMENT AND PLAN: This is a 66-year-old male with systemic inflammatory response syndrome, alcohol withdrawal syndrome, substernal hematoma, no evidence of sepsis, and chronic alcoholism, gastroesophageal reflux disease, gastritis, history of cholecystectomy, off of antibiotics. Roque Chowdary MD
--- NOTE | 2017-02-02 23:10 | CP.PCM.PN ---
<KANDICE MONTE - Last Filed: 02/02/17 23:06> Subjective - Date & Time of Evaluation Date of Evaluation: 02/02/17 Time of Evaluation: 10:45 - Subjective Subjective: patient seen and examined at bedside. pt is pointing to his chest and is mumbling. pt is at same baseline of altered mental state Objective - Vital Signs/Intake and Output Vital Signs (last 24 hours): Temp Pulse Resp BP Pulse Ox 97.6 F 101 H 20 135/85 99 02/02/17 16:00 02/02/17 16:00 02/02/17 16:00 02/02/17 16:00 02/02/17 16:00 Intake and Output: 02/02/17 02/03/17 18:59 06:59 Intake Total 600 360 Balance 600 360 - Medications Medications: Current Medications Acetaminophen (Tylenol 325 Mg Supp) 325 mg RC Q6H PRN PRN Reason: Fever >100.4 F Last Admin: 01/23/17 06:00 Dose: 325 mg Acetaminophen (Tylenol 325mg Tab) 650 mg PO Q4H PRN PRN Reason: Fever >100.4 F Last Admin: 01/30/17 16:33 Dose: 650 mg Folic Acid (Folic Acid) 1 mg PO DAILY [facility] Last Admin: 02/02/17 10:30 Dose: 1 mg Gabapentin (Neurontin) 300 mg PO TID [facility] PRN Reason: Protocol Last Admin: 02/01/17 19:13 Dose: 300 mg Levetiracetam (Keppra) 500 mg PO BID [facility] Last Admin: 02/02/17 10:30 Dose: 500 mg Lorazepam (Ativan) 1 mg IM Q6H PRN; Protocol PRN Reason: Symptoms of alcohol withdrawl Last Admin: 01/29/17 10:02 Dose: 1 mg Multivitamins/Minerals (Therapeutic-M Tab) 1 tab PO 0800 [facility] Last Admin: 02/02/17 10:29 Dose: 1 tab Pantoprazole Sodium (Protonix Susp) 40 mg PO 0600,1600 [facility] Last Admin: 02/01/17 19:13 Dose: 40 mg Sodium Chloride (Sodium Chloride Tab) 2 gm PO Q6H [facility] Last Admin: 02/02/17 03:22 Dose: 2 gm Thiamine HCl (Vitamin B1 Tab) 100 mg PO DAILY [facility] Last Admin: 02/02/17 10:30 Dose: 100 mg Zinc Sulfate (Zinc Sulfate 220 Mg Cap) 220 mg PO DAILY [facility] Last Admin: 02/02/17 10:29 Dose: 220 mg - Labs Labs: 02/02/17 10:00 02/02/17 10:00 PT 10.5 Seconds (9.9-11.8) 01/18/17 21:26 INR 0.97 (0.93-1.08) 01/18/17 21:26 APTT 29.5 Seconds (23.7-30.8) 01/18/17 21:26 - Additional Findings Additional findings: - Constitutional Appears: Well, Non-toxic - Head Exam Head Exam: ATRAUMATIC, NORMOCEPHALIC - Eye Exam Eye Exam: EOMI, Normal appearance, PERRL - ENT Exam ENT Exam: Mucous Membranes Moist, Normal Oropharynx Additional comments: Nose is erythematous and deviated to the left (chronic) - Neck Exam Neck Exam: Normal Inspection. absent: Lymphadenopathy, Thyromegaly - Respiratory Exam Respiratory Exam: Clear to Ausculation Bilateral. absent: NORMAL BREATHING PATTERN - Cardiovascular Exam Cardiovascular Exam: RRR, +S1, +S2 - GI/Abdominal Exam GI & Abdominal Exam: Soft, Normal Bowel Sounds. absent: Rebound - Back Exam Back Exam: NORMAL INSPECTION. absent: CVA tenderness (L), CVA tenderness (R) - Neurological Exam Neurological Exam: Alert, Awake, CN II-XII Intact, Reflexes Normal Neuro motor strength exam: Left Upper Extremity: 4, Right Upper Extremity: 4, Left Lower Extremity: 4, Right Lower Extremity: 4 Additional comments: patient is verbal but communicates in emirati; answers simple questions, unclear if language barrier (pt is emirati) or due to AMS - Psychiatric Exam Psychiatric exam: Normal Affect, Normal Mood - Skin Skin Exam: Dry, Intact, Normal Color, Warm Assessment and Plan - Assessment and Plan (Free Text) Assessment: 66 year old male with past medical history of chronic ETOH abuse who presented with H/O fall secondary to alcohol intoxication. He has to have bilateral subdural hematomas and was admitted to the ICU. He was seen by neurology and neurosurgery and was managed conservatively. Pt was cleared for d/c, however, waiting for the sister to pick him tomorrow (Friday). Plan: cont mgmt as outlined in prior progress notes and for d/c info, refer to d/c summary. Repeat CT Head as f/u of [facility] Patient was seen, evaluated and discussed with attending, Dr Trupti Monte PGY1 <Emma Lyles - Last Filed: 02/03/17 15:38> Objective - Vital Signs/Intake and Output Vital Signs (last 24 hours): Temp Pulse Resp BP Pulse Ox 98.7 F 90 22 133/77 98 02/03/17 08:02 02/03/17 08:02 02/03/17 08:02 02/03/17 08:02 02/03/17 08:02 Intake and Output: 02/03/17 02/03/17 06:59 18:59 Intake Total 1020 480 Balance 1020 480 - Labs Labs: 02/03/17 07:35 02/03/17 07:35 PT 10.5 Seconds (9.9-11.8) 01/18/17 21:26 INR 0.97 (0.93-1.08) 01/18/17 21:26 APTT 29.5 Seconds (23.7-30.8) 01/18/17 21:26 Attending/Attestation - Attestation I have personally seen and examined this patient.: Yes I have fully participated in the care of the patient.: Yes I have reviewed all pertinent clinical information, including history, physical exam and plan: Yes Notes (Text): I have seen and examined the patient with the resident. Agree with the above note with the following additions/ exceptions: Briefly this is 66 year old male with history of chronic alcohol abuse who presented s/p fall due to alcohol intoxication and developed SDH. Decision was made to manage him conservatively. NS and neuro recommended to repeat CT scan which will be done tomorrow. He does not have any focal deficits. He also has hyponatremia due to [employer] which has been improving. Continue sodium tabs. Patient is not going thru any symptoms of alcohol withdrawal. PT cleared the patient to go home. We are waiting for family to pick him up. Today he complained of chest pain however he appeared comfortable. VS wnl. EKG and troponin ordered. Upon discharge patient [place] [facility] [facility] Emma Lyles
[2017-02-03] MEDS: Pantoprazole 40 mg Susp UD PO SCH (05:21)
[2017-02-03 07:40] LABS: BASO # 0.07 K/mm3 (0.0-2.0); BASO % 0.9 % (0.0-3.0); EOS # 0.1 (0.0-0.7); EOS % 1.6 % (1.5-5.0); GRAN # 5.86 (1.4-6.5); GRAN % 72.3 % (50.0-68.0); HEMATOCRIT 29.3 % (42.0-52.0); LYMPH # 1.1 (1.2-3.4); LYMPH % 13.8 % (22.0-35.0); MEAN CELL VOLUME 88.3 fl (80.0-105.0); MEAN CORPUSCULAR HEMOGLOBIN 28.9 pg (25.0-35.0); MEAN CORPUSCULAR HGB CONC 32.8 g/dl (31.0-37.0); MEAN PLATELET VOLUME 8.2 fl (7.0-11.0); MONO # 0.9 (0.1-0.6); MONO % 11.4 % (1.0-6.0); RED CELL DISTRIBUTION WIDTH 14.3 % (11.5-14.5); WHITE BLOOD COUNT 8.1 10^3/ul (4.5-11.0)
[2017-02-03 08:02] VITALS: BP 133/77; PULSE 90; RESP 22; TEMP 98.7; O2SAT 98
[2017-02-03 08:21] LABS: ALB/GLOB RATIO 1.1 (1.1-1.8); ALKALINE PHOSPHATASE 88 U/L (38-126); ALT/SGPT 57 U/L (7-56); AST/SGOT 63 U/L (17-59); BILIRUBIN,TOTAL 0.6 mg/dL (0.2-1.3); BLOOD UREA NITROGEN 11 mg/dL (7-21); CALCIUM 9.2 mg/dL (8.4-10.5); CARBON DIOXIDE 28 mmol/L (21-33); CHLORIDE 95 mmol/L (98-107); GFR AFRICAN-AMERICAN > 60; GLUCOSE,RANDOM 98 mg/dL (70-110); POTASSIUM 3.9 mmol/L (3.6-5.0); SODIUM 132 mmol/L (132-148); TOTAL PROTEIN 7.2 g/dL (5.8-8.3)
[2017-02-03] MEDS: Multivitamin With Minerals Tab PO SCH (09:00)
--- NOTE | 2017-02-03 09:00 | PN ---
SUBJECTIVE: The patient is in bed, in no acute distress, nontoxic. PHYSICAL EXAMINATION VITAL SIGNS: Temperature is 98, blood pressure is 130/80, respiratory rate of 22, heart rate of 95. HEENT: Unremarkable. NECK: Supple. HEART: Normal S1, S2. LUNGS: Decreased breath sounds. ABDOMEN: Soft, nontender. LABORATORY EXAMINATION: Reveals a white count of 10,000; hemoglobin of 9. Chemistries reveal a BUN of 11, creatinine of 0.6. Urinalysis is noted. Serology is noted. Microbiology is noted. ASSESSMENT AND PLAN: A 66-year-old with systemic inflammatory response syndrome, alcohol withdrawal syndrome due to subdural hematoma, and no evidence of sepsis at this point, chronic alcoholism, gastroesophageal reflux disease, gastritis, history of cholecystectomy, currently off of antibiotics, afebrile; the patient also with a history of appendectomy. Review of orders reveals the patient to be off of antibiotics, he has a risk for developing nosocomial infection. Roque Chowdary MD
--- NOTE | 2017-02-03 09:32 | CT ---
PROCEDURE: CT HEAD WITHOUT CONTRAST. HISTORY: follow up of SDH COMPARISON: 01/22/2017. TECHNIQUE: Axial computed tomography images were obtained through the head/brain without intravenous contrast. Radiation dose: Total exam DLP = 882.75 MGy-cm. This CT exam was performed using one or more of the following dose reduction techniques: Automated exposure control, adjustment of the mA and/or kV according to patient size, and/or use of iterative reconstruction technique. FINDINGS: HEMORRHAGE: There is interval near complete resolution of right subdural hematoma. There is interval significant resolution of the acute hemorrhagic products with residual subacute frontal and parietal convexity subdural hematoma on the left. BRAIN: There is mild local and regional mass effect on the left with effacement of the left cortical sulci. There is a 8 mm midline shift from left to right without herniation. There are moderate chronic microangiopathic changes. VENTRICLES: There is mild age-related global parenchymal volume loss and proportionate enlargement of the ventricles and cortical sulci. CALVARIUM: Status post left parietal craniotomy. PARANASAL SINUSES: Predominantly clear. MASTOID AIR CELLS: Predominantly clear. OTHER FINDINGS: None. IMPRESSION: 1. Resolving left convexity subacute on chronic subdural hematoma with local and regional mass effect and 8 mm midline shift from left to right without herniation. No hydrocephalus. 2. Interval near complete resolution of right subdural hematoma.
--- NOTE | 2017-02-03 12:50 | CP.PCM.PN ---
Subjective - Date & Time of Evaluation Date of Evaluation: 02/03/17 Time of Evaluation: 09:35 Objective - Vital Signs/Intake and Output Vital Signs (last 24 hours): Temp Pulse Resp BP Pulse Ox 98.7 F 90 22 133/77 98 02/03/17 08:02 02/03/17 08:02 02/03/17 08:02 02/03/17 08:02 02/03/17 08:02 Intake and Output: 02/03/17 02/03/17 06:59 18:59 Intake Total 1020 Balance 1020 - Medications Medications: Current Medications Acetaminophen (Tylenol 325 Mg Supp) 325 mg RC Q6H PRN PRN Reason: Fever >100.4 F Last Admin: 01/23/17 06:00 Dose: 325 mg Acetaminophen (Tylenol 325mg Tab) 650 mg PO Q4H PRN PRN Reason: Fever >100.4 F Last Admin: 01/30/17 16:33 Dose: 650 mg Folic Acid (Folic Acid) 1 mg PO DAILY [facility] Last Admin: 02/03/17 10:29 Dose: 1 mg Gabapentin (Neurontin) 300 mg PO TID [facility] PRN Reason: Protocol Last Admin: 02/03/17 10:28 Dose: 300 mg Levetiracetam (Keppra) 500 mg PO BID [facility] Last Admin: 02/03/17 10:29 Dose: 500 mg Lorazepam (Ativan) 1 mg IM Q6H PRN; Protocol PRN Reason: Symptoms of alcohol withdrawl Last Admin: 02/03/17 11:56 Dose: 1 mg Multivitamins/Minerals (Therapeutic-M Tab) 1 tab PO 0800 [facility] Last Admin: 02/03/17 09:00 Dose: 1 tab Pantoprazole Sodium (Protonix Susp) 40 mg PO 0600,1600 [facility] Last Admin: 02/03/17 05:21 Dose: 40 mg Sodium Chloride (Sodium Chloride Tab) 2 gm PO Q6H [facility] Last Admin: 02/03/17 08:45 Dose: 2 gm Thiamine HCl (Vitamin B1 Tab) 100 mg PO DAILY [facility] Last Admin: 02/03/17 10:30 Dose: 100 mg Zinc Sulfate (Zinc Sulfate 220 Mg Cap) 220 mg PO DAILY [facility] Last Admin: 02/03/17 10:30 Dose: 220 mg - Labs Labs: 02/03/17 07:35 02/03/17 07:35 PT 10.5 Seconds (9.9-11.8) 01/18/17 21:26 INR 0.97 (0.93-1.08) 01/18/17 21:26 APTT 29.5 Seconds (23.7-30.8) 01/18/17 21:26
--- NOTE | 2017-02-03 13:02 | RAD ---
HISTORY: r/o infiltrate COMPARISON: 01/22/2017 FINDINGS: LUNGS: The lungs are hyperinflated and there is peribronchial thickening with chronic changes in both lungs. PLEURA: No significant pleural effusion identified, no pneumothorax apparent. CARDIOVASCULAR: Normal. OSSEOUS STRUCTURES: No significant abnormalities. VISUALIZED UPPER ABDOMEN: Normal. OTHER FINDINGS: None. IMPRESSION: No acute findings.
--- NOTE | 2017-02-03 19:44 | CP.PCM.DIS ---
<Nazario Stoll - Last Filed: 02/03/17 19:35> Provider - Provider Date of Admission: 01/18/17 23:33 Attending physician: Emma Lyles MD Primary care physician: NO PRIMARY CARE PROVIDER Consults: Dr. nIgram Neurosurgery Dr. Chowdary Infectious Disease Dr. Holder Nephrology Time Spent in preparation of Discharge (in minutes): 65 Hospital Course - Lab Results Lab Results: Micro Results 01/22/17 11:15 Blood-Venous Blood Culture - Final NO GROWTH AFTER 5 DAYS 01/22/17 11:15 Blood-Venous Gram Stain - Final TEST NOT PERFORMED 01/22/17 11:00 Blood-Venous Blood Culture - Final NO GROWTH AFTER 5 DAYS 01/22/17 11:00 Blood-Venous Gram Stain - Final TEST NOT PERFORMED 01/21/17 10:40 Blood Blood Culture - Final NO GROWTH AFTER 5 DAYS 01/21/17 10:40 Blood Gram Stain - Final TEST NOT PERFORMED 01/20/17 08:47 Stool C. difficile Antigen & Toxin A,B (M - Final 01/19/17 04:15 Naris MRSA Culture (Admit) - Final MRSA NOT DETECTED Most Recent Lab Values WBC 8.1 10^3/ul (4.5-11.0) 02/03/17 07:35 RBC 3.32 10^6/uL (3.5-6.1) L 02/03/17 07:35 Hgb 9.6 g/dL (14.0-18.0) L 02/03/17 07:35 Hct 29.3 % (42.0-52.0) L 02/03/17 07:35 MCV 88.3 fl (80.0-105.0) 02/03/17 07:35 MCH 28.9 pg (25.0-35.0) 02/03/17 07:35 MCHC 32.8 g/dl (31.0-37.0) 02/03/17 07:35 RDW 14.3 % (11.5-14.5) 02/03/17 07:35 Plt Count 534 10^3/uL (120.0-450.0) H 02/03/17 07:35 MPV 8.2 fl (7.0-11.0) 02/03/17 07:35 Gran % 72.3 % (50.0-68.0) H 02/03/17 07:35 Lymph % (Auto) 13.8 % (22.0-35.0) L 02/03/17 07:35 [place] % (Auto) 11.4 % (1.0-6.0) H 02/03/17 07:35 Eos % (Auto) 1.6 % (1.5-5.0) 02/03/17 07:35 Baso % (Auto) 0.9 % (0.0-3.0) 02/03/17 07:35 Gran # 5.86 (1.4-6.5) 02/03/17 07:35 Lymph # 1.1 (1.2-3.4) L 02/03/17 07:35 [place] # 0.9 (0.1-0.6) H 02/03/17 07:35 Eos # 0.1 (0.0-0.7) 02/03/17 07:35 Baso # 0.07 K/mm3 (0.0-2.0) 02/03/17 07:35 Neutrophils % (Manual) 72 % (50.0-70.0) H 01/24/17 07:00 Band Neutrophils % 2 % (0-2) 01/24/17 07:00 Lymphocytes % (Manual) 7 % (22.0-35.0) L 01/24/17 07:00 Monocytes % (Manual) 17 % (1.0-6.0) H 01/24/17 07:00 Eosinophils % (Manual) 2 % (0.0-3.0) 01/24/17 07:00 Toxic Granulation 1+ 01/24/17 07:00 Platelet Evaluation Normal (NORMAL) 01/24/17 07:00 Large Platelets Present 01/24/17 07:00 Giant Platelets Present 01/24/17 07:00 Hypochromasia 1+ 01/24/17 07:00 Anisocytosis (manual) 1+ 01/24/17 07:00 Tear Drop Cells Slight 01/24/17 07:00 PT 10.5 Seconds (9.9-11.8) 01/18/17 21:26 INR 0.97 (0.93-1.08) 01/18/17 21:26 APTT 29.5 Seconds (23.7-30.8) 01/18/17 21:26 pO2 50 mm/Hg (30-55) 01/22/17 11:00 VBG pH 7.47 (7.32-7.43) H 01/22/17 11:00 VBG pCO2 38.0 (40-60) L 01/22/17 11:00 VBG HCO3 27.7 mmol/l (21-28) 01/22/17 11:00 VBG O2 Sat (Calc) 92.6 % (40-65) H 01/22/17 11:00 VBG Base Excess 3.9 mmol/L (0.0-2.0) H 01/22/17 11:00 Sodium 132 mmol/L (132-148) 02/03/17 07:35 Potassium 3.9 mmol/L (3.6-5.0) 02/03/17 07:35 Chloride 95 mmol/L (98-107) L 02/03/17 07:35 Carbon Dioxide 28 mmol/L (21-33) 02/03/17 07:35 Anion Gap 13 (10-20) 02/03/17 07:35 BUN 11 mg/dL (7-21) 02/03/17 07:35 Creatinine 0.5 mg/dL (0.5-1.4) 02/03/17 07:35 Est GFR ( Amer) > 60 02/03/17 07:35 Est GFR (Non-Af Amer) > 60 02/03/17 07:35 Random Glucose 98 mg/dL (70-110) 02/03/17 07:35 Serum Osmolality 260 mosm/kg (271-296) L 01/20/17 09:38 Uric Acid 2.3 mg/dL (3.5-8.5) L 01/20/17 12:08 Calcium 9.2 mg/dL (8.4-10.5) 02/03/17 07:35 Phosphorus 2.9 mg/dL (2.5-4.5) 01/27/17 07:44 Magnesium 1.7 mg/dL (1.7-2.2) 01/30/17 06:45 Iron 53 ug/dL (45-180) 01/20/17 08:36 TIBC 294 ug/dL (261-462) 01/20/17 08:36 % Saturation 18 % (20-55) L 01/20/17 08:36 Ferritin 226.0 ng/mL 01/20/17 08:36 Total Bilirubin 0.6 mg/dL (0.2-1.3) 02/03/17 07:35 AST 63 U/L (17-59) H 02/03/17 07:35 ALT 57 U/L (7-56) H 02/03/17 07:35 Alkaline Phosphatase 88 U/L (38-126) 02/03/17 07:35 Troponin I < 0.01 ng/mL 02/02/17 10:00 Total Protein 7.2 g/dL (5.8-8.3) 02/03/17 07:35 Albumin 3.7 g/dL (3.0-4.8) 02/03/17 07:35 Globulin 3.5 gm/dL 02/03/17 07:35 Albumin/Globulin Ratio 1.1 (1.1-1.8) 02/03/17 07:35 Triglycerides 65 mg/dL (35-160) 01/19/17 08:10 Cholesterol 193 mg/dL (130-200) 01/19/17 08:10 LDL Cholesterol Direct 71 mg/dL (0-129) 01/19/17 08:10 HDL Cholesterol 109 mg/dL (29-60) H 01/19/17 08:10 Vitamin B12 675 pg/mL (239-931) 01/20/17 08:36 Folate > 20.0 ng/mL 01/20/17 08:36 Procalcitonin 0.11 NG/ML (0.19-0.49) L 01/22/17 08:52 TSH 3rd Generation 1.33 mIU/mL (0.46-4.68) 01/20/17 12:08 Urine Color Yellow (YELLOW) 01/24/17 08:00 Urine Appearance Clear (CLEAR) 01/24/17 08:00 Urine pH 8.5 (4.7-8.0) 01/24/17 08:00 Ur Specific [place] 1.015 (1.005-1.035) 01/24/17 08:00 Urine Protein Negative mg/dL (<30 mg/dL) 01/24/17 08:00 Urine Glucose (UA) Negative mg/dL (NEGATIVE) 01/24/17 08:00 Urine Ketones Negative mg/dL (NEGATIVE) 01/24/17 08:00 Urine Blood Negative (NEGATIVE) 01/24/17 08:00 Urine Nitrate Negative (NEGATIVE) 01/24/17 08:00 Urine Bilirubin Negative (NEGATIVE) 01/24/17 08:00 Urine Urobilinogen 2.0 E.U./dL (<1 E.U./dL) H 01/24/17 08:00 Ur Leukocyte Esterase Negative Gely/uL (NEGATIVE) 01/24/17 08:00 Urine Osmolality 190 mosm/kg (50-645) 01/29/17 14:35 Ur Random Creatinine 87 mg/dL 01/22/17 21:30 Ur Random Sodium 66 meq/L 01/29/17 14:35 Ur Random Potassium 30.3 meq/L 01/22/17 21:30 Urine Collection Time 24 HOURS 01/21/17 19:30 Urine Total Volume 2950 mL (800-1400) H 01/21/17 19:30 Stool Occult Blood Positive (NEGATIVE) H 01/20/17 07:30 Alcohol, Quantitative 264 mg/dL (0-10) H 01/18/17 21:26 HIV 1&2 Ag/Ab, 4th Gen Nonreactive (Nonreactive) 01/22/17 17:00 - Hospital Course Hospital Course: The patient is a 66 year old [place] man with a history of chronic alcohol abuse who presented to ED after suffering a ground level fall (reportedly hitting his head). In the ED he was found to have bilateral subdural hematomas with midline shift, initially 11 mm to the right and later 7 mm after conservative therapy. Neurosurgery did not feel urgent surgical intervention was needed and therefore the patient was admitted to the ICU for close monitoring of neurologic symptoms. [facility], he was managed for alcohol withdrawal, cerebral salt wasting/SIADH, and treated for deconditioning with physical therapy that the patient mostly refused. Most recent CT head showed resolving left convexity subacute on chronic subdural hematoma with local and regional mass effect and 8 mm midline shift from left to right without herniation. Also showed near complete resolution of the right subdural hematoma. He was discharged with his routine medications along with NaCl tablets and the below instructions. - Date & Time of H&P Date of H&P: 02/03/17 Time of H&P: 13:00 Discharge Exam - Head Exam Head Exam: NORMAL INSPECTION - Eye Exam Eye Exam: EOMI, Normal appearance Pupil Exam: NORMAL ACCOMODATION - ENT Exam ENT Exam: Mucous Membranes Moist, Normal Oropharynx - Neck Exam Neck exam: Normal Inspection - Respiratory Exam Respiratory Exam: Clear to PA & Lateral, NORMAL BREATHING PATTERN, UNREMARKABLE - Cardiovascular Exam Cardiovascular Exam: RRR, +S1, +S2 - GI/Abdominal Exam GI & Abdominal Exam: Normal Bowel Sounds. absent: Guarding, Pulsatile Mass, Rebound - Extremities Exam Extremities exam: normal capillary refill, normal inspection, pedal pulses present - Back Exam Back exam: NORMAL INSPECTION. absent: CVA tenderness (L), CVA tenderness (R) - Neurological Exam Neurological exam: Alert, CN II-XII Intact - Psychiatric Exam Psychiatric exam: Normal Affect, Normal Mood - Skin Skin Exam: Dry, Intact, Normal Color, Warm Discharge Plan - Follow Up Plan Condition: UNKNOWN Disposition: HOME/ ROUTINE Instructions: Hyponatremia (DC), Regular Diet (GEN) Additional Instructions: Patient to abstain from alcohol and other drugs. Patient to follow-up with a PMD, or if he does not have one, come to the [facility] clinic located on the ground floor. Patient to take all medications as prescribed, unless otherwise indicated. Patient should report to an Emergency Deparment should any new or worsening of symptoms occur. Thanks Domenic Monte PGY1 Dr. Lyles, Attending Physician Ref[place]: [facility] [place] [facility] [place] PCP,RANI [Primary Care Provider] - <Emma Lyles - Last Filed: 02/14/17 18:57> Provider - Provider Date of Admission: 01/18/17 23:33 Attending physician: Emma Lyles MD Primary care physician: NO PRIMARY CARE PROVIDER Hospital Course - Lab Results Lab Results: Micro Results 01/22/17 11:15 Blood-Venous Blood Culture - Final NO GROWTH AFTER 5 DAYS 01/22/17 11:15 Blood-Venous Gram Stain - Final TEST NOT PERFORMED 01/22/17 11:00 Blood-Venous Blood Culture - Final NO GROWTH AFTER 5 DAYS 01/22/17 11:00 Blood-Venous Gram Stain - Final TEST NOT PERFORMED 01/21/17 10:40 Blood Blood Culture - Final NO GROWTH AFTER 5 DAYS 01/21/17 10:40 Blood Gram Stain - Final TEST NOT PERFORMED 01/20/17 08:47 Stool C. difficile Antigen & Toxin A,B (M - Final 01/19/17 04:15 Naris MRSA Culture (Admit) - Final MRSA NOT DETECTED Most Recent Lab Values WBC 8.1 10^3/ul (4.5-11.0) 02/03/17 07:35 RBC 3.32 10^6/uL (3.5-6.1) L 02/03/17 07:35 Hgb 9.6 g/dL (14.0-18.0) L 02/03/17 07:35 Hct 29.3 % (42.0-52.0) L 02/03/17 07:35 MCV 88.3 fl (80.0-105.0) 02/03/17 07:35 MCH 28.9 pg (25.0-35.0) 02/03/17 07:35 MCHC 32.8 g/dl (31.0-37.0) 02/03/17 07:35 RDW 14.3 % (11.5-14.5) 02/03/17 07:35 Plt Count 534 10^3/uL (120.0-450.0) H 02/03/17 07:35 MPV 8.2 fl (7.0-11.0) 02/03/17 07:35 Gran % 72.3 % (50.0-68.0) H 02/03/17 07:35 Lymph % (Auto) 13.8 % (22.0-35.0) L 02/03/17 07:35 [place] % (Auto) 11.4 % (1.0-6.0) H 02/03/17 07:35 Eos % (Auto) 1.6 % (1.5-5.0) 02/03/17 07:35 Baso % (Auto) 0.9 % (0.0-3.0) 02/03/17 07:35 Gran # 5.86 (1.4-6.5) 02/03/17 07:35 Lymph # 1.1 (1.2-3.4) L 02/03/17 07:35 [place] # 0.9 (0.1-0.6) H 02/03/17 07:35 Eos # 0.1 (0.0-0.7) 02/03/17 07:35 Baso # 0.07 K/mm3 (0.0-2.0) 02/03/17 07:35 Neutrophils % (Manual) 72 % (50.0-70.0) H 01/24/17 07:00 Band Neutrophils % 2 % (0-2) 01/24/17 07:00 Lymphocytes % (Manual) 7 % (22.0-35.0) L 01/24/17 07:00 Monocytes % (Manual) 17 % (1.0-6.0) H 01/24/17 07:00 Eosinophils % (Manual) 2 % (0.0-3.0) 01/24/17 07:00 Toxic Granulation 1+ 01/24/17 07:00 Platelet Evaluation Normal (NORMAL) 01/24/17 07:00 Large Platelets Present 01/24/17 07:00 Giant Platelets Present 01/24/17 07:00 Hypochromasia 1+ 01/24/17 07:00 Anisocytosis (manual) 1+ 01/24/17 07:00 Tear Drop Cells Slight 01/24/17 07:00 PT 10.5 Seconds (9.9-11.8) 01/18/17 21:26 INR 0.97 (0.93-1.08) 01/18/17 21:26 APTT 29.5 Seconds (23.7-30.8) 01/18/17 21:26 pO2 50 mm/Hg (30-55) 01/22/17 11:00 VBG pH 7.47 (7.32-7.43) H 01/22/17 11:00 VBG pCO2 38.0 (40-60) L 01/22/17 11:00 VBG HCO3 27.7 mmol/l (21-28) 01/22/17 11:00 VBG O2 Sat (Calc) 92.6 % (40-65) H 01/22/17 11:00 VBG Base Excess 3.9 mmol/L (0.0-2.0) H 01/22/17 11:00 Sodium 132 mmol/L (132-148) 02/03/17 07:35 Potassium 3.9 mmol/L (3.6-5.0) 02/03/17 07:35 Chloride 95 mmol/L (98-107) L 02/03/17 07:35 Carbon Dioxide 28 mmol/L (21-33) 02/03/17 07:35 Anion Gap 13 (10-20) 02/03/17 07:35 BUN 11 mg/dL (7-21) 02/03/17 07:35 Creatinine 0.5 mg/dL (0.5-1.4) 02/03/17 07:35 Est GFR ( Amer) > 60 02/03/17 07:35 Est GFR (Non-Af Amer) > 60 02/03/17 07:35 Random Glucose 98 mg/dL (70-110) 02/03/17 07:35 Serum Osmolality 260 mosm/kg (271-296) L 01/20/17 09:38 Uric Acid 2.3 mg/dL (3.5-8.5) L 01/20/17 12:08 Calcium 9.2 mg/dL (8.4-10.5) 02/03/17 07:35 Phosphorus 2.9 mg/dL (2.5-4.5) 01/27/17 07:44 Magnesium 1.7 mg/dL (1.7-2.2) 01/30/17 06:45 Iron 53 ug/dL (45-180) 01/20/17 08:36 TIBC 294 ug/dL (261-462) 01/20/17 08:36 % Saturation 18 % (20-55) L 01/20/17 08:36 Ferritin 226.0 ng/mL 01/20/17 08:36 Total Bilirubin 0.6 mg/dL (0.2-1.3) 02/03/17 07:35 AST 63 U/L (17-59) H 02/03/17 07:35 ALT 57 U/L (7-56) H 02/03/17 07:35 Alkaline Phosphatase 88 U/L (38-126) 02/03/17 07:35 Troponin I < 0.01 ng/mL 02/02/17 10:00 Total Protein 7.2 g/dL (5.8-8.3) 02/03/17 07:35 Albumin 3.7 g/dL (3.0-4.8) 02/03/17 07:35 Globulin 3.5 gm/dL 02/03/17 07:35 Albumin/Globulin Ratio 1.1 (1.1-1.8) 02/03/17 07:35 Triglycerides 65 mg/dL (35-160) 01/19/17 08:10 Cholesterol 193 mg/dL (130-200) 01/19/17 08:10 LDL Cholesterol Direct 71 mg/dL (0-129) 01/19/17 08:10 HDL Cholesterol 109 mg/dL (29-60) H 01/19/17 08:10 Vitamin B12 675 pg/mL (239-931) 01/20/17 08:36 Folate > 20.0 ng/mL 01/20/17 08:36 Procalcitonin 0.11 NG/ML (0.19-0.49) L 01/22/17 08:52 TSH 3rd Generation 1.33 mIU/mL (0.46-4.68) 01/20/17 12:08 Urine Color Yellow (YELLOW) 01/24/17 08:00 Urine Appearance Clear (CLEAR) 01/24/17 08:00 Urine pH 8.5 (4.7-8.0) 01/24/17 08:00 Ur Specific [place] 1.015 (1.005-1.035) 01/24/17 08:00 Urine Protein Negative mg/dL (<30 mg/dL) 01/24/17 08:00 Urine Glucose (UA) Negative mg/dL (NEGATIVE) 01/24/17 08:00 Urine Ketones Negative mg/dL (NEGATIVE) 01/24/17 08:00 Urine Blood Negative (NEGATIVE) 01/24/17 08:00 Urine Nitrate Negative (NEGATIVE) 01/24/17 08:00 Urine Bilirubin Negative (NEGATIVE) 01/24/17 08:00 Urine Urobilinogen 2.0 E.U./dL (<1 E.U./dL) H 01/24/17 08:00 Ur Leukocyte Esterase Negative Gely/uL (NEGATIVE) 01/24/17 08:00 Urine Osmolality 190 mosm/kg (50-645) 01/29/17 14:35 Ur Random Creatinine 87 mg/dL 01/22/17 21:30 Ur Random Sodium 66 meq/L 01/29/17 14:35 Ur Random Potassium 30.3 meq/L 01/22/17 21:30 Urine Collection Time 24 HOURS 01/21/17 19:30 Urine Total Volume 2950 mL (800-1400) H 01/21/17 19:30 Stool Occult Blood Positive (NEGATIVE) H 01/20/17 07:30 Alcohol, Quantitative 264 mg/dL (0-10) H 01/18/17 21:26 HIV 1&2 Ag/Ab, 4th Gen Nonreactive (Nonreactive) 01/22/17 17:00 Attending/Attestation - Attestation I have personally seen and examined this patient.: Yes I have fully participated in the care of the patient.: Yes I have reviewed all pertinent clinical information, including history, physical exam and plan: Yes Notes (Text): I have seen and examined the patient with the resident. Agree with the above note with the following additions/ exceptions: Briefly this is 66 year old male with history of chronic alcohol abuse who presented s/p fall due to alcohol intoxication and developed SDH. Decision was made to manage him conservatively. NS and neuro recommended to repeat CT scan which will be done tomorrow. He does not have any focal deficits. He also has hyponatremia due to [employer] which has been improving. Continue sodium tabs. Patient is not going thru any symptoms of alcohol withdrawal. PT cleared the patient to go home. Upon discharge patient will follow up with [facility] clinic. Dr Emma Lyles
== END 2017-02-03 15:18 | disposition home or self-care (01) | DRG 533 ==
LOC: ED 20:37 → ERH 23:33 → CCU 01-19 03:22 → 5RSO 01-22 18:12
PROVIDERS: ADMIT Internal Medicine; ATTEND Hospitalist
DX: S06.5X9A Traumatic subdural hemorrhage with loss of consciousness of unspecified duration, initial encounter (principal); F10.231 Alcohol dependence with withdrawal delirium; R65.10 Systemic inflammatory response syndrome (SIRS) of non-infectious origin without acute organ dysfunction; E87.2 Acidosis; E22.2 Syndrome of inappropriate secretion of antidiuretic hormone; R56.9 Unspecified convulsions; E83.42 Hypomagnesemia; E87.6 Hypokalemia; J44.9 Chronic obstructive pulmonary disease, unspecified; W18.30XA Fall on same level, unspecified, initial encounter; E83.39 Other disorders of phosphorus metabolism; F41.9 Anxiety disorder, unspecified; F41.0 Panic disorder [episodic paroxysmal anxiety]; F17.210 Nicotine dependence, cigarettes, uncomplicated; Y90.8 Blood alcohol level of 240 mg/100 ml or more; K29.70 Gastritis, unspecified, without bleeding; K21.9 Gastro-esophageal reflux disease without esophagitis; I10 Essential (primary) hypertension; D64.9 Anemia, unspecified; R19.7 Diarrhea, unspecified; R19.5 Other fecal abnormalities; Z86.73 Personal history of transient ischemic attack (TIA), and cerebral infarction without residual deficits; Z90.49 Acquired absence of other specified parts of digestive tract; Y93.9 Activity, unspecified; Y92.9 Unspecified place or not applicable

== ENCOUNTER 2017-02-04 16:17 | Emergency (ER) | payer OTHER, MEDICAID ==
[2017-02-04 16:18] VITALS: BMI 23.6
[2017-02-04 16:32] VITALS: TEMP 98.2
--- NOTE | 2017-02-04 16:46 | ED PDOC ---
Arrival/HPI - General Chief Complaint: Altered Mental Status Time Seen by Provider: 02/04/17 16:32 Historian: Family, EMS EM Caveat: Uncooperative - History of Present Illness Narrative History of Present Illness (Text): 02/04/17 16:44 A Jordanian speaking, 66 year old male whose past medical history includes gastritis, syncope, nicotine dependence, ETOH abuse, anxiety, depression, CVA, and panic disorder, presents to the emergency department via EMS. The patient's family called stating that the patient has been confused, and started pulling on items at home. At bedside, information resources manager service in Jordanian was used, but patient refused to respond, repeatedly said "please, help me". The patient has presented to the emergency department several times for ETOH intoxication. He was recently admitted 01/18/17 and discharged yesterday for a fall. On the head CT from his last visit 01/18/2017, a subdural hemorrhage was found. No neurosurgical intervention, patient was also treated for SIADH while admitted. HPI/ROS is limited, due to patient's condition. Time/Duration: Prior to Arrival Symptom Onset: Sudden Symptom Course: Unchanged Activities at Onset: Rest, Light Context: Home Past Medical History - Provider Review Nursing Documentation Reviewed: Yes - Infectious Disease Hx of Infectious Diseases: None - Tetanus Immunization Tetanus Immunization: Unknown - Past Medical History Past Medical History: Unable to Obtain - Cardiac Hx Cardiac Disorders: Yes Hx Hypertension: Yes - Pulmonary Hx Respiratory Disorders: Yes Hx Chronic Obstructive Pulmonary Disease (COPD): Yes - Neurological Hx Neurological Disorder: Yes HX Cerebrovascular Accident: Yes - HEENT Hx HEENT Disorder: Yes (nasal deformity boxing injury) - Renal Hx Renal Disorder: No - Endocrine/Metabolic Hx Endocrine Disorders: No - Hematological/Oncological Hx Blood Disorders: No Hx Cancer: No - Integumentary Hx Dermatological Disorder: Yes - Musculoskeletal/Rheumatological Hx Musculoskeletal Disorders: Yes Hx Falls: Yes - Gastrointestinal Hx Gastrointestinal Disorders: Yes Hx Gastroesophageal Reflux: Yes - Genitourinary/Gynecological Hx Genitourinary Disorders: No Hx Sexually Transmitted Diseases: No - Psychiatric Hx Psychophysiologic Disorder: Yes Hx Anxiety: Yes Hx Bipolar Disorder: No Hx Depression: Yes Hx Panic Disorder: Yes Hx Psychosis: Yes Hx Schizophrenia: No Hx Substance Use: No Other/Comment: 1.5 liters vodka daily, suicide attempt 40 yrs ago - Past Surgical History Past Surgical History: Unable to Obtain - Surgical History Hx Appendectomy: Yes Hx Cholecystectomy: Yes Hx Orthopedic Surgery: Yes Other/Comment: left femur metal implant, fell off roof of house, sx to left elbow, left hip, left arm - Anesthesia Hx Anesthesia: Yes Hx Anesthesia Reactions: No Hx Malignant Hyperthermia: No - Suicidal Assessment Feels Threatened In Home Enviroment: No Family/Social History - Physician Review Nursing Documentation Reviewed: Yes Family/Social History: No Known Family HX Smoking Status: Heavy Smoker > 10 Cigarettes Daily Hx Alcohol Use: Yes Hx Substance Use: No Hx Substance Use Treatment: Yes Allergies/Home Meds Allergies/Adverse Reactions: Allergies No Known Allergies Allergy (Verified 02/04/17 16:31) Home Medications: Home Meds Medication Instructions Recorded Confirmed Unobtainable 02/04/17 02/04/17 Review of Systems - Review of Systems Systems not reviewed;Unavailable: Altered Mental Status (Patient not answering questions.) Physical Exam - Physical Exam Narrative Physical Exam (Text): Constitutional: No acute distress. Head: Normocephalic. Atraumatic. Eyes: PERRL. ENT: Moist mucous membranes. Neck: Supple. Cardiovascular: Mildly tachycardic. Chest: No tenderness. Respiratory: Clear to auscultation bilaterally. GI: Soft. Nontender. Nondistended. Back: No CVA tenderness. Musculoskeletal: No tenderness or swelling of extremities. No midline tenderness to neck/back, Full ROM x4. Skin: No rash. Neurologic: Awake and alert, no focal deficit. Motor 5/5 x4. Moving all extremities spontaneously. Vital Signs Reviewed: Yes Vital Signs Temp Pulse Resp BP Pulse Ox 02/04/17 21:06 109 H 18 121/81 95 02/04/17 20:20 109 H 18 145/118 H 94 L 02/04/17 19:55 110 H 18 157/123 H 92 L 02/04/17 19:05 109 H 18 98/68 L 97 02/04/17 16:31 98.2 F 110 H 16 153/101 H 96 Temperature: Afebrile Blood Pressure: Hypertensive Pulse: Tachycardic Respiratory Rate: Normal Appearance: Positive for: Non-Toxic Pain Distress: None Medical Decision Making ED Course and Treatment: 02/04/17 16:50 Impression: A 65 year old Jordanian speaking male, presents to the emergency department after family called EMS. The family states that the patient has been confused and pulling on items at home. Plan: -- Head and Abdomen/Pelvis CT -- EKG -- Chest X-ray -- Urinalysis -- Labs -- Reassess and disposition Prior Visits: Notes and results from previous visits were reviewed. On 01/18/2017 patient was brought in via EMS. As per family, the patient was brought in for further evaluation after a fall due to ETOH intoxication. Patient was admitted. Progress Notes: CT HEAD WITHOUT CONTRAST Dictator : Felipe Bray Report Date : 02/04/2017 19:01:05 IMPRESSION: Interval mild increase in the size of the acute on subacute/ chronic subdural hematoma along the left convexity since the previous exam. Interval increase in the mass effect on the left lateral ventricle and [id number] midline shift since the previous study. The possibility of subfalcine herniation cannot be excluded. CT Abdomen and Pelvis With Intravenous Contrast IMPRESSION: Extremely limited by streak, motion and paucity of fat; emphysema with scarring at the lung bases; interval cholecystectomy, no acute solid visceral abnormality; dilated small bowel ileus versus early obstruction; probable upper abdominal adenopathy; new T12 compression fracture Dictated and Authenticated by: Ana Wolfe MD Discussed case with Neurosurgery security solutions engineer Dr. Mcdermott who recommends head of bed at 30 degrees, ICU admission, sodium correction. Discussed case with Dr. Yap evening sitter who consulted with Neurology Dr. Nayan Mays. Dr. Yap states that Dr. Mays recommends consultation with interventional neuroradiologist Dr. Matos at [facility]. Dr. Yap spoke with Dr. Matos and states that he would like to perform a meningeal artery embolization at [facility] but recommends a efra hole to be performed initially. I spoke with Dr. Javier who accepted the patient for neurosurgical consultation under Dr. Patel's service. Dr. Ball ED attending at [facility] will accept patient to ICU. [facility] will transport patient. - Lab Interpretations Lab Results: 02/04/17 17:15 02/04/17 17:15 Lab Results 02/04/17 17:15: Alcohol, Quantitative < 10 02/04/17 17:15: Sodium 120 L, Potassium 3.9, Chloride 83 L, Carbon Dioxide 26, Anion Gap 15, BUN 13, Creatinine 0.5, Est GFR ( Amer) > 60, Est GFR (Non- Af Amer) > 60, Random Glucose 122 H, Calcium 9.4, Total Bilirubin 1.2, AST 74 H , ALT 58 H, Alkaline Phosphatase 93, Total Creatine Kinase 153, Troponin I < 0.01, Total Protein 7.2, Albumin 3.9, Globulin 3.4, Albumin/Globulin Ratio 1.1 02/04/17 17:15: PT 12.8 H, INR 1.19 H, APTT 34.2 H 02/04/17 17:15: WBC 14.0 H D, RBC 3.25 L, Hgb 9.3 L, Hct 27.6 L, MCV 84.9 D, MCH 28.6, MCHC 33.7, RDW 13.9, Plt Count 511 H, MPV 8.4, Gran % 77.9 H, Lymph % (Auto) 8.3 L, Taliaferro % (Auto) 13.2 H, Eos % (Auto) 0.2 L, Baso % (Auto) 0.4, Gran # 10.88 H, Lymph # 1.2, Taliaferro # 1.9 H, Eos # 0.0, Baso # 0.05 I have reviewed the lab results: Yes - RAD Interpretation Radiology Orders: 02/04/17 17:28 CHEST PORTABLE [RAD] Stat 02/04/17 17:29 HEAD W/O CONTRAST [CT] Stat 02/04/17 18:27 ABD & PELVIS IV CONTRAST ONLY [CT] Stat - EKG Interpretation Interpreted by ED Physician: Yes Type: 12 lead EKG - Medication Orders Current Medication Orders: Discontinued Medications Etomidate (Amidate) 15 mg IVP STAT STA Stop: 02/04/17 18:27 Last Admin: 02/04/17 18:30 Dose: 15 mg IVP Administration Document 02/04/17 18:30 SRE (Rec: 02/04/17 19:09 SRE [id number]) Charges for Administration # of IVP Administrations 1 Etomidate (Amidate) Confirm Administered Dose 20 mg IV .STK-MED ONE Stop: 02/04/17 18:34 Last Admin: 02/04/17 19:22 Dose: Iohexol (Omnipaque 350 100 Ml) Confirm Administered Dose 350 mg .ROUTE .STK-MED ONE Stop: 02/04/17 18:32 Lorazepam (Ativan) 1 mg IVP ONCE ONE PRN Reason: Protocol Stop: 02/04/17 17:48 Last Admin: 02/04/17 18:00 Dose: 1 mg IVP Administration Document 02/04/17 18:00 AD (Rec: 02/04/17 18:00 AD [facility] [id number] Charges for Administration # of IVP Administrations 1 - Scribe Statement The provider has reviewed the documentation as recorded by the Scribe Kamila Holman Provider Scribe Attestation: All medical record entries made by the Scribe were at my direction and personally dictated by me. I have reviewed the chart and agree that the record accurately reflects my personal performance of the history, physical exam, medical decision making, and the department course for this patient. I have also personally directed, reviewed, and agree with the discharge instructions and disposition. Disposition/Present on Arrival - Present on Arrival Any Indicators Present on Arrival: No History of DVT/PE: No History of Uncontrolled Diabetes: No Urinary Catheter: No History of Decub. Ulcer: No History Surgical Site Infection Following: None - Disposition Have Diagnosis and Disposition been Completed?: Yes Diagnosis: Acute on chronic intracranial subdural hematoma, Hyponatremia Disposition: Transfer [facility] Disposition Time: 19:08 Patient Plan: Transfer To Condition: CRITICAL Referrals: PCP,NO [Primary Care Provider] - Follow up with primary Forms: [email or web address] (Japanese)
[2017-02-04 17:54] LABS: BASO # 0.05 K/mm3 (0.0-2.0); BASO % 0.4 % (0.0-3.0); EOS % 0.2 % (1.5-5.0); GRAN # 10.88 (1.4-6.5); GRAN % 77.9 % (50.0-68.0); HEMATOCRIT 27.6 % (42.0-52.0); LYMPH # 1.2 (1.2-3.4); LYMPH % 8.3 % (22.0-35.0); MEAN CELL VOLUME 84.9 fl (80.0-105.0); MEAN CORPUSCULAR HEMOGLOBIN 28.6 pg (25.0-35.0); MEAN CORPUSCULAR HGB CONC 33.7 g/dl (31.0-37.0); MEAN PLATELET VOLUME 8.4 fl (7.0-11.0); MONO # 1.9 (0.1-0.6); MONO % 13.2 % (1.0-6.0); RED CELL DISTRIBUTION WIDTH 13.9 % (11.5-14.5)
[2017-02-04 18:00] LABS: INR 1.19 (0.93-1.08); PARTIAL THROMBOPLASTIN TIME 34.2 Seconds (23.7-30.8)
[2017-02-04 18:07] LABS: ALB/GLOB RATIO 1.1 (1.1-1.8); ALKALINE PHOSPHATASE 93 U/L (38-126); ALT/SGPT 58 U/L (7-56); AST/SGOT 74 U/L (17-59); BILIRUBIN,TOTAL 1.2 mg/dL (0.2-1.3); BLOOD UREA NITROGEN 13 mg/dL (7-21); CALCIUM 9.4 mg/dL (8.4-10.5); CARBON DIOXIDE 26 mmol/L (21-33); CHLORIDE 83 mmol/L (98-107); GFR AFRICAN-AMERICAN > 60; GLUCOSE,RANDOM 122 mg/dL (70-110); POTASSIUM 3.9 mmol/L (3.6-5.0); TOTAL PROTEIN 7.2 g/dL (5.8-8.3)
[2017-02-04 18:10] LABS: SODIUM 120 mmol/L (132-148)
[2017-02-04 18:22] LABS: TROPONIN I < 0.01 ng/mL
[2017-02-04] MEDS ORDERED: Etomidate 20 mg/10ml Inj IVP STA (18:26)
[2017-02-04] MEDS ORDERED: Iohexol 350 MG/100 ML VIAL ONE (18:31)
[2017-02-04] MEDS ORDERED: Etomidate 20 mg/10ml Inj IV ONE (18:33)
--- NOTE | 2017-02-04 19:02 | CT ---
PROCEDURE: CT HEAD WITHOUT CONTRAST. HISTORY: ams, h/o ICH COMPARISON: Comparison is made to 02/03/2017 TECHNIQUE: Axial computed tomography images were obtained through the head/brain without intravenous contrast. Radiation dose: Total exam DLP = 847.49 mGy-cm. This CT exam was performed using one or more of the following dose reduction techniques: Automated exposure control, adjustment of the mA and/or kV according to patient size, and/or use of iterative reconstruction technique. FINDINGS: HEMORRHAGE: There oval mild increase in the thickness of the previously seen acute on subacute or chronic left convexity subdural hematoma since the previous exam. The maximum thickness in the current study is 12.3 millimeter. Interval increase BRAIN: There is interval increase in the mass effect on the left lateral ventricle. There is also interval increase in the [id number] midline shift measures approximately 12 millimeter in the current study. There is effacement of the left brain sulci due to mass effect. Again seen is lacunar old infarct at the right basal ganglia. VENTRICLES: The left ventricle appears smaller compared to the previous exam. CALVARIUM: Unremarkable. PARANASAL SINUSES: Unremarkable as visualized. No significant inflammatory changes. MASTOID AIR CELLS: Unremarkable as visualized. No inflammatory changes. OTHER FINDINGS: Nasal bone fracture and deviation to the left is noted P IMPRESSION: Interval mild increase in the size of the acute on subacute/ chronic subdural hematoma along the left convexity since the previous exam. Interval increase in the mass effect on the left lateral ventricle and [id number] midline shift since the previous study. The possibility of subfalcine herniation cannot be excluded. Otherwise no significant interval change.
[2017-02-04 21:06] VITALS: O2SAT 95
--- NOTE | 2017-02-04 21:30 | CT ---
EXAM: CT Abdomen and Pelvis With Intravenous Contrast EXAM DATE/TIME: 02/04/2017 6:27 PM CLINICAL HISTORY: 66 years old, male; Pain; Abdominal pain; Acute; Additional info: Distended abdomen TECHNIQUE: Axial computed tomography images of the abdomen and pelvis with intravenous contrast. All CT scans at this facility use one or more dose reduction techniques, viz.: automated exposure control; ma/kV adjustment per patient size (including targeted exams where dose is matched to indication; i.e. head); or iterative reconstruction technique. CONTRAST: 100 mL of omni 350 administered intravenously. COMPARISON: CT - ABD PELVIS W/O PO OR IV CONT 08/31/2015 4:52:27 PM FINDINGS: Artifacts: Motion artifact degrades image quality. Streak artifact degrades image quality. Lower thorax: Lung bases are hyperinflated. There are patchy interstitial opacities greatest in the left lower lobe. There is scarring at the lung bases Heart size is at the upper limits of normal. There are coronary calcifications. ABDOMEN: Liver: There is a small granuloma in the dome of the liver.There is fatty infiltration of the liver. Gallbladder and bile ducts: Gallbladder is surgically absent. Common duct is prominent. Pancreas: unremarkable Spleen: unremarkable Adrenals: unremarkable Kidneys and ureters: Right kidney is unremarkable. There is a nonobstructing left renal stone. There is a left renal cyst areasThere is no pelvocaliectasis or ureterectasis. Stomach and bowel: unremarkable Appendix: Stomach is partially distended with an air-fluid level. Rotation is normal. Streak and motion limits evaluation of the bowel. There are multiple mildly dilated small bowel loops in the anterior abdomen. Terminal ileum is unremarkable. Appendix is not identified. Streak and motion limits evaluation of the colon. PELVIS: Bladder: Bladder is partially distended. Reproductive: Seminal vesicles and prostate are obscured by streak artifact from hardware in the left hip ABDOMEN and PELVIS: Intraperitoneal space: There is no free air. Bones/joints: Bony structures are osteopenic. There are degenerative changes in the osseus structures.There are postsurgical changes in the left hip with intramedullary rods. There are old left pelvic fractures. There is compression fracture at T12. Soft tissues: unremarkable Vasculature: There are calcifications in the aortic wall. There is an IVC filter. Lymph nodes: There are there is adenopathy in the abdomen and region of the haider hepatis. IMPRESSION: Extremely limited by streak, motion and paucity of fat; emphysema with scarring at the lung bases; interval cholecystectomy, no acute solid visceral abnormality; dilated small bowel ileus versus early obstruction; probable upper abdominal adenopathy; new T12 compression fracture
[2017-02-04 22:59] VITALS: BP 148/79; PULSE 123; RESP 16
--- NOTE | 2017-02-05 01:28 | CP.PCM.CON ---
History of Present Illness - History of Present Illness History of Present Illness: late entry Reason for Evaluation: Altered mental status HPI: 66 y/o male with a PMhx Etoh abuse, Etoh withdrawal, cerebral salt wasting and recently Dx'ed SDH was brought to the ED via EMS. The patient was recently admitted from 01/18/17 and remained in the hospital until yesterday when he was cleared for discharge home. His family noticed that he was confused and pulling at things around the house and knocking them down. He was not acting appropriately, nor was he responding to their questions appropriately so they called EMS. Upon my arrival to see the patient he was in bed in 4 point restraints. The patient was awake and alert but would not follow my commands. He was unable to offer any history and kept repeating the word "please." He appeared to be confused and would have periods of agitation attempting to climb out of bed as well. PMHx: Left subdural hematoma Dx'ed 01/18/17 Etoh abuse Etoh withdrawal Nicotine dependence cerebral salt wasting/SIADH gastritis PShx: h/p CCx, Appendectomy Allergies: NKDA Fam Hx: unable to obtain Soc Hx: 1ppd for >20yrs; daily etoh use; no illicit drug substances as per medical record Meds: Keppra 500mg po bid Neurontin 300mg po tid NaCl tabs Vit B1 Thiamine daily Folic Acid Zinc 220mg po daily Review of Systems - Review of Systems Review of Systems: Unable to obtain due to patient's altered mentation Past Patient History - Infectious Disease Hx of Infectious Diseases: None - Tetanus Immunizations Tetanus Immunization: Unknown - Past Medical History & Family History Past Medical History?: Yes - Past Social History Smoking Status: Heavy Smoker > 10 Cigarettes Daily - CARDIAC Hx Cardiac Disorders: Yes Hx Hypertension: Yes - PULMONARY Hx Respiratory Disorders: Yes Hx Chronic Obstructive Pulmonary Disease (COPD): Yes - NEUROLOGICAL Hx Neurological Disorder: Yes HX Cerebrovascular Accident: Yes - HEENT Hx HEENT Problems: Yes (nasal deformity boxing injury) - RENAL Hx Chronic Kidney Disease: No - ENDOCRINE/METABOLIC Hx Endocrine Disorders: No - HEMATOLOGICAL/ONCOLOGICAL Hx Blood Disorders: No Hx Cancer: No - INTEGUMENTARY Hx Dermatological Problems: Yes - MUSCULOSKELETAL/RHEUMATOLOGICAL Hx Musculoskeletal Disorders: Yes Hx Falls: Yes - GASTROINTESTINAL Hx Gastrointestinal Disorders: Yes Hx Gastroesophageal Reflux: Yes - GENITOURINARY/GYNECOLOGICAL Hx Genitourinary Disorders: No Hx Sexually Transmitted Disorders: No - PSYCHIATRIC Hx Psychophysiologic Disorder: Yes Hx Anxiety: Yes Hx Bipolar Disorder: No Hx Depression: Yes Hx Panic Symptoms: Yes Hx Psychosis: Yes Hx Schizophrenia: No Hx Substance Use: No Other/Comment: 1.5 liters vodka daily, suicide attempt 40 yrs ago - SURGICAL HISTORY Hx Appendectomy: Yes Hx Cholecystectomy: Yes Hx Orthopedic Surgery: Yes Other/Comment: left femur metal implant, fell off roof of house, sx to left elbow, left hip, left arm - ANESTHESIA Hx Anesthesia: Yes Hx Anesthesia Reactions: No Hx Malignant Hyperthermia: No Meds Allergies/Adverse Reactions: Allergies Allergy/AdvReac Type Severity Reaction Status Date / Time No Known Allergies Allergy Verified 02/04/17 16:31 Physical Exam - Constitutional Appears: Agitated, Confused - Head Exam Head Exam: ATRAUMATIC, NORMOCEPHALIC - Eye Exam Eye Exam: EOMI, Normal appearance - ENT Exam ENT Exam: Mucous Membranes Moist, Normal Exam - Neck Exam Neck exam: Positive for: Normal Inspection - Respiratory Exam Respiratory Exam: Clear to Auscultation Bilateral, NORMAL BREATHING PATTERN. absent: Rales, Rhonchi, Wheezes - Cardiovascular Exam Cardiovascular Exam: REGULAR RHYTHM, +S1, +S2 - GI/Abdominal Exam GI & Abdominal Exam: Soft. absent: Guarding, Rebound, Tenderness - Rectal Exam Rectal Exam: Deferred - Extremities Exam Extremities exam: Positive for: normal inspection. Negative for: calf tenderness - Neurological Exam Neurological exam: Alert, Altered Additional comments: spontaneously moving all extremities; unable to elicit motor strength or cranial nerves as the patient is unable to follow commands or participate in the neurological exam. - Psychiatric Exam Psychiatric exam: Agitated - Skin Skin Exam: Dry, Intact, Normal Color, Warm Results - Vital Signs Recent Vital Signs: Last Vital Signs Temp 98.2 F 02/04/17 16:31 Pulse 123 H 02/04/17 22:59 Resp 16 02/04/17 22:59 BP 148/79 02/04/17 22:59 Pulse Ox 95 02/04/17 22:59 - Labs Result Diagrams: 02/04/17 17:15 02/04/17 17:15 Labs: Laboratory Results - last 24 hr 02/04/17 02/04/17 02/04/17 17:15 17:15 17:15 WBC 14.0 H D RBC 3.25 L Hgb 9.3 L Hct 27.6 L MCV 84.9 D MCH 28.6 MCHC 33.7 RDW 13.9 Plt Count 511 H MPV 8.4 Gran % 77.9 H Lymph % (Auto) 8.3 L Overton % (Auto) 13.2 H Eos % (Auto) 0.2 L Baso % (Auto) 0.4 Gran # 10.88 H Lymph # 1.2 [place]ton # 1.9 H Eos # 0.0 Baso # 0.05 PT 12.8 H INR 1.19 H APTT 34.2 H Sodium 120 L Potassium 3.9 Chloride 83 L Carbon Dioxide 26 Anion Gap 15 BUN 13 Creatinine 0.5 Est GFR ( Amer) > 60 Est GFR (Non-Af Amer) > 60 Random Glucose 122 H Calcium 9.4 Total Bilirubin 1.2 AST 74 H ALT 58 H Alkaline Phosphatase 93 Total Creatine Kinase 153 Troponin I < 0.01 Total Protein 7.2 Albumin 3.9 Globulin 3.4 Albumin/Globulin Ratio 1.1 Alcohol, Quantitative 02/04/17 17:15 WBC RBC Hgb Hct MCV MCH MCHC RDW Plt Count MPV Gran % Lymph % (Auto) Overton % (Auto) Eos % (Auto) Baso % (Auto) Gran # Lymph # Overton # Eos # Baso # PT INR APTT Sodium Potassium Chloride Carbon Dioxide Anion Gap BUN Creatinine Est GFR ( Amer) Est GFR (Non-Af Amer) Random Glucose Calcium Total Bilirubin AST ALT Alkaline Phosphatase Total Creatine Kinase Troponin I Total Protein Albumin Globulin Albumin/Globulin Ratio Alcohol, Quantitative < 10 - Imaging and Cardiology CT scan - head Status: Image reviewed by me, Report reviewed by me (increased Left subdural acute on subacute/chronic hemorrhage. Midline shift of 12mm. CT Abd/pelvis showing a new T12 compression fracture.) Assessment & Plan - Assessment and Plan (Free Text) Assessment: 66 y/o male with a PMHx significant for Etoh abuse, returns to the ED 1 day after being discharge for altered mentation and confusion. The patient had a CT of the head yesterday which was compared with the prior [address] during that admission which showed stabilization of the left sided hematoma with a midline shift remaining of 8mm. The patient has now returned within 24hrs showing signs of altered mentation as well as repeat imaging showing a worsening of his midline shift to 12mm, worsened acute on subacute/chronic hemorrhage and the inability to clearly distinguish whether or not there is subfalcine herniation. Furthermore the patient has become hyponatremic acutely likely due to cerebral salt wasting (Na 120 today from 132 yesterday) secondary to the bleed. I have discussed the case with Neurology (Dr. Juana Mays) who agrees with me that the patient requires an urgent/emergent evacuation of this SDH. Case was also discussed with Dr. Matos (Neurointerventionalist) who stated that he would be more than happy to evaluate the patient for possibly embolizing the middle meningeal artery if that was the culprit, however the patient would first need correction of his electrolytes as well as evacuation. Given that his morbidity/mortality may rise significantly if not addressed emergently/urgently , I am refusing to admit this patient on my hospitalist service and recommending he be transferred to a facility where he can be evaluated by a neurosurgeon within the next 4-6 hours. Case was subsequently discussed with Dr. Mcdermott of Neurosurgery who stated that he reviewed the film; the patient required correction of his sodium and would not come to see the patient until the following morning. Discussed the case for transfer with Dr. Crespo in the ED after the case was discussed with multiple physicians.
--- NOTE | 2017-02-05 07:55 | RAD ---
HISTORY: ams COMPARISON: Portable chest 02/03/2017. FINDINGS: LUNGS: Hyperinflated lungs are again appreciated with limited biapical fibrosis appreciated and possible COPD. No acute infiltrate bilaterally. PLEURA: No significant pleural effusion identified, no pneumothorax apparent. CARDIOVASCULAR: Normal. OSSEOUS STRUCTURES: No significant abnormalities. VISUALIZED UPPER ABDOMEN: Normal. OTHER FINDINGS: Multiple bowel loops are incidentally captured in the visualized upper abdomen distended with gas. Free intrarenal gas is not definitively shown but is difficult to completely exclude. Surgical clips are also identified at the right upper quadrant abdomen. Please see separate abdomen pelvis CT also performed 02/04/2017. IMPRESSION: No significant interval change in hyper inflation and limited biapical fibrosis, possible COPD. Marked distention of bowel loops with gas in the abdomen is appreciated. Free air is not excluded. Please see separate abdomen pelvis CT examination also performed 02/03/2017.
--- NOTE | 2017-02-07 13:30 | CARD ---
APPROVED REPORT EKG Measurement Heart [id number] <Conclusion> Sinus rhythm with premature atrial complexes with aberrant conduction Voltage criteria for left ventricular hypertrophy Prolonged QT Abnormal ECG
== END 2017-02-05 | disposition short-term general hospital (02) ==
LOC: ED 16:17
DX: I62.01 Nontraumatic acute subdural hemorrhage (principal); I62.03 Nontraumatic chronic subdural hemorrhage; E87.1 Hypo-osmolality and hyponatremia; F17.210 Nicotine dependence, cigarettes, uncomplicated; I10 Essential (primary) hypertension
CPT/HCPCS: 70450; 71010; 74177; 80053; 80320; 82550; 84484; 85025; 85610; 85730; 87040; 96374; 96375; 99285; J2060; Q9967

== ENCOUNTER 2018-09-25 22:58 | Inpatient (IN) | payer MEDICAID, OTHER ==
[2018-09-25 23:43] VITALS: BMI 21.9
[2018-09-25] MEDS ORDERED: Sodium Chloride 0.9% 1,000 ML IV STA (23:47)
[2018-09-25 23:58] LABS: BASO # 0.02 K/mm3 (0.0-2.0); BASO % 0.3 % (0.0-3.0); EOS # 0.1 (0.0-0.7); EOS % 0.7 % (1.5-5.0); HEMOGLOBIN 11.8 g/dL (14.0-18.0); LYMPH # 1.5 (1.2-3.4); LYMPH % 21.2 % (22.0-35.0); MEAN CELL VOLUME 92.1 fl (80.0-105.0); MEAN CORPUSCULAR HEMOGLOBIN 31.1 pg (25.0-35.0); MEAN CORPUSCULAR HGB CONC 33.8 g/dl (31.0-37.0); MEAN PLATELET VOLUME 9.7 fl (7.0-11.0); MONO # 1.5 (0.1-0.6); MONO % 21.5 % (1.0-6.0); PLATELET COUNT 256 10^3/uL (120.0-450.0); RBC 3.79 10^6/uL (3.5-6.1); WHITE BLOOD COUNT 6.9 10^3/uL (4.5-11.0)
[2018-09-26 00:10] LABS: INR 1.15; PARTIAL THROMBOPLASTIN TIME 29.1 Seconds (26.9-38.3); PROTHROMBIN TIME 12.8 SECONDS (9.4-12.5)
--- NOTE | 2018-09-26 00:15 | ED PDOC ---
Arrival/HPI - General Chief Complaint: Abdominal Pain Time Seen by Provider: 09/25/18 23:04 Historian: Patient - History of Present Illness Narrative History of Present Illness (Text): 09/26/18 00:29 A 67 year old male, whose past medical history includes alcohol abuse, presents to the emergency department complaining of abdominal pain for the past few days. Patient reports associated vomiting and states his last alcohol drink was 5 days ago. Patient denies any fever, chills, shortness of breath, chest pain, diarrhea, nausea, urinary symptoms, back pain, neck pain, headache, dizziness, or any other complaints. No PMD Time/Duration: Other (few days) Symptom Onset: Gradual Symptom Course: Unchanged Activities at Onset: Light Past Medical History - Provider Review Nursing Documentation Reviewed: Yes - Infectious Disease Hx of Infectious Diseases: None - Tetanus Immunization Tetanus Immunization: Unknown - Past Medical History Past Medical History: Unable to Obtain - Cardiac Hx Cardiac Disorders: Yes Hx Hypertension: Yes - Pulmonary Hx Respiratory Disorders: Yes Hx Chronic Obstructive Pulmonary Disease (COPD): Yes - Neurological Hx Neurological Disorder: Yes HX Cerebrovascular Accident: Yes - HEENT Hx HEENT Disorder: Yes (nasal deformity boxing injury) - Renal Hx Renal Disorder: No - Endocrine/Metabolic Hx Endocrine Disorders: No - Hematological/Oncological Hx Blood Disorders: No Hx Cancer: No - Integumentary Hx Dermatological Disorder: Yes - Musculoskeletal/Rheumatological Hx Musculoskeletal Disorders: Yes Hx Falls: Yes - Gastrointestinal Hx Gastrointestinal Disorders: Yes Hx Gastroesophageal Reflux: Yes - Genitourinary/Gynecological Hx Genitourinary Disorders: No Hx Sexually Transmitted Diseases: No - Psychiatric Hx Psychophysiologic Disorder: Yes Hx Anxiety: Yes Hx Bipolar Disorder: No Hx Depression: Yes Hx Panic Disorder: Yes Hx Psychosis: Yes Hx Schizophrenia: No Hx Substance Use: No Other/Comment: 1.5 liters vodka daily, suicide attempt 40 yrs ago - Past Surgical History Past Surgical History: Unable to Obtain - Surgical History Hx Appendectomy: Yes Hx Cholecystectomy: Yes Hx Orthopedic Surgery: Yes Other/Comment: left femur metal implant, fell off roof of house, sx to left elbow, left hip, left arm - Anesthesia Hx Anesthesia: Yes Hx Anesthesia Reactions: No Hx Malignant Hyperthermia: No - Suicidal Assessment Feels Threatened In Home Enviroment: No Family/Social History - Physician Review Nursing Documentation Reviewed: Yes Family/Social History: No Known Family HX Smoking Status: Heavy Smoker > 10 Cigarettes Daily Hx Alcohol Use: Yes Hx Substance Use: No Hx Substance Use Treatment: Yes Allergies/Home Meds Allergies/Adverse Reactions: Allergies No Known Allergies Allergy (Verified 02/04/17 16:31) Home Medications: Home Meds Medication Instructions Recorded Confirmed Unobtainable 01/15/17 01/15/17 Unobtainable 02/04/17 02/04/17 Review of Systems - Review of Systems Constitutional: absent: Fevers, Other (chills) Respiratory: absent: SOB Cardiovascular: absent: Chest Pain Gastrointestinal: Abdominal Pain, Vomiting. absent: Nausea Genitourinary Male: absent: Urinary Output Changes Musculoskeletal: absent: Back Pain, Neck Pain Neurological: absent: Headache, Dizziness Physical Exam Vital Signs Reviewed: Yes Vital Signs Temp Pulse Resp BP Pulse Ox 09/25/18 23:13 97.7 F 93 H 18 125/86 97 Temperature: Afebrile Blood Pressure: Normal Pulse: Tachycardic Respiratory Rate: Normal Appearance: Positive for: Ill-Appearing, Unkept Mental Status: Positive for: Alert and Oriented X 3 - Systems Exam Head: Present: Atraumatic, Normocephalic Pupils: Present: PERRL Extroacular Muscles: Present: EOMI Conjunctiva: Present: Normal Mouth: Present: Dry Respiratory/Chest: Present: Wheezes Cardiovascular: Present: Tachycardic Abdomen: Present: Tenderness (generalized abdominal tenderness) Neurological: Present: GCS=15, CN II-XII Intact, Speech Normal Skin: Present: Warm, Dry, Normal Color. No: Rashes Psychiatric: Present: Alert, Oriented x 3, Normal Insight, Normal Concentration Medical Decision Making ED Course and Treatment: 09/26/18 00:10 Impression: 67 year old male who presents to the emergency room complaining of abdominal pain. Plan: -- CT of abdomen and pelvis -- Labs -- CBC -- Toradol -- Zofran -- IV fluids -- Urinalysis -- Reassess and disposition Prior Visits: Notes and results from previous visits were reviewed. Progress Notes: 09/26/18 01:[address] Srivastava who accepts patient for admission. - RAD Interpretation Radiology Orders: 09/25/18 23:54 ABDOMEN & PELVIS [ABD & PELVIS IV CONTRAST ONLY] [CT] Stat - Medication Orders Current Medication Orders: Sodium Chloride (Sodium Chloride 0.9%) 1,000 mls @ 999 mls/hr IV .Q1H1M STA Stop: 09/26/18 00:47 Discontinued Medications Ketorolac Tromethamine (Toradol) 30 mg IVP STAT STA Stop: 09/25/18 23:49 Ondansetron HCl (Zofran Inj) 4 mg IVP STAT STA Stop: 09/25/18 23:48 - Scribe Statement The provider has reviewed the documentation as recorded by the Nadiya Zarate All medical record entries made by the Khloeibadán were at my direction and personally dictated by me. I have reviewed the chart and agree that the record accurately reflects my personal performance of the history, physical exam, medical decision making, and the department course for this patient. I have also personally directed, reviewed, and agree with the discharge instructions and disposition. Disposition/Present on Arrival - Present on Arrival History of DVT/PE: No History of Uncontrolled Diabetes: No Urinary Catheter: No History of Decub. Ulcer: No History Surgical Site Infection Following: None - Disposition Forms: [facility] (Icelandic)
[2018-09-26 00:39] LABS: ALB/GLOB RATIO 1.1 (1.1-1.8); ALBUMIN 3.4 g/dL (3.0-4.8); ALT/SGPT 29 U/L (7-56); AST/SGOT 44 U/L (17-59); BLOOD UREA NITROGEN 12 mg/dL (7-21); CALCIUM 8.3 mg/dL (8.4-10.5); GFR NON-AFRICAN AMERICAN > 60; LIPASE 507 U/L (23-300)
[2018-09-26] MEDS ORDERED: Iohexol 350 MG/100 ML VIAL ONE (00:47)
[2018-09-26] MEDS ORDERED: Potassium Chloride 40 mEq/30 ml LIQ UD PO STA (01:10)
[2018-09-26] MEDS ORDERED: Magnesium Sulfate 2 gm/50 ml 2 GM/50 ML BAG IVPB ONE (01:10)
[2018-09-26 02:08] LABS: HDL CHOLESTEROL 70 mg/dL (29-60)
[2018-09-26 02:19] LABS: LDL CHOLESTEROL 52 mg/dL (0-129)
[2018-09-26 02:26] LABS: ATYPICAL LYMPHOCYTE 13 % (0.0-0.0); BAND 1 % (0-2); MONOCYTE 21 % (1.0-6.0); NEUTROPHIL 53 % (50.0-70.0)
[2018-09-26 02:27] LABS: FREE T4 1.14 ng/dL (0.78-2.19)
[2018-09-26 02:27] LABS: LYMPHOCYTE 12 % (22.0-35.0)
[2018-09-26 02:28] LABS: PLATELET ESTIMATE NORMAL (NORMAL)
[2018-09-26 02:29] LABS: ROULEAU 1+
--- NOTE | 2018-09-26 04:38 | CP.PCM.PN ---
Subjective - Date & Time of Evaluation Date of Evaluation: 09/26/18 Time of Evaluation: 04:37 - Subjective Subjective: I was asked to co-sign order of toradol 30 mg IV x 1. Patient had complained of diffuse abdominal pain. Had no other complaints. No nausea, vomiting, diarrhoea, constipation, fever, chills. Medical record was reviewed. This 67 year old white male was admitted with history of abdominal pain of few days duration. Has PMH of GERD, alcoholism , gastritis, cholecystectomy, appendectomy. Objective - Vital Signs/Intake and Output Vital Signs (last 24 hours): Temp Pulse Resp BP Pulse Ox 98.5 F 88 20 158/78 H 98 09/26/18 02:17 09/26/18 02:17 09/26/18 02:41 09/26/18 02:17 09/26/18 02:17 - Medications Medications: Current Medications Potassium Chloride (Potassium Chloride 20 Meq/100 Ml) 20 meq in 100 mls @ 50 mls/hr IVPB Q2H [facility]IT Stop: 09/26/18 05:14 Last Admin: 09/26/18 02:59 Dose: 50 mls/hr - Labs Labs: 09/25/18 23:14 09/25/18 23:14 PT 12.8 SECONDS (9.4-12.5) H 09/25/18 23:14 INR 1.15 09/25/18 23:14 APTT 29.1 Seconds (26.9-38.3) 09/25/18 23:14 - Constitutional Appears: Well, No Acute Distress - Head Exam Head Exam: ATRAUMATIC, NORMAL INSPECTION, NORMOCEPHALIC - Eye Exam Eye Exam: Normal appearance - ENT Exam ENT Exam: Normal External Ear Exam - Neck Exam Neck Exam: Normal Inspection - Respiratory Exam Respiratory Exam: NORMAL BREATHING PATTERN - Cardiovascular Exam Cardiovascular Exam: absent: JVD - GI/Abdominal Exam GI & Abdominal Exam: Normal Bowel Sounds. absent: Distended, Tenderness, Rebound - Rectal Exam Rectal Exam: Deferred - Exam Additional comments: Deferred. - Extremities Exam Extremities Exam: Normal Inspection - Back Exam Back Exam: NORMAL INSPECTION - Neurological Exam Neurological Exam: Alert, Awake, Oriented x3 - Psychiatric Exam Psychiatric exam: Depressed, Normal Affect - Skin Skin Exam: Normal Color Assessment and Plan - Assessment and Plan (Free Text) Assessment: Abdominal pain. Alcohol abuse. Gastritis. GERD. History cholecystectomy. History appendectomy. Plan: Toradol 30 mg IV x 1 . Continue present management.
[2018-09-26 04:53] LABS: TROPONIN I < 0.01 ng/mL
[2018-09-26 06:44] LABS: URINE BILIRUBIN NEGATIVE (NEGATIVE); URINE BLOOD NEGATIVE (NEGATIVE); URINE GLUCOSE (UA) NEGATIVE (NEGATIVE); URINE LEUKOCYTE ESTERASE NEGATIVE Leu/uL (NEGATIVE); URINE PROTEIN NEGATIVE mg/dL (<30 mg/dL); URINE UROBILINOGEN 0.2 E.U./dL (<1 E.U./dL)
[2018-09-26 06:56] LABS: URINE APPEARANCE CLEAR (CLEAR); URINE COLOR YELLOW (YELLOW)
--- NOTE | 2018-09-26 09:17 | CT ---
Date of service: 09/26/2018 PROCEDURE: CT Abdomen and Pelvis with contrast HISTORY: Abdominal pain COMPARISON: 02/04/2017. TECHNIQUE: CT scan of the abdomen and pelvis was performed after administration of intravenous contrast. Oral contrast was not administered. Coronal and sagittal reformatted images were obtained. Contrast dose: 100 mL Omnipaque 350 Radiation dose: Total exam DLP = 252.53 mGy-cm. This CT exam was performed using one or more of the following dose reduction techniques: Automated exposure control, adjustment of the mA and/or kV according to patient size, and/or use of iterative reconstruction technique. FINDINGS: LOWER THORAX: There is subsegmental atelectasis in the lower lobes and small calcified nodule in the lateral right lung base. There is a small sliding hiatal hernia. LIVER: Mild hepatomegaly and fatty liver. Normal homogeneous enhancement. No gross lesion or ductal dilatation. GALLBLADDER AND BILE DUCTS: Surgically absent.. PANCREAS: Normal in size with homogeneous enhancement. No gross lesion or ductal dilatation. SPLEEN: Normal in size and appearance. ADRENALS: No discrete nodule. KIDNEYS AND URETERS: Normal in size with homogeneous enhancement. No hydronephrosis. No solid mass. There is a 4 mm nonobstructing stone in the upper pole of the left kidney. VASCULATURE: No aortic aneurysm. There are advanced aortic atherosclerotic calcifications present. An infrarenal IVC filter remains in place. BOWEL: Evaluation of the bowel is limited in the absence of oral contrast. There are fluid-filled mildly dilated small bowel lobes. There is moderate amount of stool in the colon. No bowel obstruction or wall thickening. APPENDIX: Normal appendix. PERITONEUM: No free fluid. No free air. LYMPH NODES: No enlarged lymph nodes. BLADDER: Well distended and normal in appearance. REPRODUCTIVE: The prostate gland is normal in size. BONES: There is a chronic superior endplate compression fracture deformity in the T12 vertebral body.. Within normal limits for the patient's age. Status post left hip arthroplasty. OTHER FINDINGS: There is interval increase in size of 5.8 x 2.3 x 6.3 cm lobular low-attenuation soft tissue mass in the superior retroperitoneum posterior to the head of the pancreas, anterior to the inferior vena cava and medial to the 2nd portion of the duodenum. There is mass causes mass effect and compression of the superior IVC . IMPRESSION: 1. Interval increase in size of 5.8 x 2.3 x 6.3 cm lobular low-density soft tissue mass in the right superior retroperitoneum concerning for retroperitoneal adenopathy versus retroperitoneal malignancy. Clinical follow-up and histopathologic correlation is advised. 2. Fluid-filled mildly dilated small bowel loops which may represent nonspecific acute infectious/inflammatory enteritis. 3. Additional comments as described above. A preliminary report was provided by [employer].
[2018-09-26] MEDS: Potassium Chloride 20 mEq/15 ml LIQ UD PO SCH (17:20)
--- NOTE | 2018-09-26 22:53 | CP.PCM.PN ---
Subjective - Date & Time of Evaluation Date of Evaluation: 09/26/18 Time of Evaluation: 22:52 - Subjective Subjective: # 22 angiocath was inserted in right hand dorsum. Patient has no complaints. VSS. Objective - Vital Signs/Intake and Output Vital Signs (last 24 hours): Temp Pulse Resp BP Pulse Ox 97.5 F L 76 18 124/80 94 L 09/26/18 18:00 09/26/18 18:00 09/26/18 18:00 09/26/18 18:00 09/26/18 17:26 Intake and Output: 09/26/18 09/27/18 18:59 06:59 Intake Total 1320 Output Total 1000 Balance 320 - Medications Medications: Current Medications Diazepam (Valium) 5 mg PO QID COUNT INCLUDES THE [facility]; Protocol Last Admin: 09/26/18 21:51 Dose: 5 mg Multivitamins (Thera Tab) 1 tab PO 0800 [facility] Pantoprazole Sodium (Protonix Ec Tab) 40 mg PO 0600 [facility] Potassium Chloride (Potassium Chloride Oral Soln) 20 meq PO BID COUNT INCLUDES THE [facility] Last Admin: 09/26/18 17:20 Dose: 20 meq Thiamine HCl (Vitamin B1 Tab) 100 mg PO DAILY COUNT INCLUDES THE [facility] Last Admin: 09/26/18 13:40 Dose: 100 mg Tramadol HCl (Ultram) 50 mg PO Q6 PRN PRN Reason: Pain, moderate (4-7) Last Admin: 09/26/18 22:31 Dose: 50 mg - Labs Labs: 09/25/18 23:14 09/25/18 23:14 PT 12.8 SECONDS (9.4-12.5) H 09/25/18 23:14 INR 1.15 09/25/18 23:14 APTT 29.1 Seconds (26.9-38.3) 09/25/18 23:14
--- NOTE | 2018-09-26 23:31 | CP.PCM.PN ---
Subjective - Date & Time of Evaluation Date of Evaluation: 09/26/18 Time of Evaluation: 23:30 - Subjective Subjective: I notice that patient is not seen by . Yesterday , I had spoken to in the ER. She told me that she called back and he had accepted patient. Objective - Vital Signs/Intake and Output Vital Signs (last 24 hours): Temp Pulse Resp BP Pulse Ox 97.5 F L 76 18 124/80 94 L 09/26/18 18:00 09/26/18 18:00 09/26/18 18:00 09/26/18 18:00 09/26/18 17:26 Intake and Output: 09/26/18 09/27/18 18:59 06:59 Intake Total 1320 Output Total 1000 Balance 320 - Medications Medications: Current Medications Diazepam (Valium) 5 mg PO QID [facility]; Protocol Last Admin: 09/26/18 21:51 Dose: 5 mg Multivitamins (Thera Tab) 1 tab PO 0800 [facility] Pantoprazole Sodium (Protonix Ec Tab) 40 mg PO 0600 [facility] Potassium Chloride (Potassium Chloride Oral Soln) 20 meq PO BID [facility] Last Admin: 09/26/18 17:20 Dose: 20 meq Thiamine HCl (Vitamin B1 Tab) 100 mg PO DAILY [facility] Last Admin: 09/26/18 13:40 Dose: 100 mg Tramadol HCl (Ultram) 50 mg PO Q6 PRN PRN Reason: Pain, moderate (4-7) Last Admin: 09/26/18 22:31 Dose: 50 mg - Labs Labs: 09/25/18 23:14 09/25/18 23:14 PT 12.8 SECONDS (9.4-12.5) H 09/25/18 23:14 INR 1.15 09/25/18 23:14 APTT 29.1 Seconds (26.9-38.3) 09/25/18 23:14
[2018-09-27] MEDS: Pantoprazole 40 mg EC Tab PO SCH (05:20)
--- NOTE | 2018-09-27 05:33 | CARD ---
APPROVED REPORT Date of service: 09/25/2018 EKG Measurement Heart [id number] <Conclusion> Sinus rhythm with occasional premature ventricular complexes and premature atrial complexes Otherwise normal ECG
[2018-09-27 07:49] LABS: BASO # 0.02 K/mm3 (0.0-2.0); BASO % 0.4 % (0.0-3.0); EOS # 0.1 (0.0-0.7); EOS % 2.5 % (1.5-5.0); HEMOGLOBIN 11.3 g/dL (14.0-18.0); LYMPH # 1.6 (1.2-3.4); LYMPH % 31.1 % (22.0-35.0); MEAN CELL VOLUME 94.3 fl (80.0-105.0); MEAN CORPUSCULAR HEMOGLOBIN 30.7 pg (25.0-35.0); MEAN CORPUSCULAR HGB CONC 32.6 g/dl (31.0-37.0); MEAN PLATELET VOLUME 9.4 fl (7.0-11.0); MONO # 1.3 (0.1-0.6); MONO % 24.7 % (1.0-6.0); RBC 3.68 10^6/uL (3.5-6.1); RED CELL DISTRIBUTION WIDTH 16.2 % (11.5-14.5); WHITE BLOOD COUNT 5.1 10^3/uL (4.5-11.0)
[2018-09-27 08:23] LABS: ALB/GLOB RATIO 1.1 (1.1-1.8); ALBUMIN 3.2 g/dL (3.0-4.8); ALT/SGPT 35 U/L (7-56); AST/SGOT 63 U/L (17-59); BLOOD UREA NITROGEN 6 mg/dL (7-21); CALCIUM 8.2 mg/dL (8.4-10.5); GFR NON-AFRICAN AMERICAN > 60
[2018-09-27] MEDS: Multivitamin Therapeutic Tab PO SCH (09:49)
[2018-09-27] MEDS: Potassium Chloride 20 mEq/15 ml LIQ UD PO SCH ×2 (09:49→17:39)
[2018-09-27] MEDS ORDERED: Gadodiamide 287 MG/ML VIAL (20ML) IV ONE (11:44)
--- NOTE | 2018-09-27 13:59 | PN ---
DATE: 09/27/2018 SUBJECTIVE: The patient is a 67-year-old male with a history of alcoholism, hypertension, COPD, gastroesophageal reflux disease. He is status post CVA, appendectomy, cholecystectomy and left femur fracture, who was admitted on the 09/26/2018 with abdominal pain, nausea, and vomiting. He has been treated with IV fluids with a proton pump inhibitor. He has also been given benzodiazepine for alcohol withdrawals. His last alcohol drink as per the patient was 5 days prior to presentation to the emergency room. The patient had been lost to me for followup over 3 to 5 years. When seen today, the patient is ambulating in the halls. He feels much better. He is thankful for the Valium to calm his nerves. PHYSICAL EXAMINATION: Essentially unchanged. ASSESSMENT AND PLAN: We are planning to discharge the patient to home in the morning. Physical therapy ambulation is encouraged today and we will followup on a questionable retroperitoneal mass post discharge as an outpatient. Austin Arce MD
[2018-09-27] MEDS ORDERED: Oxycodone/Acetaminophen 5/325 mg Tab PO ONE (15:13)
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
[2018-09-27] MEDS ORDERED: Alum-Mag Hydrox-Simethicone Susp (30 mL) PO ONE (19:26)
[2018-09-27] MEDS ORDERED: Alum-Mag Hydrox-Simethicone Susp (30 mL) PO PRN (19:35)
[2018-09-28] MEDS: Pantoprazole 40 mg EC Tab PO SCH (05:14)
[2018-09-28] MEDS: Multivitamin Therapeutic Tab PO SCH (08:48)
[2018-09-28] MEDS: Potassium Chloride 20 mEq/15 ml LIQ UD PO SCH ×2 (10:29→18:34)
--- NOTE | 2018-09-28 12:53 | MRI ---
Date of service: 09/27/2018 PROCEDURE: MRI Abdomen without contrast HISTORY: Retroperitoneal mass on CT COMPARISON: CT 09/26/2018 TECHNIQUE: Multisequence, multiplanar MR images of the abdomen without gadolinium contrast enhancement. FINDINGS: LIVER: Unremarkable. GALLBLADDER: Gallbladder removed SPLEEN: Unremarkable. ADRENALS: Unremarkable. KIDNEYS: Unremarkable. PANCREAS: There is a multiloculated cystic lesion in the uncinate process of the pancreas. This measures 42 mm in height by 39 mm wide by 29 mm AP. 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 A malignancy cannot be excluded. AORTA: No aneurysm. ASCITES: None. PERITONEUM: Unremarkable. LYMPH NODES: Unremarkable. OTHER FINDINGS: None. IMPRESSION: There is a multiloculated cystic lesion in the uncinate process of the pancreas. This measures 42 mm in height by 39 mm wide by 29 mm AP. 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 A malignancy cannot be excluded.
[2018-09-28 17:49] VITALS: RESP 20
[2018-09-29 06:14] VITALS: O2SAT 96
[2018-09-29] MEDS: Pantoprazole 40 mg EC Tab PO SCH (06:55)
[2018-09-29] MEDS: Multivitamin Therapeutic Tab PO SCH (08:25)
[2018-09-29] MEDS: Potassium Chloride 20 mEq/15 ml LIQ UD PO SCH (09:42)
[2018-09-29 12:02] VITALS: BP 122/84; PULSE 73; TEMP 97.9
== END 2018-09-29 14:54 | disposition home or self-care (01) | DRG 251 ==
LOC: ED 22:58 → ERH 09-26 01:18 → 2RNO 09-26 02:20
PROVIDERS: ADMIT Hospitalist; ATTEND Internal Medicine
DX: R10.9 Unspecified abdominal pain (principal); J44.9 Chronic obstructive pulmonary disease, unspecified; I10 Essential (primary) hypertension; R11.2 Nausea with vomiting, unspecified; F10.10 Alcohol abuse, uncomplicated; K21.9 Gastro-esophageal reflux disease without esophagitis; K29.70 Gastritis, unspecified, without bleeding; Y90.9 Presence of alcohol in blood, level not specified; Z86.73 Personal history of transient ischemic attack (TIA), and cerebral infarction without residual deficits